=== PATIENT | female | born 1995 | race African-American/Black ===

== ENCOUNTER 2023-04-02 13:26 | Emergency (ER) | payer MEDICAID, SELFPAY ==
[2023-04-02] VITALS (15 sets, daily range): BP systolic 105–168; BP diastolic 52–101; PULSE 80–108; RESP 15–27; TEMP 36.7; O2SAT 98; BMI 42.2
--- NOTE | 2023-04-02 13:41 | ECG_ITS ---
The [facility] Test Date: 2023-04-02 Pat Name: LILIANA RHODES Department: Room: - Gender: Female Field Rep: : 1995 Requested By: Order Number: [id number] Reading MD: SHARYN JOHNSON Measurements Intervals [place] Rate: 92 P: 61 NM: 140 QRS: 85 QRSD: 90 T: 13 QT: 344 QTc: 393 Interpretive Statements 1100 Sinus rhythm 1102 Sinus arrhythmia 9110 normal ECG No previous ECG available for comparison Electronically Signed On 04-02-2023 19:01:34 EDT by SHARYN JOHNSON
--- NOTE | 2023-04-02 13:42 | XR_ITS ---
[address] [address] Patient Name: LILIANA RHODES MRN: [id number] date: 1995 Sex: F Assigned Patient Location: ER Current Patient Location: ER Accession/Order Number: [id number] Exam Date: 04/02/2023 14:11 Report Date: 04/02/2023 15:07 At the request of: CHICHI RODRIGUEZ Procedure: XR chest 1V EXAMINATION: XR chest 1V HISTORY: Hypertension and headache COMPARISON: Chest x-rays 11/18/2022 TECHNIQUE: Portable chest FINDINGS: The lung parenchyma is free of consolidation or infiltrate. No pneumothorax or pleural effusion. The cardiac, mediastinal and hilar contours are normal. The visualized osseous structures exhibit no gross abnormality. XR/XR chest 1V IMPRESSION: No acute cardiopulmonary abnormality. Electronically authenticated by: KATHARINA JOHNSON Date: 04/02/2023 15:07
--- NOTE | 2023-04-02 13:42 | CT_ITS ---
The [address] [address] Patient Name: LILIANA RHODES MRN: [id number] date: 1995 Sex: F Assigned Patient Location: ER Current Patient Location: ER Accession/Order Number: [id number] Exam Date: 04/02/2023 14:13 Report Date: 04/02/2023 15:08 At the request of: CHICHI RODRIGUEZ Procedure: CT head/brain wo con CT head/brain wo con, 04/02/2023 2:13 PM EDT INDICATION: hypertension, headache COMPARISON: CT of the head dated 07/19/2017 TECHNIQUE: Axial CT images of the brain from skull base to vertex, including portions of the face and sinuses, were obtained without contrast . Multiplanar reformatted images were generated and reviewed as needed. Dose reduction techniques were achieved by using automated exposure control and/or adjustment of mA and/or kV according to patient size and/or use of iterative reconstruction technique. FINDINGS: The cerebral sulci as well as ventricular system are appropriate for age. There is no intracranial mass, mass effect, midline shift, intra or extra-axial fluid collection or hemorrhage. The visualized portions of orbits, mastoid air cells as well as paranasal sinuses are unremarkable. There is no suspicious osteolytic or osteoblastic lesion. CT/CT head/brain wo con IMPRESSION: No acute intracranial process is noted. Electronically authenticated by: COLE GOLDEN Date: 04/02/2023 15:08
--- NOTE | 2023-04-02 13:43 | ED_ITS ---
HPI - General Adult General Chief complaint: Dizziness Stated complaint: HEADACHE/DIZZINESS Time Seen by Provider: 04/02/23 13:29 Source: patient Mode of arrival: walk-in History of Present Illness HPI narrative: [age] female presents for elevated blood pressure and dizziness and headache. Over the past week her blood pressure has been running high, she's had it checked by coworkers. 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 She's never been treated for high blood pressure Related Data Allergies Allergy/AdvReac Type Severity Reaction Status Date / Time azithromycin Allergy Severe Verified 04/02/23 13:36 [From Zithromax Z-Mayank] Sulfa (Sulfonamide Allergy Severe Verified 04/02/23 13:36 Antibiotics) eggs Allergy Severe Uncoded 04/02/23 13:36 Review of Systems ROS Narrative A ten point review of systems is negative except as noted above. Exam Narrative Exam Narrative: Nurses note and vital signs reviewed and patient is not hypoxic. General: The patient appears well and in no apparent distress. Patient is resting comfortably on cart. Skin: Warm, dry, no pallor noted. There is no rash noted. Head: Normocephalic, atraumatic Eye: Normal conjunctiva, no drainage Ears, Nose, Mouth, and Throat: oral mucosa is moist. Nares patent. Cardiovascular: Regular Rate and Rhythm Respiratory: Patient is in no distress, no accessory muscle use, lungs are clear to auscultation, no wheezing, rales or rhonchi Back: non-tender GI: obese soft and nontender Musculoskeletal: The patient has no evidence of calf tenderness, no pitting codey ma, symmetrical pulses noted bilaterally Neurological: A&O, normal speech Psychiatric: Cooperative Constitutional Vital Signs, click to edit/add: Last Vital Signs Temp 98.1 F 04/02/23 13:31 Pulse 86 04/02/23 14:40 Resp 25 H 04/02/23 14:40 BP 122/82 04/02/23 14:31 Pulse Ox 98 04/02/23 13:31 Course Vital Signs Vital signs: Vital Signs Temperature 98.1 F 04/02/23 13:31 Pulse Rate 108 H 04/02/23 13:31 Respiratory Rate 16 04/02/23 13:31 Blood Pressure 168/101 H 04/02/23 13:31 Pulse Oximetry 98 04/02/23 13:31 Temperature 98.1 F 04/02/23 13:31 Pulse Rate 86 04/02/23 14:40 Respiratory Rate 25 H 04/02/23 14:40 Blood Pressure 122/82 04/02/23 14:31 Pulse Oximetry 98 04/02/23 13:31 Medical Decision Making MDM Narrative Medical decision making narrative: her workup is negative and her blood pressure is normalized without intervention. She'll be discharged home but will call her doctor in the morning for blood pressure rechecked. Treatment diagnosis and follow-up were discussed with the patient and her mother. Differential Diagnosis Differential Diagnosis: hypertension, renal dysfunction, anxiety Lab Data Lab results reviewed: Yes I reviewed the patient's lab results Labs: Lab Results 04/02/23 Range/Units 13:45 WBC 10.5 (4.0-11.0) 10^3/uL RBC 4.21 (4.20-5.40) 10^6/uL Hgb 11.3 L (12.0-16.0) g/dL Hct 35.8 L (36.0-48.0) % MCV 85.0 (81.0-99.0) fL MCH 26.8 (26.7-34.0) pg MCHC 31.6 (29.9-35.2) g/dL RDW 14.3 (11.0-15.0) % Plt Count 348 (150-450) 10^3/uL MPV 9.6 (9.5-13.5) fL Neut % (Auto) 66.9 (43.0-75.0) % Lymph % (Auto) 24.9 (20.5-60.0) % [place] % (Auto) 5.0 (1.7-12.0) % Eos % (Auto) 2.2 (0.9-7.0) % Baso % (Auto) 0.6 (0.2-2.0) % Neut # (Auto) 7.0 H (1.4-6.5) 10^3/uL Lymph # (Auto) 2.6 (1.2-3.8) 10^3/uL [place] # (Auto) 0.5 (0.3-0.8) 10^3/uL Eos # (Auto) 0.2 (0.0-0.7) 10^3/uL Baso # (Auto) 0.1 (0.0-0.1) 10^3/uL Abs Immat Gran (auto) 0.04 H (0.00-0.03) 10^3/uL Imm/Tot Granulo (auto) 0.4 (0.0-0.5) % Sodium 140 (136-145) mmol/L Potassium 3.5 (3.5-5.1) mmol/L Chloride 105 (98-107) mmol/L Carbon Dioxide 26.7 (21.0-32.0) mmol/L Anion Gap 11.8 BUN 9.0 (7.0-18.0) mg/dL Creatinine 0.74 (0.55-1.02) mg/dL Est GFR ( Amer) >60 (>=60) Est GFR (Non-Af Amer) >60 (>=60) BUN/Creatinine Ratio 12.2 Glucose 80 (74-106) mg/dL Calcium 8.8 (8.5-10.1) mg/dL Serum HCG, Qual Negative (NEGATIVE) Imaging Data CT brain and chest x-ray: Radiologist's impression: Procedure: CT head/brain wo con CT head/brain wo con, 04/02/2023 2:13 PM EDT INDICATION: hypertension, headache COMPARISON: CT of the head dated 07/19/2017 TECHNIQUE: Axial CT images of the brain from skull base to vertex, including portions of the face and sinuses, were obtained without contrast . Multiplanar reformatted images were generated and reviewed as needed. Dose reduction techniques were achieved by using automated exposure control and/or adjustment of mA and/or kV according to patient size and/or use of iterative reconstruction technique. FINDINGS: The cerebral sulci as well as ventricular system are appropriate for age. There is no intracranial mass, mass effect, midline shift, intra or extra-axial fluid collection or hemorrhage. The visualized portions of orbits, mastoid air cells as well as paranasal sinuses are unremarkable. There is no suspicious osteolytic or osteoblastic lesion. IMPRESSION: No acute intracranial process is noted. Electronically authenticated by: COLE GOLDEN Date: 04/02/2023 15:08 Procedure: XR chest 1V EXAMINATION: XR chest 1V HISTORY: Hypertension and headache COMPARISON: Chest x-rays 11/18/2022 TECHNIQUE: Portable chest FINDINGS: The lung parenchyma is free of consolidation or infiltrate. No pneumothorax or pleural effusion. The cardiac, mediastinal and hilar contours are normal. The visualized osseous structures exhibit no gross abnormality. IMPRESSION: No acute cardiopulmonary abnormality. Electronically authenticated by: KATHARINA JOHNSON Date: 04/02/2023 15:07 ECG Data Attestation: I personally reviewed and interpreted this ECG as follows: (EKG on my interpretation shows normal sinus rhythm, no acute changes, rate of 92.) Discharge Plan Discharge Chief Complaint: Dizziness Clinical Impression: Dizziness Patient Disposition: Home, Self-Care Time of Disposition Decision: 15:18 Condition: Good Mode of Transportation: Private Vehicle Instructions: Dizziness (ED) Additional Instructions: call your PCP in the morning for follow-up appointment and blood pressure recheck Stand Alone Forms: Portal Instructions Referrals: Physician,Non-Staff, MD [Primary Care Provider] - 1 week
[2023-04-02 13:51] LABS: Basophils Absolute Auto 0.1 10^3/uL (0.0-0.1); Basophils Percent Auto 0.6 % (0.2-2.0); Eosinophils Absolute Auto 0.2 10^3/uL (0.0-0.7); Eosinophils Percent Auto 2.2 % (0.9-7.0); Hematocrit 35.8 % (36.0-48.0); Hemoglobin 11.3 g/dL (12.0-16.0); Immature Granulocytes Abs Auto 0.04 10^3/uL (0.00-0.03); Immature Granulocytes Pct Auto 0.4 % (0.0-0.5); Lymphocytes Absolute Auto 2.6 10^3/uL (1.2-3.8); Lymphocytes Percent Auto 24.9 % (20.5-60.0); Mean Corpuscular HGB Conc 31.6 g/dL (29.9-35.2); Mean Corpuscular Hemoglobin 26.8 pg (26.7-34.0); Mean Platelet Volume 9.6 fL (9.5-13.5); Monocytes Absolute Auto 0.5 10^3/uL (0.3-0.8); Neutrophils Percent Auto 66.9 % (43.0-75.0); Platelet Count 348 10^3/uL (150-450); Red Blood Count 4.21 10^6/uL (4.20-5.40); Red Cell Distribution Width 14.3 % (11.0-15.0); White Blood Count 10.5 10^3/uL (4.0-11.0)
[2023-04-02 14:02] LABS: Anion Gap 11.8; BUN Creatinine Ratio 12.2; Calcium 8.8 mg/dL (8.5-10.1); Carbon Dioxide 26.7 mmol/L (21.0-32.0); Chloride 105 mmol/L (98-107); Estimated GFR (African America >60 (>=60); Estimated GFR (Non-African Ame >60 (>=60); Glucose 80 mg/dL (74-106); HCG Qualitative NEGATIVE (NEGATIVE); Potassium 3.5 mmol/L (3.5-5.1); Sodium 140 mmol/L (136-145)
== END 2023-04-02 15:40 | disposition home or self-care (01) ==
PROVIDERS: Emergency Provider Emergency Medicine
DX: R42 Dizziness and giddiness (principal)
CPT/HCPCS: 36415; 70450; 71045; 80048; 84703; 85025; 93005; 99285

== ENCOUNTER 2023-06-30 19:19 | Emergency (ER) | payer MEDICAID, SELFPAY ==
[2023-06-30 19:24] VITALS: BP 160/95; PULSE 115; RESP 20; TEMP 37.2; O2SAT 97; BMI 45.6
--- NOTE | 2023-06-30 19:31 | CT_ITS ---
The [address] [address] Patient Name: LILIANA RHODES MRN: [id number] date: 1995 Sex: F Assigned Patient Location: ER Current Patient Location: ER Accession/Order Number: [id number] Exam Date: 06/30/2023 20:27 Report Date: 06/30/2023 21:29 At the request of: KENNY HADDAD Procedure: CT abdomen pelvis w con CT ABDOMEN AND PELVIS WITH CONTRAST: INDICATION: llq pain with diarrhea. COMPARISON: None. TECHNIQUE:Multiple thin section transaxial slices were acquired through the abdomen and pelvis with intravenous contrast. Coronal and sagittal reconstructed images were reviewed. Oral contrastWas not administered. FINDINGS: LOWER CHEST: The lower chest is unremarkable. LIVER: The liver is unremarkable. GALLBLADDER AND BILIARY SYSTEM: No obvious ductal dilation. No calcified stones. SPLEEN: The spleen is unremarkable. PANCREAS: The pancreas is unremarkable. ADRENAL GLANDS: The adrenal glands are unremarkable. KIDNEYS AND URETERS: There is no hydronephrosis of the kidneys.There is a cortical based heterogeneous high attenuation nodular density arising from the posterior medial mid right kidney measuring 1.0 cm. This is not compatible with a simple cyst. The ureters are within normal limits without obstructing urologic calcifications. VASCULATURE: Vascularity is unremarkable. PERITONEUM/RETROPERITONEUM: Peritoneum/retroperitoneum is unremarkable. LYMPH NODES: No suspicious lymphadenopathy. GASTROINTESTINAL TRACT: The bowel is normal in caliber.No acute inflammatory changes are present in the bowel.The appendix is visualized and is not inflamed. BLADDER: The urinary bladder is unremarkable. REPRODUCTIVE SYSTEM: Reproductive system is unremarkable. BODY WALL: There is a tiny fat-containing umbilical hernia. BONES: Osseous structures are unremarkable. CT/CT abdomen pelvis w con IMPRESSION: 1. No acute inflammatory process or obstructive uropathy is present in the abdomen or pelvis. 2. Heterogeneous hyperdense nodule arising from the posterior medial right kidney measuring 1.0 cm not compatible with a simple cyst. Given the size and location of this finding in the kidney, renal protocol CT would be recommended for better characterization. Electronically authenticated by: NADEEM CASTRO Date: 06/30/2023 21:29
--- NOTE | 2023-06-30 19:39 | ED_ITS ---
Documented by User: Janice Haddad 07/07/23 13:43 HPI - General Adult General Chief complaint: Abdominal Pain Stated complaint: Dizziness Abdominal Pain Time Seen by Provider: 06/30/23 19:25 Source: patient Mode of arrival: walk-in History of Present Illness HPI narrative: 28-year-old female presents to the er with chief complaint of left lower quadrant abdominal pain. She states she's had diarrhea for the last twenty-four hours. She feels dizziness and lightheaded because he's not been able to eat or drink. She states she has had dizziness on and off for last 2-3 weeks. Patient states she does have a history of vertigo but the dizziness is different. She states she also feels congested. Patient has pain to palpation the left lower quadrant. Denies any known history of . Related Data Home Medications Medication Instructions Recorded Confirmed aspirin 325 mg capsule 325 mg PO DAILY 06/30/23 06/30/23 Previous Rx's Medication Instructions Recorded hyoscyamine sulfate 0.125 mg 0.125 mg PO Q6H PRN abdominal pain 06/30/23 sublingual tablet (Levsin/SL) #20 tabs ondansetron 4 mg disintegrating 4 mg PO Q6H PRN nausea and 06/30/23 tablet vomiting #20 tabs Allergies Allergy/AdvReac Type Severity Reaction Status Date / Time azithromycin Allergy Severe Verified 06/30/23 19:31 [From Zithromax Z-Myaank] Sulfa (Sulfonamide Allergy Severe Verified 06/30/23 19:31 Antibiotics) eggs Allergy Severe Uncoded 06/30/23 19:31 Review of Systems ROS Narrative All Systems are negative except as noted/marked.All systems reviewed and otherwise negative Exam Narrative Exam Narrative: Nurses note and vital signs reviewed and patient is not hypoxic. General: The patient appears well and in no apparent distress. Patient is resting comfortably on cart. Skin: Warm, dry, no pallor noted. There is no rash noted. Head: Normocephalic, atraumatic eyes:perrl. no nystagmus Ears, Nose, Mouth, and Throat: oral mucosa is moist. Nares patent. Mouth without vesicles. Ear canals patent. Tm's without Erythema Cardiovascular: Regular Rate and Rhythm Respiratory: Patient is in no distress, no accessory muscle use, lungs are clear to auscultation, no wheezing, rales or rhonchi Back: non-tender, no CVA tenderness bilaterally to percussion. GI: LLQ pain to palpation, no rebound or guarding. Normal bowel sounds, no tenderness to palpation, no masses appreciated. No rebound, guarding, or rigidity noted. Musculoskeletal: The patient has no evidence of calf tenderness, no pitting edema, symmetrical pulses noted bilaterally Neurological: A&O x4, normal speech Psychiatric: Cooperative Constitutional Vital Signs, click to edit/add: Last Vital Signs Temp 98.9 F 06/30/23 19:24 Pulse 92 H 06/30/23 21:46 Resp 16 06/30/23 21:46 BP 143/89 H 06/30/23 21:46 Pulse Ox 98 06/30/23 21:46 O2 Del Method Room Air 06/30/23 20:44 Course Vital Signs Vital signs: Vital Signs Temperature 98.9 F 06/30/23 19:24 Pulse Rate 115 H 06/30/23 19:24 Respiratory Rate 20 06/30/23 19:24 Blood Pressure 160/95 H 06/30/23 19:24 Pulse Oximetry 97 06/30/23 19:24 Oxygen Delivery Method Room Air 06/30/23 19:24 Temperature 98.9 F 06/30/23 19:24 Pulse Rate 92 H 06/30/23 21:46 Respiratory Rate 16 06/30/23 21:46 Blood Pressure 143/89 H 06/30/23 21:46 Pulse Oximetry 98 06/30/23 21:46 Oxygen Delivery Method Room Air 06/30/23 20:44 Medical Decision Making MDM Narrative Medical decision making narrative: Patient presents emergency room chief complaint of left lower quadrant abdominal pain with mild tenderness to palpation. She also states she's had diarrhea with radiation into her back for pain as well. Patient is returned from CT scan of abdomen, pending results. Physician of care to Dr. Weiner. Patient stable IV and fluids up and establish she was also medicated with Zofran and Toradol. Medical Records Medical records reviewed: Yes I reviewed the patient's medical records Lab Data Lab results reviewed: Yes I reviewed the patient's lab results Labs: Lab Results 06/30/23 06/30/23 06/30/23 Range/Units 19:34 19:37 19:55 WBC 12.9 H (4.0-11.0) 10^3/uL RBC 4.44 (4.20-5.40) 10^6/uL Hgb 11.7 L (12.0-16.0) g/dL Hct 36.7 (36.0-48.0) % MCV 82.7 (81.0-99.0) fL MCH 26.4 L (26.7-34.0) pg MCHC 31.9 (29.9-35.2) g/dL RDW 14.3 (11.0-15.0) % Plt Count 436 (150-450) 10^3/uL MPV 9.5 (9.5-13.5) fL Neut % (Auto) 75.9 H (43.0-75.0) % Lymph % (Auto) 16.7 L (20.5-60.0) % [place] % (Auto) 6.4 (1.7-12.0) % Eos % (Auto) 0.3 L (0.9-7.0) % Baso % (Auto) 0.2 (0.2-2.0) % Neut # (Auto) 9.8 H (1.4-6.5) 10^3/uL Lymph # (Auto) 2.2 (1.2-3.8) 10^3/uL [place] # (Auto) 0.8 (0.3-0.8) 10^3/uL Eos # (Auto) 0.0 (0.0-0.7) 10^3/uL Baso # (Auto) 0.0 (0.0-0.1) 10^3/uL Abs Immat Gran (auto) 0.06 H (0.00-0.03) 10^3/uL Imm/Tot Granulo (auto) 0.5 (0.0-0.5) % Sodium 136 (136-145) mmol/L Potassium 3.2 L (3.5-5.1) mmol/L Chloride 103 (98-107) mmol/L Carbon Dioxide 25.8 (21.0-32.0) mmol/L Anion Gap 10.4 BUN 11.0 (7.0-18.0) mg/dL Creatinine 0.92 (0.55-1.02) mg/dL Est GFR ( Amer) >60 (>=60) Est GFR (Non-Af Amer) >60 (>=60) BUN/Creatinine Ratio 12.0 Glucose 94 (74-106) mg/dL Calcium 9.0 (8.5-10.1) mg/dL Total Bilirubin 0.4 (0.2-1.0) mg/dL AST 8 L (15-37) U/L ALT 15 (14-59) U/L Alkaline Phosphatase 69 (46-116) U/L Total Protein 7.2 (6.4-8.2) g/dL Albumin 3.4 (3.4-5.0) g/dL Globulin 3.8 g/dL Albumin/Globulin Ratio 0.9 Lipase 31.0 (16.0-77.0) U/L Urine Color Lt. yellow (YELLOW) Urine Clarity Clear (CLEAR) Urine pH 6.5 (5.0-9.0) Ur Specific [place] <=1.005 A (1.005-1.025) Urine Protein Negative (NEG/TRACE) mg/dL Urine Glucose (UA) Negative (NEGATIVE) mg/dL Urine Ketones Negative (NEGATIVE) mg/dL Urine Occult Blood Large A (NEGATIVE) Urine Nitrite Negative (NEGATIVE) Urine Bilirubin Negative (NEGATIVE) Urine Urobilinogen 0.2 (0.2-1.0) EU/dL Ur Leukocyte Esterase Negative (NEGATIVE) Urine RBC 2-5 A (0-2) #/HPF Urine WBC None seen (NONE SEEN) #/HPF Ur Squamous Epith Cells None seen (NONE/RARE) #/LPF Urine Crystals None seen (None Seen) #/HPF Urine Bacteria None seen (NONE SEEN) #/HPF Urine Casts None seen (NONE SEEN) #/LPF Urine Mucus None seen (NONE SEEN) Urine HCG, Qual Negative (NEGATIVE) SARS-CoV-2 (PCR) Negative (NEGATIVE) SARS-CoV-2 RNA (MARY) Not detected (NOT DETECTE) Discharge Plan Discharge Chief Complaint: Abdominal Pain Clinical Impression: Abdominal pain Patient Disposition: Home, Self-Care Time of Disposition Decision: 21:41 Prescriptions / Home Meds: New ondansetron 4 mg tablet,disintegrating 4 mg PO Q6H PRN (Reason: nausea and vomiting) Qty: 20 0RF hyoscyamine sulfate [Levsin/SL] 0.125 mg tablet, sublingual 0.125 mg PO Q6H PRN (Reason: abdominal pain) Qty: 20 0RF No Action aspirin 325 mg capsule 325 mg PO DAILY Instructions: Abdominal Pain (ED) Stand Alone Forms: Portal Instructions Referrals: Physician,Non-Staff, MD [Primary Care Provider] - 1 week Discharge Date/Time: 06/30/23 21:52 Documented by User: uEgenio Weiner 06/30/23 21:42 HPI - General Adult General Chief complaint: Abdominal Pain Stated complaint: Dizziness Abdominal Pain Time Seen by Provider: 06/30/23 19:25 Related Data Home Medications Medication Instructions Recorded Confirmed aspirin 325 mg capsule 325 mg PO DAILY 06/30/23 06/30/23 Previous Rx's Medication Instructions Recorded hyoscyamine sulfate 0.125 mg 0.125 mg PO Q6H PRN abdominal pain 06/30/23 sublingual tablet (Levsin/SL) #20 tabs ondansetron 4 mg disintegrating 4 mg PO Q6H PRN nausea and 06/30/23 tablet vomiting #20 tabs Allergies Allergy/AdvReac Type Severity Reaction Status Date / Time azithromycin Allergy Severe Verified 06/30/23 19:31 [From Zithromax Z-Mayank] Sulfa (Sulfonamide Allergy Severe Verified 06/30/23 19:31 Antibiotics) eggs Allergy Severe Uncoded 06/30/23 19:31 Exam Constitutional Vital Signs, click to edit/add: Last Vital Signs Temp 98.9 F 06/30/23 19:24 Pulse 92 H 06/30/23 21:46 Resp 16 06/30/23 21:46 BP 143/89 H 06/30/23 21:46 Pulse Ox 98 06/30/23 21:46 O2 Del Method Room Air 06/30/23 20:44 Course Vital Signs Vital signs: Vital Signs Temperature 98.9 F 06/30/23 19:24 Pulse Rate 115 H 06/30/23 19:24 Respiratory Rate 20 06/30/23 19:24 Blood Pressure 160/95 H 06/30/23 19:24 Pulse Oximetry 97 06/30/23 19:24 Oxygen Delivery Method Room Air 06/30/23 19:24 Temperature 98.9 F 06/30/23 19:24 Pulse Rate 92 H 06/30/23 21:46 Respiratory Rate 16 06/30/23 21:46 Blood Pressure 143/89 H 06/30/23 21:46 Pulse Oximetry 98 06/30/23 21:46 Oxygen Delivery Method Room Air 06/30/23 20:44 Medical Decision Making MDM Narrative Medical decision making narrative: Patient presents emergency room chief complaint of left lower quadrant abdominal pain with mild tenderness to palpation. She also states she's had diarrhea with radiation into her back for pain as well. Patient is returned from CT scan of abdomen, pending results. Physician of care to Dr. Weiner. Patient stable IV and fluids up and establish she was also medicated with Zofran and Toradol. Attending physician note - patient was examined and evaluated by the PA - see her note. I met with the patient and evaluated her. Reviewed her tests results - CT abd/pelvis did not reveal any acute pathology to account for the patient's pain/symptoms, Incidental findings of right renal cyst - patient informed and given copy of rad report to take with her for PCP follow up and non emergent renal CT. WBC slightly elevated at 12.9. Potassium slightly decreased at 3.2. Normal renal function and LFTs. Negative Lipase. UA with occult blood but no other sign of infection. She is on her menstrual period now. Covid negative. Patient given reassurance with negative ED workup. Discharged home with prescriptions for Levsin and ODT Zofran. Instructed to maintain clear liquid diet and advance as tolerated. PCP follow up recommended. ED return if she worsens. - Alexander, DO Lab Data Labs: Lab Results 06/30/23 06/30/23 06/30/23 Range/Units 19:34 19:37 19:55 WBC 12.9 H (4.0-11.0) 10^3/uL RBC 4.44 (4.20-5.40) 10^6/uL Hgb 11.7 L (12.0-16.0) g/dL Hct 36.7 (36.0-48.0) % MCV 82.7 (81.0-99.0) fL MCH 26.4 L (26.7-34.0) pg MCHC 31.9 (29.9-35.2) g/dL RDW 14.3 (11.0-15.0) % Plt Count 436 (150-450) 10^3/uL MPV 9.5 (9.5-13.5) fL Neut % (Auto) 75.9 H (43.0-75.0) % Lymph % (Auto) 16.7 L (20.5-60.0) % [place] % (Auto) 6.4 (1.7-12.0) % Eos % (Auto) 0.3 L (0.9-7.0) % Baso % (Auto) 0.2 (0.2-2.0) % Neut # (Auto) 9.8 H (1.4-6.5) 10^3/uL Lymph # (Auto) 2.2 (1.2-3.8) 10^3/uL [place] # (Auto) 0.8 (0.3-0.8) 10^3/uL Eos # (Auto) 0.0 (0.0-0.7) 10^3/uL Baso # (Auto) 0.0 (0.0-0.1) 10^3/uL Abs Immat Gran (auto) 0.06 H (0.00-0.03) 10^3/uL Imm/Tot Granulo (auto) 0.5 (0.0-0.5) % Sodium 136 (136-145) mmol/L Potassium 3.2 L (3.5-5.1) mmol/L Chloride 103 (98-107) mmol/L Carbon Dioxide 25.8 (21.0-32.0) mmol/L Anion Gap 10.4 BUN 11.0 (7.0-18.0) mg/dL Creatinine 0.92 (0.55-1.02) mg/dL Est GFR ( Amer) >60 (>=60) Est GFR (Non-Af Amer) >60 (>=60) BUN/Creatinine Ratio 12.0 Glucose 94 (74-106) mg/dL Calcium 9.0 (8.5-10.1) mg/dL Total Bilirubin 0.4 (0.2-1.0) mg/dL AST 8 L (15-37) U/L ALT 15 (14-59) U/L Alkaline Phosphatase 69 (46-116) U/L Total Protein 7.2 (6.4-8.2) g/dL Albumin 3.4 (3.4-5.0) g/dL Globulin 3.8 g/dL Albumin/Globulin Ratio 0.9 Lipase 31.0 (16.0-77.0) U/L Urine Color Lt. yellow (YELLOW) Urine Clarity Clear (CLEAR) Urine pH 6.5 (5.0-9.0) Ur Specific [place] <=1.005 A (1.005-1.025) Urine Protein Negative (NEG/TRACE) mg/dL Urine Glucose (UA) Negative (NEGATIVE) mg/dL Urine Ketones Negative (NEGATIVE) mg/dL Urine Occult Blood Large A (NEGATIVE) Urine Nitrite Negative (NEGATIVE) Urine Bilirubin Negative (NEGATIVE) Urine Urobilinogen 0.2 (0.2-1.0) EU/dL Ur Leukocyte Esterase Negative (NEGATIVE) Urine RBC 2-5 A (0-2) #/HPF Urine WBC None seen (NONE SEEN) #/HPF Ur Squamous Epith Cells None seen (NONE/RARE) #/LPF Urine Crystals None seen (None Seen) #/HPF Urine Bacteria None seen (NONE SEEN) #/HPF Urine Casts None seen (NONE SEEN) #/LPF Urine Mucus None seen (NONE SEEN) Urine HCG, Qual Negative (NEGATIVE) SARS-CoV-2 (PCR) Negative (NEGATIVE) SARS-CoV-2 RNA (MARY) Not detected (NOT DETECTE) Imaging Data CT scan - abdomen: Radiologist's impression: Patient Name: LILIANA RHODES MRN: [id number] date: 1995 Sex: F Assigned Patient Location: ER Current Patient Location: ER Accession/Order Number: [id number] Exam Date: 06/30/2023 20:27 Report Date: 06/30/2023 21:29 At the request of: JANICE HADDAD Procedure: CT abdomen pelvis w con CT ABDOMEN AND PELVIS WITH CONTRAST: INDICATION: llq pain with diarrhea. COMPARISON: None. TECHNIQUE:Multiple thin section transaxial slices were acquired through the abdomen and pelvis with intravenous contrast. Coronal and sagittal reconstructed images were reviewed. Oral contrastWas not administered. FINDINGS: LOWER CHEST: The lower chest is unremarkable. LIVER: The liver is unremarkable. GALLBLADDER AND BILIARY SYSTEM: No obvious ductal dilation. No calcified stones. SPLEEN: The spleen is unremarkable. PANCREAS: The pancreas is unremarkable. ADRENAL GLANDS: The adrenal glands are unremarkable. KIDNEYS AND URETERS: There is no hydronephrosis of the kidneys.There is a cortical based heterogeneous high attenuation nodular density arising from the posterior medial mid right kidney measuring 1.0 cm. This is not compatible with a simple cyst. The ureters are within normal limits without obstructing urologic calcifications. VASCULATURE: Vascularity is unremarkable. PERITONEUM/RETROPERITONEUM: Peritoneum/retroperitoneum is unremarkable. LYMPH NODES: No suspicious lymphadenopathy. GASTROINTESTINAL TRACT: The bowel is normal in caliber.No acute inflammatory changes are present in the bowel.The appendix is visualized and is not inflamed. BLADDER: The urinary bladder is unremarkable. REPRODUCTIVE SYSTEM: Reproductive system is unremarkable. BODY WALL: There is a tiny fat-containing umbilical hernia. BONES: Osseous structures are unremarkable. IMPRESSION: 1. No acute inflammatory process or obstructive uropathy is present in the abdomen or pelvis. 2. Heterogeneous hyperdense nodule arising from the posterior medial right kidney measuring 1.0 cm not compatible with a simple cyst. Given the size and location of this finding in the kidney, renal protocol CT would be recommended for better characterization. Electronically authenticated by: NADEEM CASTRO Date: 06/30/2023 21:29 Discharge Plan Discharge Chief Complaint: Abdominal Pain Clinical Impression: Abdominal pain Patient Disposition: Home, Self-Care Time of Disposition Decision: 21:41 Prescriptions / Home Meds: New ondansetron 4 mg tablet,disintegrating 4 mg PO Q6H PRN (Reason: nausea and vomiting) Qty: 20 0RF hyoscyamine sulfate [Levsin/SL] 0.125 mg tablet, sublingual 0.125 mg PO Q6H PRN (Reason: abdominal pain) Qty: 20 0RF No Action aspirin 325 mg capsule 325 mg PO DAILY Instructions: Abdominal Pain (ED) Stand Alone Forms: Portal Instructions Referrals: Physician,Non-Staff, MD [Primary Care Provider] - 1 week Discharge Date/Time: 06/30/23 21:52
[2023-06-30 19:43] VITALS: O2SAT 98
[2023-06-30] MEDS: ONDANSETRON PF 4 MG/2 ML VIAL IV (19:47)
[2023-06-30] MEDS: KETOROLAC TROMETHAMINE 30 MG/ML VIAL IVP (19:47)
[2023-06-30] MEDS: 0.9 % SODIUM CHLORIDE 1,000 ML 999 ML IV (19:48)
[2023-06-30 19:51] LABS: Basophils Percent Auto 0.2 % (0.2-2.0); Eosinophils Percent Auto 0.3 % (0.9-7.0); Hematocrit 36.7 % (36.0-48.0); Hemoglobin 11.7 g/dL (12.0-16.0); Immature Granulocytes Abs Auto 0.06 10^3/uL (0.00-0.03); Immature Granulocytes Pct Auto 0.5 % (0.0-0.5); Lymphocytes Absolute Auto 2.2 10^3/uL (1.2-3.8); Lymphocytes Percent Auto 16.7 % (20.5-60.0); Mean Corpuscular HGB Conc 31.9 g/dL (29.9-35.2); Mean Corpuscular Hemoglobin 26.4 pg (26.7-34.0); Mean Corpuscular Volume 82.7 fL (81.0-99.0); Mean Platelet Volume 9.5 fL (9.5-13.5); Monocytes Absolute Auto 0.8 10^3/uL (0.3-0.8); Monocytes Percent Auto 6.4 % (1.7-12.0); Neutrophils Absolute Auto 9.8 10^3/uL (1.4-6.5); Neutrophils Percent Auto 75.9 % (43.0-75.0); Platelet Count 436 10^3/uL (150-450); Red Blood Count 4.44 10^6/uL (4.20-5.40); Red Cell Distribution Width 14.3 % (11.0-15.0); White Blood Count 12.9 10^3/uL (4.0-11.0)
[2023-06-30 19:52] LABS: Bilirubin Urine NEGATIVE (NEGATIVE); Blood Urine LARGE (NEGATIVE); Clarity Urine CLEAR (CLEAR); Color Urine LT. YELLOW (YELLOW); Glucose Urine UA NEGATIVE (NEGATIVE); Ketones Urine NEGATIVE (NEGATIVE); Leukocyte Esterase Urine NEGATIVE (NEGATIVE); Nitrite Urine NEGATIVE (NEGATIVE); Protein Urine NEGATIVE (NEG/TRACE); Specific Gravity Urine <=1.005 (1.005-1.025); Urobilinogen Urine 0.2 EU/dL (0.2-1.0); pH Urine 6.5 (5.0-9.0)
[2023-06-30 19:57] LABS: HCG Qualitative Urine* NEGATIVE (NEGATIVE)
[2023-06-30 20:05] LABS: Bacteria Urine NONE SEEN #/HPF (NONE SEEN); Cast Seen? NONE SEEN #/LPF (NONE SEEN); Crystals Seen? None Seen #/HPF (None Seen); Mucus Urine NONE SEEN (NONE SEEN); Squamous Epithelial Cell Urine NONE SEEN #/LPF (NONE/RARE); WBC Urine NONE SEEN #/HPF (NONE SEEN)
[2023-06-30 20:15] LABS: Alanine Aminotransferase 15 U/L (14-59); Albumin Globulin Ratio 0.9; Albumin Level 3.4 g/dL (3.4-5.0); Alkaline Phosphatase 69 U/L (46-116); Anion Gap 10.4; Aspartate Amino Transferase 8 U/L (15-37); Bilirubin Total 0.4 mg/dL (0.2-1.0); Carbon Dioxide 25.8 mmol/L (21.0-32.0); Chloride 103 mmol/L (98-107); Estimated GFR (African America >60 (>=60); Estimated GFR (Non-African Ame >60 (>=60); Globulin 3.8 g/dL; Glucose 94 mg/dL (74-106); Potassium 3.2 mmol/L (3.5-5.1); Sodium 136 mmol/L (136-145); Total Protein 7.2 g/dL (6.4-8.2)
[2023-06-30 20:39] LABS: SARS-CoV-2 Ag NEGATIVE (NEGATIVE)
[2023-06-30 20:44] VITALS: BP 129/76; PULSE 98; RESP 16; O2SAT 97
[2023-06-30] MEDS: POTASSIUM CHLORIDE 10 MEQ ER TABLET 40 MEQ PO (21:21)
[2023-06-30 21:46] VITALS: BP 143/89; PULSE 92; RESP 16; O2SAT 98
[2023-07-01 13:17] LABS: SARS-CoV-2 NAA NOT DETECTED (NOT DETECTE)
== END 2023-06-30 21:52 | disposition home or self-care (01) ==
PROVIDERS: Physician Assistant; Emergency Provider Emergency Medicine
DX: R10.32 Left lower quadrant pain (principal); R19.7 Diarrhea, unspecified; R42 Dizziness and giddiness; Z79.82 Long term (current) use of aspirin
CPT/HCPCS: 36415; 74177; 80053; 81001; 83690; 84703; 85025; 87635; 87811; 96374; 96375; 99285; Q9967

== ENCOUNTER 2023-07-27 14:33 | Outpatient (OUT) | payer MEDICAID, SELFPAY ==
[2023-07-27 14:44] LABS: Basophils Absolute Auto 0.1 10^3/uL (0.0-0.1); Basophils Percent Auto 0.8 % (0.2-2.0); Eosinophils Absolute Auto 0.8 10^3/uL (0.0-0.7); Hematocrit 36.7 % (36.0-48.0); Hemoglobin 11.4 g/dL (12.0-16.0); Immature Granulocytes Abs Auto 0.03 10^3/uL (0.00-0.03); Immature Granulocytes Pct Auto 0.4 % (0.0-0.5); Lymphocytes Absolute Auto 1.9 10^3/uL (1.2-3.8); Mean Corpuscular HGB Conc 31.1 g/dL (29.9-35.2); Mean Corpuscular Volume 83.8 fL (81.0-99.0); Mean Platelet Volume 9.2 fL (9.5-13.5); Monocytes Absolute Auto 0.5 10^3/uL (0.3-0.8); Monocytes Percent Auto 6.4 % (1.7-12.0); Neutrophils Absolute Auto 4.2 10^3/uL (1.4-6.5); Neutrophils Percent Auto 56.4 % (43.0-75.0); Platelet Count 359 10^3/uL (150-450); Red Blood Count 4.38 10^6/uL (4.20-5.40); Red Cell Distribution Width 14.6 % (11.0-15.0); White Blood Count 7.5 10^3/uL (4.0-11.0)
--- OUTSIDE RECORDS SUMMARY | 2023-07-27 14:44 | XMS_ITS | CCD ---
Author Name Unknown Address [address] [place] [address] Organization [facility] Care Team Providers Care Retina Subspecialist Name Role Phone Zoran Flores Primary Care Provider Heather Taylor MD Unavailable Michael Wiseman MD Unavailable Heather Taylor MD Unavailable [phone] Michael Wiseman MD Unavailable Heather Taylor MD Unavailable Michael Wiseman MD Unavailable [phone] PROVIDER, UNKNOWN Attending Unavailable PROVIDER, UNKNOWN Admitting Unavailable PATIENT, SELF Referring Unavailable SANDRA, DR ZORAN Baez Consulting Unavailable EDITHEREDel, DR ZORAN Baez Primary Care Unavailable NADERER, DR ZORAN Baez Admitting Unavailable NADEREDel, DR ZORAN Baez Attending Unavailable NADEREDel, DR ZORAN Baez Primary Care Unavailable MISC, DR HOFFMAN Attending Unavailable MISC, DR HOFFMAN Consulting Unavailable MISC, DR HOFFMAN Admitting Unavailable LELEONARD Consulting Unavailable MISC, DR HOFFMAN Admitting Unavailable MISC, DR HOFFMAN Attending Unavailable NADEREDel, DR ZORAN Baez Primary Care Unavailable NADERER, DR ZORAN Baez Primary Care Unavailable PAY ., DR MELO Admitting Unavailable PAY ., DR MELO Attending Unavailable PAY ., DR MELO Consulting Unavailable MATEUS BUTCHER Consulting Unavailable LAKESHIA CAMEJO Consulting Unavailable Maribel Flanagan Unavailable MD Zoran Flores Primary Care Provider CHELY Flanagan Attending Provider ZORAN FLORES Primary Care Unavailabl e Maribel Flanagan Attending Unavailable Maribel Flanagan Admitting Unavailable Zoran Flores Primary Care Unavailable Jeremiah Chen Unavailable MARYANA AMADOR Referring Unavailable HANY ELLISON Attending Unavailable Allergies Allergy Classification Reported Allergen(s) Allergy Type Date of Onset Reaction(s) Facility Pollen (4 sources) bee pollen Substance Allergy 06-10-20 15 Itching [facility] Sulfonamides (antibiotic) (4 sources) Sulfonamides (Antibiotic) Drug Allergy 06-10-20 15 Nausea And Vomiting [facility] (3 sources) bee pollen; Translations: [POLLEN EXTRACT] Propensity to adverse reactions to drug 06-10-20 15 Itching [facility] Work Phone: (3 sources) Sulfonamides (Antibiotic); Translations: [SULFA ANTIBIOTICS] Propensity to adverse reactions to drug 06-10-20 15 Nausea And Vomiting [facility] Work Phone: (5 sources) Rowlett-Containing Products Propensity to adverse reactions to drug 06-10-20 15 Nausea And Vomiting [facility] Work Phone: (5 sources) Eggs Or Egg-Derived Products Propensity to adverse reactions to drug 06-10-20 15 Nausea And Vomiting [facility] Work Phone: (2 sources) Other Propensity to adverse reactions 06-10-20 15 Itching [facility] Work Phone: (5 sources) Yeast-Related Products Propensity to adverse reactions to drug 06-10-20 15 Other (See Comments) [facility] Work Phone: (2 sources) Bee pollen; Translations: [BEE POLLEN] Drug Allergy 12-17-19 17 Itching [facility] (7 sources) [place] Oil; Translations: [CORN OIL] Drug Allergy 12-17-19 17 [facility] (2 sources) cultivated mushroom extract; Translations: [MUSHROOM EXTRACT COMPLEX] Drug Allergy 10-24-19 19 Nausea [facility] (2 sources) Lactose; Translations: [LACTOSE] Drug Allergy 10-24-19 19 Vomiting [facility] (2 sources) sulfaSALAzine; Translations: [SULFASALAZINE] Drug Allergy 12-17-19 17 [facility] (7 sources) WHEAT DEXTRIN; Translations: [WHEAT BRAN] Drug Allergy 12-08-19 19 [facility] Work Phone: (7 sources) [employer]-Related Products; Translations: [CORN-RELATED PRODUCTS] Propensity to adverse reactions to drug 06-10-20 15 Nausea [facility] (7 sources) Egg Or Chicken-Derived Drugs; Translations: [EGG OR CHICKEN-DERIVED DRUGS] Propensity to adverse reactions to drug 11-24-19 19 [facility] (7 sources) Other (Review Comments!); Translations: [OTHER (REVIEW COMMENTS!)] Propensity to adverse reactions to drug 06-10-20 15 Itching, Hives [facility] (5 sources) Bee pollen Propensity to adverse reactions to drug 12-17-19 17 Itching [facility] (5 sources) Lactose (non-medical use) Propensity to adverse reactions to drug 10-24-19 19 Vomiting [facility] (5 sources) Mushroom Propensity to adverse reactions to drug 10-24-19 19 Nausea [facility] (5 sources) Pollen Propensity to adverse reactions to drug 06-10-20 15 Itching [facility] (5 sources) Sulfasalazine Propensity to adverse reactions to drug 12-17-19 17 [facility] (5 sources) Sulfonamides (Antibiotic) Propensity to adverse reactions to drug 06-10-20 15 [facility] (2 sources) Beatriz albicans allergenic extract Drug Allergy 01-14-20 13 [facility] (2 sources) corn extract Drug Allergy 01-14-20 13 [facility] (2 sources) egg extract Drug Allergy 02-20-20 16 sick to stomach [facility] (2 sources) Sulfonamides (Antibiotic) Drug allergy (disorder) 01-14-20 13 [facility] (2 sources) Wheat preparation Drug Allergy 01-14-20 13 [facility] (2 sources) Misc-Food; Translations: [Misc-Food] Food allergy (disorder) 01-14-20 13 [facility] (2 sources) Egg Propensity to adverse reactions Unknown [facility] Other (2 sources) Sulfacetamide / Sulfur Drug Allergy pt doesn't remember [facility] Other (2 sources) Sulfonamides (Antibiotic); Translations: [Sulfa (Sulfonamide Antibiotics)] Allergy to substance 01-18-20 Vomiting [facility] (1 source) egg extract Drug Allergy 01-18-20 [facility] NEGATED: Highlighted row has been ruled out!Unclassified (3 sources) Other Propensity to adverse reactions 06-10-20 15 Itching [facility] Medications Current Medications Medication Drug Class(es) Dates Sig (Normalized) Sig (Original) Acetaminophen / HYDROcodone (2 sources) Opioid Agonist Start: 02-18-2021 End: 02-18-2021 HYDROcodone-acetam inophen (NORCO) 5-325 MG per tablet 1 tablet Start: 02-18-2021 hydrocodone-ac etaminophen (NORCO) tablet 5-325 mg (STARTER PACK) acetaminophen 325 mg / oxyCODONE hydrochloride 5 mg oral tablet (5 sources) Opioid Agonist take 1 tablet by mouth every six hours as needed for pain oxyCODONE-acetaminophen (PERCOCET) 5-325 MG per tablet Take 1 tablet by mouth every 6 hours as needed for Pain . 0 Active [id number] actuat albuterol 0.09 mg/actuat metered dose inhaler (13 sources) beta2-Adrenerg ic Agonist Start: 021 take 2 puff(s) by mouth every four hours as needed albuterol (PROVENTIL HFA) INHALATION HFA inhaler (VENTOLIN,PROAIR,PROVENTIL) 90mcg TAKE 2 PUFFS BY MOUTH EVERY 4 HOURS NEEDED 0 01/23/2021 Active Start: 12-16-2020 albuterol (PRO VENTIL) nebulizer solution 2.5 mg Start: 09-08-2018 End: 01-18-2020 Albuterol Sulfate Discontinu ed 2 INH INHALATION Q4H 8 September 08, 2018 1:00am January 18, 2020 7:47pm administer with spacer take 2 puff(s) by in halation every six hours as needed for wheezing albuterol sulfate HFA (VENTOLIN HFA) 108 (90 Base) MCG/ACT inhaler Inhale 2 puffs into the lungs every 6 hours as needed for Wheezing 0 Active take 2 puff(s) by in halation every six hours as needed for wheezing albuterol sulfate HFA (VENTOLIN HFA) 108 (90 Base) MCG/ACT inhaler Inhale 2 puffs into the lungs every 6 hours as needed for Wheezing 0 Active albuterol sulfate HFA 108 (90 Base) MCG/ACT inhaler 2 puff (1 source) Start: 10-19-2020 albuterol sulfate HFA 108 (90 Base) MCG/ACT inhaler 2 puff amoxicillin 875 mg / clavulanate 125 mg oral tablet (1 source) Penicillin-class Antibacterial Start: 11-02-2021 End: 11-16-2021 take 1 tablet by mouth twice daily at mealtime amoxicillin-cla vulanate (Augmentin) 875-125 MG per tablet Take 1 Tablet by mouth 2 times daily for 14 days. With Food 28 Tablet 0 11/02/2021 11/16/2021 Active aspirin 325 mg oral tablet (2 sources) Platelet Aggregation Inhibitor, Nonsteroidal Anti-inflammatory Drug take 1 tablet by mouth every twenty-four hours Aspirin 325 MG 1 tablet Orally Once a day Active 60 actuat budesonide 0.16 mg/actuat / formoterol fumarate 0.0045 mg/actuat metered dose inhaler (12 sources) Corticosteroid, beta2-Adrenergic Agonist Start: 01-23-2021 take 2 puff(s) by mouth twice daily Symbicort 160-4.5 MCG/ACT inhaler TAKE 2 PUFFS BY MOUTH TWICE A DAY 0 01/23/2021 Active Start: 01-18-2020 take 1 puff(s) by in halation twice daily Budesonide-Formoterol Active 2 PUFF INHALATION Twice daily January 18, 2020 12:00am take 2 puff(s) by in halation twice daily budesonide-formoterol (SYMBICORT) 160-4.5 MCG/ACT AERO Inhale 2 puffs into the lungs 2 times daily 0 Active cephalexin 500 mg oral tablet (1 source) Cephalosporin Antibacterial Start: 01-18-2020 take 500 mg by mouth twice daily Cephalexin Active 500 MG PO Twice daily 10 January 18, 2020 12:00am cetirizine hydrochloride 10 mg oral tablet (14 sources) Histamine-1 Receptor Antagonist Start: 08-24-2021 End: 08-09-2023 take 1 tablet by mouth once daily cetirizine (ZyrTEC) 10 MG tablet TAKE 1 TABLET BY MOUTH EVERY DAY 90 Tablet 3 08/09/2022 08/09/2023 Active ZyrTEC Allergy A ctive take 1 tablet by mouth once dixon y cetirizine (ZYRTEC) 10 MG tablet Take 10 mg by mouth daily 0 Active cholecalciferol 0.05 mg oral capsule (2 sources) Vitamin D take 1 capsule by mouth every twenty-four hours Vitamin D3 50 MCG (2000 UT) 1 capsule Orally Once a day Active [id number] 0.3 ml EPINEPHrine 1 mg/ml auto-injector (8 sources) alpha-Adrenergic Agonist, beta-Adrenergic Agonist, Catecholamine Start: 019 EPINEPHrine (EPIPEN 2-AL) 0.3 MG/0.3ML injection Use as instructed for allergic reaction 2 Each 3 02/20/2019 Active EpiPen Active EPINEPHrine HCl, Anaphylaxis, (EPIPEN IM) (5 sources) EPINEPHrine HCl, Anaphylaxis, (EPIPEN IM) Inject 1 Dose into the muscle As needed for emergencies 0 Active Norethindrone-E.Estradio l-Iron (3 sources) Estrogen Start: 03-20-2017 take 1 tablet by mouth once daily Norethindrone-E.Estradi ol-Iron Active 1 TAB PO Daily March 20, 2017 12:00am Lo Loestrin Fe N ot-Taking/PRN Lo Loestrin Fe N ot-Taking ibuprofen 800 mg oral tablet (5 sources) Nonsteroidal Anti-inflammatory Drug take 1 tablet by mouth every six hours as needed for pain ibuprofen (ADVIL;MOTRIN) 800 MG tablet Take 800 mg by mouth every 6 hours as needed for Pain 0 Active loratadine 10 mg oral tablet (2 sources) Start : 03-20 End: 10-19 take 1 tablet by mouth once daily Loratadine Active 1 TAB PO Daily March 20, 2017 12:00am methylPREDNISolone 4 mg oral tablet (2 sources) Corticosteroid Start : 10-20 End: 10-26 methylPREDNISolone (MEDROL, AL,) 4 MG tablet Take by mouth. 1 kit 0 10/20/2020 10/26/2020 Active montelukast 10 mg oral tablet (16 sources) Leukotriene Receptor Antagonist Start : 03-20 End: 04-18 take 1 tablet by mouth once daily montelukast (SINGULAIR) 10 MG tablet TAKE 1 TABLET BY MOUTH EVERY DAY 90 Tablet 3 04/18/2023 Active Singulair Active mupirocin 0.02 mg/mg topical ointment (6 sources) RNA Synthetase Inhibitor Antibacterial Start: 06-23-2021 mupirocin (BACTROBAN) 2 % ointment Apply topically 2 times daily. 15 g 2 06/23/2021 Active Niacin / Simvastatin (2 sources) HMG-CoA Reductase Inhibitor, Nicotinic Acid Simcor Active Norethin-Eth Estrad-Fe Biphas (LO LOESTRIN FE PO) (5 sources) take 1 tablet by mouth once daily Norethin-Eth Estrad-Fe Biphas (LO LOESTRIN FE PO) Take 1 tablet by mouth daily 0 Active ondansetron 4 mg disintegrating oral tablet (3 sources) Serotonin-3 Receptor Antagonist Start: 10-26-2020 End: 10-31-2020 take 1 tablet by mouth every eight hours as needed for nausea ondansetron (ZOFRAN ODT) 4 MG disintegrating tablet Take 1 tablet by mouth every 8 hours as needed for Nausea or Vomiting 20 tablet 0 10/26/2020 10/31/2020 Active Start: 10-25-2020 End: 10-25-2020 ondansetron (ZOFRAN) injecti on 4 mg Start: 03-20-2017 End: 03-25-2017 take 1 tablet by mouth every eight hours Ondansetron (Zofran Odt) 4 mg tablet,disintegrating Discontinued 4 MG PO Q8H 15 5 March 20, 2017 12:00am March 25, 2017 12:02am pantoprazole 40 mg oral granules (4 sources) Proton Pump Inhibitor Start: 10-26-2020 take 1 dose by mouth once daily before breakfast pantoprazole sodium (PROTONIX) 40 MG PACK packet Take 1 packet by mouth every morning (before breakfast) 30 each 3 10/26/2020 Active phenazopyridine hydrochloride 200 mg oral tablet (1 source) Start: 01-18-2020 take 200 mg by mouth three times daily at mealtime Phenazopyridine Active 200 MG PO Three times daily 10 January 18, 2020 12:00am administer with a full glass of water after each meal predniSONE 10 mg oral tablet (4 sources) Start: 11-02-2021 End: 01-31-2022 predniSONE (DELTASONE) 10 MG tablet 6 tabs QAM x 4 days. Then, each successive morning, take 5 then 4 then 3 then 2 then 1 tablet for a total of 9 days of treatment. 39 Tablet 0 11/02/2021 01/31/2022 Active Start: 12-16-2020 End: 12-16-2020 predniSONE (DELTASONE) table t 60 mg Start: 10-19-2020 End: 10-19-2020 predniSONE (DELTASONE) table t 60 mg Start: 09-08-2018 End: 01-18-2020 take 50 mg by mouth once daily at mealtime Prednisone Discontinued 50 MG PO Daily 11 11September 08, 2018 1:00am January 18, 2020 7:47pm administer with food or milk Completed/Discontinued Medications Medication Drug Class(es) Dates Sig (Normalized) Sig (Original) acetaminophen 325 mg oral tablet (1 source) Start: 02-18-2021 End: 02-18-2021 acetaminophen (TYLENOL) tablet 650 mg albuterol 0.833 mg/ml / ipratropium bromide 0.167 mg/ml inhalation solution (1 source) Anticholinergic, beta2-Adrenergic Agonist Start: 12-16-2020 End: 12-16-2020 ipratropium-albutero l (DUONEB) nebulizer solution 1 ampule Start: 12-16-2020 End: 12-16-2020 ipratropium-albuterol (DUONE B) nebulizer solution 1 ampule aluminum & magnesium hydroxide-simethicone (MAALOX) 30 mL, lidocaine viscous hcl (XYLOCAINE) 5 mL (GI COCKTAIL) (1 source) Start: 10-26-2020 End: 10-26-2020 aluminum & magnesium hydroxide-simethicone (MAALOX) 30 mL, lidocaine viscous hcl (XYLOCAINE) 5 mL (GI COCKTAIL) amoxicillin 250 mg oral capsule (3 sources) Penicillin-class Antibacterial Start: 02-18-2021 End: 02-18-2021 amoxicillin (AMOXIL) capsule 500 mg Start: 02-18-2021 End: 02-25-2021 take 1 capsule by mouth three times daily amoxicillin (AMOXIL) 500 MG capsule Take 1 capsule by mouth 3 times daily for 7 days 21 capsule 0 02/18/2021 02/25/2021 Active End: 10-19-2020 take 1 capsule by mouth three times daily amoxicillin (AMOXIL) 500 MG capsule Take 500 mg by mouth 3 times daily 0 10/19/2020 Discontinued (Therapy completed) atropine sulfate 0.025 mg / diphenoxylate hydrochloride 2.5 mg oral tablet (1 source) Anticholinergic, Cholinergic Muscarinic Antagonist, Antidiarrheal Start: 03-20-2017 End: 07-20-2017 take 8 tablets by mouth once Diphenoxylate-Atropine (Lomotil) 2.5-0.025 mg tablet Discontinued 2 TAB PO .q 8 March 20, 2017 12:00am July 20, 2017 8:02am dicyclomine hydrochloride 10 mg oral capsule (1 source) Anticholinergic Start: 03-20-2017 End: 07-20-2017 take 2 capsules by mouth every eight hours Dicyclomine (Bentyl) 10 mg capsule Discontinued 20 MG PO Q8H March 20, 2017 6:56pm July 20, 2017 8:02am hyoscyamine sulfate 0.125 mg sublingual tablet (1 source) Start: 08-17-2016 End: 10-19-2020 hyoscyamine (LEVSIN/SL) 125 MCG sublingual tablet Dissolve one or two under tongue every four hours as needed for abdominal pain or cramps. 60 tablet 6 08/17/2016 10/19/2020 Discontinued (LIST CLEANUP) ofloxacin 3 mg/ml otic solution (1 source) Quinolone Antimicrobial Start: 08-23-2018 End: 08-30-2018 Ofloxacin Discontinued 5 DROPS EAR-LEFT Daily 5 August 23, 2018 1:00am August 30, 2018 1:01am omeprazole 40 mg delayed release oral capsule (1 source) Proton Pump Inhibitor Start: 05-19-2017 End: 07-20-2017 Omeprazole Discontinued 40 MG PO May 19, 2017 1:00am July 20, 2017 8:02am oseltamivir 75 mg oral capsule (1 source) Neuraminidase Inhibitor Start: 09-08-2018 End: 01-18-2020 take 1 capsule by mouth every twelve hours Oseltamivir (Tamiflu) 75 mg capsule Discontinued 75 MG PO Q12H 10 September 08, 2018 1:00am January 18, 2020 7:47pm 50 ml sodium chloride 9 mg/ml injection (2 sources) Start: 10-26-2020 End: 10-26-2020 0.9 % sodium chloride bolus Start: 10-25-2020 End: 10-26-2020 0.9 % sodium chloride infusi on TB Test (2 sources) Start: 08-21-2019 TB Test Aug 0.1 mL Problems Active Problems Problem Classification Problem Date Documented Da te Episodic/Chronic Abdominal pain (3 sources) Left upper quadrant pain; Translations: [Left upper quadrant pain] 03-20-2017 Episodic Acute and chronic tonsillitis (11 sources) Chronic adenotonsillitis; Translations: [Chronic tonsillitis and adenoiditis] Onset: 06-18-2015 06-18-2015 Chronic Asthma (6 sources) Exacerbation of intermittent asthma; Translations: [Mild intermittent asthma with (acute) exacerbation] Onset: 02-28-2022 Chronic Conditions associated with dizziness or vertigo (1 source) Dizziness and giddiness; Translations: [Dizziness and giddiness] Onset: 04-04-2023 Episodic Delirium, dementia, and amnestic and other cognitive disorders (1 source) Postconcussion syndrome; Translations: [Postconcussional syndrome] 07-20-2017 Chronic Gastritis and duodenitis (2 sources) Gastritis; Translations: [Unspecified chronic gastritis without bleeding] Chronic Gastrointestinal hemorrhage (2 sources) Rectal hemorrhage; Translations: [Hemorrhage of anus and rectum] Episodic Immunizations and screening for infectious disease (1 source) Contact with or exposure to other viral diseases; Translations: [Close exposure to COVID-19 virus] Episodic Nausea and vomiting (3 sources) Nausea, vomiting and diarrhea; Translations: [Nausea with vomiting, unspecified] Episodic Other disorders of stomach and duodenum (2 sources) Indigestion; Translations: [Functional dyspepsia] Episodic Other gastrointestinal disorders (13 sources) Irritable bowel syndrome with diarrhea; Translations: [Irritable bowel syndrome with diarrhea] Onset: 08-17-2016 08-17-2016 Chronic Other gastrointestinal disorders (2 sources) Constipation; Translations: [Constipation, unspecified] Episodic Other gastrointestinal disorders (2 sources) Gagging; Translations: [Other specified symptoms and signs involving the digestive system and abdomen] Episodic Other gastrointestinal disorders (3 sources) Diarrhea; Translations: [Diarrhea, unspecified] 03-20-2017 Episodic Other gastrointestinal disorders (2 sources) Urgent desire for stool; Translations: [Fecal urgency] Episodic Other gastrointestinal disorders (2 sources) Passing flatus; Translations: [Flatulence] Episodic Other gastrointestinal disorders (2 sources) Heartburn; Translations: [Heartburn] Episodic Other gastrointestinal disorders (2 sources) Abdominal distension symptom; Translations: [Other specified symptoms and signs involving the digestive system and abdomen] Episodic Other nervous system disorders (2 sources) Carpal tunnel syndrome of right wrist; Translations: [Carpal tunnel syndrome, right upper limb] Chronic Other nervous system disorders (1 source) Postoperative pain ; Translations: [Other acute postprocedural pain] Episodic Other non-traumatic joint disorders (1 source) Pain in right knee Episodic Other non-traumatic joint disorders (1 source) Effusion, right knee Episodic Other nutritional; endocrine; and metabolic disorders (6 sources) Obesity; Translations: [Obesity, unspecified] Onset: 10-08-2013 02-20-2019 Chronic Other nutritional; endocrine; and metabolic disorders (2 sources) Body mass index 40+ - severely obese; Translations: [Body mass index (BMI) 40.0-44.9, adult] Chronic Other upper respiratory disease (6 sources) Allergic rhinitis; Translations: [Allergic rhinitis, unspecified] Onset: 02-20-2019 02-20-2019 Chronic Other upper respiratory disease (2 sources) Polyp of nasal cavity and/or nasal sinus; Translations: [Nasal polyp, unspecified] Episodic Other upper respiratory disease (1 source) Nasal polyp, unspecified; Translations: [NASAL POLYP UNSPECIFIED] Onset: 11-24-2022 Episodic Other upper respiratory disease (1 source) Polypoid sinus degeneration; Translations: [POLYPOID SINUS DEGENERATION] Onset: 11-24-2022 Episodic Other upper respiratory infections (19 sources) Chronic sinusitis; Translations: [Chronic sinusitis, unspecified] Onset: 10-31-2018 Chronic Unclassified (2 sources) COUGH, UNSPECIFIED; Translations: [COUGH, UNSPECIFIED] Onset: 02-28-2022 Unclassified (1 source) CONTACT W/AND (SUSP) EXPOS COVID-19; Translations: [CONTACT W/AND (SUSP) EXPOS COVID-19] Onset: 02-28-2022 Unclassified (1 source) Pain in right knee; Translations: [Pain in right knee] Onset: 04-21-2023 Urinary tract infections (1 source) Urinary tract infectious disease; Translations: [Urinary tract infection, site not specified] 01-18-2020 Episodic Viral infection (2 sources) Other specified viral infection; Translations: [Disease caused by 2019-nCoV] Episodic Past or Other Problems Problem Classification Problem Date Documented Da te Episodic/Chronic Allergic reactions (7 sources) Allergy to food; Translations: [Allergy to other foods] Onset: 02-20-2019 02-20-2019 Episodic Other aftercare (1 source) Other [facility] (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; Translations: [OTH [facility] CURRENT DRUG THERAPY] Onset: 02-28-2022 Episodic Other ear and sense organ disorders (1 source) Impacted cerumen, right ear; Translations: [IMPACTED CERUMEN RIGHT EAR] Onset: 02-28-2022 Episodic Other nervous system disorders (7 sources) Loss of sense of smell; Translations: [Anosmia] Onset: 09-09-2020 Episodic Other upper respiratory disease (11 sources) Deviated nasal septum; Translations: [Deviated nasal septum] Onset: 06-18-2015 06-18-2015 Episodic Other upper respiratory disease (11 sources) Hypertrophy of nasal turbinates; Translations: [Hypertrophy of nasal turbinates] Onset: 06-18-2015 06-18-2015 Episodic Other upper respiratory disease (6 sources) Nasal obstruction; Translations: [Other specified disorders of nose and nasal sinuses] Onset: 10-31-2018 10-31-2018 Episodic Other upper respiratory disease (6 sources) Andrea bullosa; Translations: [Other specified disorders of nose and nasal sinuses] Onset: 10-31-2018 10-31-2018 Episodic Other upper respiratory disease (1 source) Other specified disorders of nose and nasal sinuses; Translations: [OTH SPEC D/O NOSE NASAL SINUSES] Onset: 02-28-2022 Episodic Other upper respiratory infections (1 source) Acute upper respiratory infection, unspecified; Translations: [ACUTE UP RESPIRATORY INFECTION UNS] Onset: 02-28-2022 Episodic Unclassified (1 source) COUGH, UNSPECIFIED; Translations: [COUGH, UNSPECIFIED] Onset: 02-25-2022 Results Test Name Value Interpretation Reference Range Facility MR KNEE RIGHT WO IV CONTRAST on 07-11-2023 MR KNEE RIGHT WO IV CONTRAST EXAMINATION: MR KNEE RIGHT WO IV CONTRAST HISTORY: right knee internal derangement twisting injury 3 to 4 months ago. Lateral, anterior, and posterior knee pain. Denies prior right knee surgery. Difficulty holding still. TECHNIQUE: Routine non-contrast MRI of the knee, RIGHT COMPARISON: Radiographs 07/17/2018. RESULT: Overall moderate limitations from motion. Also limitation secondary to inability to use dedicated knee coil. Within these limits: MENISCI: Medial Meniscus: Grossly intact within limits of motion. Lateral Meniscus: Grossly intact within limits of motion. LIGAMENTS: ACL, PCL, MCL, and LCL complex grossly intact within limits of motion. CARTILAGE: Not well assessed secondary to motion. No distinct full-thickness chondral defect. TENDONS: Distal quadriceps intact. Patellar tendon intact. Popliteus intact. BONES AND MARROW: No evidence of fracture or bone marrow replacing process. MUSCLES: Muscle bulk and signal intensity are normal. JOINT FLUID AND SYNOVIUM: No joint effusion. No synovitis. No Laurent's cyst. OTHER: Subcutaneous edema/bursitis anteriorly. IMPRESSION: Menisci and ligaments appear grossly intact. ELECTRONICALLY SIGNED BY: Chago Gordon MD Normal Not Available XR knee RT 4V*on 04-21-2023 XR knee RT 4V* [facility] [address] [place] [address] [place] [address] XRay Report Signed Patient: Magdalena Ennis MR#: [id number] : 1995 Acct:[id number] Age/Sex: 28 / F ADM Date: 04/21/23 Loc: XDUCLY Room: Type: [facility] Attending Dr: Maribel MO Copies to: CHELY Miranda Ordering Provider: CHELY Miranda Date of Service: 04/21/23 XR/XR knee RT 4V*: RIGHT KNEE PAIN RIGHT KNEE - 4 views COMPARISON: None CLINICAL DATA: Patient felt a pop at the right knee yesterday and the day before and has had pain at the knee since. AP, lateral and both oblique views were obtained. These no acute fracture or dislocation. There is minor squaring off of the articular margins at the posterior patella. There is a trace amount joint fluid. No focal soft tissue abnormalities are seen. XR/XR knee RT 4V* IMPRESSION: NO ACUTE BONY FINDINGS. Impression dictated by: Essie Rdz M.D.04/21/2023 12:14 PM Dictation Location: [place] [address] Transcribed By: [facility] 04/21/23 1214 Dictated By: Essie Rdz MD 04/21/233 Signed By: 04/21/23 1214 [facility] XR knee RT 4V* [facility] [employer] Other XR knee RT 4V* [facility] Main [facility] [employer] Other XR knee RT 4V* [address] [place] [address] [employer] Other XR knee RT 4V* [place] [address] No rt [employer] Other XR knee RT 4V* XRay Report [employer] Other XR knee RT 4V* Signed [employer] Other XR knee RT 4V* Patient: Apryl Ennis MR#: [id number] [employer] Other XR knee RT 4V* 8702 [employer] Other XR knee RT 4V* : 1995 Acct:[id number] [employer] Other XR knee RT 4V* Age/Sex: 28 / F ADM Date: 04/21/23 [employer] Other XR knee RT 4V* Loc: XDUCLY Room: Ty pe: REG CLI [employer] Other XR knee RT 4V* Attending Dr: Maribel MO [employer] Other XR knee RT 4V* Copies to: CHELY Miranda [employer] Other XR knee RT 4V* Ordering Provider: CHELY Salas [employer] Other XR knee RT 4V* Date of Service: 04/21/23 [employer] Other XR knee RT 4V* [id number]) XR/XR knee RT 4V*: RIGHT KNEE PAIN [employer] Other XR knee RT 4V* RIGHT KNEE - 4 views [employer] Other XR knee RT 4V* COMPARISON: None [facility] [employer] Other XR knee RT 4V* CLINICAL DATA: Jose nt felt a pop at the right knee yesterday and the day before and has had pain at [employer] Other XR knee RT 4V* the knee since. [employer] Other XR knee RT 4V* AP, lateral and both oblique views were obtained. These no acute fracture or dislocation. There is [employer] Other XR knee RT 4V* minor squaring off o f the articular margins at the posterior patella. There is a trace amount joint [employer] Other XR knee RT 4V* fluid. No focal soft tissue abnormalities are seen. [employer] Other XR knee RT 4V* X R/XR knee RT 4V* [employer] Other XR knee RT 4V* IMPRESSION: [facility] [employer] Other XR knee RT 4V* NO ACUTE BONY FINDINGS. [employer] Other XR knee RT 4V* Impression dictated by: Essie Rdz M.D.04/21/2023 12:14 PM [employer] Other XR knee RT 4V* Dictation Location: [address] [employer] Other XR knee RT 4V* Transcribed By: CHRISSIE 04/21/23 1214 [employer] Other XR knee RT 4V* Dictated By: Essie Rdz MD 04/21/23 2121 [employer] Other XR knee RT 4V* Signed By: [employer] Other XR knee RT 4V* 04/21/23 1219 [employer] Other CBC with Diffon 04-04-2023 Abs. Basophil 0.04 k/uL Normal 0.00-0.20 [facility] Comment on above: Performed By: #### SALLY Hayes CDP, CP, TROPI #### [address] [place] [address] Pipeline Technician: Michael Ordonez MD Abs.Imm.Granulocyte <0.03 Normal 0.00-0.30 [facility] Comment on above: Performed By: #### SALLY Hayes, JUAN LUIS, CP, TROPI #### [address] [place] [address] Pipeline Technician: Michael Ordonez MD Abs.Neutrophil (Seg) 5.05 k/uL Normal 1.50-8.10 [facility] Comment on above: Performed By: #### SALLY Hayes CDP, CP, TROPI #### [address] [place], [place] [id number] Pipeline Technician: Michael Ordonez MD Basophils/100 WBC (Bld) 1 % Normal 0-2 [facility] Comment on above: Performed By: #### SALLY Hayes CDP, CP, TROPI #### [address] [place] [address] Pipeline Technician: Michael Ordonez MD Eosinophils (Bld) [#/Vol] 0.32 10*3/uL Normal 0.00-0.44 [facility] Comment on above: Performed By: #### M G, DIME, CDP, CP, TROPI #### [address] [place], [place] [id number] Pipeline Technician: Michael Ordonez MD Eosinophils/100 WBC (Bld) 4 % Normal 1-4 [facility] Comment on above: Performed By: #### M G, DIME, CDP, CP, TROPI #### [address] [place], [facility] Pipeline Technician: Michael Ordonez MD Erythrocyte distribution width (RBC) [Ratio] 14.3 % Normal 11.8-14.4 [facility] Comment on above: Performed By: #### M G, DIME, CDP, CP, TROPI #### [address] [place], [facility] Pipeline Technician: Michael Ordonez MD Hematocrit (Bld) [Volume fraction] 36.1 % Low 36.3-47.1 [facility] Comment on above: Performed By: #### M G, DIME, CDP, CP, TROPI #### [address] [place], [facility] Pipeline Technician: Michael Ordonez MD Hemoglobin (Bld) [Mass/Vol] 11.6 g/dL Low 11.9-15.1 [facility] Comment on above: Performed By: #### M G, DIME, CDP, CP, TROPI #### [address] [place], [place] [id number] Pipeline Technician: Michael Ordonez MD Immature granulocytes/100 WBC (Bld) 0 % Normal 0 [facility] Comment on above: Performed By: #### M G, DIME, CDP, CP, TROPI #### [address] [place] [address] Pipeline Technician: Michael Ordonez MD Lymphocytes (Bld) [#/Vol] 1.94 10*3/uL Normal 1.10-3.70 [facility] Comment on above: Performed By: #### M G, DIME, CDP, CP, TROPI #### [facility] [address] [place], [facility] Pipeline Technician: Michael Ordonez MD Lymphocytes/100 WBC (Bld) 25 % Normal 24-43 [facility] Comment on above: Performed By: #### M G, DIME, CDP, CP, TROPI #### [facility] [address] [place], [facility] Pipeline Technician: Michael Ordonez MD MCH (RBC) [Entitic mass] 27.6 pg Normal 25.2-33.5 [facility] Comment on above: Performed By: #### M G, DIME, CDP, CP, TROPI #### [address] [place], [place] [address] Pipeline Technician: Michael Ordonez MD MCHC (RBC) [Mass/Vol] 32.1 g/dL Normal 28.4-34.8 [facility] Comment on above: Performed By: #### M G, DIME, CDP, CP, TROPI #### [address] [place], [facility] Pipeline Technician: Michael Ordonez MD MCV (RBC) [Entitic vol] 86.0 fL Normal 82.6-102.9 [facility] Comment on above: Performed By: #### M G, DIME, CDP, CP, TROPI #### [address] [place], [facility] Pipeline Technician: Michael Ordonez MD Monocytes (Bld) [#/Vol] 0.43 10*3/uL Normal 0.10-1.20 [facility] Comment on above: Performed By: #### M G, DIME, CDP, CP, TROPI #### [address] [place], [facility] Pipeline Technician: Michael Ordonez MD Monocytes/100 WBC (Bld) 6 % Normal 3-12 [facility] Comment on above: Performed By: #### M G, DIME, CDP, CP, TROPI #### [facility] [address] [place], [facility] Pipeline Technician: Michael Ordonez MD Neutrophil (Seg) 64 % Normal 36-65 [facility] Comment on above: Performed By: #### M G, DIME, CDP, CP, TROPI #### [address] [place], [facility] Pipeline Technician: Michael Ordonez MD NRBC Automated 0.0 per 100 WBC Normal 0.0 [facility] Comment on above: Performed By: #### M G, DIME, CDP, CP, TROPI #### [address] [place], [place] [address] Pipeline Technician: Michael Ordonez MD Platelet mean volume (Bld) [Entitic vol] 9.7 fL Normal 8.1-13.5 [facility] Comment on above: Performed By: #### M G, DIME, CDP, CP, TROPI #### [address] [place], [place] [address] Pipeline Technician: Michael Ordonez MD Platelets (Bld) [#/Vol] 333 10*3/uL Normal 138-453 [facility] Comment on above: Performed By: #### M G, DIME, CDP, CP, TROPI #### [address] [place], [facility]83 Pipeline Technician: Michael Ordonez MD RBC (Bld) [#/Vol] 4.20 10*6/uL Normal 3.95-5.11 [facility] Comment on above: Performed By: #### M G, DIME, CDP, CP, TROPI #### [address] [place], [place] [id number] Pipeline Technician: Michael Ordonez MD WBC (Bld) [#/Vol] 7.8 10*3/uL Normal 3.5-11.3 [facility] Comment on above: Performed By: #### M G, DIME, CDP, CP, TROPI #### [facility] [address] [place], [place] [id number] Pipeline Technician: Michael Ordonez MD Comp Metabolic Profon 2022 Albumin [Mass/Vol] 4.3 g/dL Normal 3.5-5.2 [facility] Comment on above: Performed By: #### M G, DIME, CDP, CP, TROPI #### [facility] [address] [place], [place] [address] Pipeline Technician: Michael Ordonez MD Albumin/Glob Ratio 1.5 Normal 1.0-2.5 [facility] Comment on above: Performed By: #### M G, DIME, CDP, CP, TROPI #### [address] [place], [place] [address]83 Pipeline Technician: Michael Ordonez MD Alkaline Phos 80 U/L Normal 35-104 [facility] Comment on above: Performed By: #### M G, DIME, CDP, CP, TROPI #### [address] [place], [place] [id number] Pipeline Technician: Michael Ordonez MD ALT [Catalytic activity/Vol] 13 U/L Normal 5-33 [facility] Comment on above: Performed By: #### M G, DIME, CDP, CP, TROPI #### [facility] [address] [place], [place] [id number] Pipeline Technician: Michael Ordonez MD Anion gap [Moles/Vol] 9 mmol/L Normal 9-17 [facility] Comment on above: Performed By: #### M G, DIME, CDP, CP, TROPI #### [facility] [address] [place], [place] [id number] Pipeline Technician: Michael Ordonez MD AST [Catalytic activity/Vol] 12 U/L Normal <32 [facility] Comment on above: Performed By: #### M G, DIME, CDP, CP, TROPI #### [facility] [address] [place], [place] [address] Pipeline Technician: Michael Ordonez MD Bilirubin [Mass/Vol] 0.2 mg/dL Low 0.3-1.2 [facility] Comment on above: Performed By: #### M G, DIME, CDP, CP, TROPI #### [address] [place], [place] [address] Pipeline Technician: Michael Ordonez MD BUN/CRE Ratio 8 Low 9-20 [facility] Comment on above: Performed By: #### M G, DIME, CDP, CP, TROPI #### [facility] [address] [place] [address] Dr. [place], [place] [id number] Pipeline Technician: Michael Ordonez MD Calcium [Mass/Vol] 9.5 mg/dL Normal 8.6-10.4 [facility] Comment on above: Performed By: #### M G, DIME, CDP, CP, TROPI #### [facility] [address] [place] [address] Dr[address] [place], [place] [address]83 Pipeline Technician: Michael Ordonez MD Chloride [Moles/Vol] 103 mmol/L Normal 98-107 [facility] Comment on above: Performed By: #### M G, DIME, CDP, CP, TROPI #### [address] [place] [address] Pipeline Technician: Michael Ordonez MD CO2 [Moles/Vol] 26 mmol/L Normal 20-31 [facility] Comment on above: Performed By: #### M G, DIME, CDP, CP, TROPI #### [facility] [address] [place] [address] Pipeline Technician: Michael Ordonez MD Creatinine [Mass/Vol] 0.6 mg/dL Normal 0.5-0.9 [facility] Comment on above: Performed By: #### M G, DIME, CDP, CP, TROPI #### [facility] [address] [place] [address] Pipeline Technician: Michael Ordonez MD GFR/1.73 sq M.predicted among non-blacks MDRD (S/P/Bld) [Vol rate/Area] mL/min/{1.73_m2} Normal >60 [facility] Comment on above: Result Comment: These results are not intended for use in patients <18 years of age. eGFR results are calculated without a race factor using the 2020 CKD-EPI equation. Careful clinical correlation is recommended, particularly when comparing to results calculated using previous equations. The CKD-EPI equation is less accurate in patients with extremes of muscle mass, extra-renal metabolism of creatine, excessive creatine ingestion, or following therapy that affects renal tubular secretion. Performed By: #### M G, DIME, CDP, CP, TROPI #### [address] [place] [address] Pipeline Technician: Michael Ordonez MD Glucose [Mass/Vol] 96 mg/dL Normal 70-99 [facility] Comment on above: Performed By: #### M G, DIME, CDP, CP, TROPI #### [address] [place] [address] Pipeline Technician: Michael Ordonez MD Potassium [Moles/Vol] 4.4 mmol/L Normal 3.7-5.3 [facility] Comment on above: Performed By: #### M G, DIME, CDP, CP, TROPI #### [address] [place] [address] Pipeline Technician: Michael Ordonez MD Protein [Mass/Vol] 7.1 g/dL Normal 6.4-8.3 [facility] Comment on above: Performed By: #### M G, DIME, CDP, CP, TROPI #### [facility] [address] [place] [address] Pipeline Technician: Michael Ordonez MD Sodium [Moles/Vol] 138 mmol/L Normal 135-144 [facility] Comment on above: Performed By: #### M G, DIME, CDP, CP, TROPI #### [facility] [address] [place] [address] Pipeline Technician: Michael Ordonez MD Urea nitrogen [Mass/Vol] 5 mg/dL Low 6-20 [facility] Comment on above: Performed By: #### M G, DIME, CDP, CP, TROPI #### [facility] [address] [place] [address] Pipeline Technician: Michael Ordonez MD D-Dimer Teston 04-04-2023 D-Dimer Test 0.37 ug/mL FEU Normal 0.00-0.59 [facility] Comment on above: Result Comment: When combined with a low clinical probability, a D dimer value of <0.50 ug/mL FEU is considered negative for DVT and PE (negative predictive value of 98%, sensitivity of 97%). If this test is not being used to help rule out DVT and PE, then the following reference range should be utilized: 0.00 - 0.59 ug/mL FEU. The D-Dimer assay is intended for use as an aid in the diagnosis of venous thromboembolism (DVT and PE) and the results should be interpreted in conjunction with the patient's medical history, clinical presentation, and other findings. Elevated levels of D-dimer activity can be seen in any state of coagulation activation and is not recommended in patients with therapeutic dose anticoagulant therapy for >24 hours, fibrinolytic therapy within the previous 7 days, trauma or surgery within the previous 4 weeks, disseminated malignancies, aortic aneurysm, sepsis, severe infections, pneumonia, severe skin infections, liver cirrhosis, advanced age, coronary disease, diabetes, and . A very low percentage of patients with DVT may yield D-dimer results below the cutoff of 0.5 ug/mL FEU. This is known to be more prevalent in patients with distal DVT. Performed By: #### M SALLY Steel CDP, ASHOK, TROPI #### [facility] [address] [place] [address] Pipeline Technician: Michael Ordonez MD Magnesiumon 04-04-2023 Magnesium [Mass/Vol] 1.8 mg/dL Normal 1.6-2.6 [facility] Comment on above: Performed By: #### M SALLY Steel CDP, CP, TROPI #### [facility] [address] [place] [address] Pipeline Technician: Mihcael Ordonez MD [id number] 04-04-2023 SARS-CoV-2 (COVID-19) RNA MARY+probe Ql (Unsp spec) Not detected Normal NOTDET [facility] Comment on above: Result Comment: Rapid NAAT: The specimen is NEGATIVE for SARS-CoV-2, the novel coronavirus associated with COVID-19. The ID NOW COVID-19 assay is designed to detect the virus that causes COVID-19 in patients with signs and symptoms of infection who are suspected of COVID-19. An individual without symptoms of COVID-19 and who is not shedding SARS-CoV-2 virus would expect to have a negative (not detected) result in this assay. Negative results should be treated as presumptive and, if inconsistent with clinical signs and symptoms or necessary for patient management, should be tested with an alternative molecular assay. Negative results do not preclude SARS-CoV-2 infection and should not be used as the sole basis for patient management decisions. Fact sheet for Healthcare Providers: https://www.fda.gov/media/118682/download Fact sheet for Patients: https://www.fda.gov/media/905433/download Methodology: Isothermal Nucleic Acid Amplification Performed By: #### C OVRB #### [facility] [address] [place] [address] Pipeline Technician: Michael Ordonez MD Thyroid Stim. Horm.on 2022 Thyroid Stim. Horm. 0.88 uIU/mL Normal 0.30-5.00 [facility] Comment on above: Performed By: #### T SH #### [facility] [address] [place] [address] Pipeline Technician: Michael Ordonez MD Troponinon 04-04-2023 Troponin, High Sens 6 ng/L Normal 0-14 [facility] Comment on above: Result Comment: High Sensitivity Troponin values cannot be compared with other Troponin methodologies. Performed By: #### M G, DIME, CDP, CP, TROPI #### [facility] [address] [place] [address] Pipeline Technician: Michael Ordonez MD Urinalysis, Routineon 2022 Bilirubin, SemiQt,Ur Negative Normal NEG [facility] Comment on above: Performed By: #### U MICAO, UA #### [facility] [address] [place], [place] [id number] Pipeline Technician: Michael Ordonez MD Blood, Urine 3+ Abnormal NEG [facility] Comment on above: Performed By: #### U MICAO, UA #### [facility] [address] [place] [address] Pipeline Technician: Michael Ordonez MD Clarity (U) Clear Normal CLEAR [facility] Comment on above: Performed By: #### U MICAO, UA #### [facility] [address] [place] [address] Pipeline Technician: Michael Ordonez MD Color (U) Yellow Normal YEL [facility] Comment on above: Performed By: #### U MICAO, UA #### [facility] [address] [place] [address] Pipeline Technician: Michael Ordonez MD Glucose Ql (U) Negative Normal NEG [facility] Comment on above: Performed By: #### U MICAO, UA #### [facility] [address] [place], [place] [address] Pipeline Technician: Michael Ordonez MD Ketones Ql (U) Negative Normal NEG [facility] Comment on above: Performed By: #### U MICAO, UA #### [facility] [address] [place], [place] [phone] Pipeline Technician: Michael Ordonez MD Leukocyte esterase Test strip Ql (U) Negative Normal NEG [facility] Comment on above: Performed By: #### U MICAO, UA #### [facility] [address] [place] [address] Dr[place], [place] [id number] Pipeline Technician: Michael Ordonez MD Nitrite,Ur Negative Normal NEG [facility] Comment on above: Performed By: #### U MICAO, UA #### [facility] [address] [place] [address] Dr. [place], [facility] Pipeline Technician: Michael Ordonez MD PH,Ur 7.0 Normal 5.0-9.0 [facility] Comment on above: Performed By: #### U MICAO, UA #### [facility] [address] [place] [address] Dr[address] [place], [place] 6[address]83 Pipeline Technician: Michael Ordonez MD Protein Ql (U) Negative Normal NEG [facility] Comment on above: Performed By: #### U MICAO, UA #### [facility] [address] [place] [address] Dr. [place], [facility] Pipeline Technician: Michael Ordonez MD Spec. [place],Ur 1.010 Normal 1.010-1.02 0 [facility] Comment on above: Performed By: #### U MICAO, UA #### [facility] [address] [place], [place] [address] Pipeline Technician: Michael Ordonez MD Urobilinogen,Ur Normal Normal 0.0-1.0 [facility] Comment on above: Performed By: #### U MICAO, UA #### [facility] [address] [place] [address] Pipeline Technician: Michael Ordonez MD Urinalysis,Microon 3 Bacteria TRACE Abnormal NONE [facility] Comment on above: Performed By: #### U EMILIEO, UA #### [facility] [address] [place], [place] [address] Pipeline Technician: Michael Ordonez MD Epithelial cells LM Ql (Urine sed) 0 TO 2 Normal 0-25 [facility] Comment on above: Performed By: #### U EMILIEO, UA #### [facility] [address] [place], [place] [address] Pipeline Technician: Michael Ordonez MD Urine RBC's 5 TO 10 Normal 0-2 [facility] Comment on above: Performed By: #### U JAYDE UA #### [facility] [address] [place], [facility] Pipeline Technician: Michael Ordonez MD Urine WBC's None Normal 0-5 [facility] Comment on above: Performed By: #### U JAYDE UA #### [facility] [address] [place] [address] Pipeline Technician: Michael Ordonez MD XR CHEST PORTABLEon 04-04-20 23 XR CHEST PORTABLE EXAMINATION: ONE XRAY VIEW OF THE CHEST 04/04/2023 1:16 pm COMPARISON: None. HISTORY: ORDERING SYSTEM PROVIDED HISTORY: dizziness TECHNOLOGIST PROVIDED HISTORY: dizziness FINDINGS: Normal heart size and pulmonary vasculature. No focal consolidations, pleural effusions, or pneumothorax. IMPRESSION: No evidence of acute process. Interpreted by: Rudy Jacobo MD Signed by: Rudy Jacobo MD 04/04/23 Final result Normal [facility] CBC AUTO DIFFon 11-18-2022 BASO # 0.1 103/ul Normal 0.0-0.1 [facility] Comment on above: Performed By: #### C BC #### [facility] [address] [place] [address] Dr. Laura Duarte Basophils/100 WBC (Bld) 0.8 % Normal 0.2-2.0 [facility] Comment on above: Performed By: #### C BC #### [facility] [address] [place] [address] Dr. Laura Duarte EO # 1.0 103/ul Critically high 0.0-0.7 [facility] Comment on above: Performed By: #### C BC #### [facility] [address] [place] [address] Dr. Laura Duarte Eosinophils/100 WBC (Bld) 11.5 % Critically high 0.9-7.0 [facility] Comment on above: Performed By: #### C BC #### [facility] [address] [place] [address] Dr. Laura Duarte Erythrocyte distribution width (RBC) [Ratio] 13.2 % Normal 11.0-15.0 [facility] Comment on above: Performed By: #### C BC #### [facility] [address] [place] [address] Dr. Laura Duarte Hematocrit (Bld) [Volume fraction] 37.6 % Normal 36.0-48.0 [facility] Comment on above: Performed By: #### C BC #### [facility] [facility] [address] [place] [address] Dr. Laura Duarte Hemoglobin (Bld) [Mass/Vol] 12.3 g/dL Normal 12.0-16.0 [facility] Comment on above: Performed By: #### C BC #### [facility] [address] [place] [address] Dr. Laura Duarte IG # 0.02 10e3/ul Normal 0.00-0.03 [facility] Comment on above: Performed By: #### C BC #### [facility] [address] [place] [address] Dr. Laura Duarte IG % 0.2 % Normal 0.0-0.5 [facility] Comment on above: Performed By: #### C BC #### [facility] [address] [place] [address] Dr. Laura Duarte LYMPH # 2.7 103/ul Normal 1.2-3.8 [facility] Comment on above: Performed By: #### C BC #### [facility] [address] [place] [address] Dr. Laura Duarte Lymphocytes/100 WBC (Bld) 30.3 % Normal 20.5-60.0 [facility] Comment on above: Performed By: #### C BC #### [facility] [address] [place] [address] Dr. Laura Duarte MANUAL DIFF REQ NO Normal [facility] Comment on above: Performed By: #### C BC #### [facility] [address] [place] [address] Dr. Laura Duarte MCH (RBC) [Entitic mass] 27.9 pg Normal 26.7-34.0 [facility] Comment on above: Performed By: #### C BC #### [facility] [address] [place] [address] Dr. Laura Duarte MCHC (RBC) [Mass/Vol] 32.7 g/dL Normal 29.9-35.2 [facility] Comment on above: Performed By: #### C BC #### [facility] [address] [place] [address] Dr. Laura Duarte MCV (RBC) [Entitic vol] 85.3 fL Normal 81.0-99.0 [facility] Comment on above: Performed By: #### C BC #### [facility] [address] [place] [address] Dr. Laura Duarte MONO # 0.5 103/ul Normal 0.3-0.8 [facility] Comment on above: Performed By: #### C BC #### [facility] [address] [place] [address] Dr. Laura Duarte Monocytes/100 WBC (Bld) 5.0 % Normal 1.7-12.0 [facility] Comment on above: Performed By: #### C BC #### [facility] [address] [place] [address] Dr. Laura Duarte NEUT # 4.7 103/ul Normal 1.4-6.5 [facility] Comment on above: Performed By: #### C BC #### [facility] [address] [place] [address] Dr. Laura Duarte Neutrophils/100 WBC (Bld) 52.2 % Normal 43.0-75.0 [facility] Comment on above: Performed By: #### C BC #### [facility] [address] [place] [address] Dr. Laura Duarte Platelet mean volume (Bld) [Entitic vol] 9.9 fL Normal 9.5-13.5 [facility] Comment on above: Performed By: #### C BC #### [facility] [address] [place] [address] Dr. Laura Duarte PLT 363 103/ul Normal 150-450 [facility] Comment on above: Performed By: #### C BC #### [facility] [address] [place] [address] Dr. Laura Duarte RBC 4.41 106/ul Normal 4.20-5.40 [facility] Comment on above: Performed By: #### C BC #### [facility] [address] [place] [address] Dr. Laura Duarte WBC 9.0 103/ul Normal 4.0-11.0 [facility] Comment on above: Performed By: #### C BC #### [facility] [address] [place] [address] Dr. Laura Duarte PROF 14(COMP METB)on 023 Albumin [Mass/Vol] 3.7 g/dL Normal 3.4-5.0 [facility] Comment on above: Performed By: #### P TT, PT #### [facility] [address] [place] [address] Dr. Laura Duarte Albumin/Globulin [Mass ratio] 1.0 {ratio} Normal [facility] Comment on above: Performed By: #### P TT, PT #### [facility] [address] [place] [address] Dr. Laura Duarte ALP [Catalytic activity/Vol] 89 U/L Normal 46-116 [facility] Comment on above: Performed By: #### P TT, PT #### [facility] [address] [place] [address] Dr. Laura Duarte ALT [Catalytic activity/Vol] 22 U/L Normal 14-59 [facility] Comment on above: Performed By: #### P TT, PT #### [facility] [address] [place] [address] Dr. Laura Duarte Anion gap [Moles/Vol] 13.8 mmol/L Normal [facility] Comment on above: Performed By: #### P TT, PT #### [facility] [address] [place] [address] Dr. Laura Duarte AST [Catalytic activity/Vol] 13 U/L Critically low 15-37 [facility] Comment on above: Performed By: #### P TT, PT #### [facility] [address] [place] [address] Dr. Laura Duarte Bilirubin [Mass/Vol] 0.2 mg/dL Normal 0.2-1.0 [facility] Comment on above: Performed By: #### P TT, PT #### [facility] [address] [place] [address] Dr. Laura Duarte Calcium [Mass/Vol] 9.0 mg/dL Normal 8.5-10.1 [facility] Comment on above: Performed By: #### P TT, PT #### [facility] [address] [place] [address] Dr. Laura Duarte Chloride [Moles/Vol] 106 mmol/L Normal 98-107 [facility] Comment on above: Performed By: #### P TT, PT #### [facility] [address] [place] [address] Dr. Laura Duarte CO2 [Moles/Vol] 27.3 mmol/L Normal 21.0-32.0 [facility] Comment on above: Performed By: #### P TT, PT #### [facility] [address] [address] [address] Laura Duarte Creatinine [Mass/Vol] 0.77 mg/dL Normal 0.55-1.02 [facility] Comment on above: Performed By: #### P TT, PT #### [facility] [address] [place] [address] Dr. Laura Duarte EGFR-AF GREEK >60 Normal >=60 [facility] Comment on above: Performed By: #### P TT, PT #### [facility] [address] [address] [address] Laura Duarte EGFR-NON AF GREEK >60 Normal >=60 [facility] Comment on above: Performed By: #### P TT, PT #### [facility] [address] [address] [address] Laura Duarte Globulin (S) [Mass/Vol] 3.8 g/dL Normal [facility] Comment on above: Performed By: #### P TT, PT #### [facility] [address] [place] [address] Dr. Laura uDarte Glucose [Mass/Vol] 95 mg/dL Normal 74-106 [facility] Comment on above: Performed By: #### P TT, PT #### [facility] [address] [address] [address] Laura Duarte Potassium [Moles/Vol] 4.1 mmol/L Normal 3.5-5.1 [facility] Comment on above: Performed By: #### P TT, PT #### [facility] [address] [address] [address] Laura Duarte Protein [Mass/Vol] 7.5 g/dL Normal 6.4-8.2 [facility] Comment on above: Performed By: #### P TT, PT #### [facility] [address] [address] [address] Laura Duarte Sodium [Moles/Vol] 143 mmol/L Normal 136-145 [facility] Comment on above: Performed By: #### P TT, PT #### [facility] [address] [address] [address] Laura Duarte Urea nitrogen [Mass/Vol] 6.0 mg/dL Critically low 7.0-18.0 [facility] Comment on above: Performed By: #### P TT, PT #### [facility] [address] [place] [address] Dr. Laura Duarte Urea nitrogen/Creatinine [Mass ratio] 7.8 mg/mg Normal [facility] Comment on above: Performed By: #### P TT, PT #### [facility] [address] [place] [address] Dr. Laura Duarte PROTIMEon 11-18-2022 INR Coag (PPP) [Relative time] {INR} Normal [facility] Comment on above: Performed By: #### P TT, PT #### [facility] [address] [place] [address] Dr. Laura Duarte INR GUIDELINES SEE BELOW Normal [facility] Comment on above: Result Comment: [place] RED INR: 2.0 - 3.0 CONDITIONS NOT LISTED BELOW 2.5 - 3.5 FOR PROSTHETIC HEART VALVE REPLACEMENT 2.5 - 3.5 RECURRENT THROMBOSIS Performed By: #### P TT, PT #### [facility] [address] [place] [address] Dr. Laura Duarte PT Coag (PPP) [Time] 9.8 s Normal 9.0-11.6 [facility] Comment on above: Performed By: #### P TT, PT #### [facility] [address] [place] [address] Dr. Laura Duarte PTTon 11-18-2022 aPTT Coag (Bld) [Time] 34.4 s Normal 22.3-36.2 [facility] Comment on above: Performed By: #### P TT, PT #### [facility] [address] [place] [address] Dr. Laura Duarte XR CHEST 2 Von 11-18-2022 XR CHEST 2 V EXAM: XR CHEST 2 V HISTORY: Uncomplicated asthma COMPARISON: None. TECHNIQUE: PA and lateral views of the chest. FINDINGS: The cardiomediastinal silhouette is normal. No focal consolidation is identified. There is no pneumothorax. No pleural effusion is noted. The osseous structures are intact. IMPRESSION: No acute cardiopulmonary process. Electronically authenticated by: LEONARD CERVANTES Date: 2022-11-18 12:35 Normal [facility] Telephone Encounteron 2021 Floor [employer] Authentication Interface Message Text Last visit with Ent-Otol (Michael Wiseman) was 11/02/2021. No future visit scheduled. Requested Prescriptions Pending Prescriptions Disp Refills montelukast (SINGULAIR) 10 MG tablet [Pharmacy Med Name: MONTELUKAST SOD 10 MG TABLET] 90 Tablet 3 Sig: TAKE 1 TABLET BY MOUTH EVERY DAY No PCP on file No PCP on file Normal [facility] CBC AUTO DIFFon 03-30-2022 BASO # 0.1 103/ul Normal 0.0-0.1 [facility] Comment on above: Performed By: #### P TT, PT #### [facility] [address] [place] [address] Dr. Laura Duarte Basophils/100 WBC (Bld) 0.6 % Normal 0.2-2.0 [facility] Comment on above: Performed By: #### P TT, PT #### [facility] [address] [place] [address] Dr. Laura Duarte EO # 0.7 103/ul Normal 0.0-0.7 [facility] Comment on above: Performed By: #### P TT, PT #### [facility] [address] [place] [address] Dr. Laura Duarte Eosinophils/100 WBC (Bld) 7.8 % Critically high 0.9-7.0 [facility] Comment on above: Performed By: #### P TT, PT #### [facility] [address] [place] [address] Dr. Laura Duarte Erythrocyte distribution width (RBC) [Ratio] 14.0 % Normal 11.0-15.0 [facility] Comment on above: Performed By: #### P TT, PT #### [facility] [address] [place] [address] Dr. Laura Duarte Hematocrit (Bld) [Volume fraction] 37.8 % Normal 36.0-48.0 [facility] Comment on above: Performed By: #### P TT, PT #### [facility] [address] [address] [address] Laura Duarte Hemoglobin (Bld) [Mass/Vol] 12.2 g/dL Normal 12.0-16.0 [facility] Comment on above: Performed By: #### P TT, PT #### [facility] [address] [address] [address] Laura Duarte IG # 0.02 10e3/ul Normal 0.00-0.03 [facility] Comment on above: Performed By: #### P TT, PT #### [facility] [address] [address] [address] Laura Duarte IG % 0.2 % Normal 0.0-0.5 [facility] Comment on above: Performed By: #### P TT, PT #### [facility] [address] [place] [address] Dr. Laura Duarte LYMPH # 2.4 103/ul Normal 1.2-3.8 [facility] Comment on above: Performed By: #### P TT, PT #### [facility] [address] [place] [address] Dr. Laura Duarte Lymphocytes/100 WBC (Bld) 26.2 % Normal 20.5-60.0 [facility] Comment on above: Performed By: #### P TT, PT #### [facility] [address] [place] [address] Dr. Laura Duarte MANUAL DIFF REQ NO Normal [facility] Comment on above: Performed By: #### P TT, PT #### [facility] [address] [place] [address] Dr. Laura Duarte MCH (RBC) [Entitic mass] 27.6 pg Normal 26.7-34.0 [facility] Comment on above: Performed By: #### P TT, PT #### [facility] [address] [place] [address] Dr. Laura Duarte MCHC (RBC) [Mass/Vol] 32.3 g/dL Normal 29.9-35.2 [facility] Comment on above: Performed By: #### P TT, PT #### [facility] [address] [place] [address] Dr. Laura Duarte MCV (RBC) [Entitic vol] 85.5 fL Normal 81.0-99.0 [facility] Comment on above: Performed By: #### P TT, PT #### [facility] [address] [place] [address] Dr. Laura Duarte MONO # 0.6 103/ul Normal 0.3-0.8 [facility] Comment on above: Performed By: #### P TT, PT #### [facility] [address] [place] [address] Dr. Laura Duarte Monocytes/100 WBC (Bld) 6.5 % Normal 1.7-12.0 [facility] Comment on above: Performed By: #### P TT, PT #### [facility] [address] [place] [address] Dr. Laura Duarte NEUT # 5.4 103/ul Normal 1.4-6.5 [facility] Comment on above: Performed By: #### P TT, PT #### [facility] [address] [place] [address] Dr. Laura Duarte Neutrophils/100 WBC (Bld) 58.7 % Normal 43.0-75.0 [facility] Comment on above: Performed By: #### P TT, PT #### [facility] [address] [place] [address] Dr. Laura Duarte Platelet mean volume (Bld) [Entitic vol] 11.6 fL Normal 9.5-13.5 [facility] Comment on above: Performed By: #### P TT, PT #### [facility] [address] [place] [address] Dr. Laura Duarte PLT 321 103/ul Normal 150-450 [facility] Comment on above: Performed By: #### P TT, PT #### [facility] [address] [place] [address] Dr. Laura Duarte RBC 4.42 106/ul Normal 4.20-5.40 [facility] Comment on above: Performed By: #### P TT, PT #### [facility] [address] [address] [address] Laura Duarte WBC 9.3 103/ul Normal 4.0-11.0 [facility] Comment on above: Performed By: #### P TT, PT #### [facility] [address] [address] [address] Laura Duarte GLYCOHEMOGLOBIN A1Con 2021 ADA RECOMMENDATION SEE BELOW Normal [facility] Comment on above: Result Comment: ADA RECOMMENDED LIMIT 4.0 - 6.0 ADA THERAPEUTIC TARGET < 7.0 ACTION SUGGESTED > 7.0 Performed By: #### A 1C #### [facility] [address] [address] [address] Laura Duarte Glucose [Mass/Vol] 111 mg/dL Normal [facility] Comment on above: Performed By: #### A 1C #### [facility] [address] [place] [address] Dr. Laura Duarte HbA1c (Bld) [Mass fraction] 5.5 % Normal 4.5-6.2 [facility] Comment on above: Performed By: #### A 1C #### [facility] [address] [place] [address] Dr. Laura Duarte LIPID PROFILEon 03-30-2022 CHOL-HDL RATIO NORM SEE BELOW Normal [facility] Comment on above: Result Comment: 3.3 - 4.4 LOW RISK 4.4 - 7.1 AVERAGE RISK 7.1 - 11.0 MODERATE RISK >11.0 HIGH RISK Performed By: #### T SH, LIVER, LIPID, BMP #### [facility] [address] [place] [address] Dr. Laura Duarte Cholesterol [Mass/Vol] 174 mg/dL Normal <=200 [facility] Comment on above: Performed By: #### T SH, LIVER, LIPID, BMP #### [facility] [address] [address] [address] Laura Duarte Cholesterol in HDL [Mass/Vol] 49 mg/dL Normal 40-60 [facility] Comment on above: Performed By: #### T SH, LIVER, LIPID, BMP #### [facility] [address] [address] [address] Laura Duarte Cholesterol in LDL [Mass/Vol] 113.2 mg/dL Normal [facility] Comment on above: Performed By: #### T SH, LIVER, LIPID, BMP #### [facility] [address] [address] [address] Laura Duarte Cholesterol.total/Ch olesterol in HDL [Mass ratio] 3.6 {ratio} Normal [facility] Comment on above: Performed By: #### T SH, LIVER, LIPID, BMP #### [facility] [address] [address] [address] Laura Duarte HDL NORMAL > or = 60 mg/dl - LO W CARDIOVASCULAR RISK <40 mg/dl - HIGH CARDIOVASCULAR RISK Normal [facility] Comment on above: Performed By: #### T SH, LIVER, LIPID, BMP #### [facility] [address] [address] [address] Laura Duarte LDL CALC NORMAL SEE BELOW Normal [facility] Comment on above: Result Comment: <100 mg/dl OPTIMAL 100 - 129 mg/dl NEAR OR ABOVE OPTIMAL 130 - 159 mg/dl BORDERLINE HIGH 160 - 189 mg/dl HIGH >190 mg/dl VERY HIGH Performed By: #### T SH, LIVER, LIPID, BMP #### [facility] [address] [address] [address] Laura Duarte Triglyceride [Mass/Vol] 59 mg/dL Normal <=150 [facility] Comment on above: Performed By: #### T SH, LIVER, LIPID, BMP #### [facility] [address] [place] [address] Dr. Laura Duarte VLDL CALC 11.8 mg/dL Normal [facility] Comment on above: Performed By: #### T SH, LIVER, LIPID, BMP #### [facility] [address] [address] [address] Laura Duarte LIVER PROFILEon 03-30-2022 Albumin [Mass/Vol] 3.6 g/dL Normal 3.4-5.0 [facility] Comment on above: Performed By: #### T SH, LIVER, LIPID, BMP #### [facility] [address] [address] [address] Laura Duarte Albumin/Globulin [Mass ratio] 1.0 {ratio} Normal [facility] Comment on above: Performed By: #### T SH, LIVER, LIPID, BMP #### [facility] [address] [address] [address] Larua Duarte ALP [Catalytic activity/Vol] 76 U/L Normal 46-116 [facility] Comment on above: Performed By: #### T SH, LIVER, LIPID, BMP #### [facility] [address] [address] [address] Laura Duarte ALT [Catalytic activity/Vol] 19 U/L Normal 14-59 [facility] Comment on above: Performed By: #### T SH, LIVER, LIPID, BMP #### [facility] [address] [place] [address] Dr. Laura Duarte AST [Catalytic activity/Vol] 11 U/L Critically low 15-37 [facility] Comment on above: Performed By: #### T SH, LIVER, LIPID, BMP #### [facility] [address] [address] [address] Laura Duarte BILI, CONJUGATED 0.1 mg/dL Normal 0.0-0.2 [facility] Comment on above: Performed By: #### T SH, LIVER, LIPID, BMP #### [facility] [address] [address] [address] Laura Duarte Bilirubin [Mass/Vol] 0.3 mg/dL Normal 0.2-1.0 [facility] Comment on above: Performed By: #### T SH, LIVER, LIPID, BMP #### [facility] [address] [address] [address] Laura Duarte Globulin (S) [Mass/Vol] 3.5 g/dL Normal [facility] Comment on above: Performed By: #### T SH, LIVER, LIPID, BMP #### [facility] [address] [address] [address] Laura Duarte Protein [Mass/Vol] 7.1 g/dL Normal 6.4-8.2 [facility] Comment on above: Performed By: #### T SH, LIVER, LIPID, BMP #### [facility] [address] [address] [address] Laura Duarte PROF CHEM 8 (BAS METB)on Anion gap [Moles/Vol] 12.4 mmol/L Normal [facility] Comment on above: Performed By: #### T SH, LIVER, LIPID, BMP #### [facility] [address] [address] [address] Laura Duarte Calcium [Mass/Vol] 9.1 mg/dL Normal 8.5-10.1 [facility] Comment on above: Performed By: #### T SH, LIVER, LIPID, BMP #### [facility] [address] [place] [address] Dr. Laura Duarte Chloride [Moles/Vol] 106 mmol/L Normal 98-107 [facility] Comment on above: Performed By: #### T SH, LIVER, LIPID, BMP #### [facility] [address] [place] [address] Dr. Laura Duarte CO2 [Moles/Vol] 24.5 mmol/L Normal 21.0-32.0 [facility] Comment on above: Performed By: #### T SH, LIVER, LIPID, BMP #### [facility] [address] [place] [address] Dr. Laura Duarte Creatinine [Mass/Vol] 0.70 mg/dL Normal 0.55-1.02 [facility] Comment on above: Performed By: #### T SH, LIVER, LIPID, BMP #### [facility] [address] [place] [address] Dr. Laura Duarte EGFR-AF GREEK >60 Normal >=60 [facility] Comment on above: Performed By: #### T SH, LIVER, LIPID, BMP #### [facility] [address] [place] [address] Dr. Laura Duarte EGFR-NON AF GREEK >60 Normal >=60 [facility] Comment on above: Performed By: #### T SH, LIVER, LIPID, BMP #### [facility] [address] [address] [address] Laura Duarte Glucose [Mass/Vol] 94 mg/dL Normal 74-106 [facility] Comment on above: Performed By: #### T SH, LIVER, LIPID, BMP #### [facility] [address] [address] [address] Laura Duarte Potassium [Moles/Vol] 3.9 mmol/L Normal 3.5-5.1 [facility] Comment on above: Performed By: #### T SH, LIVER, LIPID, BMP #### [facility] [address] [place] [address] Dr. Laura Duarte Sodium [Moles/Vol] 139 mmol/L Normal 136-145 [facility] Comment on above: Performed By: #### T SH, LIVER, LIPID, BMP #### [facility] [address] [place] [address] Dr. Laura Duarte Urea nitrogen [Mass/Vol] 7.0 mg/dL Normal 7.0-18.0 [facility] Comment on above: Performed By: #### T , LIVER, LIPID, BMP #### [facility] [address] [place] [address] Dr. Laura Duarte Urea nitrogen/Creatinine [Mass ratio] 10.0 mg/mg Normal [facility] Comment on above: Performed By: #### T SH, LIVER, LIPID, BMP #### [facility] [address] [place] [address] Dr. Laura Duarte TSHon 03-30-2022 TSH 1.039 uIU/mL Normal 0.358-3.74 0 [facility] Comment on above: Performed By: #### T , LIVER, LIPID, BMP #### [facility] [address] [place] [address] Dr. Laura Duarte [facility] SARS-CoV-2 (COVID-19) RNA MARY+probe Ql (Unsp spec) Not detected Normal NOT DETECTED [facility] Comment on above: Result Comment: When diagnostic testing is negative, the possibility of a false negative should be considered in the context of a patient's recent exposures and the presence of clinical signs and symptoms consistent with SARS-CoV-2. This test is not yet approved or cleared by the [place] FDA. When there are no FDA-approved or cleared tests available, and other criteria are met, FDA can make tests available under an emergency access mechanism called an Emergency Use Authorization (EUA). The EUA for this test is supported by the [employer] Clerk of Health and Human Service's declaration that circumstances exist to justify the emergency use of in vitro diagnostics for the detection and/or diagnosis of the virus that causes COVID-19. This EUA will remain in effect for the duration of the COVID-19 declaration justifying emergency of IVDs, unless it is terminated or revoked by the FDA (after which the test may no longer be used). Performed By: #### P TT, PT #### [facility] [address] [address] [address] Laura Duarte XR CHEST 1 Von 02-25-2022 XR CHEST 1 V STUDY: Chest exam TECHNIQUE:XR CHEST 1 V COMPARISON: None available HISTORY: SHORTNESS OF BREATH FINDINGS: The lungs are well expanded. No pneumothorax. No pleural effusion. No consolidation. Cardiomediastinal silhouette is normal in size and position. No acute osseous abnormality. IMPRESSION: No acute cardiopulmonary findings. Electronically authenticated by: MATEUS BUTCHER Date: 2022-02-24 23:55 Normal [facility] Progress Noteson 11-02-2021 Floor [employer] Authentication Interface Message Text CC: Nasal obstruction HPI: Magdalena Ennis is a 26 year old female who is being seen today for follow up. She had FESS for nasal polyps on 02-16-2021. She reports nasal obstruction on both sides of her nose. She is getting lots of yellow, sticky nasal secretions out both sides of her nose and down the back of her throat with occasional blood specks. She has recently started snoring. No taste or smell. She is not using Rhinocort nasal spray due to glaucoma concerns but she was also having difficulty getting her refills filled at her local pharmacy. She stopped sinus irrigations 2 months ago because it was causing left ear pressure and pain. She was not getting any debris out with irrigations. She felt she was able to clear out nose effectively just blowing. She continues taking her allergy medication and saline mist for nasal dryness. There are no significant/pertinent interval changes in history and there are no other ENT complaints/issues except as herein described. Past Medical History: Diagnosis Date * Acid reflux * Heartburn * IBS (irritable bowel syndrome) * Multiple allergies eggs,yeast,wheat,mushrooms, lactaid,milk,corn,cats,dogs ,pollen,mold * Obesity * Snoring Past Surgical History: Procedure Laterality Date * COLONOSCOPY * ESOPHAGOGASTRODUODENOSCOPY X2 * FUNCTIONAL ENDOSCOPIC SINUS SURGERY Bilateral 12/07/2018 Procedure: FUNCTIONAL ENDOSCOPIC SINUS SURGERY PER LOCALIZATION, SEPTOPLASTY (Bilateral maxillary antrostomies with removal of tissue, bilateral anterior ethmoidectomies, removal andrea bullosa, bilateral submucous resection and therapeutic outfracture of inferior turbinates); Surgeon: Michael Wiseman MD; Location: [facility]; Service: Otolaryngology * FUNCTIONAL ENDOSCOPIC SINUS SURGERY Bilateral 02/16/2021 Procedure: FUNCTIONAL ENDOSCOPIC SINUS SURGERY PER LOCALIZATION; Surgeon: Michael Wiseman MD; Location: [facility]; Service: Otolaryngology * MYRINGOTOMY WITH PRESSURE EQUALIZING TUBES age 3 * nasal turbinate surgery X 2 * TONSILLECTOMY, ADENOIDECTOMY age 20 * WISDOM TEETH Current Outpatient Medications on File Prior to Visit Medication Sig Dispense Refill * cetirizine (ZyrTEC) 10 MG tablet TAKE 1 TABLET BY MOUTH EVERY DAY 90 Tablet 3 * mupirocin (BACTROBAN) 2 % ointment Apply topically 2 times daily. 15 g 2 * montelukast (SINGULAIR) 10 MG tablet Take 1 Tablet by mouth daily. 90 Tablet 3 * albuterol (PROVENTIL HFA) INHALATION HFA inhaler (VENTOLIN,PROAIR,PROVENTIL) 90mcg TAKE 2 PUFFS BY MOUTH EVERY 4 HOURS NEEDED * Symbicort 160-4.5 MCG/ACT inhaler TAKE 2 PUFFS BY MOUTH TWICE A DAY * EPINEPHrine (EPIPEN 2-AL) 0.3 MG/0.3ML injection Use as instructed for allergic reaction 2 Each 3 No current facility-administered medications on file prior to visit. Allergies Allergen Reactions * Bee Pollen Itching * Egg Or Chicken-Derived Drugs ALLERGIC TO EGGS * Lactose Vomiting * Mushroom Extract Complex Nausea * Pollen Extract Itching * Wheat Bran diarrhea * Rowlett Oil Other reaction(s): Nausea And Vomiting * Rowlett-Related Products Nausea * Other (Review Comments!) Itching and Hives Pt states she had allergy testing done and the test showed bakers yeast allergy. Other reaction(s): Vomiting Cats and dogs Other reaction(s): Nausea And Vomiting * Sulfa Antibiotics Other reaction(s): Nausea And Vomiting * Sulfasalazine Other reaction(s): Nausea And Vomiting Family History Problem Relation Age of Onset * Other (autoimmune disorder, EOE) Mother SOCIAL HISTORY Social History Tobacco Use * Smoking status: Never Smoker * Smokeless tobacco: Never Used Substance Use Topics * Alcohol use: Yes Comment: OCC * Drug use: No PHYSICAL EXAM BP 141/96 Pulse 99 Resp 16 ########################### ########################### ################## PROCEDURE NOTE Because of an inability to get an optimal / adequate view otherwise, the fiberoptic scope was passed into the nares; the nasal cavity, nasopharynx, and if applicable, any opened sinuses were examined. Exam was normal except as otherwise indicated below. Significant development of polyps bilaterally with thick, yellow, tenacious secretions. ########################### ########################### ################## Encounter Diagnoses Name Primary? * Chronic pansinusitis Yes * Anosmia * Multiple nasal polyps Discussion/Recommendations: 60 capsules of budesonide (0.5 mg/capsule), Dissolve 2 capsules sinus rinse bottle along with the saline, and to irrigate the left and right nasal cavity with one-half of the contents of the nasal rinse once daily Prednisone + Augmentin Really needs treatment in conjunction with allergy/immunology Reassess within two months Michael Wiseman MD, FACS Documentation: Mode: In Person Time-Based Billing Justifications: Reviewing chart other clinical notes Patient visit (Including obtainin (more content not included)... Normal [facility] COVID-19, RapidOrdered By: Sonu Srinivasan on 02-13-2021 SARS-CoV-2 (COVID-19) RNA MARY+probe Ql (Unsp spec) Not detected Not Detected [facility] Phone: Comment on above: Rapid NAAT: The specimen is NEGATIVE for SARS-CoV-2, the novel coronavirus associated with COVID-19. The ID NOW COVID-19 assay is designed to detect the virus that causes COVID-19 in patients with signs and symptoms of infection who are suspected of COVID-19. An individual without symptoms of COVID-19 and who is not shedding SARS-CoV-2 virus would expect to have a negative (not detected) result in this assay. Negative results should be treated as presumptive and, if inconsistent with clinical signs and symptoms or necessary for patient management, should be tested with an alternative molecular assay. Negative results do not preclude SARS-CoV-2 infection and should not be used as the sole basis for patient management decisions. Fact sheet for Healthcare Providers: https://www.fda.gov/media/444400/download Fact sheet for Patients: https://www.fda.gov/media/177850/download Methodology: Isothermal Nucleic Acid Amplification Specimen Description .NASOPHARYNGEAL SWAB [place] Phone: [employer] Work Phone: CBC Auto DifferentialOrdered By: Avinash Kee on 10-25-2020 Absolute Eos # <0.03 [facility] Work Phone: Absolute Immature Granulocyte 0.04 [employer] Work Phone: Absolute Lymph # 2.18 [facility] Work Phone: Absolute [place] # 0.75 [facility] Work Phone: Basophils (Bld) [#/Vol] 10*3/uL [facility] Phone: Basophils/100 WBC (Bld) 0 % 0 - 2 % [facility] Phone: Differential Type NOT REPORTED [facility] Phone: Eosinophils/100 WBC (Bld) 0 % Low 1 - 4 % [facility] Phone: Hematocrit (Bld) [Volume fraction] 43.1 % 36.3 - 47.1 % [facility] Phone: Hemoglobin.gastroint estinal spec 1 Ql (Stl) 13.9 g/dL 11.9 - 15.1 g/dL [facility] Phone: Immature granulocytes/100 WBC (Bld) 1 % High 0 [facility] Phone: Interpretation and review of laboratory results Abnormal [facility] Phone: Lymphocytes/100 WBC (Bld) 29 % 24 - 43 % [facility] Phone: MCH (RBC) [Entitic mass] 27.4 pg 25.2 - 33.5 pg [facility] Phone: MCHC (RBC) [Mass/Vol] 32.3 g/dL 28.4 - 34.8 g/dL [facility] Phone: MCV (RBC) [Entitic vol] 84.8 fL 82.6 - 102.9 fL [facility] Phone: Monocytes/100 WBC (Bld) 10 % 3 - 12 % [facility] Phone: NRBC Automated 0.0 0.0 per 100 WBC [facility] Phone: Platelet distribution width (Bld) [Ratio] 13.3 % 11.8 - 14.4 % [facility] Phone: Platelet Estimate NOT REPORTED [facility] Phone: Platelet mean volume (Bld) [Entitic vol] 9.7 fL 8.1 - 13.5 fL [facility] Phone: Platelets (Bld) [#/Vol] 282 10*3/uL [facility] Phone: RBC (Bld) [#/Vol] 5.08 10*6/uL 3.95 - 5.11 m/uL [employer] Work Phone: RBC (Bld) [#/Vol] NOT REPORTED [employer] Work Phone: Segmented neutrophils/100 WBC (Bld) 60 % 36 - 65 % [employer] Work Phone: Segs Absolute 4.53 [employer] Work Phone: WBC (Bld) [#/Vol] 7.5 10*3/uL [employer] Work Phone: WBC (Bld) [#/Vol] NOT REPORTED [employer] Work Phone: Comprehensive Metabolic Pane l w/ Reflex to MGOrdered By: Avinash Kee on 10-25-2020 Albumin [Mass/Vol] 3.9 g/dL 3.5 - 5.2 g/dL [facility] Phone: Albumin/Globulin [Mass ratio] 1.2 {ratio} [facility] Phone: ALP (Bld) [Catalytic activity/Vol] 78 U/L 35 - 104 U/L [facility] Phone: ALT [Catalytic activity/Vol] 34 U/L High 5 - 33 U/L [facility] Phone: Anion gap [Moles/Vol] 13 mmol/L 9 - 17 mmol/L [facility] Phone: AST [Catalytic activity/Vol] 35 U/L High <32 [facility] Phone: Bilirubin [Mass/Vol] 0.23 mg/dL Low 0.3 - 1 .2 mg/dL [facility] Phone: Calcium [Mass/Vol] 9.2 mg/dL 8.6 - 10. 4 mg/dL [facility] Phone: Chloride [Moles/Vol] 99 mmol/L 98 - 10 7 mmol/L [facility] Phone: CO2 [Moles/Vol] 24 mmol/L 20 - 31 mmol/L [facility] Phone: Creatinine [Mass/Vol] 0.73 mg/dL 0.50 - 0.90 mg/dL [facility] Phone: Free PSA/Total PSA [Mass fraction] 7.1 g/dL 6.4 - 8.3 g/dL [facility] Phone: GFR >60 >60 mL/min [employer] ([employer]) Phone: GFR Non- >60 >60 mL/min [facility] Phone: Glucose [Mass/Vol] 119 mg/dL High 70 - 99 mg/dL [facility] Phone: Interpretation and review of laboratory results Abnormal [facility] Phone: Potassium [Moles/Vol] 3.3 mmol/L Low 3.7 - 5.3 mmol/L [facility] Phone: Sodium [Moles/Vol] 136 mmol/L 135 - 144 mmol/L [facility] Phone: Urea nitrogen (BldV) [Mass/Vol] 11 mg/dL 6 - 20 mg/dL [facility] Phone: Urea nitrogen/Creatinine (Bld) [Mass ratio] 15 [facility] Phone: Laboratory - Chemistry and C hemistry - challengeOrdered By: Avinash Kee on 10-25-2020 GFR/1.73 sq M.predicted MDRD (S/P/Bld) [Vol rate/Area] [facility] Phone: Comment on above: Average GFR for 20-2 9 years old: 116 mL/min/1.73sq m Chronic Kidney Disease: <60 mL/min/1.73sq m Kidney failure: <15 mL/min/1.73sq m eGFR calculated using average adult body mass. Additional eGFR calculator available at: http://www.Schoolfy/multiple_crcl_2012.htm Stage 1: Some kidney damage normal GFR Stage 2: Mild kidney damage GFR 60-89 Stage 3: Moderate kidney damage GFR 30-59 Stage 4: Severe kidney damage GFR 15-29 Stage 5: Severe kidney damage GFR <15 ESRD - chronic treatment by dialysis or transplant COVID-19, Rapidon 10-20-2020 Interpretation and review of laboratory results Abnormal [facility] Phone: SARS-CoV-2, Rapid DETECTED Abnormal Not Detected [facility] Phone: Comment on above: Rapid NAAT: The specimen is POSITIVE for SARS-Cov-2, the novel coronavirus associated with COVID-19. This test has been authorized by the FDA under an Emergency Use Authorization (EUA) for use by authorized laboratories. The ID NOW COVID-19 assay is designed to detect the virus that causes COVID-19 in patients with signs and symptoms of infection who are suspected of COVID-19. An individual without symptoms of COVID-19 and who is not shedding SARS-CoV-2 virus would expect to have a negative (not detected) result in this assay. Fact sheet for Healthcare Providers: https://www.fda.gov/media/766990/download Fact sheet for Patients: https://www.fda.gov/media/097149/download Methodology: Isothermal Nucleic Acid Amplification Results reported to the appropriate Health Department Specimen Description .NASOPHARYNGEAL SWAB [facility] Phone: XR CHEST PORTABLEon 10-20-19 21 No acute intrathorac ic pathology. [facility] Phone: EXAMINATION: ONE XRA Y VIEW OF THE CHEST 10/19/2020 11:23 pm COMPARISON: 06/10/2015 HISTORY: ORDERING SYSTEM PROVIDED HISTORY: shortness of breath TECHNOLOGIST PROVIDED HISTORY: shortness of breath FINDINGS: The cardiomediastinal silhouette and hilar contours are normal. The lungs are clear with no focal consolidation, pleural effusion or pneumothorax. The overlying soft tissue and osseous structures appear unremarkable. [facility] Phone: [facility]oyd, [facility] Incoming R adiant Results From [facility] - 10/19/2020 11:48 PM EDT EXAMINATION: ONE XRAY VIEW OF THE CHEST 10/19/2020 11:23 pm COMPARISON: 06/10/2015 HISTORY: ORDERING SYSTEM PROVIDED HISTORY: shortness of breath TECHNOLOGIST PROVIDED HISTORY: shortness of breath FINDINGS: The cardiomediastinal silhouette and hilar contours are normal. The lungs are clear with no focal consolidation, pleural effusion or pneumothorax. The overlying soft tissue and osseous structures appear unremarkable. IMPRESSION: No acute intrathoracic pathology. [facility] Phone: Vital Signs Date Time Vital Sign Value Performing Clinician Facility 04-21-2023 10:10-0400 Body height 171.45 cm Maribelaziza Flanagan Other [employer] Other 04-21-2023 10:10-0400 Body mass index (BMI) [Ratio] 46.29 kg/m2 Maribel Masha Other [facility] Other 04-21-2023 10:10-0400 Body temperature 97.2 [degF] Maribel Masha Other [facility] Other 04-21-2023 10:10-0400 Body weight 136.08 kg Maribel Masha Other [facility] Other 04-21-2023 10:10-0400 Diastolic blood pressure 88 mm[Hg] Maribel Masha Other [facility] Other 04-21-2023 10:10-0400 Respiratory rate 17 /min Maribel Flanagan Other [facility] Other 04-21-2023 10:10-0400 SaO2% (BldA) [Mass fraction] 98 % Maribel Flanagan Other [facility] Other 04-21-2023 10:10-0400 Systolic blood pressure 156 mm[Hg] Maribel Flanagan Other [facility] Other 11-02-2021 14:15-0400 Diastolic blood pressure 96 mm[Hg] Michael Wiseman MD Work Phone: [employer] 11-02-2021 14:15-0400 Heart rate 99 /min Michael Wiseman MD Work Phone: [employer] 11-02-2021 14:15-0400 Systolic blood pressure 141 mm[Hg] Michael Wiseman MD Work Phone: [employer] 11-02-2021 14:13-0400 Respiratory rate 16 /min Michael Wiseman MD Work Phone: [employer] 02-18-2021 20:25-0400 Body temperature 97.2 [degF] Enrique Srinivasan MD Work Phone: [employer] Work Phone: 02-18-2021 20:25-0400 Diastolic blood pressure 84 mm[Hg] Enrique Srinivasan MD Work Phone: [employer] Work Phone: 02-18-2021 20:25-0400 Heart rate 102 /min Enrique Srinivasan MD Work Phone: [employer] Work Phone: 02-18-2021 20:25-0400 Respiratory rate 16 /min Enrique Srinivasan MD Work Phone: [employer] Work Phone: 02-18-2021 20:25-0400 SaO2% (BldA) [Mass fraction] 96 % Enrique Srinivasan MD Work Phone: [employer] Work Phone: 02-18-2021 20:25-0400 Systolic blood pressure 128 mm[Hg] Enrique Srinivasan MD Work Phone: [employer] Work Phone: 02-13-2021 22:45-0400 Diastolic blood pressure 87 mm[Hg] Enrique Srinivasan MD Work Phone: [employer] Work Phone: 02-13-2021 22:45-0400 Systolic blood pressure 186 mm[Hg] Enrique Srinivasan MD Work Phone: [employer] Work Phone: 02-13-2021 21:55-0400 Body height 172.7 cm Enrique Srinivasan MD Work Phone: [employer] Work Phone: 02-13-2021 21:55-0400 Body mass index (BMI) [Ratio] 45.61 kg/m2 Enrique Srinivasan MD Work Phone: [employer] Work Phone: 02-13-2021 21:55-0400 Body weight 136.08 kg Enrique Srinivasan MD Work Phone: [employer] Work Phone: 02-13-2021 21:55-0400 Heart rate 103 /min Enrique Srinivasan MD Work Phone: [employer] Work Phone: 02-13-2021 21:55-0400 Respiratory rate 18 /min Enrique Srinivasan MD Work Phone: [employer] Work Phone: 02-13-2021 21:55-0400 SaO2% (BldA) [Mass fraction] 98 % Enrique Srinivasan MD Work Phone: [employer] Work Phone: 12-16-2020 23:20-0400 Diastolic blood pressure 89 mm[Hg] Adi Andes DO Work Phone: [employer] Work Phone: 12-16-2020 23:20-0400 SaO2% (BldA) [Mass fraction] 95 % Adi Andes DO Work Phone: [employer] Work Phone: 12-16-2020 23:20-0400 Systolic blood pressure 163 mm[Hg] Adi Andes DO Work Phone: [employer] Work Phone: 12-16-2020 22:25-0400 Body mass index (BMI) [Ratio] 46.98 kg/m2 Adi Andes DO Work Phone: [employer] Work Phone: 12-16-2020 22:25-0400 Body temperature 97.3 [degF] Adi Andes DO Work Phone: [employer] Work Phone: 12-16-2020 22:25-0400 Body weight 140.16 kg Adi Andes DO Work Phone: [employer] Work Phone: 12-16-2020 22:25-0400 Heart rate 101 /min Adi Andes DO Work Phone: [employer] Work Phone: 10-26-2020 00:30-0400 SaO2% (BldA) [Mass fraction] 97 % Avinash Kee MD Work Phone: [employer] Work Phone: 10-26-2020 00:00-0400 Diastolic blood pressure 56 mm[Hg] Avinash Kee MD Work Phone: [employer] Work Phone: 3 00:00-0400 Systolic blood pressure 145 mm[Hg] Avinash Kee MD Work Phone: [employer] Work Phone: 10-25-2020 22:11-0400 Body temperature 97.2 [degF] Avinash Kee MD Work Phone: [employer] Work Phone: 10-25-2020 22:11-0400 Heart rate 101 /min Avinash Kee MD Work Phone: [employer] Work Phone: 10-25-2020 22:11-0400 Respiratory rate 17 /min Avinash Kee MD Work Phone: [employer] Work Phone: 10-20-2020 00:40-0400 Body Temperature 97.5 [degF] [email or web address] Work Phone: 10-20-2020 00:40-0400 BP Diastolic 90 mm[Hg] [email or web address] Work Phone: 10-20-2020 00:40-0400 BP Systolic 103 mm[Hg] [email or web address] Work Phone: 10-20-2020 00:40-0400 Pulse (Heart Rate) 103 /min [employer] Phone: 10-20-2020 00:40-0400 Pulse Oximetry 95 % [email or web address] Work Phone: 10-20-2020 00:40-0400 Respiratory Rate 22 /min [email or web address] Work Phone: 10-19-2020 23:06-0400 BMI (Body Mass Index) 42.57 kg/m2 [employer] Phone: 10-19-2020 23:06-0400 Body weight 127.01 kg [employer] Phone: Encounters Encounter Date Encounter Type Care Provider Facility Start: 07-18-2023 End: 07-18-2023 ambulatory HANY ELLISON Not Available Start: 07-11-2023 End: 07-12-2023 ambulatory MARYANA AMADOR Not Available Start: 07-04-2023 End: 07-04-2023 ambulatory Jeremiah Chen Other [employer] Other Start: 07-04-2023 Telephone encounter Jeremiah Huggins ck [facility] Start: 04-21-2023 Office outpatient ne w 10 minutes Maribel Flanagan [facility] Start: 04-21-2023 End: 04-21-2023 ambulatory MD Zoran Flores Work Phone: [employer] Other Start: 04-21-2023 End: 04-21-2023 Patient encounter procedure MD Zoran Flores Work Phone: [facility] Work Phone: Start: 04-18-2023 Refill Michael dominguez MD Work Phone: [facility] (ENT) Comment on above: Refill Start: 04-04-2023 Emergency department patient visit ZORAN FLORES [facility] Start: 11-28-[address] DOCTOR OLIVIA Facility :[facility] Start: 11-18-2022 End: 11-19-[address] ZORAN FLORES Facility:[facility] Start: 10-14-2022 Orders Only Michael dominguez MD Work Phone: [facility] Ot[facility]ology (ENT) Comment on above: Referral to Special st Start: 08-07-2022 Refill Michael dominguez MD Work Phone: [facility] (ENT) Comment on above: Refill Start: 05-17-2022 Refill Michael dominguez MD Work Phone: [facility] (ENT) Comment on above: Refill Start: 04-01-2022 Encounter for genera l adult medical examination without abnormal findings DR ZORAN FLORES [facility] Start: 03-30-2022 End: 03-31-[address] ZORAN FLORES Facility:[facility] Start: 03-30-2022 End: 03-31-2022 Encounter for general adult medical examination without abnormal findings DR ZORAN FLORES Facility:[facility] Start: 02-25-2022 End: 02-25-[address] ZORAN FLORES Facility:[facility] Start: 11-02-2021 ambulatory UNKNOWN PROVIDER Facili ty:[facility] Start: 11-02-2021 End: 11-02-2021 Office outpatient visit 25 minutes Michael Wiseman MD Work Phone: [facility] (ENT) Comment on above: Chronic pansinusitis (Primary Dx); Anosmia; Multiple nasal polyps Start: 02-18-2021 End: 02-18-2021 Emergency department patient visit Enrique Srinivasan MD Work Phone: [facility] ED Comment on above: Chronic sinusitis, u nspecified location (Primary Dx); Post-op pain Start: 02-13-2021 End: 02-13-2021 Emergency department patient visit Enrique Srinivasan MD Work Phone: [facility] ED Comment on above: Close exposure to [place] VID-19 virus (Primary Dx) Start: 12-16-2020 End: 12-16-2020 Emergency department patient visit Adi Berg DO Work Phone: [facility] ED Comment on above: Mild intermittent as thma with exacerbation (Primary Dx) Start: 10-25-2020 End: 10-26-2020 Emergency department patient visit Avinash Kee MD Work Phone: [facility] ED Comment on above: Nausea vomiting and diarrhea (Primary Dx); COVID-19 virus infection Start: 10-19-2020 End: 10-20-2020 Emergency department patient visit Enrique Srinivasan Work Phone: [facility] ED Comment on above: COVID-19 (Primary Dx ) Procedures Date Procedure Procedure Detail Performing Clinician Start: 04-21-2023 X-ray of right knee MD Zoran Flores Work Phone: Start: 11-02-2021 Nasal endoscopy diagnostic uni/bi spx Michael Wiseman MD Work Phone: Start: 02-13-2021 COVID-19, RAPID Enrique Srinivasan MD Work Phone: Start: 10-25-2020 Blood count complete auto&auto difrntl wbc Avinash Kee MD Work Phone: Start: 10-19-2020 Radiologic exam ches t single view Enrique Srinivasan Work Phone: Start: 10-19-2020 COVID-19, RAPID Enrique Srinivasan Work Phone: Plan of Treatment Date Care Activity Detail Author Start: 2047 Shingles (RZV) Vaccine (1 of 2) Shingles (RZV) Vaccine (1 of 2) [facility] Start: 10-16-2031 Tetanus vaccination [facility] Start: 04-25-2023 End: 04-25-2023 Patient encounter procedure 04/25/2023 3:00 PM EDT Office Visit [facility] Otolaryngology (ENT) [address] [place] [address] Michael Wiseman MD [address] [place] [id number] [facility] (ENT) Start: 03-10-2023 Influenza vaccination Influenza Vacc ine (#1) [facility] Start: 04-09-2022 Influenza vaccination Influenza Vacc ine (#1) [facility] Start: 12-07-2021 End: 12-07-2021 Patient encounter procedure 12/07/2021 Office Visit Ent-Otolaryngology Michael Wiseman MD [address] [place] [address] [facility] Ot[facility] (ENT) Start: 03-10-2021 Influenza vaccination [facility] [employer] [employer] Phone: Start: 02-25-2020 DTaP/Tdap/Td vaccine (3 - Td or Tdap) DTaP/Tdap/Td vaccine (3 - Td or Tdap) [facility] [employer] Phone: Start: 02-25-2020 DTaP/Tdap/Td vaccine (3 - Td) DTaP/Tdap/Td vaccine (3 - Td) [facility] [employer] [employer] Phone: Start: 2018 Screening for malignant neoplasm of cervix [facility] Start: 2015 Hepatitis C screening Hepatitis C An tibody [facility] Start: 2015 Screening for Chlamydia trachomatis STI Screening (Age 18-24) [facility] Start: 2013 COVID-19 Vaccine (1) COVID-19 Vaccin e (1) [facility] [employer] Phone: Start: 2013 Screening for Chlamydia trachomatis Chlamydia screen [facility] [employer] [employer] Phone: Start: 02-23-2012 HIV screening HIV screen [facility] Work Phone: Start: 2009 COVID-19 Vaccine (1) COVID-19 Vaccin e (1) [facility] Work Phone: Start: 2002 COVID-19 Vaccine (1) COVID-19 Vaccin e (1) [facility] Start: 1998 Varicella vaccine (1 of 2 - 2-dose childhood series) Varicella vaccine (1 of 2 - 2-dose childhood series) [facility] [employer] [employer] Phone: Start: 1997 COVID-19 Vaccine (#1) COVID-19 Vacci ne (#1) [facility] Start: 1997 Hepatitis C screening Hepatitis C sc reen [facility] Work Phone: End: 10-25-2020 Magnesium [Mass/volume] in Serum or Plasma Magnesium Lab Routine Once for 1 Occurrences starting 10/25/2020 until 10/25/2020 [employer] Work Phone: Comment on above: Once for 1 Occurrenc es starting 10/25/2020 until 10/25/2020 Magnesium [Mass/volume] in Serum or Plasma Magnesium Lab Routine 10/25/2020 11:08 PM EDT [employer] Work Phone: Immunizations Immunization Date Immunization Notes Care Provider Fa cility 10-15-2021 tetanus toxoid, redu anastacio diphtheria toxoid, and acellular pertussis vaccine, adsorbed Michael Wiseman MD Work Phone: [facility] 07-19-2018 Human Papillomavirus 9-valent vaccine Michael Wiseman MD Work Phone: [facility] 03-23-2018 Human Papillomavirus 9-valent vaccine Michael Wiseman MD Work Phone: [facility] 01-16-2018 Human Papillomavirus 9-valent vaccine Michael Wiseman MD Work Phone: [facility] 02-24-2010 tetanus toxoid, redu anastacio diphtheria toxoid, and acellular pertussis vaccine, adsorbed Michael Wiseman MD Work Phone: [facility] 05-31-2005 influenza, seasonal, injectable Michael Wiseman MD Work Phone: [facility] 05-31-2005 influenza virus vacc ine, unspecified formulation Michael Wiseman MD Work Phone: [facility] 04-30-2003 influenza, seasonal, injectable Michael Wiseman MD Work Phone: [facility] 05-07-2002 influenza, seasonal, injectable Michael Wiseman MD Work Phone: [facility] 06-08-2001 diphtheria, tetanus toxoids and acellular pertussis vaccine, unspecified formulation Michael Wiseman MD Work Phone: [facility] 06-08-2001 measles, mumps and r ubella virus vaccine Michael Wiseman MD Work Phone: [facility] 06-08-2001 poliovirus vaccine, inactivated Michael Wiseman MD Work Phone: [facility] Payers Date Payer Category Payer Self-pay [id number] 2022 Medicaid [id number] 2018 Medicaid [place] [employer] [place] [employer] [id number] 2018-Present [phone] [address] [place] [address] Medicaid HMO [id number] 2016 Unknown [id number] 2013 Unknown ANTHEM - BLUE CR OSS BLUE CROSS/HMO,PPO,POS [id number] 2013-Present [address] [place] [address] PPO [id number] 1997 Unknown [id number] 1997 Unknown [id number] [id number] 1997 Unknown [id number] [id number] 1997 Unknown [id number] [id number] 1997 Unknown [id number] [id number] 1997 Unknown [id number] [id number] 1997 Unknown [id number] [id number] 1997 Unknown [id number] [id number] 1959 Unknown [id number] [id number] [id number] 1959 Unknown [id number] [id number] Unknown [id number] Unknown [id number] Social History Date Type Detail Facility Start: 01-18-2020 End: 10-19-2020 Tobacco smoking status [facility] Never smoker [facility] Phone: Start: 10-23-2018 End: 10-19-2020 Tobacco use and exposure Never used [facility]: Start: 10-19-2020 End: 02-13-2021 Alcohol intake Current non-drinker of alcohol (finding) [facility]: Start: 1995 Sex Assigned At Not on file [facility]: Exposure to SARS-CoV -2 (event) Yes [facility]: Exposure to SARS-CoV -2 (event) Not sure [facility] Start: 11-02-2021 Alcohol intake Current drinker of alcohol (finding) [facility] Start: 11-23-2018 History SDOH Alcohol Comment OCC [facility] Start: 1995 Sex Assigned At Female [facility] Start: 09-13-2021 Gender identity Identifies as female gender (finding) [facility] Start: 09-13-2021 Sexual orientation Female homosexual (finding) [facility] Sex Assigned At Sex Assigned At [facility] Other Clinical Notes 02-13-2021 to 10-13-2023 Note Date & Type Note Facility 04-21-2023 Evaluation note Encounter Date Diagnosis Assessment Notes Apr, Acute pain of right knee (ICD-10 - M25.561) Apr, Effusion, right knee (ICD-10 - M25.461) Knee effusion home care material was printed Drink plenty fluids, get plenty of rest. Continue home medications as prescribed. Wear knee sleeve for comfort. Ice and elevate your knee 2-3 times a day. Take Tylenol as needed for pain. Follow-up with your orthopedic surgeon if no improvement in 5 to 7 days [facility] Other 04-07-2023 Radha is asking if an outside referral can be sent to dr. Shankar in [place]. He specializes in Samter[place] triad but requires a referral. The fax number is [phone] and demographics will need to be sent as well. I would be happy to send the referral once it is available. Thank you, Callum [facility]04-07-2023 Telephone encounter Note* Telephone Encounter - Hansa Quiroga - 10/14/2022 3:08 PM EDT Magdalena is asking if an outside referral can be sent to dr. Shankar in [place]. He specializes in Samter [place] triad but requires a referral. The fax number is [phone] and demographics will need to be sent as well. I would be happy to send the referral once it is available. Thank you, Zoie [id number] Miscellaneous Notes* Telephone Encounter - Hansa Quiroga - 10/14/2022 3:08 PM EDT Magdalena is asking if an outside referral can be sent to dr. Shankar in [place]. He specializes in Samter [place] triad but requires a referral. The fax number is [phone] and demographics will need to be sent as well. I would be happy to send the referral once it is available. Thank you, Zoie documented in this [id number] Telephone encounter Note* Telephone Encounter - Becky Hernandez RP - 05/17/2022 2:31 PM EST Last visit with Ent-Otol (Michael Wiseman) was 11/02/2021. No future visit scheduled. Requested Prescriptions Pending Prescriptions Disp Refills montelukast (SINGULAIR) 10 MG tablet [Pharmacy Med Name: MONTELUKAST SOD 10 MG TABLET] 90 Tablet 3 Sig: TAKE 1 TABLET BY MOUTH EVERY DAY No PCP on file No PCP on file [id number] Miscellaneous Notes* Telephone Encounter - Becky Hernandez [facility] - 05/17/2022 2:31 PM EST Last visit with Ent-Otol (Michael Wiseman) was 11/02/2021. No future visit scheduled. Requested Prescriptions Pending Prescriptions Disp Refills montelukast (SINGULAIR) 10 MG tablet [Pharmacy Med Name: MONTELUKAST SOD 10 MG TABLET] 90 Tablet 3 Sig: TAKE 1 TABLET BY MOUTH EVERY DAY No PCP on file No PCP on file documented in this [id number] History of Present illness Narrative* Michael Wsieman MD - 11/02/2021 2:42 PM EDT Images from the original note were not included. CC: Nasal obstruction HPI: Magdalena Ennis is a 26 year old female who is being seen today for follow up. She had FESS for nasal polyps on 02-16-2021. She reports nasal obstruction on both sides of her nose. She is getting lots of yellow, sticky nasal secretions out both sides of her nose and down the back of her throat with occasional blood specks. She has recently started snoring. No taste or smell. She is not using Rhinocort nasal spray due to glaucoma concerns but she was also having difficulty getting her refills filled at her local pharmacy. She stopped sinus irrigations 2 months ago because it was causing left ear pressure and pain. She was not getting any debris out with irrigations. She felt she was able to clear out nose effectively just blowing. She continues taking her allergy medication and saline mist for nasal dryness. There are no significant/pertinent interval changes in history and there are no other ENT complaints/issues except as herein described. Past Medical History: Diagnosis Date Acid reflux Heartburn IBS (irritable bowel syndrome) Multiple allergies eggs,yeast,wheat,mushrooms,lactaid,milk,corn,cats,dogs,pollen,mold Obesity Snoring Past Surgical History: Procedure Laterality Date COLONOSCOPY ESOPHAGOGASTRODUODENOSCOPY X2 FUNCTIONAL ENDOSCOPIC SINUS SURGERY Bilateral 12/07/2018 Procedure: FUNCTIONAL ENDOSCOPIC SINUS SURGERY PER LOCALIZATION, SEPTOPLASTY (Bilateral maxillary antrostomies with removal of tissue, bilateral anterior ethmoidectomies, removal andrea bullosa, bilateral submucous resection and therapeutic outfracture of inferior turbinates); Surgeon: Michael Wiseman MD; Location: PERIOPERATIVE SERVICES; Service: Otolaryngology FUNCTIONAL ENDOSCOPIC SINUS SURGERY Bilateral 02/16/2021 Procedure: FUNCTIONAL ENDOSCOPIC SINUS SURGERY PER LOCALIZATION; Surgeon: Michael Wiseman MD; Location: [facility]; Service: Otolaryngology MYRINGOTOMY WITH PRESSURE EQUALIZING TUBES age 3 nasal turbinate surgery X 2 TONSILLECTOMY, ADENOIDECTOMY age 20 WISDOM TEETH Current Outpatient Medications on File Prior to Visit Medication Sig Dispense Refill cetirizine (ZyrTEC) 10 MG tablet TAKE 1 TABLET BY MOUTH EVERY DAY 90 Tablet 3 mupirocin (BACTROBAN) 2 % ointment Apply topically 2 times daily. 15 g 2 montelukast (SINGULAIR) 10 MG tablet Take 1 Tablet by mouth daily. 90 Tablet 3 albuterol (PROVENTIL HFA) INHALATION HFA inhaler (VENTOLIN,PROAIR,PROVENTIL) 90mcg TAKE 2 PUFFS BY MOUTH EVERY 4 HOURS NEEDED Symbicort 160-4.5 MCG/ACT inhaler TAKE 2 PUFFS BY MOUTH TWICE A DAY EPINEPHrine (EPIPEN 2-AL) 0.3 MG/0.3ML injection Use as instructed for allergic reaction 2 Each 3 No current facility-administered medications on file prior to visit. Allergies Allergen Reactions Bee Pollen Itching Egg Or Chicken-Derived Drugs ALLERGIC TO EGGS Lactose Vomiting Mushroom Extract Complex Nausea Pollen Extract Itching Wheat Bran diarrhea Rowlett Oil Other reaction(s): Nausea And Vomiting Rowlett-Related Products Nausea Other (Review Comments!) Itching and Hives Pt states she had allergy testing done and the test showed bakers yeast allergy. Other reaction(s): Vomiting Cats and dogs Other reaction(s): Nausea And Vomiting Sulfa Antibiotics Other reaction(s): Nausea And Vomiting Sulfasalazine Other reaction(s): Nausea And Vomiting Family History Problem Relation Age of Onset Other (autoimmune disorder, EOE) Mother SOCIAL HISTORY Social History Tobacco Use Smoking status: Never Smoker Smokeless tobacco: Never Used Substance Use Topics Alcohol use: Yes Comment: OCC Drug use: No PHYSICAL EXAM BP 141/96 Pulse 99 Resp 16 ######################################################################## PROCEDURE NOTE Because of an inability to get an optimal / adequate view otherwise, the fiberoptic scope was passed into the nares; the nasal cavity, nasopharynx, and if applicable, any opened sinuses were examined. Exam was normal except as otherwise indicated below. Significant development of polyps bilaterally with thick, yellow, tenacious secretions. ######################################################################## Encounter Diagnoses Name Primary? Chronic pansinusitis Yes Anosmia Multiple nasal polyps Discussion/Recommendations: 60 capsules of budesonide (0.5 mg/capsule), Dissolve 2 capsules sinus rinse bottle along with the saline, and to irrigate the left and right nasal cavity with one-half of the contents of the nasal rinse once daily Prednisone + Augmentin Really needs treatment in conjunction with allergy/immunology Reassess within two months Michael Wiseman MD, FACS Documentation: Mode: In Person Time-Based Billing Justifications: Reviewing chart other clinical notes Patient visit (Including obtaining history or reviewing separately obtained history & performing a medically appropriate exam) Counseling/educating : patient Charting in [facility] of which 20 minutes was spent [id number] with the patient documented in this [id number] Hospital Discharge instructions* Instructions* Enrique Srinivasan MD - 02/18/2021 Please take all medications as prescribed. If you have received narcotic medications (pain killers) while in the Emergency Room you are NOT todrive yourself home today, you need to find a ride, take the bus or call a cab. Please do not drive, operate machinery or engage in any activities that requrie concentration and where safety could be an issue while taking narcotic medications (pain killers). Please follow up with your primary care physician by calling today, or as soon as possible, for thefirst available appointment. If you do not have a primary care physician, please contact a physician or clinic listed below today to establish care. Please return to the emergency department IMMEDIATELY if you develop uncontrolled fevers, uncontrolled vomiting, change in symptoms, worsening of symptoms, or ANY other concerns. documented in this encounterDelver Phone: [phone]) 294-364208-07-2021 Hospital Discharge instructions* Instructions* Enrique Srinivasan MD - 02/13/2021 Please take all medications as prescribed. Please follow up with your primary care physician by calling today, or as soon as possible, for thefirst available appointment. If you do not have a primary care physician, please contact a physician or clinic listed below today to establish care. Please return to the emergency department IMMEDIATELY if you develop uncontrolled fevers, uncontrolled vomiting, change in symptoms, worsening of symptoms, or ANY other concerns. * Attachments The following attachments cannot be sent through Care Everywhere. * Coronavirus Disease (COVID-19): General Info (Syrian) documented in this encounterDelver Phone: evaluation note* Diagnosis Nausea vomiting and diarrhea- Primary Nausea with vomiting COVID-19 virus infection documented in this encounter [facility] Phone: evaluation note* Diagnosis Mild intermittent asthma with exacerbation- Primary Unspecified asthma, with exacerbation documented in this encounter [facility] Phone: [email or web address] note* Diagnosis Close exposure to COVID-19 virus- Primary documented in this encounter [facility] Phone: evalioxjho note* Diagnosis Chronic sinusitis, unspecified location- Primary Post-op pain Other acute postoperative pain documented in this encounter [facility] Phone: evalejwcat note* Diagnosis Chronic pansinusitis- Primary Other chronic sinusitis Anosmia Disturbances of sensation of smell and taste Multiple nasal polyps Unspecified nasal polyp [facility] Chronic pansinusitis- Primary Other chronic sinusitis Multiple nasal polyps Unspecified nasal polyp documented [facility] Work Phone: Evaluation noteNo InformationNortConemaugh [facility] Other [facility] general Narrative - Reported* Type Description Date Medical History Seasonal Allergies Medical History glaucoma Medical History IBSD Medical History Asthma Surgical History Sinus Surgery x2 Surgical History PET Placement Surgical History Endoscopy Surgical History WISDOM TEETH REMOVED-WELCH - 2015 Surgical History TONSILLECTOMY 2015 Surgical History TURBINOPLASTY x3 2015 Surgical History tonsillectomy and adenoidectomy Surgical History colonoscopy Surgical History septoplasty Surgical History polypectomy Hospitalization History See past surgical hx [facility] Other Hospital Discharge instructions* Attachments The following attachments cannot be sent through Care Everywhere. * Coronavirus Disease (COVID-19): General Info (Syrian) * COVID-19: Taking Care of Yourself If You Have It: Video (Syrian) * Nausea and Vomiting (Syrian) * Diarrhea (Syrian) [facility] Phone: Hospital Discharge instructions* Attachments The following attachments cannot be sent through Care Everywhere. * Asthma: General Info (Syrian) [facility] Phone: Discharge Instructions * Instructions* Enrique Srinivasan MD - 10/20/2020 Please take all medications as prescribed. Please follow up with your primary care physician by calling today, or as soon as possible, for thefirst available appointment. If you do not have a primary care physician, please contact a physician or clinic listed below today to establish care. Please return to the emergency department IMMEDIATELY if you develop uncontrolled fevers, uncontrolled vomiting, change in symptoms, worsening of symptoms, or ANY other concerns. * Attachments The following attachments cannot be sent through Care Everywhere. 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 Advance Directive Response Recorded Date/ Time Advance Directives No March 6:28pm Reason for Referral Specialty Diagnoses / Procedures Referred By Contac t Referred To Contact Diagnoses Chronic pansinusitis Multiple nasal polyps Michael Wiseman MD [address] [place] [address] Referral ID Status Reason Start Date Expiration Date Visits Requested Visits Authorized [id number] Authorized Patient Preference 10/14/2022 10/15/2023 3 3 Comments Chuy Shankar MD Summary Purpose Family History No Family History Records FoundNo Family History Records FoundNo Family History Records FoundNo Family History Records FoundNo Family History Records Found Chief Complaint and Reason for Visit Chief Complaint right knee pain Additional Source Comments Reason for Visit (unrecogniz ed section and content) Reason Comments Shortness of Breath states s/s started 2 days ago Other COVID exposure Concern For COVID-19 Reason Comments Emesis x4 days, pt postitiv e for COVID Diarrhea x4 days, states william e green Reason Comments Asthma Increased SOB 20 min utes prior to arrival Reason Comments Other Pt was exposed to a positive covid pt. x 1 week Reason Comments Post-op Problem sinus surgery on 02/07 0. Increased pain and reports bleeding from nose and throat. Reason Comments Monitoring/follow-up Reason Comments Refill Reason Onset Date Comments Referral to Specialist 10/14/2022 Ordered Prescriptions (unrec ognized section and content) Prescription Sig Dispensed Refills Start Date End Da te methylPREDNISolone (MEDROL, AL,) 4 MG tablet Take by mouth. 1 kit 0 10/20/2020 10/26/2020 Prescription Sig Dispensed Refills Start Date End Da te pantoprazole sodium (PROTONIX) 40 MG PACK packet Take 1 packet by mouth every morning (before breakfast) 30 each 3 10/26/2020 ondansetron (ZOFRAN ODT) 4 MG disintegrating tablet Take 1 tablet by mouth every 8 hours as needed for Nausea or Vomiting 20 tablet 0 10/26/2020 10/31/2020 Prescription Sig Dispensed Refills Start Date End Da te amoxicillin (AMOXIL) 500 MG capsule Take 1 capsule by mouth 3 times daily for 7 days 21 capsule 0 02/18/2021 02/25/2021 Scheduled Active and Recently Administ ered Medications (unrecognized section and content) Medication Order 12/14/2020 12/15/2020 12/16/2020 albuterol (PROVENTIL) nebulizer solution 2.5 mg (COMPLETED) 2.5 mg, Nebulization, ONCE, On Mon12/16/20 at 2245, For 1 dose, 5 years of Age or greater 2240 (Given - Provid er: Awilda Leon RCP) albuterol sulfate HFA 108 (90 Base) MCG/ACT inhaler 2 puff 2 puff, Inhalation, ONCE, On Mon12/16/20 at 2315, For 1 dose 2315 (Due) ipratropium-albuterol (DUONEB) nebulizer solution 1 ampule (COMPLETED) 1 ampule, Inhalation, ONCE, On Mon12/16/20 at 2245, For 1 dose 2240 (Given - Provid er: Awilda Leon RCP) predniSONE (DELTASONE) tablet 60 mg (COMPLETED) 60 mg, Oral, ONCE, On Mon12/16/20 at 2245, For 1 dose 2314 (Given - Provid er: aNncy Jones RN) Scheduled Medication Order 02/16/2021 02/17/2021 02/18/2021 acetaminophen (TYLENOL) tablet 650 mg (COMPLETED) 650 mg, Oral, ONCE, On Marti 02/18/21 at 2130, For 1 dose, Maximum dose of acetaminophen is 4000 mg from all sources in 24 hours. 2130 (Given - Provid er: Betzaida Espinal RN) amoxicillin (AMOXIL) capsule 500 mg (COMPLETED) 500 mg, Oral, ONCE, On Marti 02/18/21 at 2130, For 1 dose 0 (Given - Provid er: Betzaida Espinal RN) HYDROcodone-acetaminophen (NORCO) 5-325 MG per tablet 1 tablet (COMPLETED) 1 tablet, Oral, ONCE, On Marti 02/18/21 at 2130, For 1 dose 0 (Given - Provid er: Betzaida Espinal RN) hydrocodone-acetaminophen (NORCO) tablet 5-325 mg (STARTER PACK) This order is for a take home starter pack of medication. Please document Not Given with a reason of other on the MAR along with a comment of sent home with patient. 2132 (Not Given - Pr ovider: Betzaida Espinal RN - Reason: Patient took at home) Care Teams (unrecognized sec tion and content) Retina Subspecialist Relationship Specialty Start Date End Date Heather Taylor MD [address] [place] [id number] [phone] Physician Allergy Medicine 04/14/20 Michael Wiseman MD [address] [place] [address] [id number] Physician Otolaryngology 04/14/20 Retina Subspecialist Relationship Specialty Start Date End Date Heather Taylor MD [address] [place] [address] [phone] Physician Allergy Medicine 04/14/20 Michael Wiseman MD [address] [place] [address] [phone] Physician Otolaryngology 04/14/20 Retina Subspecialist Relationship Specialty Start Date End Date Heather Taylor MD [address] [place] [address] [phone] Physician Allergy Medicine 04/14/20 Michael Wiseman MD [address] [place] [address] [phone] Physician Otolaryngology 04/14/20 Retina Subspecialist Relationship Specialty Start Date End Date Heather Taylor MD [address] [place] [address] [phone] Physician Allergy Medicine 04/14/20 Michael Wiseman MD [address] [place] [address] [phone] Physician Otolaryngology 04/14/20 Retina Subspecialist Relationship Specialty Start Date End Date Heather Taylor MD [address] [place] [address] [id number] Physician Allergy Medicine 04/14/20 Michael Wiseman MD [address] [place] [address] [id number] Physician Otolaryngology 04/14/20 Retina Subspecialist Relationship Specialty Start Date End Date Heather Taylor MD [address] [place] [address] [phone] Physician Allergy Medicine 04/14/20 Michael Wiseman MD [address] [place] [address] [phone] Physician Otolaryngology 04/14/20 Team Status: Active Member Role Status Dates Zoran Flores MD Primary Care Provider Active Team Status: Inactive Member Role Status Dates Zoran Flores MD Primary Care Provider Active Maribel Flanagan NP-C Attending Provider Active INFORMATION SOURCE (unrecogn ized section and content) DATE CREATED AUTHOR 10/16/2022 [facility] DATE CREATED AUTHOR AUTHOR'S ORGANIZ ATION 12/16/2022 [facility] DATE CREATED AUTHOR AUTHOR'S ORGANIZ ATION 04/24/2023 [facility] DATE CREATED AUTHOR AUTHOR'S ORGANIZ ATION 04/29/2023 [facility] DATE CREATED AUTHOR AUTHOR'S SOLIS HDZ 07/19/2023 [facility] EPIC Goals (unrecognized section and content) Goals may be documented in a n alternate section FOR RECORDS PERTAINING TO PATIENTS WHO ARE OR HAVE BEEN ENROLLED IN A CHEMICAL DEPENDENCY/SUBSTANCEABUSE PROGRAM, SOME INFORMATION MAY BE OMITTED. This clinical summary was aggregated from multiple sources. Caution should be exercised in using it in the provision of clinical care. This summary normalizes information from multiple sources, and as a consequence, information in this document may materially change the coding, format and clinical context of patient data. In addition, data may be omitted in some cases. CLINICAL DECISIONS SHOULD BE BASED ON THE PRIMARY CLINICAL RECORDS. [employer] provides no warranty or guarantee of the accuracy or completeness of information in this document.
[2023-07-27 15:08] LABS: Estimated Average Glucose 117 mg/dL; Glycohemoglobin A1C 5.7 % (4.5-6.2)
[2023-07-27 15:37] LABS: Alanine Aminotransferase 18 U/L (14-59); Albumin Globulin Ratio 0.9; Albumin Level 3.6 g/dL (3.4-5.0); Alkaline Phosphatase 75 U/L (46-116); Anion Gap 13.7; Aspartate Amino Transferase 11 U/L (15-37); BUN Creatinine Ratio 11.9; Bilirubin Direct 0.1 mg/dL (0.0-0.2); Bilirubin Total 0.3 mg/dL (0.2-1.0); Calcium 9.1 mg/dL (8.5-10.1); Carbon Dioxide 26.3 mmol/L (21.0-32.0); Chloride 103 mmol/L (98-107); Chol HDL Ratio 3.8; Cholesterol 184 mg/dL (<=200); Estimated GFR (African America >60 (>=60); Estimated GFR (Non-African Ame >60 (>=60); Glucose 106 mg/dL (74-106); HDL Cholesterol 48 mg/dL (40-60); LDL Cholesterol Calculated 123.8 mg/dL; Sodium 139 mmol/L (136-145); Thyroid Stimulating Hormone 0.814 uIU/mL (0.358-3.740); Total Protein 7.6 g/dL (6.4-8.2); Triglycerides 61 mg/dL (<=150); VLDL CHOLESTEROL 12.2 mg/dL
== END 2023-07-27 14:34 | disposition home or self-care (01) ==
LOC: LAB 14:34
PROVIDERS: PCP Family Medicine; Visit Provider Family Medicine
DX: Z00.00 Encounter for general adult medical examination without abnormal findings (principal)
CPT/HCPCS: 36415; 80048; 80061; 80076; 83036; 84443; 85025

== ENCOUNTER 2023-08-22 12:26 | Outpatient (OUT) | payer MEDICAID, SELFPAY ==
--- NOTE | 2023-08-22 12:29 | CT_ITS ---
[address] [address] Patient Name: LILIANA RHODES MRN: [id number] date: 1995 Sex: F Assigned Patient Location: CT Current Patient Location: CT Accession/Order Number: [id number] Exam Date: 08/22/2023 13:33 Report Date: 08/22/2023 14:13 At the request of: MIL FLORES Procedure: CT abdomen wo/w con EXAM: CT abdomen wo/w con HISTORY: right kidney mass N28.89 COMPARISON: 06/30/2023 TECHNIQUE: Axial CT images were obtained of the abdomen without and with intravenous contrast. Multiplanar reconstructions were performed. ABDOMEN FINDINGS: Lower Chest: Unremarkable. Liver: Hepatic steatosis is present. Biliary/Gallbladder: Unremarkable. Pancreas: Unremarkable. Spleen: Unremarkable. Adrenal Glands: Unremarkable. Kidneys: There is an enhancing nodule along the posterior cortex of the right kidney measuring 1.4 x 1.3 cm. Gastrointestinal/Peritoneum: No acute abnormality. No free air or free fluid. Vascular: Unremarkable. Lymph Nodes: No enlarged lymph nodes by CT size criteria. Bones: No acute osseous abnormality. Soft tissues: Unremarkable. CT/CT abdomen wo/w con IMPRESSION: 1. Small enhancing lesion along the posterior cortex of the right kidney measuring 1.4 cm, possibly representing a benign or malignant neoplasm of the kidney. 2. Hepatic steatosis. Electronically authenticated by: SHAWN ALEJANDRE Date: 08/22/2023 14:13
--- OUTSIDE RECORDS SUMMARY | 2023-08-22 12:29 | XMS_ITS | CCD ---
Author Name Unknown Address [address] [place] [address] Organization [facility] Care Team Providers Care Sprayer Leather Name Role Phone Zoran Flores Primary Care Provider [phone] Heather Taylor MD Unavailable [phone] Michael Wiseman MD Unavailable Heather Taylor MD Unavailable Michael Wiseman MD Unavailable Heather Taylor MD Unavailable [phone] Michael Wiseman MD Unavailable DR ZORAN FLORES Consulting Unavailable NADERER, DR ZORAN Baez Primary Care Unavailable NADERER, DR ZORAN Baez Admitting Unavailable NADERER, DR ZORAN Baez Attending Unavailable NADEREDel, DR ZORAN Baez Primary Care Unavailable MISC, DR HOFFMAN Attending Unavailable MISC, DR HOFFMAN Consulting Unavailable MISC, DR HOFFMAN Admitting Unavailable LELEONARD Consulting Unavailable MISC, DR HOFFMAN Admitting Unavailable MISC, DR HOFFMAN Attending Unavailable NADERER, DR ZORAN Baez Primary Care Unavailable NADERER, DR ZORAN Baez Primary Care Unavailable PAY ., DR MELO Admitting Unavailable PAY ., DR MELO Attending Unavailable PAY ., DR MELO Consulting Unavailable MATEUS BUTCHER Consulting Unavailable LAKESHIA CAMEJO Consulting Unavailable Maribel Flanagan Unavailable MD Zoran Flores Primary Care Provider CHELY Flanagan Attending Provider ZORAN FLROES Primary Care Unavailabl e Masha, Maribel Attending Unavailable Maribel Flanagan Admitting Unavailable Zoran Flores Primary Care Unavailable Jeremiah Chen Unavailable MARYANA AMADOR Referring Unavailable HANY ELLISON Attending Unavailable ZORAN FLORES Attending Unavailable Allergies Allergy Classification Reported Allergen(s) Allergy Type Date of Onset Reaction(s) Facility Pollen (4 sources) bee pollen Substance Allergy 06-10-20 15 Itching [facility] Sulfonamides (antibiotic) (4 sources) Sulfonamides (Antibiotic) Drug Allergy 06-10-20 15 Nausea And Vomiting [facility] (2 sources) bee pollen Propensity to adverse reactions to drug 06-10-20 15 Itching [facility] Work Phone: (2 sources) Sulfonamides (Antibiotic) Propensity to adverse reactions to drug 06-10-20 15 Nausea And Vomiting [facility] Work Phone: (5 sources) [place]-Containing Products Propensity to adverse reactions to drug 06-10-20 15 Nausea And Vomiting [facility] Work Phone: (5 sources) Eggs Or Egg-Derived Products Propensity to adverse reactions to drug 06-10-20 15 Nausea And Vomiting [facility] Work Phone: (2 sources) Other Propensity to adverse reactions 06-10-20 15 Itching [facility] Work Phone: (5 sources) Yeast-Related Products Propensity to adverse reactions to drug 06-10-20 15 Other (See Comments) [facility] Work Phone: (1 source) Bee pollen Drug Allergy 12-17-19 17 Itching [facility] (6 sources) [place] Oil Drug Allergy 12-17-19 17 [facility] (1 source) cultivated mushroom extract Drug Allergy 10-24-19 19 Nausea [facility] (1 source) Lactose Drug Allergy 10-24-19 19 Vomiting [facility] (1 source) sulfaSALAzine Drug Allergy 12-17-19 17 [facility] (6 sources) WHEAT DEXTRIN Drug Allergy 12-08-19 19 [facility] Work Phone: (6 sources) [place]-Related Products Propensity to adverse reactions to drug 06-10-20 15 Nausea [facility] (6 sources) Egg Or Chicken-Derived Drugs Propensity to adverse reactions to drug 11-24-19 19 [facility] (6 sources) Other (Review Comments!) Propensity to adverse reactions to drug 06-10-20 [...] allergenic extract Drug Allergy 01-14-20 13 [facility] (2 sources) corn extract Drug Allergy 01-14-20 13 [facility] (2 sources) egg extract Drug Allergy 02-20-20 16 sick to stomach [facility] (2 sources) Sulfonamides (Antibiotic) Drug allergy (disorder) 01-14-20 13 [facility] (2 sources) Wheat preparation Drug Allergy 01-14-20 13 [facility] (2 sources) Misc-Food; Translations: [Misc-Food] Food allergy (disorder) 01-14-20 13 [facility] (2 sources) Egg Propensity to adverse reactions Unknown [facility] Other (2 sources) Sulfacetamide / Sulfur Drug Allergy pt doesn't remember [facility] Other (2 sources) Sulfonamides (Antibiotic); Translations: [Sulfa (Sulfonamide Antibiotics)] Allergy to substance 01-18-20 20 Vomiting [facility] (1 source) egg extract Drug Allergy 01-18-20 [facility] Repository NEGATED: Highlighted row has been ruled out!Unclassified (3 sources) Other Propensity to adverse reactions 06-10-20 15 Itching [facility] Medications Current Medications Medication Drug Class(es) Dates [...] as needed for Pain . 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 Please contact patient to schedule office visit. Thank you Normal [facility] MR KNEE RIGHT WO IV CONTRAST on [...] RT 4V*on 04-21-2023 XR knee RT 4V* [facility] Main [place] [address] [place] [address] XRay Report Signed Patient: Magdalena Ennis MR#: [id number] : 1995 Acct:[id number] Age/Sex: 28 / F ADM Date: 04/21/23 Loc: XDUC Room: Type: [facility] Attending Dr: Maribel MO Copies to: [...] Essie Rdz M.D.04/21/2023 12:14 PM Dictation Location: [place] [address] Transcribed By: [facility] 04/21/23 1219 Dictated By: Essie Rdz MD 04/21/23 1213 Signed By: 04/21/23 1214 Normal [facility] XR knee RT 4V* [facility] [employer] Other XR knee RT 4V* [facility] Main [facility] [employer] Other XR knee RT 4V* [address] [facility] [employer] Other XR knee RT 4V* [place] [address] No rt [employer] Other XR knee RT 4V* XRay Report [facility] Other XR knee RT 4V* Signed [facility] Other XR knee RT 4V* Patient: Magdalena Ennis MR#: [id number] [place] [employer] Other XR knee RT 4V* 8702 [facility] Other XR knee RT 4V* : 1995 Acct:[id number] [facility] Other XR knee RT 4V* Age/Sex: 28 / F ADM Date: 04/21/23 [facility] Other XR knee RT 4V* [facility] Other XR knee RT 4V* Attending Dr: Maribel MO [facility] Other XR knee RT 4V* Copies to: CHELY Miranda [facility] Other XR knee RT 4V* Ordering Provider: CHELY Miranda [facility] Other XR knee RT 4V* Date of Service: 04/21/23 [facility] Other XR knee RT 4V* XR/XR knee RT 4V*: RIGHT KNEE PAIN [facility] Other XR knee RT 4V* RIGHT KNEE - 4 views [facility] Other XR knee RT 4V* COMPARISON: None [facility] [employer] Other XR knee RT 4V* CLINICAL DATA: Patient felt a pop at the right knee yesterday and the day before and has had pain at [facility] Other XR knee RT 4V* the knee since. [facility] Other XR knee RT 4V* AP, lateral and both oblique views were obtained. These no acute fracture or dislocation. There is [facility] Other XR knee RT 4V* minor squaring off of the articular margins at the posterior patella. There is a trace amount joint [facility] Other XR knee RT 4V* fluid. No focal soft tissue abnormalities are seen. [facility] Other XR knee RT 4V* XR/XR knee RT 4V* [facility] Other XR knee RT 4V* IMPRESSION: [facility] Other XR knee RT 4V* NO ACUTE BONY FINDINGS. [facility] Other XR knee RT 4V* Impression dictated by: Essie Rdz M.D.04/21/2023 12:14 PM [facility] Other XR knee RT 4V* Dictation Location: [place] [address] [facility] Other XR knee RT 4V* Transcribed By: CHRISSIE 04/21/23 1214 [facility] Other XR knee RT 4V* Dictated By: Essie Rdz MD 04/21/23 1217 [facility] Other XR knee RT 4V* Signed By: [facility] Other XR knee RT 4V* 04/21/23 1214 [facility] Other CBC with Diffon 04-04-2023 Abs. Basophil 0.04 k/uL Normal 0.00-0.20 [facility] Comment on above: Performed By: #### M G, DIME, CDP, CP, TROPI #### [address] [place] [address] Ppa Teacher: Michael Ordonez MD Abs.Imm.Granulocyte <0.03 Normal 0.00-0.30 [facility] Comment on above: Performed By: #### M G, DIME, CDP, CP, TROPI #### [address] [place] [address] Ppa Teacher: Michael Ordonez MD Abs.Neutrophil (Seg) 5.05 k/uL Normal 1.50-8.10 [facility] Comment on above: Performed By: #### M G, DIME, CDP, CP, TROPI #### [address] [place] [address] Ppa Teacher: Michael Ordonez MD Basophils/100 WBC (Bld) 1 % Normal 0-2 [facility] Comment on above: Performed By: #### M G, DIME, CDP, CP, TROPI #### [address] [place], [place] [address] Ppa Teacher: Michael Ordonez MD Eosinophils (Bld) [#/Vol] 0.32 10*3/uL Normal 0.00-0.44 [facility] Comment on above: Performed By: #### M G, DIME, CDP, CP, TROPI #### [address] [place], [place] [id number] Ppa Teacher: Michael Ordonez MD Eosinophils/100 WBC (Bld) 4 % Normal 1-4 [facility] Comment on above: Performed By: #### M G, DIME, CDP, CP, TROPI #### [address] [place], [place] [address] Ppa Teacher: Michael Ordonez MD Erythrocyte distribution width (RBC) [Ratio] 14.3 % Normal 11.8-14.4 [facility] Comment on above: Performed By: #### M G, DIME, CDP, CP, TROPI #### [address] [place], [place] [address] Ppa Teacher: Michael Ordonez MD Hematocrit (Bld) [Volume fraction] 36.1 % Low 36.3-47.1 [facility] Comment on above: Performed By: #### M G, DIME, CDP, CP, TROPI #### [address] [place] [address] Ppa Teacher: Michael Ordonez MD Hemoglobin (Bld) [Mass/Vol] 11.6 g/dL Low 11.9-15.1 [facility] Comment on above: Performed By: #### M G, DIME, CDP, CP, TROPI #### [address] [place], [place] [address] Ppa Teacher: Michael Ordonez MD Immature granulocytes/100 WBC (Bld) 0 % Normal 0 [facility] Comment on above: Performed By: #### M G, DIME, CDP, CP, TROPI #### [address] [place], [facility] Ppa Teacher: Michael Ordonez MD Lymphocytes (Bld) [#/Vol] 1.94 10*3/uL Normal 1.10-3.70 [facility] Comment on above: Performed By: #### M G, DIME, CDP, CP, TROPI #### [address] [place], [facility] Ppa Teacher: Michael Ordonez MD Lymphocytes/100 WBC (Bld) 25 % Normal 24-43 [facility] Comment on above: Performed By: #### M G, DIME, CDP, CP, TROPI #### [address] [place] [id number] ( Ppa Teacher: Michael Ordonez MD MCH (RBC) [Entitic mass] 27.6 pg Normal 25.2-33.5 [facility] Comment on above: Performed By: #### M G, DIME, CDP, CP, TROPI #### [address] [place] [address] Ppa Teacher: Michael Ordonez MD MCHC (RBC) [Mass/Vol] 32.1 g/dL Normal 28.4-34.8 [facility] Comment on above: Performed By: #### M G, DIME, CDP, CP, TROPI #### [address] [place], [place] [address] Ppa Teacher: Michael Ordonez MD MCV (RBC) [Entitic vol] 86.0 fL Normal 82.6-102.9 [facility] Comment on above: Performed By: #### M G, DIME, CDP, CP, TROPI #### [address] [place] [address] Ppa Teacher: Michael Ordonez MD Monocytes (Bld) [#/Vol] 0.43 10*3/uL Normal 0.10-1.20 [facility] Comment on above: Performed By: #### M G, DIME, CDP, CP, TROPI #### [address] [place], [place] [address] Ppa Teacher: Michael Ordonez MD Monocytes/100 WBC (Bld) 6 % Normal 3-12 [facility] Comment on above: Performed By: #### M G, DIME, CDP, CP, TROPI #### [address] [place] [phone] Ppa Teacher: Michael Ordonez MD Neutrophil (Seg) 64 % Normal 36-[address] [facility] Comment on above: Performed By: #### M G, DIME, CDP, CP, TROPI #### [facility] [address] [place], [place] [id number] Ppa Teacher: Michael Ordonez MD NRBC Automated 0.0 per 100 WBC Normal 0.0 [facility] Comment on above: Performed By: #### M G, DIME, CDP, CP, TROPI #### [facility] [address] [place], [place] [phone] Ppa Teacher: Michael Ordonez MD Platelet mean volume (Bld) [Entitic vol] 9.7 fL Normal 8.1-13.5 [facility] Comment on above: Performed By: #### M G, DIME, CDP, CP, TROPI #### [address] [place], [facility] Ppa Teacher: Michael Ordonez MD Platelets (Bld) [#/Vol] 333 10*3/uL Normal 138-453 [facility] Comment on above: Performed By: #### M G, DIME, CDP, CP, TROPI #### [address] [place], [place] [id number] Ppa Teacher: Michael Ordonez MD RBC (Bld) [#/Vol] 4.20 10*6/uL Normal 3.95-5.11 [facility] Comment on above: Performed By: #### M G, DIME, CDP, CP, TROPI #### [facility] [address] [place], [place] [phone] Ppa Teacher: Michael Ordonez MD WBC (Bld) [#/Vol] 7.8 10*3/uL Normal 3.5-11.3 [facility] Comment on above: Performed By: #### M G, DIME, CDP, CP, TROPI #### [facility] [address] [place], [place] [id number] Ppa Teacher: Michael Ordonez MD Comp Metabolic Profon 2022 Albumin [Mass/Vol] 4.3 g/dL Normal 3.5-5.2 [facility] Comment on above: Performed By: #### M G, DIME, CDP, CP, TROPI #### [facility] [address] [place] [address] Ppa Teacher: Michael Ordonez MD Albumin/Glob Ratio 1.5 Normal 1.0-2.5 [facility] Comment on above: Performed By: #### M G, DIME, CDP, CP, TROPI #### [facility] [address] [place], [place] [phone] Ppa Teacher: Michael Ordonez MD Alkaline Phos 80 U/L Normal 35-104 [facility] Comment on above: Performed By: #### M G, DIME, CDP, CP, TROPI #### [facility] [address] [place], [place] [id number] Ppa Teacher: Michael Ordonez MD ALT [Catalytic activity/Vol] 13 U/L Normal 5-33 [facility] Comment on above: Performed By: #### M G, DIME, CDP, CP, TROPI #### [facility] [address] [place], [place] [phone] Ppa Teacher: Michael Ordonez MD Anion gap [Moles/Vol] 9 mmol/L Normal 9-17 [facility] Comment on above: Performed By: #### M G, DIME, CDP, CP, TROPI #### [facility] [address] [place], [place] [id number] Ppa Teacher: Michael Ordonez MD AST [Catalytic activity/Vol] 12 U/L Normal <32 [facility] Comment on above: Performed By: #### M G, DIME, CDP, CP, TROPI #### [facility] [address] [place], [place] [phone] Ppa Teacher: Michael Ordonez MD Bilirubin [Mass/Vol] 0.2 mg/dL Low 0.3-1.2 [facility] Comment on above: Performed By: #### M G, DIME, CDP, CP, TROPI #### [facility] [address] [place], [place] [phone] Ppa Teacher: Michael Ordonez MD BUN/CRE Ratio 8 Low 9-20 [facility] Comment on above: Performed By: #### M G, DIME, CDP, CP, TROPI #### [address] [place], [place] [phone] Ppa Teacher: Michael Ordonez MD Calcium [Mass/Vol] 9.5 mg/dL Normal 8.6-10.4 [facility] Comment on above: Performed By: #### M G, DIME, CDP, CP, TROPI #### [address] [place], [place] [id number] Ppa Teacher: Michael Ordonez MD Chloride [Moles/Vol] 103 mmol/L Normal 98-107 [facility] Comment on above: Performed By: #### M G, DIME, CDP, CP, TROPI #### [facility] [address] [place] [address] Dr. [place], [place] [phone] Ppa Teacher: Michael Ordonez MD CO2 [Moles/Vol] 26 mmol/L Normal 20-31 [facility] Comment on above: Performed By: #### M G, DIME, CDP, CP, TROPI #### [facility] [address] [place], [place] [phone] Ppa Teacher: Michael Ordonez MD Creatinine [Mass/Vol] 0.6 mg/dL Normal 0.5-0.9 [facility] Comment on above: Performed By: #### M G, DIME, CDP, CP, TROPI #### [facility] [address] [place] [address] Ppa Teacher: Michael Ordonez MD GFR/1.73 sq M.predicted among non-blacks MDRD (S/P/Bld) [Vol rate/Area] mL/min/{1.73_m2} Normal >60 [facility] Comment on above: Result Comment: These results [...] M G, DIME, CDP, CP, TROPI #### [address] [place] [address] Ppa Teacher: Michael Ordonez MD Glucose [Mass/Vol] 96 mg/dL Normal 70-99 [facility] Comment on above: Performed By: #### M G, DIME, CDP, CP, TROPI #### [address] [place] [address] Ppa Teacher: Michael Ordonez MD Potassium [Moles/Vol] 4.4 mmol/L Normal 3.7-5.3 [facility] Comment on above: Performed By: #### M G, DIME, CDP, CP, TROPI #### [facility] [address] [place] [address] [place] [address] Ppa Teacher: Michael Ordonez MD Protein [Mass/Vol] 7.1 g/dL Normal 6.4-8.3 [facility] Comment on above: Performed By: #### M G, DIME, CDP, CP, TROPI #### [address] [place] [address] Ppa Teacher: Michael Ordonez MD Sodium [Moles/Vol] 138 mmol/L Normal 135-144 [facility] Comment on above: Performed By: #### M Damián, JUAN LUIS ZAVALA, CP, TROPI #### [facility] [address] [place] [address] Ppa Teacher: Michael Ordonez MD Urea nitrogen [Mass/Vol] 5 mg/dL Low 6-20 [facility] Comment on above: Performed By: #### M SALLY Steel CDP, CP, TROPI #### [facility] [address] [place] [address] Ppa Teacher: Michael Ordonez MD D-Dimer Teston 04-04-2023 D-Dimer Test 0.37 ug/mL FEU Normal 0.00-0.[address] [facility] Comment on above: Result Comment: When combined [...] with distal DVT. Performed By: #### M Damián, SALLY, CDP, CP, TROPI #### [facility] [address] [place] [address] Ppa Teacher: Michael Ordonez MD Magnesiumon 04-04-2023 Magnesium [Mass/Vol] 1.8 mg/dL Normal 1.6-2.6 [facility] Comment on above: Performed By: #### M G, SALLY, JUAN LUIS, CP, TROPI #### [facility] [address] [place] [address] Ppa Teacher: Michael Ordonez MD [id number] 04-04-2023 SARS-CoV-2 (COVID-19) RNA MARY+probe Ql (Unsp spec) Not detected Normal NOTDET [facility] Comment on above: Result Comment: Rapid NAAT: [...] management decisions. Fact sheet for Healthcare Providers: https://www.fda.gov/media/563927/download Fact sheet for Patients: https://www.fda.gov/media/509161/download Methodology: Isothermal Nucleic Acid Amplification Performed By: #### C OVRB #### [facility] [address] [place] [address] Ppa Teacher: Michael Ordonez MD Thyroid Stim. Horm.on 2022 Thyroid Stim. Horm. 0.88 uIU/mL Normal 0.30-5.00 [facility] Comment on above: Performed By: #### T SH #### [facility] [address] [place] [address] Ppa Teacher: Michael Ordonez MD Troponinon 04-04-2023 Troponin, High Sens 6 ng/L Normal 0-14 [facility] Comment on above: Result Comment: High Sensitivity Troponin values cannot be compared with other Troponin methodologies. Performed By: #### M G, DIME, CDP, CP, TROPI #### [facility] [address] [place], [place] [id number] Ppa Teacher: Michael Ordonez MD Urinalysis, Routineon 2022 Bilirubin, SemiQt,Ur Negative Normal NEG [facility] Comment on above: Performed By: #### U MICAO, UA #### [facility] [address] [place] [address] Dr[place], [place] [phone] Ppa Teacher: Michael Ordonez MD Blood, Urine 3+ Abnormal NEG [facility] Comment on above: Performed By: #### U MICAO, UA #### [facility] [address] [place] [address] Dr. [place], [place] [phone] Ppa Teacher: Michael Ordonez MD Clarity (U) Clear Normal CLEAR [facility] Comment on above: Performed By: #### U MICAO, UA #### [address] [place], [place] [phone] Ppa Teacher: Michael Ordonez MD Color (U) Yellow Normal YEL [facility] Comment on above: Performed By: #### U MICAO, UA #### [facility] [address] [place], [place] [phone] Ppa Teacher: Michael Ordonez MD Glucose Ql (U) Negative Normal NEG [facility] Comment on above: Performed By: #### U MICAO, UA #### [facility] [address] [place] [address] Dr[place], [place] [phone] Ppa Teacher: Michael Ordonez MD Ketones Ql (U) Negative Normal NEG [facility] Comment on above: Performed By: #### U MICAO, UA #### [facility] [address] [place] [address] Dr[place], [place] [phone] Ppa Teacher: Michael Ordonez MD Leukocyte esterase Test strip Ql (U) Negative Normal NEG [facility] Comment on above: Performed By: #### U MICAO, UA #### [address] [place], [place] [phone] Ppa Teacher: Michael Ordnoez MD Nitrite,Ur Negative Normal NEG [facility] Comment on above: Performed By: #### U MICAO, UA #### [facility] [address] [place] [address] Dr[place], [place] [phone] Ppa Teacher: Michael Ordonez MD PH,Ur 7.0 Normal 5.0-9.0 [facility] Comment on above: Performed By: #### U MICAO, UA #### [address] [place], [facility] Ppa Teacher: Michael Ordonez MD Protein Ql (U) Negative Normal NEG [facility] Comment on above: Performed By: #### U MICAO, UA #### [address] [place], [facility] Ppa Teacher: Michael Ordonez MD Spec. Meta,Ur 1.010 Normal 1.010-1.020 [facility] Comment on above: Performed By: #### U MICAO, UA #### [address] [place], [facility] Ppa Teacher: Michael Ordonez MD Urobilinogen,Ur Normal Normal 0.0-1.0 [facility] Comment on above: Performed By: #### U MICAO, UA #### [address] [place], [place] [phone] Ppa Teacher: Michael Ordonez MD Urinalysis,Microon 3 Bacteria TRACE Abnormal NONE [facility] Comment on above: Performed By: #### U MICAO, UA #### [facility] [address] [place] [address] Ppa Teacher: Michael Ordonez MD Epithelial cells LM Ql (Urine sed) 0 TO 2 Normal 0-25 [facility] Comment on above: Performed By: #### U MICAO, UA #### [facility] [address] [place] [address] Ppa Teacher: Michael Ordonez MD Urine RBC's 5 TO 10 Normal 0-2 [facility] Comment on above: Performed By: #### U MICAO, UA #### [facility] [address] [place] [address] Ppa Teacher: Michael Ordonez MD Urine WBC's None Normal 0-5 [facility] Comment on above: Performed By: #### U MICAO, UA #### [facility] [address] [place] [address] Ppa Teacher: Michael Ordonez MD XR CHEST PORTABLEon 04-04-20 XR CHEST PORTABLE EXAMINATION: ONE XRAY VIEW OF THE CHEST 04/04/2023 1:16 pm COMPARISON: None. HISTORY: ORDERING SYSTEM PROVIDED HISTORY: dizziness TECHNOLOGIST PROVIDED HISTORY: dizziness FINDINGS: Normal heart size and pulmonary vasculature. No focal consolidations, pleural effusions, or pneumothorax. IMPRESSION: No evidence of acute process. Interpreted by: Rudy Jacobo MD Signed by: Rudy Jacobo MD 04/04/23 Final result Normal [facility] CBC AUTO DIFFon 11-18-2022 BASO # 0.1 103/ul Normal 0.0-0.[address] [facility] Comment on above: Performed By: #### C BC #### [facility] [address] [place] [address] Dr. Laura Duarte Basophils/100 WBC (Bld) 0.8 % Normal 0.2-2.[address] [facility] Comment on above: Performed By: #### C BC #### [facility] [address] [place] [address] Dr. Laura Duarte EO # 1.0 103/ul Critically high 0.0-0.[address] [facility] Comment on above: Performed By: #### C BC #### [facility] [address] [place] [address] Dr. Laura Duarte Eosinophils/100 WBC (Bld) 11.5 % Critically high 0.9-7.[address] [facility] Comment on above: Performed By: #### C BC #### [facility] [address] [place] [address] Dr. Laura Duarte Erythrocyte distribution width (RBC) [Ratio] 13.2 % Normal 11.0-15.[address] [facility] Comment on above: Performed By: #### C BC #### [facility] [address] [place] [address] Dr. Laura Duarte Hematocrit (Bld) [Volume fraction] 37.6 % Normal 36.0-48.[address] [facility] Comment on above: Performed By: #### C BC #### [facility] [address] [place] [address] Dr. Laura Duarte Hemoglobin (Bld) [Mass/Vol] 12.3 g/dL Normal 12.0-16.[address] [facility] Comment on above: Performed By: #### C BC #### [facility] [address] [place] [address] Dr. Laura Duarte IG # 0.02 10e3/ul Normal 0.00-0.[address] [facility] Comment on above: Performed By: #### C BC #### [facility] [address] [place] [address] Dr. Laura Duarte IG % 0.2 % Normal 0.0-0.5 [facility] Comment on above: Performed By: #### C BC #### [facility] [address] [place] [address] Dr. Laura Duarte LYMPH # 2.7 103/ul Normal 1.2-3.[address] [facility] Comment on above: Performed By: #### C BC #### [facility] [address] [place] [address] Dr. Laura Duarte Lymphocytes/100 WBC (Bld) 30.3 % Normal 20.5-60.[address] [facility] Comment on above: Performed By: #### C BC #### [facility] [address] [place] [address] Dr. Laura Duarte MANUAL DIFF REQ NO Normal [facility] Comment on above: Performed By: #### C BC #### [facility] [address] [place] [address] Dr. Laura Duarte MCH (RBC) [Entitic mass] 27.9 pg Normal 26.7-34.[address] [facility] Comment on above: Performed By: #### C BC #### [facility] [address] [place] [address] Dr. Laura Duarte MCHC (RBC) [Mass/Vol] 32.7 g/dL Normal 29.9-35.[address] [facility] Comment on above: Performed By: #### C BC #### [facility] [address] [place] [address] Dr. Laura Duarte MCV (RBC) [Entitic vol] 85.3 fL Normal 81.0-99.[address] [facility] Comment on above: Performed By: #### C BC #### [facility] [address] [place] [address] Dr. Laura Duarte MONO # 0.5 103/ul Normal 0.3-0.[address] [facility] Comment on above: Performed By: #### C BC #### [facility] [address] [place] [address] Dr. Laura Duarte Monocytes/100 WBC (Bld) 5.0 % Normal 1.7-12.[address] [facility] Comment on above: Performed By: #### C BC #### [facility] [address] [place] [address] Dr. Laura Duarte NEUT # 4.7 103/ul Normal 1.4-6.[address] [facility] Comment on above: Performed By: #### C BC #### [facility] [address] [place] [address] Dr. Laura Duarte Neutrophils/100 WBC (Bld) 52.2 % Normal 43.0-75.0 [facility] Comment on above: Performed By: #### C BC #### [facility] [address] [place] [address] Dr. Laura Duarte Platelet mean volume (Bld) [Entitic vol] 9.9 fL Normal 9.5-13.[address] [facility] Comment on above: Performed By: #### C BC #### [facility] [address] [place] [address] Dr. Laura Duarte PLT 363 103/ul Normal 150-[address] [facility] Comment on above: Performed By: #### C BC #### [facility] [address] [place] [address] Dr. Laura Duarte RBC 4.41 106/ul Normal 4.20-5.[address] [facility] Comment on above: Performed By: #### C BC #### [facility] [address] [place] [address] Dr. Laura Duarte WBC 9.0 103/ul Normal 4.0-11.[address] [facility] Comment on above: Performed By: #### C BC #### [facility] [address] [place] [address] Dr. Laura Duarte PROF 14(COMP METB)on 023 Albumin [Mass/Vol] 3.7 g/dL Normal 3.4-5.0 [facility] Comment on above: Performed By: #### P TT, PT #### [facility] [address] [place] [address] Dr. Laura Duarte Albumin/Globulin [Mass ratio] 1.0 {ratio} Normal [facility] Comment on above: Performed By: #### P TT, PT #### [facility] [address] [place] [address] Dr. Laura Duarte ALP [Catalytic activity/Vol] 89 U/L Normal 46-[address] [facility] Comment on above: Performed By: #### P TT, PT #### [facility] [address] [place] [address] Dr. Laura Duarte ALT [Catalytic activity/Vol] 22 U/L Normal 14-[address] [facility] Comment on above: Performed By: #### P TT, PT #### [facility] [address] [address] [address] Laura Duarte Anion gap [Moles/Vol] 13.8 mmol/L Normal [facility] Comment on above: Performed By: #### P TT, PT #### [facility] [address] [address] [address] Laura Duarte AST [Catalytic activity/Vol] 13 U/L Critically low 15-[address] [facility] Comment on above: Performed By: #### P TT, PT #### [facility] [address] [address] [address] Laura Duarte Bilirubin [Mass/Vol] 0.2 mg/dL Normal 0.2-1.[address] [facility] Comment on above: Performed By: #### P TT, PT #### [facility] [address] [address] [address] Laura Duarte Calcium [Mass/Vol] 9.0 mg/dL Normal 8.5-10.1 [facility] Comment on above: Performed By: #### P TT, PT #### [facility] [address] [address] [address] Laura Duarte Chloride [Moles/Vol] 106 mmol/L Normal 98-[address] [facility] Comment on above: Performed By: #### P TT, PT #### [facility] [address] [address] [address] Laura Duarte CO2 [Moles/Vol] 27.3 mmol/L Normal 21.0-32.0 [facility] Comment on above: Performed By: #### P TT, PT #### [facility] [address] [address] [address] Laura Duarte Creatinine [Mass/Vol] 0.77 mg/dL Normal 0.55-1.[address] [facility] Comment on above: Performed By: #### P TT, PT #### [facility] [address] [address] [address] Laura Duarte EGFR-AF SAMOAN >60 Normal >=60 [facility] Comment on above: Performed By: #### P TT, PT #### [facility] [address] [address] [address] Laura Duarte EGFR-NON AF SAMOAN >60 Normal >=[address] [facility] Comment on above: Performed By: #### P TT, PT #### [facility] [address] [address] [address] Laura Duarte Globulin (S) [Mass/Vol] 3.8 g/dL Normal [facility] Comment on above: Performed By: #### P TT, PT #### [facility] [address] [address] [address] Laura Duarte Glucose [Mass/Vol] 95 mg/dL Normal 74-106 [facility] Comment on above: Performed By: #### P TT, PT #### [facility] [address] [place] [address] Dr. Laura Duarte Potassium [Moles/Vol] 4.1 mmol/L Normal 3.5-5.[address] [facility] Comment on above: Performed By: #### P TT, PT #### [facility] [address] [place] [address] Dr. Laura Duarte Protein [Mass/Vol] 7.5 g/dL Normal 6.4-8.2 [facility] Comment on above: Performed By: #### P TT, PT #### [facility] [address] [place] [address] Dr. Laura Duarte Sodium [Moles/Vol] 143 mmol/L Normal 136-145 [facility] Comment on above: Performed By: #### P TT, PT #### [facility] [address] [place] [address] Dr. Laura Duarte Urea nitrogen [Mass/Vol] 6.0 mg/dL Critically low 7.0-18.[address] [facility] Comment on above: Performed By: #### P TT, PT #### [facility] [address] [place] [address] Dr. Laura Duarte Urea nitrogen/Creatinine [Mass ratio] 7.8 mg/mg Normal [facility] Comment on above: Performed By: #### P TT, PT #### [facility] [address] [place] [address] Dr. Laura Duarte PROTIMEon 11-18-2022 INR Coag (PPP) [Relative time] {INR} Normal [facility] Comment on above: Performed By: #### P TT, PT #### [facility] [address] [place] [address] Dr. Laura Duarte INR GUIDELINES SEE BELOW Normal [facility] Comment on above: Result Comment: [place] RED INR: 2.0 - 3.0 CONDITIONS NOT LISTED BELOW 2.5 - 3.5 FOR PROSTHETIC HEART VALVE REPLACEMENT 2.5 - 3.5 RECURRENT THROMBOSIS Performed By: #### P TT, PT #### [facility] [address] [place] [address] Dr. Laura Duarte PT Coag (PPP) [Time] 9.8 s Normal 9.0-11.[address] [facility] Comment on above: Performed By: #### P TT, PT #### [facility] [address] [place] [address] Dr. Laura Duarte PTTon 11-18-2022 aPTT Coag (Bld) [Time] 34.4 s Normal 22.3-36.2 [facility] Comment on above: Performed By: #### P TT, PT #### [facility] [address] [place] [address] Dr. Laura Duarte XR CHEST 2 Von [...] by: LEONARD CERVANTES Date: 2022-11-18 12:[address] [facility] CBC AUTO DIFFon 03-30-2022 BASO # 0.1 103/ul Normal 0.0-0.[address] [facility] Comment on above: Performed By: #### P TT, PT #### [facility] [address] [place] [address] Dr. Laura Duarte Basophils/100 WBC (Bld) 0.6 % Normal 0.2-2.0 [facility] Comment on above: Performed By: #### P TT, PT #### [facility] [address] [place] [address] Dr. Laura Duarte EO # 0.7 103/ul Normal 0.0-0.7 [facility] Comment on above: Performed By: #### P TT, PT #### [facility] [address] [place] [address] Dr. Laura Duarte Eosinophils/100 WBC (Bld) 7.8 % Critically high 0.9-7.0 [facility] Comment on above: Performed By: #### P TT, PT #### [facility] [address] [place] [address] Dr. Laura Duarte Erythrocyte distribution width (RBC) [Ratio] 14.0 % Normal 11.0-15.0 [facility] Comment on above: Performed By: #### P TT, PT #### [facility] [address] [place] [address] Dr. Laura Duarte Hematocrit (Bld) [Volume fraction] 37.8 % Normal 36.0-48.[address] [facility] Comment on above: Performed By: #### P TT, PT #### [facility] [address] [place] [address] Dr. Laura Duarte Hemoglobin (Bld) [Mass/Vol] 12.2 g/dL Normal 12.0-16.0 [facility] Comment on above: Performed By: #### P TT, PT #### [facility] [address] [place] [address] Dr. Laura Duarte IG # 0.02 10e3/ul Normal 0.00-0.03 [facility] Comment on above: Performed By: #### P TT, PT #### [facility] [address] [place] [address] Dr. Laura Duarte IG % 0.2 % Normal 0.0-0.5 [facility] Comment on above: Performed By: #### P TT, PT #### [facility] [address] [place] [address] Dr. Laura Duarte LYMPH # 2.4 103/ul Normal 1.2-3.[address] [facility] Comment on above: Performed By: #### P TT, PT #### [facility] [address] [place] [address] Dr. Laura Duarte Lymphocytes/100 WBC (Bld) 26.2 % Normal 20.5-60.[address] [facility] Comment on above: Performed By: #### P TT, PT #### [facility] [address] [place] [address] Dr. Laura Duarte MANUAL DIFF REQ NO Normal [facility] Comment on above: Performed By: #### P TT, PT #### [facility] [address] [place] [address] Dr. Laura Duarte MCH (RBC) [Entitic mass] 27.6 pg Normal 26.7-34.[address] [facility] Comment on above: Performed By: #### P TT, PT #### [facility] [address] [place] [address] Dr. Laura Duarte MCHC (RBC) [Mass/Vol] 32.3 g/dL Normal 29.9-35.[address] [facility] Comment on above: Performed By: #### P TT, PT #### [facility] [address] [place] [address] Dr. Laura Duarte MCV (RBC) [Entitic vol] 85.5 fL Normal 81.0-99.[address] [facility] Comment on above: Performed By: #### P TT, PT #### [facility] [address] [place] [address] Dr. Laura Duarte MONO # 0.6 103/ul Normal 0.3-0.[address] [facility] Comment on above: Performed By: #### P TT, PT #### [facility] [address] [place] [address] Dr. Laura Duarte Monocytes/100 WBC (Bld) 6.5 % Normal 1.7-12.[address] [facility] Comment on above: Performed By: #### P TT, PT #### [facility] [address] [address] [address] Laura Duarte NEUT # 5.4 103/ul Normal 1.4-6.[address] [facility] Comment on above: Performed By: #### P TT, PT #### [facility] [address] [address] [address] Laura Duarte Neutrophils/100 WBC (Bld) 58.7 % Normal 43.0-75.[address] [facility] Comment on above: Performed By: #### P TT, PT #### [facility] [address] [place] [address] Dr. Laura Duarte Platelet mean volume (Bld) [Entitic vol] 11.6 fL Normal 9.5-13.[address] [facility] Comment on above: Performed By: #### P TT, PT #### [facility] [address] [place] [address] Dr. Laura Duarte PLT 321 103/ul Normal 150-[address] [facility] Comment on above: Performed By: #### P TT, PT #### [facility] [address] [place] [address] Dr. Laura Duarte RBC 4.42 106/ul Normal 4.20-5.[address] [facility] Comment on above: Performed By: #### P TT, PT #### [facility] [address] [place] [address] Dr. Laura Duarte WBC 9.3 103/ul Normal 4.0-11.[address] [facility] Comment on above: Performed By: #### P TT, PT #### [facility] [address] [place] [address] Dr. Laura Duarte GLYCOHEMOGLOBIN A1Con 2021 ADA RECOMMENDATION SEE BELOW Normal [facility] Comment on above: Result Comment: ADA RECOMMENDED LIMIT 4.0 - 6.0 ADA THERAPEUTIC TARGET < 7.0 ACTION SUGGESTED > 7.0 Performed By: #### A 1C #### [facility] [address] [place] [address] Dr. Laura Duarte Glucose [Mass/Vol] 111 mg/dL Normal [facility] Comment on above: Performed By: #### A 1C #### [facility] [address] [address] [address] Laura Duarte HbA1c (Bld) [Mass fraction] 5.5 % Normal 4.5-6.[address] [facility] Comment on above: Performed By: #### A 1C #### [facility] [address] [address] [address] Laura Duarte LIPID PROFILEon 03-30-2022 CHOL-HDL RATIO NORM SEE BELOW Normal [facility] Comment on above: Result Comment: 3.3 - 4.4 LOW RISK 4.4 - 7.1 AVERAGE RISK 7.1 - 11.0 MODERATE RISK >11.0 HIGH RISK Performed By: #### T SH, LIVER, LIPID, BMP #### [facility] [address] [address] [address] Laura Duarte Cholesterol [Mass/Vol] 174 mg/dL Normal <=200 [facility] Comment on above: Performed By: #### T SH, LIVER, LIPID, BMP #### [facility] [address] [address] [address] Laura Duarte Cholesterol in HDL [Mass/Vol] 49 mg/dL Normal 40-[address] [facility] Comment on above: Performed By: #### T SH, LIVER, LIPID, BMP #### [facility] [address] [address] [address] Laura Duarte Cholesterol in LDL [Mass/Vol] 113.2 mg/dL Normal [facility] Comment on above: Performed By: #### T SH, LIVER, LIPID, BMP #### [facility] [address] [address] [address] Laura Duarte Cholesterol.total/Chol esterol in HDL [Mass ratio] 3.6 {ratio} Normal [facility] Comment on above: Performed By: #### T SH, LIVER, LIPID, BMP #### [facility] [address] [address] [address] Laura Duarte HDL NORMAL > or = 60 mg/dl - LOW CARDIOVASCULAR RISK <40 mg/dl - HIGH CARDIOVASCULAR RISK Normal [facility] Comment on above: Performed By: #### T SH, LIVER, LIPID, BMP #### [facility] [address] [address] [address] Laura Duarte LDL CALC NORMAL SEE BELOW Normal [facility] Comment on above: Result Comment: <100 mg/dl OPTIMAL 100 - 129 mg/dl NEAR OR ABOVE OPTIMAL 130 - 159 mg/dl BORDERLINE HIGH 160 - 189 mg/dl HIGH >190 mg/dl VERY HIGH Performed By: #### T SH, LIVER, LIPID, BMP #### [facility] [address] [address] [address] Laura Duarte Triglyceride [Mass/Vol] 59 mg/dL Normal <=150 [facility] Comment on above: Performed By: #### T SH, LIVER, LIPID, BMP #### [facility] [address] [address] [address] Laura Duarte VLDL CALC 11.8 mg/dL Normal [facility] Comment on above: Performed By: #### T SH, LIVER, LIPID, BMP #### [facility] [address] [address] [address] Laura Duarte LIVER PROFILEon 03-30-2022 Albumin [Mass/Vol] 3.6 g/dL Normal 3.4-5.0 [facility] Comment on above: Performed By: #### T SH, LIVER, LIPID, BMP #### [facility] [address] [address] [address] Laura Duarte Albumin/Globulin [Mass ratio] 1.0 {ratio} Normal [facility] Comment on above: Performed By: #### T SH, LIVER, LIPID, BMP #### [facility] [address] [address] [address] Laura Duarte ALP [Catalytic activity/Vol] 76 U/L Normal 46-116 [facility] Comment on above: Performed By: #### T SH, LIVER, LIPID, BMP #### [facility] [address] [address] [address] Laura Duarte ALT [Catalytic activity/Vol] 19 U/L Normal 14-[address] [facility] Comment on above: Performed By: #### T SH, LIVER, LIPID, BMP #### [facility] [address] [place] [address] Dr. Laura Duarte AST [Catalytic activity/Vol] 11 U/L Critically low 15-[address] [facility] Comment on above: Performed By: #### T SH, LIVER, LIPID, BMP #### [facility] [address] [place] [address] Dr. Laura Duarte BILI, CONJUGATED 0.1 mg/dL Normal 0.0-0.2 [facility] Comment on above: Performed By: #### T SH, LIVER, LIPID, BMP #### [facility] [address] [place] [address] Dr. Laura Duarte Bilirubin [Mass/Vol] 0.3 mg/dL Normal 0.2-1.[address] [facility] Comment on above: Performed By: #### T SH, LIVER, LIPID, BMP #### [facility] [address] [place] [address] Dr. Laura Duarte Globulin (S) [Mass/Vol] 3.5 g/dL Normal [facility] Comment on above: Performed By: #### T SH, LIVER, LIPID, BMP #### [facility] [address] [place] [address] Dr. Laura Duarte Protein [Mass/Vol] 7.1 g/dL Normal 6.4-8.2 [facility] Comment on above: Performed By: #### T SH, LIVER, LIPID, BMP #### [facility] [address] [place] [address] Dr. Laura Duarte PROF CHEM 8 (BAS METB)on Anion gap [Moles/Vol] 12.4 mmol/L Normal [facility] Comment on above: Performed By: #### T SH, LIVER, LIPID, BMP #### [facility] [address] [place] [address] Dr. Laura Duarte Calcium [Mass/Vol] 9.1 mg/dL Normal 8.5-10.1 [facility] Comment on above: Performed By: #### T SH, LIVER, LIPID, BMP #### [facility] [address] [address] [address] Laura Duarte Chloride [Moles/Vol] 106 mmol/L Normal 98-107 [facility] Comment on above: Performed By: #### T SH, LIVER, LIPID, BMP #### [facility] [address] [address] [address] Laura Duarte CO2 [Moles/Vol] 24.5 mmol/L Normal 21.0-32.0 [facility] Comment on above: Performed By: #### T SH, LIVER, LIPID, BMP #### [facility] [address] [address] [address] Laura Duarte Creatinine [Mass/Vol] 0.70 mg/dL Normal 0.55-1.[address] [facility] Comment on above: Performed By: #### T SH, LIVER, LIPID, BMP #### [facility] [address] [place] [address] Dr. Laura Duarte EGFR-AF SAMOAN >60 Normal >=60 [facility] Comment on above: Performed By: #### T SH, LIVER, LIPID, BMP #### [facility] [address] [place] [address] Dr. Laura Duarte EGFR-NON AF SAMOAN >60 Normal >=[address] [facility] Comment on above: Performed By: #### T SH, LIVER, LIPID, BMP #### [facility] [address] [place] [address] Dr. Laura Duarte Glucose [Mass/Vol] 94 mg/dL Normal 74-106 [facility] Comment on above: Performed By: #### T SH, LIVER, LIPID, BMP #### [facility] [address] [address] [address] Laura Duarte Potassium [Moles/Vol] 3.9 mmol/L Normal 3.5-5.[address] [facility] Comment on above: Performed By: #### T SH, LIVER, LIPID, BMP #### [facility] [address] [address] [address] Laura Duarte Sodium [Moles/Vol] 139 mmol/L Normal 136-145 [facility] Comment on above: Performed By: #### T SH, LIVER, LIPID, BMP #### [facility] [address] [address] [address] Laura Duarte Urea nitrogen [Mass/Vol] 7.0 mg/dL Normal 7.0-18.[address] [facility] Comment on above: Performed By: #### T SH, LIVER, LIPID, BMP #### [facility] [address] [address] [address] Laura Duarte Urea nitrogen/Creatinine [Mass ratio] 10.0 mg/mg Normal [facility] Comment on above: Performed By: #### T SH, LIVER, LIPID, BMP #### [facility] [address] [address] [address] Laura Duarte TSHon 03-30-2022 TSH 1.039 uIU/mL Normal 0.358-3.740 [facility] Comment on above: Performed By: #### T SH, LIVER, LIPID, BMP #### [facility] [address] [address] [address] Laura Duarte [facility] SARS-CoV-2 (COVID-19) RNA MARY+probe Ql (Unsp spec) Not detected Normal NOT DETECTED [facility] Comment on above: Result Comment: When [...] for this test is supported by the [place] of Health and Human Service's declaration that [...] Performed By: #### P TT, PT #### [facility] [address] [address] [address] Laura Duarte XR CHEST 1 Von [...] MATEUS BUTCHER Date: 2022-02-24 23:55 Normal [facility] COVID-19, RapidOrdered By: Sonu Srinivasan on 02-13-2021 SARS-CoV-2 (COVID-19) RNA MARY+probe Ql (Unsp spec) Not detected Not Detected [email or web address] Phone: Comment on above: Rapid NAAT: The [...] management decisions. Fact sheet for Healthcare Providers: https://www.fda.gov/media/208446/download Fact sheet for Patients: https://www.fda.gov/media/269008/download Methodology: Isothermal Nucleic Acid Amplification Specimen Description .NASOPHARYNGEAL SWAB [email or web address] Phone: [email or web address] Phone: CBC Auto DifferentialOrdered By: Avinash Kee on 10-25-2020 Absolute Eos # <0.03 [employer] Work Phone: Absolute Immature Granulocyte 0.04 [email or web address] Phone: Absolute Lymph # 2.18 [facility] Work Phone: Absolute [place] # 0.75 [employer] [facility] Work Phone: Basophils (Bld) [#/Vol] 10*3/uL [employer] Work Phone: Basophils/100 WBC (Bld) 0 % 0 - 2 % [employer] Work Phone: Differential Type NOT REPORTED [email or web address] Phone: Eosinophils/100 WBC (Bld) 0 % Low 1 - 4 % [email or web address] Phone: Hematocrit (Bld) [Volume fraction] 43.1 % 36.3 - 47.1 % [email or web address] Phone: Hemoglobin.gastrointes tinal spec 1 Ql (Stl) 13.9 g/dL 11.9 - 15.1 g/dL [employer] Work Phone: Immature granulocytes/100 WBC (Bld) 1 % High 0 [email or web address] Phone: Interpretation and review of laboratory results Abnormal [email or web address] Phone: Lymphocytes/100 WBC (Bld) 29 % 24 - 43 % [email or web address] Phone: MCH (RBC) [Entitic mass] 27.4 pg 25.2 - 33.5 pg [employer] Work Phone: MCHC (RBC) [Mass/Vol] 32.3 g/dL 28.4 - 34.8 g/dL [email or web address] Phone: MCV (RBC) [Entitic vol] 84.8 fL 82.6 - 102.9 fL [email or web address] Phone: Monocytes/100 WBC (Bld) 10 % 3 - 12 % [email or web address] Phone: NRBC Automated 0.0 0.0 per 100 WBC [email or web address] Phone: Platelet distribution width (Bld) [Ratio] 13.3 % 11.8 - 14.4 % [email or web address] Phone: Platelet Estimate NOT REPORTED [email or web address] Phone: Platelet mean volume (Bld) [Entitic vol] 9.7 fL 8.1 - 13.5 fL [email or web address] Phone: Platelets (Bld) [#/Vol] 282 10*3/uL [email or web address] Phone: RBC (Bld) [#/Vol] 5.08 10*6/uL 3.95 - 5.1 1 m/uL [email or web address] Phone: RBC (Bld) [#/Vol] NOT REPORTED [email or web address] Phone: Segmented neutrophils/100 WBC (Bld) 60 % 36 - 65 % [employer] Work Phone: Segs Absolute 4.53 [employer] Work Phone: WBC (Bld) [#/Vol] 7.5 10*3/uL [email or web address] Phone: WBC (Bld) [#/Vol] NOT REPORTED [email or web address] Phone: Comprehensive Metabolic Pane l w/ Reflex to MGOrdered By: Avinash Kee on 10-25-2020 Albumin [Mass/Vol] 3.9 g/dL 3.5 - 5.2 g/dL [email or web address] Phone: Albumin/Globulin [Mass ratio] 1.2 {ratio} [email or web address] Phone: ALP (Bld) [Catalytic activity/Vol] 78 U/L 35 - 104 U/L [email or web address] Phone: ALT [Catalytic activity/Vol] 34 U/L High 5 - 33 U/L [employer] Work Phone: Anion gap [Moles/Vol] 13 mmol/L 9 - 17 mmol/L [email or web address] Phone: AST [Catalytic activity/Vol] 35 U/L High <32 [email or web address] Phone: Bilirubin [Mass/Vol] 0.23 mg/dL Low 0.3 - 1 .2 mg/dL [email or web address] Phone: Calcium [Mass/Vol] 9.2 mg/dL 8.6 - 10. 4 mg/dL [email or web address] Phone: Chloride [Moles/Vol] 99 mmol/L 98 - 10 7 mmol/L [email or web address] Phone: CO2 [Moles/Vol] 24 mmol/L 20 - 31 mmol/L [email or web address] Phone: Creatinine [Mass/Vol] 0.73 mg/dL 0.50 - 0.90 mg/dL [email or web address] Phone: Free PSA/Total PSA [Mass fraction] 7.1 g/dL 6.4 - 8.3 g/dL [email or web address] Phone: GFR >60 >60 mL/min [facility] Phone: GFR Non- >60 >60 mL/min [email or web address] Phone: Glucose [Mass/Vol] 119 mg/dL High 70 - 99 mg/dL [email or web address] Phone: Interpretation and review of laboratory results Abnormal [email or web address] Phone: Potassium [Moles/Vol] 3.3 mmol/L Low 3.7 - 5.3 mmol/L [email or web address] Phone: Sodium [Moles/Vol] 136 mmol/L 135 - 144 mmol/L [email or web address] Phone: Urea nitrogen (BldV) [Mass/Vol] 11 mg/dL 6 - 20 mg/dL [email or web address] Phone: Urea nitrogen/Creatinine (Bld) [Mass ratio] 15 [email or web address] Phone: Laboratory - Chemistry and C hemistry - challengeOrdered By: Avinash Kee on 10-25-2020 GFR/1.73 sq M.predicted MDRD (S/P/Bld) [Vol rate/Area] [email or web address] Phone: Comment on above: Average GFR for 20-2 9 years old: 116 mL/min/1.73sq m Chronic Kidney Disease: <60 mL/min/1.73sq m Kidney failure: <15 mL/min/1.73sq m eGFR calculated using average adult body mass. Additional eGFR calculator available at: http://www.[employer]_crcl_2012.htm Stage 1: Some kidney damage normal GFR Stage 2: Mild kidney damage GFR 60-89 Stage 3: Moderate kidney damage GFR 30-59 Stage 4: Severe kidney damage GFR 15-29 Stage 5: Severe kidney damage GFR <15 ESRD - chronic treatment by dialysis or transplant COVID-19, Rapidon 10-20-2020 Interpretation and review of laboratory results Abnormal [email or web address] Phone: SARS-CoV-2, Rapid DETECTED Abnormal Not Detected [email or web address] Phone: Comment on above: Rapid NAAT: The [...] this assay. Fact sheet for Healthcare Providers: https://www.fda.gov/media/988321/download Fact sheet for Patients: https://www.fda.gov/media/307639/download Methodology: Isothermal Nucleic Acid Amplification Results reported to the appropriate Health Department Specimen Description .NASOPHARYNGEAL SWAB [email or web address] Phone: XR CHEST PORTABLEon 10-20-19 No acute intrathoracic pathology. [email or web address] Phone: EXAMINATION: ONE XRAY VIEW OF THE CHEST 10/19/2020 11:23 pm COMPARISON: 06/10/2015 HISTORY: ORDERING SYSTEM PROVIDED HISTORY: shortness of breath TECHNOLOGIST PROVIDED HISTORY: shortness of breath FINDINGS: The cardiomediastinal silhouette and hilar contours are normal. The lungs are clear with no focal consolidation, pleural effusion or pneumothorax. The overlying soft tissue and osseous structures appear unremarkable. [email or web address] Phone: Loyd, pn Incoming Radiant Results From [employer] - 10/19/2020 11:48 PM EDT EXAMINATION: ONE [...] appear unremarkable. IMPRESSION: No acute intrathoracic pathology. [email or web address] Phone: Vital Signs Date Time Vital Sign Value Performing Clinician Facility 04-21-2023 10:100400 Body height 171.45 cm Maribel Lewmond Other [facility] Other 04-21-2023 10:10-0400 Body mass index (BMI) [Ratio] 46.29 kg/m2 Maribel Lewmond Other [facility] Other 04-21-2023 10:10-040 Body temperature 97.2 [degF] Maribel Lewmond Other [facility] Other 04-21-2023 10:10-040 Body weight 136.08 kg Maribel Lewmond Other [facility] Other 04-21-2023 10:10-0400 Diastolic blood pressure 88 mm[Hg] Maribel Flanagan Other [facility] Other 04-21-2023 10:10-0400 Respiratory rate 17 /min Maribel Flanagan Other [facility] Other 04-21-2023 10:10-0400 SaO2% (BldA) [Mass fraction] 98 % Maribel Flanagan Other [facility] Other 04-21-2023 10:10-0400 Systolic blood pressure 156 mm[Hg] Maribel Flanagan Other [facility] Other 11-02-2021 14:15-0400 Diastolic blood pressure 96 mm[Hg] Michael Wiseman MD Work Phone: [employer] 11-02-2021 14:15-0400 Heart rate 99 /min Michael Wiseman MD Work Phone: [employer] 11-02-2021 14:15-0400 Systolic blood pressure 141 mm[Hg] Michael Wiseman MD Work Phone: [employer] 11-02-2021 14:13-0400 Respiratory rate 16 /min Michael Wiseman MD Work Phone: [employer] 02-18-2021 20:25-0400 Body temperature 97.2 [degF] Enrique Srinivasan MD Work Phone: [employer] Work Phone: 02-18-2021 20:25-0400 Diastolic blood pressure 84 mm[Hg] Enrique Srinivasan MD Work Phone: [employer] Work Phone: 02-18-2021 20:25-0400 Heart rate 102 /min Enrique Srinivasan MD Work Phone: [employer] Work Phone: 02-18-2021 20:25-0400 Respiratory rate 16 /min Enrique Srinivasan MD Work Phone: [employer] Work Phone: 02-18-2021 20:25-0400 SaO2% (BldA) [Mass fraction] 96 % Enrique Srinivasan MD Work Phone: [employer] Work Phone: 02-18-2021 20:25-0400 Systolic blood pressure 128 mm[Hg] Enrique Srinivasan MD Work Phone: [employer] Work Phone: 02-13-2021 22:45-0400 Diastolic blood pressure 87 mm[Hg] Enrique Srinivasan MD Work Phone: [employer] Work Phone: 02-13-2021 22:45-0400 Systolic blood pressure 186 mm[Hg] Enrique Srinivasan MD Work Phone: [employer] Work Phone: 02-13-2021 21:55-0400 Body height 172.7 cm Enrique Srinivasan MD Work Phone: [employer] Work Phone: 02-13-2021 21:55-0400 Body mass index (BMI) [Ratio] 45.61 kg/m2 Enrique Srinivasan MD Work Phone: [employer] Work Phone: 02-13-2021 21:55-0400 Body weight 136.08 kg Enrique Srinivasan MD Work Phone: [employer] Work Phone: 02-13-2021 21:55-0400 Heart rate 103 /min Enrique Srinivasan MD Work Phone: [employer] Work Phone: 02-13-2021 21:55-0400 Respiratory rate 18 /min Enrique Srinivasan MD Work Phone: [employer] Work Phone: 02-13-2021 21:55-0400 SaO2% (BldA) [Mass fraction] 98 % Enrique Srinivasan MD Work Phone: [employer] Work Phone: 12-16-2020 23:20-0400 Diastolic blood pressure 89 mm[Hg] Adi Andes DO Work Phone: [employer] Work Phone: 12-16-2020 23:20-0400 SaO2% (BldA) [Mass fraction] 95 % Adi Andes DO Work Phone: [employer] Work Phone: 12-16-2020 23:20-0400 Systolic blood pressure 163 mm[Hg] Adi Andes DO Work Phone: [employer] Work Phone: 12-16-2020 22:25-0400 Body mass index (BMI) [Ratio] 46.98 kg/m2 Adi Andes DO Work Phone: [employer] Work Phone: 12-16-2020 22:25-0400 Body temperature 97.3 [degF] Adi Andes DO Work Phone: [employer] Work Phone: 12-16-2020 22:25-0400 Body weight 140.16 kg Adi Andes DO Work Phone: [employer] Work Phone: 12-16-2020 22:25-0400 Heart rate 101 /min Adi Andes DO Work Phone: [employer] Work Phone: 10-26-2020 00:30-0400 SaO2% (BldA) [Mass fraction] 97 % Avinash Kee MD Work Phone: [employer] Work Phone: 10-26-2020 00:00-0400 Diastolic blood pressure 56 mm[Hg] Avinash Kee MD Work Phone: [employer] Work Phone: 10-26-2020 00:00-0400 Systolic blood pressure 145 mm[Hg] Avinash Kee MD Work Phone: [employer] Work Phone: 10-25-2020 22:11-0400 Body temperature 97.2 [degF] Avinash Kee MD Work Phone: [employer] Work Phone: 10-25-2020 22:11-0400 Heart rate 101 /min Avinash Kee MD Work Phone: [employer] Work Phone: 10-25-2020 22:11-0400 Respiratory rate 17 /min Avinash Kee MD Work Phone: [employer] Work Phone: 10-20-2020 00:40-0400 Body Temperature 97.5 [degF] [employer] Work Phone: 10-20-2020 00:40-0400 BP Diastolic 90 mm[Hg] [employer] Work Phone: 10-20-2020 00:40-0400 BP Systolic 103 mm[Hg] [employer] Work Phone: 10-20-2020 00:40-0400 Pulse (Heart Rate) 103 /min [employer] Work Phone: 10-20-2020 00:40-0400 Pulse Oximetry 95 % [employer] Work Phone: 10-20-2020 00:40-0400 Respiratory Rate 22 /min [employer] Work Phone: 10-19-2020 23:06-0400 BMI (Body Mass Index) 42.57 kg/m2 [employer] Phone: 10-19-2020 23:06-0400 Body weight 127.01 kg [employer] Work Phone: Encounters Encounter Date Encounter Type Care Provider Facility Start: 07-27-2023 End: 07-27-2023 ambulatory ZORAN FLORES Not Available Start: 07-18-2023 End: 07-18-2023 ambulatory HANY ELLISON Not Available Start: 07-11-2023 End: 07-12-2023 ambulatory MARYANA AMADOR Not Available Start: 07-04-2023 End: 07-04-2023 ambulatory Jeremiah Chen Other [facility] Other Start: 07-04-2023 Telephone encounter Jeremiah Huggins ck [facility] Start: 04-21-2023 Office outpatient ne w 10 minutes Maribel Flanagan [facility] Start: 04-21-2023 End: 04-21-2023 ambulatory MD Zoran Flores Work Phone: [facility] Other Start: 04-21-2023 End: 04-21-2023 Patient encounter procedure MD Zoran Flores Work Phone: [facility] Work Phone: Start: 04-18-2023 Refill Michael dominguez MD Work Phone: [facility] (ENT) Comment on above: Refill Start: 04-04-2023 Emergency department patient visit ZORAN FLORES [facility] Start: 11-28-[address] DOCTOR JIMENEZ Facility :[facility] Start: 11-18-2022 End: 11-19-[address] ZORAN FLORES Facility:[facility] Start: 10-14-2022 Orders Only Michael dominguez MD Work Phone: [facility] (ENT) Comment on above: Referral to Speciali st Start: 08-07-2022 Refill Michael dominguez MD Work Phone: [facility] (ENT) Comment on above: Refill Start: 05-17-2022 Refill Michael dominguez MD Work Phone: [facility] (ENT) Comment on above: Refill Start: 04-01-2022 Encounter for genera l adult medical examination without abnormal findings DR ZORAN FLORES [facility] Start: 03-30-2022 End: 03-31-[address] ZORAN FLORES Facility:[facility] Start: 03-30-2022 End: 03-31-2022 Encounter for general adult medical examination without abnormal findings DR ZORAN FLORES Facility:[facility] Start: 02-25-2022 End: 02-25-[address] ZORAN FLORES Facility:[facility] Start: 11-02-2021 End: 11-02-2021 Office outpatient visit 25 minutes Michael Wiseman MD Work Phone: [facility] (ENT) Comment on above: Chronic pansinusitis (Primary Dx); Anosmia; Multiple nasal polyps Start: 02-18-2021 End: 02-18-2021 Emergency department patient visit Enrique Srinivasan MD Work Phone: [facility] ED Comment on above: Chronic sinusitis, u nspecified location (Primary Dx); Post-op pain Start: 02-13-2021 End: 02-13-2021 Emergency department patient visit Enrique Srinivasan MD Work Phone: [facility] ED Comment on above: Close exposure to [place] VID-19 virus (Primary Dx) Start: 12-16-2020 End: 12-16-2020 Emergency department patient visit Adi Berg DO Work Phone: [facility] ED Comment on above: Mild intermittent as thma with exacerbation (Primary Dx) Start: 10-25-2020 End: 10-26-2020 Emergency department patient visit Avinash Kee MD Work Phone: [facility] ED Comment on above: Nausea vomiting and diarrhea (Primary Dx); COVID-19 virus infection Start: 10-19-2020 End: 10-20-2020 Emergency department patient visit Enrique Srinivasan Work Phone: [facility] ED Comment on above: COVID-19 (Primary Dx [...] 2) Shingles (RZV) Vaccine (1 of 2) [facility] Start: 10-16-2031 Tetanus vaccination [facility] Start: 04-25-2023 End: 04-25-2023 Patient encounter procedure 04/25/2023 3:00 PM EDT Office Visit [facility] (ENT) [address] [place] [address] Michael Wiseman MD [address] [place] [address] [facility] (ENT) Start: 03-10-2023 Influenza vaccination Influenza Vacc ine (#1) [facility] Start: 04-09-2022 Influenza vaccination Influenza Vacc ine (#1) [facility] Start: 12-07-2021 End: 12-07-2021 Patient encounter procedure 12/07/2021 Office Visit Ent-Otolaryngology Michael Wiseman MD [address] [place] [address] [facility] (ENT) Start: 03-10-2021 Influenza vaccination [facility] [employer] Phone: Start: 02-25-2020 DTaP/Tdap/Td vaccine (3 - Td or Tdap) DTaP/Tdap/Td vaccine (3 - Td or Tdap) [facility] [employer] Phone: Start: 02-25-2020 DTaP/Tdap/Td vaccine (3 - Td) DTaP/Tdap/Td vaccine (3 - Td) [facility] Phone: Start: 2018 Screening for malignant neoplasm of cervix [facility] Start: 2015 Hepatitis C screening Hepatitis C An tibody [facility] Start: 2015 Screening for Chlamydia trachomatis STI Screening (Age 18-24) [facility] Start: 2013 COVID-19 Vaccine (1) COVID-19 Vaccin e (1) [facility] Phone: Start: 2013 Screening for Chlamydia trachomatis Chlamydia screen [facility] Phone: Start: 02-23-2012 HIV screening [facility] screen [facility] Work Phone: Start: 2009 COVID-19 Vaccine (1) COVID-19 Vaccin e (1) [email or web address] Phone: Start: 2002 COVID-19 Vaccine (1) COVID-[facility]in [facility]) [facility] Start: 1998 Varicella vaccine (1 of 2 - 2-dose childhood series) Varicella vaccine (1 of 2 - 2-dose childhood series) [email or web address] Phone: Start: 1997 COVID-19 Vaccine (#1) COVID-19 Vacci ne (#1) [facility] Start: 1997 Hepatitis C screening Hepatitis C sc reen [email or web address] Phone: End: 10-25-2020 Magnesium [Mass/volume] in Serum or Plasma Magnesium Lab Routine Once for 1 Occurrences starting 10/25/2020 until 10/25/2020 [email or web address] Phone: Comment on above: Once for 1 Occurrenc es starting 10/25/2020 until 10/25/2020 Magnesium [Mass/volume] in Serum or Plasma Magnesium Lab Routine 10/25/2020 11:08 PM EDT [employer] Work Phone: Immunizations Immunization Date Immunization Notes Care Provider Fa cili 10-15-2021 tetanus toxoid, redu anastacio diphtheria toxoid, and acellular pertussis vaccine, adsorbed [facility] 07-19-2018 Human Papillomavirus 9-valent vaccine Michael Wiseman MD Work Phone: [facility] 03-23-2018 Human Papillomavirus 9-valent vaccine Michael Wiseman MD Work Phone: [facility] 01-16-2018 Human Papillomavirus 9-valent vaccine Michael Wiseman MD Work Phone: [facility] 02-24-2010 tetanus toxoid, redu anastacio diphtheria toxoid, and acellular pertussis vaccine, adsorbed Michael Wiseman MD Work Phone: [facility] 05-31-2005 influenza, seasonal, injectable Michael Wiseman MD Work Phone: [facility] 05-31-2005 influenza virus vacc ine, unspecified formulation Michael Wiseman MD Work Phone: [facility] 04-30-2003 influenza, seasonal, injectable Michael Wiseman MD Work Phone: [facility] 05-07-2002 influenza, seasonal, injectable Michael Wiseman MD Work Phone: [facility] 06-08-2001 diphtheria, tetanus toxoids and acellular pertussis vaccine, unspecified formulation Michael Wiseman MD Work Phone: [facility] 06-08-2001 measles, mumps and r ubella virus vaccine Michael Wiseman MD Work Phone: [facility] 06-08-2001 poliovirus vaccine, inactivated Michael Wiseman MD Work Phone: [facility] Payers Date Payer Category Payer Self-pay [id number] 2022 Medicaid [id number] 2018 Medicaid [place] [employer] [employer] [id number] 2018-Present [phone] [address] [place] [address] Medicaid HMO [id number] 2016 Unknown [id number] 2013 Unknown ANTHEM - BLUE CR OSS BLUE CROSS/HMO,PPO,POS [id number] 2013-Present [address] [place] [address] PPO [id number] 1997 Unknown [id number] 1997 Unknown [id number] 1997 Unknown [id number] 1997 Unknown [id number] [id number] 1997 Unknown [id number] [id number] 1997 Unknown [id number] [id number] 1997 Unknown [id number] [id number] 1997 Unknown [id number] 1997 Unknown [id number] 1959 Unknown [id number] 1959 Unknown [id number] Unknown [id number] Unknown [id number] Social History Date Type Detail Facility Start: 01-18-2020 End: 10-19-2020 Tobacco smoking status [facility] Never smoker [email or web address] Phone: Start: 10-23-2018 End: 10-19-2020 Tobacco use and exposure Never used [email or web address] Phone: Start: 10-19-2020 End: 02-13-2021 Alcohol intake Current non-drinker of alcohol (finding) [email or web address] Phone: Start: 1995 Sex Assigned At Not on file [email or web address] Phone: Exposure to SARS-CoV -2 (event) Yes [employer] Work Phone: Exposure to SARS-CoV -2 (event) Not sure [employer] Start: 11-02-2021 Alcohol intake Current drinker of alcohol (finding) [facility] Start: 11-23-2018 History SDOH Alcohol Comment OCC [facility] Start: 1995 Sex Assigned At Female [facility] Start: 09-13-2021 Gender identity Identifies as female gender (finding) [facility] Start: 09-13-2021 Sexual orientation Female homosexual (finding) [facility] Sex Assigned At Sex Assigned At Bir th [facility] Other Clinical Notes 02-13-2021 to 04-21-2023 Note Date & Type Note Facility 04-21-2023 [...] no improvement in 5 to 7 days [facility] Other 04-07-2023 Radha is asking if an outside referral can be sent to dr. Shankar in [place]. He specializes in Samter's triad but requires a referral. The fax number is [phone] and demographics will need to be sent as well. I would be happy to send the referral once it is available. Thank you, Callum [facility] [id number] Telephone encounter Note* Telephone Encounter - Hansa Quiroga - 10/14/2022 3:08 PM EDT Magdalena is asking if an outside referral can be sent to dr. Shankar in [place]. He specializes in Samter s triad but requires a referral. The fax number is [phone] and demographics will need to be sent as well. I would be happy to send the referral once it is available. Thank you, Zoie [id number] Miscellaneous Notes* Telephone Encounter - Hansa Quiroga - 10/14/2022 3:08 PM EDT Magdalena is asking if an outside referral can be sent to dr. Shankar in [place]. He specializes in Samter s triad but requires a referral. The fax number is [phone] and demographics will need to be sent as well. I would be happy to send the referral once it is available. Thank you, Zoie documented in this [id number] Telephone encounter Note* Telephone Encounter - Becky Hernandez RPh - 05/17/2022 2:31 PM EST Last visit with [facility] (Michael Wiseman) was 11/02/2021. No future visit scheduled. Requested Prescriptions Pending Prescriptions Disp Refills montelukast (SINGULAIR) 10 MG tablet [Pharmacy Med Name: MONTELUKAST SOD 10 MG TABLET] 90 Tablet 3 Sig: TAKE 1 TABLET BY MOUTH EVERY DAY No PCP on file No PCP on file [id number] Miscellaneous Notes* Telephone Encounter - Becky Hernandez RPh - 05/17/2022 2:31 PM EST Last visit with [facility] (Michael Wiseman) was 11/02/2021. No future visit scheduled. Requested Prescriptions Pending Prescriptions Disp Refills montelukast (SINGULAIR) 10 MG tablet [Pharmacy Med Name: MONTELUKAST SOD 10 MG TABLET] 90 Tablet 3 Sig: TAKE 1 TABLET BY MOUTH EVERY DAY No PCP on file No PCP on file documented in this [id number] History of Present illness Narrative* Michael Wiseman MD - 11/02/2021 2:42 PM EDT Images [...] PER LOCALIZATION; Surgeon: Michael Wiseman MD; Location: [facility]; Service: Otolaryngology MYRINGOTOMY WITH PRESSURE [...] Nausea Pollen Extract Itching Wheat Bran diarrhea [place] Oil Other reaction(s): Nausea And Vomiting [place]-Related Products Nausea Other (Review Comments!) Itching and [...] appropriate exam) Counseling/educating : patient Charting in [facility] of which 20 minutes was spent [id number] with the patient documented in this [id number] Hospital Discharge instructions* Instructions* Enrique Srinivasan MD [...] or ANY other concerns. documented in this [email or web address] Phone: [phone]) 554-781608-07-2021 Hospital Discharge instructions* Instructions* Enrique Srinivasan MD [...] Everywhere. * Coronavirus Disease (COVID-19): General Info (Stateless) documented in this [email or web address] Phone: evaluation note* Diagnosis Nausea vomiting and diarrhea- Primary Nausea with vomiting COVID-19 virus infection documented in this encounter [email or web address] Phone: evaluation note* Diagnosis Mild intermittent asthma with exacerbation- Primary Unspecified asthma, with exacerbation documented in this encounter [email or web address] Phone: evaluation note* Diagnosis Close exposure to COVID-19 virus- Primary documented in this encounter [email or web address] Phone: evaluation note* Diagnosis Chronic sinusitis, unspecified location- Primary Post-op pain Other acute postoperative pain documented in this encounter [email or web address] Phone: evaluation note* Diagnosis Chronic pansinusitis- Primary Other chronic sinusitis Anosmia Disturbances of sensation of smell and taste Multiple nasal polyps Unspecified nasal polyp [facility] Chronic pansinusitis- Primary Other chronic sinusitis Multiple nasal polyps Unspecified nasal polyp [facility] Phone: Evaluation noteNo 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 Other History general Narrative - Reported* Type Description Date Medical History Seasonal Allergies Medical History glaucoma Medical History IBSD Medical History Asthma Surgical History Sinus Surgery x2 Surgical History PET Placement Surgical History Endoscopy Surgical History WISDOM TEETH REMOVED-REBEKAH - 2015 Surgical History TONSILLECTOMY 2015 Surgical History TURBINOPLASTY x3 2015 Surgical History tonsillectomy and adenoidectomy Surgical History colonoscopy Surgical History septoplasty Surgical History polypectomy Hospitalization History See past surgical hx [facility] Other Hospital Discharge instructions* Attachments The following attachments cannot be sent through Care Everywhere. * Coronavirus Disease (COVID-19): General Info (Stateless) * COVID-19: Taking Care of Yourself If You Have It: Video (Stateless) * Nausea and Vomiting (Stateless) * Diarrhea (Stateless) documented in this [email or web address] Phone: Hospital Discharge instructions* Attachments The following attachments cannot be sent through Care Everywhere. * Asthma: General Info (Stateless) documented in this [email or web address] Phone: Discharge Instructions * Instructions* Enrique Srinivasan [...] Everywhere. * Coronavirus Disease (COVID-19): General Info (Stateless) * Coronavirus Disease (COVID-19): Isolation (Stateless) documented in this encounter Assessments Diagnosis COVID-19- Primary Advance Directives No Advanced Directives Records FoundDocuments on File Type Date Recorded Patient Cardiac Care Unit Nurse Expl anation ACP-Advance Directive ACP-Power of Credit Verification Clerk Advance Directive Response Recorded Date/ Time Advance Directives No March 6:28pm Reason for Referral Specialty Diagnoses / Procedures Referred By Conthans t Referred To Contact Diagnoses Chronic pansinusitis Multiple nasal polyps Michael Wiseman MD [address] [place] [address] Referral ID Status Reason Start Date Expiration Date Visits Requested Visits Authorized [id number] Authorized Patient Preference 10/14/2022 10/15/2023 3 3 [...] 1 dose 2314 (Given - Provid er: Nancy Jones RN) Scheduled Medication Order 02/16/2021 02/17/2021 02/18/2021 acetaminophen (TYLENOL) tablet 650 mg (COMPLETED) 650 mg, Oral, ONCE, On Marti 02/18/21 at 2130, For 1 dose, Maximum dose of acetaminophen is 4000 mg from all sources in 24 hours. 2129 (Given - Provid er: Betzaida Espinal RN) amoxicillin (AMOXIL) capsule 500 mg (COMPLETED) 500 mg, Oral, ONCE, On Marti 02/18/21 at 2130, For 1 dose 2129 (Given - Provid er: Betzaida Espinal RN) HYDROcodone-acetaminophen (NORCO) 5-325 MG per tablet 1 tablet (COMPLETED) 1 tablet, Oral, ONCE, On Marti 02/18/21 at 2130, For 1 dose 2129 (Given - Provid er: Betzaida Espinal RN) [...] Care Teams (unrecognized sec tion and content) Sprayer Leather Relationship Specialty Start Date End Date Heather Taylor MD [address] [place] [id number] Physician Allergy Medicine 04/14/20 Michael Wiseman MD [address] [place] [address] [phone] Physician Otolaryngology 04/14/20 Sprayer Leather Relationship Specialty Start Date End Date eHather Taylor MD [address] [place] [address] [phone] Physician Allergy Medicine 04/14/20 Michael Wiseman MD [address] [place] [address] [phone] Physician Otolaryngology 04/14/20 Sprayer Leather Relationship Specialty Start Date End Date Heather Taylor MD [address] [place] [address] [phone] Physician Allergy Medicine 04/14/20 Michael Wiseman MD [address] [place] [address] [phone] Physician Otolaryngology 04/14/20 Sprayer Leather Relationship Specialty Start Date End Date Heather Taylor MD [address] [place] [address] [phone] Physician Allergy Medicine 04/14/20 Michael Wiseman MD [address] [place] [address] [phone] Physician Otolaryngology 04/14/20 Sprayer Leather Relationship Specialty Start Date End Date Heather Taylor MD [address] [place] [address] [phone] Physician Allergy Medicine 04/14/20 Michael Wiseman MD [address] [place] [address] [phone] Physician Otolaryngology 04/14/20 Sprayer Leather Relationship Specialty Start Date End Date Heather Taylor MD [address] [place] [address] [phone] Physician Allergy Medicine 04/14/20 Michael Wiseman MD [address] [place] [address] [phone] Physician Otolaryngology 04/14/20 Team Status: Active Member Role Status Dates Zoran Flores MD Primary Care Provider Active Team Status: Inactive Member Role Status Dates Zoran Flores MD Primary Care Provider Active CHELY Hernandez Attending Provider Active INFORMATION SOURCE (unrecogn ized section and content) DATE CREATED AUTHOR 12/16/2022 [facility] DATE CREATED AUTHOR AUTHOR'S ORGANIZ ATION 04/24/2023 [facility] DATE CREATED AUTHOR AUTHOR'S ORGANIZ ATION 04/29/2023 [facility] DATE CREATED AUTHOR AUTHOR'S ORGANIZ ATION 07/28/2023 [facility] DATE CREATED AUTHOR AUTHOR'S ORGANIZ ATION 08/10/2023 [facility] [employer] [facility] Goals (unrecognized section and content) Goals may [...] BE BASED ON THE PRIMARY CLINICAL RECORDS. [facility] [employer] [facility]. provides no warranty or guarantee of the accuracy or completeness of information in this document.
== END 2023-08-22 12:27 | disposition home or self-care (01) ==
LOC: CT 12:26
PROVIDERS: PCP Family Medicine; Visit Provider Family Medicine
DX: N28.89 Other specified disorders of kidney and ureter (principal)
CPT/HCPCS: 74170; Q9967

== ENCOUNTER 2024-02-29 16:24 | Emergency (ER) | payer MEDICAID, SELFPAY ==
[2024-02-29 16:39] VITALS: BP 163/110; PULSE 96; TEMP 36.7; O2SAT 97; BMI 43.8
[2024-02-29] MEDS: 0.9 % SODIUM CHLORIDE 1,000 ML 999 ML IV (17:55)
--- NOTE | 2024-02-29 17:57 | ED_ITS ---
HPI - Weakness General Chief complaint: Weakness Stated complaint: Dehydration Time Seen by Provider: 02/29/24 17:34 Source: patient Mode of arrival: walk-in Limitations: no limitations History of Present Illness HPI Narrative: Patient is a 29-year-old female who presents to the emergency department with concern that she is dehydrated. She states she has felt foggy and disoriented for the last week since she went out drinking for her birthday, she states she is allergic to alcohol so she had a 2 to 3-day history of not feeling well with vomiting. She has not continued to vomit. No diarrhea or urinary symptoms. No fevers or upper respiratory symptoms. She has no pain to the abdomen. No medications taken prior to arrival. She is not concerned for . Related Data Home Medications ?Medication ?Instructions ?Recorded ?Confirmed aspirin 325 mg capsule 325 mg PO DAILY 06/30/23 06/30/23 Previous Rx's ?Medication ?Instructions ?Recorded hyoscyamine sulfate 0.125 mg 0.125 mg PO Q6H PRN abdominal pain 06/30/23 sublingual tablet (Levsin/SL) #20 tabs ondansetron 4 mg disintegrating 4 mg PO Q6H PRN nausea and 06/30/23 tablet vomiting #20 tabs cephalexin 500 mg capsule 500 mg PO Q8H 10 days #5 caps 02/29/24 ondansetron 4 mg disintegrating 4 mg PO Q6H PRN nausea and 02/29/24 tablet vomiting #12 tabs Allergies Allergy/AdvReac Type Severity Reaction Status Date / Time azithromycin Allergy Severe Verified 06/30/23 19:31 [From [employer] [facility]] Sulfa (Sulfonamide Allergy Severe Verified 06/30/23 19:31 Antibiotics) eggs Allergy Severe Uncoded 06/30/23 19:31 Review of Systems ROS Constitutional Denies: fever or chills Eyes Denies: change in vision Cardiovascular Denies: chest pain Respiratory Denies: shortness of breath Gastrointestinal Reports: nausea and vomiting; Denies: abdominal pain Musculoskeletal Denies: back pain or neck pain Integumentary/Breast Denies: rash Neurological Reports: dizziness; Denies: headache, numbness in extremities or weakness in extremities Hematologic/Lymphatic Denies: easy bruising or easy bleeding Exam Narrative Exam Narrative: Gen.: Awake, alert, in no distress Head: Normocephalic, atraumatic ENT: Moist mucous membranes Respiratory: No respiratory distress, lungs clear bilaterally Cardio: Regular rate and rhythm Gastrointestinal: Abdomen is soft, nondistended and nontender to palpation Extremities: Moves extremities equally, no injuries noted Psych: Normal mood and affect Neuro: No focal neuro deficit Skin: Warm, dry, intact Constitutional Vital Signs, click to edit/add: Last Vital Signs Temp 98.1 F 02/29/24 16:39 Pulse 87 02/29/24 18:21 Resp 18 02/29/24 18:21 BP 156/93 H 02/29/24 18:21 Pulse Ox 97 02/29/24 18:21 O2 Del Method Room Air 02/29/24 16:39 Course Vital Signs Vital signs: Vital Signs Temperature 98.1 F 02/29/24 16:39 Pulse Rate 96 H 02/29/24 16:39 Respiratory Rate 16 02/29/24 16:39 Blood Pressure 163/110 H 02/29/24 16:39 Pulse Oximetry 97 02/29/24 16:39 Oxygen Delivery Method Room Air 02/29/24 16:39 Temperature 98.1 F 02/29/24 16:39 Pulse Rate 87 02/29/24 18:21 Respiratory Rate 18 02/29/24 18:21 Blood Pressure 156/93 H 02/29/24 18:21 Pulse Oximetry 97 02/29/24 18:21 Oxygen Delivery Method Room Air 02/29/24 16:39 MDM - Weakness MDM Narrative Medical decision making narrative: Studies reviewed and noted within normal limits, she was treated with IV fluids. She has no complaints of pain or nausea in the ER. Patient is awake, alert and oriented with stable vital signs. She does have evidence of a mild urinary tract infection so she was treated with a short course of antibiotics and antiemetics for home. Continue to increase fluids and return to the emergency department if symptoms change or worsen. SHARED APC VISIT, PHYSICIAN ATTESTATION: [id number] I performed a substantive part of the MDM during the patient?s E/M visit. I personally evaluated and examined the patient. I personally made or approved the documented management plan and acknowledge its risk of complications. Medical Records Attestation: I reviewed the patient's medical records. Lab Data Attestation: I reviewed the patient's lab results. Labs: Lab Results 02/29/24 02/29/24 Range/Units 17:51 17:53 WBC 10.6 (4.0-11.0) 10^3/uL RBC 4.75 (4.20-5.40) 10^6/uL Hgb 12.3 (12.0-16.0) g/dL Hct 39.2 (36.0-48.0) % MCV 82.5 (81.0-99.0) fL MCH 25.9 L (26.7-34.0) pg MCHC 31.4 (29.9-35.2) g/dL RDW 15.1 H (11.0-15.0) % Plt Count 360 (150-450) 10^3/uL MPV 10.1 (9.5-13.5) fL Neut % (Auto) 61.2 (43.0-75.0) % Lymph % (Auto) 24.4 (20.5-60.0) % Charles % (Auto) 5.3 (1.7-12.0) % Eos % (Auto) 7.9 H (0.9-7.0) % Baso % (Auto) 0.8 (0.2-2.0) % Neut # (Auto) 6.5 (1.4-6.5) 10^3/uL Lymph # (Auto) 2.6 (1.2-3.8) 10^3/uL Charles # (Auto) 0.6 (0.3-0.8) 10^3/uL Eos # (Auto) 0.8 H (0.0-0.7) 10^3/uL Baso # (Auto) 0.1 (0.0-0.1) 10^3/uL Abs Immat Gran (auto) 0.04 H (0.00-0.03) 10^3/uL Imm/Tot Granulo (auto) 0.4 (0.0-0.5) % Sodium 139 (136-145) mmol/L Potassium 3.7 (3.5-5.1) mmol/L Chloride 104 (98-107) mmol/L Carbon Dioxide 27.4 (21.0-32.0) mmol/L Anion Gap 11.3 BUN 6.0 L (7.0-18.0) mg/dL Creatinine 0.82 (0.55-1.02) mg/dL Est GFR ( Amer) >60 (>=60) Est GFR (Non-Af Amer) >60 (>=60) BUN/Creatinine Ratio 7.3 Glucose 108 H (74-106) mg/dL Lactate 0.9 (0.4-2.0) mmol/L Calcium 9.3 (8.5-10.1) mg/dL Total Bilirubin 0.4 (0.2-1.0) mg/dL AST 24 (15-37) U/L ALT 50 (14-59) U/L Alkaline Phosphatase 88 (46-116) U/L Total Protein 7.5 (6.4-8.2) g/dL Albumin 3.8 (3.4-5.0) g/dL Globulin 3.7 g/dL Albumin/Globulin Ratio 1.0 Serum HCG, Qual Negative (NEGATIVE) Urine Color Yellow (YELLOW) Urine Clarity Clear (CLEAR) Urine pH 6.0 (5.0-9.0) Ur Specific [place] 1.025 (1.005-1.025) Urine Protein Negative (NEG/TRACE) mg/dL Urine Glucose (UA) Negative (NEGATIVE) mg/dL Urine Ketones Trace A (NEGATIVE) mg/dL Urine Occult Blood Negative (NEGATIVE) Urine Nitrite Negative (NEGATIVE) Urine Bilirubin Negative (NEGATIVE) Urine Urobilinogen 0.2 (0.2-1.0) EU/dL Ur Leukocyte Esterase Trace A (NEGATIVE) Urine RBC 0-2 (0-2) #/HPF Urine WBC 0-2 A (NONE SEEN) #/HPF Ur Squamous Epith Cells Few A (NONE/RARE) #/LPF Urine Crystals None seen (None Seen) #/HPF Urine Bacteria Moderate A (NONE SEEN) #/HPF Urine Casts None seen (NONE SEEN) #/LPF Urine Mucus Trace A (NONE SEEN) Ur Culture Indicated? Yes Discharge Plan Discharge Stand Alone Forms: Work/School Release, Portal Instructions Chief Complaint: Weakness Clinical Impression: Weakness, UTI (urinary tract infection) Patient Disposition: Home, Self-Care Time of Disposition Decision: 18:52 Condition: Good Prescriptions / Home Meds: New cephalexin 500 mg capsule 500 mg PO Q8H 10 Days Qty: 5 0RF ondansetron 4 mg tablet,disintegrating 4 mg PO Q6H PRN (Reason: nausea and vomiting) Qty: 12 0RF No Action aspirin 325 mg capsule 325 mg PO DAILY ondansetron 4 mg tablet,disintegrating 4 mg PO Q6H PRN (Reason: nausea and vomiting) Qty: 20 0RF hyoscyamine sulfate [Levsin/SL] 0.125 mg tablet, sublingual 0.125 mg PO Q6H PRN (Reason: abdominal pain) Qty: 20 0RF Print Language: Macedonian Instructions: Urinary Tract Infection in Women (ED), Weakness (ED) Referrals: Zoran Christy MD [Primary Care Provider] - 1 week
[2024-02-29 18:03] LABS: Bilirubin Urine NEGATIVE (NEGATIVE); Blood Urine NEGATIVE (NEGATIVE); Clarity Urine CLEAR (CLEAR); Color Urine YELLOW (YELLOW); Glucose Urine UA NEGATIVE (NEGATIVE); Ketones Urine TRACE mg/dL (NEGATIVE); Leukocyte Esterase Urine TRACE (NEGATIVE); Nitrite Urine NEGATIVE (NEGATIVE); Protein Urine NEGATIVE (NEG/TRACE); Specific Gravity Urine 1.025 (1.005-1.025); Urine Microscopic Indicated YES; Urobilinogen Urine 0.2 EU/dL (0.2-1.0)
[2024-02-29 18:03] LABS: Basophils Absolute Auto 0.1 10^3/uL (0.0-0.1); Basophils Percent Auto 0.8 % (0.2-2.0); Eosinophils Absolute Auto 0.8 10^3/uL (0.0-0.7); Eosinophils Percent Auto 7.9 % (0.9-7.0); Hematocrit 39.2 % (36.0-48.0); Hemoglobin 12.3 g/dL (12.0-16.0); Immature Granulocytes Abs Auto 0.04 10^3/uL (0.00-0.03); Immature Granulocytes Pct Auto 0.4 % (0.0-0.5); Lymphocytes Absolute Auto 2.6 10^3/uL (1.2-3.8); Lymphocytes Percent Auto 24.4 % (20.5-60.0); Mean Corpuscular HGB Conc 31.4 g/dL (29.9-35.2); Mean Corpuscular Hemoglobin 25.9 pg (26.7-34.0); Mean Corpuscular Volume 82.5 fL (81.0-99.0); Mean Platelet Volume 10.1 fL (9.5-13.5); Monocytes Absolute Auto 0.6 10^3/uL (0.3-0.8); Monocytes Percent Auto 5.3 % (1.7-12.0); Neutrophils Absolute Auto 6.5 10^3/uL (1.4-6.5); Neutrophils Percent Auto 61.2 % (43.0-75.0); Platelet Count 360 10^3/uL (150-450); Red Blood Count 4.75 10^6/uL (4.20-5.40); Red Cell Distribution Width 15.1 % (11.0-15.0); White Blood Count 10.6 10^3/uL (4.0-11.0)
[2024-02-29 18:14] LABS: Alanine Aminotransferase 50 U/L (14-59); Albumin Level 3.8 g/dL (3.4-5.0); Alkaline Phosphatase 88 U/L (46-116); Anion Gap 11.3; Aspartate Amino Transferase 24 U/L (15-37); BUN Creatinine Ratio 7.3; Bilirubin Total 0.4 mg/dL (0.2-1.0); Calcium 9.3 mg/dL (8.5-10.1); Carbon Dioxide 27.4 mmol/L (21.0-32.0); Chloride 104 mmol/L (98-107); Estimated GFR (African America >60 (>=60); Estimated GFR (Non-African Ame >60 (>=60); Globulin 3.7 g/dL; Glucose 108 mg/dL (74-106); Potassium 3.7 mmol/L (3.5-5.1); Sodium 139 mmol/L (136-145); Total Protein 7.5 g/dL (6.4-8.2)
[2024-02-29 18:14] LABS: Bacteria Urine MODERATE #/HPF (NONE SEEN); Crystals Seen? None Seen #/HPF (None Seen); Mucus Urine TRACE (NONE SEEN); RBC Urine 0-2 #/HPF (0-2); Squamous Epithelial Cell Urine FEW #/LPF (NONE/RARE); WBC Urine 0-2 #/HPF (NONE SEEN)
[2024-02-29 18:15] LABS: Cast Seen? NONE SEEN #/LPF (NONE SEEN); Urine Culture Indicated YES
[2024-02-29 18:17] LABS: Lactate/Lactic Acid 0.9 mmol/L (0.4-2.0)
[2024-02-29 18:21] VITALS: BP 156/93; PULSE 87; O2SAT 97
[2024-02-29 18:33] LABS: HCG Qualitative NEGATIVE (NEGATIVE); Internal Control Within Normal Limits
== END 2024-02-29 19:03 | disposition home or self-care (01) ==
PROVIDERS: Physician Assistant; Emergency Provider Emergency Medicine; PCP Family Medicine
DX: N39.0 Urinary tract infection, site not specified (principal); R53.1 Weakness; R11.2 Nausea with vomiting, unspecified
CPT/HCPCS: 36415; 80053; 81001; 83605; 84703; 85025; 87086; 96360; 99284

== ENCOUNTER 2024-03-27 10:58 | Emergency (ER) | payer MEDICAID, SELFPAY ==
[2024-03-27 11:07] VITALS: BP 160/113; PULSE 90; TEMP 37.2; O2SAT 96
--- NOTE | 2024-03-27 11:43 | CT_ITS ---
[address] [address] Patient Name: LILIANA RHODES MRN: [id number] date: 1995 Sex: F Assigned Patient Location: ER Current Patient Location: ER Accession/Order Number: [id number] Exam Date: 03/27/2024 12:40 Report Date: 03/27/2024 13:07 At the request of: DANTE ROYAL Procedure: CT abdomen pelvis w con EXAMINATION: CT abdomen pelvis w con HISTORY: pain COMPARISON: 08/22/2023, 06/30/2023 TECHNIQUE: CT images were created with IV contrast. Axial, Coronal, and Sagittal images. Dose reduction techniques were achieved by using automated exposure control and/or adjustment of mA and/or kV according to patient size and/or use of iterative reconstruction technique. FINDINGS: LUNG BASES: No visible pulmonary or pleural disease. LIVER: No enlargement, atrophy, abnormal density, or significant focal lesion. BILIARY: No visible dilatation or calcification. PANCREAS: No lesion, fluid collection, ductal dilatation, or atrophy. SPLEEN: No enlargement or focal lesion. ADRENALS: No mass or enlargement. KIDNEYS: Identified in the posterior right renal cortex is a 2 cm area of hypodensity axial image 52, increased in size from the prior exam but indeterminate. The left kidney is normal. No hydronephrosis or obstructing nephrolithiasis BOWEL/MESENTERY: No visible mass, obstruction, or bowel wall thickening. Normal appendix AORTA/VASCULAR: No aneurysm or dissection. RETROPERITONEUM: No mass or adenopathy. LYMPH NODES: No adenopathy. URINARY BLADDER: No visible focal wall thickening, lesion, or calculus. PELVIC ORGANS: Bilateral adnexal hypodensities likely cysts ABDOMINAL WALL: No mass or hernia. BONES: No bony lesion or fracture. OTHER: Negative. CT/CT abdomen pelvis w con IMPRESSION: 2 cm right renal cortical hypodensity of unknown etiology slightly increased in size from the prior exam. Malignancy should be excluded Electronically authenticated by: KATHARINA CHRISTY Date: 03/27/2024 13:07
--- OUTSIDE RECORDS SUMMARY | 2024-03-27 11:44 | XMS_ITS | CCD ---
Author Organization [facility] Care Team Providers Care Flow Coordinator Name Role Phone Zoran Flores Primary Care Provider Heather Taylor MD Unavailable [phone] Michael Wiseman MD Unavailable Heather Taylor MD Unavailable [phone] Michael Wiseman MD Unavailable Heather Taylor MD Unavailable Michael Wiseman MD Unavailable SANDRA, DR ZORAN Baez Consulting Unavailable NADEREDel, DR ZORAN Baez Primary Care [...] Flanagan Attending Unavailable Maribel Flanagan Admitting Unavailable Naderer, Zoran Primary Care Unavailable April, Jeremiah Unavailable Zoran Flores MD Primary Care Provider URSULA MCGINNIS Attending Unavailable MARYANA AMADOR Referring Unavailable HANY ELLISON Attending Unavailable NADERER, ZORAN Attending Unavailable NADERER, ZORAN Attending Unavailable SHAIKH JARAMILLO Attending Unavailable TEJAS JUARES Referring Unavail able NADERER, ZORAN Primary Care Unavailable TEJAS JUARES Attending Unavailable NADERER, ZORAN Referring Unavailable NADERER, ZORAN Primary Care Unavailable JIE SHAWA M Attending Unavailable SANDRA, ZORAN Referring Unavailable NADPJ, ZORAN Primary Care Unavailable TEJAS JUARES Referring Unavailable NADERER, ZORAN Primary Care Unavailable VALERIA LYNDSAY M Referring Unavailable NADERER, ZORAN Primary Care Unavailable Allergies Allergy Classification Reported Allergen(s) Allergy Type Date of Onset Reaction(s) Facility Pollen (4 sources) bee pollen Substance Allergy 06-10-20 15 Itching [facility] Sulfonamides (antibiotic) (4 sources) Sulfonamides (Antibiotic) Drug Allergy 06-10-20 15 Nausea And Vomiting [facility] (2 sources) bee pollen Propensity to adverse reactions to drug 06-10-20 15 Itching [facility] Work Phone: (2 sources) Sulfonamides (Antibiotic) Propensity to adverse reactions to drug 06-10-20 15 Nausea And Vomiting [facility] Work Phone: (7 sources) [place]-Containing Products Propensity to adverse reactions to drug 06-10-20 15 Nausea And Vomiting, Nausea Only [facility] Work Phone: (7 sources) Eggs Or Egg-Derived Products Propensity to adverse reactions to drug 06-10-20 15 Nausea And Vomiting, Unknown [facility] Work Phone: (5 sources) Other; Translations: [OTHER] Propensity to adverse reactions 06-10-20 15 Itching [facility] Work Phone: (5 sources) Yeast-Related Products Propensity to adverse reactions to drug 06-10-20 15 Other (See Comments) [facility] Work Phone: (4 sources) Bee pollen; Translations: [BEE POLLEN] Drug Allergy 12-17-19 17 Itching [facility] (10 sources) [place] Oil; Translations: [CORN OIL] Drug Allergy 12-17-19 17 [facility] (1 source) cultivated mushroom extract Drug Allergy 10-24-19 19 Nausea [facility] (2 sources) Lactose; Translations: [LACTOSE] Drug Allergy 10-24-19 19 Vomiting [facility] (4 sources) sulfaSALAzine; Translations: [SULFASALAZINE] Drug Allergy 12-17-19 17 [facility] (9 sources) WHEAT DEXTRIN Drug Allergy 12-08-19 19 [facility] Work Phone: (7 sources) [place]-Related Products Propensity to adverse reactions to drug 06-10-20 15 Nausea [facility] (7 sources) Egg Or Chicken-Derived Drugs Propensity to adverse reactions to drug 11-24-19 19 [facility] (7 sources) Other (Review Comments!) Propensity to adverse reactions to drug 06-10-20 15 Itching, Hives [facility] (6 sources) Bee pollen Propensity to adverse reactions to drug 12-17-19 17 Itching [facility] (6 sources) Lactose (non-medical use) Propensity to adverse reactions to drug 10-24-19 19 Vomiting [facility] (8 sources) Mushroom Propensity to adverse reactions to drug 10-24-19 19 Nausea, Nausea Only [facility] (6 sources) Pollen Propensity to adverse reactions to drug 06-10-20 15 Itching [facility] (8 sources) Sulfasalazine Propensity to adverse reactions to drug 12-17-19 17 [facility] (8 sources) Sulfonamides (Antibiotic) Propensity to adverse reactions to drug 06-10-20 15 GI intolerance, Hives, Itching, Nausea And Vomiting, Unknown [facility] (2 sources) Abdon albicans allergenic extract Drug Allergy 01-14-20 13 [facility] Repository (2 sources) corn extract Drug Allergy 01-14-20 13 [facility] (6 sources) egg extract; Translations: [EGG] Drug Allergy 02-20-20 16 sick to stomach [facility] Repository (2 sources) Sulfonamides (Antibiotic) Drug allergy (disorder) 01-14-20 13 [facility] Repository (2 sources) Wheat preparation Drug Allergy 01-14-20 13 [facility] Repository (2 sources) Misc-Food; Translations: [Misc-Food] Food allergy (disorder) 01-14-20 13 [facility] Repository (2 sources) Egg Propensity to adverse reactions Unknown [facility] Other (2 sources) Sulfacetamide / Sulfur Drug Allergy pt doesn't remember [facility] Other (9 sources) Sulfonamides (Antibiotic); Translations: [Sulfa (Sulfonamide Antibiotics)] Allergy to substance 08-29-19 14 Vomiting [facility] (1 source) egg extract Drug Allergy 01-18-20 20 [facility] Repository (2 sources) Azithromycin Drug Allergy 11-17-19 23 [facility] (2 sources) Sulfamethoxazole / Trimethoprim Drug Allergy 11-30-19 23 Unknown [facility] (4 sources) Mushroom (edible); Translations: [MUSHROOM] Propensity to adverse reactions to drug (disorder) 06-21-20 [facility] Repository (3 sources) Sulfacetamide Drug Allergy 09-21-19 24 pt doesn't remember [facility] (3 sources) Sulfur Drug Allergy 09-21-19 24 pt doesn't remember [facility] (6 sources) Egg Derived; Translations: [EGG DERIVED] Allergy to substance 12-17-19 17 Nausea [facility] (2 sources) Ketorolac Drug Allergy 10-24-19 24 Itching [facility] (3 sources) Abdon albicans allergenic extract; Translations: [YEAST EXTRACT] Drug Allergy 12-17-19 17 [facility] Repository (3 sources) Gluten; Translations: [GLUTEN] Propensity to adverse reactions to food (disorder) 06-21-20 [facility] Repository (3 sources) Lactase; Translations: [LACTASE] Drug Allergy 06-21-20 [facility] Repository NEGATED: Highlighted row has been ruled out!Unclassified (3 sources) Other Propensity to adverse reactions 06-10-20 15 Itching [facility] Medications Current Medications Medication Drug Class(es) Dates [...] as needed for Pain . 0 Active [id number] 200 actuat albuterol 0.09 mg/actuat metered dose inhaler (20 sources) beta2-Adrenerg ic Agonist Start: 024 Albuterol Sulfate Active INHALATION September 21, 2023 12:00am Start: 01-23-2021 take 2 puff(s) by mo uth every four hours as needed albuterol (PROVENTIL HFA) INHALATION HFA inhaler (VENTOLIN,PROAIR,PROVENTIL) 90mcg TAKE 2 PUFFS BY MOUTH EVERY 4 HOURS NEEDED 01/23/2021 Active Start: 12-16-2020 albuterol (PRO VENTIL) nebulizer solution 2.5 mg Start: 09-08-2018 End: 01-18-2020 Albuterol Sulfate Discontinu ed 2 INH INHALATION Q4H 8 September 08, 2018 1:00am January 18, 2020 7:47pm administer with spacer take 1 puff(s) by inhalation every four hours for wheezing albuterol HFA 90 mcg/act inhaler Inhale 1 puff every 4 (four) hours if needed for wheezing or shortness of breath. 0 Active take 2 puff(s) by inhalation every six hours as needed for wheezing albuterol sulfate HFA (VENTOLIN HFA) 108 (90 Base) MCG/ACT inhaler Inhale 2 puffs into the lungs every 6 hours as needed for Wheezing 0 Active take 2 puff(s) by inhalation every six hours as needed for wheezing [...] 11/16/2021 Active aspirin 325 mg oral tablet (7 sources) Platelet Aggregation Inhibitor, Nonsteroidal Anti-inflammatory Drug Start: 09-21-2023 take 325 mg by mouth once daily Aspirin Active 325 MG PO Daily September 21, 2023 12:00am take 1 tablet by mouth in the mo rning aspirin 325 MG tablet Take 1 tablet by mouth in the morning. 0 Active 60 actuat budesonide 0.16 mg/actuat / formoterol fumarate 0.0045 mg/actuat metered dose inhaler (18 sources) Corticosteroid, beta2-Adrenergic Agonist Start: 03-30-2023 take 2 puff(s) by mouth every twelve hours budesonide-formoterol (Symbicort) 160-4.5 MCG/ACT inhaler INHALE 2 PUFFS BY MOUTH EVERY 12 HOURS 0 03/30/2023 Active Start: 01-23-2021 take 2 puff(s) by mo uth twice daily Symbicort 160-4.5 MCG/ACT inhaler TAKE 2 PUFFS BY MOUTH TWICE A DAY 01/23/2021 Active Start: 01-18-2020 take 1 puff(s) by in halation twice daily Budesonide-Formoterol Active 2 PUFF INHALATION Twice daily January 18, 2020 12:00am take 2 puff(s) by in halation twice daily budesonide-formoterol (SYMBICORT) 160-4.5 MCG/ACT AERO Inhale 2 puffs into the lungs 2 times daily 0 Active cetirizine hydrochloride 10 mg oral capsule (20 sources) Histamine-1 Receptor Antagonist Start: 09-21-2023 take 1 capsule by mouth once daily Cetirizine (Zyrtec) 10 mg capsule Active 10 MG PO Daily September 21, 2023 12:00am Start: 08-24-2021 End: 08-09-2023 take 1 tablet by mouth once daily cetirizine (ZyrTEC) 10 MG tablet TAKE 1 TABLET BY MOUTH EVERY DAY 90 Tablet 3 08/09/2022 Active cetirizine (ZyrT EC) 5 MG chewable tablet Chew Daily. 0 Active ZyrTEC Allergy A ctive take 1 tablet by dana th once daily cetirizine (ZYRTEC) 10 MG tablet Take 10 mg by mouth daily 0 Active cholecalciferol 0.05 mg oral tablet (7 sources) Vitamin D Start: 09-21-2023 Cholecalcifero l (Vitamin D3) (Vitamin D3) 50 mcg (2,000 unit) tablet Active PO September 21, 2023 12:00am Start: 04-10-2023 take 1 tablet by dana th in the morning cholecalciferol (Vitamin D-3) 50 MCG (1999) tablet Take 50 mcg by mouth in the morning. 0 04/10/2023 Active take 1 capsule by mo uth every twenty-four hours Vitamin D3 50 MCG (1999 UT) 1 capsule Orally Once a day Active [id number] 0.3 ml EPINEPHrine 1 mg/ml auto-injector (11 sources) alpha-Adrenergic Agonist, beta-Adrenergic Agonist, Catecholamine Start: 11-25-2022 EPINEPHrine (Epip en) 0.3 MG/0.3ML injection syringe INJECT 0.3 ML INTO THE MUSCLE 1 TIME FOR 1 DOSE. IN CASE OF SEVERE ALLERGIC REACTION (ANAPHYLAXIS) 0 11/25/2022 Active Start: 02-20-2019 EPINEPHrine (E PIPEN 2-AL) 0.3 MG/0.3ML injection Use as instructed for allergic reaction 2 Each 3 02/20/2019 Active EpiPen Active EPINEPHrine HCl, Anaphylaxis, (EPIPEN IM) (5 sources) EPINEPHrine HCl, Anaphylaxis, (EPIPEN IM) Inject 1 Dose into the muscle As needed for emergencies 0 Active ibuprofen 800 mg oral tablet (5 sources) Nonsteroidal Anti-inflammatory Drug take 1 tablet by mouth every six hours as needed for pain ibuprofen (ADVIL;MOTRIN) 800 MG tablet Take 800 mg by mouth every 6 hours as needed for Pain 0 Active 24 hr metFORMIN hydrochloride 500 mg extended release oral tablet (2 sources) Biguanide Start: 2023 take 1000 mg by mouth twice daily Metformin Active 1000 MG PO Twice daily 120 October 24, 2023 12:00am methylPREDNISolone 4 mg oral tablet (2 sources) Corticosteroid Start: 2020 End: 2020 methylPREDNISolone (MEDROL, AL,) 4 MG tablet Take by mouth. 1 kit 0 10/20/2020 10/26/2020 Active montelukast 10 mg oral tablet (20 sources) Leukotriene Receptor Antagonist Start: 2016 End: 2023 take 1 tablet by mouth once daily montelukast (SINGULAIR) 10 MG tablet TAKE 1 TABLET BY MOUTH EVERY DAY 90 Tablet 3 04/18/2023 Active montelukast (Sin gulair) 4 MG chewable tablet Chew 4 mg at bedtime. 0 Active Singulair Active mupirocin 0.02 mg/mg topical ointment (7 sources) RNA Synthetase Inhibitor Antibacterial Start: 06-23-2021 [...] 1 tablet by mouth daily 0 Active omeprazole 40 mg delayed release oral capsule (11 sources) Proton Pump Inhibitor Start: 10-24-2023 take 40 mg by mouth once daily Omeprazole Active 40 MG PO Daily October 24, 2023 12:00am Start: 09-21-2023 End: 10-24-2023 Omeprazole Discontinued MG P O September 21, 2023 12:00am October 24, 2023 3:18pm Start: 02-01-2023 take 1 capsule by mo uth in the morning omeprazole (PriLOSEC) [address] capsule Take 40 mg by mouth in the morning and 40 mg before bedtime. 0 02/01/2023 Active Start: 05-19-2017 End: 07-20-2017 Omeprazole Discontinued 40 M G PO May 19, 2017 1:00am July 20, 2017 8:02am ondansetron 4 mg disintegrating oral tablet (6 sources) Serotonin-3 Receptor Antagonist Start: 10-26-2020 End: [...] (before breakfast) 30 each 3 10/26/2020 Active polyethylene glycol 3350 81526 mg powder for oral solution (2 sources) Osmotic Laxative Start: 08-07-2023 polyethylene glycol, PEG, 3350 (Glycolax) 17 GM/SCOOP powder Indications: Constipation, unspecified , Constipation TAKE 1 6- 8 OZ BY MOUTH ONCE DAILY 510 g 2 08/07/2023 Active Completed/Discontinued Medications Medication Drug Class(es) Dates Sig [...] / diphenoxylate hydrochloride 2.5 mg oral tablet (4 sources) Anticholinergic, Cholinergic Muscarinic Antagonist, Antidiarrheal Start: 03-20-2017 End: 07-20-2017 take 8 tablets by mouth once Diphenoxylate-Atropine (Lomotil) 2.5-0.025 mg tablet Discontinued 2 TAB PO .q 8 March 20, 2017 12:00am July 20, 2017 8:02am cephalexin 500 mg oral tablet (4 sources) Cephalosporin Antibacterial Start: 01-18-2020 End: 09-21-2023 take 500 mg by mouth twice daily Cephalexin Discontinued 500 MG PO Twice daily 10 January 18, 2020 12:00am September 21, 2023 9:47am dicyclomine hydrochloride 10 mg oral capsule (4 sources) Anticholinergic Start: 03-20-2017 End: 07-20-2017 take 2 capsules by mouth every eight hours Dicyclomine (Bentyl) 10 mg capsule Discontinued 20 MG PO Q8H March 20, 2017 6:56pm July 20, 2017 8:02am Norethindrone-E.E stradiol-Iron (6 sources) Estrogen Start: 03-20-2017 End: 09-21-2023 take 1 tablet by mouth once daily Norethindrone-E.Estradiol -Iron Discontinued 1 TAB PO Daily March 20, 2017 12:00am September 21, 2023 9:48am Start: 03-20-2017 take 1 tablet by dana th once daily Norethindrone-E.Estradiol-Iron Active 1 TAB PO Daily March 20, 2017 12:00am Lo Loestrin Fe N ot-Taking/PRN Lo Loestrin Fe N ot-Taking hyoscyamine sulfate 0.125 mg sublingual tablet (1 source) Start: 08-17-2016 End: 10-19-2020 hyoscyamine (LEVSIN/SL) 125 MCG sublingual tablet Dissolve one or two under tongue every four hours as needed for abdominal pain or cramps. 60 tablet 6 08/17/2016 10/19/2020 Discontinued (LIST CLEANUP) loratadine 10 mg oral tablet (5 sources) Start: 03-20-2017 End: 09-21-2023 take 1 tablet by mouth once daily Loratadine Discontinued 1 TAB PO Daily March 20, 2017 12:00am September 21, 2023 9:47am ofloxacin 3 mg/ml otic solution (4 sources) Quinolone Antimicrobial Start: 08-23-2018 End: 08-30-2018 Ofloxacin Discontinued 5 DROPS EAR-LEFT Daily 5 August 23, 2018 1:00am August 30, 2018 1:01am oseltamivir 75 mg oral capsule (4 sources) Neuraminidase Inhibitor Start: 09-08-2018 End: 01-18-2020 take 1 capsule by mouth every twelve hours Oseltamivir (Tamiflu) 75 mg capsule Discontinued 75 MG PO Q12H 10 September 08, 2018 1:00am January 18, 2020 7:47pm phenazopyridine hydrochloride 200 mg oral tablet (4 sources) Start: 01-18-2020 End: 09-21-2023 take 200 mg by mouth three times daily at mealtime Phenazopyridine Discontinued 200 MG PO Three times daily 10 January 18, 2020 12:00am September 21, 2023 9:48am administer with a full glass of water after each meal predniSONE 20 mg oral tablet (10 sources) Start: 09-21-2023 End: 10-24-2023 take 20 mg by mouth twice daily Prednisone Discontinued 20 MG PO Twice daily 10 September 21, 2023 12:00am October 24, 2023 3:18pm Start: 11-02-2021 End: 01-31-2022 predniSONE (DELTASONE) 10 [...] 2020 7:47pm administer with food or milk 50 ml sodium chloride 9 mg/m l injection (2 sources) Start: 10-26-2020 End: 10-26-2020 0.9 % sodium chloride bolus Start: 10-25-2020 End: 10-26-2020 0.9 % sodium chloride infusi on TB Test (2 sources) Start: 08-21-2019 TB Test Aug 0.1 mL Problems Active Problems Problem Classification Problem Date Documented Da te Episodic/Chronic Abdominal pain (6 sources) Left upper quadrant pain; Translations: [Left upper quadrant pain] 03-20-2017 Episodic Acute and chronic tonsillitis (12 sources) Chronic adenotonsillitis; Translations: [Chronic tonsillitis and adenoiditis] Onset: 06-18-2015 06-18-2015 Chronic Anxiety disorders (2 sources) Anxiety; Translations: [Anxiety disorder, unspecified] Onset: 06-27-2023 06-27-2023 Chronic Asthma (12 sources) Exacerbation of intermittent asthma; Translations: [Mild intermittent asthma with (acute) exacerbation] Onset: 02-28-2022 Chronic Conditions associated with dizziness or vertigo (1 source) Dizziness and giddiness; Translations: [Dizziness and giddiness] Onset: 04-04-2023 Episodic Delirium, dementia, and amnestic and other cognitive disorders (4 sources) Postconcussion syndrome; Translations: [Postconcussional syndrome] 07-20-2017 Chronic Diabetes mellitus without complication (4 sources) Prediabetes; Translations: [Prediabetes] 10-24-2023 Episodic Disorders usually diagnosed in infancy, childhood, or adolescence (2 sources) Attention deficit hyperactivity disorder, predominantly inattentive type; Translations: [Other specified behavioral and emotional disorders with onset usually occurring in childhood and adolescence] Onset: 06-27-2023 06-27-2023 Chronic Fluid and electrolyte disorders (2 sources) Hypokalemia; Translations: [Hypokalemia] Onset: 07-27-2023 07-27-2023 Episodic Gastritis and duodenitis (4 sources) Gastritis; Translations: [Unspecified chronic gastritis without bleeding] Onset: 06-27-2023 06-27-2023 Chronic Gastrointestinal hemorrhage (2 sources) Rectal hemorrhage; Translations: [Hemorrhage of anus and rectum] Episodic Genitourinary symptoms and ill-defined conditions (4 sources) Polyuria; Translations: [Polyuria] Onset: 07-27-2023 07-27-2023 Episodic Immunizations and screening for infectious disease (7 sources) Contact with or exposure to other viral diseases; Translations: [Close exposure to COVID-19 virus] Onset: 2024 Episodic Joint disorders and dislocations; trauma-related (2 sources) Derangement of right knee; Translations: [Unspecified internal derangement of right knee] Onset: 05-17-2023 05-17-2023 Chronic Nausea and vomiting (3 sources) Nausea, vomiting and diarrhea; Translations: [Nausea with vomiting, unspecified] Episodic Nutritional deficiencies (6 sources) Vitamin D deficiency; Translations: [Vitamin D deficiency, unspecified] Onset: 06-27-2023 06-27-2023 Chronic Other diseases of kidney and ureters (4 sources) Renal mass; Translations: [Other specified disorders of kidney and ureter] Onset: 07-27-2023 08-22-2023 Chronic Other diseases of kidney and ureters (1 source) Other specified disorders of kidney and ureter; Translations: [Renal mass] Onset: 09-12-2023 Chronic Other disorders of stomach and duodenum (2 sources) Indigestion; Translations: [Functional dyspepsia] Episodic Other female genital disorders (1 source) Vaginal discharge Onset: 03-21-2024 Episodic Other gastrointestinal disorders (16 sources) Irritable bowel syndrome with diarrhea; Translations: [Irritable bowel syndrome with diarrhea] Onset: 08-17-2016 08-17-2016 Chronic Other gastrointestinal disorders (2 sources) Irritable bowel syndrome; Translations: [Irritable bowel syndrome without diarrhea] 10-24-2023 Chronic Other gastrointestinal disorders (2 sources) Irritable bowel syndrome without diarrhea; Translations: [Irritable bowel syndrome] 10-24-2023 Chronic Other gastrointestinal disorders (2 sources) Constipation; Translations: [Constipation, unspecified] Episodic Other gastrointestinal disorders (2 sources) Gagging; Translations: [Other specified symptoms and signs involving the digestive system and abdomen] Episodic Other gastrointestinal disorders (6 sources) Diarrhea; Translations: [Diarrhea, unspecified] 03-20-2017 Episodic Other gastrointestinal disorders (2 sources) Urgent desire for stool; Translations: [Fecal urgency] Episodic Other gastrointestinal disorders (2 sources) Passing flatus; Translations: [Flatulence] Episodic Other gastrointestinal disorders (2 sources) Heartburn; Translations: [Heartburn] Episodic Other gastrointestinal disorders (2 sources) Abdominal distension symptom; Translations: [Other specified symptoms and signs involving the digestive system and abdomen] Episodic Other inflammatory condition of skin (2 sources) Pruritus vulvae; Translations: [Pruritus vulvae] Onset: 03-21-2024 Episodic Other nervous system disorders (2 sources) Carpal tunnel syndrome of right wrist; Translations: [Carpal tunnel syndrome, right upper limb] Chronic Other nervous system disorders (1 source) Postoperative pain ; Translations: [Other acute postprocedural pain] Episodic Other nervous system disorders (2 sources) Paresthesia; Translations: [Paresthesia of skin] Onset: 06-27-2023 06-27-2023 Episodic Other non-traumatic joint disorders (1 source) Effusion, right knee Episodic Other non-traumatic joint disorders (2 sources) Multiple joint pain; Translations: [Pain in unspecified joint] Onset: 06-27-2023 06-27-2023 Episodic Other nutritional; endocrine; and metabolic disorders (9 sources) Obesity; Translations: [Obesity, unspecified] Onset: 10-08-2013 02-20-2019 Chronic Other nutritional; endocrine; and metabolic disorders (4 sources) Body mass index 40+ - severely obese; Translations: [Body mass index (BMI) 40.0-44.9, adult] 10-24-2023 Chronic Other nutritional; endocrine; and metabolic disorders (2 sources) Morbid obesity; Translations: [Morbid (severe) obesity due to excess calories] Onset: 06-27-2023 06-27-2023 Chronic Other nutritional; endocrine; and metabolic disorders (2 sources) Body mass index (BMI) 50.0-59.9, adult; Translations: [Body Mass Index 50.0-59.9, adult] 10-24-2023 Chronic Other nutritional; endocrine; and metabolic disorders (2 sources) Obesity, unspecified; Translations: [Obesity, unspecified] 10-24-2023 Chronic Other upper respiratory disease (7 sources) Allergic rhinitis; Translations: [Allergic rhinitis, unspecified] [...] DEGENERATION] Onset: 11-24-2022 Episodic Other upper respiratory disease (2 sources) Polypoid sinus degeneration; 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] Onset: 06-27-2023 06-27-2023 Episodic Other upper respiratory infections (20 sources) Chronic sinusitis; Translations: [Chronic sinusitis, unspecified] Onset: 10-31-2018 Chronic Other upper respiratory infections (3 sources) Acute upper respiratory infection, unspecified; Translations: [Acute sinusitis, unspecified] Onset: 02-28-2022 09-21-2023 Episodic Residual codes; unclassified (2 sources) Persistent insomnia; Translations: [Insomnia, unspecified] Onset: 06-27-2023 06-27-2023 Episodic Spondylosis; intervertebral disc disorders; other back problems (2 sources) Lumbago with sciatica; Translations: [Lumbago with sciatica, left side] Onset: 06-27-2023 06-27-2023 Episodic Unclassified (2 sources) COUGH, UNSPECIFIED; Translations: [COUGH, UNSPECIFIED] Onset: 02-28-2022 Unclassified (1 source) CONTACT W/AND (SUSP) EXPOS COVID-19; Translations: [CONTACT W/AND (SUSP) EXPOS COVID-19] Onset: 02-28-2022 Unclassified (1 source) Pain in right knee; Translations: [Pain in right knee] Onset: 04-21-2023 Unclassified (1 source) Vaginal Itching Onset: 03-21-2024 Unclassified (1 source) STD Discussion Onset: 2024 Urinary tract infections (4 sources) Urinary tract infectious disease; Translations: [Urinary tract infection, site not specified] 01-18-2020 Episodic Viral infection (2 sources) Other specified viral infection; Translations: [Disease caused by 2019-nCoV] Episodic Past or Other Problems Problem Classification Problem Date Documented Da te Episodic/Chronic Allergic reactions (8 sources) Allergy to food; Translations: [Allergy to other foods] Onset: 02-20-2019 02-20-2019 Episodic Other aftercare (1 source) 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 operator (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; Translations: [OTH HALFWAY CURRENT DRUG THERAPY] Onset: 02-28-2022 Episodic Other ear and sense organ disorders (1 source) Impacted cerumen, right ear; Translations: [IMPACTED CERUMEN RIGHT EAR] Onset: 02-28-2022 Episodic Other nervous system disorders (8 sources) Loss of sense of smell; Translations: [Anosmia] Onset: 09-09-2020 Episodic Other non-traumatic joint disorders (3 sources) Pain in right knee; Translations: [Pain in joint, lower leg] Onset: 05-17-2023 Episodic Other upper respiratory disease (12 sources) Deviated nasal septum; Translations: [Deviated nasal septum] Onset: 06-18-2015 06-18-2015 Episodic Other upper respiratory disease (12 sources) Hypertrophy of nasal turbinates; Translations: [Hypertrophy of nasal turbinates] Onset: 06-18-2015 06-18-2015 Episodic Other upper respiratory disease (7 sources) Nasal obstruction; Translations: [Other specified disorders of nose and nasal sinuses] Onset: 10-31-2018 10-31-2018 Episodic Other upper respiratory disease (7 sources) Andrea bullosa; Translations: [Other specified disorders of nose and nasal sinuses] Onset: 10-31-2018 10-31-2018 Episodic Other upper respiratory disease (1 source) Other specified disorders of nose and nasal sinuses; Translations: [OTH SPEC D/O NOSE NASAL SINUSES] Onset: 02-28-2022 Episodic Unclassified (1 source) COUGH, UNSPECIFIED; Translations: [COUGH, UNSPECIFIED] Onset: 02-25-2022 Results Test Name Value Interpretation Reference Range Facility CHLAMYDIA/GC BY PCRon 2023 CHLAMYDIA/GC BY PCR SPECIMEN SOURCE CERVIX CHLAMYDIA DNA(PCR) Negative (qualifier value) Chlamydia trachomatis not detected by nucleic acid amplification. This does not exclude the possibility of infection because results are dependent on adequate specimen collection. GONORRHOEAE DNA(PCR) Negative (qualifier value) Neisseria gonorrhoeae not detected by nucleic acid amplification. This does not exclude the possibility of infection because results are dependent on adequate specimen collection. Normal [facility] Comment on above: Performed By: #### C GS #### [facility] ([id number]) [address], [address] [place] [address] URINE CULTUREon 03-21-2024 Bacteria identified Cx Nom (U) CULTURE RESULTS <10,000 ORGANISMS/ML NORMAL URO GENITAL SAMAN Normal [facility] Comment on above: Performed By: #### 6 30-4 #### [facility] ([id number]) [address], [address] [place] [address] VAGINITIS PANEL PCRon 2023 VAGINITIS PANEL PCR BACT. VAGINOSIS DNA Not detected (qualifier value) Qualitative results are reported based on detection and quantitation of targeted organism markers which include: Lactobacillus spp. (L. crispatus and L. jensenii), Gardnerella vaginalis, Atopobium vaginae, Bacterial Vaginosis Associated Bacteria-2 (BVAB-2) and Megasphaera-1 ABDON SPECIES DNA Not detected (qualifier value) Abdon species not detected include: C. albicans, C. tropicalis, C. parapsilosis or C. dubliniensis ABDON KRUSEI DNA Not detected (qualifier value) No Abdon krusei detected ABDON GLABRATA DNA Not detected (qualifier value) No Abdon glabrata detected TRICHOMONAS VAG DNA Not detected (qualifier value) No Trichomonas vaginalis detected NOTE BD MAX Vaginal Panel has not been evaluated for patients under 18 years old. Results for these patients should be reviewed and assessed in accordance with clinical presentation to determine patient diagnosis. Normal [facility] Comment on above: Performed By: #### V PPCR #### [facility] ([id number]) [address], [address] [place] [address] ACUTE HEPATITIS PANELon 02-07 ANTI HCV W/PCR REFLX Non-Reactive Normal NRCT Pr [facility] Comment on above: Result Comment: If recent infection suspected, recommend repeat testing (>2 months). Prfzvt-kg-gixgjq ratio is <0.80. Performed By: #### [place], [address]-2, HSVP, 73665-4 #### [facility] ([id number]) [address], [address] [place] [address] HEPATITIS A IGM Non-Reactive Normal NRCT ProMi [facility] Comment on above: Performed By: #### [place] HP, 23377-2, HSVP, 25625-6 #### [facility] ([id number]) [address], [address] [place] [address] HEPATITIS B CORE IGM Negative Normal NEG [facility] Comment on above: Performed By: #### A HP, 26462-1, HSVP, 82667-8 #### [facility] ([id number]) [address], [address] [place] [address] HEPATITIS B SURF AG Negative Normal NEG [facility] Comment on above: Performed By: #### A HP, 61773-2, HSVP, 37690-7 #### [facility] ([id number]) [address], [address] [place] [address] CHLAMYDIA/GC BY PCRon 2023 CHLAMYDIA/GC BY PCR SPECIMEN SOURCE CERVIX CHLAMYDIA DNA(PCR) Negative (qualifier value) Chlamydia trachomatis not detected by nucleic acid amplification. This does not exclude the possibility of infection because results are dependent on adequate specimen collection. GONORRHOEAE DNA(PCR) Negative (qualifier value) Neisseria gonorrhoeae not detected by nucleic acid amplification. This does not exclude the possibility of infection because results are dependent on adequate specimen collection. Normal [facility] Comment on above: Performed By: #### C GS #### [facility] ([id number]) [address] [place] [address], [address] [place] [address] HERPES IgG PROFILEon 024 HERPES 1 IgG 5.6 AI High <0.9 [facility] Comment on above: Result Comment: Interpretation-------- <0.9 Negative 0.9 - 1.0 Equivocal >1.0 Positive Performed By: #### [place] HP, 72842-8, HSVP, 09585-3 #### [facility] ([id number]) [address] [place] [address], [address] [place] [address] HERPES 2 IgG <0.2 Normal <0.9 [facility] Comment on above: Result Comment: Interpretation-------- <0.9 Negative 0.9 - 1.0 Equivocal >1.0 Positive Performed By: #### [place] HP, 55505-4, HSVP, 97874-4 #### [facility] ([id number]) [address] [place] [address], [address] [place] [address] HIV 1+2 Ab+HIV1 p24 Ag IA Ql on 2024 HIV 1 and 2 Ab/Ag Screen Non-Reactive Normal NRCT [facility] Comment on above: Result Comment: This information has been disclosed to you from confidential records protected from disclosure by state law. You shall make no further disclosure of this information without the specific, written and informed release of the individual to whom it pertains, or as otherwise permitted by state law. A general authorization for the release of medical or other information is not sufficient for the purpose of the release of HIV test results or diagnoses. Performed By: #### A HP, 67393-3, HSVP, 95496-9 #### [facility] ([id number]) [address] [place] [address], [address] [place] [address] T. pallidum IgG+IgM IA Ql (S )on 2024 Syphilis Total <0.2 Normal 0.0-0.8 [facility] Comment on above: Result Comment: NON REACTIVE No serologic evidence of infection to Treponema pallidum (syphilis). Repeat testing may be considered in patients with suspected acute or primary syphilis in 2 to 4 weeks. Performed By: #### A HP, 21947-9, HSVP, 98788-7 #### [facility] ([id number]) [address] [place] [address], [address] [place] [address] VAGINITIS PANEL PCRon 2023 VAGINITIS PANEL PCR BACT. VAGINOSIS DNA Not detected (qualifier value) Qualitative results are reported based on detection and quantitation of targeted organism markers which include: Lactobacillus spp. (L. crispatus and L. jensenii), Gardnerella vaginalis, Atopobium vaginae, Bacterial Vaginosis Associated Bacteria-2 (BVAB-2) and Megasphaera-1 ABDON SPECIES DNA Not detected (qualifier value) Abdon species not detected include: C. albicans, C. tropicalis, C. parapsilosis or C. dubliniensis ABDON KRUSEI DNA Not detected (qualifier value) No Abdon krusei detected ABDON GLABRATA DNA Not detected (qualifier value) No Abdon glabrata detected TRICHOMONAS VAG DNA Not detected (qualifier value) No Trichomonas vaginalis detected NOTE BD MAX Vaginal Panel has not been evaluated for patients under 18 years old. Results for these patients should be reviewed and assessed in accordance with clinical presentation to determine patient diagnosis. Normal [facility] Comment on above: Performed By: #### V PPCR #### [facility] ([id number]) [address], [address] [place] [address] COVID Cepheidon 09-21-2023 SARS-CoV-2 (COVID-19) RNA MARY+probe Ql (Unsp spec) Negative [facility] No Panel Informationon 09-20 POC Influenza A (PCR) Negative [facility] POC Influenza B (PCR) Negative [facility] CNOVon 09-12-2023 CNOV Office Visit (URFHR) MELANIE ENNIS ([id number]) 1995 F Date Time Provider Department 09/12/23 2:20 PM URSULA MCGINNIS URFHR During your visit today, we recorded the following information about you: Temperature Pulse Blood pressure 98.5 degrees 100/minute 158/86 Ursula Mcginnis MD 09/12/2023 8:11 PM Signed [facility] NEW PATIENT HISTORY AND PHYSICAL EXAM PATIENT INFO: Melanie Ennis 28 year old REFERRING M.D.: Self PCP: Deion Grant III, MD, MD Consultation requested by self for an opinion regarding renal mass and my final recommendations will be communicated back to the requesting physician by way of shared medical record or letter via US mail. HPI 28 year old female w/h/o AERD, prediabetes, fatty liver, obesity, possible KIERAN referred for evaluation of small renal mass. Reports she was having symptoms concerning for diverticulitis which prompted imaging. CT Abdomen wo/w IV contrast (OSH) - enhancing nodule along the posterior cortex of the right kidney measuring 1.4 x 1.3 cm. Reports that she has been working on weight management recently and has lost 8 pounds in the last week. No known family history of RCC. Grandfather with hx of prostate cancer. Notes she urinates about 15-20 times per day and feels she constantly has a UTI. Was given Cipro for symptoms and this did not help. Also notes she no longer has the urge to void. Drinks lots of water daily. Wakes up frequently for urination--about 4 times per night. Occasionally has enuresis. Getting worked up for KIERAN. PATHOLOGY: None LAB: No results found for: CREAT No results found for: PSA No results found for: COLOR , CLARITY , UGLUC , UBILI , UKET , SPGR , UHB , UPH , UPROT , UROBILINOGEN , NITRITES , LEUKEST IMAGING: CT Abdomen wo/w IV contrast (OSH): Kidneys: There is an enhancing nodule along the posterior cortex of the right kidney measuring 1.4 x 1.3 cm. ALLERGIES: ALLERGIES Allergen Reactions Eggs [Egg] Unknown Lactose Other: See Comments Mushroom Anaphylaxis Sulfa (Sulfonamide * Hives, Vomiting MEDICATIONS: aspirin 325 mg tablet Take 325 mg by mouth once daily. Cetirizine (ZYRTEC) 10 mg cap Take by mouth. montelukast (SINGULAIR) 10 mg tablet Take 10 mg by mouth daily at bedtime. cholecalciferol (VITAMIN D-3) 50 mcg (2,000 unit) tablet Take 2,000 Units by mouth once daily. budesonide-formotero l (SYMBICORT) 160-4.5 mcg/actuation inhaler Inhale 2 Puffs as instructed two times a day. ALBUTEROL INHALATION Inhale as instructed. epinephrine (EPIPEN INJECTION) Inject intramuscularly. HISTORIES No past medical history on file. No family history on file. No past surgical history on file. SOCIAL HISTORY Social History Tobacco Use Smoking status: Never REVIEW OF SYSTEMS General: No weight loss, malaise or fevers., SEE HPI Gastrointestinal: See HPI Genitourinary: See HPI The remainder of the ROS was reviewed and was negative. PHYSICAL EXAMINATION BP 158/86 Pulse 100 Temp 36.9 ?C (98.5 ?F) SpO2 97% Constitutional: Well appearing, alert, in no acute distress, and well-hydrated, well nourished Gastrointestinal: non-distended Genitourinary: FEMALE EXAM: Exam NOT Indicated ASSESSMENT AND PLAN: Small renal mass I reviewed the results of the patient's imaging studies, demonstrating the images to the patient during today's visit. 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 I discussed the etiology and natural history of renal neoplasms and reviewed likelihood of malignant pathology based on size criteria using data from large surgical series. I explained the role of staging scans to evaluate for metastatic disease. I described the selected role of percutaneous renal mass biopsy, which is reserved for instances in which biopsy results will talent management specialist, while explaining the risks and limitations of renal mass biopsy. We discussed management options for clinically-localized renal neoplasms including partial or radical nephrectomy, active surveillance, or percutaneous ablation. I discussed the risks and benefits of each approach. I discussed the risks and benefits of partial nephrectomy, specifically discussing risks of hemorrhage and urine leak with partial nephrectomy, risk of conversion to radical nephrectomy, risk of infection, injury to adjacent organ, risk of VTE, and risk of cardiopulmonary complication including UT, CVA, or respiratory failure. I reviewed the risks of CKD after surgery and explained the benefit of nephron-sparing surgery when feasible in renal functional preservation. With respect to active surveillance, I reviewed the risks and benefits of this approach. I reviewed the likelihood of interval growth on surveillance and the low but non-zero risk of disease progression based on data from large surveillance (more content not included)... [facility] 09-12-2023 [facility] Telephone (URFHR) MELANIE ENNIS ([id number]) 1995 F Date Time Provider Department 09/12/23 URSULA MCGINNIS [facility] During your visit today, we recorded the following information about you: Lyndsay Arango 09/12/2023 3:19 PM Signed Order for MRI KIDNEY WO/W IVCON printed and given for patient to schedule at location closer to her home, patient will have report and scans sent to our office and will call office back to schedule VV. For 3 months. Allergies As of Date: 09/12/2023 Noted Allergy Reaction EGGS (EGG) 09/12/2023 16 - Unknown LACTOSE 09/12/2023 14 - Other: See Comments MUSHROOM 09/12/2023 10 - Anaphylaxis SULFA (SULFONAMIDE ANTIBIOTICS) 08/29/2013 4 - Hives 11 - Vomiting Date Reviewed: 09/12/2023 Reviewed by: Nirmala Kingston Ma - Fully Assessed Reason for Visit: MRI and VV follow up appointments 3 months [Other] Prescriptions as of 09/12/2023 - aspirin 325 mg tablet Take 325 mg by mouth once daily. - Cetirizine (ZYRTEC) 10 mg cap Take by mouth. - montelukast (SINGULAIR) 10 mg tablet Take 10 mg by mouth daily at bedtime. - cholecalciferol (VITAMIN D-3) 50 mcg (2,000 unit) tablet Take 2,000 Units by mouth once daily. - budesonide-formotero l (SYMBICORT) 160-4.5 mcg/actuation inhaler Inhale 2 Puffs as instructed two times a day. - epinephrine (EPIPEN INJECTION) Inject intramuscularly. - ALBUTEROL INHALATION Inhale as instructed. - iv contrast (will be provided with radiology test) MRI Kidney Inject, intravenously, once for 1 dose. No IV access, insert saline lock prior to the beginning of sedation, infusion, injection of imaging exam. Discontinue saline lock post exam. If Pt. has a central line or IVAD, may access for administration according to line specific nursing protocol. Once exam is complete flush line and de-access according to line specific nursing protocol in the MR contrast administration guidelines link. - oxybutynin (DITROPAN) 5 mg tablet Take 1 tablet by mouth two times a day as needed (overactive bladder symptoms). Problem List As Of Date 09/12/2023 Noted Resolved New daily persistent headache [G44.52] 10/08/2013 Fatigue [R53.83] 10/08/2013 Obesity [E66.9] 10/08/2013 Encounter Status:Closed by LYNDSAY ARANGO [facility] Telephone (URFHR) MELANIE ENNIS ([id number]) 1995 F Date Time Provider Department 08/28/23 URSULA MCGINNIS URR During your visit today, we recorded the following information about you: Yoni Bennettjuan francisco Schmid 08/28/2023 2:03 PM Signed Left voice message to return call to schedule office visit with Dr. Mcginnis, per referral notes. Will await return call. Allergies As of Date: 08/28/2023 Noted Allergy Reaction SULFA (SULFONAMIDE ANTIBIOTICS) 08/29/2013 4 - Hives 11 - Vomiting Date Reviewed: 08/29/2013 Reviewed by: Anastasia Ricardo MA - Fully Assessed Reason for Visit: Appointment [186] Problem List As Of Date 08/28/2023 Noted Resolved New daily persistent headache [G44.52] 10/08/2013 Fatigue [R53.83] 10/08/2013 Obesity [E66.9] 10/08/2013 Encounter Status:Closed by ROSEANN BENNETT on 08/28/23 Normal [facility] Telephone Encounteron 2023 Plate Straightener Authentication Interface Message Text Patient has not been seen by this specialist in more than 1 year. Please contact patient to schedule office visit. Thank you Normal [facility] [employer] [facility] MR KNEE RIGHT WO IV CONTRAST [...] RT 4V*on 04-21-2023 XR knee RT 4V* [facility] [address] [place] [address] XRay Report Signed Patient: Melanie Ennis MR#: [id number] : 1995 Acct:[id number] Age/Sex: 28 / F ADM Date: 04/21/23 Loc: XDUCLY Room: Type: [facility] Attending Dr: Maribel [place] Copies to: CHELY [...] Essie Rdz M.D.04/21/2023 12:14 PM Dictation Location: [place] [address] Transcribed By: [facility] 04/21/23 121 Dictated By: Essie Rdz MD 04/21/231212 Signed By: 04/21/23 1214 Normal [facility] XR knee RT 4V* [facility] [employer] Other XR knee RT 4V* [facility] Main [facility] [employer] Other XR knee RT 4V* [address] [facility] [employer] Other XR knee RT 4V* [place] [address] No rt [employer] Other XR knee RT 4V* XRay Report [employer] Other XR knee RT 4V* Signed [employer] Other XR knee RT 4V* Patient: Melanie Ennis MR#: [id number] [employer] Other XR knee RT 4V* 8702 [employer] Other XR knee RT 4V* : 1995 Acct:[id number] [employer] Other XR knee RT 4V* Age/Sex: 28 / F ADM Date: 04/21/23 [employer] Other XR knee RT 4V* Loc: XDUCLY [facility]* Attending Dr: Maribel MO [employer] Other XR knee RT 4V* Copies to: CHELY Miranda [employer] Other XR knee RT 4V* Ordering Provider: CHELY Miranda [employer] Other XR knee RT 4V* Date of Service: 04/21/23 [employer] Other XR knee RT 4V* XR/XR knee RT 4V*: RIGHT KNEE PAIN [employer] Other XR knee RT 4V* RIGHT KNEE - 4 views [employer] Other XR knee RT 4V* COMPARISON: None [employer] Other XR knee RT 4V* CLINICAL DATA: Patient felt a pop at the right knee yesterday and the day before and has had pain at [employer] Other XR knee RT 4V* the knee since. [employer] Other XR knee RT 4V* AP, lateral and both oblique views were obtained. These no acute fracture or dislocation. There is [employer] Other XR knee RT 4V* minor squaring off of the articular margins at the posterior patella. There is a trace amount joint [employer] Other XR knee RT 4V* fluid. No focal soft tissue abnormalities are seen. [employer] Other XR knee RT 4V* XR/XR knee RT 4V* [employer] Other XR knee RT 4V* IMPRESSION: [employer] Other XR knee RT 4V* NO ACUTE BONY FINDINGS. [employer] Other XR knee RT 4V* Impression dictated by: Essie Rdz M.D.04/21/2023 12:14 PM [employer] Other XR knee RT 4V* Dictation Location: [place] [address] [employer] Other XR knee RT 4V* Transcribed By: PWS 04/21/23 1214 [employer] Other XR knee RT 4V* Dictated By: Essie Rdz MD 04/21/23 [facility] [employer] Other XR knee RT 4V* Signed By: [employer] Other XR knee RT 4V* 04/21/23 1214 [employer] Other CBC with Diffon 04-04-2023 Abs. Basophil 0.04 k/uL Normal 0.00-0.20 [facility] Comment on above: Performed By: #### SALLY Hayes CDP, CP, TROPI #### [facility] [address] [place] [address] Field Recorder: Michael Ordonez MD Abs.Imm.Granulocyte <0.03 Normal 0.00-0.30 [facility] Comment on above: Performed By: #### SALLY Hayes CDP, CP, TROPI #### [address] [place], [place] [address] Field Recorder: Michael Ordonez MD Abs.Neutrophil (Seg) 5.05 k/uL Normal 1.50-8.10 [facility] Comment on above: Performed By: #### M G, DIME, CDP, CP, TROPI #### [address] [place], [place] [address] Field Recorder: Michael Ordonez MD Basophils/100 WBC (Bld) 1 % Normal 0-2 [facility] Comment on above: Performed By: #### M G, DIME, CDP, CP, TROPI #### [address] [place], [place] [address] Field Recorder: Michael Ordonez MD Eosinophils (Bld) [#/Vol] 0.32 10*3/uL Normal 0.00-0.44 [facility] Comment on above: Performed By: #### M G, DIME, CDP, CP, TROPI #### [address] [place], [place] [address] Field Recorder: Michael Ordonez MD Eosinophils/100 WBC (Bld) 4 % Normal 1-4 [facility] Comment on above: Performed By: #### M G, DIME, CDP, CP, TROPI #### [address] [place], [place] [address] Field Recorder: Michael Ordonez MD Erythrocyte distribution width (RBC) [Ratio] 14.3 % Normal 11.8-14.4 [facility] Comment on above: Performed By: #### M G, DIME, CDP, CP, TROPI #### [address] [place], [facility] Field Recorder: Michael Ordonez MD Hematocrit (Bld) [Volume fraction] 36.1 % Low 36.3-47.1 [facility] Comment on above: Performed By: #### M G, DIME, CDP, CP, TROPI #### [facility] [address] [place] [address] [place] [place], [place] [id number] Field Recorder: Michael Ordonez MD Hemoglobin (Bld) [Mass/Vol] 11.6 g/dL Low 11.9-15.1 [facility] Comment on above: Performed By: #### M G, DIME, CDP, CP, TROPI #### [address] [place], [place] [address] Field Recorder: Michael Ordonez MD Immature granulocytes/100 WBC (Bld) 0 % Normal 0 [facility] Comment on above: Performed By: #### M G, DIME, CDP, CP, TROPI #### [address] [place], [facility] Field Recorder: Michael Ordonez MD Lymphocytes (Bld) [#/Vol] 1.94 10*3/uL Normal 1.10-3.70 [facility] Comment on above: Performed By: #### M G, DIME, CDP, CP, TROPI #### [address] [place], [place] [id number] Field Recorder: Michael Ordonez MD Lymphocytes/100 WBC (Bld) 25 % Normal 24-43 [facility] Comment on above: Performed By: #### M G, DIME, CDP, CP, TROPI #### [facility] [address] [place] [address] Dr[place], [facility] Field Recorder: Michael Ordonez MD MCH (RBC) [Entitic mass] 27.6 pg Normal 25.2-33.5 [facility] Comment on above: Performed By: #### M G, DIME, CDP, CP, TROPI #### [address] [place], [place] [id number] Field Recorder: Michael Ordonez MD MCHC (RBC) [Mass/Vol] 32.1 g/dL Normal 28.4-34.8 [facility] Comment on above: Performed By: #### M G, DIME, CDP, CP, TROPI #### [facility] [address] [place], [place] [id number] Field Recorder: Michael Ordonez MD MCV (RBC) [Entitic vol] 86.0 fL Normal 82.6-102.9 [facility] Comment on above: Performed By: #### M G, DIME, CDP, CP, TROPI #### [address] [place], [place] [address]83 Field Recorder: Michael Ordonez MD Monocytes (Bld) [#/Vol] 0.43 10*3/uL Normal 0.10-1.20 [facility] Comment on above: Performed By: #### M G, DIME, CDP, CP, TROPI #### [address] [place], [place] [id number] Field Recorder: Michael Ordonez MD Monocytes/100 WBC (Bld) 6 % Normal 3-12 [facility] Comment on above: Performed By: #### M G, DIME, CDP, CP, TROPI #### [address] [place] [address] Field Recorder: Michael Ordonez MD Neutrophil (Seg) 64 % Normal 36-65 [facility] Comment on above: Performed By: #### M G, DIME, CDP, CP, TROPI #### [address] [place], [place] [id number] Field Recorder: Michael Ordonez MD NRBC Automated 0.0 per 100 WBC Normal 0.0 [facility] Comment on above: Performed By: #### M G, DIME, CDP, CP, TROPI #### [address] [place] [address] Field Recorder: Michael Ordonez MD Platelet mean volume (Bld) [Entitic vol] 9.7 fL Normal 8.1-13.5 [facility] Comment on above: Performed By: #### M G, DIME, CDP, CP, TROPI #### [facility] [address] [place], [place] [id number] Field Recorder: Michael Ordonez MD Platelets (Bld) [#/Vol] 333 10*3/uL Normal 138-453 [facility] Comment on above: Performed By: #### M G, DIME, CDP, CP, TROPI #### [facility] [address] [place], [place] [id number] Field Recorder: Michael Ordonez MD RBC (Bld) [#/Vol] 4.20 10*6/uL Normal 3.95-5.11 [facility] Comment on above: Performed By: #### Raúl Steel, DIME, CDP, CP, TROPI #### [facility] [address] [place], [place] [id number] Field Recorder: Michael Ordonez MD WBC (Bld) [#/Vol] 7.8 10*3/uL Normal 3.5-11.3 [facility] Comment on above: Performed By: #### M Damián, DIME, CDP, CP, TROPI #### [facility] [address] [place], [place] [id number] Field Recorder: Michael Ordonez MD Comp Metabolic Profon 2022 Albumin [Mass/Vol] 4.3 g/dL Normal 3.5-5.2 [facility] Comment on above: Performed By: #### M G, DIME, CDP, CP, TROPI #### [facility] [address] [place] [address] Field Recorder: Michael Ordonez MD Albumin/Glob Ratio 1.5 Normal 1.0-2.5 [facility] Comment on above: Performed By: #### M G, DIME, CDP, CP, TROPI #### [facility] [address] [place], [place] [id number] Field Recorder: Michael Ordonez MD Alkaline Phos 80 U/L Normal 35-104 [facility] Comment on above: Performed By: #### M G, DIME, CDP, CP, TROPI #### [facility] [address] [place], [place] [id number] Field Recorder: Michael Ordonez MD ALT [Catalytic activity/Vol] 13 U/L Normal 5-33 [facility] Comment on above: Performed By: #### M G, DIME, CDP, CP, TROPI #### [address] [place], [place] 998[address]83 Field Recorder: Michael Ordonez MD Anion gap [Moles/Vol] 9 mmol/L Normal 9-17 [facility] Comment on above: Performed By: #### M G, DIME, CDP, CP, TROPI #### [address] [place], [place] [id number] Field Recorder: Michael Ordonez MD AST [Catalytic activity/Vol] 12 U/L Normal <32 [facility] Comment on above: Performed By: #### M G, DIME, CDP, CP, TROPI #### [facility] [address] [place] [address] [place] [address] Field Recorder: Michael Ordonez MD Bilirubin [Mass/Vol] 0.2 mg/dL Low 0.3-1.2 [facility] Comment on above: Performed By: #### M G, DIME, CDP, CP, TROPI #### [facility] [address] [place], [place] [id number] Field Recorder: Michael Ordonez MD BUN/CRE Ratio 8 Low 9-20 [facility] Comment on above: Performed By: #### M G, DIME, CDP, CP, TROPI #### [facility] [address] [place], [place] [id number] Field Recorder: Michael Ordonez MD Calcium [Mass/Vol] 9.5 mg/dL Normal 8.6-10.4 [facility] Comment on above: Performed By: #### M G, DIME, CDP, CP, TROPI #### [facility] [address] [place], [place] 947[address]83 Field Recorder: Michael Ordonez MD Chloride [Moles/Vol] 103 mmol/L Normal 98-107 [facility] Comment on above: Performed By: #### M G, DIME, CDP, CP, TROPI #### [facility] [address] [place], [place] [id number] Field Recorder: Michael Ordonez MD CO2 [Moles/Vol] 26 mmol/L Normal 20-31 [facility] Comment on above: Performed By: #### M G, DIME, CDP, CP, TROPI #### [facility] [address] [place], [place] [id number] Field Recorder: Michael Ordonez MD Creatinine [Mass/Vol] 0.6 mg/dL Normal 0.5-0.9 [facility] Comment on above: Performed By: #### M G, DIME, CDP, CP, TROPI #### [facility] [address] [place] [address] Field Recorder: Michael Ordonez MD GFR/1.73 sq M.predicted among non-blacks MDRD (S/P/Bld) [Vol rate/Area] mL/min/{1.73_m2} Normal >60 [facility] Comment on above: Result Comment: These [...] M G, DIME, CDP, CP, TROPI #### [facility] [address] [place], [place] [phone] Field Recorder: Michael Ordonez MD Glucose [Mass/Vol] 96 mg/dL Normal 70-99 [facility] Comment on above: Performed By: #### M G, DIME, CDP, CP, TROPI #### [facility] [address] [place] [address] Field Recorder: Michael Ordonez MD Potassium [Moles/Vol] 4.4 mmol/L Normal 3.7-5.3 [facility] Comment on above: Performed By: #### M G, DIME, CDP, CP, TROPI #### [address] [place] [address] Field Recorder: Michael Ordonez MD Protein [Mass/Vol] 7.1 g/dL Normal 6.4-8.3 [facility] Comment on above: Performed By: #### M G, DIME, CDP, CP, TROPI #### [address] [place], [place] 8533683 Field Recorder: Michael Ordonez MD Sodium [Moles/Vol] 138 mmol/L Normal 135-144 [facility] Comment on above: Performed By: #### M G, DIME, CDP, CP, TROPI #### [facility] [address] [place] [address] Field Recorder: Michael Ordonez MD Urea nitrogen [Mass/Vol] 5 mg/dL Low 6-20 [facility] Comment on above: Performed By: #### M G, DIME, CDP, CP, TROPI #### [facility] [address] [place], [place] 6292783 Field Recorder: Michael Ordonez MD D-Dimer Teston 09-26-2023 D-Dimer Test 0.37 ug/mL FEU Normal 0.00-0.59 [facility] Comment on above: Result Comment: When [...] M SALLY Steel CDP, CP, TROPI #### [facility] [address] [address] Field Recorder: Michael Ordonez MD Magnesiumon 04-04-2023 Magnesium [Mass/Vol] 1.8 mg/dL Normal 1.6-2.6 [facility] Comment on above: Performed By: #### M SALLY Steel CDP, CP, TROPI #### [facility] [address] [place] [address] Field Recorder: Michael Ordonez MD [id number] 04-04-2023 SARS-CoV-2 (COVID-19) RNA MARY+probe Ql (Unsp spec) Not detected Normal NOTDET [facility] Comment on above: Result Comment: Rapid [...] management decisions. Fact sheet for Healthcare Providers: https://www.fda.gov/media/180150/download Fact sheet for Patients: https://www.fda.gov/media/689537/download Methodology: Isothermal Nucleic Acid Amplification Performed By: #### C OVRB #### [address] [place] [id number] Field Recorder: Michael Ordonez MD Thyroid Stim. Horm.on 2022 Thyroid Stim. Horm. 0.88 uIU/mL Normal 0.30-5.00 [facility] Comment on above: Performed By: #### T SH #### [address] [place] [address] Field Recorder: Michael Ordonez MD Troponinon 04-04-2023 Troponin, High Sens 6 ng/L Normal 0-14 [facility] Comment on above: Result Comment: High Sensitivity Troponin values cannot be compared with other Troponin methodologies. Performed By: #### M G, DIME, CDP, CP, TROPI #### [address] [place] [address] Field Recorder: Michael Ordonez MD Urinalysis, Routineon 2022 Bilirubin, SemiQt,Ur Negative Normal NEG [facility] Comment on above: Performed By: #### U MICAO, UA #### [address] [place], [place] 3452483 Field Recorder: Michael Ordonez MD Blood, Urine 3+ Abnormal NEG [facility] Comment on above: Performed By: #### U MICAO, UA #### [facility] [address] [place] [address] Field Recorder: Michael Ordonez MD Clarity (U) Clear Normal CLEAR [facility] Comment on above: Performed By: #### U MICAO, UA #### [facility] [address] [place], [place] 5412183 Field Recorder: Michael Ordonez MD Color (U) Yellow Normal YEL [facility] Comment on above: Performed By: #### U MICAO, UA #### [facility] [address] [place], [place] 4023783 Field Recorder: Michael Ordonez MD Glucose Ql (U) Negative Normal NEG [facility] Comment on above: Performed By: #### U MICAO, UA #### [facility] [address] [place], [place] 8829283 Field Recorder: Michael Ordonez MD Ketones Ql (U) Negative Normal NEG [facility] Comment on above: Performed By: #### U MICAO, UA #### [facility] [address] [place] [address] [place], [place] 9987483 Field Recorder: Michael Ordonez MD Leukocyte esterase Test strip Ql (U) Negative Normal NEG [facility] Comment on above: Performed By: #### U MICAO, UA #### [facility] [address] [place], [place] 2094983 Field Recorder: Michael Ordonez MD Nitrite,Ur Negative Normal NEG [facility] Comment on above: Performed By: #### U MICAO, UA #### [facility] [address] [place], [place] 6188983 Field Recorder: Michael Ordonez MD PH,Ur 7.0 Normal 5.0-9.0 [facility] Comment on above: Performed By: #### U MICAO, UA #### [facility] [address] [place], [place] [phone] Field Recorder: Michael Ordonez MD Protein Ql (U) Negative Normal NEG [facility] Comment on above: Performed By: #### U MICAO, UA #### [facility] [address] [place], [facility] Field Recorder: Michael Ordonez MD Spec. [place],Ur 1.010 Normal 1.010-1.020 [facility] Comment on above: Performed By: #### U MICAO, UA #### [facility] [address] [place] [address] Field Recorder: Michael Ordonez MD Urobilinogen,Ur Normal Normal 0.0-1.0 [facility] Comment on above: Performed By: #### U MICAO, UA #### [address] [place], [place] 6674883 Field Recorder: Michael Ordonez MD Urinalysis,Microon 3 Bacteria TRACE Abnormal NONE [facility] Comment on above: Performed By: #### U MICAO, UA #### [facility] [address] [place] [address] Dr[place], [place] [address] Field Recorder: Michael Ordonez MD Epithelial cells LM Ql (Urine sed) 0 TO 2 Normal 0-25 [facility] Comment on above: Performed By: #### U MICAO, UA #### [facility] [address] [place], [place] [phone] Field Recorder: Michael Ordonez MD Urine RBC's 5 TO 10 Normal 0-2 [facility] Comment on above: Performed By: #### U MICAO, UA #### [facility] [address] [address] Field Recorder: Michael Ordonez MD Urine WBC's None Normal 0-5 [facility] Comment on above: Performed By: #### U NHUNG DONOHUE #### [facility] [address] [place] [address] Field Recorder: Michael Ordonez MD XR CHEST PORTABLEon 04-04-20 [...] Rudy Jacobo MD 04/04/23 Final result Normal [facility] CBC AUTO DIFFon 11-18-2022 BASO # 0.1 103/ul Normal 0.0-0.1 [facility] Comment on above: Performed By: #### C BC #### [facility] [address] [address] [address] Laura Duarte Basophils/100 WBC (Bld) 0.8 % Normal 0.2-2.0 [facility] Comment on above: Performed By: #### C BC #### [facility] [address] [address] [address] Laura Duarte EO # 1.0 103/ul Critically high 0.0-0.7 [facility] Comment on above: Performed By: #### C BC #### [facility] [address] [address] [address] Laura Duarte Eosinophils/100 WBC (Bld) 11.5 % Critically high 0.9-7.0 [facility] Comment on above: Performed By: #### C BC #### [facility] [address] [address] [address] Laura Duarte Erythrocyte distribution width (RBC) [Ratio] 13.2 % Normal 11.0-15.0 [facility] Comment on above: Performed By: #### C BC #### [facility] [address] [place] [address] Dr. Laura Duarte Hematocrit (Bld) [Volume fraction] 37.6 % Normal 36.0-48.0 [facility] Comment on above: Performed By: #### C BC #### [facility] [address] [place] [address] Dr. Laura Duarte Hemoglobin (Bld) [Mass/Vol] 12.3 g/dL Normal 12.0-16.0 [facility] Comment on above: Performed By: #### C BC #### [facility] [address] [place] [address] Dr. Laura Duarte IG # 0.02 10e3/ul Normal 0.00-0.03 [facility] Comment on above: Performed By: #### C BC #### [facility] [address] [place] [address] Dr. Laura Duarte IG % 0.2 % Normal 0.0-0.5 [facility] Comment on above: Performed By: #### C BC #### [facility] [address] [place] [address] Dr. Laura Duarte LYMPH # 2.7 103/ul Normal 1.2-3.8 [facility] Comment on above: Performed By: #### C BC #### [facility] [address] [place] [address] Dr. Laura Duarte Lymphocytes/100 WBC (Bld) 30.3 % Normal 20.5-60.0 [facility] Comment on above: Performed By: #### C BC #### [facility] [address] [place] [address] Dr. Laura Duarte MANUAL DIFF REQ NO Normal [facility] Comment on above: Performed By: #### C BC #### [facility] [address] [place] [address] Dr. Laura Duarte MCH (RBC) [Entitic mass] 27.9 pg Normal 26.7-34.0 [facility] Comment on above: Performed By: #### C BC #### [facility] [address] [place] [address] Dr. Laura Duarte MCHC (RBC) [Mass/Vol] 32.7 g/dL Normal 29.9-35.2 [facility] Comment on above: Performed By: #### C BC #### [facility] [address] [place] [address] Dr. Laura Duarte MCV (RBC) [Entitic vol] 85.3 fL Normal 81.0-99.0 [facility] Comment on above: Performed By: #### C BC #### [facility] [address] [place] [address] Dr. Laura Duarte MONO # 0.5 103/ul Normal 0.3-0.8 [facility] Comment on above: Performed By: #### C BC #### [facility] [address] [place] [address] Dr. Laura Duarte Monocytes/100 WBC (Bld) 5.0 % Normal 1.7-12.0 [facility] Comment on above: Performed By: #### C BC #### [facility] [address] [place] [address] Dr. Laura Duarte NEUT # 4.7 103/ul Normal 1.4-6.5 [facility] Comment on above: Performed By: #### C BC #### [facility] [address] [place] [address] Dr. Laura Duarte Neutrophils/100 WBC (Bld) 52.2 % Normal 43.0-75.0 [facility] Comment on above: Performed By: #### C BC #### [facility] [address] [place] [address] Dr. Laura Duarte Platelet mean volume (Bld) [Entitic vol] 9.9 fL Normal 9.5-13.5 [facility] Comment on above: Performed By: #### C BC #### [facility] [address] [place] [address] Dr. Laura Duarte PLT 363 103/ul Normal 150-450 [facility] Comment on above: Performed By: #### C BC #### [facility] [address] [place] [address] Dr. Laura Duarte RBC 4.41 106/ul Normal 4.20-5.40 [facility] Comment on above: Performed By: #### C BC #### [facility] [address] [place] [address] Dr. Laura Duarte WBC 9.0 103/ul Normal 4.0-11.0 [facility] Comment on above: Performed By: #### C BC #### [facility] [address] [place] [address] Dr. Larua Duarte PROF 14(COMP METB)on 023 Albumin [Mass/Vol] 3.7 g/dL Normal 3.4-5.0 [facility] Comment on above: Performed By: #### P TT, PT #### [facility] [address] [place] [address] Dr. Laura Duarte Albumin/Globulin [Mass ratio] 1.0 {ratio} Normal [facility] Comment on above: Performed By: #### P TT, PT #### [facility] [address] [place] [address] Dr. Laura Duarte ALP [Catalytic activity/Vol] 89 U/L Normal 46-116 [facility] Comment on above: Performed By: #### P TT, PT #### [facility] [address] [place] [address] Dr. Laura Duarte ALT [Catalytic activity/Vol] 22 U/L Normal 14-59 [facility] Comment on above: Performed By: #### P TT, PT #### [facility] [address] [place] [address] Dr. Laura Duarte Anion gap [Moles/Vol] 13.8 mmol/L Normal Th [facility] Comment on above: Performed By: #### P TT, PT #### [facility] [address] [place] [address] Dr. Laura Duarte AST [Catalytic activity/Vol] 13 U/L Critically low 15-37 [facility] Comment on above: Performed By: #### P TT, PT #### [facility] [address] [place] [address] Dr. Laura Duarte Bilirubin [Mass/Vol] 0.2 mg/dL Normal 0.2-1.0 [facility] Comment on above: Performed By: #### P TT, PT #### [facility] [address] [place] [address] Dr. Laura Duarte Calcium [Mass/Vol] 9.0 mg/dL Normal 8.5-10.1 [facility] Comment on above: Performed By: #### P TT, PT #### [facility] [address] [place] [address] Dr. Laura Duarte Chloride [Moles/Vol] 106 mmol/L Normal 98-107 [facility] Comment on above: Performed By: #### P TT, PT #### [facility] [address] [place] [address] Dr. Laura Duarte CO2 [Moles/Vol] 27.3 mmol/L Normal 21.0-32.0 [facility] Comment on above: Performed By: #### P TT, PT #### [facility] [address] [place] [address] Dr. Laura Duarte Creatinine [Mass/Vol] 0.77 mg/dL Normal 0.55-1.02 [facility] Comment on above: Performed By: #### P TT, PT #### [facility] [address] [place] [address] Dr. Laura Duarte EGFR-AF CITIZEN [place] >60 Normal >=60 [facility] Comment on above: Performed By: #### P TT, PT #### [facility] [address] [place] [address] Dr. Laura Duarte EGFR-NON AF CITIZEN OF [place] >60 Normal >=60 [facility] Comment on above: Performed By: #### P TT, PT #### [facility] [address] [place] [address] Dr. Laura Duarte Globulin (S) [Mass/Vol] 3.8 g/dL Normal [facility] Comment on above: Performed By: #### P TT, PT #### [facility] [address] [place] [address] Dr. Laura Duarte Glucose [Mass/Vol] 95 mg/dL Normal 74-106 [facility] Comment on above: Performed By: #### P TT, PT #### [facility] [address] [address] [address] Laura Duarte Potassium [Moles/Vol] 4.1 mmol/L Normal 3.5-5.1 [facility] Comment on above: Performed By: #### P TT, PT #### [facility] [address] [place] [address] Dr. Laura Duarte Protein [Mass/Vol] 7.5 g/dL Normal 6.4-8.2 [facility] Comment on above: Performed By: #### P TT, PT #### [facility] [address] [place] [address] Dr. Laura Duarte Sodium [Moles/Vol] 143 mmol/L Normal 136-145 [facility] Comment on above: Performed By: #### P TT, PT #### [facility] [address] [place] [address] Dr. Laura Duarte Urea nitrogen [Mass/Vol] 6.0 mg/dL Critically low 7.0-18.0 [facility] Comment on above: Performed By: #### P TT, PT #### [facility] [address] [place] [address] Dr. Laura Duarte Urea nitrogen/Creatinine [Mass ratio] 7.8 mg/mg Normal [facility] Comment on above: Performed By: #### P TT, PT #### [facility] [address] [place] [address] Dr. Laura Duarte PROTIMEon 11-18-2022 INR Coag (PPP) [Relative time] {INR} Normal [facility] Comment on above: Performed By: #### P TT, PT #### [facility] [address] [place] [address] Dr. Laura Duarte INR GUIDELINES SEE BELOW Normal [facility] Comment on above: Result Comment: [place] RED INR: 2.0 - 3.0 CONDITIONS NOT LISTED BELOW 2.5 - 3.5 FOR PROSTHETIC HEART VALVE REPLACEMENT 2.5 - 3.5 RECURRENT THROMBOSIS Performed By: #### P TT, PT #### [facility] [address] [address] [address] Laura Duarte PT Coag (PPP) [Time] 9.8 s Normal 9.0-11.6 [facility] Comment on above: Performed By: #### P TT, PT #### [facility] [address] [place] [address] Dr. Laura Duarte PTTon 11-18-2022 aPTT Coag (Bld) [Time] 34.4 s Normal 22.3-36.2 Th [facility] Comment on above: Performed By: #### P TT, PT #### [facility] [address] [place] [address] Dr. Laura Duarte XR CHEST 2 Von [...] LEONARD CERVANTES Date: 2022-11-18 12:35 Normal [facility] CBC AUTO DIFFon 03-30-2022 BASO # 0.1 103/ul Normal 0.0-0.1 [facility] Comment on above: Performed By: #### P TT, PT #### [facility] [address] [place] [address] Dr. Laura Duarte Basophils/100 WBC (Bld) 0.6 % Normal 0.2-2.0 [facility] Comment on above: Performed By: #### P TT, PT #### [facility] [address] [place] [address] Dr. Laura Duarte EO # 0.7 103/ul Normal 0.0-0.7 [facility] Comment on above: Performed By: #### P TT, PT #### [facility] [address] [place] [address] Dr. Laura Duarte Eosinophils/100 WBC (Bld) 7.8 % Critically high 0.9-7.0 [facility] Comment on above: Performed By: #### P TT, PT #### [facility] [address] [place] [address] Dr. Laura Duarte Erythrocyte distribution width (RBC) [Ratio] 14.0 % Normal 11.0-15.0 [facility] Comment on above: Performed By: #### P TT, PT #### [facility] [address] [place] [address] Dr. Laura Duarte Hematocrit (Bld) [Volume fraction] 37.8 % Normal 36.0-48.0 [facility] Comment on above: Performed By: #### P TT, PT #### [facility] [address] [place] [address] Dr. Laura Duarte Hemoglobin (Bld) [Mass/Vol] 12.2 g/dL Normal 12.0-16.0 [facility] Comment on above: Performed By: #### P TT, PT #### [facility] [address] [place] [address] Dr. Laura Duarte IG # 0.02 10e3/ul Normal 0.00-0.03 [facility] Comment on above: Performed By: #### P TT, PT #### [facility] [address] [place] [address] Dr. Laura Duarte IG % 0.2 % Normal 0.0-0.5 [facility] Comment on above: Performed By: #### P TT, PT #### [facility] [address] [place] [address] Dr. Laura Duarte LYMPH # 2.4 103/ul Normal 1.2-3.8 [facility] Comment on above: Performed By: #### P TT, PT #### [facility] [address] [place] [address] Dr. Laura Duarte Lymphocytes/100 WBC (Bld) 26.2 % Normal 20.5-60.0 [facility] Comment on above: Performed By: #### P TT, PT #### [facility] [address] [place] [address] Dr. Laura Duarte MANUAL DIFF REQ NO Normal [facility] Comment on above: Performed By: #### P TT, PT #### [facility] [address] [place] [address] Dr. Laura Duarte MCH (RBC) [Entitic mass] 27.6 pg Normal 26.7-34.0 [facility] Comment on above: Performed By: #### P TT, PT #### [facility] [address] [place] [address] Dr. Laura Duarte MCHC (RBC) [Mass/Vol] 32.3 g/dL Normal 29.9-35.2 [facility] Comment on above: Performed By: #### P TT, PT #### [facility] [address] [place] [address] Dr. Laura Duarte MCV (RBC) [Entitic vol] 85.5 fL Normal 81.0-99.0 [facility] Comment on above: Performed By: #### P TT, PT #### [facility] [address] [place] [address] Dr. Laura Duarte MONO # 0.6 103/ul Normal 0.3-0.8 [facility] Comment on above: Performed By: #### P TT, PT #### [facility] [address] [place] [address] Dr. Laura Duarte Monocytes/100 WBC (Bld) 6.5 % Normal 1.7-12.0 [facility] Comment on above: Performed By: #### P TT, PT #### [facility] [address] [place] [address] Dr. Laura Duarte NEUT # 5.4 103/ul Normal 1.4-6.5 [facility] Comment on above: Performed By: #### P TT, PT #### [facility] [address] [place] [address] Dr. Laura Duarte Neutrophils/100 WBC (Bld) 58.7 % Normal 43.0-75.0 [facility] Comment on above: Performed By: #### P TT, PT #### [facility] [address] [place] [address] Dr. Laura Duarte Platelet mean volume (Bld) [Entitic vol] 11.6 fL Normal 9.5-13.5 [facility] Comment on above: Performed By: #### P TT, PT #### [facility] [address] [place] [address] Dr. Laura Duarte PLT 321 103/ul Normal 150-450 [facility] Comment on above: Performed By: #### P TT, PT #### [facility] [address] [place] [address] Dr. Laura Duarte RBC 4.42 106/ul Normal 4.20-5.40 [facility] Comment on above: Performed By: #### P TT, PT #### [facility] [address] [place] [address] Dr. Laura Duarte WBC 9.3 103/ul Normal 4.0-11.0 [facility] Comment on above: Performed By: #### P TT, PT #### [facility] [address] [place] [address] Dr. Laura Duarte GLYCOHEMOGLOBIN A1Con 2021 ADA RECOMMENDATION SEE BELOW Normal [facility] Comment on above: Result Comment: ADA RECOMMENDED LIMIT 4.0 - 6.0 ADA THERAPEUTIC TARGET < 7.0 ACTION SUGGESTED > 7.0 Performed By: #### A 1C #### [facility] [address] [place] [address] Dr. Laura Duarte Glucose [Mass/Vol] 111 mg/dL Normal [facility] Comment on above: Performed By: #### A 1C #### [facility] [address] [place] [address] Dr. Laura Duarte HbA1c (Bld) [Mass fraction] 5.5 % Normal 4.5-6.2 [facility] Comment on above: Performed By: #### A 1C #### [facility] [address] [place] [address] Dr. Laura Duarte LIPID PROFILEon 03-30-2022 CHOL-HDL RATIO NORM SEE BELOW Normal [facility] Comment on above: Result Comment: 3.3 - 4.4 LOW RISK 4.4 - 7.1 AVERAGE RISK 7.1 - 11.0 MODERATE RISK >11.0 HIGH RISK Performed By: #### T SH, LIVER, LIPID, BMP #### [facility] [address] [address] [address] Laura Duarte Cholesterol [Mass/Vol] 174 mg/dL Normal <=200 [facility] Comment on above: Performed By: #### T SH, LIVER, LIPID, BMP #### [facility] [address] [address] [address] Laura Duarte Cholesterol in HDL [Mass/Vol] 49 mg/dL Normal 40-60 [facility] Comment on above: Performed By: #### T SH, LIVER, LIPID, BMP #### [facility] [address] [address] [address] Laura Duarte Cholesterol in LDL [Mass/Vol] 113.2 mg/dL Normal [facility] Comment on above: Performed By: #### T SH, LIVER, LIPID, BMP #### [facility] [address] [place] [address] Dr. Laura Duarte Cholesterol.total/Chol esterol in HDL [Mass ratio] 3.6 {ratio} Normal [facility] Comment on above: Performed By: #### T SH, LIVER, LIPID, BMP #### [facility] [address] [place] [address] Dr. Laura Duarte HDL NORMAL > or = 60 mg/dl - LOW CARDIOVASCULAR RISK <40 mg/dl - HIGH CARDIOVASCULAR RISK Normal [facility] Comment on above: Performed By: #### T SH, LIVER, LIPID, BMP #### [facility] [address] [place] [address] Dr. Laura Duarte LDL CALC NORMAL SEE BELOW Normal [facility] Comment on above: Result Comment: <100 mg/dl OPTIMAL 100 - 129 mg/dl NEAR OR ABOVE OPTIMAL 130 - 159 mg/dl BORDERLINE HIGH 160 - 189 mg/dl HIGH >190 mg/dl VERY HIGH Performed By: #### T SH, LIVER, LIPID, BMP #### [facility] [address] [place] [address] Dr. Laura Duarte Triglyceride [Mass/Vol] 59 mg/dL Normal <=150 [facility] Comment on above: Performed By: #### T SH, LIVER, LIPID, BMP #### [facility] [address] [address] [address] Laura Duarte VLDL CALC 11.8 mg/dL Normal [facility] Comment on above: Performed By: #### T SH, LIVER, LIPID, BMP #### [facility] [address] [place] [address] Dr. Laura Duarte LIVER PROFILEon 03-30-2022 Albumin [Mass/Vol] 3.6 g/dL Normal 3.4-5.0 [facility] Comment on above: Performed By: #### T SH, LIVER, LIPID, BMP #### [facility] [address] [place] [address] Dr. Laura Duarte Albumin/Globulin [Mass ratio] 1.0 {ratio} Normal [facility] Comment on above: Performed By: #### T SH, LIVER, LIPID, BMP #### [facility] [address] [place] [address] Dr. Laura Duarte ALP [Catalytic activity/Vol] 76 U/L Normal 46-116 [facility] Comment on above: Performed By: #### T SH, LIVER, LIPID, BMP #### [facility] [address] [place] [address] Dr. Laura Duarte ALT [Catalytic activity/Vol] 19 U/L Normal 14-59 [facility] Comment on above: Performed By: #### T SH, LIVER, LIPID, BMP #### [facility] [address] [place] [address] Dr. Laura Duarte AST [Catalytic activity/Vol] 11 U/L Critically low 15-37 [facility] Comment on above: Performed By: #### T SH, LIVER, LIPID, BMP #### [facility] [address] [place] [address] Dr. Laura Duarte BILI, CONJUGATED 0.1 mg/dL Normal 0.0-0.2 [facility] Comment on above: Performed By: #### T SH, LIVER, LIPID, BMP #### [facility] [address] [place] [address] Dr. Laura Duarte Bilirubin [Mass/Vol] 0.3 mg/dL Normal 0.2-1.0 [facility] Comment on above: Performed By: #### T SH, LIVER, LIPID, BMP #### [facility] [address] [address] [address] Laura Duarte Globulin (S) [Mass/Vol] 3.5 g/dL Normal [facility] Comment on above: Performed By: #### T SH, LIVER, LIPID, BMP #### [facility] [address] [address] [address] Laura Duarte Protein [Mass/Vol] 7.1 g/dL Normal 6.4-8.2 [facility] Comment on above: Performed By: #### T SH, LIVER, LIPID, BMP #### [facility] [address] [place] [address] Dr. Laura Duarte PROF CHEM 8 (BAS METB)on Anion gap [Moles/Vol] 12.4 mmol/L Normal [facility] Comment on above: Performed By: #### T SH, LIVER, LIPID, BMP #### [facility] [address] [address] [address] Laura Duarte Calcium [Mass/Vol] 9.1 mg/dL Normal 8.5-10.1 [facility] Comment on above: Performed By: #### T SH, LIVER, LIPID, BMP #### [facility] [address] [address] [address] Laura Duarte Chloride [Moles/Vol] 106 mmol/L Normal 98-107 [facility] Comment on above: Performed By: #### T SH, LIVER, LIPID, BMP #### [facility] [address] [address] [address] Laura Duarte CO2 [Moles/Vol] 24.5 mmol/L Normal 21.0-32.0 [facility] Comment on above: Performed By: #### T SH, LIVER, LIPID, BMP #### [facility] [address] [address] [address] Laura Duarte Creatinine [Mass/Vol] 0.70 mg/dL Normal 0.55-1.02 [facility] Comment on above: Performed By: #### T SH, LIVER, LIPID, BMP #### [facility] [address] [place] [address] Dr. Laura Duarte EGFR-AF CITIZ[place] >60 Normal >=60 [facility] Comment on above: Performed By: #### T SH, LIVER, LIPID, BMP #### [facility] [address] [address] [address] Laura Duarte EGFR-NON AF CITIZEN OF [place] >60 Normal >=60 [facility] Comment on above: Performed By: #### T SH, LIVER, LIPID, BMP #### [facility] [address] [place] [address] Dr. Laura Duarte Glucose [Mass/Vol] 94 mg/dL Normal 74-106 [facility] Comment on above: Performed By: #### T SH, LIVER, LIPID, BMP #### [facility] [address] [place] [address] Dr. Laura Duarte Potassium [Moles/Vol] 3.9 mmol/L Normal 3.5-5.1 [facility] Comment on above: Performed By: #### T SH, LIVER, LIPID, BMP #### [facility] [address] [place] [address] Dr. Laura Duarte Sodium [Moles/Vol] 139 mmol/L Normal 136-145 [facility] Comment on above: Performed By: #### T SH, LIVER, LIPID, BMP #### [facility] [address] [place] [address] Dr. Laura Duarte Urea nitrogen [Mass/Vol] 7.0 mg/dL Normal 7.0-18.0 [facility] Comment on above: Performed By: #### T SH, LIVER, LIPID, BMP #### [facility] [address] [place] [address] Dr. Laura Duarte Urea nitrogen/Creatinine [Mass ratio] 10.0 mg/mg Normal [facility] Comment on above: Performed By: #### T SH, LIVER, LIPID, BMP #### [facility] [address] [place] [address] Dr. Laura Duarte TSHon 03-30-2022 TSH 1.039 uIU/mL Normal 0.358-3.[address] [facility] Comment on above: Performed By: #### T SH, LIVER, LIPID, BMP #### [facility] [address] [address] [address] Laura Duarte [facility]07 SARS-CoV-2 (COVID-19) RNA MARY+probe Ql (Unsp spec) Not detected Normal NOT DETECTED [facility] Comment on above: Result Comment: When diagnostic [...] for this test is supported by the [place] of Health and Human Service's declaration that [...] Performed By: #### P TT, PT #### [facility] [address] [address] [address] Laura Duarte XR CHEST 1 Von [...] MATEUS BUTCHER Date: 2022-02-24 23:55 Normal [facility] COVID-19, RapidOrdered By: Sonu Srinivasan on 02-13-2021 SARS-CoV-2 (COVID-19) RNA MARY+probe Ql (Unsp spec) Not detected Not Detected [facility] Phone: Comment on above: Rapid NAAT: The [...] management decisions. Fact sheet for Healthcare Providers: https://www.fda.gov/media/797188/download Fact sheet for Patients: https://www.fda.gov/media/110944/download Methodology: Isothermal Nucleic Acid Amplification Specimen Description .NASOPHARYNGEAL SWAB [facility] Phone: [facility] Phone: CBC Auto DifferentialOrdered By: Avinash Kee on 10-25-2020 Absolute Eos # <0.03 [facility] Work Phone: Absolute Immature Granulocyte 0.04 [facility] Phone: Absolute Lymph # 2.18 [employer] [facility] Work Phone: Absolute Iosco # 0.75 [facility] Work Phone: Basophils (Bld) [#/Vol] 10*3/uL [employer] Phone: Basophils/100 WBC (Bld) 0 % 0 - 2 % [employer] Phone: Differential Type NOT REPORTED [employer] Phone: Eosinophils/100 WBC (Bld) 0 % Low 1 - 4 % [facility] Phone: Hematocrit (Bld) [Volume fraction] 43.1 % 36.3 - 47.1 % [employer] Phone: Hemoglobin.gastrointes tinal spec 1 Ql (Stl) 13.9 g/dL 11.9 - 15.1 g/dL [employer] Phone: Immature granulocytes/100 WBC (Bld) 1 % High 0 [employer] Phone: Interpretation and review of laboratory results Abnormal [employer] Phone: Lymphocytes/100 WBC (Bld) 29 % 24 - 43 % [employer] Phone: MCH (RBC) [Entitic mass] 27.4 pg 25.2 - 33.5 pg [employer] Phone: MCHC (RBC) [Mass/Vol] 32.3 g/dL 28.4 - 34.8 g/dL [employer] Phone: MCV (RBC) [Entitic vol] 84.8 fL 82.6 - 102.9 fL [employer] Phone: Monocytes/100 WBC (Bld) 10 % 3 - 12 % [employer] Phone: NRBC Automated 0.0 0.0 per 100 WBC [employer] Phone: Platelet distribution width (Bld) [Ratio] 13.3 % 11.8 - 14.4 % [facility] Phone: Platelet Estimate NOT REPORTED [facility] Phone: Platelet mean volume (Bld) [Entitic vol] 9.7 fL 8.1 - 13.5 fL [facility] Phone: Platelets (Bld) [#/Vol] 282 10*3/uL [employer] Phone: RBC (Bld) [#/Vol] 5.08 10*6/uL 3.95 - 5.1 1 m/uL [employer] Work Phone: RBC (Bld) [#/Vol] NOT REPORTED [facility] Phone: Segmented neutrophils/100 WBC (Bld) 60 % 36 - 65 % [employer] Phone: Segs Absolute [address] Work Phone: WBC (Bld) [#/Vol] 7.5 10*3/uL [employer] Work Phone: WBC (Bld) [#/Vol] NOT REPORTED [facility] Phone: Comprehensive Metabolic Pane l w/ Reflex to MGOrdered By: Avinash Kee on 10-25-2020 Albumin [Mass/Vol] 3.9 g/dL 3.5 - 5.2 g/dL [facility] Phone: Albumin/Globulin [Mass ratio] 1.2 {ratio} [facility] Phone: ALP (Bld) [Catalytic activity/Vol] 78 U/L 35 - 104 U/L [facility] Phone: ALT [Catalytic activity/Vol] 34 U/L High 5 - 33 U/L [employer] Phone: Anion gap [Moles/Vol] 13 mmol/L 9 - 17 mmol/L [employer] Phone: AST [Catalytic activity/Vol] 35 U/L High <32 [facility] Phone: Bilirubin [Mass/Vol] 0.23 mg/dL Low 0.3 - 1 .2 mg/dL [facility] Phone: Calcium [Mass/Vol] 9.2 mg/dL 8.6 - 10. 4 mg/dL [facility] Phone: Chloride [Moles/Vol] 99 mmol/L 98 - 10 7 mmol/L [facility] Phone: CO2 [Moles/Vol] 24 mmol/L 20 - 31 mmol/L [facility] Phone: Creatinine [Mass/Vol] 0.73 mg/dL 0.50 - 0.90 mg/dL [facility] Phone: Free PSA/Total PSA [Mass fraction] 7.1 g/dL 6.4 - 8.3 g/dL [facility] Phone: GFR >60 >60 mL/min [employer] Phone: GFR Non- >60 >60 mL/min [facility] Phone: Glucose [Mass/Vol] 119 mg/dL High 70 - 99 mg/dL [facility] Phone: Interpretation and review of laboratory results Abnormal [facility] Phone: Potassium [Moles/Vol] 3.3 mmol/L Low 3.7 - 5.3 mmol/L [facility] Phone: Sodium [Moles/Vol] 136 mmol/L 135 - 144 mmol/L [facility] Phone: Urea nitrogen (BldV) [Mass/Vol] 11 mg/dL 6 - 20 mg/dL [employer] Phone: Urea nitrogen/Creatinine (Bld) [Mass ratio] 15 [facility] Phone: Laboratory - Chemistry and C hemistry - challengeOrdered By: Avinash Kee on 10-25-2020 GFR/1.73 sq M.predicted MDRD (S/P/Bld) [Vol rate/Area] [facility] Phone: Comment on above: Average GFR for 20-2 9 years old: 116 mL/min/1.73sq m Chronic Kidney Disease: <60 mL/min/1.73sq m Kidney failure: <15 mL/min/1.73sq m eGFR calculated using average adult body mass. Additional eGFR calculator available at: http://www.[employer] Online/multiple_crcl_2012.htm Stage 1: Some kidney damage normal GFR Stage 2: Mild kidney damage GFR 60-89 Stage 3: Moderate kidney damage GFR 30-59 Stage 4: Severe kidney damage GFR 15-29 Stage 5: Severe kidney damage GFR <15 ESRD - chronic treatment by dialysis or transplant COVID-19, Rapidon 10-20-2020 Interpretation and review of laboratory results Abnormal [facility] Phone: SARS-CoV-2, Rapid DETECTED Abnormal Not Detected [facility] Phone: Comment on above: Rapid NAAT: The [...] this assay. Fact sheet for Healthcare Providers: https://www.fda.gov/media/650659/download Fact sheet for Patients: https://www.fda.gov/media/932383/download Methodology: Isothermal Nucleic Acid Amplification Results reported to the appropriate Health Department Specimen Description .NASOPHARYNGEAL SWAB [facility] Phone: XR CHEST PORTABLEon 10-20-19 21 No acute intrathoracic pathology. [facility] Phone: EXAMINATION: ONE XRAY VIEW OF THE CHEST 10/19/2020 11:23 pm COMPARISON: 06/10/2015 HISTORY: ORDERING SYSTEM PROVIDED HISTORY: shortness of breath TECHNOLOGIST PROVIDED HISTORY: shortness of breath FINDINGS: The cardiomediastinal silhouette and hilar contours are normal. The lungs are clear with no focal consolidation, pleural effusion or pneumothorax. The overlying soft tissue and osseous structures appear unremarkable. [facility] Phone: Loyd, Mhpn Incoming Radiant Results From [facility] - 10/19/2020 11:48 PM EDT EXAMINATION: ONE [...] appear unremarkable. IMPRESSION: No acute intrathoracic pathology. [facility] Phone: Vital Signs Date Time Vital Sign Value Performing Clinician Facility 10-24-2023 15:06-0400 Body height 168.28 cm [facility] 10-24-2023 15:06-0400 Body mass index (BMI) [Ratio] 50.2 kg/m2 [facility] 10-24-2023 15:06-0400 Body weight 142.2 kg [facility] 10-24-2023 15:06-0400 Diastolic blood pressure 91 mm[Hg] [facility] 10-24-2023 15:06-0400 Heart rate 94 /min [facility] 10-24-2023 15:06-0400 Respiratory rate 16 /min [facility] 10-24-2023 15:06-0400 SaO2% (BldA) [Mass fraction] 96 % [facility] 10-24-2023 15:06-0400 Systolic blood pressure 129 mm[Hg] [facility] 09-21-2023 09:42-0400 Body height 172.72 cm [facility] 09-21-2023 09:42-0400 Body mass index (BMI) [Ratio] 47.1 kg/m2 [facility] 09-21-2023 09:42-0400 Body temperature 98.7 [degF] [facility] 09-21-2023 09:42-0400 Body weight 140.61 kg [facility] 09-21-2023 09:42-0400 Heart rate 98 /min [facility] 09-21-2023 09:42-0400 Respiratory rate 18 /min [facility] 09-21-2023 09:42-0400 SaO2% (BldA) [Mass fraction] 97 % [facility] 04-21-2023 10:10-0400 Body height 171.45 cm Maribel Flanagan Other [facility] Other 04-21-2023 10:10-0400 Body mass index (BMI) [Ratio] 46.29 kg/m2 Maribel Flanagan Other [facility] Other 04-21-2023 10:10-0400 Body temperature 97.2 [degF] Maribel Flanagan Other [facility] Other 04-21-2023 10:10-0400 Body weight 136.08 kg Maribel Flanagan Other [facility] Other 04-21-2023 10:10-0400 Diastolic blood pressure 88 mm[Hg] Maribel Flanagan Other [facility] Other 04-21-2023 10:10-0400 Respiratory rate 17 /min Maribel Flanagan Other [employer] Other 04-21-2023 10:10-0400 SaO2% (BldA) [Mass fraction] 98 % Maribel Flanagan Other [facility] Other 04-21-2023 10:10-0400 Systolic blood pressure 156 mm[Hg] Maribel Masha Other [employer] Other 11-02-2021 14:15-0400 Diastolic blood pressure 96 mm[Hg] Michael Wiseman MD Work Phone: [facility] 11-02-2021 14:15-0400 Heart rate 99 /min Michael Wiseman MD Work Phone: [employer] 11-02-2021 14:15-0400 Systolic blood pressure 141 mm[Hg] Michael Wiseman MD Work Phone: [employer] 11-02-2021 14:13-0400 Respiratory rate 16 /min Michael Wiseman MD Work Phone: [employer] 02-18-2021 20:25-0400 Body temperature 97.2 [degF] Enrique Srinivasan MD Work Phone: [employer] Work Phone: 02-18-2021 20:25-0400 Diastolic blood pressure 84 mm[Hg] Enrique Srinivasan MD Work Phone: [employer] Work Phone: 02-18-2021 20:25-0400 Heart rate 102 /min Enrique Srinivasan MD Work Phone: [employer] Work Phone: 02-18-2021 20:25-0400 Respiratory rate 16 /min Enrique Srinivasan MD Work Phone: [employer] Work Phone: 02-18-2021 20:25-0400 SaO2% (BldA) [Mass fraction] 96 % Enrique Srinivasan MD Work Phone: [employer] Work Phone: 02-18-2021 20:25-0400 Systolic blood pressure 128 mm[Hg] Enrique Srinivasan MD Work Phone: [employer] Work Phone: 02-13-2021 22:45-0400 Diastolic blood pressure 87 mm[Hg] Enrique Srinivasan MD Work Phone: [employer] Work Phone: 02-13-2021 22:45-0400 Systolic blood pressure 186 mm[Hg] Enrique Srinivasan MD Work Phone: [employer] Work Phone: 02-13-2021 21:55-0400 Body height 172.7 cm Enrique Srinivasan MD Work Phone: [employer] Work Phone: 02-13-2021 21:55-0400 Body mass index (BMI) [Ratio] 45.61 kg/m2 Enrique Srinivasan MD Work Phone: [employer] Work Phone: 02-13-2021 21:55-0400 Body weight 136.08 kg Enrique Srinivasan MD Work Phone: [employer] Work Phone: 02-13-2021 21:55-0400 Heart rate 103 /min Enrique Srinivasan MD Work Phone: [employer] Work Phone: 02-13-2021 21:55-0400 Respiratory rate 18 /min Enrique Srinivasan MD Work Phone: [employer] Work Phone: 02-13-2021 21:55-0400 SaO2% (BldA) [Mass fraction] 98 % Enrique Srinivasan MD Work Phone: [employer] Work Phone: 12-16-2020 23:20-0400 Diastolic blood pressure 89 mm[Hg] Adi Andes DO Work Phone: [employer] Work Phone: 12-16-2020 23:20-0400 SaO2% (BldA) [Mass fraction] 95 % Adi Andes DO Work Phone: [employer] Work Phone: 12-16-2020 23:20-0400 Systolic blood pressure 163 mm[Hg] Adi Andes DO Work Phone: [employer] Work Phone: 12-16-2020 22:25-0400 Body mass index (BMI) [Ratio] 46.98 kg/m2 Adi Andes DO Work Phone: [employer] Work Phone: 12-16-2020 22:25-0400 Body temperature 97.3 [degF] Adi Andes DO Work Phone: [employer] Work Phone: 12-16-2020 22:25-0400 Body weight 140.16 kg Adi Andes DO Work Phone: [employer] Work Phone: 12-16-2020 22:25-0400 Heart rate 101 /min Adi Andes DO Work Phone: [employer] Work Phone: 10-26-2020 00:30-0400 SaO2% (BldA) [Mass fraction] 97 % Avinash Kee MD Work Phone: [employer] Work Phone: 10-26-2020 00:00-0400 Diastolic blood pressure 56 mm[Hg] Avinash Kee MD Work Phone: [employer] Work Phone: 10-26-2020 00:00-0400 Systolic blood pressure 145 mm[Hg] Avinash Kee MD Work Phone: [employer] Work Phone: 10-25-2020 22:11-0400 Body temperature 97.2 [degF] Avinash Kee MD Work Phone: [employer] Work Phone: 10-25-2020 22:11-0400 Heart rate 101 /min Avinash Kee MD Work Phone: [employer] Work Phone: 10-25-2020 22:11-0400 Respiratory rate 17 /min Avinash Kee MD Work Phone: [employer] Phone: 10-20-2020 00:40-0400 Body Temperature 97.5 [degF] [employer] Phone: 10-20-2020 00:40-0400 BP Diastolic 90 mm[Hg] [employer] Work Phone: 10-20-2020 00:40-0400 BP Systolic 103 mm[Hg] [employer] Work Phone: 10-20-2020 00:40-0400 Pulse (Heart Rate) 103 /min [employer] Phone: 10-20-2020 00:40-0400 Pulse Oximetry 95 % [employer] Phone: 10-20-2020 00:40-0400 Respiratory Rate 22 /min [employer] Phone: 10-19-2020 23:06-0400 BMI (Body Mass Index) 42.57 kg/m2 [employer] Phone: 10-19-2020 23:06-0400 Body weight 127.01 kg [employer] Phone: Encounters Encounter Date Encounter Type Care Provider Facility Start: 03-21-2024 End: 03-21-2024 ambulatory LYNDSAY SHAW [facility] Start: 03-21-2024 End: 03-21-2024 ambulatory LYNDSAY SHAW [facility] Start: 02-25-2024 End: 02-25-2024 Letter encounter Heather Taylor MD Work Phone: [facility] Start: 2024 End: 2024 ambulatory TEJAS JUARES [facility] Start: 2024 End: 2024 ambulatory TEJAS MARIE [facility] Start: 2024 End: 2024 ambulatory [facility] Ra[facility]l [facility] Start: 11-22-2023 End: 11-22-2023 ambulatory SHAIKH CLINT Not Available Start: 10-26-2023 End: 10-26-2023 ambulatory [facility] Work Phone: Start: 10-26-2023 End: 10-26-2023 Patient encounter procedure [facility] Work Phone: Start: 10-24-2023 End: 10-24-2023 ambulatory [facility] Work Phone: Start: 10-24-2023 End: 10-24-2023 Patient encounter procedure [facility] Work Phone: Start: 09-21-2023 End: 09-21-2023 ambulatory [facility] Work Phone: Start: 09-21-2023 End: 09-21-2023 Patient encounter procedure [facility] Work Phone: Start: 09-12-2023 End: 09-12-2023 ambulatory URSULA TEEI Facility:[facility] Start: 09-04-2023 End: 09-04-2023 ambulatory ZORAN FLORES Not Available Start: 08-24-2023 Orders Only Zoran Lewis Work Phone: [facility] Comment on above: Right kidney mass (P rimary Dx) Start: 08-22-2023 Orders Only Zoran Lewis Work Phone: [facility] Comment on above: Right kidney mass (P rimary Dx) Start: 07-27-2023 End: 07-27-2023 ambulatory ZORAN FLORES Not Available Start: 07-27-2023 Non-patient / Non-visit [facility] Work Phone: Start: 07-27-2023 Patient encounter procedure Zoran Flores MD Work Phone: [facility] Start: 07-18-2023 End: 07-18-2023 ambulatory HANY ELLISON Not Available Start: 07-11-2023 End: 07-12-2023 ambulatory MARYANA AMADOR Not Available Start: 07-04-2023 End: 07-04-2023 ambulatory Jeremiah Chen Other [facility] Other Start: 07-04-2023 Telephone encounter Jeremiah Huggins ck [facility] Start: 04-21-2023 Office outpatient ne w 10 minutes Maribel Flanagan [facility] Start: 04-21-2023 End: 04-21-2023 ambulatory MD Zoran Flores Work Phone: [place] [employer] Other Start: 04-21-2023 End: 04-21-2023 Patient encounter procedure MD Zoran Flores Work Phone: [facility] Work Phone: Start: 04-18-2023 Refill Michael dominguez MD Work Phone: [facility] ([facility]) Comment on above: Refill Start: 04-04-2023 Emergency department patient visit ZORAN FLORES [facility] Start: 11-28-[address] DOCTOR OLIVIA Facility :[facility] Start: 11-18-2022 End: 11-19-[address] ZORAN FLORES Facility:[facility] Start: 10-14-2022 Orders Only Michael dominguez MD Work Phone: [facility] (ENT) Comment on above: Referral to [facility] Start: 08-07-2022 Refill Michael dominguez MD Work Phone: [facility] ([facility]) Comment on above: Refill Start: 05-17-2022 Refill Michael dominguez MD Work Phone: [facility] ([facility]) Comment on above: Refill Start: 04-01-2022 Encounter for genera l adult medical examination without abnormal findings DR ZORAN FOLRES [facility] Start: 03-30-2022 End: 03-31-[address] ZORAN FLORES Facility:[facility] Start: 03-30-2022 End: 03-31-2022 Encounter for general adult medical examination without abnormal findings DR ZORAN FLORES Facility:[facility] Start: 02-25-2022 End: 02-25-[address] ZORAN FLORES Facility:[facility] Start: 11-02-2021 End: 11-02-2021 Office outpatient visit 25 minutes Michael Wiseman MD Work Phone: [facility] (ENT) Comment on above: Chronic pansinusitis (Primary Dx); Anosmia; Multiple nasal polyps Start: 02-18-2021 End: 02-18-2021 Emergency department patient visit Enrique Srinivasan MD Work Phone: [facility] ED Comment on above: Chronic sinusitis, u nspecified location (Primary Dx); Post-op pain Start: 02-13-2021 End: 02-13-2021 Emergency department patient visit Enrique Srinivasan MD Work Phone: [facility] ED Comment on above: Close exposure to [place] VID-19 virus (Primary Dx) Start: 12-16-2020 End: 12-16-2020 Emergency department patient visit Adi Otis SAMUEL Work Phone: [facility] ED Comment on above: Mild intermittent as thma with exacerbation (Primary Dx) Start: 10-25-2020 End: 10-26-2020 Emergency department patient visit Avinash Kee MD Work Phone: [facility] ED Comment on above: Nausea vomiting and diarrhea (Primary Dx); COVID-19 virus infection Start: 10-19-2020 End: 10-20-2020 Emergency department patient visit Enrique Srinivasan Work Phone: [facility] ED Comment on above: COVID-19 (Primary [...] 2) Shingles (RZV) Vaccine (1 of 2) [facility] Start: 10-16-2031 Tetanus vaccination [facility] Start: 04-09-2024 Influenza vaccination Influenza Vacc ine (#1) [facility] Start: 10-17-2023 End: 10-17-2023 Patient encounter procedure 10/17/2023 1:15 PM EDT Office Visit [facility] [address] [place] [id number] Zoran Flores MD [address] [place] [id number] MILENA RUEDA Start: 09-04-2023 End: 09-04-2023 Patient encounter procedure 09/04/2023 10:45 AM EST Office Visit [facility] [address] [place] [address] Zoran Flores MD [address] [place] [address] MILENA PEDROZA Start: 04-25-2023 End: 04-25-2023 Patient encounter procedure 04/25/2023 3:00 PM EDT Office Visit [facility]) [address] [place] [address] [address] [id number] Michael Wiseman MD [address] [place] [address] [facility]) Start: 03-10-2023 COVID-19 Vaccine ( season) COVID-19 Vaccine ( season) [facility] Start: 03-10-2023 Influenza vaccination Influenza Vacc ine (#1) [facility] Start: 04-09-2022 Influenza vaccination Influenza Vacc ine (#1) [facility] Start: 12-07-2021 End: 12-07-2021 Patient encounter procedure 12/07/2021 Office Visit [facility]Otolaryngology Michael Wiseman MD [address] [place], [place] [id number] [facility] ([facility]) Start: 03-10-2021 Influenza vaccination [facility] [employer] Phone: Start: 02-25-2020 DTaP/Tdap/Td vaccine (3 - Td or Tdap) DTaP/Tdap/Td vaccine (3 - Td or Tdap) [employer] Phone: Start: 02-25-2020 DTaP/Tdap/Td vaccine (3 - Td) DTaP/Tdap/Td vaccine (3 - Td) [employer] Phone: Start: 2018 Screening for malignant neoplasm of cervix [facility] Start: 02-23-2016 Hepatitis A (HAV) Vaccine (optional start 19+ years) Hepatitis A (HAV) Vaccine (optional start 19+ years) [facility] Start: 02-23-2016 Hepatitis B vaccination Hepatitis B (HBV) Vaccine (1 of 3 - 19+ 3-dose series) [facility] Start: 2015 Hepatitis C screening Hepatitis C An [facility] Start: 2015 Screening for Chlamydia trachomatis STI Screening (Age 18-24) [facility] Start: 2013 COVID-19 Vaccine (1) COVID-19 Vaccin e (1) [facility] [employer] Work Phone: Start: 2013 Screening for Chlamydia trachomatis Chlamydia screen [facility] Phone: Start: 02-23-2012 HIV screening HIV screen [facility] Work Phone: Start: 2009 COVID-19 Vaccine (1) COVID-19 Vaccin e (1) [employer] Work Phone: Start: 2002 COVID-19 Vaccine (1) COVID-19 Vaccin e (1) [facility] Start: 1998 Varicella vaccine (1 of 2 - 2-dose childhood series) Varicella vaccine (1 of 2 - 2-dose childhood series) [employer] Phone: Start: 1997 COVID-19 Vaccine (#1) COVID-19 Vacci ne (#1) [facility] Start: 1997 Hepatitis C screening Hepatitis C sc reen [facility] [employer] Phone: End: 10-25-2020 Magnesium [Mass/volume] in Serum or Plasma Magnesium Lab Routine Once for 1 Occurrences starting 10/25/2020 until 10/25/2020 [employer] Phone: Comment on above: Once for 1 Occurrenc es starting 10/25/2020 until 10/25/2020 Magnesium [Mass/volume] in Serum or Plasma Magnesium Lab Routine 10/25/2020 11:08 PM EDT [facility]: [facility] Immunizations Immunization Date Immunization Notes Care Provider Fa sameer 05-04-2023 Influenza, injectabl e, Madin Adrianna Canine Kidney, preservative free, quadrivalent Heather Taylor MD Work Phone: [facility] 05-04-2023 influenza virus vacc ine, unspecified formulation Heather Taylor MD Work Phone: [facility] 10-15-2021 tetanus toxoid, redu anastacio diphtheria toxoid, and acellular pertussis vaccine, adsorbed Michael Wiseman MD Work Phone: [facility] 07-19-2018 Human Papillomavirus 9-valent vaccine Michael Wiseman MD Work Phone: [facility] 03-23-2018 Human Papillomavirus 9-valent vaccine Michael Wiseman MD Work Phone: [facility] 01-16-2018 Human Papillomavirus 9-valent vaccine Michael Wiseman MD Work Phone: [facility] 02-24-2010 tetanus toxoid, redu anastacio diphtheria toxoid, and acellular pertussis vaccine, adsorbed Michael Wiseman MD Work Phone: [facility] 05-31-2005 influenza, seasonal, injectable Michael Wiseman MD Work Phone: [facility] 05-31-2005 influenza virus vacc ine, unspecified formulation Michael Wiseman MD Work Phone: [facility] 04-30-2003 influenza, seasonal, injectable Michael Wiseman MD Work Phone: [facility] 05-07-2002 influenza, seasonal, injectable Michael Wiseman MD Work Phone: [facility] 06-08-2001 diphtheria, tetanus toxoids and acellular pertussis vaccine, unspecified formulation Michael Wiseman MD Work Phone: [facility] 06-08-2001 measles, mumps and r ubella virus vaccine Michael Wiseman MD Work Phone: [facility] 06-08-2001 poliovirus vaccine, inactivated Michael Wiseman MD Work Phone: [facility] Payers Date Payer Category Payer Self-pay [id number] 2022 Medicaid [id number] 2018 Medicaid [id number] 2016 Unknown [id number] 2013 Unknown ANTHEM - BLUE CR OSS BLUE CROSS/HMO,PPO,POS [id number] 2013-Present [address] [place] [address] PPO [id number] 1997 Unknown [id number] [id number]3 1997 Unknown [id number] 2.16.840.1.231773.3.579.2.593 1997 Unknown [id number] 2.16.840.1.774849.3.579.2.593 1997 Unknown [id number] 2.16.840.1.878590.3.579.2.593 1997 Unknown [id number] 2.16.840.1.018794.3.579.2.173 1997 Unknown [id number] 2.16.840.1.365898.3.579.2.1259 1997 Unknown [id number] 2.16.840.1.623254.3.579.2.1259 1997 Unknown [id number] 2.16.840.1.141285.3.579.2.1259 1997 Unknown [id number] 2.16.840.1.856230.3.579.2.1259 1997 Unknown [id number] 2.16.840.1.662401.3.579.2.1259 1997 Unknown [id number] 2.16.840.1.572986.3.579.2.1259 1997 Unknown [id number] 2.16.840.1.946040.3.579.2.1259 1997 Unknown [id number] 2.16.840.1.948180.3.579.2.9 1997 Unknown [id number] 2.16.840.1.038272.3.579.2.1286 1997 Unknown [id number] 2.16.840.1.809566.3.579.2.1285 1997 Unknown [id number] 2.16.840.1.252346.3.579.2.1285 1997 Unknown [id number] 2.16.840.1.443784.3.579.2.1285 1997 Unknown [id number] 2.16.840.1.514695.3.579.2.1286 1959 Unknown [id number] 1.2.840.262439.1.13.239.2.7.3.67 [id number] 1959 Unknown [id number] 1.2.840.809121.1.13.239.2.7.3.67 [id number] Unknown [id number] 2.16.840.1.369038.3.579.2.531 Unknown [id number] 2.16.840.1.564076.19 Social History Date Type Detail Facility Start: 10-23-2018 End: 10-19-2020 Tobacco smoking status [facility] Never smoker [employer] Phone: Start: 10-23-2018 End: 10-19-2020 Tobacco use and exposure Never used [employer] Phone: Start: 10-19-2020 End: 02-13-2021 Alcohol intake Current non-drinker of alcohol (finding) [employer] Phone: Start: 1997 Sex Assigned At Not on file [facility] [employer] Phone: Exposure to SARS-CoV -2 (event) Yes [employer] Phone: Exposure to SARS-CoV -2 (event) Not sure [employer] Start: 11-02-2021 End: 07-27-2023 Alcohol intake Current drinker of alcohol (finding) [facility] Start: 11-23-2018 History SDOH Alcohol Comment OCC [facility] Start: 1997 [facility]igned [facility] Start: 09-13-2021 Gender identity Identifies as female gender (finding) [facility] Start: 09-13-2021 Sexual orientation Female homo sexual (finding) [facility] Start: 02-23-2021 End: 05-03-2023 Sex Assigned At [facility] Start: 02-23-2021 End: 07-27-2023 Alcohol intake [facility] How often to you hav e a drink containing alcohol? Monthly or less [facility] Average Number of Drinks Not on file [facility] Start: 05-03-2023 Alcohol Comment caffeine intak e: 1-2 cups per day [facility] Clinical Notes 02-13-2021 to 09-12-2023 Note Date & Type Note Facility 09-12-2023 Note HNO ID: [id number] Author: URSULA MCGINNIS MD Service: ? Author Type: Physician Type: Progress Notes Filed: 09/12/2023 20:11 Note Text: [facility] NEW PATIENT HISTORY AND PHYSICAL EXAM PATIENT INFO: Melanie Ennis 28 year old REFERRING M.D.: Self PCP: Deion Grant III, MD, MD Consultation requested by self for an opinion regarding renal mass and my final recommendations will be communicated back to the requesting physician by way of shared medical record or letter via US mail. HPI 28 year old female w/h/o AERD, prediabetes, fatty liver, obesity, possible KIERAN referred for evaluation of small renal mass. Reports she was having symptoms concerning for diverticulitis which prompted imaging. CT Abdomen wo/w IV contrast (OSH) - enhancing nodule along the posterior cortex of the right kidney measuring 1.4 x 1.3 cm. Reports that she has been working on weight management recently and has lost 8 pounds in the last week. No known family history of RCC. Grandfather with hx of prostate cancer. Notes she urinates about 15-20 times per day and feels she constantly has a UTI. Was given Cipro for symptoms and this did not help. Also notes she no longer has the urge to void. Drinks lots of water daily. Wakes up frequently for urination--about 4 times per night. Occasionally has enuresis. Getting worked up for KIERAN. PATHOLOGY: None LAB: No results found for: CREAT No results found for: PSA No results found for: COLOR , CLARITY , UGLUC , UBILI , UKET , SPGR , UHB , UPH , UPROT , UROBILINOGEN , NITRITES , LEUKEST IMAGING: CT Abdomen wo/w IV contrast (OSH): Kidneys: There is an enhancing nodule along the posterior cortex of the right kidney measuring 1.4 x 1.3 cm. ALLERGIES: ALLERGIES Allergen Reactions Eggs [Egg] Unknown Lactose Other: See Comments Mushroom Anaphylaxis Sulfa (Sulfonamide * Hives, Vomiting MEDICATIONS: aspirin 325 mg tablet Take 325 mg by mouth once daily. Cetirizine (ZYRTEC) 10 mg cap Take by mouth. montelukast (SINGULAIR) 10 mg tablet Take 10 mg by mouth daily at bedtime. cholecalciferol (VITAMIN D-3) 50 mcg (2,000 unit) tablet Take 2,000 Units by mouth once daily. budesonide-formoterol (SYMBICORT) 160-4.5 mcg/actuation inhaler Inhale 2 Puffs as instructed two times a day. ALBUTEROL INHALATION Inhale as instructed. epinephrine (EPIPEN INJECTION) Inject intramuscularly. HISTORIES No past medical history on file. No family history on file. No past surgical history on file. SOCIAL HISTORY Social History Tobacco Use Smoking status: Never REVIEW OF SYSTEMS General: No weight loss, malaise or fevers., SEE HPI Gastrointestinal: See HPI Genitourinary: See HPI The remainder of the ROS was reviewed and was negative. PHYSICAL EXAMINATION BP 158/86 Pulse 100 Temp 36.9 ?C (98.5 ?F) SpO2 97% Constitutional: Well appearing, alert, in no acute distress, and well-hydrated, well nourished Gastrointestinal: non-distended Genitourinary: FEMALE EXAM: Exam NOT Indicated ASSESSMENT AND PLAN: Small renal mass I reviewed the results of the patient's imaging studies, demonstrating the images to the patient during today's visit. 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 I discussed the etiology and natural history of renal neoplasms and reviewed likelihood of malignant pathology based on size criteria using data from large surgical series. I explained the role of staging scans to evaluate for metastatic disease. I described the selected role of percutaneous renal mass biopsy, which is reserved for instances in which biopsy results will talent management specialist, while explaining the risks and limitations of renal mass biopsy. We discussed management options for clinically-localized renal neoplasms including partial or radical nephrectomy, active surveillance, or percutaneous ablation. I discussed the risks and benefits of each approach. I discussed the risks and benefits of partial nephrectomy, specifically discussing risks of hemorrhage and urine leak with partial nephrectomy, risk of conversion to radical nephrectomy, risk of infection, injury to adjacent organ, risk of VTE, and risk of cardiopulmonary complication including UT, CVA, or respiratory failure. I reviewed the risks of CKD after surgery and explained the benefit of nephron-sparing surgery when feasible in renal functional preservation. With respect to active surveillance, I reviewed the risks and benefits of this approach. I reviewed the likelihood of interval growth on surveillance and the low but non-zero risk of disease progression based on data from large surveillance series. I reviewed the need for serial imaging and common triggers for progression to treatment, namely interval growth. I reviewed the likelihood of ultimately progressing to treatment based on data from large surveillance series. With repsect to pe (more content not included)... [facility] 04-21-2023 Evaluation note Encounter Date Diagnosis Assessment [...] no improvement in 5 to 7 days [employer] Other 04-07-2023 NoteLaKeya is asking if an outside referral can be sent to dr. Shankar in [place]. He specializes in Samter's triad but requires a referral. The fax number is [phone] and demographics will need to be sent as well. I would be happy to send the referral once it is available. Thank you, Callum [facility]04-07-2023 Telephone encounter Note* Telephone Encounter - Hansa Quiroga - 10/14/2022 3:08 PM EDT Melanie is asking if an outside referral can be sent to dr. Shankar in [place]. He specializes in Samter s triad but requires a referral. The fax number is [phone] and demographics will need to be sent as well. I would be happy to send the referral once it is available. Thank you, Zoie [id number] Miscellaneous Notes* Telephone Encounter - Hansa Quiroga - 10/14/2022 3:08 PM EDT Melanie is asking if an outside referral can be sent to dr. Shankar in [place]. He specializes in Samter s triad but requires a referral. The fax number is [phone] and demographics will need to be sent as well. I would be happy to send the referral once it is available. Thank you, Zoie documented in this [id number] Telephone encounter Note* Telephone Encounter - Becky Hernandez [facility] - 05/17/2022 2:31 PM EST Last visit with [facility] (Michael Wiseman) was 11/02/2021. No future visit scheduled. Requested Prescriptions Pending Prescriptions Disp Refills montelukast (SINGULAIR) 10 MG tablet [Pharmacy Med Name: MONTELUKAST SOD 10 MG TABLET] 90 Tablet 3 Sig: TAKE 1 TABLET BY MOUTH EVERY DAY No PCP on file No PCP on file [id number] Miscellaneous Notes* Telephone Encounter - Becky Hernandez [...] No PCP on file documented in this [id number] History of Present illness Narrative* Michael Wiseman MD - 11/02/2021 2:42 PM EDT Images from the original note were not included. CC: Nasal obstruction HPI: Melanie Ennis is a 26 year old female [...] PER LOCALIZATION; Surgeon: Michael Wiseman MD; Location: [facility]; Service: Otolaryngology MYRINGOTOMY WITH PRESSURE [...] Nausea Pollen Extract Itching Wheat Bran diarrhea [place] Oil Other reaction(s): Nausea And Vomiting [place]-Related Products Nausea Other (Review Comments!) Itching and [...] appropriate exam) Counseling/educating : patient Charting in [facility] of which 20 minutes was spent [id number] with the patient documented in this [id number] Hospital Discharge instructions* Instructions* Enrique Srinivasan MD [...] or ANY other concerns. documented in this encounterTurnStar Phone: 1(771) 759-400808-07-2021 Hospital Discharge instructions* Instructions* Enrique Srinivasan MD [...] Everywhere. * Coronavirus Disease (COVID-19): General Info (Ethiopian) documented in this encounterTurnStar Phone: [email or web address] note* Diagnosis Nausea vomiting and diarrhea- Primary Nausea with vomiting COVID-19 virus infection documented in this encounter [employer] Phone: evalytajzk note* Diagnosis Mild intermittent asthma with exacerbation- Primary Unspecified asthma, with exacerbation documented in this encounter [employer] Phone: evalvgyfog note* Diagnosis Close exposure to COVID-19 virus- Primary documented in this encounter [employer] Phone: evalqbzcln note* Diagnosis Chronic sinusitis, unspecified location- Primary Post-op pain Other acute postoperative pain documented in this encounter [employer] Phone: evalkmsulp note* Diagnosis Chronic pansinusitis- Primary Other chronic sinusitis Anosmia Disturbances of sensation of smell and taste Multiple nasal polyps Unspecified nasal polyp [facility] Diagnosis Chronic pansinusitis- Primary Other chronic sinusitis Multiple nasal polyps Unspecified nasal polyp [facility] Work Phone: Evaluation noteNo InformationNortGeising[facility] [employer] Other Evaluation note* Diagnosis Right kidney mass- Primary Unspecified disorder of kidney and ureter documented in this encounter [facility]* Diagnosis Onset Date Resolution Status Contact with or exposure to viral disease noneactive [facility] Work Phone: Evaluation note* Diagnosis Onset Date Resolution Status Acute viral sinusitis noneac tive Contact with or exposure to viral disease noneactive Asthma acute BMI 50.0-59.9, adult acute IBS (irritable bowel syndrome) acute Obesity acute Prediabetes acute Vitamin D deficiency, unspecified acute [facility] Work Phone: History general Narrative - Reported* Type Description [...] polypectomy Hospitalization History See past surgical hx [facility] [employer] Other Hospital Discharge instructions* Attachments The following attachments cannot be sent through Care Everywhere. * Coronavirus Disease (COVID-19): General Info (Ethiopian) * COVID-19: Taking Care of Yourself If You Have It: Video (Ethiopian) * Nausea and Vomiting (Ethiopian) * Diarrhea (Ethiopian) documented in this encounterTurnStar Phone: Hospital Discharge instructions* Attachments The following attachments cannot be sent through Care Everywhere. * Asthma: General Info (Ethiopian) documented in this encounterTurnStar Phone: reason for referral (narrative)* Consultation (Routine) - Pending Review Specialty Diagnoses / Procedures Referred By Contac t Referred To Contact Urology Diagnoses Right kidney mass Procedures IN OFFICE/OUTPATIENT NEW HIGH MDM 60 MINUTES Zoran Flores MD [address] [place] [address] Referral ID Status Reason Start Date Expiration Date Visits Requested Visits Authorized [id number] Pending Review Specialty Services Required 08/22/2023 02/18/2024 1 1 [facility] Consultation (Routine) - Pending Review Specialty Diagnoses / Procedures Referred By Contac t Referred To Contact Urology Diagnoses Right kidney mass Procedures IN OFFICE/OUTPATIENT NEW HIGH MDM 60 MINUTES Zoran Flores MD [address] [place] [address] Referral ID Status Reason Start Date Expiration Date Visits Requested Visits Authorized [id number] Pending Review Specialty Services Required 08/24/2023 02/20/2024 1 1 [facility] Discharge Instructions * Instructions* Enrique Srinivasan MD [...] Everywhere. * Coronavirus Disease (COVID-19): General Info ([place]ian) * Coronavirus Disease (COVID-19): Isolation ([place]ian) documented in this encounter Assessments Diagnosis COVID-19- Primary Advance Directives No Advanced Directives Records FoundDocuments on File Type Date Recorded Patient Manager Study Expl anation ACP-Advance Directive ACP-Power of Social Media Marketer Advance Directive Response Recorded Date/ Time Advance Directives No March 6:28pm Reason for Referral Specialty Diagnoses / Procedures Referred By Contac t Referred To Contact Diagnoses Chronic pansinusitis Multiple nasal polyps Michael Wiseman MD [address] [place] [address] Referral ID Status Reason Start Date Expiration Date Visits Requested Visits Authorized [id number] Authorized Patient Preference 10/14/2022 10/15/2023 3 3 Comments Chuy Shankar MD Summary Purpose Family History No Family History Records Found Relationship Condition Age at Onset Recorded Date/T palmer Not Specified Hepatitis Unknown Chief Complaint and Reason for Visit Chief Complaint right knee pain Chief Complaint congestion, headache Reason for Visit Contact with or expo sure to viral disease Chief Complaint congestion, headache [place] Reason for Visit Acute viral sinusiti s Contact with or exposure to viral disease Asthma BMI 50.0-59.9, adult IBS (irritable bowel syndrome) Obesity Prediabetes Vitamin D deficiency, unspecified Chief Complaint congestion, headache [place] [facility] Initial RD Reason for Visit Acute viral sinusiti s Contact with or exposure to viral disease Asthma BMI 50.0-59.9, adult IBS (irritable bowel syndrome) Obesity Prediabetes Vitamin D deficiency, unspecified Additional Source Comments Reason for Visit (unrecogniz [...] (COMPLETED) 1 tablet, Oral, ONCE, On Marti 8/12/21 at 2130, For 1 dose 2129 (Given [...] Care Teams (unrecognized sec tion and content) Team Status: Active Member Role Status Dates Zoran Flores MD Primary Care Provider Active Team Status: Inactive Member Role Status Dates Zoran Flores MD Primary Care Provider Active S tart: September 21, 2023 End: September 21, 2023 Emiliana Payan APRN Attending Provider Active Start: September 21, 2023 End: September 21, 2023 Team Status: Inactive Member Role Status Dates Zoran Flores MD Primary Care Provider Active S tart: October 24, 2023 End: October 24, 2023 Palmira Fox APRN Attending Provider Active Start: October 24, 2023 End: October 24, 2023 Team Status: Inactive Member Role Status Dates Zoran Flores MD Primary Care Provider Active S tart: October 26, 2023 End: October 26, 2023 LAWANDA Mejia Attending Provider Active Start: October 26, 2023 End: October 26, 2023 Team Status: Active Member Role Status Dates Zoran Flores MD Primary Care Provide r, Attending Provider Active Start: July 27, 2023 Flow Coordinator Relationship Specialty Start Date End Date Heather Taylor MD [address] [place] [address] Physician Allergy Medicine 04/14/20 Michael Wiseman MD [address] [place], [place] [id number] Physician Otolaryngology 04/14/20 Flow Coordinator Relationship Specialty Start Date End Date Heather Taylor MD [address] [place], [place] [id number] Physician Allergy Medicine 04/14/20 Michael Wiseman MD [address] [place] [address] Physician Otolaryngology 04/14/20 Flow Coordinator Relationship Specialty Start Date End Date Heather Taylor MD [address] [place] [address] Physician Allergy Medicine 04/14/20 Michael Wiseman MD [address] [place] [address] Physician Otolaryngology 04/14/20 Flow Coordinator Relationship Specialty Start Date End Date Heather Taylor MD [address] [place] [address] Physician Allergy Medicine 04/14/20 Michael Wiseman MD [address] [place] [address] Physician Otolaryngology 04/14/20 Flow Coordinator Relationship Specialty Start Date End Date Heather Taylor MD [address] [place] [address] Physician Allergy Medicine 04/14/20 Michael Wiseman MD [address] [place] [address] Physician Otolaryngology 04/14/20 Flow Coordinator Relationship Specialty Start Date End Date Heather Taylor MD [address] [place] [address] Physician Allergy Medicine 04/14/20 Michael Wiseman MD [address] [place] [address] Physician Otolaryngology 04/14/20 Team Status: Inactive Member Role Status Dates Zoran Flores MD Primary Care Provider Active Maribel Flanagan NP-C Attending Provider Active Flow Coordinator Relationship Specialty Start Date End Date Zoran Flores MD [address] [place] [address] PCP - General Family Medicine 07/27/23 Flow Coordinator Relationship Specialty Start Date End Date Heather Taylor MD [address] [place] [address] Physician Allergy Medicine 04/14/20 Michael Wiseman MD [address] [place] [address] Physician Otolaryngology 04/14/20 INFORMATION SOURCE (unrecogn ized section and content) DATE CREATED AUTHOR 12/16/2022 [facility] DATE CREATED AUTHOR AUTHOR'S ORGANIZ ATION 04/24/2023 [facility] DATE CREATED AUTHOR AUTHOR'S ORGANIZ ATION 04/29/2023 [facility] DATE CREATED AUTHOR AUTHOR'S ORGANIZ ATION 08/10/2023 [facility] DATE CREATED AUTHOR AUTHOR'S ORGANIZ ATION 09/12/2023 [facility] DATE CREATED AUTHOR AUTHOR'S ORGANIZ ATION 11/24/2023 [facility] DATE CREATED AUTHOR AUTHOR'S ORGANIZ ATION 02/24/2024 [facility] DATE CREATED AUTHOR AUTHOR'S ORGANIZ ATION 03/23/2024 [facility] DATE CREATED AUTHOR AUTHOR'S ORGANIZ ATION 03/24/2024 [facility] Goals (unrecognized section and content) Goals may [...] BE BASED ON THE PRIMARY CLINICAL RECORDS. [employer] [facility]. provides no warranty or guarantee of the accuracy or completeness of information in this document.
[2024-03-27 11:53] LABS: Bilirubin Urine NEGATIVE (NEGATIVE); Blood Urine NEGATIVE (NEGATIVE); Clarity Urine CLEAR (CLEAR); Color Urine LT. YELLOW (YELLOW); Glucose Urine UA NEGATIVE (NEGATIVE); Ketones Urine NEGATIVE (NEGATIVE); Leukocyte Esterase Urine NEGATIVE (NEGATIVE); Nitrite Urine NEGATIVE (NEGATIVE); Protein Urine NEGATIVE (NEG/TRACE); Urobilinogen Urine 0.2 EU/dL (0.2-1.0); pH Urine 6.5 (5.0-9.0)
[2024-03-27] MEDS: 0.9 % SODIUM CHLORIDE 1,000 ML 999 ML IV (11:53)
[2024-03-27 11:56] LABS: Urine Microscopic Indicated NO
[2024-03-27 11:56] LABS: Basophils Absolute Auto 0.1 10^3/uL (0.0-0.1); Basophils Percent Auto 0.6 % (0.2-2.0); Eosinophils Absolute Auto 1.5 10^3/uL (0.0-0.7); Eosinophils Percent Auto 12.1 % (0.9-7.0); Hemoglobin 11.9 g/dL (12.0-16.0); Immature Granulocytes Abs Auto 0.04 10^3/uL (0.00-0.03); Immature Granulocytes Pct Auto 0.3 % (0.0-0.5); Lymphocytes Absolute Auto 2.1 10^3/uL (1.2-3.8); Lymphocytes Percent Auto 16.8 % (20.5-60.0); Mean Corpuscular HGB Conc 32.2 g/dL (29.9-35.2); Mean Corpuscular Hemoglobin 26.1 pg (26.7-34.0); Mean Corpuscular Volume 81.1 fL (81.0-99.0); Mean Platelet Volume 10.2 fL (9.5-13.5); Monocytes Absolute Auto 0.9 10^3/uL (0.3-0.8); Monocytes Percent Auto 7.1 % (1.7-12.0); Neutrophils Percent Auto 63.1 % (43.0-75.0); Platelet Count 350 10^3/uL (150-450); Red Blood Count 4.56 10^6/uL (4.20-5.40); Red Cell Distribution Width 14.7 % (11.0-15.0); White Blood Count 12.7 10^3/uL (4.0-11.0)
[2024-03-27] MEDS: DICYCLOMINE HCL 10 MG CAPSULE 20 MG PO (11:59)
[2024-03-27 12:05] LABS: Internal Control Within Normal Limits; SARS-CoV-2 Ag NEGATIVE (NEGATIVE); Strep A Antigen Screen Negative
[2024-03-27 12:15] LABS: Alanine Aminotransferase 20 U/L (14-59); Albumin Globulin Ratio 0.9; Albumin Level 3.4 g/dL (3.4-5.0); Alkaline Phosphatase 86 U/L (46-116); Anion Gap 11.9; Aspartate Amino Transferase 13 U/L (15-37); BUN Creatinine Ratio 4.3; Bilirubin Total 0.3 mg/dL (0.2-1.0); Calcium 8.9 mg/dL (8.5-10.1); Carbon Dioxide 26.5 mmol/L (21.0-32.0); Chloride 105 mmol/L (98-107); Estimated GFR (African America >60 (>=60); Estimated GFR (Non-African Ame >60 (>=60); Globulin 3.7 g/dL; Glucose 96 mg/dL (74-106); Potassium 3.4 mmol/L (3.5-5.1); Sodium 140 mmol/L (136-145); Total Protein 7.1 g/dL (6.4-8.2)
--- NOTE | 2024-03-27 12:18 | ED.GENADUL1 ---
HPI HPI - General Adult General Chief complaint: Abdominal Pain Stated complaint: SORE THROAT/FEVER Time Seen by Provider: 03/27/24 11:19 Source: patient Mode of arrival: walk-in Limitations: no limitations History of Present Illness HPI narrative: Presents to ED complaining of cramping bloating and diarrhea. Patient has a history of IBS but states this is very different. About a month ago she started having some severe diarrhea and it really has not stopped and it has been continuing to worsen. She says she goes multiple times a day anytime she eats or drinks anything it just kind of goes right through her. She denies any recent antibiotic use she denies any sick contacts or travel, denies any camping or drinking out of contaminated water sources that she is aware of. Patient states there is no blood in the stool but her stool color and consistency seems different. She still has her gallbladder and appendix. She is scheduled with a GI doctor but they cannot see her until June. She updated them on what was going on and they suggested emergency room visit for further evaluation. No family history of ulcerative colitis or Crohn's disease to her knowledge. No fevers, she said the most it has been up to was 99. Denies . She said her throat did start to hurt today. She said when she has to have a bowel movement that is when her pain occurs and she gets sweaty, is in severe pain and has been having weakness in her legs. Related Data Home Medications ?Medication ?Instructions ?Recorded ?Confirmed aspirin 325 mg capsule 325 mg PO DAILY 06/30/23 06/30/23 Previous Rx's ?Medication ?Instructions ?Recorded hyoscyamine sulfate 0.125 mg 0.125 mg PO Q6H PRN abdominal pain 06/30/23 sublingual tablet (Levsin/SL) #20 tabs ondansetron 4 mg disintegrating 4 mg PO Q6H PRN nausea and 06/30/23 tablet vomiting #20 tabs cephalexin 500 mg capsule 500 mg PO Q8H 10 days #5 caps 02/29/24 ondansetron 4 mg disintegrating 4 mg PO Q6H PRN nausea and 02/29/24 tablet vomiting #12 tabs ciprofloxacin HCl 500 mg tablet 500 mg PO BID 7 days #14 tabs 03/27/24 (Cipro) Allergies Allergy/AdvReac Type Severity Reaction Status Date / Time azithromycin Allergy Severe Unknown Verified 03/27/24 11:07 [From Zithromax Z-Mayank] Sulfa (Sulfonamide Allergy Severe Unknown Verified 03/27/24 11:07 Antibiotics) egg Allergy Unknown Unknown Verified 03/27/24 11:43 ketorolac [From Toradol] Allergy Unknown Unknown Verified 03/27/24 11:43 Opioid HPI Opioid Management Most Recent Opioid Data: No Data to Display Review of Systems ROS Status of ROS 10 or more systems reviewed and unremarkable except as noted in history and below PFSH PFSH Social History Little interest or pleasure in doing things: not at all Feeling down, depressed, or hopeless: not at all Exam Narrative Exam Narrative: Time Seen: [] Vital Signs: [Per nurse's notes.] General: [Alert] Skin: [Warm, dry, no rash.] Head: [Normocephalic, atraumatic.] Neck: [Supple, trachea midline.] Eye: [Pupils are equal, round and reactive to light, extraocular movements are intact, normal conjunctiva.] Ears, nose, mouth and throat: oral mucosa moist. Mild erythema posterior pharynx Cardiovascular: [Regular rate and rhythm, no murmur.] Respiratory: [Lungs are clear to auscultation, respirations are non-labored, breath sounds are equal.] Chest wall: [No tenderness, no deformity.] Gastrointestinal: [Soft, nontender, non distended, normal bowel sounds.] MSK: 5 out of 5 muscle strength x 4 extremities no calf pain or edema Lymphatics: [No lymphadenopathy.] Psychiatric: [Cooperative, appropriate mood & affect.] Neurological: [Alert and oriented to person, place, time, and situation, no focal neurological deficit observed.] Constitutional Vital Signs, click to edit/add: Last Vital Signs Temp 98.1 F 03/27/24 14:01 Pulse 71 03/27/24 14:01 Resp 14 03/27/24 14:01 BP 156/100 H 03/27/24 14:01 Pulse Ox 98 03/27/24 14:01 O2 Del Method Room Air 03/27/24 14:01 Course Vital Signs Vital signs: Vital Signs Temperature 99.0 F 03/27/24 11:07 Pulse Rate 90 03/27/24 11:07 Respiratory Rate 18 03/27/24 11:07 Blood Pressure 160/113 H 03/27/24 11:07 Pulse Oximetry 96 03/27/24 11:07 Oxygen Delivery Method Room Air 03/27/24 11:07 Temperature 98.1 F 03/27/24 14:01 Pulse Rate 71 03/27/24 14:01 Respiratory Rate 14 03/27/24 14:01 Blood Pressure 156/100 H 03/27/24 14:01 Pulse Oximetry 98 03/27/24 14:01 Oxygen Delivery Method Room Air 03/27/24 14:01 Medical Decision Making MDM Narrative Medical decision making narrative: Patient's labs are negative for acute. Stool sample was sent down for culture. CT scan shows a cyst on the liver And patient already has outpatient follow-up for this. She is already aware of this issue. Unclear what is causing so much diarrhea for her, I will send her home on Cipro in case it is infectious in nature. Await stool cultures, Follow-up with GI and primary doctor. Return to ED if worsening symptoms. Patient is comfortable care plan for home Differential Diagnosis Differential Diagnosis: Infectious diarrhea, colitis, bowel obstruction, acute cholecystitis Lab Data Lab results reviewed: Yes I reviewed the patient's lab results Labs: Lab Results 03/27/24 03/27/24 03/27/24 Range/Units 11:25 11:30 11:40 WBC 12.7 H (4.0-11.0) 10^3/uL RBC 4.56 (4.20-5.40) 10^6/uL Hgb 11.9 L (12.0-16.0) g/dL Hct 37.0 (36.0-48.0) % MCV 81.1 (81.0-99.0) fL MCH 26.1 L (26.7-34.0) pg MCHC 32.2 (29.9-35.2) g/dL RDW 14.7 (11.0-15.0) % Plt Count 350 (150-450) 10^3/uL MPV 10.2 (9.5-13.5) fL Neut % (Auto) 63.1 (43.0-75.0) % Lymph % (Auto) 16.8 L (20.5-60.0) % [place] % (Auto) 7.1 (1.7-12.0) % Eos % (Auto) 12.1 H (0.9-7.0) % Baso % (Auto) 0.6 (0.2-2.0) % Neut # (Auto) 8.0 H (1.4-6.5) 10^3/uL Lymph # (Auto) 2.1 (1.2-3.8) 10^3/uL G[place]ard # (Auto) 0.9 H (0.3-0.8) 10^3/uL Eos # (Auto) 1.5 H (0.0-0.7) 10^3/uL Baso # (Auto) 0.1 (0.0-0.1) 10^3/uL Abs Immat Gran (auto) 0.04 H (0.00-0.03) 10^3/uL Imm/Tot Granulo (auto) 0.3 (0.0-0.5) % Sodium 140 (136-145) mmol/L Potassium 3.4 L (3.5-5.1) mmol/L Chloride 105 (98-107) mmol/L Carbon Dioxide 26.5 (21.0-32.0) mmol/L Anion Gap 11.9 BUN 3.0 L (7.0-18.0) mg/dL Creatinine 0.70 (0.55-1.02) mg/dL Est GFR ( Amer) >60 (>=60) Est GFR (Non-Af Amer) >60 (>=60) BUN/Creatinine Ratio 4.3 Glucose 96 (74-106) mg/dL Calcium 8.9 (8.5-10.1) mg/dL Total Bilirubin 0.3 (0.2-1.0) mg/dL AST 13 L (15-37) U/L ALT 20 (14-59) U/L Alkaline Phosphatase 86 (46-116) U/L Total Protein 7.1 (6.4-8.2) g/dL Albumin 3.4 (3.4-5.0) g/dL Globulin 3.7 g/dL Albumin/Globulin Ratio 0.9 Lipase 25.0 (16.0-77.0) U/L Urine Color Lt. yellow (YELLOW) Urine Clarity Clear (CLEAR) Urine pH 6.5 (5.0-9.0) Ur Specific Hines 1.010 (1.005-1.025) Urine Protein Negative (NEG/TRACE) mg/dL Urine Glucose (UA) Negative (NEGATIVE) mg/dL Urine Ketones Negative (NEGATIVE) mg/dL Urine Occult Blood Negative (NEGATIVE) Urine Nitrite Negative (NEGATIVE) Urine Bilirubin Negative (NEGATIVE) Urine Urobilinogen 0.2 (0.2-1.0) EU/dL Ur Leukocyte Esterase Negative (NEGATIVE) SARS-CoV-2 Ag (CV2AG) Negative (NEGATIVE) Streptococcus Screen Negative Imaging Data CT scan - abdomen: Radiologist's impression: ITS Impressions Abdomen/Pelvis CT 03/27/24 11:43 IMPRESSION: 2 cm right renal cortical hypodensity of unknown etiology slightly increased in size from the prior exam. Malignancy should be excluded Electronically authenticated by: KATHARINA CHRISTY Date: 03/27/2024 13:07 Discharge Plan Discharge Chief Complaint: Abdominal Pain Clinical Impression: Diarrhea Patient Disposition: Home, Self-Care Time of Disposition Decision: 13:35 Condition: Good Mode of Transportation: Private Vehicle Prescriptions / Home Meds: New ciprofloxacin HCl [Cipro] 500 mg tablet 500 mg PO BID 7 Days Qty: 14 0RF No Action aspirin 325 mg capsule 325 mg PO DAILY ondansetron 4 mg tablet,disintegrating 4 mg PO Q6H PRN (Reason: nausea and vomiting) Qty: 20 0RF hyoscyamine sulfate [Levsin/SL] 0.125 mg tablet, sublingual 0.125 mg PO Q6H PRN (Reason: abdominal pain) Qty: 20 0RF cephalexin 500 mg capsule 500 mg PO Q8H 10 Days Qty: 5 0RF ondansetron 4 mg tablet,disintegrating 4 mg PO Q6H PRN (Reason: nausea and vomiting) Qty: 12 0RF Print Language: Citizen [place] Instructions: Acute Diarrhea (ED) Referrals: Zoran Christy MD [Primary Care Provider] - 1 week Discharge Date/Time: 03/27/24 14:01
[2024-03-27 14:01] VITALS: BP 156/100; PULSE 71; TEMP 36.7; O2SAT 98
== END 2024-03-27 14:01 | disposition home or self-care (01) ==
PROVIDERS: Emergency Provider Emergency Medicine; PCP Family Medicine
DX: R19.7 Diarrhea, unspecified (principal)
CPT/HCPCS: 36415; 74177; 80053; 81003; 83690; 85025; 87045; 87046; 87070; 87150; 87427; 87811; 87880; 96360; 99285; Q9967

== ENCOUNTER 2024-08-03 23:28 | Emergency (ER) | payer MEDICAID, SELFPAY ==
[2024-08-03 23:31] VITALS: BP 146/107; PULSE 104; TEMP 37; O2SAT 98; BMI 45.3
[2024-08-03 23:32] VITALS: O2SAT 97
[2024-08-03 23:34] VITALS: BP 146/107; O2SAT 97
--- OUTSIDE RECORDS SUMMARY | 2024-08-03 23:35 | XMS_ITS | CCD ---
Author Organization [facility] Care Team Providers Care College Advisor Name Role Phone Zoran Flores Primary Care Provider Heather Taylor MD Unavailable Michael Wiseman MD Unavailable Heather Taylor MD Unavailable [phone] Michael Wiseman MD Unavailable Heather Taylor MD Unavailable [phone] Michael Wiseman MD Unavailable DR ZORAN FLORES Consulting Unavailable NADERER, DR ZORAN Baez Primary Care Unavailable NADERER, DR ZORAN Baez Admitting Unavailable NADERER, DR ZORAN Baez Attending Unavailable NADEREDel, DR ZORAN Baez Primary Care Unavailable MISC, DR HOFFMAN Attending Unavailable MISC, DR HOFFMAN Consulting Unavailable MISC, DR HOFFMAN Admitting Unavailable LE, LEONARD Consulting Unavailable MISC, DR HOFFMAN Admitting Unavailable [...] Primary Care Provider CHELY Flanagan Attending Provider [phone] ZORAN FLORES Primary Care UnavailJeremiah Bose Unavailable Zoran Flores MD Primary Care Provider [phone] URSULA MCGINNIS Attending Unavailable TEJAS JUARES Referring Unavail able NADERER, ZORAN Primary Care Unavailable TEJAS JUARES Attending Unavailable ZORAN FLORES Referring Unavailable NADPJ, ZORAN Primary Care Unavailable LYNDSAY JETT Attending Unavailable ZORAN FLORES Referring Unavailable NADEREDel, ZORAN Primary Care Unavailable TEJAS JUARES Referring Unavailable NADERER, ZORAN Primary Care Unavailable LYNDSAY JETT Referring Unavailable SANDRA, ZORAN Primary Care Unavailable MD Zoran Flores Primary Care Provider Ly, DO Radha Hartley Attending Provider Unavailable Primary Care Provider Unavailabl e Nadramsesr, Zoran Primary Care Unavailable Ly, Radha L Attending Unavailable Ly, Radha L Admitting Unavailable Ly, Radha L Attending Unavailable Ly, Radha L Admitting Unavailable Naderer, oZran Primary Care Unavailable APLINGMARYANA Referring Unavailable HANY ELLISON Attending Unavailable SANDRA, ZORAN Attending Unavailable NADEREDel, ZORAN Attending Unavailable SHAIKH JARAMILLO Attending Unavailable NADERER, ZORAN Attending Unavailable NADERER, ZORAN Attending Unavailable Nadramsesr Zoran DUENAS Primary Care Provider Ly DO, Radha Hartley Attending Provider [phone] Zoran Flores MD Primary Care Provider Allergies Allergy Classification Reported Allergen(s) Allergy Type Date of Onset Reaction(s) Facility Pollen (4 sources) bee pollen Substance Allergy 06-10-20 15 Itching [facility] Sulfonamides (antibiotic) (4 sources) Sulfonamides (Antibiotic) Drug Allergy 06-10-20 15 N[facility]a [facility]iting [facility] (2 sources) bee pollen Propensity to adverse reactions to drug 06-10-20 15 Itching [facility] Phone: (2 sources) Sulfonamides (Antibiotic) Propensity to adverse reactions to drug 06-10-20 15 Nausea And Vomiting [facility] Work Phone: (16 sources) Arcadia-Containing Products Propensity to adverse reactions to drug 06-10-20 15 Nausea And Vomiting, Nausea Only [facility] Work Phone: (7 sources) Eggs Or Egg-Derived Products Propensity to adverse reactions to drug 06-10-20 15 Nausea And Vomiting, Unknown [facility] Phone: (7 sources) Other; Translations: [OTHER] Propensity to adverse reactions 06-10-20 15 Itching [facility] Work Phone: (5 sources) Yeast-Related Products Propensity to adverse reactions to drug 06-10-20 15 Other (See Comments) [facility] Phone: (6 sources) Bee pollen; Translations: [BEE POLLEN] Drug Allergy 12-17-19 17 Itching [facility] (13 sources) [place] Oil; Translations: [CORN OIL] Drug Allergy 12-17-19 17 [facility] (3 sources) cultivated mushroom extract Drug Allergy 10-24-19 19 Nausea [facility] (2 sources) Lactose; Translations: [LACTOSE] Drug Allergy 10-24-19 19 Vomiting [facility] (6 sources) sulfaSALAzine; Translations: [SULFASALAZINE] Drug Allergy 12-17-19 17 [facility] (19 sources) WHEAT DEXTRIN Drug Allergy 12-08-19 19 [facility] Work Phone: (8 sources) [place]Related Products Propensity to adverse reactions to drug 06-10-20 15 Nausea [facility] (8 sources) Egg Or Chicken-Derived Drugs Propensity to adverse reactions to drug 11-24-19 19 [facility] (8 sources) Other (Review Comments!) Propensity to adverse reactions to drug 06-10-20 15 Itching, Hives [facility] (7 sources) Bee pollen Propensity to adverse reactions to drug 12-17-19 17 Itching [facility] (7 sources) Lactose (non-medical use) Propensity to adverse reactions to drug 10-24-19 19 Vomiting [facility] (18 sources) Mushroom Propensity to adverse reactions to drug 10-24-19 19 Nausea, Nausea Only [facility] (7 sources) Pollen Propensity to adverse reactions to drug 06-10-20 15 Itching [facility] (18 sources) Sulfasalazine Propensity to adverse reactions to drug 12-17-19 17 [facility] (20 sources) Sulfonamides (Antibiotic) Propensity to adverse reactions to drug 06-10-20 15 GI intolerance, Hives, Itching, Nausea And Vomiting, Unknown [facility] (2 sources) Abdon albicans allergenic extract Drug Allergy 01-14-20 13 [facility] (2 sources) corn extract Drug Allergy 01-14-20 13 [facility] (9 sources) egg extract; Translations: [EGG] Drug Allergy 02-20-20 16 sick to stomach [facility] (2 sources) Sulfonamides (Antibiotic) Drug allergy (disorder) 01-14-20 13 [facility] (2 sources) Wheat preparation Drug Allergy 01-14-20 13 [facility] (2 sources) Misc-Food; Translations: [Misc-Food] Food allergy (disorder) 01-14-20 13 [facility] (2 sources) Egg Propensity to adverse reactions Unknown [employer] Other (2 sources) Sulfacetamide / Sulfur Drug Allergy pt doesn't remember [employer] Other (12 sources) Sulfonamides (Antibiotic); Translations: [SULFA (SULFONAMIDE ANTIBIOTICS)] Allergy to substance 08-29-19 14 Vomiting [facility] (11 sources) Azithromycin Drug Allergy 11-17-19 23 [facility] (11 sources) Sulfamethoxazole / Trimethoprim Drug Allergy 11-30-19 23 Unknown [facility] (4 sources) Mushroom (edible); Translations: [MUSHROOM] Propensity to adverse reactions to drug (disorder) 06-21-20 [facility] Repository (4 sources) Sulfacetamide Drug Allergy 09-21-19 24 pt doesn't remember [facility] (4 sources) Sulfur Drug Allergy 09-21-19 24 pt doesn't remember [facility] (9 sources) Egg Derived; Translations: [EGG DERIVED] Allergy to substance 12-17-19 17 Nausea [facility] (6 sources) Ketorolac; Translations: [ketorolac] Drug Allergy 10-24-19 24 Itching [facility] (5 sources) Abdon albicans allergenic extract; Translations: [YEAST EXTRACT] Drug Allergy 12-17-19 17 Other (See Comments) [facility] (5 sources) Gluten; Translations: [GLUTEN] Propensity to adverse reactions to food (disorder) 06-21-20 [facility] (5 sources) Lactase; Translations: [LACTASE] Drug Allergy 06-21-20 [facility] (3 sources) NSAIDS (Non-Steroidal Anti-Inflamma; Translations: [NSAIDS (Non-Steroidal Anti-Inflamma] Allergy to substance 04-09-20 I just can't take those [facility] (9 sources) Ketorolac trometamol Propensity to adverse reactions 11-22-19 Itching [facility] (9 sources) Egg-Derived Products Drug Allergy 06-10-20 Nausea And Vomiting, Unknown [facility] (1 source) egg extract Drug Allergy 06-18-20 [facility] Repository NEGATED: Highlighted row has been ruled out!Unclassified (3 sources) Other Propensity to adverse reactions 06-10-20 15 Itching [facility] Medications Current Medications Medication Drug Class(es) Dates [...] as needed for Pain . 0 Active [id number] 200 actuat albuterol 0.09 mg/actuat metered dose inhaler (20 sources) beta2-Adrenerg ic Agonist Start: 2023 take 1 puff(s) by inhalation every four to six hours as needed for wheezing Albuterol Sulfate 90 mcg/actuation HFA aerosol inhaler Active 2 PUFF INHALATION EVERY 4-6 HOURS as needed for shortness of breath or wheezing December 11, 2023 2:14pm Start: 09-21-2023 End: 12-11-2023 Albuterol Sulfate 90 mcg/act uation HFA aerosol inhaler Discontinued INHALATION September 20, 2023 11:00pm December 11, 2023 2:16pm Start: 01-23-2021 take 2 puff(s) by mo uth every four hours as needed albuterol (PROVENTIL HFA) INHALATION HFA inhaler (VENTOLIN,PROAIR,PROVENTIL) 90mcg TAKE 2 PUFFS BY MOUTH EVERY 4 HOURS NEEDED 01/23/2021 Active Start: 12-16-2020 albuterol (PRO VENTIL) nebulizer solution 2.5 mg Start: 09-01-2019 take 2 puff(s) by in halation every four hours as needed for wheezing albuterol (PROVENTIL HFA;VENTOLIN HFA) 90 mcg/actuation inhaler Inhale 2 puffs every 4 (four) hours as needed for wheezing. 1 Inhaler 09/01/2019 Active Start: 09-08-2018 End: 01-18-2020 Albuterol Sulfate Discontinu ed 2 INH INHALATION Q4H 8 September 08, 2018 1:00am January 18, 2020 7:47pm administer with spacer take 1 puff(s) by in halation every four hours for wheezing albuterol HFA 90 mcg/act inhaler Inhale 1 puff every 4 (four) hours if needed for wheezing or shortness of breath. Active take 2 puff(s) by in halation [...] 108 (90 Base) MCG/ACT inhaler 2 puff aspirin 325 mg oral tablet (20 sources) Platelet Aggregation Inhibitor, Nonsteroidal Anti-inflammatory Drug Start: 09-21-2023 take 1 tablet by mouth once daily Aspirin 325 mg tablet Active 325 MG PO Daily September 20, 2023 11:00pm take 1 tablet by mouth in the mo rning aspirin 325 mg EC tablet Take 1 tablet (325 mg total) by mouth in the morning. Active 60 actuat budesonide 0.16 mg/actuat / formoterol fumarate 0.0045 mg/actuat metered dose inhaler (20 sources) Corticosteroid, beta2-Adrenergic Agonist Start: 12-08-2023 End: 05-06-2024 take 2 puff(s) by inhalation in the morning budesonide-formoterol (Symbicort) 160-4.5 MCG/ACT inhaler Indications: Mild persistent asthma, uncomplicated (CMS/HCC) Inhale 2 puffs in the morning and 2 puffs before bedtime. Rinse mouth with water after use to reduce aftertaste and incidence of candidiasis. Do not swallow.. 1 each 5 05/06/2024 Active Start: 03-30-2023 take 2 puff(s) by mo uth every twelve hours budesonide-formoterol (Symbicort) 160-4.5 MCG/ACT inhaler INHALE 2 PUFFS BY MOUTH EVERY 12 HOURS 0 03/30/2023 Active Start: 06-18-2020 take 2 puff(s) by mo uth twice daily SYMBICORT 160-4.5 mcg/actuation inhaler TAKE 2 PUFFS BY MOUTH TWICE A DAY 30.6 Inhaler 3 06/18/2020 Active Start: 01-18-2020 take 1 puff(s) by in halation twice daily Budesonide-Formoterol 160-4.5 mcg/actuation HFA aerosol inhaler Active 2 PUFF INHALATION Twice daily January 17, 2020 11:00pm take 2 puff(s) by in halation twice daily budesonide-formoterol (SYMBICORT) 160-4.5 MCG/ACT AERO Inhale 2 puffs into the lungs 2 times daily 0 Active cetirizine hydrochloride 10 mg oral tablet (20 sources) Histamine-1 Receptor Antagonist Start: 09-21-2023 End: 07-13-2024 take 1 capsule by mouth once daily Cetirizine (Zyrtec) 10 mg capsule Discontinued 10 MG PO Daily September 20, 2023 11:00pm July 13, 2024 11:33am Start: 10-11-2019 End: 08-09-2023 take 1 tablet by mouth once daily cetirizine (ZyrTEC) 10 MG tablet Indications: Polypoid sinus degeneration Take 1 tablet (10 mg) by mouth Daily 90 tablet 3 10/10/2023 Active cetirizine (ZyrT EC) 5 MG chewable tablet Chew Daily. 0 Active ZyrTEC Allergy A ctive cholecalciferol 0.05 mg oral tablet (20 sources) Vitamin D Start: 12-11-2023 take 1 tablet by mouth once daily cholecalciferol (Vitamin D-3) 50 MCG (1999 UT) tablet Indications: Vitamin D deficiency, unspecified , Vitamin D deficiency TAKE 1 TABLET BY MOUTH EVERY DAY 90 tablet 3 04/05/2024 Active Start: 09-21-2023 End: 12-11-2023 Cholecalciferol (Vitamin D3) (Vitamin D3) 50 mcg (2,000 unit) tablet Discontinued PO September 20, 2023 11:00pm December 11, 2023 2:16pm Start: 04-10-2023 take 1 tablet by dana in the morning cholecalciferol (Vitamin D-3) 50 MCG (1999 UT) tablet Take 50 mcg by mouth in the morning. 04/10/2023 Active take 1 capsule by mo ut in the morning cholecalciferol, vitamin D3, 2,000 units capsule Take 1 capsule (2,000 Units total) by mouth in the morning. Active take 1 capsule by mo ut every twenty-four hours Vitamin D3 50 MCG (1999 UT) 1 capsule Orally Once a day Active cholestyramine resin 4000 mg powder for oral suspension (6 sources) Bile Acid Sequestrant Start: 06-26-2024 take 4 g by mouth in the morning cholestyramine (Questran) 4 GM/DOSE powder Take 4 g by mouth in the morning and 4 g in the evening. Take with meals. 06/26/2024 Active Start: 06-26-2024 take 1 dose by mouth once daily Cholestyramine (With Sugar) 4 gram powder Active 4 GM PO Daily 378 June 26, 2024 12:00am administer w/meal; avoid other meds within 1hr before or 4-6hr after dose Start: 04-01-2024 End: 04-09-2024 take 1 dose by mouth twice daily Cholestyramine (With Sugar) 4 gram powder Discontinued 4 GM PO Twice daily 378 March 31, 2024 11:00pm April 09, 2024 12:58pm administer w/meal; avoid other meds within 1hr before or 4-6hr after dose clobetasol propionate 0.5 mg/ml topical cream (2 sources) Corticosteroid Start: 03-21-2024 clobetasoL (TE MOVATE) 0.05 % cream Indications: Vulvar itching Apply 1 Application topically in the morning and 1 Application before bedtime. 30 g 03/21/2024 Active [id number] 0.3 ml EPINEPHrine 1 mg/ml auto-injector (20 sources) alpha-Adrenergic Agonist, beta-Adrenergic Agonist, Catecholamine Start: 11-25-2022 EPINEPHrine (Epip en) 0.3 MG/0.3ML injection syringe INJECT 0.3 ML INTO THE MUSCLE 1 TIME FOR 1 DOSE. IN CASE OF SEVERE ALLERGIC REACTION (ANAPHYLAXIS) 11/25/2022 Active Start: 02-20-2019 EPINEPHrine (E PIPEN 2-AL) 0.3 MG/0.3ML injection Use as instructed for allergic reaction 2 Each 3 02/20/2019 Active EPINEPHrine (EPI PEN) 0.3 mg/0.3 mL auto-injector Inject into the appropriate muscle. 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 30 capsule 07/08/2024 08/07/2024 Active methylPREDNISolone 4 mg oral tablet (2 sources) Corticosteroid Start: 2020 End: 2020 methylPREDNISolone (MEDROL, AL,) 4 MG tablet Take by mouth. 1 kit 0 10/20/2020 10/26/2020 Active montelukast 10 mg oral tablet (20 sources) Leukotriene Receptor Antagonist Start: 2016 End: 2023 take 1 tablet by mouth once daily montelukast (SINGULAIR) 10 mg tablet Take 1 tablet (10 mg total) by mouth nightly. 30 tablet 10/11/2019 Active montelukast (Sin gulair) 4 MG chewable tablet Chew 4 mg at bedtime. Active Singulair Active mupirocin 0.02 mg/mg topical ointment (8 sources) RNA Synthetase Inhibitor Antibacterial Start: 06-23-2021 mupirocin (BACTROBAN) 2 % ointment Apply topically 2 times daily. 15 g 2 06/23/2021 Active Niacin / Simvastatin (2 sources) HMG-CoA Reductase Inhibitor, Nicotinic Acid Simcor Active NIFEdipine 30 mg osmotic 24 hr extended release oral tablet (2 sources) Dihydropyridine Calcium Channel Julian Start: 07-08-2024 take 1 tablet by mouth once daily NIFEdipine XL (Procardia XL) 30 MG 24 hr tablet Indications: Benign essential hypertension (CMS/HCC) Take 1 tablet (30 mg) by mouth Daily Do not crush, chew, or split. 30 tablet 5 07/08/2024 Active Norethin-Eth Estrad-Fe Biphas (LO LOESTRIN FE PO) (5 sources) take 1 tablet by mouth once daily Norethin-Eth Estrad-Fe Biphas (LO LOESTRIN FE PO) Take 1 tablet by mouth daily 0 Active omeprazole 40 mg delayed release oral capsule (20 sources) Proton Pump Inhibitor Start: 02-05-2024 take 1 capsule by mouth twice daily omeprazole (PriLOSEC) [address] capsule Indications: Chronic superficial gastritis without bleeding , Atrophic gastritis TAKE 1 CAPSULE BY MOUTH TWICE A DAY 180 capsule 3 02/05/2024 Active Start: 10-24-2023 take 1 capsule by [facility] once daily Omeprazole 40 mg capsule,delayed release(DR/EC) Active 40 MG PO Daily October 23, 2023 11:00pm Start: 09-21-2023 End: 10-24-2023 Omeprazole 40 mg capsule,del ayed release(DR/EC) Discontinued MG PO September 20, 2023 11:00pm October 24, 2023 2:18pm Start: 09-21-2023 End: 10-24-2023 Omeprazole Discontinued MG P O September 21, 2023 12:00am October 24, 2023 3:18pm Start: 07-26-2023 take 1 capsule by mo uth in the morning omeprazole (PriLOSEC) [address] capsule Take 40 mg by mouth in the morning and 40 mg before bedtime. 0 02/01/2023 Active Start: 05-19-2017 End: 07-20-2017 Omeprazole 40 mg capsule,del ayed release(DR/EC) Discontinued 40 MG PO May 19, 2017 12:00am July 20, 2017 7:02am take 1 capsule by mo uth in the morning omeprazole (PriLOSEC) 20 mg capsule Take 1 capsule (20 mg total) by mouth in the morning. Active ondansetron 4 mg disintegrating oral tablet (9 sources) Serotonin-3 Receptor Antagonist Start: 10-26-2020 End: [...] every eight hours as needed for nausea Ondansetron (Zofran Odt) 4 mg tablet,disintegrating Discontinued 4 MG PO Q8H as needed for nausea 15 5 March 19, 2017 11:00pm March 23, 2017 11:00pm March 24, 2017 11:02pm pantoprazole 40 mg oral granules (4 sources) Proton Pump Inhibitor Start: 10-26-2020 take 1 dose by mouth once daily before breakfast pantoprazole sodium (PROTONIX) 40 MG PACK packet Take 1 packet by mouth every morning (before breakfast) 30 each 3 10/26/2020 Active polyethylene glycol 3350 98419 mg powder for oral solution (11 sources) Osmotic Laxative Start: 02-12-2024 take 6-8 [oz_av] by mouth once daily polyethylene glycol, PEG, 3350 (Glycolax) 17 GM/SCOOP powder Indications: Constipation, unspecified , Constipation TAKE 1 DOSE IN 6-8 OZ OF LIQUID BY MOUTH ONCE DAILY 510 g 2 02/12/2024 Active Start: 08-07-2023 polyethylene g lycol, PEG, 3350 (Glycolax) 17 GM/SCOOP powder Indications: Constipation, unspecified , Constipation TAKE 1 6- 8 OZ BY MOUTH ONCE DAILY 510 g 2 08/07/2023 Active predniSONE 10 mg oral tablet (20 sources) Start: 03-30-2024 take 1 tablet by mouth once daily predniSONE (Deltasone) 10 MG tablet Take 10 mg by mouth Daily 03/30/2024 Active Start: 09-21-2023 End: 10-24-2023 take 1 tablet by mouth twice daily Prednisone 20 mg tablet Discontinued 20 MG PO Twice daily 10 September 20, 2023 11:00pm October 24, 2023 2:18pm Start: 11-02-2021 End: 01-31-2022 predniSONE (DELTASONE) 10 [...] 60 mg Start: 09-08-2018 End: 01-18-2020 take 1 tablet by mouth once daily at mealtime Prednisone 50 mg tablet Discontinued 50 MG PO Daily 5 September 08, 2018 12:00am January 18, 2020 6:47pm administer with food or milk vitamin B12 (3 sources) Vitamin B12 Start: 06-05-2024 take 1 tablet by mouth once daily cyanocobalamin (vitamin B-12) Active 1 TAB PO Daily June 05, 2024 12:00am take 1 tablet by mouth in the mo rning cyanocobalamin (vitamin B-12) 50 mcg tablet Take 1 tablet (50 mcg total) by mouth in the morning. Active Completed/Discontinued Medications Medication Drug Class(es) Dates [...] ipratropium-albuterol (DUONE B) nebulizer solution 1 ampule Albuterol Sulfate 90 mcg/actuation HFA aerosol inhaler (1 source) Start: 09-08-2018 End: 01-18-2020 Albuterol Sulfate 90 mcg/actuation HFA aerosol inhaler Discontinued 2 INH INHALATION Q4H as needed for shortness of breath or wheezing September 08, 2018 12:00am January 18, 2020 6:47pm administer with spacer aluminum & magnesium hydroxide-simethicone (MAALOX) 30 mL, [...] times daily 0 10/19/2020 Discontinued (Therapy completed) amoxicillin 875 mg / clavulanate 125 mg oral tablet (7 sources) Penicillin-class Antibacterial Start: 03-30-2024 End: 07-08-2024 take 1 tablet by mouth in the morning amoxicillin-clavulanate (Augmentin) 875-125 MG tablet Take 875 mg by mouth in the morning and 875 mg before bedtime. 03/30/2024 07/08/2024 Discontinued Start: 11-02-2021 End: 11-16-2021 take 1 tablet by mouth twice daily at mealtime amoxicillin-clavulanate (Augmentin) 875-125 MG per tablet Take 1 Tablet by mouth 2 times daily for 14 days. With Food 28 Tablet 0 11/02/2021 11/16/2021 Active atenolol 50 mg / chlorthalidone 25 mg oral tablet (8 sources) Thiazide-like Diuretic, beta-Adrenergic Julian Start: 01-02-2024 End: 07-08-2024 take 1 tablet by mouth once daily atenolol-chlorthalidone (Tenoretic 50) 50-25 MG tablet Indications: Primary hypertension (CMS/HCC) Take 1 tablet by mouth Daily 30 tablet 1 01/02/2024 07/08/2024 Discontinued atropine sulfate 0.025 mg / diphenoxylate hydrochloride 2.5 mg oral tablet (7 sources) Anticholinergic, Cholinergic Muscarinic Antagonist, Antidiarrheal Start: 03-20-2017 End: 07-20-2017 take 8 tablets by mouth once as needed for diarrhea Diphenoxylate-Atropine (Lomotil) 2.5-0.025 mg tablet Discontinued 2 TAB PO .q 8 as needed for diarrhea March 19, 2017 11:00pm July 20, 2017 7:02am cephalexin 500 mg oral tablet (7 sources) Cephalosporin Antibacterial Start: 01-18-2020 End: 09-21-2023 take 1 tablet by mouth twice daily Cephalexin 500 mg tablet Discontinued 500 MG PO Twice daily 10 January 17, 2020 11:00pm September 21, 2023 8:47am dicyclomine hydrochloride 10 mg oral capsule (7 sources) Anticholinergic Start: 03-20-2017 End: 07-20-2017 take 2 capsules by mouth every eight hours as needed Dicyclomine (Bentyl) 10 mg capsule Discontinued 20 MG PO Q8H as needed for abdominal discomfort March 20, 2017 5:56pm July 20, 2017 7:02am Norethindrone-E.E stradiol-Iron (9 sources) Estrogen Start: 03-20-2017 End: 09-21-2023 take 1 tablet by mouth once daily Norethindrone-E.Estradiol- Iron 1 mg-10 mcg (24)/10 mcg (2) tablet Discontinued 1 TAB PO Daily March 19, 2017 11:00pm September 21, 2023 8:48am Start: 03-20-2017 End: 09-21-2023 take 1 tablet by mouth once daily Norethindrone-E.Estradiol-Iron Discontin ued 1 TAB PO Daily March 20, 2017 [...] tablet 6 08/17/2016 10/19/2020 Discontinued (LIST CLEANUP) lamoTRIgine 25 mg oral tablet (6 sources) Mood Stabilizer, Anti-epilepti c Agent Start: 04-29-2024 End: 07-08-2024 take 1 tablet by mouth once daily at bedtime, then take 2 tablets by mouth once daily lamoTRIgine (LaMICtal) 25 MG tablet Indications: Mood disorder (CMS/HCC) TAKE 1 TABLET BY MOUTH EVERY DAY AT BEDTIME X 2 WEEKS, THEN INCREASE TO 2 TABLETS NIGHTLY 180 tablet 1 04/29/2024 07/08/2024 Discontinued Start: 04-05-2024 take 1 tablet by dana th once daily at bedtime, then take 2 tablets by mouth once daily at bedtime lamoTRIgine (LaMICtal) 25 MG tablet Indications: Mood disorder (CMS/HCC) 1 PO QHS x 2 weeks then 2 PO QHS 60 tablet 2 04/05/2024 Active Start: 04-05-2024 take 1 tablet by dana th once daily at bedtime, then take 2 tablets by mouth once daily at bedtime lamoTRIgine (LaMICtal) 25 MG tablet Indications: Mood disorder (CMS/HCC) 1 PO QHS x 2 weeks then 2 PO QHS 60 tablet 2 04/05/2024 Active loratadine 10 mg oral tablet (8 sources) Start: 03-20-2017 End: 09-21-2023 take 1 tablet by mouth once daily Loratadine 10 mg tablet Discontinued 1 TAB PO Daily March 19, 2017 11:00pm September 21, 2023 8:47am 24 hr metFORMIN hydrochloride 500 mg extended release oral tablet (8 sources) Biguanide Start: 11-23-2023 End: 12-11-2023 take 2 tablets by mouth twice daily Metformin 500 mg tablet extended release 24 hr Discontinued 0 .ROUTE .COMPLEX 360 November 23, 2023 3:54pm December 11, 2023 2:16pm TAKE 2 TABLETS BY MOUTH TWICE A DAY FOR 30 DAYS Start: 10-24-2023 End: 11-23-2023 Metformin 500 mg tablet exte nded release 24 hr Discontinued 1000 MG PO Twice daily 120 October 23, 2023 11:00pm November 23, 2023 3:54pm Start: 10-24-2023 End: 11-23-2023 take 1000 mg by mouth twice daily Metformin Discontinued 1000 MG PO Twice daily 120 October 24, 2023 12:00am November 23, 2023 4:54pm metroNIDAZOLE 500 mg oral tablet (1 source) Nitroimidazole Antimicrobial Start: 04-22-2024 End: 06-05-2024 take 1 tablet by mouth three times daily Metronidazole 500 mg tablet Discontinued 500 MG PO Three times daily 42 14 April 21, 2024 11:00pm June 05, 2024 12:36pm ofloxacin 3 mg/ml otic solution (7 sources) Quinolone Antimicrobial Start: 08-23-2018 End: 08-30-2018 Ofloxacin 0.3 % drops Discontinued 5 DROPS EAR-LEFT Daily 5 7 August 23, 2018 12:00am August 29, 2018 12:00am August 30, 2018 12:01am Start: 08-23-2018 End: 08-30-2018 Ofloxacin Discontinued 5 KELLIE PS EAR-LEFT Daily 5 7 August 23, 2018 1:00am August 30, 2018 1:01am oseltamivir 75 mg oral capsule (7 sources) Neuraminidase Inhibitor Start: 09-08-2018 End: 01-18-2020 take 1 capsule by mouth every twelve hours Oseltamivir (Tamiflu) 75 mg capsule Discontinued 75 MG PO Q12H 10 5 September 08, 2018 12:00am January 18, 2020 6:47pm phenazopyridine hydrochloride 200 mg oral tablet (7 sources) Start: 01-18-2020 End: 09-21-2023 take 1 tablet by mouth three times daily at mealtime Phenazopyridine 200 mg tablet Discontinued 200 MG PO Three times daily as needed for urinary retention 10 January 17, 2020 11:00pm September 21, 2023 8:48am administer with a full glass of water after each meal 50 ml sodium chloride 9 mg/ml injection (2 sources) Start: 10-26-2020 End: 10-26-2020 0.9 % sodium chloride bolus Start: 10-25-2020 End: 10-26-2020 0.9 % sodium chloride infusi on TB Test (2 sources) Start: 08-21-2019 TB Test Aug 0.1 mL vancomycin 125 mg oral capsule (1 source) Glycopeptide Antibacterial Start: 04-16-2024 End: 04-22-2024 take 1 capsule by mouth four times daily Vancomycin (Vancocin) 125 mg capsule Discontinued 125 MG PO Four times daily 56 April 15, 2024 11:00pm April 22, 2024 2:06pm Problems Active Problems Problem Classification Problem Date Documented Da te Episodic/Chronic Acute and chronic tonsillitis (13 sources) Chronic adenotonsillitis; Translations: [Chronic tonsillitis and adenoiditis] Onset: 06-18-2015 06-18-2015 Chronic Allergic reactions (10 sources) Allergy to food; Translations: [Allergy to other foods] Onset: 02-20-2019 02-20-2019 Episodic Anxiety disorders (20 sources) Anxiety; Translations: [Anxiety disorder, unspecified] Onset: 06-27-2023 Resolved: 07-08-2024 06-27-2023 Chronic Asthma (20 sources) Exacerbation of intermittent asthma; Translations: [Mild intermittent asthma with (acute) exacerbation] Onset: 02-28-2022 Chronic Comment on above: Problem List clean-u p per request of Phys. EHR Cmte Cardiac dysrhythmias (6 sources) Palpitations; Translations: [Palpitations] Onset: 07-08-2024 07-08-2024 Episodic Conditions associated with dizziness or vertigo (1 source) Dizziness and giddiness; Translations: [Dizziness and giddiness] Onset: 04-04-2023 Episodic Delirium, dementia, and amnestic and other cognitive disorders (7 sources) Postconcussion syndrome; Translations: [Postconcussional syndrome] 07-20-2017 Chronic Comment on above: Problem List clean-u p per request of Phys. EHR Cmte Disorders usually diagnosed in infancy, childhood, or adolescence (15 sources) Attention deficit hyperactivity disorder, predominantly inattentive type; Translations: [Other specified behavioral and emotional disorders with onset usually occurring in childhood and adolescence] Onset: 06-27-2023 06-27-2023 Chronic Essential hypertension (15 sources) Essential hypertension; Translations: [Essential (primary) hypertension] Onset: 11-22-2023 Resolved: 07-08-2024 11-22-2023 Chronic Gastritis and duodenitis (13 sources) Gastritis; Translations: [Unspecified chronic gastritis without bleeding] Onset: 06-27-2023 06-27-2023 Chronic Gastrointestinal hemorrhage (2 sources) Rectal hemorrhage; Translations: [Hemorrhage of anus and rectum] Episodic Glaucoma (3 sources) Glaucoma; Translations: [Unspecified glaucoma] 12-05-2023 Chronic Immunizations and screening for infectious disease (7 sources) Contact with or exposure to other viral diseases; Translations: [Close exposure to COVID-19 virus] Onset: 2024 Episodic Joint disorders and dislocations; trauma-related (11 sources) Derangement of right knee; Translations: [Unspecified internal derangement of right knee] Onset: 05-17-2023 05-17-2023 Chronic Menstrual disorders (2 sources) Irregular periods; Translations: [Irregular menstruation, unspecified] Onset: 06-21-2019 06-21-2019 Chronic Mood disorders (10 sources) Mood disorder; Translations: [Unspecified mood [affective] disorder] Onset: 04-05-2024 04-05-2024 Chronic Nausea and vomiting (8 sources) Nausea, vomiting and diarrhea; Translations: [Nausea with vomiting, unspecified] Episodic Nutritional deficiencies (20 sources) Vitamin D deficiency; Translations: [Vitamin D deficiency, unspecified] Onset: 06-27-2023 06-27-2023 Chronic Other diseases of kidney and ureters (13 sources) Renal mass; Translations: [Other specified disorders of kidney and ureter] Onset: 07-27-2023 08-22-2023 Chronic Other diseases of kidney and ureters (1 source) Other specified disorders of kidney and ureter; Translations: [Renal mass] Onset: 09-12-2023 Chronic Other disorders of stomach and duodenum (2 sources) Indigestion; Translations: [Functional dyspepsia] Episodic Other female genital disorders (1 source) Vaginal discharge Onset: 03-21-2024 Episodic Other gastrointestinal disorders (20 sources) Irritable bowel syndrome with diarrhea; Translations: [Irritable bowel syndrome with diarrhea] Onset: 08-17-2016 08-17-2016 Chronic Other gastrointestinal disorders (5 sources) Irritable bowel syndrome; Translations: [Irritable bowel syndrome without diarrhea] 10-24-2023 Chronic Comment on above: Problem List clean-u p per request of Phys. EHR Cmte Other gastrointestinal disorders (2 sources) Irritable bowel syndrome without diarrhea; Translations: [Irritable bowel syndrome] 10-24-2023 Chronic Other gastrointestinal disorders (1 source) Irritable bowel syndrome Onset: 08-17-2016 02-20-2019 Chronic Other gastrointestinal disorders (2 sources) Constipation; Translations: [Constipation, unspecified] Episodic Other gastrointestinal disorders (2 sources) Gagging; Translations: [Other specified symptoms and signs involving the digestive system and abdomen] Episodic Other gastrointestinal disorders (12 sources) Diarrhea; Translations: [Diarrhea, unspecified] 03-20-2017 Episodic [...] abdomen] Episodic Other gastrointestinal disorders (3 sources) Diarrhea, unspecified; Translations: [Diarrhea] Onset: 06-18-2024 04-01-2024 Episodic Other inflammatory condition of skin (2 sources) Pruritus vulvae; Translations: [Pruritus vulvae] Onset: 03-21-2024 Episodic Other inflammatory condition of skin (1 source) Pruritus of vulva; Translations: [Pruritus vulvae] 08-01-2024 Episodic Other liver diseases (11 sources) Fatty (change of) liver, not elsewhere classified; Translations: [Other chronic nonalcoholic liver disease] Onset: 09-04-2023 09-04-2023 Chronic Other nervous system disorders (2 sources) Carpal tunnel syndrome of right wrist; Translations: [Carpal tunnel syndrome, right upper limb] Chronic Other nervous system disorders (1 source) Postoperative pain ; Translations: [Other acute postprocedural pain] Episodic Other non-traumatic joint disorders (1 source) Effusion, right knee Episodic Other nutritional; endocrine; and metabolic disorders (12 sources) Obesity; Translations: [Obesity, unspecified] Onset: 10-08-2013 02-20-2019 Chronic Other nutritional; endocrine; and metabolic disorders (7 sources) Body mass index 40+ - severely obese; Translations: [Body mass index (BMI) 40.0-44.9, adult] 10-24-2023 Chronic Other nutritional; endocrine; and metabolic disorders (11 sources) Morbid obesity; Translations: [Morbid (severe) obesity due to excess calories] Onset: 06-27-2023 06-27-2023 Chronic Other nutritional; endocrine; and metabolic disorders (2 sources) Body mass index (BMI) 50.0-59.9, adult; Translations: [Body Mass Index 50.0-59.9, adult] 10-24-2023 Chronic Other nutritional; endocrine; and metabolic disorders (2 sources) Obesity, unspecified; Translations: [Obesity, unspecified] 10-24-2023 Chronic Other nutritional; endocrine; and metabolic disorders (1 source) Obesity, unspecified Onset: 10-08-2013 02-20-2019 Chronic Other upper respiratory disease (7 sources) Allergic rhinitis; Translations: [Allergic rhinitis, unspecified] Onset: 02-20-2019 02-20-2019 Chronic Other upper respiratory disease (5 sources) Seasonal allergy; Translations: [Other seasonal allergic rhinitis] Onset: 06-21-2019 12-05-2023 Chronic Other upper respiratory disease (1 source) Allergic rhinitis, cause unspecified Onset: 02-20-2019 02-20-2019 Chronic Other upper respiratory disease (2 sources) Polyp of nasal cavity and/or nasal sinus; Translations: [Nasal polyp, unspecified] Episodic Other upper respiratory disease (1 source) Nasal polyp, unspecified; Translations: [NASAL POLYP UNSPECIFIED] Onset: 11-24-2022 Episodic Other upper respiratory disease (1 source) Polypoid sinus degeneration; Translations: [POLYPOID SINUS DEGENERATION] Onset: 11-24-2022 Episodic Other upper respiratory infections (20 sources) Chronic sinusitis; Translations: [Chronic sinusitis, unspecified] Onset: 10-31-2018 Chronic Other upper respiratory infections (3 sources) Acute upper respiratory infection, unspecified; Translations: [Acute sinusitis, unspecified] Onset: 02-28-2022 09-21-2023 Episodic Residual codes; unclassified (9 sources) Hypersomnia; Translations: [Hypersomnia, unspecified] Onset: 09-04-2023 09-04-2023 Chronic Unclassified (2 sources) COUGH, UNSPECIFIED; Translations: [COUGH, UNSPECIFIED] Onset: 02-28-2022 Unclassified (1 source) CONTACT W/AND (SUSP) EXPOS COVID-19; Translations: [CONTACT W/AND (SUSP) EXPOS COVID-19] Onset: 02-28-2022 Unclassified (1 source) Vaginal Itching Onset: 03-21-2024 Unclassified (1 source) STD Discussion Onset: 2024 Urinary tract infections (7 sources) Urinary tract infectious disease; Translations: [Urinary tract infection, site not specified] 01-18-2020 Episodic Comment on above: Problem List clean-u p per request of Phys. EHR Cmte Past or Other Problems Problem Classification Problem Date Documented Da te Episodic/Chronic Abdominal pain (11 sources) Left upper quadrant pain; Translations: [Left upper quadrant pain] Onset: 06-21-2019 03-20-2017 Episodic Comment on above: Problem List clean-u p per request of Phys. EHR Cmte Diabetes mellitus without complication (18 sources) Prediabetes; Translations: [Prediabetes] Onset: 09-04-2023 10-24-2023 Episodic Fluid and electrolyte disorders (11 sources) Hypokalemia; Translations: [Hypokalemia] Onset: 07-27-2023 07-27-2023 Episodic Genitourinary symptoms and ill-defined conditions (13 sources) Polyuria; Translations: [Polyuria] Onset: 07-27-2023 Resolved: 07-08-2024 07-27-2023 Episodic Headache; including migraine (9 sources) Orthostatic headache ; Translations: [Orthostatic headache] Onset: 11-22-2023 11-22-2023 Episodic Other aftercare (1 source) Other intermediate designer (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; Translations: [OTH PRODUCTION TESTER CURRENT DRUG THERAPY] Onset: 02-28-2022 Episodic Other circulatory disease (6 sources) Elevated blood-pressure reading without diagnosis of hypertension; Translations: [Elevated blood-pressure reading, without diagnosis of hypertension] Onset: 04-05-2024 04-05-2024 Episodic Other ear and sense organ disorders (1 source) Impacted cerumen, right ear; Translations: [IMPACTED CERUMEN RIGHT EAR] Onset: 02-28-2022 Episodic Other nervous system disorders (8 sources) Loss of sense of smell; Translations: [Anosmia] Onset: 09-09-2020 Episodic Other nervous system disorders (11 sources) Paresthesia; Translations: [Paresthesia of skin] Onset: 06-27-2023 06-27-2023 Episodic Other nervous system disorders (1 source) Disturbances of sensation of smell and taste Onset: 09-09-2020 09-09-2020 Episodic Other non-traumatic joint disorders (12 sources) Pain in right knee; Translations: [Pain in joint, lower leg] Onset: 05-17-2023 Episodic Other non-traumatic joint disorders (11 sources) Multiple joint pain; Translations: [Pain in unspecified joint] Onset: 06-27-2023 06-27-2023 Episodic Other upper respiratory disease (12 sources) Deviated nasal septum; Translations: [Deviated nasal septum] Onset: 06-18-2015 06-18-2015 Episodic Other upper respiratory disease (14 sources) Hypertrophy of nasal turbinates; Translations: [Hypertrophy [...] SINUSES] Onset: 02-28-2022 Episodic Other upper respiratory disease (11 sources) Polypoid sinus degeneration; 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] Onset: 06-27-2023 06-27-2023 Episodic Other upper respiratory disease (2 sources) Other disease of nasal cavity and sinuses Onset: 10-31-2018 10-31-2018 Episodic Other upper respiratory disease (1 source) Deviated nasal septum Onset: 10-31-2018 10-31-2018 Episodic Other upper respiratory disease (1 source) Hypertrophy of nasal turbinates Onset: 06-18-2015 02-20-2019 Episodic Residual codes; unclassified (11 sources) Persistent insomnia; Translations: [Insomnia, unspecified] Onset: 06-27-2023 06-27-2023 Episodic Spondylosis; intervertebral disc disorders; other back problems (11 sources) Lumbago with sciatica; Translations: [Lumbago with sciatica, left side] Onset: 06-27-2023 06-27-2023 Episodic Unclassified (1 source) COUGH, UNSPECIFIED; Translations: [COUGH, UNSPECIFIED] Onset: 02-25-2022 Viral infection (4 sources) Other specified viral infection; Translations: [Disease caused by 2019-nCoV] Onset: 02-23-2024 Episodic Results Test Name Value Interpretation Reference Range Facility Clostridioides difficile tox in B tcdB gene [Presence] in Stool by MARY with probe deteOrdered By: Radha Brandon on 06-18-2024 C. difficile toxin B tcdB gene MARY+probe Ql (Stl) Clostridioides difficile toxin B tcdB gene [Presence] in Stool by MARY with probe dete Negative [facility] Comment on above: Testing performed by RT-PCR Clostridium Difficileon 06-09 Clostridium Difficile Negative Normal Negative [facility] Comment on above: Order Comment: > or = to 3 loose/watery stools in the last 24 HRS? Y Is patient on promotility agents or tube feeding? N Result Comment: Test ing performed by RT-PCR PERFORMED BY: [place] [address] PATHOLOGIST PUBLIC HEALTH ADMINISTRATOR GUANACO ROSA M.D. Performed By: #### C DT #### [address] HCG ( test) IAdamon d Ql (U)Ordered By: Radha Brandon on 06-18-2024 HCG ( test) Ql (U) Urine human chorionic gonadotropin (hCG) detection by immunoassay [facility] HCG,Urineon 06-18-2024 Beta HCG ( test) Ql (U) Negative Normal [facility] Comment on above: Result Comment: PERF ORMED BY: [facility] [place] [id number] PATHOLOGIST PUBLIC HEALTH ADMINISTRATOR GUANACO ROSA M.D. Performed By: #### U HCG #### [address] [place] [id number] [facility] 06-18-2024 L Specimen: [id number] Received: 06/18/24 Status: MILKA Sheela Num: [id number] Spec Type: Surgical Subm Dr: Radha Brandon DO Tissues: A Colon Biopsy (RANDOM RT COLON BX R/O MICRO) B Colon Biopsy (RANDOM LT COLON BX R/O MICRO) Procedures: ARLEY/Vicente Lamar/Micro L4/2 Age/ Patient Sex Location Account Attending Physician Melanie Ennis 29/ [id number] Radha Brandon DO SPEC NUM: [id number] RECD: 06/18/24 STATUS: MILKA SHEELA NUM: [id number] MONA: 06/18/24- DR: Radha Brandon DO ENTERED: 06/18/[address] [facility]: SPEC TYPE: Surgical DEPT: S ENTERED BY: [id number] RECV BY: [id number] ORDERED: HE/4, Gross/Micro L4/2 ORDERED: HE/4, Gross/Micro L4/2 Pathological Diagnosis A. Right colon, biopsy: No evidence of colitis. B. Left colon, biopsy: No evidence of colitis. Clinical Information Diarrhea. Part A rule out microscopic colitis, Part B rule out microscopic colitis Gross Description Part A is received in formalin labeled with the patients name, date of , and random right colon BX are 5 nelson-king, focally erythematous, friable, 0.3 to 0.5 cm in greatest dimension tissue bits. The specimen is entirely submitted in a single cassette. (1, ns, [id number] A) Part B is received in formalin labeled with the patients name, date of , and random left colon BX are 5 nelson-king, focally erythematous, friable, 0.2 to 0.5 cm in greatest dimension tissue bits. The specimen is entirely submitted in a single cassette. (1, ns, [id number] B) JG Specimen: [id number] Received: 06/18/24 Status: MILKA Sheela Num: [id number] Spec Type: Surgical Subm Dr: Radha Brandon DO Tissues: A Colon Biopsy (RANDOM RT COLON BX R/O MICRO) B Colon Biopsy (RANDOM LT COLON BX R/O MICRO) Procedures: Vicente AGUIAR/Micro L4/2 Patient: Melanie Ennis [id number] (Continued) Specimen: [id number] Received: 06/18/24 (Continued) Signed (signature on file) Guanaco Rosa MD 06/19/24 1623 Specimen: [id number] Received: 06/18/24 Status: MILKA Bhat Num: [id number] Spec Type: Surgical Subm Dr: Radha Brandon DO Tissues: A Colon Biopsy (RANDOM RT COLON BX R/O MICRO) B Colon Biopsy (RANDOM LT COLON BX R/O MICRO) Procedures: Vicente AGUIAR/Micro L4/2 Patient: Melanie Ennis [id number] (Continued) Specimen: [id number] Received: 06/18/24 (Continued) CPT Codes 23784d4 Specimen: [id number] Received: 06/18/24 Status: MILKA Bhat Num: [id number] Spec Type: Surgical Subm Dr: Radha Brandon DO Tissues: A Colon Biopsy (RANDOM RT COLON BX R/O MICRO) B Colon Biopsy (RANDOM LT COLON BX R/O MICRO) Procedures: HE/4, Gross/Micro L4/2 Patient: Melanie Ennis [id number] (Continued) Signed (signature on file) Guanaco Rosa MD 06/19/24 1623 Normal [facility] Celiacon 04-15-2024 Deamidated Gliadin Abs, IgA 7 Normal 0-19 [facility] Comment on above: Result Comment: Nega tive 0 - 19 Weak Positive 20 - 30 Moderate to Strong Positive >30 Performed By: #### C ELIAC #### [facility] , #### CDT #### [facility] [address] [place] [address] [place] Deamidated Gliadin Abs, IgG 2 Normal 0-19 [facility] Comment on above: Result Comment: Nega tive 0 - 19 Weak Positive 20 - 30 Moderate to Strong Positive >30 Performed By: #### C ELIAC #### [facility] , #### CDT #### [facility] [address] [place] [address] [place] Endomysial Antibody IgA Negative Normal Negative [facility] Comment on above: Performed By: #### C ELIAC #### [facility] , #### CDT #### [facility] [address] [place] [address] [place] Immunoglobulin A, Qn, Serum 185 mg/dL Normal 87-352 [facility] Comment on above: Result Comment: Perf ormed at: - [facility] [address] [id number] Staffing Analyst: De Thompson PhD, Phone: [phone] PERFORMED BY: [place] [address] PATHOLOGIST PUBLIC HEALTH ADMINISTRATOR AYDEN ZHONG M.D. Performed By: #### C ELIAC #### [facility] , #### CDT #### [address] T-Transglutaminase (tTG) IgA <2 Normal 0-3 [facility] Comment on above: Result Comment: Nega tive 0 - 3 Weak Positive 4 - 10 Positive >10 Tissue Transglutaminase (tTG) has been identified as the endomysial antigen. Studies have demonstr- ated that endomysial IgA antibodies have over 99% specificity for gluten sensitive enteropathy. Performed By: #### C ELIAC #### [facility] , #### CDT #### [facility] [address] [place] [address] T-Transglutaminase (tTG) IgG 2 Normal 0-5 [facility] Comment on above: Result Comment: Nega tive 0 - 5 Weak Positive 6 - 9 Positive >9 Performed By: #### C ELIAC #### [facility] , #### CDT #### [facility] [address] [place] [address] Clostridium Difficileon 10-0 Clostridium Difficile Positive Invalid Interpretation Code Negative [facility] Comment on above: Result Comment: Resu lts called at 1129 on 04/16/24 Testing performed by RT-PCR PERFORMED BY: [place] [address] PATHOLOGIST PUBLIC HEALTH ADMINISTRATOR AYDEN ZHONG M.D. Performed By: #### C ELIAC #### [facility] , #### CDT #### [facility] [address] E COLI SHIGA TOXIN EIAon E COLI SHIGA TOXIN EIA E coli Shiga Toxin EIA Negative [facility] E COLI SHIGA TOXIN EIA Performed at: [facility] E COLI SHIGA TOXIN EIA [address] [place], [place] [id number] [facility] E COLI SHIGA TOXIN EIA Staffing Analyst: De Thompson PhD, Phone: [phone] [facility] No Panel Informationon 03-29 [facility] SALMONELLA/SHIGELLA SCREENon 03-29-2024 SALMONELLA/SHIGELLA SCREEN Salmonella/Shigella Screen [facility] SALMONELLA/SHIGELLA SCREEN No Salmonella or Shigella recovered. [facility] CHLAMYDIA/GC BY PCRon 2023 CHLAMYDIA/GC BY PCR [...] are dependent on adequate specimen collection. Normal [facility] Comment on above: Performed By: #### C GS #### [facility] ([id number]) [address], [address] [place] [address] URINE CULTUREon 03-21-2024 Bacteria identified Cx Nom (U) CULTURE RESULTS <10,000 ORGANISMS/ML NORMAL URO GENITAL SAMAN Normal [facility] Comment on above: Performed By: #### 6 30-4 #### [facility] ([id number]) [address] [place] [address] VAGINITIS PANEL PCRon 2023 VAGINITIS PANEL PCR BACT. VAGINOSIS DNA Not detected (qualifier value) Qualitative results are reported based on detection and quantitation of targeted organism markers which include: Lactobacillus spp. (L. crispatus and L. jensenii), Gardnerella vaginalis, Atopobium vaginae, Bacterial Vaginosis Associated Bacteria-2 (BVAB-2) and Megasphaera-1 BADON SPECIES DNA Not detected (qualifier value) Abdon [...] clinical presentation to determine patient diagnosis. Normal [facility] Comment on above: Performed By: #### V PPCR #### [facility] ([id number]) [address] [place] [address], [address] [place] [address] URINE CULTURE, ROUTINEon Bacteria identified Cx Nom (U) Urine Culture, Routine [facility] Bacteria identified Cx Nom (U) Mixed urogenital saman [facility] Bacteria identified Cx Nom (U) 10,000-25,000 colony forming units per mL [facility] Bacteria identified Cx Nom (U) [facility] Bacteria identified Cx Nom (U) [address] [place], [place] [id number] [facility] Bacteria identified Cx Nom (U) Staffing Analyst: De Thompson PhD, Phone: [phone] [facility] ACUTE HEPATITIS PANELon 02-07 ANTI HCV W/PCR REFLX Non-Reactive Normal NRCT Pr [facility] Comment on above: Result Comment: If recent infection suspected, recommend repeat testing (>2 months). Pvfqra-zd-lqxyls ratio is <0.80. Performed By: #### [place], [address]-3, HSVP, 06609-4 #### [facility] ([id number]) [address] [place] [address], [address] [place] [address] HEPATITIS A IGM Non-Reactive Normal NRCT [facility] Comment on above: Performed By: #### [place] HP, [address]-6, HSVP, 51553-5 #### [facility] ([id number]) [address], [address] [place] [address] HEPATITIS B CORE IGM Negative Normal NEG [facility] Comment on above: Performed By: #### [place] HP, 794[address]-2, HSVP, 99527-0 #### [facility] ([id number]) [address], [address] [place] [address] HEPATITIS B SURF AG Negative Normal NEG [facility] Comment on above: Performed By: #### [place], [address]-8, HSVP, 26769-6 #### [facility] ([id number]) [address], [address] [address] CHLAMYDIA/GC BY PCRon 2023 CHLAMYDIA/GC BY PCR [...] are dependent on adequate specimen collection. Normal [facility] Comment on above: Performed By: #### C GS #### [facility] ([id number]) [address], [address] [place] [address] HERPES IgG PROFILEon 024 HERPES 1 IgG 5.6 AI High <0.9 [facility] Comment on above: Result Comment: Interpretation-------- <0.9 Negative 0.9 - 1.0 Equivocal >1.0 Positive Performed By: #### [place], [address]-8, HSVP, 56139-3 #### [facility] ([id number]) [address], [address] [place], [place] [address] HERPES 2 IgG <0.2 Normal <0.9 [facility] Comment on above: Result Comment: Interpretation-------- <0.9 Negative 0.9 - 1.0 Equivocal >1.0 Positive Performed By: #### [place], 00791-8, HSVP, 39417-2 #### [facility] ([id number]) [address] [place] [address], [address] [address] HIV 1+2 Ab+HIV1 p24 Ag IA Ql on 2024 HIV 1 and 2 Ab/Ag Screen Non-Reactive Normal NRCT [facility] Comment on above: Result Comment: This [...] or diagnoses. Performed By: #### [place], [address]-5, HSVP, 44672-2 #### [facility] ([id number]) [address] [place] [address], [address] [address] T. pallidum IgG+IgM IA Ql (S )on 2024 Syphilis Total <0.2 Normal 0.0-0.8 [facility] Comment on above: Result Comment: NON REACTIVE No serologic evidence of infection to Treponema pallidum (syphilis). Repeat testing may be considered in patients with suspected acute or primary syphilis in 2 to 4 weeks. Performed By: #### [place], 68389-4, HSVP, 16642-6 #### [facility] ([id number]) [address] [place] [address], [address] [place] [address] VAGINITIS PANEL PCRon 2023 VAGINITIS PANEL PCR [...] clinical presentation to determine patient diagnosis. [facility] Comment on above: Performed By: #### V PPCR #### [facility] ([id number]) [address], [address] [place] [address] COVID Cepheidon 09-21-2023 SARS-CoV-2 (COVID-19) RNA MARY+probe Ql (Unsp spec) Negative [facility] No Panel Informationon 09-20 POC Influenza A (PCR) Negative [facility] POC Influenza B (PCR) Negative [facility] CNOVon 09-12-2023 CNOV Office Visit (URFHR) MELANIE ENNIS ([id number]) 1995 F Date Time Provider Department 09/12/23 2:20 PM URSULA MCGINNIS URFHR During your visit today, we recorded the following information about you: Temperature Pulse Blood pressure 98.5 degrees 100/minute 158/86 Ursula Mcginnis MD 09/12/2023 8:11 PM Signed [facility] NEW PATIENT HISTORY [...] for instances in which biopsy results will change management manager, while explaining the risks and limitations of [...] VTE, and risk of cardiopulmonary complication including DC, CVA, or respiratory failure. I reviewed the [...] from large surveillance (more content not included)... [facility] 09-12-2023 [facility] Telephone (URR) MELANIE ENNIS ([id number]) 1995 F Date Time Provider Department 09/12/23 URSUL[facility] MCGINNIS [facility] During your visit today, we recorded the [...] Encounter Status:Closed by LYNDSAY ARANGO [facility] Telephone (URFHR) MELANIE ENNIS ([id number]) 1995 F Date Time Provider Department 08/28/23 URSULA MCGINNIS [facility] During your visit today, we recorded the following information about you: Roseann Scott 08/28/2023 2:03 PM Signed Left voice message [...] Obesity [E66.9] 10/08/2013 Encounter Status:Closed by ROSEANN SCOTT on 08/28/23 Normal [facility] Telephone Encounteron 2023 Physician Assistant Certified Authentication Interface Message Text Patient has not been seen by this specialist in more than 1 year. Please contact patient to schedule office visit. Thank you Normal [employer] MR KNEE RIGHT WO IV CONTRAST [...] RT 4V*on 04-21-2023 XR knee RT 4V* [facility] [employer] Other XR knee RT 4V* [facility] [employer] Other XR knee RT 4V* [address] [facility] [employer] Other XR knee RT 4V* [place] [address] No rt [employer] Other XR knee RT 4V* XRay Report [employer] Other XR knee RT 4V* Signed [employer] Other XR knee RT 4V* Patient: Melanie Ennis MR#: [id number] [employer] Other XR knee RT 4V* 8702 [employer] Other XR knee RT 4V* : 1995 Acct:[id number] [employer] Other XR knee RT 4V* Age/Sex: 28 / F ADM Date: 04/21/23 [employer] Other XR knee RT 4V* Loc: XDUCLY Room: Type: REG CLI [employer] Other XR knee RT 4V* Attending Dr: Maribel MO [employer] Other XR knee RT 4V* Copies to: CHELY Miranda [employer] Other XR knee RT 4V* Ordering Provider: CHELY Miranda [employer] Other XR knee RT 4V* Date of Service: 04/21/23 [employer] Other XR knee RT 4V* XR/XR knee RT 4V*: RIGHT KNEE PAIN [employer] Other XR knee RT 4V* RIGHT KNEE - 4 views [employer] Other XR knee RT 4V* COMPARISON: None [employer] Other XR knee RT 4V* CLINICAL DATA: Patient felt a pop at the right knee yesterday and the day before and has had pain at [employer] Other XR knee RT 4V* the knee since. [employer] Other XR knee RT 4V* AP, lateral and both oblique views were obtained. These no acute fracture or dislocation. There is [employer] Other XR knee RT 4V* minor squaring off of the articular margins at the posterior patella. There is a trace amount joint [employer] Other XR knee RT 4V* fluid. No focal soft tissue abnormalities are seen. [employer] Other XR knee RT 4V* XR/XR knee RT 4V* [employer] Other XR knee RT 4V* IMPRESSION: [employer] Other XR knee RT 4V* NO ACUTE BONY FINDINGS. [employer] Other XR knee RT 4V* Impression dictated by: Essie Rdz M.D.04/21/2023 12:14 PM [employer] Other XR knee RT 4V* Dictation Location: [place] [address] [employer] Other XR knee RT 4V* Transcribed By: CHRISSIE 04/21/23 1214 [employer] Other XR knee RT 4V* Dictated By: Essie Rdz MD 04/21/23 [facility] [employer] Other XR knee RT 4V* Signed By: [employer] Other XR knee RT 4V* 04/21/23 1214 [employer] Other CBC with Diffon 04-04-2023 Abs. Basophil 0.04 k/uL Normal 0.00-0.20 [facility] Comment on above: Performed By: #### SALLY Hayes CDP, CP, TROPI #### [facility] [address] [place] [address] Staffing Analyst: Michael Ordonez MD Abs.Imm.Granulocyte <0.03 Normal 0.00-0.30 [facility] Comment on above: Performed By: #### SALLY Hayes CDP, CP, TROPI #### [facility] [address] [place], [facility]83 Staffing Analyst: Michael Ordonez MD Abs.Neutrophil (Seg) 5.05 k/uL Normal 1.50-8.10 [facility] Comment on above: Performed By: #### M G, DIME, CDP, CP, TROPI #### [address] [place], [facility] Staffing Analyst: Michael Ordonez MD Basophils/100 WBC (Bld) 1 % Normal 0-2 [facility] Comment on above: Performed By: #### M G, DIME, CDP, CP, TROPI #### [address] [place], [facility] Staffing Analyst: Michael Ordonez MD Eosinophils (Bld) [#/Vol] 0.32 10*3/uL Normal 0.00-0.44 [facility] Comment on above: Performed By: #### M G, DIME, CDP, CP, TROPI #### [address] [place], [facility] Staffing Analyst: Michael Ordonez MD Eosinophils/100 WBC (Bld) 4 % Normal 1-4 [facility] Comment on above: Performed By: #### M G, DIME, CDP, CP, TROPI #### [address] [place], [facility]83 Staffing Analyst: Michael Ordonez MD Erythrocyte distribution width (RBC) [Ratio] 14.3 % Normal 11.8-14.4 [facility] Comment on above: Performed By: #### M G, DIME, CDP, CP, TROPI #### [address] [place], [facility]83 Staffing Analyst: Michael Ordonez MD Hematocrit (Bld) [Volume fraction] 36.1 % Low 36.3-47.1 [facility] Comment on above: Performed By: #### M G, DIME, CDP, CP, TROPI #### [facility] [address] [place], [place] [id number] Staffing Analyst: Michael Ordonez MD Hemoglobin (Bld) [Mass/Vol] 11.6 g/dL Low 11.9-15.1 [facility] Comment on above: Performed By: #### M G, DIME, CDP, CP, TROPI #### [facility] [address] [place], [place] [address] Staffing Analyst: Michael Ordonez MD Immature granulocytes/100 WBC (Bld) 0 % Normal 0 [facility] Comment on above: Performed By: #### M G, DIME, CDP, CP, TROPI #### [address] [place], [place] [address] Staffing Analyst: Michael Ordonez MD Lymphocytes (Bld) [#/Vol] 1.94 10*3/uL Normal 1.10-3.70 [facility] Comment on above: Performed By: #### M G, DIME, CDP, CP, TROPI #### [address] [place], [place] [address] Staffing Analyst: Michael Ordonez MD Lymphocytes/100 WBC (Bld) 25 % Normal 24-43 [facility] Comment on above: Performed By: #### M G, DIME, CDP, CP, TROPI #### [address] [place], [facility]83 Staffing Analyst: Michael Ordonez MD MCH (RBC) [Entitic mass] 27.6 pg Normal 25.2-33.5 [facility] Comment on above: Performed By: #### M G, DIME, CDP, CP, TROPI #### [facility] [address] [place], [facility]83 Staffing Analyst: Michael Ordonez MD MCHC (RBC) [Mass/Vol] 32.1 g/dL Normal 28.4-34.8 [facility] Comment on above: Performed By: #### M G, DIME, CDP, CP, TROPI #### [facility] [address] [place], [place] [address] Staffing Analyst: Michael Ordonez MD MCV (RBC) [Entitic vol] 86.0 fL Normal 82.6-102.9 [facility] Comment on above: Performed By: #### M G, DIME, CDP, CP, TROPI #### [facility] [address] [place], [facility]83 Staffing Analyst: Michael Ordonez MD Monocytes (Bld) [#/Vol] 0.43 10*3/uL Normal 0.10-1.20 [facility] Comment on above: Performed By: #### M G, DIME, CDP, CP, TROPI #### [address] [place], [place] [address] Staffing Analyst: Michael Ordonez MD Monocytes/100 WBC (Bld) 6 % Normal 3-12 [facility] Comment on above: Performed By: #### M G, DIME, CDP, CP, TROPI #### [address] [place], [facility]83 Staffing Analyst: Michael Ordonez MD Neutrophil (Seg) 64 % Normal 36-65 [facility] Comment on above: Performed By: #### M G, DIME, CDP, CP, TROPI #### [address] [place], [facility]83 Staffing Analyst: Michael Ordonez MD NRBC Automated 0.0 per 100 WBC Normal 0.0 [facility] Comment on above: Performed By: #### M G, DIME, CDP, CP, TROPI #### [address] [place], [place] 127[address]83 Staffing Analyst: Michael Ordonez MD Platelet mean volume (Bld) [Entitic vol] 9.7 fL Normal 8.1-13.5 [facility] Comment on above: Performed By: #### M G, DIME, CDP, CP, TROPI #### [facility] [address] [place], [place] [address]383 Staffing Analyst: Michael Ordonez MD Platelets (Bld) [#/Vol] 333 10*3/uL Normal 138-453 [facility] Comment on above: Performed By: #### M G, DIME, CDP, CP, TROPI #### [facility] [address] [place] [address] Staffing Analyst: Michael Ordonez MD RBC (Bld) [#/Vol] 4.20 10*6/uL Normal 3.95-5.11 [facility] Comment on above: Performed By: #### M G, DIME, CDP, CP, TROPI #### [address] [place], [place] [address] Staffing Analyst: Michael Ordonez MD WBC (Bld) [#/Vol] 7.8 10*3/uL Normal 3.5-11.3 [facility] Comment on above: Performed By: #### M G, DIME, CDP, CP, TROPI #### [address] [place], [place] 88[address]83 Staffing Analyst: Michael Ordonez MD Comp Metabolic Profon 2022 Albumin [Mass/Vol] 4.3 g/dL Normal 3.5-5.2 [facility] Comment on above: Performed By: #### M G, DIME, CDP, CP, TROPI #### [address] [place], [place] [id number] Staffing Analyst: Michael Ordonez MD Albumin/Glob Ratio 1.5 Normal 1.0-2.5 [facility] Comment on above: Performed By: #### M G, DIME, CDP, CP, TROPI #### [address] [place] 386[address]83 Staffing Analyst: Michael Ordonez MD Alkaline Phos 80 U/L Normal 35-104 [facility] Comment on above: Performed By: #### M G, DIME, CDP, CP, TROPI #### [facility] [address] [place], [place] 3768483 Staffing Analyst: Michael Ordonez MD ALT [Catalytic activity/Vol] 13 U/L Normal 5-33 [facility] Comment on above: Performed By: #### M G, DIME, CDP, CP, TROPI #### [facility] [address] [place], [place] 8556383 Staffing Analyst: Michael Ordonez MD Anion gap [Moles/Vol] 9 mmol/L Normal 9-17 [facility] Comment on above: Performed By: #### M G, DIME, CDP, CP, TROPI #### [facility] [address] [place], [place] [address]83 Staffing Analyst: Michael Ordonez MD AST [Catalytic activity/Vol] 12 U/L Normal <32 [facility] Comment on above: Performed By: #### M G, DIME, CDP, CP, TROPI #### [address] [place], [place] 368[address]83 Staffing Analyst: Michael Ordonez MD Bilirubin [Mass/Vol] 0.2 mg/dL Low 0.3-1.2 [facility] Comment on above: Performed By: #### M G, DIME, CDP, CP, TROPI #### [facility] [address] [place], [place] 1694283 Staffing Analyst: Michael Ordonez MD BUN/CRE Ratio 8 Low 9-20 [facility] Comment on above: Performed By: #### M G, DIME, CDP, CP, TROPI #### [facility] [address] [place] [address] Staffing Analyst: Michael Ordonez MD Calcium [Mass/Vol] 9.5 mg/dL Normal 8.6-10.4 [facility] Comment on above: Performed By: #### M G, DIME, CDP, CP, TROPI #### [facility] [address] [place] [address] Staffing Analyst: Michael Ordonez MD Chloride [Moles/Vol] 103 mmol/L Normal 98-107 [facility] Comment on above: Performed By: #### M G, DIME, CDP, CP, TROPI #### [facility] [address] [place] [address] Staffing Analyst: Michael Ordonez MD CO2 [Moles/Vol] 26 mmol/L Normal 20-31 [facility] Comment on above: Performed By: #### M G, DIME, CDP, CP, TROPI #### [facility] [address] [place] [address] Staffing Analyst: Michael Ordonez MD Creatinine [Mass/Vol] 0.6 mg/dL Normal 0.5-0.9 [facility] Comment on above: Performed By: #### M G, DIME, CDP, CP, TROPI #### [facility] [address] [place] [address] Staffing Analyst: Michael Ordonez MD GFR/1.73 sq M.predicted among non-blacks MDRD (S/P/Bld) [Vol rate/Area] mL/min/{1.73_m2} Normal >60 [facility] Comment on above: Result Comment: These results [...] M G, DIME, CDP, CP, TROPI #### [facility] [address] [place], [place] [address]18283 Staffing Analyst: Michael Ordonez MD Glucose [Mass/Vol] 96 mg/dL Normal 70-99 [facility] Comment on above: Performed By: #### M G, DIME, CDP, CP, TROPI #### [facility] [address] [place], [place] 5149383 Staffing Analyst: Michael Ordonez MD Potassium [Moles/Vol] 4.4 mmol/L Normal 3.7-5.3 [facility] Comment on above: Performed By: #### M G, DIME, CDP, CP, TROPI #### [address] [place], [place] 179[address]83 Staffing Analyst: Michael Ordonez MD Protein [Mass/Vol] 7.1 g/dL Normal 6.4-8.3 [facility] Comment on above: Performed By: #### M G, DIME, CDP, CP, TROPI #### [address] [place], [place] 2840783 Staffing Analyst: Michael Ordonez MD Sodium [Moles/Vol] 138 mmol/L Normal 135-144 [facility] Comment on above: Performed By: #### M G, DIME, CDP, CP, TROPI #### [facility] [address] [place] [address] [place] [place], [place] 801[address]83 Staffing Analyst: Michael Ordonez MD Urea nitrogen [Mass/Vol] 5 mg/dL Low 6-20 [facility] Comment on above: Performed By: #### M G, DIME, CDP, CP, TROPI #### [facility] [address] [place], [place] [id number] Staffing Analyst: Michael Ordonez MD D-Dimer Teston 04-04-2023 D-Dimer Test 0.37 ug/mL FEU Normal 0.00-0.59 [facility] Comment on above: Result Comment: When [...] patients with distal DVT. Performed By: #### SALLY Hayes CDP, CP, TROPI #### [facility] [address] [place] [address] [place] [address] Staffing Analyst: Michael Ordonez MD Magnesiumon 04-04-2023 Magnesium [Mass/Vol] 1.8 mg/dL Normal 1.6-2.6 [facility] Comment on above: Performed By: #### SALLY Hayes CDP, CP, TROPI #### [facility] [address] [place] [address] Staffing Analyst: Michael Ordonez MD [id number] 04-04-2023 SARS-CoV-2 (COVID-19) RNA MARY+probe Ql (Unsp spec) Not detected Normal [facility] Comment on above: Result Comment: Rapid [...] management decisions. Fact sheet for Healthcare Providers: https://www.fda.gov/media/808069/download Fact sheet for Patients: https://www.fda.gov/media/831179/download Methodology: Isothermal Nucleic Acid Amplification Performed By: #### C OVRB #### [address] [place] [address] Staffing Analyst: Michael Ordonez MD Thyroid Stim. Horm.on 2022 Thyroid Stim. Horm. 0.88 uIU/mL Normal 0.30-5.00 [facility] Comment on above: Performed By: #### T SH #### [address] [place] [address] Staffing Analyst: Michael Ordonez MD Troponinon 04-04-2023 Troponin, High Sens 6 ng/L Normal 0-14 [facility] Comment on above: Result Comment: High Sensitivity Troponin values cannot be compared with other Troponin methodologies. Performed By: #### M G, DIME, CDP, CP, TROPI #### [address] [place] [address] Staffing Analyst: Michael Ordonez MD Urinalysis, Routineon 2022 Bilirubin, SemiQt,Ur Negative Normal NEG [facility] Comment on above: Performed By: #### U MICAO, UA #### [address] [place] [address] Staffing Analyst: Michael Ordonez MD Blood, Urine 3+ Abnormal NEG [facility] Comment on above: Performed By: #### U MICAO, UA #### [facility] [address] [place], [place] [id number] Staffing Analyst: Michael Ordonez MD Clarity (U) Clear Normal CLEAR [facility] Comment on above: Performed By: #### U MICAO, UA #### [facility] [address] [place], [place] 279[address]183 Staffing Analyst: Michael Ordonez MD Color (U) Yellow Normal YEL [facility] Comment on above: Performed By: #### U MICAO, UA #### [facility] [address] [place], [place] 0598183 Staffing Analyst: Michael Ordonez MD Glucose Ql (U) Negative Normal NEG [facility] Comment on above: Performed By: #### U MICAO, UA #### [facility] [address] [place], [place] [id number] Staffing Analyst: Michael Ordonez MD Ketones Ql (U) Negative Normal NEG [facility] Comment on above: Performed By: #### U MICAO, UA #### [facility] [address] [place] [address] Dr[address] [place], [place] 1604583 Staffing Analyst: Michael Ordonez MD Leukocyte esterase Test strip Ql (U) Negative Normal NEG [facility] Comment on above: Performed By: #### U MICAO, UA #### [facility] [address] [place], [place] 3074883 Staffing Analyst: Michael Ordonez MD Nitrite,Ur Negative Normal [facility] Comment on above: Performed By: #### U MICAO, UA #### [facility] [address] [place], [place] [address]182183 Staffing Analyst: Michael Ordonez MD PH,Ur 7.0 Normal 5.0-9.0 [facility] Comment on above: Performed By: #### U MICAO, UA #### [facility] [address] [place], [place] [address] Staffing Analyst: Michael Ordonez MD Protein Ql (U) Negative Normal NEG [facility] Comment on above: Performed By: #### U MICAO, UA #### [facility] [address] [place], [place] 3052083 Staffing Analyst: Michael Ordonez MD Spec. [place],Ur 1.010 Normal 1.010-1.020 [facility] Comment on above: Performed By: #### U MICAO, UA #### [facility] [address] [place] [address] [place] [place], [place] 5612383 Staffing Analyst: Michael Ordonez MD Urobilinogen,Ur Normal Normal 0.0-1.0 [facility] Comment on above: Performed By: #### U EMILIEO, UA #### [address] [place] [address] Staffing Analyst: Michael Ordonez MD Urinalysis,Microon 3 Bacteria TRACE Abnormal NONE [facility] Comment on above: Performed By: #### U MICAO, UA #### [address] [place], [place] 328[address]83 Staffing Analyst: Michael Ordonez MD Epithelial cells LM Ql (Urine sed) 0 TO 2 Normal 0-25 [facility] Comment on above: Performed By: #### U MICAO, UA #### [facility] [address] [place] [address] [place] [place], [place] [id number] Staffing Analyst: Michael Ordonez MD Urine RBC's 5 TO 10 Normal 0-2 [facility] Comment on above: Performed By: #### U MICAO, UA #### [facility] [address] [place] [address] [place] [place], [place] [id number] Staffing Analyst: Michael Ordonez MD Urine WBC's None Normal 0-5 [facility] Comment on above: Performed By: #### U MICAO, UA #### [facility] [address] [place] [address] Staffing Analyst: Michael Ordonez MD XR CHEST PORTABLEon 04-04-20 [...] Rudy Jacobo MD 04/04/23 Final result Normal [facility] CBC AUTO DIFFon 11-18-2022 BASO # 0.1 103/ul Normal 0.0-0.1 [facility] Comment on above: Performed By: #### C BC #### [facility] [address] [place] [address] Dr. Laura Duarte Basophils/100 WBC (Bld) 0.8 % Normal 0.2-2.0 [facility] Comment on above: Performed By: #### C BC #### [facility] [address] [place] [address] Dr. Laura Duarte EO # 1.0 103/ul Critically high 0.0-0.7 [facility] Comment on above: Performed By: #### C BC #### [facility] [address] [place] [address] [address] Laura Duarte Eosinophils/100 WBC (Bld) 11.5 % Critically high 0.9-7.0 [facility] Comment on above: Performed By: #### C BC #### [facility] [address] [place] [address] Dr. Laura Duarte Erythrocyte distribution width (RBC) [Ratio] 13.2 % Normal 11.0-15.0 [facility] Comment on above: Performed By: #### C BC #### [facility] [address] [place] [address] Dr. Laura Duarte Hematocrit (Bld) [Volume fraction] 37.6 % Normal 36.0-48.0 [facility] Comment on above: Performed By: #### C BC #### [facility] [address] [place] [address] Dr. Laura Duarte Hemoglobin (Bld) [Mass/Vol] 12.3 g/dL Normal 12.0-16.0 [facility] Comment on above: Performed By: #### C BC #### [facility] [address] [place] [address] Dr. Laura Duarte IG # 0.02 10e3/ul Normal 0.00-0.03 [facility] Comment on above: Performed By: #### C BC #### [facility] [address] [place] [address] Dr. Laura Duarte IG % 0.2 % Normal 0.0-0.5 [facility] Comment on above: Performed By: #### C BC #### [facility] [address] [place] [address] Dr. Laura Duarte LYMPH # 2.7 103/ul Normal 1.2-3.8 [facility] Comment on above: Performed By: #### C BC #### [facility] [address] [place] [address] Dr. Laura Duarte Lymphocytes/100 WBC (Bld) 30.3 % Normal 20.5-60.0 [facility] Comment on above: Performed By: #### C BC #### [facility] [address] [place] [address] Dr. Laura Duarte MANUAL DIFF REQ NO Normal [facility] Comment on above: Performed By: #### C BC #### [facility] [address] [place] [address] Dr. Laura Duarte MCH (RBC) [Entitic mass] 27.9 pg Normal 26.7-34.0 [facility] Comment on above: Performed By: #### C BC #### [facility] [address] [place] [address] Dr. Laura Duarte MCHC (RBC) [Mass/Vol] 32.7 g/dL Normal 29.9-35.2 [facility] Comment on above: Performed By: #### C BC #### [facility] [address] [address] [address] Laura Duarte MCV (RBC) [Entitic vol] 85.3 fL Normal 81.0-99.0 [facility] Comment on above: Performed By: #### C BC #### [facility] [address] [address] [address] Laura Duarte MONO # 0.5 103/ul Normal 0.3-0.8 [facility] Comment on above: Performed By: #### C BC #### [facility] [address] [address] [address] Laura Duarte Monocytes/100 WBC (Bld) 5.0 % Normal 1.7-12.0 [facility] Comment on above: Performed By: #### C BC #### [facility] [address] [place] [address] Dr. Laura Duarte NEUT # 4.7 103/ul Normal 1.4-6.5 [facility] Comment on above: Performed By: #### C BC #### [facility] [address] [place] [address] Dr. Laura Duarte Neutrophils/100 WBC (Bld) 52.2 % Normal 43.0-75.0 [facility] Comment on above: Performed By: #### C BC #### [facility] [address] [address] [address] Laura Duarte Platelet mean volume (Bld) [Entitic vol] 9.9 fL Normal 9.5-13.5 [facility] Comment on above: Performed By: #### C BC #### [facility] [address] [address] [address] Laura Duarte PLT 363 103/ul Normal 150-450 [facility] Comment on above: Performed By: #### C BC #### [facility] [address] [address] [address] Laura Duarte RBC 4.41 106/ul Normal 4.20-5.40 [facility] Comment on above: Performed By: #### C BC #### [facility] [address] [place] [address] Dr. Laura Duarte WBC 9.0 103/ul Normal 4.0-11.0 [facility] Comment on above: Performed By: #### C BC #### [facility] [address] [place] [address] Dr. Laura Duarte PROF 14(COMP METB)on 023 Albumin [Mass/Vol] 3.7 g/dL Normal 3.4-5.0 [facility] Comment on above: Performed By: #### P TT, PT #### [facility] [address] [place] [address] Dr. Laura Duarte Albumin/Globulin [Mass ratio] 1.0 {ratio} Normal [facility] Comment on above: Performed By: #### P TT, PT #### [facility] [address] [place] [address] Dr. Laura Duarte ALP [Catalytic activity/Vol] 89 U/L Normal 46-116 [facility] Comment on above: Performed By: #### P TT, PT #### [facility] [address] [place] [address] Dr. Laura Duarte ALT [Catalytic activity/Vol] 22 U/L Normal 14-59 [facility] Comment on above: Performed By: #### P TT, PT #### [facility] [address] [place] [address] Dr. Laura Duarte Anion gap [Moles/Vol] 13.8 mmol/L Normal [facility] Comment on above: Performed By: #### P TT, PT #### [facility] [address] [place] [address] Dr. Laura Duarte AST [Catalytic activity/Vol] 13 U/L Critically low 15-37 [facility] Comment on above: Performed By: #### P TT, PT #### [facility] [address] [place] [address] Dr. Laura Duarte Bilirubin [Mass/Vol] 0.2 mg/dL Normal 0.2-1.0 [facility] Comment on above: Performed By: #### P TT, PT #### [facility] [address] [address] [address] Laura Duarte Calcium [Mass/Vol] 9.0 mg/dL Normal 8.5-10.1 [facility] Comment on above: Performed By: #### P TT, PT #### [facility] [address] [address] [address] Laura uDarte Chloride [Moles/Vol] 106 mmol/L Normal 98-107 [facility] Comment on above: Performed By: #### P TT, PT #### [facility] [address] [place] [address] Dr. Laura Duarte CO2 [Moles/Vol] 27.3 mmol/L Normal 21.0-32.0 [facility] Comment on above: Performed By: #### P TT, PT #### [facility] [address] [place] [address] Dr. Laura Duarte Creatinine [Mass/Vol] 0.77 mg/dL Normal 0.55-1.02 [facility] Comment on above: Performed By: #### P TT, PT #### [facility] [address] [place] [address] Dr. Laura Duarte EGFR-AF DANISH >60 Normal >=60 [facility] Comment on above: Performed By: #### P TT, PT #### [facility] [address] [place] [address] Dr. Laura Duarte EGFR-NON AF DANISH >60 Normal >=60 [facility] Comment on above: Performed By: #### P TT, PT #### [facility] [address] [address] [address] Laura Duarte Globulin (S) [Mass/Vol] 3.8 g/dL Normal [facility] Comment on above: Performed By: #### P TT, PT #### [facility] [address] [place] [address] Dr. Laura Duarte Glucose [Mass/Vol] 95 mg/dL Normal 74-106 [facility] Comment on above: Performed By: #### P TT, PT #### [facility] [address] [address] [address] Laura Duarte Potassium [Moles/Vol] 4.1 mmol/L Normal 3.5-5.1 [facility] Comment on above: Performed By: #### P TT, PT #### [facility] [address] [place] [address] Dr. Laura Duarte Protein [Mass/Vol] 7.5 g/dL Normal 6.4-8.2 [facility] Comment on above: Performed By: #### P TT, PT #### [facility] [address] [place] [address] Dr. Laura Duarte Sodium [Moles/Vol] 143 mmol/L Normal 136-145 [facility] Comment on above: Performed By: #### P TT, PT #### [facility] [address] [place] [address] Dr. Laura Duarte Urea nitrogen [Mass/Vol] 6.0 mg/dL Critically low 7.0-18.0 [facility] Comment on above: Performed By: #### P TT, PT #### [facility] [address] [place] [address] Dr. Laura Duarte Urea nitrogen/Creatinine [Mass ratio] 7.8 mg/mg Normal [facility] Comment on above: Performed By: #### P TT, PT #### [facility] [address] [place] [address] Dr. Laura Duarte PROTIMEon 11-18-2022 INR Coag (PPP) [Relative time] {INR} Normal [facility] Comment on above: Performed By: #### P TT, PT #### [facility] [address] [place] [address] Dr. Laura Duarte INR GUIDELINES SEE BELOW Normal [facility] Comment on above: Result Comment: [place] RED INR: 2.0 - 3.0 CONDITIONS NOT LISTED BELOW 2.5 - 3.5 FOR PROSTHETIC HEART VALVE REPLACEMENT 2.5 - 3.5 RECURRENT THROMBOSIS Performed By: #### P TT, PT #### [facility] [address] [place] [address] Dr. Laura Duarte PT Coag (PPP) [Time] 9.8 s Normal 9.0-11.6 [facility] Comment on above: Performed By: #### P TT, PT #### [facility] [address] [place] [address] Dr. Laura Duarte PTTon 11-18-2022 aPTT Coag (Bld) [Time] 34.4 s Normal 22.3-36.2 [facility] Comment on above: Performed By: #### P TT, PT #### [facility] [address] [place] [address] Dr. Laura Duarte XR CHEST 2 Von [...] by: LEONARD CERVANTES Date: 2022-11-18 12:35 Normal [facility] CBC AUTO DIFFon 03-30-2022 BASO # 0.1 103/ul Normal 0.0-0.1 [facility] Comment on above: Performed By: #### P TT, PT #### [facility] [address] [place] [address] Dr. Laura Duarte Basophils/100 WBC (Bld) 0.6 % Normal 0.2-2.0 [facility] Comment on above: Performed By: #### P TT, PT #### [facility] [address] [place] [address] Dr. Laura Duarte EO # 0.7 103/ul Normal 0.0-0.7 [facility] Comment on above: Performed By: #### P TT, PT #### [facility] [address] [place] [address] Dr. Laura Duarte Eosinophils/100 WBC (Bld) 7.8 % Critically high 0.9-7.0 [facility] Comment on above: Performed By: #### P TT, PT #### [facility] [address] [place] [address] Dr. Laura Duatre Erythrocyte distribution width (RBC) [Ratio] 14.0 % Normal 11.0-15.0 [facility] Comment on above: Performed By: #### P TT, PT #### [facility] [address] [place] [address] Dr. Laura Duarte Hematocrit (Bld) [Volume fraction] 37.8 % Normal 36.0-48.0 [facility] Comment on above: Performed By: #### P TT, PT #### [facility] [address] [place] [address] Dr. Laura Duarte Hemoglobin (Bld) [Mass/Vol] 12.2 g/dL Normal 12.0-16.0 [facility] Comment on above: Performed By: #### P TT, PT #### [facility] [address] [place] [address] Dr. Laura Duarte IG # 0.02 10e3/ul Normal 0.00-0.03 [facility] Comment on above: Performed By: #### P TT, PT #### [facility] [address] [place] [address] Dr. Laura Duarte IG % 0.2 % Normal 0.0-0.5 [facility] Comment on above: Performed By: #### P TT, PT #### [facility] [address] [place] [address] Dr. Laura Duarte LYMPH # 2.4 103/ul Normal 1.2-3.8 [facility] Comment on above: Performed By: #### P TT, PT #### [facility] [address] [place] [address] Dr. Laura Duarte Lymphocytes/100 WBC (Bld) 26.2 % Normal 20.5-60.0 [facility] Comment on above: Performed By: #### P TT, PT #### [facility] [address] [place] [address] Dr. Laura Duarte MANUAL DIFF REQ NO Normal [facility] Comment on above: Performed By: #### P TT, PT #### [facility] [address] [place] [address] Dr. Laura Duarte MCH (RBC) [Entitic mass] 27.6 pg Normal 26.7-34.0 [facility] Comment on above: Performed By: #### P TT, PT #### [facility] [address] [place] [address] Dr. Laura Duarte MCHC (RBC) [Mass/Vol] 32.3 g/dL Normal 29.9-35.2 [facility] Comment on above: Performed By: #### P TT, PT #### [facility] [address] [place] [address] Dr. Laura Duarte MCV (RBC) [Entitic vol] 85.5 fL Normal 81.0-99.0 [facility] Comment on above: Performed By: #### P TT, PT #### [facility] [address] [place] [address] Dr. Laura Duarte MONO # 0.6 103/ul Normal 0.3-0.8 [facility] Comment on above: Performed By: #### P TT, PT #### [facility] [address] [place] [address] Dr. Laura Duarte Monocytes/100 WBC (Bld) 6.5 % Normal 1.7-12.0 [facility] Comment on above: Performed By: #### P TT, PT #### [facility] [address] [place] [address] Dr. Laura Duarte NEUT # 5.4 103/ul Normal 1.4-6.5 [facility] Comment on above: Performed By: #### P TT, PT #### [facility] [address] [place] [address] Dr. Laura Duarte Neutrophils/100 WBC (Bld) 58.7 % Normal 43.0-75.0 [facility] Comment on above: Performed By: #### P TT, PT #### [facility] [address] [place] [address] Dr. Laura Duarte Platelet mean volume (Bld) [Entitic vol] 11.6 fL Normal 9.5-13.5 [facility] Comment on above: Performed By: #### P TT, PT #### [facility] [address] [address] [address] Laura Duarte PLT 321 103/ul Normal 150-450 [facility] Comment on above: Performed By: #### P TT, PT #### [facility] [address] [address] [address] Laura Duarte RBC 4.42 106/ul Normal 4.20-5.40 [facility] Comment on above: Performed By: #### P TT, PT #### [facility] [address] [address] [address] Laura Duarte WBC 9.3 103/ul Normal 4.0-11.0 [facility] Comment on above: Performed By: #### P TT, PT #### [facility] [address] [place] [address] Dr. Laura Duarte GLYCOHEMOGLOBIN A1Con 2021 ADA RECOMMENDATION SEE BELOW Normal [facility] Comment on above: Result Comment: ADA RECOMMENDED LIMIT 4.0 - 6.0 ADA THERAPEUTIC TARGET < 7.0 ACTION SUGGESTED > 7.0 Performed By: #### A 1C #### [facility] [address] [place] [address] Dr. Laura Duarte Glucose [Mass/Vol] 111 mg/dL Normal [facility] Comment on above: Performed By: #### A 1C #### [facility] [address] [place] [address] Dr. Laura Duarte HbA1c (Bld) [Mass fraction] 5.5 % Normal 4.5-6.2 [facility] Comment on above: Performed By: #### A 1C #### [facility] [address] [place] [address] Dr. Laura Duarte LIPID PROFILEon 03-30-2022 CHOL-HDL RATIO NORM SEE BELOW Normal [facility] Comment on above: Result Comment: 3.3 - 4.4 LOW RISK 4.4 - 7.1 AVERAGE RISK 7.1 - 11.0 MODERATE RISK >11.0 HIGH RISK Performed By: #### T SH, LIVER, LIPID, BMP #### [facility] [address] [address] [address] Laura Duarte Cholesterol [Mass/Vol] 174 mg/dL Normal <=200 [facility] Comment on above: Performed By: #### T SH, LIVER, LIPID, BMP #### [facility] [address] [address] [address] Laura Duarte Cholesterol in HDL [Mass/Vol] 49 mg/dL Normal 40-60 [facility] Comment on above: Performed By: #### T SH, LIVER, LIPID, BMP #### [facility] [address] [address] [address] Laura Duarte Cholesterol in LDL [Mass/Vol] 113.2 mg/dL Normal [facility] Comment on above: Performed By: #### T SH, LIVER, LIPID, BMP #### [facility] [address] [address] [address] Laura Duarte Cholesterol.total/Chol esterol in HDL [Mass ratio] 3.6 {ratio} Normal [facility] Comment on above: Performed By: #### T SH, LIVER, LIPID, BMP #### [facility] [address] [address] [address] Laura Duarte HDL NORMAL > or = 60 mg/dl - LOW CARDIOVASCULAR RISK <40 mg/dl - HIGH CARDIOVASCULAR RISK Normal [facility] Comment on above: Performed By: #### T SH, LIVER, LIPID, BMP #### [facility] [address] [address] [address] Laura Duarte LDL CALC NORMAL SEE BELOW Normal [facility] Comment on above: Result Comment: <100 mg/dl OPTIMAL 100 - 129 mg/dl NEAR OR ABOVE OPTIMAL 130 - 159 mg/dl BORDERLINE HIGH 160 - 189 mg/dl HIGH >190 mg/dl VERY HIGH Performed By: #### T SH, LIVER, LIPID, BMP #### [facility] [address] [address] [address] Laura Duarte Triglyceride [Mass/Vol] 59 mg/dL Normal <=150 [facility] Comment on above: Performed By: #### T SH, LIVER, LIPID, BMP #### [facility] [address] [address] [address] Laura Duarte VLDL CALC 11.8 mg/dL Normal [facility] Comment on above: Performed By: #### T SH, LIVER, LIPID, BMP #### [facility] [address] [address] [address] Laura Duarte LIVER PROFILEon 03-30-2022 Albumin [Mass/Vol] 3.6 g/dL Normal 3.4-5.0 [facility] Comment on above: Performed By: #### T SH, LIVER, LIPID, BMP #### [facility] [address] [address] [address] Laura Duarte Albumin/Globulin [Mass ratio] 1.0 {ratio} Normal [facility] Comment on above: Performed By: #### T SH, LIVER, LIPID, BMP #### [facility] [address] [address] [address] Laura Duarte ALP [Catalytic activity/Vol] 76 U/L Normal 46-116 [facility] Comment on above: Performed By: #### T SH, LIVER, LIPID, BMP #### [facility] [address] [place] [address] Dr. Laura Duarte ALT [Catalytic activity/Vol] 19 U/L Normal 14-59 [facility] Comment on above: Performed By: #### T SH, LIVER, LIPID, BMP #### [facility] [address] [place] [address] Dr. Laura Duarte AST [Catalytic activity/Vol] 11 U/L Critically low 15-37 [facility] Comment on above: Performed By: #### T SH, LIVER, LIPID, BMP #### [facility] [address] [address] [address] Laura Duarte BILI, CONJUGATED 0.1 mg/dL Normal 0.0-0.2 [facility] Comment on above: Performed By: #### T SH, LIVER, LIPID, BMP #### [facility] [address] [address] [address] Laura Duarte Bilirubin [Mass/Vol] 0.3 mg/dL Normal 0.2-1.0 [facility] Comment on above: Performed By: #### T SH, LIVER, LIPID, BMP #### [facility] [address] [place] [address] Dr. Laura Duarte Globulin (S) [Mass/Vol] 3.5 g/dL Normal [facility] Comment on above: Performed By: #### T SH, LIVER, LIPID, BMP #### [facility] [address] [place] [address] Dr. Laura Duarte Protein [Mass/Vol] 7.1 g/dL Normal 6.4-8.2 [facility] Comment on above: Performed By: #### T SH, LIVER, LIPID, BMP #### [facility] [address] [place] [address] Dr. Laura Duarte PROF CHEM 8 (BAS METB)on Anion gap [Moles/Vol] 12.4 mmol/L Normal [facility] Comment on above: Performed By: #### T SH, LIVER, LIPID, BMP #### [facility] [address] [place] [address] Dr. Laura Duarte Calcium [Mass/Vol] 9.1 mg/dL Normal 8.5-10.1 [facility] Comment on above: Performed By: #### T SH, LIVER, LIPID, BMP #### [facility] [address] [place] [address] Dr. Laura Duarte Chloride [Moles/Vol] 106 mmol/L Normal 98-107 [facility] Comment on above: Performed By: #### T SH, LIVER, LIPID, BMP #### [facility] [address] [place] [address] Dr. Laura Duarte CO2 [Moles/Vol] 24.5 mmol/L Normal 21.0-32.0 [facility] Comment on above: Performed By: #### T SH, LIVER, LIPID, BMP #### [facility] [address] [place] [address] Dr. Laura Duarte Creatinine [Mass/Vol] 0.70 mg/dL Normal 0.55-1.02 [facility] Comment on above: Performed By: #### T SH, LIVER, LIPID, BMP #### [facility] [address] [address] [address] Laura Duarte EGFR-AF DANISH >60 Normal >=60 [facility] Comment on above: Performed By: #### T SH, LIVER, LIPID, BMP #### [facility] [address] [address] [address] Laura Duarte EGFR-NON AF DANISH >60 Normal >=60 [facility] Comment on above: Performed By: #### T SH, LIVER, LIPID, BMP #### [facility] [address] [address] [address] Laura Duarte Glucose [Mass/Vol] 94 mg/dL Normal 74-106 [facility] Comment on above: Performed By: #### T SH, LIVER, LIPID, BMP #### [facility] [address] [address] [address] Laura Duarte Potassium [Moles/Vol] 3.9 mmol/L Normal 3.5-5.1 [facility] Comment on above: Performed By: #### T SH, LIVER, LIPID, BMP #### [facility] [address] [address] [address] Laura Duarte Sodium [Moles/Vol] 139 mmol/L Normal 136-145 [facility] Comment on above: Performed By: #### T SH, LIVER, LIPID, BMP #### [facility] [address] [address] [address] Laura Duarte Urea nitrogen [Mass/Vol] 7.0 mg/dL Normal 7.0-18.0 [facility] Comment on above: Performed By: #### T SH, LIVER, LIPID, BMP #### [facility] [address] [address] [address] Laura Duarte Urea nitrogen/Creatinine [Mass ratio] 10.0 mg/mg Normal [facility] Comment on above: Performed By: #### T SH, LIVER, LIPID, BMP #### [facility] [address] [address] [address] Laura Duarte TSHon 03-30-2022 TSH 1.039 uIU/mL Normal 0.358-3.740 [facility] Comment on above: Performed By: #### T SH, LIVER, LIPID, BMP #### [facility] [address] [place], [place] [address] Dr. Laura Duarte Covid-19 PCR (CVDTB)on 02-07 SARS-CoV-2 (COVID-19) RNA MARY+probe Ql (Unsp spec) Not detected Normal NOT DETECTED [facility] Comment on above: Result Comment: When [...] for this test is supported by the [place] of Health and Human Service's declaration that [...] Performed By: #### P TT, PT #### [facility] [address] [place] [address] [id number] [address] Laura Duarte XR CHEST 1 Von [...] MATEUS BUTCHER Date: 2022-02-24 23:55 Normal [facility] COVID-19, RapidOrdered By: Sonu Srinivasan on 02-13-2021 SARS-CoV-2 (COVID-19) RNA MARY+probe Ql (Unsp spec) Not detected Not Detected [facility] Phone: Comment on above: Rapid NAAT: The [...] management decisions. Fact sheet for Healthcare Providers: https://www.fda.gov/media/468892/download Fact sheet for Patients: https://www.fda.gov/media/370218/download Methodology: Isothermal Nucleic Acid Amplification Specimen Description .NASOPHARYNGEAL SWAB [facility] Phone: [facility] Phone: CBC Auto DifferentialOrdered By: Avinash Kee on 10-25-2020 Absolute Eos # <0.03 [facility] Work Phone: Absolute Immature Granulocyte 0.04 [place] Work Phone: Absolute Lymph # 2.18 [facility] [place] Work Phone: Absolute [place] # 0.75 [facility] Work Phone: Basophils (Bld) [#/Vol] 10*3/uL [facility] Phone: Basophils/100 WBC (Bld) 0 % 0 - 2 % [facility] Phone: Differential Type NOT REPORTED [facility] Phone: Eosinophils/100 WBC (Bld) 0 % Low 1 - 4 % [facility] Phone: Hematocrit (Bld) [Volume fraction] 43.1 % 36.3 - 47.1 % [facility] Phone: Hemoglobin.gastrointes tinal spec 1 Ql (Stl) 13.9 g/dL 11.9 - 15.1 g/dL [facility] Phone: Immature granulocytes/100 WBC (Bld) 1 % High 0 [facility] Phone: Interpretation and review of laboratory results Abnormal [facility] Phone: Lymphocytes/100 WBC (Bld) 29 % 24 - 43 % [facility] Phone: MCH (RBC) [Entitic mass] 27.4 pg 25.2 - 33.5 pg [facility] Phone: MCHC (RBC) [Mass/Vol] 32.3 g/dL 28.4 - 34.8 g/dL [facility] Phone: MCV (RBC) [Entitic vol] 84.8 fL 82.6 - 102.9 fL [facility] Phone: Monocytes/100 WBC (Bld) 10 % 3 - 12 % [facility] Phone: NRBC Automated 0.0 0.0 per 100 WBC [facility] Phone: Platelet distribution width (Bld) [Ratio] 13.3 % 11.8 - 14.4 % [facility] Phone: Platelet Estimate NOT REPORTED [facility] Phone: Platelet mean volume (Bld) [Entitic vol] 9.7 fL 8.1 - 13.5 fL [facility] Phone: Platelets (Bld) [#/Vol] 282 10*3/uL [facility] Phone: RBC (Bld) [#/Vol] 5.08 10*6/uL 3.95 - 5.1 1 m/uL [facility] Phone: RBC (Bld) [#/Vol] NOT REPORTED [facility] Phone: Segmented neutrophils/100 WBC (Bld) 60 % 36 - 65 % [facility] Work Phone: Segs Absolute 4.53 [employer] Work Phone: WBC (Bld) [#/Vol] 7.5 10*3/uL [facility] Work Phone: WBC (Bld) [#/Vol] NOT REPORTED [facility] Work Phone: Comprehensive Metabolic Pane l w/ Reflex to MGOrdered By: Avinash Kee on 10-25-2020 Albumin [Mass/Vol] 3.9 g/dL 3.5 - 5.2 g/dL [facility] Phone: Albumin/Globulin [Mass ratio] 1.2 {ratio} [facility] Phone: ALP (Bld) [Catalytic activity/Vol] 78 U/L 35 - 104 U/L [facility] Phone: ALT [Catalytic activity/Vol] 34 U/L High 5 - 33 U/L [facility] Phone: Anion gap [Moles/Vol] 13 mmol/L 9 - 17 mmol/L [facility] Phone: AST [Catalytic activity/Vol] 35 U/L High <32 [facility] Phone: Bilirubin [Mass/Vol] 0.23 mg/dL Low 0.3 - 1 .2 mg/dL [facility] Phone: Calcium [Mass/Vol] 9.2 mg/dL 8.6 - 10. 4 mg/dL [facility] Phone: Chloride [Moles/Vol] 99 mmol/L 98 - 10 7 mmol/L [facility] Phone: CO2 [Moles/Vol] 24 mmol/L 20 - 31 mmol/L [facility] Work Phone: Creatinine [Mass/Vol] 0.73 mg/dL 0.50 - 0.90 mg/dL [facility] Phone: Free PSA/Total PSA [Mass fraction] 7.1 g/dL 6.4 - 8.3 g/dL [facility] Phone: GFR >60 >60 mL/min [employer] [employer] Phone: GFR Non- >60 >60 mL/min [facility] Phone: Glucose [Mass/Vol] 119 mg/dL High 70 - 99 mg/dL [facility] Phone: Interpretation and review of laboratory results Abnormal [facility] Phone: Potassium [Moles/Vol] 3.3 mmol/L Low 3.7 - 5.3 mmol/L [facility] Phone: Sodium [Moles/Vol] 136 mmol/L 135 - 144 mmol/L [facility] Phone: Urea nitrogen (BldV) [Mass/Vol] 11 mg/dL 6 - 20 mg/dL [facility] Phone: Urea nitrogen/Creatinine (Bld) [Mass ratio] 15 [facility] Phone: Laboratory - Chemistry and C hemistry - challengeOrdered By: Avinash Kee on 10-25-2020 GFR/1.73 sq M.predicted MDRD (S/P/Bld) [Vol rate/Area] [facility] Phone: Comment on above: Average GFR for 20-2 9 years old: 116 mL/min/1.73sq m Chronic Kidney Disease: <60 mL/min/1.73sq m Kidney failure: <15 mL/min/1.73sq m eGFR calculated using average adult body mass. Additional eGFR calculator available at: http://www.[employer]/multiple_crcl_2011.htm Stage 1: Some kidney damage normal GFR Stage 2: Mild kidney damage GFR 60-89 Stage 3: Moderate kidney damage GFR 30-59 Stage 4: Severe kidney damage GFR 15-29 Stage 5: Severe kidney damage GFR <15 ESRD - chronic treatment by dialysis or transplant COVID-19, Rapidon 10-20-2020 Interpretation and review of laboratory results Abnormal [facility] Phone: SARS-CoV-2, Rapid DETECTED Abnormal Not Detected [facility] Phone: Comment on above: Rapid NAAT: The [...] this assay. Fact sheet for Healthcare Providers: https://www.fda.gov/media/165232/download Fact sheet for Patients: https://www.fda.gov/media/205188/download Methodology: Isothermal Nucleic Acid Amplification Results reported to the appropriate Health Department Specimen Description .NASOPHARYNGEAL SWAB [facility] Phone: XR CHEST PORTABLEon 10-20-19 No acute intrathoracic pathology. [facility] Phone: EXAMINATION: ONE XRAY VIEW OF THE CHEST 10/19/2020 11:23 pm COMPARISON: 06/10/2015 HISTORY: ORDERING SYSTEM PROVIDED HISTORY: shortness of breath TECHNOLOGIST PROVIDED HISTORY: shortness of breath FINDINGS: The cardiomediastinal silhouette and hilar contours are normal. The lungs are clear with no focal consolidation, pleural effusion or pneumothorax. The overlying soft tissue and osseous structures appear unremarkable. [facility] Phone: Loyd, pn Incoming Radiant Results From [employer] - 10/19/2020 11:48 PM EDT EXAMINATION: ONE [...] appear unremarkable. IMPRESSION: No acute intrathoracic pathology. [facility] Work Phone: Vital Signs Date Time Vital Sign Value Performing Clinician Facility 07-13-2024 11:45-0500 Body height 172.72 cm Zoran Flores MD Work Phone: [facility] 07-13-2024 11:45-0500 Body mass index (BMI) [Ratio] 46.2 kg/m2 Zoran Flores MD Work Phone: [facility] 07-13-2024 11:45-0500 Body temperature 98.4 [degF] Zoran Flores MD Work Phone: [facility] 07-13-2024 11:45-0500 Body weight 137.89 kg Zoran Flores MD Work Phone: [facility] 07-13-2024 11:45-0500 Diastolic blood pressure 91 mm[Hg] Zoran Flores MD Work Phone: [facility] 07-13-2024 11:45-0500 Heart rate 99 /min Zoran Flores MD Work Phone: [facility] 07-13-2024 11:45-0500 Respiratory rate 18 /min Zoran Flores MD Work Phone: [facility] 07-13-2024 11:45-0500 SaO2% (BldA) [Mass fraction] 97 % Zoran Flores MD Work Phone: [facility] 07-13-2024 11:45-0500 Systolic blood pressure 142 mm[Hg] Zoran Flores MD Work Phone: [facility] 07-08-2024 14:19-0500 Body height 172.7 cm Zoran Flores MD Work Phone: [facility] 07-08-2024 14:19-0500 Body mass index (BMI) [Ratio] 46.38 kg/m2 Zoran Flores MD Work Phone: [facility] 07-08-2024 14:19-0500 Body temperature 96.6 [degF] Zoran Flores MD Work Phone: [facility] 07-08-2024 14:19-0500 Body weight 138.35 kg Zoran Flores MD Work Phone: [facility] 07-08-2024 14:19-0500 Diastolic blood pressure 90 mm[Hg] Zoran Flores MD Work Phone: [facility] 07-08-2024 14:19-0500 Heart rate 108 /min Zoran Flores MD Work Phone: [facility] 07-08-2024 14:19-0500 Respiratory rate 22 /min Zoran Flores MD Work Phone: [facility] 07-08-2024 14:19-0500 SaO2% (BldA) [Mass fraction] 95 % Zoran Flores MD Work Phone: [facility] 07-08-2024 14:19-0500 Systolic blood pressure 148 mm[Hg] Zoran Flores MD Work Phone: [facility] 06-18-2024 14:30-0500 Diastolic blood pressure 94 mm[Hg] Zoran Flores MD Work Phone: [facility] 06-18-2024 14:30-0500 Heart rate 81 /min Zoran Flores MD Work Phone: [facility] 06-18-2024 14:30-0500 Respiratory rate 16 /min Zoran Flores MD Work Phone: [facility] 06-18-2024 14:30-0500 SaO2% (BldA) [Mass fraction] 100 % Zoran Flores MD Work Phone: [facility] 06-18-2024 14:30-0500 Systolic blood pressure 147 mm[Hg] Zoran Flores MD Work Phone: [facility] 06-18-2024 12:14-0500 Body height 172.72 cm Zoran Flores MD Work Phone: [facility] 06-18-2024 12:14-0500 Body weight 130.63 kg Zoran Flores MD Work Phone: [facility] 04-05-2024 10:23-0400 Body height 172.7 cm Zoran Flores MD Work Phone: [facility] 04-05-2024 10:23-0400 Body mass index (BMI) [Ratio] 44.85 kg/m2 Zoran Flores MD Work Phone: [facility] 04-05-2024 10:23-0400 Body temperature 97.11 [degF] Zoran Flores MD Work Phone: [facility] 04-05-2024 10:23-0400 Body weight 133.81 kg Zoran Flores MD Work Phone: [facility] 04-05-2024 10:23-0400 Diastolic blood pressure 84 mm[Hg] Zoran Flores MD Work Phone: [facility] 04-05-2024 10:23-0400 Heart rate 106 /min Zoran Flores MD Work Phone: [facility] 04-05-2024 10:23-0400 Respiratory rate 20 /min Zoran Flores MD Work Phone: [facility] 04-05-2024 10:23-0400 SaO2% (BldA) [Mass fraction] 98 % Zoran Flores MD Work Phone: [facility] 04-05-2024 10:23-0400 Systolic blood pressure 160 mm[Hg] Zoran Flores MD Work Phone: [facility] 04-01-2024 15:08-0400 Body height 167.64 cm [facility] 04-01-2024 15:08-0400 Body mass index (BMI) [Ratio] 50.5 kg/m2 [facility] 04-01-2024 15:08-0400 Body weight 141.97 kg [facility] 10-24-2023 15:06-0400 Body height 168.28 cm [facility] 10-24-2023 15:06-0400 Body mass index (BMI) [Ratio] 50.2 kg/m2 [facility] 10-24-2023 15:06-0400 Body weight 142.2 kg [facility] 10-24-2023 15:06-0400 Diastolic blood pressure 91 mm[Hg] [facility] 10-24-2023 15:06-0400 Heart rate 94 /min [facility] 10-24-2023 15:06-0400 Respiratory rate 16 /min [facility] 10-24-2023 15:06-0400 SaO2% (BldA) [Mass fraction] 96 % [facility] 10-24-2023 15:06-0400 Systolic blood pressure 129 mm[Hg] [facility] 09-21-2023 09:42-0400 Body height 172.72 cm [facility] 09-21-2023 09:42-0400 Body mass index (BMI) [Ratio] 47.1 kg/m2 [facility] 09-21-2023 09:42-0400 Body temperature 98.7 [degF] [facility] 09-21-2023 09:42-0400 Body weight 140.61 kg [facility] 09-21-2023 09:42-0400 Heart rate 98 /min [facility] 09-21-2023 09:42-0400 Respiratory rate 18 /min [facility] 09-21-2023 09:42-0400 SaO2% (BldA) [Mass fraction] 97 % [facility] 04-21-2023 10:10-0400 Body height 171.45 cm Maribel Ricketts [employer] Other 04-21-2023 10:10-0400 Body mass index (BMI) [Ratio] 46.29 kg/m2 Maribel Flanagan Other [employer] Other 04-21-2023 10:10-0400 Body temperature 97.2 [degF] Maribel Flanagan Other [employer] Other 04-21-2023 10:10-0400 Body weight 136.08 kg Maribel Flaangan Other [employer] Other 04-21-2023 10:10-0400 Diastolic blood pressure 88 mm[Hg] Maribel Flanagan Other [employer] Other 04-21-2023 10:10-0400 Respiratory rate 17 /min Maribel Flanagan Other [employer] Other 04-21-2023 10:10-0400 SaO2% (BldA) [Mass fraction] 98 % Maribel Flanagan Other [employer] Other 04-21-2023 10:10-0400 Systolic blood pressure 156 mm[Hg] Maribel Flanagan Other [employer] Other 11-02-2021 14:15-0400 Diastolic blood pressure 96 mm[Hg] Michael Wiseman MD Work Phone: [employer] 11-02-2021 14:15-0400 Heart rate 99 /min Michael Wiseman MD Work Phone: [employer] 11-02-2021 14:15-0400 Systolic blood pressure 141 mm[Hg] Michael Wiseman MD Work Phone: [employer] 11-02-2021 14:13-0400 Respiratory rate 16 /min Michael Wiseman MD Work Phone: [employer] 02-18-2021 20:25-0400 Body temperature 97.2 [degF] Enrique Srinivasan MD Work Phone: [employer] Work Phone: 02-18-2021 20:25-0400 Diastolic blood pressure 84 mm[Hg] Enrique Srinivasan MD Work Phone: [employer] Work Phone: 02-18-2021 20:25-0400 Heart rate 102 /min Enrique Srinivasan MD Work Phone: [employer] Work Phone: 02-18-2021 20:25-0400 Respiratory rate 16 /min Enrique Srinivasan MD Work Phone: [employer] Work Phone: 02-18-2021 20:25-0400 SaO2% (BldA) [Mass fraction] 96 % Enrique Srinivasan MD Work Phone: [facility] Work Phone: 02-18-2021 20:25-0400 Systolic blood pressure 128 mm[Hg] Enrique Srinivasan MD Work Phone: [facility] Work Phone: 02-13-2021 22:45-0400 Diastolic blood pressure 87 mm[Hg] Enrique Srinivasan MD Work Phone: [facility] Work Phone: 02-13-2021 22:45-0400 Systolic blood pressure 186 mm[Hg] Enrique Srinivasan MD Work Phone: [employer] Work Phone: 02-13-2021 21:55-0400 Body height 172.7 cm Enrique Srinivasan MD Work Phone: [employer] Work Phone: 02-13-2021 21:55-0400 Body mass index (BMI) [Ratio] 45.61 kg/m2 Enrique Srinivasan MD Work Phone: [facility] Work Phone: 02-13-2021 21:55-0400 Body weight 136.08 kg Enrique Srinivasan MD Work Phone: [facility] Work Phone: 02-13-2021 21:55-0400 Heart rate 103 /min Enrique Srinivasan MD Work Phone: [facility] Work Phone: 02-13-2021 21:55-0400 Respiratory rate 18 /min Enrique Srinivasan MD Work Phone: [facility] Work Phone: 02-13-2021 21:55-0400 SaO2% (BldA) [Mass fraction] 98 % Enrique Srinivasan MD Work Phone: [facility] Work Phone: 12-16-2020 23:20-0400 Diastolic blood pressure 89 mm[Hg] Adi Andes DO Work Phone: [facility] Work Phone: 12-16-2020 23:20-0400 SaO2% (BldA) [Mass fraction] 95 % Adi Andes DO Work Phone: [facility] Work Phone: 12-16-2020 23:20-0400 Systolic blood pressure 163 mm[Hg] Adi Andes DO Work Phone: [facility] Work Phone: 12-16-2020 22:25-0400 Body mass index (BMI) [Ratio] 46.98 kg/m2 Adi Andes DO Work Phone: [facility] Work Phone: 12-16-2020 22:25-0400 Body temperature 97.3 [degF] Adi Andes DO Work Phone: [facility] Work Phone: 12-16-2020 22:25-0400 Body weight 140.16 kg Adi Andes DO Work Phone: [facility] Work Phone: 12-16-2020 22:25-0400 Heart rate 101 /min Adi Andes DO Work Phone: [facility] Work Phone: 10-26-2020 00:30-0400 SaO2% (BldA) [Mass fraction] 97 % Avinash Kee MD Work Phone: [facility] Work Phone: 10-26-2020 00:00-0400 Diastolic blood pressure 56 mm[Hg] Avinash Kee MD Work Phone: [facility] Work Phone: 10-26-2020 00:00-0400 Systolic blood pressure 145 mm[Hg] Avinash Kee MD Work Phone: [facility] Work Phone: 10-25-2020 22:11-0400 Body temperature 97.2 [degF] Avinash Kee MD Work Phone: [facility] Work Phone: 10-25-2020 22:11-0400 Heart rate 101 /min Avinash Kee MD Work Phone: [facility] Work Phone: 10-25-2020 22:11-0400 Respiratory rate 17 /min Avinash Kee MD Work Phone: [facility] Work Phone: 10-20-2020 00:40-0400 Body Temperature 97.5 [degF] Enrique Craig [facility] Work Phone: 10-20-2020 00:40-0400 BP Diastolic 90 mm[Hg] [employer] Work Phone: 10-20-2020 00:40-0400 BP Systolic 103 mm[Hg] [employer] Work Phone: 10-20-2020 00:40-0400 Pulse (Heart Rate) 103 /min [employer] Work Phone: 10-20-2020 00:40-0400 Pulse Oximetry 95 % [facility] Phone: 10-20-2020 00:40-0400 Respiratory Rate 22 /min [facility] Phone: 10-19-2020 23:06-0400 BMI (Body Mass Index) 42.57 kg/m2 [employer] Work Phone: 10-19-2020 23:06-0400 Body weight 127.01 kg [facility] Phone: Encounters Encounter Date Encounter Type Care Provider Facility Start: 08-01-2024 End: 08-01-2024 Refill Lyndsay Jett DATA MANAGEMENT ANALYST-[employer] DIRECTOR Work Phone: [facility] Comment on above: Vulvar itching Irritant contact jose matitis due to other chemical products Start: 07-13-2024 End: 07-13-2024 ambulatory Zoran Flores MD Work Phone: [facility] Work Phone: Start: 07-13-2024 End: 07-13-2024 Patient encounter procedure Zoran Flores MD Work Phone: [facility] Work Phone: Start: 07-08-2024 End: 07-08-2024 Office outpatient visit 25 minutes Zoran Flores MD Work Phone: [facility] Comment on above: Benign essential hyp ertension (CMS/HCC) (Primary Dx); Palpitation; Attention deficit disorder (ADD) without hyperactivity; Mood disorder (CMS/HCC); LAMIN (generalized anxiety disorder) (CMS/HCC); Annual physical exam Start: 07-08-2024 End: 07-08-2024 Patient encounter procedure Zoran Flores MD Work Phone: [facility] Start: 07-08-2024 End: 07-08-2024 ambulatory ZORAN FLORES Not Available Start: 07-08-2024 End: 07-08-2024 Bamboo flowsheet Zoran Flores MD Work Phone: [facility] Start: 07-08-2024 End: 07-08-2024 Bamboo flowsheet Zoran Flores MD Work Phone: [facility] Start: 06-18-2024 Non-patient / Non-visit Zoran benoit MD Work Phone: [facility] Work Phone: Start: 06-18-2024 End: 06-18-2024 Admission to same day surgery center Zoran Flores MD Work Phone: [facility] Work Phone: Start: 06-18-2024 End: 06-18-2024 ambulatory Zoran Flores Facility:[facility] Start: 05-06-2024 End: 05-06-2024 Refill Zoran Flores MD Work Phone: [facility] Comment on above: Mild persistent asth ma, uncomplicated (CMS/HCC) Start: 04-15-2024 End: 04-15-2024 Patient encounter procedure MD Zoran Flores Work Phone: [facility] [place] Work Phone: Start: 04-15-2024 End: 04-15-2024 ambulatory MD Zoran Flores Work Phone: [facility] Work Phone: Start: 04-05-2024 End: 04-05-2024 Bamboo flowsheet Zoran Flores MD Work Phone: [facility] Start: 04-05-2024 End: 04-05-2024 Bamboo flowsheet Zoran Flores MD Work Phone: [facility] Start: 04-05-2024 End: 04-05-2024 ambulatory ZORAN FLORES Not Available Start: 04-05-2024 End: 04-05-2024 Office outpatient visit 25 minutes Zoran Flores MD Work Phone: [facility] Comment on above: Mood disorder (CMS/H CC) (Primary Dx); LAMIN (generalized anxiety disorder) (CMS/HCC); Blood pressure elevated without history of HTN Start: 04-01-2024 End: 04-01-2024 ambulatory [facility] Work Phone: Start: 04-01-2024 End: 04-01-2024 Patient encounter procedure [facility] Work Phone: Start: 03-27-2024 End: 03-29-2024 Clinisync Result Encounter Generic External Data Provider [facility] External Department Unsolicited Start: 03-27-2024 End: 03-29-2024 Clinisync Result Encounter Generic External Data Provider [facility] External Department Unsolicited Start: 03-21-2024 End: 03-21-2024 ambulatory LYNDSAY JETT [facility] Start: 03-21-2024 End: 03-21-2024 ambulatory LYNDSAY JETT [facility] Start: 02-29-2024 End: 03-03-2024 Clinisync Result Encounter Generic External Data Provider [facility] External Department Unsolicited Start: 02-29-2024 End: 03-03-2024 Clinisync Result Encounter Generic External Data Provider [facility] External Department Unsolicited Start: 02-25-2024 End: 02-25-2024 Letter encounter Heather Taylor MD Work Phone: [facility] Start: 2024 End: [facility] Start: [facility]24 End: 2024 ambulatory TEJASCALIN MA [facility] Start: 2024 End: 2024 ambulatory TEJAS M [facility] Start: 11-22-2023 End: 11-22-2023 ambulatory SHAIKH CLINT Not Available Start: 10-26-2023 End: 10-26-2023 ambulatory [facility] Work Phone: Start: 10-26-2023 End: 10-26-2023 Patient encounter procedure [facility] Work Phone: Start: 10-24-2023 End: 10-24-2023 ambulatory [facility] Work Phone: Start: 10-24-2023 End: 10-24-2023 Patient encounter procedure [facility] Work Phone: Start: 09-21-2023 End: 09-21-2023 ambulatory [facility] Work Phone: Start: 09-21-2023 End: 09-21-2023 Patient encounter procedure [facility] Work Phone: Start: 09-12-2023 End: 09-12-2023 ambulatory URSULA ALMASSI Facility:[facility] Start: 09-04-2023 End: 09-04-2023 ambulatory ZORAN FLORES Not Available Start: 08-31-2023 Refill Michael dominguez MD Other Phone: [facility] Otolaryng[facility] (ENT) Comment on above: Refill Start: 08-24-2023 Orders Only Zoran Lewis Work Phone: [facility] Comment on above: Right kidney mass (P rimary Dx) Start: 08-22-2023 Orders Only Zoran Lewis Work Phone: [facility] Comment on above: Right kidney mass (P rimary Dx) Start: 07-27-2023 Non-patient / Non-visit [facility] Professional [employer] Work Phone: Start: 07-27-2023 Patient encounter procedure Zoran Flores MD Work Phone: [facility] Start: 07-27-2023 End: 07-27-2023 ambulatory ZORAN FLORES Not Available Start: 07-18-2023 End: 07-18-2023 ambulatory HANY ELLISON Not Available Start: 07-11-2023 End: 07-11-2023 ambulatory MARYANA Rios AMADOR Not Available Start: 07-04-2023 End: 07-04-2023 ambulatory Jeremiah Chen Other [employer] Other Start: 07-04-2023 Telephone encounter Jeremiah Huggins ck [facility] Start: 04-21-2023 Office outpatient ne w 10 minutes Maribel Flanagan [facility] Start: 04-21-2023 End: 04-21-2023 ambulatory MD Zoran Flores Work Phone: [facility] [employer] Other Start: 04-21-2023 End: 04-21-2023 Patient encounter procedure MD Zoran Flores Work Phone: [facility] Work Phone: Start: 04-18-2023 Refill Michael dominguez MD Work Phone: [facility] Otolaryngology (ENT) Comment on above: Refill Start: 04-04-2023 Emergency department patient visit ZORAN FLORES [facility] Start: 11-28-[address] DOCTOR JIMENEZ Facility : Start: 11-18-2022 End: 11-19-[address] ZORAN FLORES Facility:[facility] Start: 10-14-2022 Orders Only Michael dominguez MD Work Phone: [facility] Otolaryngology (ENT) Comment on above: Referral to Speciali st Start: 08-07-2022 Refill Michael dominguez MD Work Phone: [facility] Otolaryngology (ENT) Comment on above: Refill Start: 05-17-2022 Refill Michael dominguez MD Work Phone: [facility] Otol[facility]ology (ENT) Comment on above: Refill Start: 04-01-2022 Encounter for genera l adult medical examination without abnormal findings DR ZORAN FLORES [facility] Start: 03-30-2022 End: 03-31-[address] ZORAN FLORES Facility:[facility] Start: 03-30-2022 End: 03-31-2022 Encounter for general adult medical examination without abnormal findings DR ZORAN FLORES Facility:[facility] Start: 02-25-2022 End: 02-25-[address] ZORAN FLORES Facility:[facility] Start: 11-02-2021 End: 11-02-2021 Office outpatient visit 25 minutes Michael Wiseman MD Work Phone: [facility] Otolaryngology (ENT) Comment on above: Chronic pansinusitis (Primary Dx); Anosmia; Multiple nasal polyps Start: 02-18-2021 End: 02-18-2021 Emergency department patient visit Enrique Srinivasan MD Work Phone: [facility] ED Comment on above: Chronic sinusitis, u nspecified location (Primary Dx); Post-op pain Start: 02-13-2021 End: 02-13-2021 Emergency department patient visit Enrique Srinivasan MD Work Phone: [facility] ED Comment on above: Close exposure to CO VID-19 virus (Primary Dx) Start: 12-16-2020 End: 12-16-2020 Emergency department patient visit Adi Berg DO Work Phone: [facility] Comment on above: Mild intermittent as thma with exacerbation (Primary Dx) Start: 10-25-2020 End: 10-26-2020 Emergency department patient visit Avinash Kee MD Work Phone: [facility] ED Comment on above: Nausea vomiting and diarrhea (Primary Dx); COVID-19 virus infection Start: 10-19-2020 End: 10-20-2020 Emergency department patient visit Enrique Srinivasan Work Phone: [facility] ED Comment on above: COVID-19 (Primary Dx ) Procedures Date Procedure Procedure Detail Performing Clinician Start: 06-18-2024 Colonoscopy Zoran bose MD Work Phone: Start: 03-27-2024 E COLI SHIGA TOXIN EIA Generic External Data Provider Start: 03-27-2024 SALMONELLA/SHIGELLA SCREEN Generic External Data Provider Start: 02-29-2024 Bacteria identified in Urine by Culture Generic External Data Provider Start: 04-21-2023 X-ray of right knee MD Zoran Flores Work Phone: Start: 11-02-2021 Nasal endoscopy diag nostic uni/bi spx Michael Wiseman MD Work Phone: Start: 02-13-2021 ABIMBOLA-Ender, RAPID Enrique Srinivasan MD Work Phone: Start: 10-25-2020 Blood count complete auto&auto difrntl wbc Avinash Kee MD Work Phone: Start: 10-19-2020 Radiologic exam ches t single view Enrique Srinivasan Work Phone: Start: 10-19-2020 COVID-19, RAPID Enrique Srinivasan Work Phone: Start: 06-21-2019 Microscopic observat ion [Identifier] in Cervix by Cyto stain Lyndsay Jett DATA MANAGEMENT ANALYST-[employer]DR[employer] DIRECTOR Work Phone: Plan of Treatment Date Care Activity Detail Author Start: 2047 Shingles (RZV) Vaccine (1 of 2) Shingles (RZV) Vaccine (1 of 2) [facility] Start: 10-16-2031 DTaP,Tdap and Td Vaccines (4 - Td or Tdap) DTaP,Tdap and Td Vaccines (4 - Td or Tdap) [facility] Start: 10-16-2031 Tetanus vaccination [facility] Start: 03-21-2025 Adult BMI Screening Adult [facility] Start: 03-21-2025 Tobacco Screening Tobacco Screening [facility] Start: 08-09-2024 End: 08-09-2024 Patient encounter procedure 08/09/2024 9:45 AM EST Office Visit [facility] [address] [place] [phone] Zoran Flores MD [address] [place] [phone] [facility] Start: 07-08-2024 End: 07-08-2024 Patient encounter procedure 07/08/2024 2:15 PM EST Office Visit [facility] [address] [place] [phone] Zoran Flores MD [address] [place] [phone] Arrived [facility] Comment on above: Arrived Start: 07-08-2024 End: 07-08-2025 Basic metabolic 1998 panel - Serum or Plasma Basic metabolic panel Lab Routine Annual physical exam Expected: 07/08/2024 (Approximate), Expires: 07/08/2025 [facility] Comment on above: Expected: 07/08/2024 (Approximate), Expi res: 07/08/2025 Start: 07-08-2024 End: 07-08-2025 CBC W Auto Differential panel - Blood CBC and differential Lab Routine Annual physical exam Expected: 07/08/2024 (Approximate), Expires: 07/08/2025 [facility] Comment on above: Expected: 07/08/2024 (Approximate), Expi res: 07/08/2025 Start: 07-08-2024 End: 07-08-2025 Hemoglobin A1c/Hemoglobin.total in Blood Hemoglobin A1c Lab Routine Annual physical exam Expected: 07/08/2024 (Approximate), Expires: 07/08/2025 [facility] Comment on above: Expected: 07/08/2024 (Approximate), Expi res: 07/08/2025 Start: 07-08-2024 End: 07-08-2025 Hepatic function 2000 panel - Serum or Plasma Hepatic function panel Lab Routine Annual physical exam Expected: 07/08/2024 (Approximate), Expires: 07/08/2025 [facility] Comment on above: Expected: 07/08/2024 (Approximate), Expi res: 07/08/2025 Start: 07-08-2024 End: 07-08-2025 Holter monitor study Holter monitor Imaging Routine Palpitation Expected: 07/08/2024 (Approximate), Expires: 07/08/2025 [facility] Work Phone: Comment on above: Expected: 07/08/2024 (Approximate), Expi res: 07/08/2025 Start: 07-08-2024 End: 07-08-2025 Lipid 1996 panel - Serum or Plasma Lipid panel Lab Routine Annual physical exam Expected: 07/08/2024 (Approximate), Expires: 07/08/2025 [facility] Comment on above: Expected: 07/08/2024 (Approximate), Expi res: 07/08/2025 Start: 07-08-2024 End: 07-08-2025 TSH W/REFLEX TO FT4 TSH W/REFLEX TO FT4 Lab Routine Annual physical exam Expected: 07/08/2024 (Approximate), Expires: 07/08/2025 [facility] Comment on above: Expected: 07/08/2024 (Approximate), Expi res: 07/08/2025 Start: 06-18-2024 [facility] Start: 05-09-2024 End: 05-09-2024 Patient encounter procedure 05/09/2024 11:00 AM EDT Office Visit [facility] [address] [place] [address] Zoran Flores MD [address] [place] [phone] [facility] Start: 04-15-2024 [facility] Start: 04-15-2024 [facility] Start: 04-09-2024 Influenza vaccination Influenza Vaccine (#1) [facility] Start: 04-05-2024 End: 04-05-2024 Patient encounter procedure 04/05/2024 10:15 AM EDT Office Visit [facility] [address] [place] [address] Zoran Flores MD [address] [place] [phone] [facility] Start: 03-10-2024 Influenza vaccination [facility] Start: 10-17-2023 End: 10-17-2023 Patient encounter procedure 10/17/2023 1:15 PM EDT Office Visit [facility] [address] [place] [address] Zoran Flores MD [address] [place] [phone] [facility] Start: 09-04-2023 End: 09-04-2023 Patient encounter procedure 09/04/2023 10:45 AM EST Office Visit [facility] [address] [place] [address] Zoran Flores MD [address] [place] [phone] [facility] Start: 04-25-2023 End: 04-25-2023 Patient encounter procedure 04/25/2023 3:00 PM EDT Office Visit [facility] Otolaryngology (ENT) [address] [place], [place] [phone] Michael Wiseman MD [address] [place] [address] [facility] Otolaryngology (ENT) Start: 03-10-2023 COVID-19 Vaccine ( season) COVID-19 Vaccine ( season) [facility] Start: 03-10-2023 Influenza vaccination Influenza Vaccine (#1) [facility] Start: 06-21-2022 Screening for malignant neoplasm of cervix [facility] Start: 04-09-2022 Influenza vaccination Influenza Vaccine (#1) [facility] Start: 12-07-2021 End: 12-07-2021 Patient encounter procedure 12/07/2021 Office Visit [facility]-Otolaryngology Michael Wiseman MD [address] [place] [address] [facility] Otolaryngology (ENT) Start: 03-10-2021 Influenza vaccination [facility] Phone: Start: 02-25-2020 DTaP/Tdap/Td vaccine (3 - Td or Tdap) DTaP/Tdap/Td vaccine (3 - Td or Tdap) [facility] Phone: Start: 02-25-2020 DTaP/Tdap/Td vaccine (3 - Td) DTaP/Tdap/Td vaccine (3 - Td) [facility] Phone: Start: 2018 Screening for malignant neoplasm of cervix [facility] Start: 02-23-2016 Hepatitis A (HAV) Vaccine (optional start 19+ years) Hepatitis A (HAV) Vaccine (optional start 19+ years) [facility] Start: 02-23-2016 Hepatitis B vaccination Hepatitis B (HBV) Vaccine (1 of 3 - 19+ 3-dose series) [facility] Start: 2015 Adult BMI Follow Up Plan Adult BMI Follow Up Plan [facility] Start: 2015 Hepatitis C screening Hepatitis C Antibody [facility] Start: 2015 Screening for Chlamydia trachomatis STI Screening (Age 18-24) [facility] Start: 2013 COVID-19 Vaccine (1) COVID-19 Vaccine (1) [facility] Phone: Start: 2013 Screening for Chlamydia trachomatis Chlamydia screen [facility] Phone: Start: 02-23-2012 HIV screening HIV screen [facility] Phone: Start: 2009 COVID-19 Vaccine (1) COVID-19 Vaccine (1) [facility] Phone: Start: 2009 Depression Screening Depression Screening [facility] Start: 2002 COVID-19 Vaccine (1) COVID-19 Vaccine (1) [facility] Start: 1998 Varicella vaccine (1 of 2 - 2-dose childhood series) Varicella vaccine (1 of 2 - 2-dose childhood series) [facility] Phone: Start: 1997 COVID-19 Vaccine (#1) [facility]-19 [facility] Start: 1997 Hepatitis B vaccination Hepatitis B (HBV) Vaccine (1 of 3 - 3-dose series) [facility] Start: 1997 Hepatitis C screening Hepatitis C screen [facility] Phone: Bacterial cytolethal distending toxin cdt gene [Presence] in Unspecified specimen by MARY with probe detection [facility] Endomysial antibody IgA level [facility] Gliadin peptide IgA Ab [Units/volume] in Serum [facility] Gliadin peptide IgG Ab [Units/volume] in Serum [facility] IgA [Mass/volume] in Serum or Plasma [facility] End: 10-25-2020 Magnesium [Mass/volume] in Serum or Plasma Magnesium Lab Routine Once for 1 Occurrences starting 10/25/2020 until 10/25/2020 [facility] Phone: Comment on above: Once for 1 Occurrences starting 10/26/19 until 10/25/2020 Magnesium [Mass/volu me] in Serum or Plasma Magnesium Lab Routine 10/25/2020 11:08 PM EDT [facility] Work Phone: Patient Education Hemorrhoids Diverticulosis Know your Meds [facility] Work Phone: Tissue transglutamin ase IgA Ab [Units/volume] in Serum [facility] Tissue transglutamin ase IgG Ab [Units/volume] in Serum [facility] Immunizations Immunization Date Immunization Notes Care Provider Fa cili 05-04-2023 Influenza, injectabl e, [place] Canine Kidney, preservative free, quadrivalent Michael Wiseman MD Other Phone: [email or web address] Work Phone: 05-04-2023 influenza virus vacc ine, unspecified formulation Heather Taylor MD Work Phone: [facility] 10-15-2021 tetanus toxoid, redu anastacio diphtheria toxoid, and acellular pertussis vaccine, adsorbed Michael Wiseman MD Work Phone: [facility] 07-19-2018 Human Papillomavirus 9-valent vaccine Michael Wiseman MD Work Phone: [facility] 03-23-2018 Human Papillomavirus 9-valent vaccine Michael Wiseman MD Work Phone: [facility] 01-16-2018 Human Papillomavirus 9-valent vaccine Michael Wiseman MD Work Phone: [facility] 02-24-2010 tetanus toxoid, redu anastacio diphtheria toxoid, and acellular pertussis vaccine, adsorbed Michael Wiseman MD Work Phone: [facility] 05-31-2005 influenza, seasonal, injectable Michael Wiseman MD Work Phone: [facility] 05-31-2005 influenza virus vacc ine, unspecified formulation Michael Wiseman MD Work Phone: [facility] 04-30-2003 influenza, seasonal, injectable Michael Wiseman MD Work Phone: [facility] 05-07-2002 influenza, seasonal, injectable Michael Wiseman MD Work Phone: [facility] 06-08-2001 diphtheria, tetanus toxoids and acellular pertussis vaccine, unspecified formulation Michael Wiseman MD Work Phone: [facility] 06-08-2001 measles, mumps and rubella virus vaccine Michael Wiseman MD Work Phone: [facility] 06-08-2001 poliovirus vaccine, inactivated Michael Wiseman MD Work Phone: [facility] Payers Date Payer Category Payer Self-pay [id number] 2022 Medicaid [id number] 2018 Medicaid [id number] 2016 Unknown [id number] [id number] 2013 Unknown ANTHEM - BLUE CR OSS BLUE CROSS/HMO,PPO,POS [id number] 2013-Present [address] [place] [address] PPO [id number] 1997 Unknown [id number] 2.16.840.1.672422.3.579.2.593 1997 Unknown [id number] 2.16.840.1.888068.3.579.2.593 1997 Unknown [id number] 2.16.840.1.153788.3.579.2.593 1997 Unknown [id number] 2.16.840.1.371790.3.579.2.593 1997 Unknown [id number] 2.16.840.1.759591.3.579.2.173 1997 Unknown [id number] 2.16.840.1.513296.3.579.2.6 1997 Unknown [id number] 2.16.840.1.917514.3.579.2.1285 1997 Unknown [id number] 2.16.840.1.879044.3.579.2.1285 1997 Unknown [id number] 2.16.840.1.230709.3.579.2.1285 1997 Unknown [id number] 2.16.840.1.030246.3.579.2.1285 1997 Unknown [id number] 2.16.840.1.000016.3.579.2.1258 1997 Unknown [id number] 2.16.840.1.632223.3.579.2.1258 1997 Unknown [id number] 2.16.840.1.010807.3.579.2.1258 1997 Unknown [id number] 2.16.840.1.360476.3.579.2.1258 1997 Unknown [id number] 2.16.840.1.263104.3.579.2.1258 1997 Unknown [id number] 2.16.840.1.809233.3.579.2.1258 1997 Unknown [id number] 2.16.840.1.961106.3.579.2.1258 1997 Unknown [id number] 2.16.840.1.675590.3.579.2.1258 1997 Unknown [id number] 2.16.840.1.804285.3.579.2.1258 1997 Unknown [id number] 2.16.840.1.100890.3.579.2.1258 1997 Unknown [id number] 2.16.840.1.541644.3.579.2.1258 1997 Unknown [id number] 2.16.840.1.158966.3.579.2.1259 1959 Unknown [id number] 1.2.840.242437.1.13.239.2.7.3.67 [id number] 1959 Unknown [id number] 1.2.840.886538.1.13.239.2.7.3.67 [id number] Unknown [id number] 2.16.840.1.164533.19 Unknown [id number] 2.16.840.1.292177.3.579.2.531 Unknown [id number] 2.16.840.1.195466.3.579.2.531 Social History Date Type Detail Facility Start: 10-19-2020 End: 2024 Tobacco smoking status NHIS Never smoker [facility] Phone: Start: 10-19-2020 End: 2024 Tobacco use and exposure Never used [facility] Phone: Start: 10-19-2020 End: 03-21-2024 Alcohol intake Current non-drinker of alcohol (finding) [facility] Phone: Start: 1997 Sex Assigned At Not on file [facility] [employer] Phone: Exposure to SARS-CoV -2 (event) Yes [facility] Phone: Exposure to SARS-CoV -2 (event) Not sure [facility] Start: 11-02-2021 End: 07-27-2023 Alcohol intake Current drinker of alcohol (finding) [facility] Start: 11-23-2018 History SDOH Alcohol Comment OCC [facility] Start: 1997 [facility]igned [facility] Start: 09-13-2021 Gender identity Identifies as female gender (finding) [facility] Start: 09-13-2021 Sexual orientation Female homo sexual (finding) [facility] Start: 08-20-2020 End: 10-25-2023 Sex Assigned At [facility] Start: 08-20-2020 End: 07-27-2023 Alcohol intake [facility] How often to you hav e a drink containing alcohol? Monthly or less [facility] Average Number of Drinks Not on file [facility] Start: 05-03-2023 Alcohol Comment caffeine intak e: 1-2 cups per day [facility] Start: 04-05-2024 End: 07-08-2024 Alcoholic beverage intake Lifetime non-drinker (finding) [facility] Start: 02-12-2015 End: 07-13-2024 Sex Female (finding) [facility] NEGATED: Highlighted rowStart: NINF History of tobacco use Passive smoker [facility] Goals Date Patient Goal Desired Activity /State Clinical Notes 02-13-2021 to 08-01-2024 Telephone Encounter - SHELLY Cohen - 08/01/2024 12:30 AM ESTTelephone Encounter - SHELLY Lord - 08/01/2024 12:30 AM Perlita Flores MD - 07/08/2024 2:48 PM EST Note Date & Type Note Facility 08-01-2024 Miscellaneous Notes Formattin g of this note might be different from the original. Patient needs annual / pap. No refills sent. documented in this encounter [facility] 08-01-2024 Miscellaneous Notes Formattin g of this note might be different from the original. Refill declined, steroid cream was short term rx for due to contact dermatitis 02/2024. - SHELLY Cornell 08/01/24 8:28 AM documented in this encounter [facility] 08-01-2024 Telephone encount er Note Patient needs annual / pap. No refills sent. [facility] 08-01-2024 Telephone encount er Note Refill declined, steroid cream was short term rx for due to contact dermatitis 02/2024. - SHELLY Cornell 08/01/24 8:28 AM [employer] 07-08-2024 History of Presen t illness Narrative Associated Problem(s): LAMIN (generalized anxiety disorder) (CMS/HCC) Doing well without medication and monitor. Associated Problem(s): Mood disorder (CMS/HCC) Doing well without medication and monitor. Associated Problem(s): Palpitation Frequent symptoms and check Holter. Associated Problem(s): Benign essential hypertension (CMS/HCC) BP elevated over past few months and start procardia. Monitor BP PRN. Associated Problem(s): Attention deficit disorder (ADD) without hyperactivity Worsening symptoms and try vyvanse. Images from the original note were not included. Subjective Patient ID: Melanie Ennis is a 29 y.o. female who presents for Hypertension (Bp and heart rate running high, heart palpitations. ). Concerned of elevated blood pressure. Patient goes to other specialists and notice BP elevated each visit. Recent colonoscopy and elevated. Last visit BP elevated and today 148/90. C/o palpitations and heart racing. Feels like beating fast and at times lightheaded. Smart watch tells her pulse 140-150 often at rest. Mentally feels like doing well without medication. Not down or sad and feels happier. Denies anxiety and not stressed out or overwhelmed. Concerned of ADD. Problems for years and prior ritalin as child but didn't tolerate. Not focused and hard to complete tasks. Not organized and easily distracted. Starts multiple projects without completing and frequently misplaces things. Affecting work and wants to try medication. Review of Systems Respiratory: Negative for cough, shortness of breath and wheezing. Cardiovascular: Negative for chest pain and palpitations. Gastrointestinal: Negative for abdominal pain, diarrhea, nausea and vomiting. Genitourinary: Negative for dysuria. Objective Physical Exam Constitutional: General: She is not in acute distress. Appearance: Normal appearance. HENT: Head: Normocephalic. Right Ear: Tympanic membrane normal. Left Ear: Tympanic membrane normal. Eyes: Extraocular Movements: Extraocular movements intact. Pupils: Pupils are equal, round, and reactive to light. Cardiovascular: Rate and Rhythm: Normal rate and regular rhythm. Heart sounds: No murmur heard. No friction rub. No gallop. Pulmonary: Effort: Pulmonary effort is normal. Breath sounds: Normal breath sounds. No wheezing, rhonchi or rales. Abdominal: General: Bowel sounds are normal. There is no distension. Palpations: Abdomen is soft. Tenderness: There is no abdominal tenderness. There is no guarding or rebound. Musculoskeletal: Cervical back: Neck supple. Right lower leg: No edema. Left lower leg: No edema. Neurological: Mental Status: She is alert. Assessment/Plan Problem List Items Addressed This Visit Attention deficit disorder (ADD) without hyperactivity Worsening symptoms and try vyvanse. Relevant Medications lisdexamfetamine (Vyvanse) 10 MG capsule Annual physical exam Relevant Orders Hemoglobin A1c Basic metabolic panel CBC and differential Lipid panel TSH W/REFLEX TO FT4 Hepatic function panel Mood disorder (CMS/HCC) Doing well without medication and monitor. LAMIN (generalized anxiety disorder) (CMS/HCC) Doing well without medication and monitor. Benign essential hypertension (CMS/HCC) - Primary BP elevated over past few months and start procardia. Monitor BP PRN. Relevant Medications NIFEdipine XL (Procardia XL) 30 MG 24 hr tablet Palpitation Frequent symptoms and check Holter. Relevant Orders Holter monitor documented in this encounter [facility] 04-05-2024 History of Presen t illness Narrative Associated Problem(s): LAMIN (generalized anxiety disorder) (CMS/HCC) Severe symptoms and not functioning well. Start lamictal. Associated Problem(s): Mood disorder (CMS/HCC) Severe symptoms and not functioning well. Start lamictal. Associated Problem(s): Blood pressure elevated without history of HTN BP elevated but no history of HTN. Monitor PRN. If remains elevated will need to treat. Discussed DASH diet. Images from the original note were not included. Subjective Patient ID: Melanie Ennis is a 29 y.o. female who presents for Follow-up (Psychological issues.) and Hypertension. Concerned of mental health issues. Patient has felt off for years. Severe anxiety and worries about everything. At times down, sad, and no motivation. Starts to hallucinate and sees things that aren't there. Always worried something is wrong. In past tried SSRI and felt worse. Had to drop out of school because wasn't focused. Not able to concentrate or stay on task. BP elevated today but no history HTN. BP recently elevated in ER. Not monitoring away from office. Review of Systems Respiratory: Negative for cough, shortness of breath and wheezing. Cardiovascular: Negative for chest pain and palpitations. Gastrointestinal: Negative for abdominal pain, diarrhea, nausea and vomiting. Genitourinary: Negative for dysuria. Objective Physical Exam Constitutional: General: She is not in acute distress. Appearance: Normal appearance. HENT: Head: Normocephalic. Right Ear: Tympanic membrane normal. Left Ear: Tympanic membrane normal. Eyes: Extraocular Movements: Extraocular movements intact. Pupils: Pupils are equal, round, and reactive to light. Cardiovascular: Rate and Rhythm: Normal rate and regular rhythm. Heart sounds: No murmur heard. No friction rub. No gallop. Pulmonary: Effort: Pulmonary effort is normal. Breath sounds: Normal breath sounds. No wheezing, rhonchi or rales. Abdominal: General: Bowel sounds are normal. There is no distension. Palpations: Abdomen is soft. Tenderness: There is no abdominal tenderness. There is no guarding or rebound. Musculoskeletal: Cervical back: Neck supple. Right lower leg: No edema. Left lower leg: No edema. Neurological: Mental Status: She is alert. Assessment/Plan Problem List Items Addressed This Visit Mood disorder (CMS/HCC) - Primary Severe symptoms and not functioning well. Start lamictal. Relevant Medications lamoTRIgine (LaMICtal) 25 MG tablet LAMIN (generalized anxiety disorder) (CMS/HCC) Severe symptoms and not functioning well. Start lamictal. Blood pressure elevated without history of HTN BP elevated but no history of HTN. Monitor PRN. If remains elevated will need to treat. Discussed DASH diet. documented in this encounter [facility] 09-12-2023 Note HNO ID: [id number] Author: URSULA MCGINNIS MD Service: ? Author Type: Physician Type: Progress Notes Filed: 09/12/2023 20:11 Note Text: [facility] NEW PATIENT HISTORY [...] for instances in which biopsy results will change management manager, while explaining the risks and limitations of [...] VTE, and risk of cardiopulmonary complication including DC, CVA, or respiratory failure. I reviewed the [...] repsect to pe (more content not included)... [facility] 04-21-2023 Evaluation note Encounter Date Diagnosis [...] no improvement in 5 to 7 days [employer] Other 04-07-2023 Radha is asking if an outside referral can be sent to dr. Shankar in [place]. He specializes in Samter's triad but requires a referral. The fax number is [phone] and demographics will need to be sent as well. I would be happy to send the referral once it is available. Thank you, [facility]04-07-2023 Telephone encounter Note* Telephone Encounter - Hansa Quiroga - 10/14/2022 3:08 PM EDT Melanie is asking if an outside referral can be sent to dr. Shankar in [place]. He specializes in Samter s triad but requires a referral. The fax number is [phone] and demographics will need to be sent as well. I would be happy to send the referral once it is available. Thank you, Zoie [id number] Miscellaneous Notes* Telephone Encounter - Hansa Quiroga - 10/14/2022 3:08 PM EDT Melanie is asking if an outside referral can be sent to dr. Shankar in [place]. He specializes in Samter s triad but requires a referral. The fax number is [phone] and demographics will need to be sent as well. I would be happy to send the referral once it is available. Thank you, Zoie documented in this [id number] Telephone encounter Note* Telephone Encounter - Becky [...] PCP on file No PCP on file [id number] Miscellaneous Notes* Telephone Encounter - Becky Hernandez [...] No PCP on file documented in this [id number] History of Present illness Narrative* Michael Wiseman [...] PER LOCALIZATION; Surgeon: Michael Wiseman MD; Location: [facility]; Service: Otolaryngology MYRINGOTOMY WITH PRESSURE [...] Nausea Pollen Extract Itching Wheat Bran diarrhea [employer] Other reaction(s): Nausea And Vomiting Arcadia-Related Products Nausea Other (Review Comments!) Itching and [...] appropriate exam) Counseling/educating : patient Charting in [facility] of which 20 minutes was spent [id number] with the patient documented in this [id number] Hospital Discharge instructions* Instructions* Enrique Srinivasan MD [...] or ANY other concerns. [phone] 326-786708-07-2021 Hospital Discharge instructions* Instructions* Enrique Srinivasan MD [...] Everywhere. * Coronavirus Disease (COVID-19): General Info (Citizen [place]) [facility] evaluwobyk note* Diagnosis Nausea vomiting and diarrhea- Primary Nausea with vomiting COVID-19 virus infection documented in this encounter [facility] Phone: evalklsosf note* Diagnosis Mild intermittent asthma with exacerbation- Primary Unspecified asthma, with exacerbation documented in this encounter [facility] Phone: evaluation note* Diagnosis Close exposure to COVID-19 virus- Primary documented in this encounter [facility] Phone: evaluation note* Diagnosis Chronic sinusitis, unspecified location- Primary Post-op pain Other acute postoperative pain documented in this encounter [facility] Phone: evalmekekc note* Diagnosis Chronic pansinusitis- Primary Other chronic sinusitis Anosmia Disturbances of sensation of smell and taste Multiple nasal polyps Unspecified nasal polyp [facility] Diagnosis Chronic pansinusitis- Primary Other chronic sinusitis Multiple nasal polyps Unspecified nasal polyp [facility] Phone: Evaluation noteNo [facility] [employer] Other Evaluation note* Diagnosis Right kidney mass- Primary Unspecified disorder of kidney and ureter [facility]* Diagnosis Onset Date Resolution Status Contact with or exposure to viral disease noneactive [facility] Work Phone: evaluation note* Diagnosis Onset Date Resolution Status Acute viral sinusitis noneac tive Contact with or exposure to viral disease noneactive Asthma acute BMI 50.0-59.9, adult acute IBS (irritable bowel syndrome) acute Obesity acute Prediabetes acute Vitamin D deficiency, unspecified acute [facility] Work Phone: evaluation note* Diagnosis Onset Date Resolution Status Diarrhea acute Nausea alone acute [facility] Work Phone: Evaluation note* Diagnosis Right kidney mass- Primary Unspecified disorder of kidney and ureter Polyuria Hypokalemia Hypopotassemia Annual physical exam Routine general medical examination at a health care facility Hypersomnia- Primary Hypersomnia, unspecified Prediabetes Other abnormal glucose Fatty liver disease, nonalcoholic Right kidney mass Unspecified disorder of kidney and ureter Aspirin-exacerbated respiratory disease (AERD) ([facility]) Morbid obesity ([facility]) Morbid obesity Body mass index [BMI] 45.0-49.9, adult (Z68.42) Mood disorder ([facility])- Primary Unspecified episodic mood disorder LAMIN (generalized anxiety disorder) ([facility]) Generalized anxiety disorder Blood pressure elevated without history of HTN Mild persistent asthma, uncomplicated ([facility]) documented in this encounter [facility]* Diagnosis Mood disorder ([facility])- Primary Unspecified episodic mood disorder LAMIN (generalized anxiety disorder) ([facility]) Generalized anxiety disorder Blood pressure elevated without history of HTN [facility]* Diagnosis Right kidney mass- Primary Unspecified disorder of kidney and ureter Polyuria Hypokalemia Hypopotassemia Annual physical exam Routine general medical examination at a health care facility Hypersomnia- Primary Hypersomnia, unspecified Prediabetes Other abnormal glucose Fatty liver disease, nonalcoholic Right kidney mass Unspecified disorder of kidney and ureter Aspirin-exacerbated respiratory disease (AERD) ([facility]) Morbid obesity ([facility]) Morbid obesity Body mass index [BMI] 45.0-49.9, adult (Z68.42) Mood disorder ([facility])- Primary Unspecified episodic mood disorder LAMIN (generalized anxiety disorder) ([facility]) Generalized anxiety disorder Blood pressure elevated without history of HTN Benign essential hypertension ([facility])- Primary Essential hypertension, benign Palpitation Palpitations Attention deficit disorder (ADD) without hyperactivity Mood disorder ([facility]) Unspecified episodic mood disorder LAMIN (generalized anxiety disorder) ([facility]) Generalized anxiety disorder Annual physical exam Routine general medical examination at a health care facility [facility]* Diagnosis Vulvar itching [facility]* Diagnosis Irritant contact dermatitis due to other chemical products [facility] general Narrative - Reported* Type Description Date Medical History Seasonal Allergies Medical History glaucoma Medical History IBSD Medical History Asthma Surgical History Sinus Surgery x2 Surgical History PET Placement Surgical History Endoscopy Surgical History WISDOM TEETH REMOVED-REBEKAH 2015 Surgical History TONSILLECTOMY 2015 Surgical History TURBINOPLASTY x3 2015 Surgical History tonsillectomy and adenoidectomy Surgical History colonoscopy Surgical History septoplasty Surgical History polypectomy Hospitalization History See past surgical hx [employer] Other Hospital Discharge instructions* Attachments The following attachments cannot be sent through Care Everywhere. * Coronavirus Disease (COVID-19): General Info ([place]) * COVID-19: Taking Care of Yourself If You Have It: Video ([place]) * Nausea and Vomiting ([place]) * Diarrhea ([place]) [facility]charge [facility]* Attachments The following attachments cannot be sent through Care Everywhere. * Asthma: General Info ([place]) [facility] Phone: InstructionsNot on filedocumented in this encounter [facility] for referral (narrative)* Consultation (Routine) - Pending Review Specialty Diagnoses / Procedures Referred By Conthans wolf Referred To Contact Urology Diagnoses Right kidney mass Procedures DC OFFICE/OUTPATIENT NEW HIGH [facility] 60 MINUTES Zoran Flores MD [address] [place] [address] Referral ID Status Reason Start Date Expiration Date Visits Requested Visits Authorized [id number] Pending Review Specialty Services Required 08/22/2023 02/18/2024 1 1 [facility] (narrative)* Consultation (Routine) - Pending Review Specialty Diagnoses / Procedures Referred By Contac t Referred To Contact Urology Diagnoses Right kidney mass Procedures DC OFFICE/OUTPATIENT NEW HIGH [facility] 60 MINUTES Zoran Flores MD [address] [place] [address] Referral ID Status Reason Start Date Expiration Date Visits Requested Visits Authorized [id number] Pending Review Specialty Services Required 08/24/2023 02/20/2024 [...] Everywhere. * Coronavirus Disease (COVID-19): General Info ([place]) * Coronavirus Disease (COVID-19): Isolation ([place]) documented in this encounter Assessments Diagnosis COVID-19- Primary Advance Directives Documents on File Type Date Recorded Patient Alcoholism Worker Expl anation ACP-Advance Directive ACP-Power of Auto Wash Buffer Advance Directive Response Recorded Date/ Time Advance Directives No March 6:28pm Advance Directive Response Recorded Date/ Time Advance Directives No March 5:28pm Reason for Referral Specialty Diagnoses / Procedures Referred By Contac t Referred To Contact Diagnoses Chronic pansinusitis Multiple nasal polyps Michael Wiseman MD [address] [place] [address] Referral ID Status Reason Start Date Expiration Date Visits Requested Visits Authorized [id number] Authorized Patient Preference 10/14/2022 10/15/2023 3 3 Comments Chuy Shankar MD Summary Purpose Family History Relationship Condition Age at Onset Recorded Date/T palmer Not Specified Hepatitis Unknown Relationship Condition Age at Onset Recorded Date/T palmer mother Hepatitis Unknown Disorder of kidney Unknown father Cerebrovascular accident (CVA) Unknown brother Hypertension Unknown sister Malignant neoplasm Unknown Hypertension Unknown Relationship Condition Age at Onset Recorded Date/T palmer Not Specified Malignant neoplasm Unknown mother Hepatitis Unknown Disorder of kidney Unknown father Cerebrovascular accident (CVA) Unknown brother Hypertension Unknown sister Hypertension Unknown paternal grandfather Malignant neoplasm of prostate Un known Chief Complaint and Reason for Visit Chief Complaint right knee pain Chief Complaint congestion, headache Reason for Visit Contact with or expo sure to viral disease Chief Complaint congestion, headache [place] Reason for Visit Acute viral sinusiti s Contact with or exposure to viral disease Asthma BMI 50.0-59.9, adult IBS (irritable bowel syndrome) Obesity Prediabetes Vitamin D deficiency, unspecified Chief Complaint congestion, headache [place] WM[facility] Initial RD Reason for Visit Acute viral sinusiti s Contact with or exposure to viral disease Asthma BMI 50.0-59.9, adult IBS (irritable bowel syndrome) Obesity Prediabetes Vitamin D deficiency, unspecified Chief Complaint DIARRHEA ANYTHING SH E EATS GOES RIGHT THROUGH HER. Reason for Visit Diarrhea Nausea alone Chief Complaint DIARRHEA ANYTHING SH E EATS GOES RIGHT THROUGH HER. R19.5 Reason for Visit Diarrhea Nausea alone Chief Complaint Admit Date Diarrhea June 18, 2024 11:52am Diarrhea June 18, 2024 1:01pm Headaches July 13, 2024 11 :30am Additional Source Comments Reason for Visit (unrecogniz [...] Onset Date Comments Referral to Specialist 10/14/2022 Reason Onset Date Comments Med Refill 05/06/2024 Reason Comments Follow-up Psychological issues . Hypertension Reason Comments Hypertension Bp and heart rate ru nning high, heart palpitations. Reason Comments Med Refill Ordered Prescriptions (unrec ognized section and content) [...] dose, 5 years of Age or greater 0 (Given - Provid er: Awilda Leon RCP) [...] On Mon12/16/20 at 2245, For 1 dose 2313 (Given - Provid er: Nancy Jones RN) [...] Status: Inactive Member Role Status Dates Zoran Florse MD Primary Care Provider Active S tart: [...] Attending Provider Active Start: July 27, 2023 College Advisor Relationship Specialty Start Date End Date Heather Taylor MD [address] [place] [address]14 Physician Allergy Medicine 04/14/20 Michael Wiseman MD [address] [place] [address]30 Physician Otolaryngology 04/14/20 College Advisor Relationship Specialty Start Date End Date Heather Taylor MD [address] [place] [address] 81308 Physician Allergy Medicine 04/14/20 Michael Wiseman MD [address] [place] [address] 06593 Physician Otolaryngology 04/14/20 College Advisor Relationship Specialty Start Date End Date Heather Taylor MD [address] [place] [address] 51506 Physician Allergy Medicine 04/14/20 Michael Wiseman MD [address] [place] [address] 71036 Physician Otolaryngology 04/14/20 College Advisor Relationship Specialty Start Date End Date Heather Taylor MD [address] [place] [address] 23350 Physician Allergy Medicine 04/14/20 Michael Wiseman MD [address] [place] [address] 31463 Physician Otolaryngology 04/14/20 College Advisor Relationship Specialty Start Date End Date Heather Taylor MD [address] [place] [address] 45112 Physician Allergy Medicine 04/14/20 Michael Wiseman MD [address] [place] [address] 45782 Physician Otolaryngology 04/14/20 College Advisor Relationship Specialty Start Date End Date Heather Taylor MD [address] [place] [address] 63272 Physician Allergy Medicine 04/14/20 Michael Wiseman MD [address] [place] [address] 24046 Physician Otolaryngology 04/14/20 Team Status: Inactive Member Role Status Dates Zoran Flores MD Primary Care Provider Active Maribel Flanagan [employer] Attending Provider Active College Advisor Relationship Specialty Start Date End Date Zoran Flores MD [address] [phone] PCP - General Family Medicine 07/27/23 College Advisor Relationship Specialty Start Date End Date Heather Taylor MD [address] [place] [address]2548 Physician Allergy Medicine 04/14/20 Michael Wiseman MD [address] [place] [address] 26002 Physician Otolaryngology 04/14/20 Team Status: Inactive Member Role Status Dates Zoran Flores MD Primary Care Provider Active S tart: April 01, 2024 End: April 01, 2024 Radha Brandon DO Attending Provider Active St art: April 01, 2024 End: April 01, 2024 Team Status: Inactive Member Role Status Dates Zoran Flores MD Primary Care Provider Active S tart: April 15, 2024 End: April 15, 2024 Radha Brandon DO Attending Provider Active St art: April 15, 2024 End: April 15, 2024 College Advisor Relationship Specialty Start Date End Date Zoran Flores MD [address] [place] [phone] PCP - General Family Medicine 07/27/23 College Advisor Relationship Specialty Start Date End Date Zoran Flores MD [address] [place] [address] PCP - [facility] Family Medicine 07/27/23 College Advisor Relationship Specialty Start Date End Date Zoran Flores MD [address] [place] [phone] PCP - General Family Medicine 07/27/23 College Advisor Relationship Specialty Start Date End Date Zoran Flores MD [address] [place] [phone] PCP - General Family Medicine 07/27/23 College Advisor Relationship Specialty Start Date End Date Zoran Flores MD [address] [place] [phone] PCP - General Family Medicine 07/27/23 College Advisor Relationship Specialty Start Date End Date Zoran Flores MD [address] [place] [phone] PCP - General Family Medicine 07/27/23 Team Status: Inactive Member Role Status Dates Zoran Flores MD Primary Care Provider Active S tart: June 18, 2024 End: June 18, 2024 Radha Brandon DO Attending Provider Active St art: June 18, 2024 End: June 18, 2024 Team Status: Active Member Role Status Dates Zoran Flores MD Primary Care Provider Active S tart: June 18, 2024 Radha Brandon DO Attending Provider, Other Provider Active Start: June 18, 2024 Team Status: Inactive Member Role Status Dates Zoran Flores MD Primary Care Provider Active S tart: July 13, 2024 End: July 13, 2024 AVANI Pardo RN [employer] Attending Provider Active Start: July 13, 2024 End: July 13, 2024 College Advisor Relationship Specialty Start Date End Date Zoran Flores MD [address] [place] [address] PCP - General Family Medicine 02/22/24 INFORMATION SOURCE (unrecogn ized section and content) DATE CREATED AUTHOR 12/16/2022 [facility] DATE CREATED AUTHOR AUTHOR'S ORGANIZ ATION 04/24/2023 [facility] DATE CREATED AUTHOR AUTHOR'S ORGANIZ ATION 08/10/2023 [facility] DATE CREATED AUTHOR AUTHOR'S ORGANIZ ATION 09/12/2023 [facility] DATE CREATED AUTHOR AUTHOR'S ORGANIZ ATION 02/24/2024 [facility] DATE CREATED AUTHOR AUTHOR'S ORGANIZ ATION 03/23/2024 [facility] DATE CREATED AUTHOR AUTHOR'S ORGANIZ ATION 03/24/2024 [facility] DATE CREATED AUTHOR AUTHOR'S ORGANIZ ATION 06/25/2024 [facility] DATE CREATED AUTHOR AUTHOR'S ORGANIZ ATION 07/09/2024 [facility] EPIC Goals (unrecognized section and [...] BE BASED ON THE PRIMARY CLINICAL RECORDS. [facility] [employer] [facility]. provides no warranty or guarantee of the accuracy or completeness of information in this document.
--- NOTE | 2024-08-03 23:39 | ECG_ITS ---
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
[2024-08-03 23:40] VITALS: PULSE 108; O2SAT 97
[2024-08-03 23:42] VITALS: BP 127/97; PULSE 105; O2SAT 97
[2024-08-03 23:50] VITALS: PULSE 109; O2SAT 98
[2024-08-04] VITALS: PULSE 101; O2SAT 98
--- NOTE | 2024-08-04 00:32 | ED.CHESTPAI1 ---
HPI - Chest Pain General Chief Complaint: Chest Pain Stated Complaint: CHEST PAIN Time Seen by Provider: 08/03/24 23:35 Source: patient Mode of arrival: walk-in Limitations: no limitations History of Present Illness HPI narrative: This 29-year-old female with a history of tachycardia and asthma that was recently placed on Procardia presents for evaluation of vague chest pain that she has trouble describing as well as vague abdominal pain that she has trouble describing. Symptoms started yesterday. She has some nausea but no vomiting. She denies the possibility of . She does not smoke or vape. She denies any alcohol use. She states tonight at work she started feeling worse with tingling in her chest and had her friend bring her to the emergency department. She states her pulse has been all over the place running in the 140s to 160s. She states she is supposed to get a monitor technician but has not made the appointment to get it placed yet. She is allergic to NSAIDs but is taking a daily baby aspirin regimen. Earlier in the evening she was feeling dizzy and sweaty and took her glucose at work, she works at [employer], her glucose was in the 70s and she ate something and it went up into the 90s. She explained to the nurse putting in her IV that she also fell and had a closed head injury a week ago and is wondering if her symptoms may be related to that. Related Data Home Medications ?Medication ?Instructions ?Recorded ?Confirmed aspirin 325 mg capsule 325 mg PO DAILY 06/30/23 08/03/24 budesonide-formoterol HFA 160 2 inh inhalation Q12H 08/03/24 08/03/24 mcg-4.5 mcg/actuation aerosol inhaler (Symbicort) cetirizine 10 mg tablet 10 mg PO QDAY 08/03/24 08/03/24 cholecalciferol (vitamin D3) 50 2,000 unit PO QDAY 08/03/24 08/03/24 mcg (2,000 unit) tablet cholestyramine (with sugar) 4 gram 1 ea PO DAILY 08/03/24 08/03/24 oral powder epinephrine 0.3 mg/0.3 mL 0.3 ml subcut Q1H PRN anaphylaxis 08/03/24 08/03/24 injection, auto-injector lisdexamfetamine 20 mg capsule 20 mg PO DAILY 08/03/24 08/03/24 (Vyvanse) montelukast 10 mg tablet 10 mg PO DAILY 08/03/24 08/03/24 nifedipine 30 mg tablet,extended 30 mg PO DAILY 08/03/24 08/03/24 release 24 hr omeprazole 40 mg capsule,delayed 40 mg PO QDAY 08/03/24 08/03/24 release polyethylene glycol 3350 17 17 g PO DAILY PRN constipation 08/03/24 08/03/24 gram/dose oral powder Allergies Allergy/AdvReac Type Severity Reaction Status Date / Time azithromycin (From Zithromax Allergy Severe Unknown Verified 08/03/24 23:31 Z-Mayank) Sulfa (Sulfonamide Allergy Severe Unknown Verified 08/03/24 23:31 Antibiotics) egg Allergy Unknown Unknown Verified 08/03/24 23:31 ketorolac (From Toradol) Allergy Unknown Unknown Verified 08/03/24 23:31 Review of Systems ROS Status of ROS 10 or more systems reviewed and unremarkable except as noted in history and below PFSH PFS Social History Little interest or pleasure in doing things: not at all Feeling down, depressed, or hopeless: not at all Exam Narrative Exam Narrative: Vital signs and Nursing Notes reviewed: Patient is afebrile with a normal respiratory rate, she is mildly tachycardic with a pulse of 101, blood pressure is mildly elevated 127/97, she is not hypoxic with pulse ox of 98% on room air General: Overweight adult female, she is awake, alert, oriented, no acute distress, lying comfortably on the stretcher HEENT: Normocephalic atraumatic, mucous membranes are moist and pink, eyes are clear, normal conjunctiva, vision is grossly intact, posterior pharynx is normal in appearance. Chest: Lungs are clear to auscultation with good air entry, there is no wheezing rhonchi or rales appreciated no accessory muscle use, patient is speaking in complete sentences-no chest wall tenderness to palpation CVS: Regular rate and rhythm S1-S2, no murmurs rubs or gallops, pulses are brisk and equal bilaterally ABD: Soft, nondistended, nontender, no rebound guarding or rigidity, bowel sounds are normal, no pulsatile masses appreciated Extremities: Moving all extremities, no lower extremity tenderness or swelling noted, negative Homans' sign, pulses are brisk and equal bilaterally Skin: Normal in appearance without rash,pallor, petechiae or purpura Neuro: No focal deficits Constitutional Vital Signs, click to edit/add: Last Vital Signs Temp 98.6 F 08/03/24 23:31 Pulse 101 H 08/04/24 00:00 Resp 16 08/04/24 00:00 BP 127/97 H 08/03/24 23:42 Pulse Ox 98 08/04/24 00:00 O2 Del Method Room Air 08/03/24 23:31 Course Vital Signs Vital signs: Vital Signs Temperature 98.6 F 08/03/24 23:31 Pulse Rate 104 H 08/03/24 23:31 Respiratory Rate 16 08/03/24 23:31 Blood Pressure 146/107 H 08/03/24 23:31 Pulse Oximetry 98 08/03/24 23:31 Oxygen Delivery Method Room Air 08/03/24 23:31 Temperature 98.6 F 08/03/24 23:31 Pulse Rate 101 H 08/04/24 00:00 Respiratory Rate 16 08/04/24 00:00 Blood Pressure 127/97 H 08/03/24 23:42 Pulse Oximetry 98 08/04/24 00:00 Oxygen Delivery Method Room Air 08/03/24 23:31 MDM - Chest Pain MDM Narrative Medical decision making narrative: This 29 female, non-smoker who is on Procardia for tachycardia and is supposed to have a cardiac monitoring device placed presents for evaluation of elevated pulse and intermittent chest pain that is vague in nature also abdominal pain that is vague in nature associated with some mild nausea. She denies any dizziness or syncope. She did admit to the nurse doing her triage that she had fallen last week and struck her head. Her symptoms do not appear to be neuro and nature as she states for the past month she has been having change in her pulse and blood pressure with positional changes. I discussed POTS with her which she may have which will be better off evaluated after she has her cardiac monitoring device and is seen by cardiology. Her EKG today was a sinus tachycardia at 106 bpm. An IV was placed and she was medicated with IV fluids and Zofran. Her pulse was come down to 80. Her blood pressure is 127/87. Pulse ox is normal at 97% on room air. She has a normal white count and hemoglobin. Her electrolytes are normal. Her D-dimer and troponin are both normal. TSH is normal. 1 view chest x-ray was ordered and does not show any acute findings with a normal mediastinum, no pulmonary infiltrate or signs of failure. Lab Data Attestation: I reviewed the patient's lab results. Labs: Lab Results 08/03/24 Range/Units 23:50 WBC 8.2 (4.0-11.0) 10^3/uL RBC 4.70 (4.20-5.40) 10^6/uL Hgb 11.8 L (12.0-16.0) g/dL Hct 37.1 (36.0-48.0) % MCV 78.9 L (81.0-99.0) fL MCH 25.1 L (26.7-34.0) pg MCHC 31.8 (29.9-35.2) g/dL RDW 15.0 (11.0-15.0) % Plt Count 425 (150-450) 10^3/uL MPV 9.7 (9.5-13.5) fL Neut % (Auto) 62.5 (43.0-75.0) % Lymph % (Auto) 27.8 (20.5-60.0) % [place] % (Auto) 6.0 (1.7-12.0) % Eos % (Auto) 2.9 (0.9-7.0) % Baso % (Auto) 0.6 (0.2-2.0) % Neut # (Auto) 5.1 (1.4-6.5) 10^3/uL Lymph # (Auto) 2.3 (1.2-3.8) 10^3/uL [place] # (Auto) 0.5 (0.3-0.8) 10^3/uL Eos # (Auto) 0.2 (0.0-0.7) 10^3/uL Baso # (Auto) 0.1 (0.0-0.1) 10^3/uL Abs Immat Gran (auto) 0.02 (0.00-0.03) 10^3/uL Imm/Tot Granulo (auto) 0.2 (0.0-0.5) % D-Dimer 0.40 (<=0.59) mg/L FEU Sodium 138 (136-145) mmol/L Potassium 3.3 L (3.5-5.1) mmol/L Chloride 101 (98-107) mmol/L Carbon Dioxide 26.1 (21.0-32.0) mmol/L Anion Gap 14.2 BUN 8.0 (7.0-18.0) mg/dL Creatinine 0.96 (0.55-1.02) mg/dL Est GFR ( Amer) >60 (>=60 mL/min/1.73m^2) Est GFR (Non-Af Amer) >60 (>=60 mL/min/1.73m^2) BUN/Creatinine Ratio 8.3 Glucose 97 (74-106) mg/dL Calcium 9.1 (8.5-10.1) mg/dL Total Bilirubin 0.3 (0.2-1.0) mg/dL AST 26 (15-37) U/L ALT 43 (14-59) U/L Alkaline Phosphatase 100 (46-116) U/L Troponin I High Sens 4.9 (4.0-51.3) pg/mL Total Protein 7.9 (6.4-8.2) g/dL Albumin 3.8 (3.4-5.0) g/dL Globulin 4.1 g/dL Albumin/Globulin Ratio 0.9 Lipase 29.0 (16.0-77.0) U/L TSH 1.967 (0.358-3.740) uIU/mL ECG Data Attestation: I personally reviewed and interpreted this ECG as follows: (Sinus tachycardia at 106 bpm, normal axis, normal intervals, no acute ST segment elevation or T wave inversion) Heart Score History: Slightly/Non-Suspicious ECG: Normal Age: <45 years Risk Factors: No Risk Factors Troponin: <Normal Limit Total Heart Score Recommendations & Risks:: 0 Discharge Plan Discharge Chief Complaint: Chest Pain Clinical Impression: Atypical chest pain, Sinus tachycardia Prescriptions / Home Meds: No Action aspirin 325 mg capsule 325 mg PO DAILY budesonide-formoterol [Symbicort] 160-4.5 mcg/actuation HFA aerosol inhaler 2 inh INHALATION Q12H cetirizine 10 mg tablet 10 mg PO QDAY cholecalciferol (vitamin D3) 50 mcg (2,000 unit) tablet 2,000 unit PO QDAY cholestyramine (with sugar) 4 gram powder 1 ea PO DAILY epinephrine 0.3 mg/0.3 mL auto-injector 0.3 ml subcut Q1H PRN (Reason: anaphylaxis) lisdexamfetamine [Vyvanse] 20 mg capsule 20 mg PO DAILY montelukast 10 mg tablet 10 mg PO DAILY nifedipine 30 mg tablet extended release 24hr 30 mg PO DAILY omeprazole 40 mg capsule,delayed release(DR/EC) 40 mg PO QDAY polyethylene glycol 3350 17 gram/dose powder 17 g PO DAILY PRN (Reason: constipation) Print Language: [place] Island[place] Referrals: Zoran Christy MD [Primary Care Provider] - 1 week
[2024-08-04 00:36] LABS: Basophils Absolute Auto 0.1 10^3/uL (0.0-0.1); Basophils Percent Auto 0.6 % (0.2-2.0); Eosinophils Absolute Auto 0.2 10^3/uL (0.0-0.7); Eosinophils Percent Auto 2.9 % (0.9-7.0); Hematocrit 37.1 % (36.0-48.0); Hemoglobin 11.8 g/dL (12.0-16.0); Immature Granulocytes Abs Auto 0.02 10^3/uL (0.00-0.03); Immature Granulocytes Pct Auto 0.2 % (0.0-0.5); Lymphocytes Absolute Auto 2.3 10^3/uL (1.2-3.8); Lymphocytes Percent Auto 27.8 % (20.5-60.0); Mean Corpuscular HGB Conc 31.8 g/dL (29.9-35.2); Mean Corpuscular Hemoglobin 25.1 pg (26.7-34.0); Mean Corpuscular Volume 78.9 fL (81.0-99.0); Mean Platelet Volume 9.7 fL (9.5-13.5); Monocytes Absolute Auto 0.5 10^3/uL (0.3-0.8); Neutrophils Absolute Auto 5.1 10^3/uL (1.4-6.5); Neutrophils Percent Auto 62.5 % (43.0-75.0); Platelet Count 425 10^3/uL (150-450); White Blood Count 8.2 10^3/uL (4.0-11.0)
[2024-08-04] MEDS: 0.9 % SODIUM CHLORIDE 1,000 ML 1000 ML IV (00:36)
[2024-08-04 01:01] LABS: Alanine Aminotransferase 43 U/L (14-59); Albumin Globulin Ratio 0.9; Albumin Level 3.8 g/dL (3.4-5.0); Alkaline Phosphatase 100 U/L (46-116); Anion Gap 14.2; Aspartate Amino Transferase 26 U/L (15-37); BUN Creatinine Ratio 8.3; Bilirubin Total 0.3 mg/dL (0.2-1.0); Calcium 9.1 mg/dL (8.5-10.1); Carbon Dioxide 26.1 mmol/L (21.0-32.0); Chloride 101 mmol/L (98-107); Estimated GFR (African America >60 (>=60 mL/min/1.73m^2); Estimated GFR (Non-African Ame >60 (>=60 mL/min/1.73m^2); Globulin 4.1 g/dL; Glucose 97 mg/dL (74-106); Potassium 3.3 mmol/L (3.5-5.1); Sodium 138 mmol/L (136-145); Thyroid Stimulating Hormone 1.967 uIU/mL (0.358-3.740); Total Protein 7.9 g/dL (6.4-8.2); Troponin I High Sensitivity 4.9 pg/mL (4.0-51.3)
--- NOTE | 2024-08-04 01:09 | XR_ITS ---
The [address] [address] Patient Name: LILIANA RHODES MRN: [id number] date: 1995 Sex: F Assigned Patient Location: ER Current Patient Location: Accession/Order Number: [id number] Exam Date: 08/04/2024 01:12 Report Date: 08/04/2024 05:39 At the request of: BRAYDON MARKER Procedure: XR chest 1V EXAM: XR chest 1V HISTORY: CP tachycardia. COMPARISON: 04/02/2023. TECHNIQUE: AP chest x-ray. FINDINGS: Cardiac size appears within normal limits. Trachea is midline. No mediastinal widening. Lungs appear clear. No pneumothorax or effusion is identified. Osseous structures appear intact. XR/XR chest 1V IMPRESSION: No acute cardiopulmonary process is identified. Electronically authenticated by: MATEUS CARUSO Date: 08/04/2024 05:39
[2024-08-04 01:38] VITALS: BP 153/95; PULSE 87; O2SAT 98
== END 2024-08-04 01:40 | disposition home or self-care (01) ==
PROVIDERS: Emergency Provider Emergency Medicine; PCP Family Medicine
DX: R07.89 Other chest pain (principal); R00.0 Tachycardia, unspecified; J45.909 Unspecified asthma, uncomplicated
CPT/HCPCS: 36415; 71045; 80053; 83690; 84443; 84484; 85025; 85378; 93005; 96360; 99285

== ENCOUNTER 2024-09-27 11:44 | Outpatient (OUT) | payer MEDICAID, SELFPAY ==
[2024-09-27 12:38] LABS: Basophils Absolute Auto 0.1 10^3/uL (0.0-0.1); Basophils Percent Auto 0.8 % (0.2-2.0); Eosinophils Absolute Auto 0.4 10^3/uL (0.0-0.7); Eosinophils Percent Auto 4.1 % (0.9-7.0); Hematocrit 36.3 % (36.0-48.0); Hemoglobin 11.4 g/dL (12.0-16.0); Immature Granulocytes Abs Auto 0.03 10^3/uL (0.00-0.03); Immature Granulocytes Pct Auto 0.3 % (0.0-0.5); Lymphocytes Absolute Auto 2.3 10^3/uL (1.2-3.8); Mean Corpuscular HGB Conc 31.4 g/dL (29.9-35.2); Mean Corpuscular Hemoglobin 25.1 pg (26.7-34.0); Mean Corpuscular Volume 79.8 fL (81.0-99.0); Mean Platelet Volume 9.5 fL (9.5-13.5); Monocytes Absolute Auto 0.7 10^3/uL (0.3-0.8); Neutrophils Absolute Auto 6.4 10^3/uL (1.4-6.5); Neutrophils Percent Auto 64.8 % (43.0-75.0); Platelet Count 437 10^3/uL (150-450); Red Blood Count 4.55 10^6/uL (4.20-5.40); Red Cell Distribution Width 15.9 % (11.0-15.0); White Blood Count 9.9 10^3/uL (4.0-11.0)
[2024-09-27 12:47] LABS: Estimated Average Glucose 111 mg/dL; Glycohemoglobin A1C 5.5 % (4.5-6.2)
[2024-09-27 12:49] LABS: Alanine Aminotransferase 15 U/L (14-59); Albumin Globulin Ratio 0.9; Albumin Level 3.7 g/dL (3.4-5.0); Alkaline Phosphatase 102 U/L (46-116); Anion Gap 10.3; Aspartate Amino Transferase 13 U/L (15-37); BUN Creatinine Ratio 14.7; Bilirubin Direct 0.1 mg/dL (0.0-0.2); Bilirubin Total 0.2 mg/dL (0.2-1.0); Calcium 9.6 mg/dL (8.5-10.1); Carbon Dioxide 27.6 mmol/L (21.0-32.0); Chloride 105 mmol/L (98-107); Chol HDL Ratio 3.4; Cholesterol 179 mg/dL (<=200); Estimated GFR (African America >60 (>=60 mL/min/1.73m^2); Estimated GFR (Non-African Ame >60 (>=60 mL/min/1.73m^2); Globulin 3.9 g/dL; Glucose 110 mg/dL (74-106); HDL Cholesterol 53 mg/dL (40-60); LDL Cholesterol Calculated 112.4 mg/dL; Potassium 3.9 mmol/L (3.5-5.1); Sodium 139 mmol/L (136-145); TSH W/ REFLEX FT4 1.025 uIU/mL (0.358-3.740); Total Protein 7.6 g/dL (6.4-8.2); Triglycerides 68 mg/dL (<=150); VLDL CHOLESTEROL 13.6 mg/dL
== END 2024-09-27 11:45 | disposition home or self-care (01) ==
PROVIDERS: PCP Family Medicine; Visit Provider Family Medicine
DX: Z00.00 Encounter for general adult medical examination without abnormal findings (principal)
CPT/HCPCS: 36415; 80048; 80061; 80076; 83036; 84443; 85025

== ENCOUNTER 2024-10-13 20:51 | Emergency (ER) | payer MEDICAID, SELFPAY ==
[2024-10-13 20:55] VITALS: BP 170/106; PULSE 106; O2SAT 100; BMI 44.1
--- NOTE | 2024-10-13 20:55 | ECG_ITS ---
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 Measurements Intervals [place] Rate: 98 P: 26 [place]: 136 QRS: 51 QRSD: 90 T: 11 QT: 330 QTc: 386 Interpretive Statements 1100 Sinus rhythm 4068 Nonspecific [place] abnormality Abnormal ECG Compared to ECG 08/03/2024 23:39:15 No significant change Electronically Signed On 10-14-2024 7:14:09 EDT by HOLLIE RAY M.D.
--- OUTSIDE RECORDS SUMMARY | 2024-10-13 20:57 | XMS_ITS | CCD ---
Author Organization [facility] Care Team Providers Care Rod Mill Tender Name Role Phone Zoran Flores Primary Care Provider [phone] Heather Taylor MD Unavailable [phone] Michael Wiseman MD Unavailable Heather Taylor MD Unavailable Michael Wiseman MD Unavailable Heather Taylor MD Unavailable Michael Wiseman MD Unavailable SANDRA, DR ZORAN Baez Consulting Unavailable NADERER, DR ZORAN Baez Primary Care Unavailable NADERER, DR ZORAN Baez Admitting Unavailable NADERER, DR ZORAN Baez Attending Unavailable NADERER, DR ZORAN Baez Primary Care Unavailable MISC, [...] Consulting Unavailable Maribel Flanagan Unavailable MD Zoran Folres Primary Care Provider [phone] CHELY Flanagan Attending Provider ZORAN FLORES Primary Care UnavailJeremiah Bose Unavailable Zoran Flores MD Primary Care Provider URSULA MCGINNIS Attending Unavailable CASSIE JUARES Referring Unavail able SANDRA, ZORAN Primary Care Unavailable CASSIE JUARES Attending Unavailable ZORAN FLORES Referring Unavailable NADEREDel, ZORAN Primary Care Unavailable LYNDSAY JETT Attending Unavailable ZORAN FLORES Referring Unavailable ZORAN FLORES Primary Care Unavailable CASSIE JUARES Referring Unavailable SANDRA, ZORAN Primary Care Unavailable LYNDSAY JETT Referring Unavailable SANDRA, ZORAN Primary Care Unavailable MD Zoran Flores Primary Care Provider [phone] Ly, DO Radha L Attending Provider [phone] Unavailable Primary Care Provider Unavailabl e Zoran Flores Primary Care Unavailable Ly, Radha L Attending Unavailable Ly, Radha L Admitting Unavailable Ly, Radah L Attending Unavailable Ly, Radha L Admitting Unavailable Naddemetri, Zoran Primary Care Unavailable Zoran Flores MD Primary Care Provider [phone] Ly DO, Radha Odilia Attending Provider Zoran Flores MD Primary Care Provider Zoran Flores MD Primary Care Provider [phone] ZORAN FLORES Attending Unavailable ZORAN FLORES Attending Unavailable ZORAN FLORES Attending Unavailable SHAIKH JARAMILLO Attending Unavailable NADEREDel, ZORAN Attending Unavailable SANDRA, ZORAN Attending Unavailable Allergies Allergy Classification Reported Allergen(s) Allergy Type Date of Onset Reaction(s) Facility Pollen (4 sources) bee pollen Substance Allergy 06-10-20 15 Itching [facility] Sulfonamides (antibiotic) (4 sources) Sulfonamides (Antibiotic) Drug Allergy 06-10-20 15 Nausea And Vomiting [facility] (2 sources) bee pollen Propensity to adverse reactions to drug 06-10-20 15 Itching [facility] Work Phone: (2 sources) Sulfonamides (Antibiotic) Propensity to adverse reactions to drug 06-10-20 15 Nausea And Vomiting [facility] Work Phone: (20 sources) [place]-Containing Products Propensity to adverse reactions to drug 06-10-20 15 Nausea And Vomiting, Nausea Only [employer] Phone: (7 sources) Eggs Or Egg-Derived Products Propensity to adverse reactions to drug 06-10-20 15 Nausea And Vomiting, Unknown [employer] Phone: (9 sources) Other; Translations: [OTHER] Propensity to adverse reactions 06-10-20 15 Itching [employer] [employer] Phone: (5 sources) Yeast-Related Products Propensity to adverse reactions to drug 06-10-20 15 Other (See Comments) [employer] Phone: (8 sources) Bee pollen; Translations: [BEE POLLEN] Drug Allergy 12-17-19 17 Itching [facility] (15 sources) [place] Oil; Translations: [CORN OIL] Drug Allergy 12-17-19 17 [facility] (5 sources) cultivated mushroom extract Drug Allergy 10-24-19 19 Nausea [facility] (2 sources) Lactose; Translations: [LACTOSE] Drug Allergy 10-24-19 19 Vomiting [facility] (8 sources) sulfaSALAzine; Translations: [SULFASALAZINE] Drug Allergy 12-17-19 17 [facility] (20 sources) WHEAT DEXTRIN Drug Allergy 12-08-19 19 [facility] Work Phone: (8 sources) [place]-Related Products Propensity to adverse reactions to drug [...] reactions to drug 10-24-19 19 Vomiting [facility] (20 sources) Mushroom Propensity to adverse reactions to drug 10-24-19 19 Nausea, Nausea Only [facility] (7 sources) Pollen Propensity to adverse reactions to drug 06-10-20 15 Itching [facility] (20 sources) Sulfasalazine Propensity to adverse reactions to drug 12-17-19 17 [facility] (20 sources) Sulfonamides (Antibiotic) Propensity to adverse reactions to drug 06-10-20 15 GI intolerance, Hives, Itching, Nausea And Vomiting, Unknown [facility] (2 sources) Abdon albicans allergenic extract Drug Allergy 01-14-20 13 [facility] (2 sources) corn extract Drug Allergy 01-14-20 13 [facility] (10 sources) egg extract; Translations: [EGG] Drug Allergy 02-20-20 16 sick to stomach [facility] (2 sources) Sulfonamides (Antibiotic) Drug allergy (disorder) 01-14-20 13 [facility] (2 sources) Wheat preparation Drug Allergy 01-14-20 13 [facility] (2 sources) Misc-Food; Translations: [Misc-Food] Food allergy (disorder) 01-14-20 13 [facility] (2 sources) Egg Propensity to adverse reactions Unknown [employer] Other (2 sources) Sulfacetamide / Sulfur Drug Allergy pt doesn't remember [employer] Other (13 sources) Sulfonamides (Antibiotic); Translations: [SULFA (SULFONAMIDE ANTIBIOTICS)] Allergy to substance 08-29-19 14 Vomiting [facility] (15 sources) Azithromycin Drug Allergy 11-17-19 23 [facility] (15 sources) Sulfamethoxazole / Trimethoprim Drug Allergy 11-30-19 23 Unknown [facility] (4 sources) Mushroom (edible); Translations: [MUSHROOM] Propensity to adverse reactions to drug (disorder) 06-21-20 19 [facility] Other [place] [facility] (4 sources) Sulfacetamide Drug Allergy 09-21-19 24 pt doesn't remember [facility] (4 sources) Sulfur Drug Allergy 09-21-19 24 pt doesn't remember [facility] (11 sources) Egg Derived; Translations: [EGG DERIVED] Allergy to substance 12-17-19 17 Nausea [facility] (7 sources) Ketorolac; Translations: [ketorolac] Drug Allergy 10-24-19 24 Itching [facility] (7 sources) Abdon albicans allergenic extract; Translations: [YEAST EXTRACT] Drug Allergy 12-17-19 17 Other (See Comments) [facility] (7 sources) Gluten; Translations: [GLUTEN] Propensity to adverse reactions to food (disorder) 06-21-20 [facility] (7 sources) Lactase; Translations: [LACTASE] Drug Allergy 06-21-20 [facility] (4 sources) NSAIDS (Non-Steroidal Anti-Inflamma; Translations: [NSAIDS (Non-Steroidal Anti-Inflamma] Allergy to substance 04-09-20 I just can't take those [facility] (13 sources) Ketorolac trometamol Propensity to adverse reactions 11-22-19 Itching [facility] (13 sources) Egg-Derived Products Drug Allergy 06-10-20 Nausea And Vomiting, Unknown [facility] (1 source) egg extract Drug Allergy 06-18-20 [facility] Repository NEGATED: Highlighted row has been ruled out!Unclassified (3 sources) Other Propensity to adverse reactions 06-10-20 15 Itching [facility] Medications Current Medications Medication Drug Class(es) [...] as needed for Pain . 0 Active albuterol sulfate HFA 108 (90 Base) MCG/ACT inhaler 2 puff (1 source) Start: 2020 albuterol sulfate HFA 108 (9 0 Base) MCG/ACT inhaler 2 puff aspirin 325 mg oral tablet (20 sources) Platelet Aggregation Inhibitor, Nonsteroidal Anti-inflammatory Drug Start: 2023 take 1 tablet by mouth once daily Aspirin 325 mg tablet Active 325 MG PO Daily September 21, [...] 30.6 Inhaler 3 06/18/2020 Active Start: 01-18-2020 End: 09-22-2024 take 1 puff(s) by inhalation twice daily Budesonide-Formoterol 160-4.5 mcg/actuation HFA aerosol inhaler Discontinued 2 PUFF INHALATION Twice daily January 18, 2020 12:00am September 22, 2024 12:54pm take 2 puff(s) by in halation twice daily budesonide-formoterol (SYMBICORT) 160-4.5 MCG/ACT AERO Inhale 2 puffs into the lungs 2 times daily 0 Active cetirizine hydrochloride 10 mg oral tablet (20 sources) Histamine-1 Receptor Antagonist Start: 09-22-2024 Cetirizine 10 mg tablet Active MG PO September 22, 2024 12:00am Start: 10-10-2023 take 1 tablet by dana once daily cetirizine (ZyrTEC) 10 MG tablet Indications: Polypoid sinus degeneration Take 1 tablet (10 mg) by mouth Daily 90 tablet 3 10/10/2023 Active Start: 09-21-2023 End: 07-13-2024 take 1 capsule by mouth once daily Cetirizine (Zyrtec) 10 mg capsule Discontinued 10 MG PO Daily September 21, 2023 12:00am July 13, 2024 12:33pm Start: 10-11-2019 End: 08-09-2023 take 1 tablet [...] take 1 tablet by mouth once daily Cholecalciferol (Vitamin D3) (Vitamin D3) 50 mcg (2,000 unit) tablet Active 2000 UNIT PO Daily December 11, 2023 3:15pm Start: 09-21-2023 End: 12-11-2023 Cholecalciferol (Vitamin D3) (Vitamin D3) 50 mcg (2,000 unit) tablet Discontinued PO September 21, 2023 12:00am December 11, 2023 3:16pm Start: 04-10-2023 take 1 tablet by dana in the morning cholecalciferol (Vitamin D-3) 50 MCG (1999 UT) tablet Take 50 mcg by mouth in the morning. 04/10/2023 Active take 1 capsule by mo ut in the morning cholecalciferol, vitamin D3, 2,000 units capsule Take 1 capsule (2,000 Units total) by mouth in the morning. Active take 1 capsule by mo uth every twenty-four hours Vitamin D3 50 MCG (1999 UT) 1 capsule Orally Once a day Active cholestyramine resin 4000 mg powder for oral suspension (12 sources) Bile Acid Sequestrant Start: 06-26-2024 End: 09-06-2024 take 4 g by mouth in the morning cholestyramine (Questran) 4 GM/DOSE powder Take 4 g by mouth in the morning and 4 g in the evening. Take with meals. 06/26/2024 09/06/2024 Discontinued Start: 06-26-2024 End: 09-22-2024 take 1 dose by mouth once daily Cholestyramine (With Sugar) 4 gram powder Discontinued 4 GM PO Daily 378 June 26, 2024 1:00am September 22, 2024 12:54pm administer w/meal; avoid other meds within 1hr before or 4-6hr after dose Start: 06-26-2024 take 1 dose by mouth once daily Cholestyramine (With Sugar) 4 gram powder Active 4 GM PO Daily 378 June 26, 2024 12:00am administer w/meal; avoid other meds within 1hr before or 4-6hr after dose Start: 04-01-2024 End: 04-09-2024 take 1 dose by mouth twice daily Cholestyramine (With Sugar) 4 gram powder Discontinued 4 GM PO Twice daily 378 April 01, 2024 12:00am April 09, 2024 1:58pm administer w/meal; avoid other meds within 1hr before or 4-6hr after dose clobetasol propionate 0.5 mg/ml topical cream (3 sources) Corticosteroid Start: 03-21-2024 clobetasoL (TE MOVATE) 0.05 % cream Indications: Vulvar itching Apply 1 Application topically in the morning and 1 Application before bedtime. 30 g 03/21/2024 Active [id number] 0.3 ml EPINEPHrine 1 mg/ml auto-injector (20 [...] muscle As needed for emergencies 0 Active lisdexamfetamine dimesylate 30 mg oral capsule (7 sources) Central Nervous System Stimulant Start: 08-26-2024 End: 09-25-2024 Lisdexamfetamine (Vyvanse) 30 mg capsule Active MG PO September 22, 2024 12:00am Start: 07-23-2024 End: 08-22-2024 take 1 capsule by mouth in the morning lisdexamfetamine (Vyvanse) 20 MG capsule Indications: Attention deficit disorder (ADD) without hyperactivity Take 1 capsule (20 mg) by mouth in the morning. 30 capsule 07/23/2024 08/22/2024 Active Start: 07-08-2024 End: 08-07-2024 take 1 capsule by mouth in the morning lisdexamfetamine (Vyvanse) 10 MG capsule Indications: Attention deficit disorder (ADD) without hyperactivity Take 1 capsule (10 mg) by mouth in the morning. 30 capsule 07/08/2024 08/07/2024 Active meclizine hydrochloride 25 mg oral tablet (3 sources) Antiemetic Start: 08-07-2024 take 1 tablet by mouth four times daily as needed for dizziness meclizine (Antivert) 25 MG tablet Indications: Lightheaded Take 1 tablet (25 mg) by mouth 4 (four) times a day as needed for dizziness 30 tablet 2 08/07/2024 Active methylPREDNISolone 4 mg oral tablet (2 sources) Corticosteroid Start: 10-20-2020 End: 10-26-2020 methylPREDNISolone (MEDROL, AL,) 4 MG tablet Take by mouth. 1 kit 0 10/20/2020 10/26/2020 Active montelukast 10 mg oral tablet (20 sources) Leukotriene Receptor Antagonist Start: 03-20-2017 End: 10-24-2023 take 1 tablet by mouth at bedtime montelukast (Singulair) 10 MG tablet Indications: Mild persistent asthma, uncomplicated (CMS/HCC) Take 1 tablet (10 mg) by mouth at bedtime 30 tablet 5 05/06/2024 Active End: 09-06-2024 montelukast (Singulair) 4 MG chewable tablet Chew 4 mg at bedtime. 09/06/2024 Discontinued Singulair Active mupirocin 0.02 mg/mg topical ointment (8 sources) RNA Synthetase Inhibitor Antibacterial Start: 06-23-2021 mupirocin (BACTROBAN) 2 % ointment Apply topically 2 times daily. 15 g 2 06/23/2021 Active Niacin / Simvastatin (2 sources) HMG-CoA Reductase Inhibitor, Nicotinic Acid Simcor Active NIFEdipine 30 mg osmotic 24 hr extended release oral tablet (7 sources) Dihydropyridine Calcium Channel Bessy Start: 09-22-2024 take 1 tablet by mouth every twenty-four hours Nifedipine 30 mg tablet extended release 24hr Active MG PO September 22, 2024 12:00am Start: 07-08-2024 take 1 tablet by dana once daily NIFEdipine XL (Procardia XL) 30 [...] capsule (20 sources) Proton Pump Inhibitor Start: take 1 capsule by mouth twice daily omeprazole (PriLOSEC) [address] capsule Indications: Chronic superficial gastritis without bleeding , Atrophic gastritis TAKE 1 CAPSULE BY MOUTH TWICE A DAY 180 capsule 3 02/05/2024 Active Start: 10-24-2023 take 1 capsule by mo [facility] once daily Omeprazole 40 mg capsule,delayed release(DR/EC) Active 40 MG PO Daily October 24, 2023 12:00am Start: 09-21-2023 End: 10-24-2023 Omeprazole 40 mg capsule,del ayed release(DR/EC) Discontinued MG PO September 21, 2023 12:00am October 24, 2023 3:18pm Start: 09-21-2023 End: 10-24-2023 Omeprazole Discontinued MG P O September 21, 2023 12:00am October 24, 2023 3:18pm Start: 02-01-2023 take 1 capsule by mo [facility] in the morning omeprazole (PriLOSEC) [address] capsule Take 40 mg by mouth in the morning and 40 mg before bedtime. 0 02/01/2023 Active Start: 05-19-2017 End: 07-20-2017 Omeprazole 40 mg capsule,del ayed release(DR/EC) Discontinued 40 MG PO May 19, 2017 1:00am July 20, 2017 8:02am take 1 capsule by mo uth in the morning omeprazole (PriLOSEC) 20 mg capsule Take 1 capsule (20 mg total) by mouth in the morning. Active ondansetron 4 mg disintegrating oral tablet (10 sources) Serotonin-3 Receptor Antagonist Start: 10-26-2020 End: [...] as needed for nausea 15 5 March 20, 2017 12:00am March 24, 2017 12:00am March 25, 2017 12:02am OXcarbazepine 150 mg oral tablet (3 sources) Anti-epileptic Agent Start: 09-22-2024 Oxcarbaze pine 150 mg tablet Active MG PO September 22, 2024 12:00am Start: 09-06-2024 take 1 tablet by dana th in the morning OXcarbazepine (Trileptal) 150 MG tablet Indications: Mood disorder (CMS/HCC) Take 1 tablet (150 mg) by mouth in the morning and 1 tablet (150 mg) before bedtime. 60 tablet 5 09/06/2024 Active Start: 09-06-2024 take 1 tablet by dana th in the morning OXcarbazepine (Trileptal) 150 MG tablet Indications: Mood disorder (CMS/HCC) Take 1 tablet (150 mg) by mouth in the morning and 1 tablet (150 mg) before bedtime. 60 tablet 5 09/06/2024 Active pantoprazole 40 mg oral granules (4 sources) Proton Pump Inhibitor Start: 10-26-2020 take 1 dose by mouth once daily before breakfast pantoprazole sodium (PROTONIX) 40 MG PACK packet Take 1 packet by mouth every morning (before breakfast) 30 each 3 10/26/2020 Active predniSONE 10 mg oral tablet (20 sources) Start: 03-30-2024 End: 08-07-2024 take 1 tablet by mouth once daily predniSONE (Deltasone) 10 MG tablet Take 10 mg by mouth Daily 03/30/2024 08/07/2024 Discontinued Start: 09-21-2023 End: 10-24-2023 take 1 tablet by mouth twice daily Prednisone 20 mg tablet Discontinued 20 MG PO Twice daily 10 5 September 21, 2023 12:00am October 24, 2023 [...] 2020 7:47pm administer with food or milk triamcinolone acetonide 1 mg/ml topical cream (1 source) Corticosteroid Start: 2024 End: 02-29-2024 triamcinolone (KENALOG) 0.1 % cream Indications: Irritant contact dermatitis due to other chemical products Apply 1 Application topically once daily for 7 days. Thin layer to affected area daily for one week 30 g 2024 02/29/2024 Active vitamin B12 (6 sources) Vitamin B12 Start: 06-05-2024 take 1 tablet by mouth once daily cyanocobalamin (vitamin B-12) Active 1 TAB PO Daily June 05, 2024 1:00am Start: 06-05-2024 take 1 tablet by dana th once daily cyanocobalamin (vitamin B-12) Active 1 TAB PO Daily June 05, 2024 12:00am take 1 tablet by dana th in the morning cyanocobalamin (vitamin B-12) 50 mcg tablet Take 1 tablet (50 mcg total) by mouth in the morning. Active Completed/Discontinued Medications Medication Drug Class(es) Dates Sig (Normalized) Sig (Original) acetaminophen 325 mg oral tablet (1 source) Start: 02-18-2021 End: 02-18-2021 acetaminophen (TYLENOL) tablet 650 mg [id number] 200 actuat albuterol 0.09 mg/actuat metered dose inhaler (20 sources) beta2-Adrenergic Agonist Start: 12-11-2023 End: 09-22-2024 take 1 puff(s) by inhalation every four to six hours as needed for wheezing Albuterol Sulfate 90 mcg/actuation HFA aerosol inhaler Discontinued 2 PUFF INHALATION EVERY 4-6 HOURS as needed for shortness of breath or wheezing December 11, 2023 3:14pm September 22, 2024 12:54pm Start: 09-21-2023 End: 12-11-2023 Albuterol Sulfate 90 mcg/act uation HFA aerosol inhaler Discontinued INHALATION September 21, 2023 12:00am December 11, 2023 3:16pm Start: 01-23-2021 take 2 puff(s) by mo uth every four hours as needed albuterol (PROVENTIL HFA) INHALATION HFA inhaler (VENTOLIN,PROAIR,PROVENTIL) 90mcg TAKE 2 PUFFS BY MOUTH EVERY 4 HOURS NEEDED 01/23/2021 Active Start: 12-16-2020 albuterol (PRO VENTIL) nebulizer solution 2.5 mg Start: 11-26-2019 End: 2024 take 2 puff(s) by mouth every four hours as needed for wheezing albuterol (PROVENTIL HFA;VENTOLIN HFA) 90 mcg/actuation inhaler TAKE 2 PUFFS BY MOUTH EVERY 4 HOURS NEEDED FOR WHEEZING 18 Inhaler 5 11/26/2019 2024 Discontinued (Duplicate order) Start: 09-01-2019 take 2 puff(s) by in [...] as needed for Wheezing 0 Active albuterol 0.833 mg/ml / ipratropium bromide 0.167 mg/ml inhalation solution (1 source) Anticholinergic, beta2-Adrenergic Agonist Start: 12-16-2020 End: 12-16-2020 ipratropium-albuterol (DUONEB) nebulizer solution 1 ampule Start: 12-16-2020 End: 12-16-2020 ipratropium-albuterol (DUONE B) nebulizer solution 1 ampule Albuterol Sulfate 90 mcg/actuation HFA aerosol inhaler (2 sources) Start: 09-08-2018 End: 01-18-2020 Albuterol Sulfate 90 mcg/actuation HFA aerosol inhaler Discontinued 2 INH INHALATION Q4H as needed for shortness of breath or wheezing September 08, 2018 1:00am January 18, 2020 7:47pm administer with spacer Start: 09-08-2018 End: 01-18-2020 Albuterol Sulfate 90 mcg/act uation HFA aerosol inhaler Discontinued 2 INH INHALATION [...] oral tablet (8 sources) Thiazide-like Diuretic, beta-Adrenergic Bessy Start: 01-02-2024 End: 07-08-2024 take 1 tablet by mouth once daily atenolol-chlorthalidone (Tenoretic 50) 50-25 MG tablet Indications: Primary hypertension (CMS/HCC) Take 1 tablet by mouth Daily 30 tablet 1 01/02/2024 07/08/2024 Discontinued atropine sulfate 0.025 mg / diphenoxylate hydrochloride 2.5 mg oral tablet (8 sources) Anticholinergic, Cholinergic Muscarinic Antagonist, Antidiarrheal Start: 03-20-2017 End: 07-20-2017 take 8 tablets by mouth once as needed for diarrhea Diphenoxylate-Atropine (Lomotil) 2.5-0.025 mg tablet Discontinued 2 TAB PO .q 8 as needed for diarrhea March 20, 2017 12:00am July 20, 2017 8:02am cephalexin 500 mg oral tablet (8 sources) Cephalosporin Antibacterial Start: 01-18-2020 End: 09-21-2023 take 1 tablet by mouth twice daily Cephalexin 500 mg tablet Discontinued 500 MG PO Twice daily 04 13January 18, 2020 12:00am September 21, 2023 9:47am dicyclomine hydrochloride 10 mg oral capsule (8 sources) Anticholinergic Start: 03-20-2017 End: 07-20-2017 take 2 capsules by mouth every eight hours as needed Dicyclomine (Bentyl) 10 mg capsule Discontinued 20 MG PO Q8H as needed for abdominal discomfort March 20, 2017 6:56pm July 20, 2017 8:02am Norethindrone-E.E stradiol-Iron (10 sources) Estrogen Start: 03-20-2017 End: 09-21-2023 take 1 tablet by mouth once daily Norethindrone-E.Estradiol- Iron 1 mg-10 mcg (24)/10 mcg (2) tablet Discontinued 1 TAB PO Daily March 20, 2017 12:00am September 21, 2023 9:48am Start: 03-20-2017 End: 09-21-2023 take 1 tablet by mouth once daily Norethindrone-E.Estradiol-Iron 1 mg-10 m cg (24)/10 mcg (2) tablet Discontinued 1 TAB [...] tablet 6 08/17/2016 10/19/2020 Discontinued (LIST CLEANUP) ibuprofen 800 mg oral tablet (6 sources) Nonsteroidal Anti-inflammatory Drug Start: 07-13-2024 End: 09-22-2024 take 1 tablet by mouth every eight hours as needed for pain Ibuprofen 800 mg tablet Discontinued 800 MG PO Every 8 hours as needed for pain July 13, 2024 1:00am September 22, 2024 12:40pm take 1 tablet by dana th every six hours as needed for pain ibuprofen (ADVIL;MOTRIN) 800 MG tablet T ismael 800 mg by mouth every 6 hours as needed for Pain 0 Active lamoTRIgine 25 mg oral tablet (6 sources) Mood Stabilizer, Anti-epileptic Agent Start: 04-29-2024 End: 07-08-2024 take 1 [...] 04/05/2024 Active loratadine 10 mg oral tablet (9 sources) Start: 03-20-2017 End: 09-21-2023 take 1 tablet by mouth once daily Loratadine 10 mg tablet Discontinued 1 TAB PO Daily March 20, 2017 12:00am September 21, 2023 9:47am 24 hr metFORMIN hydrochloride 500 mg extended release oral tablet (10 sources) Biguanide Start: 11-23-2023 End: 12-11-2023 take 2 tablets by mouth twice daily Metformin 500 mg tablet extended release 24 hr Discontinued 0 .ROUTE .COMPLEX 360 November 23, 2023 4:54pm December 11, 2023 3:16pm TAKE 2 TABLETS BY MOUTH TWICE A DAY FOR 30 DAYS Start: 10-24-2023 End: 11-23-2023 Metformin 500 mg tablet exte nded release 24 hr Discontinued 1000 MG PO Twice daily 120 October 24, 2023 12:00am November 23, 2023 4:54pm Start: 10-24-2023 End: 11-23-2023 take 1000 mg by mouth twice daily Metformin Discontinued 1000 MG PO Twice daily 120 October 24, 2023 12:00am November 23, 2023 4:54pm metroNIDAZOLE 500 mg oral tablet (2 sources) Nitroimidazole Antimicrobial Start: 04-22-2024 End: 06-05-2024 take 1 tablet by mouth three times daily Metronidazole 500 mg tablet Discontinued 500 MG PO Three times daily 42 14 April 22, 2024 12:00am June 05, 2024 1:36pm ofloxacin 3 mg/ml otic solution (8 sources) Quinolone Antimicrobial Start: 08-23-2018 End: 08-30-2018 Ofloxacin 0.3 % drops Discontinued 5 DROPS EAR-LEFT Daily 5 7 August 23, 2018 1:00am August 29, 2018 1:00am August 30, 2018 1:01am Start: 08-23-2018 End: 08-30-2018 Ofloxacin Discontinued 5 KELLIE PS EAR-LEFT Daily 5 7 August 23, 2018 1:00am August 30, 2018 1:01am oseltamivir 75 mg oral capsule (8 sources) Neuraminidase Inhibitor Start: 09-08-2018 End: 01-18-2020 take 1 capsule by mouth every twelve hours Oseltamivir (Tamiflu) 75 mg capsule Discontinued 75 MG PO Q12H 10 September 08, 2018 1:00am January 18, 2020 7:47pm phenazopyridine hydrochloride 200 mg oral tablet (8 sources) Start: 01-18-2020 End: 09-21-2023 take 1 tablet by mouth three times daily at mealtime Phenazopyridine 200 mg tablet Discontinued 200 MG PO Three times daily as needed for urinary retention 10 January 18, 2020 12:00am September 21, 2023 9:48am administer with a full glass of water after each meal polyethylene glycol 3350 96855 mg powder for oral solution (16 sources) Osmotic Laxative Start: 09-22-2024 End: 09-22-2024 Polyethylene Glycol 3350 17 gram/dose powder Discontinued GM PO September 22, 2024 12:00am September 22, 2024 12:54pm Start: 08-01-2024 take 6-8 [oz_av] by mouth once daily polyethylene glycol, PEG, 3350 (Glycolax) 17 GM/SCOOP powder Indications: Constipation, unspecified , Constipation TAKE 1 DOSE IN 6-8 OZ OF LIQUID BY MOUTH ONCE DAILY 510 g 2 08/01/2024 Active Start: 02-12-2024 take 6-8 [oz_av] by mouth [...] ONCE DAILY 510 g 2 08/07/2023 Active 50 ml sodium chloride 9 mg/m l injection (2 sources) Start: 10-26-2020 End: 10-26-2020 0.9 % sodium chloride bolus Start: 10-25-2020 End: 10-26-2020 0.9 % sodium chloride infusi on sulfamethoxazole 800 mg / trimethoprim 160 mg oral tablet (1 source) Dihydrofolate Reductase Inhibitor Antibacterial, Sulfonamide Antimicrobial Start: 07-13-2024 End: 09-22-2024 take 1 tablet by mouth twice daily Sulfamethoxazole-Trimethoprim (Bactrim Ds) 800-160 mg tablet Discontinued 1 TAB PO Twice daily 14 July 13, 2024 1:00am September 22, 2024 12:40pm TB Test (2 sources) Start: 08-21-2019 TB Test Aug, 0.1 mL vancomycin 125 mg oral capsule (2 sources) Glycopeptide Antibacterial Start: 04-16-2024 End: 04-22-2024 take 1 capsule by mouth four times daily Vancomycin (Vancocin) 125 mg capsule Discontinued 125 MG PO Four times daily 56 14 April 16, 2024 12:00am April 22, 2024 3:06pm Problems Active Problems Problem Classification Problem Date Documented Da te Episodic/Chronic Abdominal pain (15 sources) Left upper quadrant pain; Translations: [Left upper quadrant pain] Onset: 06-21-2019 03-20-2017 Episodic Comment on above: Problem List clean-u p per request of Phys. EHR Cmte Acute and chronic tonsillitis (13 sources) Chronic adenotonsillitis; Translations: [Chronic tonsillitis and adenoiditis] Onset: 06-18-2015 06-18-2015 Chronic Allergic reactions (11 sources) Allergy to food; Translations: [Allergy to other foods] Onset: 02-20-2019 02-20-2019 Episodic Anxiety disorders (20 sources) Anxiety; Translations: [Anxiety disorder, unspecified] Onset: 06-27-2023 Resolved: 07-08-2024 06-27-2023 Chronic Asthma (20 sources) Exacerbation of intermittent asthma; Translations: [Mild intermittent asthma with (acute) exacerbation] Onset: 02-28-2022 Chronic Comment on above: Problem List clean-u p per request of Phys. EHR Cmte Cardiac dysrhythmias (13 sources) Palpitations; Translations: [Palpitations] Onset: 07-08-2024 07-08-2024 Episodic Conditions associated with dizziness or vertigo (5 sources) Dizziness and giddiness; Translations: [Lightheadedness] Onset: 04-04-2023 08-07-2024 Episodic Delirium, dementia, and amnestic and other cognitive disorders (8 sources) Postconcussion syndrome; Translations: [Postconcussional syndrome] 07-20-2017 Chronic Comment on above: Problem List clean-u p per request of Phys. EHR Cmte Diabetes mellitus without complication (20 sources) Prediabetes; Translations: [Prediabetes] Onset: 09-04-2023 10-24-2023 Episodic Disorders usually diagnosed in infancy, childhood, or adolescence (20 sources) Attention deficit hyperactivity disorder, predominantly inattentive type; Translations: [Other specified behavioral and emotional disorders with onset usually occurring in childhood and adolescence] Onset: 06-27-2023 06-27-2023 Chronic Essential hypertension (20 sources) Essential hypertension; Translations: [Essential (primary) hypertension] Onset: 11-22-2023 Resolved: 07-08-2024 11-22-2023 Chronic Gastritis and duodenitis (17 sources) Gastritis; Translations: [Unspecified chronic gastritis without bleeding] Onset: 06-27-2023 06-27-2023 Chronic Gastrointestinal hemorrhage (2 sources) Rectal hemorrhage; Translations: [Hemorrhage of anus and rectum] Episodic Glaucoma (4 sources) Glaucoma; Translations: [Unspecified glaucoma] 12-05-2023 Chronic Headache; including migraine (15 sources) Orthostatic headache ; Translations: [Orthostatic headache] Onset: 11-22-2023 Resolved: 08-07-2024 11-22-2023 Episodic Immunizations and screening for infectious disease (9 sources) Contact with or exposure to other viral diseases; Translations: [Close exposure to COVID-19 virus] Onset: 2024 Episodic Joint disorders and dislocations; trauma-related (15 sources) Derangement of right knee; Translations: [Unspecified internal derangement of right knee] Onset: 05-17-2023 05-17-2023 Chronic Menstrual disorders (4 sources) Irregular periods; Translations: [Irregular menstruation, unspecified] Onset: 06-21-2019 06-21-2019 Chronic Mood disorders (16 sources) Mood disorder; Translations: [Unspecified mood [affective] disorder] Onset: 04-05-2024 04-05-2024 Chronic Nausea and vomiting (9 sources) Nausea, vomiting and diarrhea; Translations: [Nausea with vomiting, unspecified] Episodic Nutritional deficiencies (20 sources) Vitamin D deficiency; Translations: [Vitamin D deficiency, unspecified] Onset: 06-27-2023 06-27-2023 Chronic Other diseases of kidney and ureters (17 sources) Renal mass; Translations: [Other specified disorders [...] Onset: 08-17-2016 08-17-2016 Chronic Other gastrointestinal disorders (6 sources) Irritable bowel syndrome; Translations: [Irritable bowel syndrome without diarrhea] 10-24-2023 Chronic Comment on above: Problem List clean-u p per request of Phys. EHR Cmte Other gastrointestinal disorders (2 sources) Irritable bowel syndrome without diarrhea; Translations: [Irritable bowel syndrome] 10-24-2023 Chronic Other gastrointestinal disorders (1 source) Irritable bowel syndrome Onset: 08-17-2016 02-20-2019 Chronic Other gastrointestinal disorders (3 sources) Constipation; Translations: [Constipation, unspecified] 08-19-2024 Episodic Other gastrointestinal disorders (2 sources) Gagging; Translations: [Other specified symptoms and signs involving the digestive system and abdomen] Episodic Other gastrointestinal disorders (14 sources) Diarrhea; Translations: [Diarrhea, unspecified] 03-20-2017 Episodic [...] 03-21-2024 Episodic Other inflammatory condition of skin (2 sources) Pruritus of vulva; Translations: [Pruritus vulvae] 08-01-2024 Episodic Other liver diseases (16 sources) Fatty (change of) liver, not elsewhere [...] Episodic Other nutritional; endocrine; and metabolic disorders (13 sources) Obesity; Translations: [Obesity, unspecified] Onset: 10-08-2013 02-20-2019 Chronic Other nutritional; endocrine; and metabolic disorders (8 sources) Body mass index 40+ - severely obese; Translations: [Body mass index (BMI) 40.0-44.9, adult] 10-24-2023 Chronic Other nutritional; endocrine; and metabolic disorders (12 sources) Morbid obesity; Translations: [Morbid (severe) obesity [...] Obesity, unspecified Onset: 10-08-2013 02-20-2019 Chronic Other nutritional; endocrine; and metabolic disorders (6 sources) Severe obesity; Translations: [Class 3 severe obesity due to excess calories with serious comorbidity and body mass index (BMI) of 45.0 to 49.9 in adult ([facility])] Onset: 06-27-2023 08-07-2024 Chronic Other upper respiratory disease (7 sources) Allergic rhinitis; Translations: [Allergic rhinitis, unspecified] Onset: 02-20-2019 02-20-2019 Chronic Other upper respiratory disease (8 sources) Seasonal allergy; Translations: [Other seasonal allergic [...] Onset: 02-28-2022 09-21-2023 Episodic Residual codes; unclassified (13 sources) Hypersomnia; Translations: [Hypersomnia, unspecified] Onset: 09-04-2023 09-04-2023 Chronic Unclassified (2 sources) COUGH, UNSPECIFIED; Translations: [COUGH, UNSPECIFIED] Onset: 02-28-2022 Unclassified (1 source) CONTACT W/AND (SUSP) EXPOS COVID-19; Translations: [CONTACT W/AND (SUSP) EXPOS COVID-19] Onset: 02-28-2022 Unclassified (1 source) Vaginal Itching Onset: 03-21-2024 Unclassified (1 source) STD Discussion Onset: 2024 Urinary tract infections (8 sources) Urinary tract infectious disease; Translations: [Urinary tract infection, site not specified] 01-18-2020 Episodic Comment on above: Problem List clean-u p per request of Phys. EHR Cmte Past or Other Problems Problem Classification Problem Date Documented Da te Episodic/Chronic Fluid and electrolyte disorders (15 sources) Hypokalemia; Translations: [Hypokalemia] Onset: 07-27-2023 07-27-2023 Episodic Genitourinary symptoms and ill-defined conditions (18 sources) Polyuria; Translations: [Polyuria] Onset: 07-27-2023 Resolved: 07-08-2024 07-27-2023 Episodic Other aftercare (1 source) Other care home (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; Translations: [OTH SHELTER CURRENT DRUG THERAPY] Onset: 02-28-2022 Episodic Other [...] Onset: 09-09-2020 Episodic Other nervous system disorders (15 sources) Paresthesia; Translations: [Paresthesia of skin] Onset: 06-27-2023 06-27-2023 Episodic Other nervous system disorders (1 source) Disturbances of sensation of smell and taste Onset: 09-09-2020 09-09-2020 Episodic Other non-traumatic joint disorders (16 sources) Pain in right knee; Translations: [Pain in joint, lower leg] Onset: 05-17-2023 Episodic Other non-traumatic joint disorders (15 sources) Multiple joint pain; Translations: [Pain in unspecified joint] Onset: 06-27-2023 06-27-2023 Episodic Other upper respiratory disease (12 sources) Deviated nasal septum; Translations: [Deviated nasal septum] Onset: 06-18-2015 06-18-2015 Episodic Other upper respiratory disease (15 sources) Hypertrophy of nasal turbinates; Translations: [Hypertrophy [...] Onset: 02-28-2022 Episodic Other upper respiratory disease (15 sources) Polypoid sinus degeneration; 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] Onset: 06-27-2023 06-27-2023 Episodic Other upper respiratory disease (2 sources) Other disease of nasal cavity and sinuses Onset: 10-31-2018 10-31-2018 Episodic Other upper respiratory disease (1 source) Deviated nasal septum Onset: 10-31-2018 10-31-2018 Episodic Other upper respiratory disease (1 source) Hypertrophy of nasal turbinates Onset: 06-18-2015 02-20-2019 Episodic Residual codes; unclassified (15 sources) Persistent insomnia; Translations: [Insomnia, unspecified] Onset: 06-27-2023 06-27-2023 Episodic Spondylosis; intervertebral disc disorders; other back problems (15 sources) Lumbago with sciatica; Translations: [Lumbago with sciatica, left side] Onset: 06-27-2023 06-27-2023 Episodic Unclassified (1 source) COUGH, UNSPECIFIED; Translations: [COUGH, UNSPECIFIED] Onset: 02-25-2022 Viral infection (5 sources) Other specified viral infection; Translations: [Disease [...] Stool by MARY with probe dete Negative [facility] Comment on above: Testing performed by RT-PCR Clostridium Difficileon 06-09 Clostridium Difficile Negative Normal Negative [facility] Comment on above: Order Comment: > or = to 3 loose/watery stools in the last 24 HRS? Y Is patient on promotility agents or tube feeding? N Result Comment: Test ing performed by RT-PCR PERFORMED BY: [place] [address] PATHOLOGIST PRODUCTION TEAM ADVISOR GUANACO ROSA M.D. Performed By: #### C DT #### [address] HCG ( test) IA.rapi d Ql (U)Ordered By: Radha Brandon on 06-18-2024 HCG ( test) Ql (U) Urine human chorionic gonadotropin (hCG) detection by immunoassay [facility] HCG,Urineon 06-18-2024 Beta HCG ( test) Ql (U) Negative Normal [facility] Comment on above: Result Comment: PERF ORMED BY: [place] [address] PATHOLOGIST PRODUCTION TEAM ADVISOR GUANACO ROSA M.D. Performed By: #### U [facility] #### [facility] [address] 06-18-2024 L Specimen: [id number] Received: 06/18/24 Status: MILKA Coker Num: [id number] Spec Type: Surgical Subm Dr: Radha Brandon DO Tissues: A Colon Biopsy (RANDOM RT COLON BX R/O MICRO) B Colon Biopsy (RANDOM LT COLON BX R/O MICRO) Procedures: Vicente AGUIAR/Micro L4/2 Age/ Patient Sex Location Account Attending Physician Melanie Ennis 29/F [id number] Radha Brandon DO SPEC NUM: [id number] RECD: 06/18/24 STATUS: MILKA COKER NUM: [id number] MONA: 06/18/24- SUBM DR: Radha Brandon DO ENTERED: 06/18/[address]: SPEC TYPE: Surgical DEPT: S ENTERED BY: [id number] RECV BY: [id number] ORDERED: HE/4, Gross/Micro L4/2 ORDERED: HE/4, Gross/Micro [...] submitted in a single cassette. (1, ns, [id number] A) J Part B is received in formalin labeled with the patients name, date of , and random left colon BX are 5 nelson-king, focally erythematous, friable, 0.2 to 0.5 cm in greatest dimension tissue bits. The specimen is entirely submitted in a single cassette. (1, ns, [id number] B) JG Specimen: [id number] Received: 06/18/24 Status: MILKA Coker Num: [id number] Spec Type: Surgical Subm Dr: Radha Brandon DO Tissues: A Colon Biopsy (RANDOM RT COLON BX R/O MICRO) B Colon Biopsy (RANDOM LT COLON BX R/O MICRO) Procedures: HE/4, Gross/Micro L4/2 Patient: Melanie Ennis [id number] (Continued) Specimen: [id number] Received: 06/18/24 (Continued) Signed (signature on file) Guanaco Rosa MD 06/19/24 1623 Specimen: [id number] Received: 06/18/24 Status: MILKA Coker Num: [id number] Spec Type: Surgical Subm Dr: Radha Brandon DO Tissues: A Colon Biopsy (RANDOM RT COLON BX R/O MICRO) B Colon Biopsy (RANDOM LT COLON BX R/O MICRO) Procedures: ARLEY/Vicente Lamar/Norma L4/2 Patient: Melanie Ennis [id number] (Continued) Specimen: [id number] Received: 06/18/24 (Continued) CPT Codes 10260w4 Specimen: [id number] Received: 06/18/24 Status: MILKA Coker Num: [id number] Spec Type: Surgical Subm Dr: Radha Brandon DO Tissues: A Colon Biopsy (RANDOM RT COLON BX R/O MICRO) B Colon Biopsy (RANDOM LT COLON BX R/O MICRO) Procedures: HE/Willard, Gross/Micro L4/2 Patient: Melanie Ennis [id number] (Continued) Signed (signature on file) Guanaco Rosa MD 06/19/24 1623 Normal [facility] Celiacon 04-15-2024 Deamidated Gliadin Abs, IgA 7 Normal 0-19 [facility] Comment on above: Result Comment: Nega tive 0 - 19 Weak Positive 20 - 30 Moderate to Strong Positive >30 Performed By: #### C ELIAC #### [facility] , #### CDT #### [facility] [address] [place] [address] [place] Deamidated Gliadin Abs, IgG 2 Normal 0-19 [facility] Comment on above: Result Comment: Nega tive 0 - 19 Weak Positive 20 - 30 Moderate to Strong Positive >30 Performed By: #### C ELIAC #### [facility] , #### CDT #### [facility] [address] [place] [address] [place] Endomysial Antibody IgA Negative Normal Negative [facility] Comment on above: Performed By: #### C ELIAC #### [facility] , #### CDT #### [facility] [address] [place] [address] [place] Immunoglobulin A, Qn, Serum 185 mg/dL Normal 87-352 [facility] Comment on above: Result Comment: Perf ormed at: - [facility] [address] [id number] [employer] Production Technician: De Thompson PhD, Phone: [phone] PERFORMED BY: [place] [address] PATHOLOGIST PRODUCTION TEAM ADVISOR AYDEN ZHONG M.D. Performed By: #### C ELIAC #### [facility] , #### CDT #### [address] T-Transglutaminase (tTG) IgA <2 Normal 0-3 [facility] Comment on above: Result Comment: Nega tive 0 - 3 Weak Positive 4 - 10 Positive >10 Tissue Transglutaminase (tTG) has been identified as the endomysial antigen. Studies have demonstr- ated that endomysial IgA antibodies have over 99% specificity for gluten sensitive enteropathy. Performed By: #### C ELIAC #### [facility] , #### CDT #### [address] T-Transglutaminase (tTG) IgG 2 Normal 0-5 [facility] Comment on above: Result Comment: Nega tive 0 - 5 Weak Positive 6 - 9 Positive >9 Performed By: #### C ELIAC #### [facility] , #### CDT #### [address] Clostridium Difficileon 10-0 Clostridium Difficile Positive Invalid Interpretation Code Negative [facility] Comment on above: Result Comment: Resu lts called at 1129 on 04/16/24 Testing performed by RT-PCR PERFORMED BY: [place] [address] PATHOLOGIST PRODUCTION TEAM ADVISOR AYDEN ZHONG M.D. Performed By: #### C ELIAC #### [facility] , #### CDT #### [address] E COLI SHIGA TOXIN EIAon E COLI SHIGA TOXIN EIA E coli Shiga Toxin EIA Negative [facility] E COLI SHIGA TOXIN EIA Performed at: [facility] E COLI SHIGA TOXIN EIA [address] [place], [place] [id number] [facility] E COLI SHIGA TOXIN EIA [employer] Production Technician: De Thompson PhD, Phone: [phone] [facility] No Panel Informationon 03-29 [facility] SALMONELLA/SHIGELLA SCREENon 03-29-2024 SALMONELLA/SHIGELLA SCREEN Salmonella/Shigella Screen [facility] SALMONELLA/SHIGELLA SCREEN No Salmonella or Shigella recovered. [facility] CHLAMYDIA/GC BY PCRon 2023 CHLAMYDIA/GC BY [...] are dependent on adequate specimen collection. Normal [facility] Comment on above: Performed By: #### C GS #### [facility] ([id number]) [address] [place] [address], [address] [place] [address] URINE CULTUREon 03-21-2024 Bacteria identified Cx Nom (U) CULTURE RESULTS <10,000 ORGANISMS/ML NORMAL URO GENITAL SAMAN Normal [facility] Comment on above: Performed By: #### 6 30-4 #### [facility] ([id number]) [address] [place] [address], [address] [place] [address] VAGINITIS PANEL PCRon 2023 VAGINITIS PANEL PCR [...] clinical presentation to determine patient diagnosis. Normal [facility] Comment on above: Performed By: #### V PPCR #### [facility] ([id number]) [address], [address] [place] [address] URINE CULTURE, ROUTINEon Bacteria identified Cx Nom (U) Urine Culture, Routine [facility] Bacteria identified Cx Nom (U) Mixed urogenital saman [facility] Bacteria identified Cx Nom (U) 10,000-25,000 colony forming units per mL [facility] Bacteria identified Cx Nom (U) Performed at: [facility] Bacteria identified Cx Nom (U) [address] [place], [place] [id number] [facility] Bacteria identified Cx Nom (U) [employer]fu[employer] Production Technician: De Thompson PhD, Phone: [phone] [facility] CLINISYNC [facility] ACUTE HEPATITIS PANELon 02-07 ANTI HCV W/PCR REFLX Non-Reactive Normal NRCT Pr [facility] Comment on above: Result Comment: If recent infection suspected, recommend repeat testing (>2 months). Wtzksh-vl-rzkflz ratio is <0.80. Performed By: #### [place], [address]-8, HSVP, 31428-6 #### [facility] ([id number]) [address], [address] [place] [address] HEPATITIS A IGM Non-Reactive Normal NRCT [facility] Comment on above: Performed By: #### A HP, 06783-0, HSVP, 31919-3 #### [facility] ([id number]) [address], [address] [place] [address] HEPATITIS B CORE IGM Negative Normal NEG [facility] Comment on above: Performed By: #### [place] HP, [address]-1, HSVP, 70978-0 #### [facility] ([id number]) [address] [facility] [place] [address] HEPATITIS B SURF AG Negative Normal NEG [facility] Comment on above: Performed By: #### A HP, 07582-9, HSVP, 67249-9 #### [facility] ([id number]) [address], [address] [address] CHLAMYDIA/GC BY PCRon 2023 CHLAMYDIA/GC BY PCR [...] are dependent on adequate specimen collection. Normal [facility] Comment on above: Performed By: #### C GS #### [facility] ([id number]) [address], [address] [place] [address] HERPES IgG PROFILEon 024 HERPES 1 IgG 5.6 AI High <0.9 [facility] Comment on above: Result Comment: Interpretation-------- <0.9 Negative 0.9 - 1.0 Equivocal >1.0 Positive Performed By: #### [place], [address]-3, HSVP, 24050-1 #### [facility] ([id number]) [address] [facility], [address] [address] HERPES 2 IgG <0.2 Normal <0.9 [facility] Comment on above: Result Comment: Interpretation-------- <0.9 Negative 0.9 - 1.0 Equivocal >1.0 Positive Performed By: #### [place] HP, 94707-3, HSVP, 97727-4 #### [facility] ([id number]) [address], [address] [place] [address] HIV 1&2 AB/AG Screen (P24 AG )on 2024 HIV 1+2 Ab+HIV1 p24 Ag IA Ql Non-Reactive Non-Reactive ^Non-Reactiv e [facility] Comment on above: This information has been disclosed to you [...] release of HIV test results or diagnoses. HIV 1+2 Ab+HIV1 p24 Ag IA Ql on 2024 HIV 1 and 2 Ab/Ag Screen Non-Reactive Normal NRCT [facility] Comment on above: Result Comment: This information [...] or diagnoses. Performed By: #### [place], [address]-6, HSVP, 31201-1 #### [facility] ([id number]) [address], [address] [place] [address] Hepatitis panel, acuteon HAV IgM IA Ql Non-Reactive Non-Reactive ^Non-Reactiv e [facility] HBV core IgM IA Ql Negative Negative^ Neg ative [facility] HBV surface Ag IA Ql Negative Negativ e^Neg ative [facility] HCV Ab IA Ql Non-Reactive Non-Reactive ^Non-Reactiv e [facility] Comment on above: If recent infection suspected, recommend repeat testing (>2 months). Mjqhti-uo-kummlf ratio is <0.80. No Panel Informationon 02-21 [facility] T. pallidum IgG+IgM IA Ql (S )on 2024 Syphilis Total <0.2 Normal 0.0-0.8 [facility] Comment on above: Result Comment: NON REACTIVE No serologic evidence of infection to Treponema pallidum (syphilis). Repeat testing may be considered in patients with suspected acute or primary syphilis in 2 to 4 weeks. Performed By: #### A HP, 04022-8, HSVP, 05241-8 #### [facility] ([id number]) [address] [place] [address] [address] [place] [address] VAGINITIS PANEL PCRon 2023 VAGINITIS PANEL PCR [...] clinical presentation to determine patient diagnosis. Normal [facility] Comment on above: Performed By: #### V PPCR #### [facility] ([id number]) [address] [facility] [facility] [facility], [address] [place] [address] COVID Cepheidon 09-21-2023 SARS-CoV-2 (COVID-19) RNA MARY+probe Ql (Unsp spec) Negative [facility] No Panel Informationon 09-20 POC Influenza A (PCR) Negative [facility] POC Influenza B (PCR) Negative [facility] CNOVon 09-12-2023 CNOV Office Visit (URFHR) RAYMON,MELANIE K ([id number]) 1995 F Date Time Provider Department 09/12/23 2:20 PM URSULA MCGINNIS URFHR During your visit today, we recorded the following information about you: Temperature Pulse Blood pressure 98.5 degrees 100/minute 158/86 Ursula Mcginnis MD 09/12/2023 8:11 PM Signed [facility] NEW PATIENT HISTORY AND PHYSICAL EXAM PATIENT INFO: Melanie Rashid Raymon 28 year old REFERRING M.D.: Self PCP: [...] for instances in which biopsy results will interchange agent, while explaining the risks and limitations of [...] from large surveillance (more content not included)... [facility] 09-12-2023 [facility] Telephone (URFHR) MELANIE ENNIS ([id number]) 1995 F Date Time Provider Department 09/12/23 URSULA MCGINNIS URR During your visit today, [...] Encounter Status:Closed by LYNDSAY ARANGO on 09/12/23 [facility] 08-28-2023 [facility] Telephone ([facility]) MELANIE ENNIS ([id number]) 1995 F Date Time Provider Department 08/28/23 URSULA MCGINNIS During your visit today, we recorded the [...] Status:Closed by ROSEANN SCOTT on 08/28/23 Normal [facility] Telephone Encounteron 2023 [employer] Sales Specialist Authentication Interface Message Text Patient has not been seen by this specialist in more than 1 year. Please contact patient to schedule office visit. Thank you Normal [employer] XR knee RT 4V*on 04-21-2023 XR knee RT 4V* [facility] [email or web address] Other XR knee RT 4V* [facility] [email or web address] Other XR knee RT 4V* [address] [place] [address] [email or web address] Other XR knee RT 4V* [place] [address] No rt [email or web address] Other XR knee RT 4V* XRay Report [employer] Other XR knee RT 4V* Signed [employer] Other XR knee RT 4V* Patient: Melanie Ennis MR#: [id number] [employer] Other XR knee RT 4V* 8702 [employer] Other XR knee RT 4V* : 1995 Acct:[id number] [employer] Other XR knee RT 4V* Age/Sex: 28 / F ADM Date: 04/21/23 [employer] Other XR knee RT 4V* Loc: [facility] Room: Type: REG CLI [employer] Other XR knee RT 4V* Attending Dr: Maribel MO [employer] Other XR knee RT 4V* Copies to: CHELY Miranda [employer] Other XR knee RT 4V* Ordering Provider: CHELY Miranda [employer] Other XR knee RT 4V* Date of Service: 04/21/23 [employer] Other XR knee RT 4V* XR/XR knee RT 4V*: RIGHT KNEE PAIN [employer] Other XR knee RT 4V* RIGHT KNEE - 4 views [employer] Other XR knee RT 4V* COMPARISON: None Nort [employer] Other XR knee RT 4V* CLINICAL DATA: Patient felt a pop at the right knee yesterday and the day before and has had pain at [employer] Other XR knee RT 4V* the knee since. [employer] Other XR knee RT 4V* AP, lateral and both oblique views were obtained. These no acute fracture or dislocation. There is [employer] Other XR knee RT 4V* minor squaring off of the articular margins at the posterior patella. There is a trace amount joint [employer] Other XR knee RT 4V* fluid. No focal soft tissue abnormalities are seen. [employer] Other XR knee RT 4V* XR/XR knee RT 4V* [employer] Other XR knee RT 4V* IMPRESSION: [employer] Other XR knee RT 4V* NO ACUTE BONY FINDINGS. [employer] Other XR knee RT 4V* Impression dictated by: Essie Rdz M.D.04/21/2023 12:14 PM [employer] Other XR knee RT 4V* Dictation Location: [place] [address] [employer] Other XR knee RT 4V* Transcribed By: [facility] 04/21/23 1214 [employer] Other XR knee RT 4V* Dictated By: Essie Rdz MD 04/21/23 [facility]3 [employer] Other XR knee RT 4V* Signed By: [employer] Other XR knee RT 4V* 04/21/23 1214 [employer] Other CBC with Diffon 04-04-2023 Abs. Basophil 0.04 k/uL Normal 0.00-0.20 [facility] [place] Comment on above: Performed By: #### SALLY Hayes CDP, CP, TROPI #### [facility] [address] [place] [id number] [employer]: Michael Ordonez MD Abs.Imm.Granulocyte <0.03 Normal 0.00-0.30 [facility] Comment on above: Performed By: #### SALLY Hayes, CDP, CP, TROPI #### [facility] [address] [place] [id number] [employer]: Michael Ordonez MD Abs.Neutrophil (Seg) 5.05 k/uL Normal 1.50-8.10 [facility] Comment on above: Performed By: #### M G, DIME, CDP, CP, TROPI #### [facility] [address] [place], [place] [id number] [employer]: Michael Ordonez MD Basophils/100 WBC (Bld) 1 % Normal 0-2 [facility] Comment on above: Performed By: #### M G, DIME, CDP, CP, TROPI #### [address] [place] [address] [employer]: Michael Ordonez MD Eosinophils (Bld) [#/Vol] 0.32 10*3/uL Normal 0.00-0.44 [facility] Comment on above: Performed By: #### M G, DIME, CDP, CP, TROPI #### [address] [place], [facility]83 [employer]: Michael Ordonez MD Eosinophils/100 WBC (Bld) 4 % Normal 1-4 [facility] Comment on above: Performed By: #### M G, DIME, CDP, CP, TROPI #### [address] [place], [facility]83 [employer]: Michael Ordonez MD Erythrocyte distribution width (RBC) [Ratio] 14.3 % Normal 11.8-14.4 [facility] Comment on above: Performed By: #### M G, DIME, CDP, CP, TROPI #### [address] [place], [facility]83 [employer]: Michael Ordonez MD Hematocrit (Bld) [Volume fraction] 36.1 % Low 36.3-47.1 [facility] Comment on above: Performed By: #### M G, DIME, CDP, CP, TROPI #### [address] [place], [place] [id number] [employer]: Michael Ordonez MD Hemoglobin (Bld) [Mass/Vol] 11.6 g/dL Low 11.9-15.1 [facility] Comment on above: Performed By: #### M G, DIME, CDP, CP, TROPI #### [address] [place], [facility]83 [employer]: Michael Ordonez MD Immature granulocytes/100 WBC (Bld) 0 % Normal 0 [facility] Comment on above: Performed By: #### M G, DIME, CDP, CP, TROPI #### [address] [place], [facility]83 [employer]: Michael Ordonez MD Lymphocytes (Bld) [#/Vol] 1.94 10*3/uL Normal 1.10-3.70 [facility] Comment on above: Performed By: #### M G, DIME, CDP, CP, TROPI #### [address] [place], [facility]83 [employer]: Michael Ordonez MD Lymphocytes/100 WBC (Bld) 25 % Normal 24-43 [facility] Comment on above: Performed By: #### M G, DIME, CDP, CP, TROPI #### [address] [place], [place] [address] [employer]: Michael Ordonez MD MCH (RBC) [Entitic mass] 27.6 pg Normal 25.2-33.5 [facility] Comment on above: Performed By: #### M G, DIME, CDP, CP, TROPI #### [address] [place], [facility]83 [employer]: Michael Ordonez MD MCHC (RBC) [Mass/Vol] 32.1 g/dL Normal 28.4-34.8 [facility] Comment on above: Performed By: #### M G, DIME, CDP, CP, TROPI #### [facility] [address] [place] [id number] [employer]: Michael Ordonez MD MCV (RBC) [Entitic vol] 86.0 fL Normal 82.6-102.9 [facility] Comment on above: Performed By: #### M G, DIME, CDP, CP, TROPI #### [address] [place], [facility]83 [employer]: Michael Ordonez MD Monocytes (Bld) [#/Vol] 0.43 10*3/uL Normal 0.10-1.20 [facility] Comment on above: Performed By: #### M G, DIME, CDP, CP, TROPI #### [address] [place], [place] [address] [employer]: Michael Ordonez MD Monocytes/100 WBC (Bld) 6 % Normal 3-12 [facility] Comment on above: Performed By: #### M G, DIME, CDP, CP, TROPI #### [address] [place], [place] [address] [employer]: Michael Ordonez MD Neutrophil (Seg) 64 % Normal 36-65 [facility] Comment on above: Performed By: #### M G, DIME, CDP, CP, TROPI #### [address] [place], [facility]83 [employer]: Michael Ordonez MD NRBC Automated 0.0 per 100 WBC Normal 0.0 [facility] Comment on above: Performed By: #### M G, DIME, CDP, CP, TROPI #### [address] [place], [facility]83 [employer]: Michael Ordonez MD Platelet mean volume (Bld) [Entitic vol] 9.7 fL Normal 8.1-13.5 [facility] Comment on above: Performed By: #### M G, DIME, CDP, CP, TROPI #### [facility] [address] [place] [id number] [employer]: Michael Ordonez MD Platelets (Bld) [#/Vol] 333 10*3/uL Normal 138-453 [facility] Comment on above: Performed By: #### M G, DIME, CDP, CP, TROPI #### [facility] [address] [place] [id number] [employer]: Michael Ordonez MD RBC (Bld) [#/Vol] 4.20 10*6/uL Normal 3.95-5.11 [facility] Comment on above: Performed By: #### M G, DIME, CDP, CP, TROPI #### [facility] [address] [place], [place] [address] [employer]: Michael Ordonez MD WBC (Bld) [#/Vol] 7.8 10*3/uL Normal 3.5-11.3 [facility] Comment on above: Performed By: #### M G, DIME, CDP, CP, TROPI #### [facility] [address] [place], [place] [id number] [employer]: Michael Ordonez MD Comp Metabolic Profon 2022 Albumin [Mass/Vol] 4.3 g/dL Normal 3.5-5.2 [facility] Comment on above: Performed By: #### M G, DIME, CDP, CP, TROPI #### [facility] [address] [place], [place] [id number] [employer]: Michael Ordonez MD Albumin/Glob Ratio 1.5 Normal 1.0-2.5 [facility] Comment on above: Performed By: #### M G, DIME, CDP, CP, TROPI #### [facility] [address] [place] [id number] [employer]: Michael Ordonez MD Alkaline Phos 80 U/L Normal 35-104 [facility] Comment on above: Performed By: #### M G, DIME, CDP, CP, TROPI #### [facility] [address] [place], [place] [id number] [employer]: Michael Ordonez MD ALT [Catalytic activity/Vol] 13 U/L Normal 5-33 [facility] Comment on above: Performed By: #### M G, DIME, CDP, CP, TROPI #### [facility] [address] [place] [id number] [employer]: Michael Ordonez MD Anion gap [Moles/Vol] 9 mmol/L Normal 9-17 [facility] Comment on above: Performed By: #### M G, DIME, CDP, CP, TROPI #### [facility] [address] [place], [place] [id number] [employer]: Michael Ordonez MD AST [Catalytic activity/Vol] 12 U/L Normal <32 [facility] Comment on above: Performed By: #### M G, DIME, CDP, CP, TROPI #### [facility] [address] [place] [address] [employer]: Michael Ordonez MD Bilirubin [Mass/Vol] 0.2 mg/dL Low 0.3-1.2 [facility] Comment on above: Performed By: #### M G, DIME, CDP, CP, TROPI #### [facility] [address] [place], [place] [id number] [employer]: Michael Ordonez MD BUN/CRE Ratio 8 Low 9-20 [facility] Comment on above: Performed By: #### M G, DIME, CDP, CP, TROPI #### [facility] [address] [place] [id number] [employer]: Michael Ordonez MD Calcium [Mass/Vol] 9.5 mg/dL Normal 8.6-10.4 [facility] Comment on above: Performed By: #### M Damián, DIME, CDP, CP, TROPI #### [facility] [address] [place], [place] [id number] [employer]: Michael Ordonez MD Chloride [Moles/Vol] 103 mmol/L Normal 98-107 [facility] Comment on above: Performed By: #### M G, DIME, CDP, CP, TROPI #### [facility] [address] [place], [place] [id number] [employer]: Michael Ordonez MD CO2 [Moles/Vol] 26 mmol/L Normal 20-31 [facility] Comment on above: Performed By: #### M Damián, DIME, CDP, CP, TROPI #### [facility] [address] [place], [place] [id number] [employer]: Michael Ordonez MD Creatinine [Mass/Vol] 0.6 mg/dL Normal 0.5-0.9 [facility] Comment on above: Performed By: #### M Damián, DIME, CDP, CP, TROPI #### [facility] [address] [place] [id number] [employer]: Michael Ordonez MD GFR/1.73 sq M.predicted among non-blacks MDRD (S/P/Bld) [Vol rate/Area] mL/min/{1.73_m2} Normal >60 [facility] Comment on above: Result Comment: These [...] M G, DIME, CDP, CP, TROPI #### [facility] [address] [place], [place] [id number] [employer]: Michael Ordonez MD Glucose [Mass/Vol] 96 mg/dL Normal 70-99 [facility] Comment on above: Performed By: #### M G, DIME, CDP, CP, TROPI #### [facility] [address] [place], [place] [id number] [employer]: Michael Ordonez MD Potassium [Moles/Vol] 4.4 mmol/L Normal 3.7-5.3 [facility] Comment on above: Performed By: #### M G, DIME, CDP, CP, TROPI #### [facility] [address] [place], [place] [id number] [employer]: Michael Ordonez MD Protein [Mass/Vol] 7.1 g/dL Normal 6.4-8.3 [facility] Comment on above: Performed By: #### M G, DIME, CDP, CP, TROPI #### [facility] [address] [place], [place] [id number] [employer]: Michael Ordonez MD Sodium [Moles/Vol] 138 mmol/L Normal 135-144 [facility] Comment on above: Performed By: #### M G, DIME, CDP, CP, TROPI #### [facility] [address] [place], [place] [id number] [employer]ician: Michael Ordonez MD Urea nitrogen [Mass/Vol] 5 mg/dL Low 6-20 [facility] Comment on above: Performed By: #### M G, DIME, CDP, CP, TROPI #### [facility] [address] [place], [place] [id number] [employer]: Michael Ordonez MD D-Dimer Teston 04-04-2023 D-Dimer Test 0.37 ug/mL FEU Normal 0.00-0.59 [facility] Comment on above: Result Comment: When [...] M SALLY Steel CDP, CP, TROPI #### [facility] [address] [place] [address] [place] [id number] [employer]: Michael Ordonez MD Magnesiumon 04-04-2023 Magnesium [Mass/Vol] 1.8 mg/dL Normal 1.6-2.6 [facility] Comment on above: Performed By: #### SALLY Hayes CDP, CP, TROPI #### [facility] [address] [place] [id number] [employer]: Michael Ordonez MD [id number] 04-04-2023 SARS-CoV-2 (COVID-19) RNA MARY+probe Ql (Unsp spec) Not detected [facility] Comment on above: Result Comment: Rapid [...] management decisions. Fact sheet for Healthcare Providers: https://www.fda.gov/media/571552/download Fact sheet for Patients: https://www.fda.gov/media/172906/download Methodology: Isothermal Nucleic Acid Amplification Performed By: #### C OVRB #### [address] [place] [address] [employer]ician: Michael Ordonez MD Thyroid Stim. Horm.on 2022 Thyroid Stim. Horm. 0.88 uIU/mL Normal 0.30-5.00 [facility] Comment on above: Performed By: #### T SH #### [address] [place] [address] [employer]: Michael Ordonez MD Troponinon 04-04-2023 Troponin, High Sens 6 ng/L Normal 0-14 [facility] Comment on above: Result Comment: High Sensitivity Troponin values cannot be compared with other Troponin methodologies. Performed By: #### M G, DIME, CDP, CP, TROPI #### [address] [place], [facility]83 [employer]: Michael Ordonez MD Urinalysis, Routineon 2022 Bilirubin, SemiQt,Ur Negative Normal NEG [facility] Comment on above: Performed By: #### U JAYDE, UA #### [address] [place] [address] [employer]ician: Michael Ordonez MD Blood, Urine 3+ Abnormal NEG [facility] Comment on above: Performed By: #### U JAYDE, UA #### [facility] [address] [place] [address] [place], [place] [id number] [employer]: Michael Ordonez MD Clarity (U) Clear Normal CLEAR [facility] Comment on above: Performed By: #### U MICAO, UA #### [facility] [address] [place] [address] [place] [place], [place] [id number] [employer]ician: Michael Ordonez MD Color (U) Yellow Normal YEL [facility] Comment on above: Performed By: #### U MICAO, UA #### [address] [place], [place] [id number] [employer]ician: Michael Ordonez MD Glucose Ql (U) Negative Normal NEG [facility] Comment on above: Performed By: #### U MICAO, UA #### [facility] [address] [place] [address] [place], [place] [id number] [employer]ician: Michael Ordonez MD Ketones Ql (U) Negative Normal NEG [facility] Comment on above: Performed By: #### U MICAO, UA #### [address] [place], [place] [id number] [employer]ician: Michael Ordonez MD Leukocyte esterase Test strip Ql (U) Negative Normal NEG [facility] Comment on above: Performed By: #### U MICAO, UA #### [facility] [address] [place] [address] [place] [place], [place] [id number] [employer]ician: Michael Ordonez MD Nitrite,Ur Negative Normal NEG [facility] Comment on above: Performed By: #### U MICAO, UA #### [address] [place] [id number] [employer]ician: Michael Ordonez MD PH,Ur 7.0 Normal 5.0-9.0 [facility] Comment on above: Performed By: #### U MICAO, UA #### [facility] [address] [place], [place] [id number] [employer]ician: Michael Ordonez MD Protein Ql (U) Negative Normal NEG [facility] Comment on above: Performed By: #### U MICAO, UA #### [facility] [address] [place], [place] [id number] [employer]ician: Michael Ordonez MD Spec. Gamaliel,Ur 1.010 Normal 1.010-1.020 [facility] Comment on above: Performed By: #### U MICAO, UA #### [address] [place], [place] [id number] [employer]ician: Michael Ordonez MD Urobilinogen,Ur Normal Normal 0.0-1.0 [facility] Comment on above: Performed By: #### U EMILIEO, UA #### [address] [place], [place] [id number] [employer]ician: Michael Ordonez MD Urinalysis,Microon 3 Bacteria TRACE Abnormal NONE [facility] Comment on above: Performed By: #### U EMILIEO, UA #### [address] [place], [place] [id number] [employer]ician: Michael Ordonez MD Epithelial cells LM Ql (Urine sed) 0 TO 2 Normal 0-25 [facility] Comment on above: Performed By: #### U MICAO, UA #### [facility] [address] [place], [place] [id number] [employer]ician: Michael Ordonez MD Urine RBC's 5 TO 10 Normal 0-2 [facility] Comment on above: Performed By: #### U MICAO, UA #### [facility] [address] [place], [place] [id number] [employer]ician: Michael Ordonez MD Urine WBC's None Normal 0-5 [facility] Comment on above: Performed By: #### U MICAO, UA #### [facility] [address] [place] [id number] [employer]ician: Michael Ordonez MD XR CHEST PORTABLEon [...] Rudy Jacobo MD 04/04/23 Final result Normal [facility] CBC AUTO DIFFon 11-18-2022 BASO # 0.1 103/ul Normal 0.0-0.[address] [facility] Comment on above: Performed By: #### C BC #### [facility] [address] [place] [address] [address] Laura Duarte Basophils/100 WBC (Bld) 0.8 % Normal 0.2-2.[address] [facility] Comment on above: Performed By: #### C BC #### [facility] [address] [place] [address] [address] Laura Duarte EO # 1.0 103/ul Critically high 0.0-0.7 [place] Comment on above: Performed By: #### C BC #### [facility] [address] [address] [address] Laura Duarte Eosinophils/100 WBC (Bld) 11.5 % Critically high 0.9-7.[address] [facility] Comment on above: Performed By: #### C BC #### [facility] [address] [place] [address] [address] Laura Duarte Erythrocyte distribution width (RBC) [Ratio] 13.2 % Normal 11.0-15.[address] [facility] Comment on above: Performed By: #### C BC #### [facility] [address] [address] [address] Laura Duarte Hematocrit (Bld) [Volume fraction] 37.6 % Normal 36.0-48.[address] [facility] Comment on above: Performed By: #### C BC #### [facility] [address] [address] [address] Laura Duarte Hemoglobin (Bld) [Mass/Vol] 12.3 g/dL Normal 12.0-16.[address] [facility] Comment on above: Performed By: #### C BC #### [facility] [address] [address] [address] Laura Duarte IG # 0.02 10e3/ul Normal 0.00-0.[address] [facility] Comment on above: Performed By: #### C BC #### [facility] [address] [place] [address] Dr. Laura Duarte IG % 0.2 % Normal 0.0-0.[address] [facility] Comment on above: Performed By: #### C BC #### [facility] [address] [place] [address] Dr. Laura Duarte LYMPH # 2.7 103/ul Normal 1.2-3.[address] [facility] Comment on above: Performed By: #### C BC #### [facility] [address] [place] [address] Dr. Laura Duarte Lymphocytes/100 WBC (Bld) 30.3 % Normal 20.5-60.[address] [facility] Comment on above: Performed By: #### C BC #### [facility] [address] [place] [address] Dr. Laura Duarte MANUAL DIFF REQ NO Normal [place] Comment on above: Performed By: #### C BC #### [facility] [address] [place] [address] Dr. Laura Duarte MCH (RBC) [Entitic mass] 27.9 pg Normal 26.7-34.0 [facility] Comment on above: Performed By: #### C BC #### [facility] [address] [place] [address] Dr. Laura Duarte MCHC (RBC) [Mass/Vol] 32.7 g/dL Normal 29.9-35.2 [facility] Comment on above: Performed By: #### C BC #### [facility] [address] [address] [address] Laura Duarte MCV (RBC) [Entitic vol] 85.3 fL Normal 81.0-99.[address] [facility] Comment on above: Performed By: #### C BC #### [facility] [address] [address] [address] Laura Duarte MONO # 0.5 103/ul Normal 0.3-0.8 [facility] Comment on above: Performed By: #### C BC #### [facility] [address] [place] [address] Dr. Laura Duarte Monocytes/100 WBC (Bld) 5.0 % Normal 1.7-12.[address] [facility] Comment on above: Performed By: #### C BC #### [facility] [address] [place] [address] Dr. Laura Duarte NEUT # 4.7 103/ul Normal 1.4-6.[address] [facility] Comment on above: Performed By: #### C BC #### [facility] [address] [place] [address] Dr. Laura Duarte Neutrophils/100 WBC (Bld) 52.2 % Normal 43.0-75.[address] [facility] Comment on above: Performed By: #### C BC #### [facility] [address] [place] [address] Dr. Laura Duarte Platelet mean volume (Bld) [Entitic vol] 9.9 fL Normal 9.5-13.5 [facility] Comment on above: Performed By: #### C BC #### [facility] [address] [place] [address] Dr. Laura Duarte PLT 363 103/ul Normal 150-450 [facility] Comment on above: Performed By: #### C BC #### [facility] [address] [place] [address] Dr. Laura Duarte RBC 4.41 106/ul Normal 4.20-5.40 [facility] Comment on above: Performed By: #### C BC #### [facility] [address] [place] [address] Dr. Laura Duarte WBC 9.0 103/ul Normal 4.0-11.[address] [facility] Comment on above: Performed By: #### C BC #### [facility] [address] [place] [address] Dr. Laura Duarte PROF 14(COMP METB)on 023 Albumin [Mass/Vol] 3.7 g/dL Normal 3.4-5.0 [facility] Comment on above: Performed By: #### P TT, PT #### [facility] [address] [place] [address] Dr. Laura Duarte Albumin/Globulin [Mass ratio] 1.0 {ratio} Normal [facility] Comment on above: Performed By: #### P TT, PT #### [facility] [address] [place] [address] Dr. Laura Duarte ALP [Catalytic activity/Vol] 89 U/L Normal 46-[address] [facility] Comment on above: Performed By: #### P TT, PT #### [facility] [address] [place] [address] Dr. Laura Duarte ALT [Catalytic activity/Vol] 22 U/L Normal 14-[address] [facility] Comment on above: Performed By: #### P TT, PT #### [facility] [address] [place] [address] Dr. Laura Duarte Anion gap [Moles/Vol] 13.8 mmol/L Normal [facility] Comment on above: Performed By: #### P TT, PT #### [facility] [address] [place] [address] Dr. Laura Duarte AST [Catalytic activity/Vol] 13 U/L Critically low 15-[address] [facility] Comment on above: Performed By: #### P TT, PT #### [facility] [address] [place] [address] Dr. Laura Duarte Bilirubin [Mass/Vol] 0.2 mg/dL Normal 0.2-1.[address] [facility] Comment on above: Performed By: #### P TT, PT #### [facility] [address] [address] [address] Laura Duarte Calcium [Mass/Vol] 9.0 mg/dL Normal 8.5-10.[address] [facility] Comment on above: Performed By: #### P TT, PT #### [facility] [address] [address] [address] Laura Duarte Chloride [Moles/Vol] 106 mmol/L Normal 98-107 [facility] Comment on above: Performed By: #### P TT, PT #### [facility] [address] [place] [address] Dr. Laura Duarte CO2 [Moles/Vol] 27.3 mmol/L Normal 21.0-32.0 [facility] Comment on above: Performed By: #### P TT, PT #### [facility] [address] [place] [address] Dr. Laura Duarte Creatinine [Mass/Vol] 0.77 mg/dL Normal 0.55-1.02 [facility] Comment on above: Performed By: #### P TT, PT #### [facility] [address] [place] [address] Dr. Laura Duarte EGFR-AF JORDANIAN >60 Normal >=60 [facility] Comment on above: Performed By: #### P TT, PT #### [facility] [address] [place] [address] Dr. Laura Duarte EGFR-NON AF JORDANIAN >60 Normal >=60 [facility] Comment on above: Performed By: #### P TT, PT #### [facility] [address] [place] [address] Dr. Laura Duarte Globulin (S) [Mass/Vol] 3.8 g/dL Normal [facility] Comment on above: Performed By: #### P TT, PT #### [facility] [address] [place] [address] Dr. Laura Duarte Glucose [Mass/Vol] 95 mg/dL Normal 74-[address] [facility] Comment on above: Performed By: #### P TT, PT #### [facility] [address] [place] [address] Dr. Laura Duarte Potassium [Moles/Vol] 4.1 mmol/L Normal 3.5-5.1 [facility] Comment on above: Performed By: #### P TT, PT #### [facility] [address] [address] [address] Laura Duarte Protein [Mass/Vol] 7.5 g/dL Normal 6.4-8.[address] [facility] Comment on above: Performed By: #### P TT, PT #### [facility] [address] [place] [address] Dr. Laura Duarte Sodium [Moles/Vol] 143 mmol/L Normal 136-[address] [facility] Comment on above: Performed By: #### P TT, PT #### [facility] [address] [place] [address] Dr. Laura Duarte Urea nitrogen [Mass/Vol] 6.0 mg/dL Critically low 7.0-18.[address] [facility] Comment on above: Performed By: #### P TT, PT #### [facility] [address] [place] [address] Dr. Laura Duarte Urea nitrogen/Creatinine [Mass ratio] 7.8 mg/mg Normal [facility] Comment on above: Performed By: #### P TT, PT #### [facility] [address] [place] [address] Dr. Laura Duarte PROTIMEon 11-18-2022 INR Coag (PPP) [Relative time] {INR} Normal [facility] Comment on above: Performed By: #### P TT, PT #### [facility] [address] [place] [address] Dr. Laura Duarte INR GUIDELINES SEE BELOW Normal [facility] Comment on above: Result Comment: [place] RED INR: 2.0 - 3.0 CONDITIONS NOT LISTED BELOW 2.5 - 3.5 FOR PROSTHETIC HEART VALVE REPLACEMENT 2.5 - 3.5 RECURRENT THROMBOSIS Performed By: #### P TT, PT #### [facility] [address] [place] [address] Dr. Laura Duarte PT Coag (PPP) [Time] 9.8 s Normal 9.0-11.[address] [facility] Comment on above: Performed By: #### P TT, PT #### [facility] [address] [place] [address] Dr. Laura Duarte PTTon 11-18-2022 aPTT Coag (Bld) [Time] 34.4 s Normal 22.3-36.2 Th e [facility] Comment on above: Performed By: #### P TT, PT #### [facility] [address] [place] [address] Dr. Laura Duarte XR CHEST 2 Von [...] LEONARD CERVANTES Date: 2022-11-18 12:35 Normal [facility] CBC AUTO DIFFon 03-30-2022 BASO # 0.1 103/ul Normal 0.0-0.[address] [facility] Comment on above: Performed By: #### P TT, PT #### [facility] [address] [place] [address] Dr. Laura Duarte Basophils/100 WBC (Bld) 0.6 % Normal 0.2-2.0 [facility] Comment on above: Performed By: #### P TT, PT #### [facility] [address] [place] [address] Dr. Laura Duarte EO # 0.7 103/ul Normal 0.0-0.[address] [facility] Comment on above: Performed By: #### P TT, PT #### [facility] [address] [place] [address] Dr. Laura Duarte Eosinophils/100 WBC (Bld) 7.8 % Critically high 0.9-7.[address] [facility] Comment on above: Performed By: #### P TT, PT #### [facility] [address] [place] [address] Dr. Laura Duarte Erythrocyte distribution width (RBC) [Ratio] 14.0 % Normal 11.0-15.[address] [facility] Comment on above: Performed By: #### P TT, PT #### [facility] [address] [place] [address] Dr. Laura Duarte Hematocrit (Bld) [Volume fraction] 37.8 % Normal 36.0-48.[address] [facility] Comment on above: Performed By: #### P TT, PT #### [facility] [address] [place] [address] Dr. Laura Duarte Hemoglobin (Bld) [Mass/Vol] 12.2 g/dL Normal 12.0-16.[address] [facility] Comment on above: Performed By: #### P TT, PT #### [facility] [address] [place] [address] Dr. Laura Duarte IG # 0.02 10e3/ul Normal 0.00-0.[address] [facility] Comment on above: Performed By: #### P TT, PT #### [facility] [address] [place] [address] Dr. Laura Duarte IG % 0.2 % Normal 0.0-0.[address] [facility] Comment on above: Performed By: #### P TT, PT #### [facility] [address] [place] [address] Dr. Laura Duarte LYMPH # 2.4 103/ul Normal 1.2-3.8 [facility] Comment on above: Performed By: #### P TT, PT #### [facility] [address] [place] [address] Dr. Laura Duarte Lymphocytes/100 WBC (Bld) 26.2 % Normal 20.5-60.0 [facility] Comment on above: Performed By: #### P TT, PT #### [facility] [address] [place] [address] Dr. Laura Duarte MANUAL DIFF REQ NO Normal [facility] Comment on above: Performed By: #### P TT, PT #### [facility] [address] [place] [address] Dr. Laura Duarte MCH (RBC) [Entitic mass] 27.6 pg Normal 26.7-34.0 [facility] Comment on above: Performed By: #### P TT, PT #### [facility] [address] [place] [address] Dr. Laura Duarte MCHC (RBC) [Mass/Vol] 32.3 g/dL Normal 29.9-35.2 [facility] Comment on above: Performed By: #### P TT, PT #### [facility] [address] [place] [address] Dr. Laura Duarte MCV (RBC) [Entitic vol] 85.5 fL Normal 81.0-99.0 [facility] Comment on above: Performed By: #### P TT, PT #### [facility] [address] [place] [address] Dr. Laura Duarte MONO # 0.6 103/ul Normal 0.3-0.8 [facility] Comment on above: Performed By: #### P TT, PT #### [facility] [address] [place] [address] Dr. Laura Duarte Monocytes/100 WBC (Bld) 6.5 % Normal 1.7-12.0 [facility] Comment on above: Performed By: #### P TT, PT #### [facility] [address] [place] [address] Dr. Laura Duarte NEUT # 5.4 103/ul Normal 1.4-6.5 [facility] Comment on above: Performed By: #### P TT, PT #### [facility] [address] [place] [address] Dr. Laura Duarte Neutrophils/100 WBC (Bld) 58.7 % Normal 43.0-75.0 [facility] Comment on above: Performed By: #### P TT, PT #### [facility] [address] [place] [address] Dr. Laura Duarte Platelet mean volume (Bld) [Entitic vol] 11.6 fL Normal 9.5-13.5 [facility] Comment on above: Performed By: #### P TT, PT #### [facility] [address] [place] [address] Dr. Laura Duarte PLT 321 103/ul Normal 150-[address] [facility] Comment on above: Performed By: #### P TT, PT #### [facility] [address] [place] [address] Dr. Laura Duatre RBC 4.42 106/ul Normal 4.20-5.[address] [facility] Comment on above: Performed By: #### P TT, PT #### [facility] [address] [place] [address] Dr. Laura Duarte WBC 9.3 103/ul Normal 4.0-11.[address] [facility] Comment on above: Performed By: #### P TT, PT #### [facility] [address] [place] [address] Dr. Laura Duarte GLYCOHEMOGLOBIN A1Con 2021 ADA RECOMMENDATION SEE BELOW Normal [facility] Comment on above: Result Comment: ADA RECOMMENDED LIMIT 4.0 - 6.0 ADA THERAPEUTIC TARGET < 7.0 ACTION SUGGESTED > 7.0 Performed By: #### A 1C #### [facility] [address] [place] [address] Dr. Laura Duarte Glucose [Mass/Vol] 111 mg/dL Normal [facility] Comment on above: Performed By: #### A 1C #### [facility] [address] [place] [address] Dr. Laura Duarte HbA1c (Bld) [Mass fraction] 5.5 % Normal 4.5-6.[address] [facility] Comment on above: Performed By: #### A 1C #### [facility] [address] [place] [address] Dr. Laura Duarte LIPID PROFILEon 03-30-2022 CHOL-HDL RATIO NORM SEE BELOW Normal [facility] Comment on above: Result Comment: 3.3 - 4.4 LOW RISK 4.4 - 7.1 AVERAGE RISK 7.1 - 11.0 MODERATE RISK >11.0 HIGH RISK Performed By: #### T SH, LIVER, LIPID, BMP #### [facility] [address] [place] [address] Dr. Laura Duarte Cholesterol [Mass/Vol] 174 mg/dL Normal <=200 [facility] Comment on above: Performed By: #### T SH, LIVER, LIPID, BMP #### [facility] [address] [address] [address] Laura Duarte Cholesterol in HDL [Mass/Vol] 49 mg/dL Normal 40-[address] [facility] Comment on above: Performed By: #### T SH, LIVER, LIPID, BMP #### [facility] [address] [address] [address] Laura Duarte Cholesterol in LDL [Mass/Vol] 113.2 mg/dL Normal [facility] Comment on above: Performed By: #### T SH, LIVER, LIPID, BMP #### [facility] [address] [place] [address] Dr. Laura Duarte Cholesterol.total/Chol esterol in HDL [Mass ratio] 3.6 {ratio} Normal [facility] Comment on above: Performed By: #### T SH, LIVER, LIPID, BMP #### [facility] [address] [place] [address] Dr. Laura Duarte HDL NORMAL > or = 60 mg/dl - LOW CARDIOVASCULAR RISK <40 mg/dl - HIGH CARDIOVASCULAR RISK Normal [facility] Comment on above: Performed By: #### T SH, LIVER, LIPID, BMP #### [facility] [address] [place] [address] Dr. Laura Duarte LDL CALC NORMAL SEE BELOW Normal [place] Comment on above: Result Comment: <100 mg/dl OPTIMAL 100 - 129 mg/dl NEAR OR ABOVE OPTIMAL 130 - 159 mg/dl BORDERLINE HIGH 160 - 189 mg/dl HIGH >190 mg/dl VERY HIGH Performed By: #### T SH, LIVER, LIPID, BMP #### [facility] [address] [place] [address] Dr. Laura Duarte Triglyceride [Mass/Vol] 59 mg/dL Normal <=[address] [facility] Comment on above: Performed By: #### T SH, LIVER, LIPID, BMP #### [facility] [address] [place] [address] Dr. Laura Duarte VLDL CALC 11.8 mg/dL Normal [facility] Comment on above: Performed By: #### T SH, LIVER, LIPID, BMP #### [facility] [address] [address] [address] Laura Duarte LIVER PROFILEon 03-30-2022 Albumin [Mass/Vol] 3.6 g/dL Normal 3.4-5.0 [facility] Comment on above: Performed By: #### T SH, LIVER, LIPID, BMP #### [facility] [address] [place] [address] Dr. Laura Duarte Albumin/Globulin [Mass ratio] 1.0 {ratio} Normal [facility] Comment on above: Performed By: #### T SH, LIVER, LIPID, BMP #### [facility] [address] [place] [address] Dr. Laura Duarte ALP [Catalytic activity/Vol] 76 U/L Normal 46-116 [facility] Comment on above: Performed By: #### T SH, LIVER, LIPID, BMP #### [facility] [address] [place] [address] Dr. Laura Duarte ALT [Catalytic activity/Vol] 19 U/L Normal 14-[address] [facility] Comment on above: Performed By: #### T SH, LIVER, LIPID, BMP #### [facility] [address] [place] [address] Dr. Laura Duarte AST [Catalytic activity/Vol] 11 U/L Critically low 15-[address] [facility] Comment on above: Performed By: #### T SH, LIVER, LIPID, BMP #### [facility] [address] [place] [address] Dr. Laura Duarte BILI, CONJUGATED 0.1 mg/dL Normal 0.0-0.2 [facility] Comment on above: Performed By: #### T SH, LIVER, LIPID, BMP #### [facility] [address] [place] [address] Dr. Laura Duarte Bilirubin [Mass/Vol] 0.3 mg/dL Normal 0.2-1.[address] [facility] Comment on above: Performed By: #### T SH, LIVER, LIPID, BMP #### [facility] [address] [address] [address] Laura Duarte Globulin (S) [Mass/Vol] 3.5 g/dL Normal [facility] Comment on above: Performed By: #### T SH, LIVER, LIPID, BMP #### [facility] [address] [address] [address] Laura Duarte Protein [Mass/Vol] 7.1 g/dL Normal 6.4-8.2 [facility] Comment on above: Performed By: #### T SH, LIVER, LIPID, BMP #### [facility] [address] [place] [address] Dr. Laura Duarte PROF CHEM 8 (BAS METB)on Anion gap [Moles/Vol] 12.4 mmol/L Normal [facility] Comment on above: Performed By: #### T SH, LIVER, LIPID, BMP #### [facility] [address] [place] [address] Dr. Laura Duarte Calcium [Mass/Vol] 9.1 mg/dL Normal 8.5-10.1 [facility] Comment on above: Performed By: #### T SH, LIVER, LIPID, BMP #### [facility] [address] [place] [address] Dr. Laura Duarte Chloride [Moles/Vol] 106 mmol/L Normal 98-[address] [facility] Comment on above: Performed By: #### T SH, LIVER, LIPID, BMP #### [facility] [address] [place] [address] Dr. Laura Duarte CO2 [Moles/Vol] 24.5 mmol/L Normal 21.0-32.0 [facility] Comment on above: Performed By: #### T SH, LIVER, LIPID, BMP #### [facility] [address] [place] [address] Dr. Laura Duarte Creatinine [Mass/Vol] 0.70 mg/dL Normal 0.55-1.[address] [facility] Comment on above: Performed By: #### T SH, LIVER, LIPID, BMP #### [facility] [address] [address] [address] Laura Duarte EGFR-AF JORDANIAN >60 Normal >=60 [facility] Comment on above: Performed By: #### T SH, LIVER, LIPID, BMP #### [facility] [address] [address] [address] Laura Duarte EGFR-NON AF JORDANIAN >60 Normal >=[address] [facility] Comment on above: Performed By: #### T SH, LIVER, LIPID, BMP #### [facility] [address] [address] [address] Laura Duarte Glucose [Mass/Vol] 94 mg/dL Normal 74-106 [facility] Comment on above: Performed By: #### T SH, LIVER, LIPID, BMP #### [facility] [address] [place] [address] Dr. Laura Duarte Potassium [Moles/Vol] 3.9 mmol/L Normal 3.5-5.[address] [facility] Comment on above: Performed By: #### T SH, LIVER, LIPID, BMP #### [facility] [address] [address] [address] Laura Duarte Sodium [Moles/Vol] 139 mmol/L Normal 136-145 [facility] Comment on above: Performed By: #### T SH, LIVER, LIPID, BMP #### [facility] [address] [address] [address] Laura Duarte Urea nitrogen [Mass/Vol] 7.0 mg/dL Normal 7.0-18.[address] [facility] Comment on above: Performed By: #### T SH, LIVER, LIPID, BMP #### [facility] [address] [place] [address] Dr. Laura Duarte Urea nitrogen/Creatinine [Mass ratio] 10.0 mg/mg Normal [facility] Comment on above: Performed By: #### T SH, LIVER, LIPID, BMP #### [facility] [address] [address] [address] Laura Duarte TSHon 03-30-2022 TSH 1.039 uIU/mL Normal 0.358-3.740 [facility] Comment on above: Performed By: #### T SH, LIVER, LIPID, BMP #### [facility] [address] [place], [place] [address] Dr. Laura Duarte Covid-19 PCR ([facility])on 02-07 SARS-CoV-2 (COVID-19) RNA MARY+probe Ql (Unsp spec) Not detected Normal NOT DETECTED [facility] Comment on above: Result Comment: [...] for this test is supported by the Police Lieutenant Patrol of Health and Human Service's declaration that [...] Performed By: #### P TT, PT #### [facility] [address] [place], [place] [address] Dr. Laura Duarte XR CHEST 1 Von [...] MATEUS BUTCHER Date: 2022-02-24 23:55 Normal [facility] COVID-19, RapidOrdered By: Sonu Srinivasan on 02-13-2021 SARS-CoV-2 (COVID-19) RNA MARY+probe Ql (Unsp spec) Not detected Not Detected [employer] Phone: Comment on above: Rapid NAAT: The [...] management decisions. Fact sheet for Healthcare Providers: https://www.fda.gov/media/642811/download Fact sheet for Patients: https://www.fda.gov/media/539736/download Methodology: Isothermal Nucleic Acid Amplification Specimen Description .NASOPHARYNGEAL SWAB [employer] Phone: [employer] Phone: CBC Auto DifferentialOrdered By: Avinash Kee on 10-25-2020 Absolute Eos # <0.03 [employer] [facility] Work Phone: Absolute Immature Granulocyte 0.04 [employer] Work Phone: Absolute Lymph # 2.18 [employer] [facility] Work Phone: Absolute [place] # 0.75 [facility] Work Phone: Basophils (Bld) [#/Vol] 10*3/uL [employer] Work Phone: Basophils/100 WBC (Bld) 0 % 0 - 2 % [employer] Phone: Differential Type NOT REPORTED [employer] Phone: Eosinophils/100 WBC (Bld) 0 % Low 1 - 4 % [employer] Phone: Hematocrit (Bld) [Volume fraction] 43.1 % 36.3 - 47.1 % [employer] Phone: Hemoglobin.gastrointes tinal spec 1 Ql (Stl) 13.9 g/dL 11.9 - 15.1 g/dL [employer] Phone: Immature granulocytes/100 WBC (Bld) 1 % High 0 [employer] Phone: Interpretation and review of laboratory results Abnormal [employer] Phone: Lymphocytes/100 WBC (Bld) 29 % 24 - 43 % [employer] Phone: MCH (RBC) [Entitic mass] 27.4 pg 25.2 - 33.5 pg [employer] Phone: MCHC (RBC) [Mass/Vol] 32.3 g/dL 28.4 - 34.8 g/dL [employer] Phone: MCV (RBC) [Entitic vol] 84.8 fL 82.6 - 102.9 fL [employer] Phone: Monocytes/100 WBC (Bld) 10 % 3 - 12 % [employer] Phone: NRBC Automated 0.0 0.0 per 100 WBC [employer] Phone: Platelet distribution width (Bld) [Ratio] 13.3 % 11.8 - 14.4 % [employer] Phone: Platelet Estimate NOT REPORTED [employer] Phone: Platelet mean volume (Bld) [Entitic vol] 9.7 fL 8.1 - 13.5 fL [employer] Phone: Platelets (Bld) [#/Vol] 282 10*3/uL [employer] Phone: RBC (Bld) [#/Vol] 5.08 10*6/uL 3.95 - 5.1 1 m/uL [employer] Phone: RBC (Bld) [#/Vol] NOT REPORTED [employer] Phone: Segmented neutrophils/100 WBC (Bld) 60 % 36 - 65 % [employer] Work Phone: Segs [employer] Work Phone: WBC (Bld) [#/Vol] 7.5 10*3/uL [employer] Work Phone: WBC (Bld) [#/Vol] NOT REPORTED [employer] Work Phone: Comprehensive Metabolic Pane l w/ Reflex to MGOrdered By: Avinash Kee on 10-25-2020 Albumin [Mass/Vol] 3.9 g/dL 3.5 - 5.2 g/dL [employer] Phone: Albumin/Globulin [Mass ratio] 1.2 {ratio} [employer] Phone: ALP (Bld) [Catalytic activity/Vol] 78 U/L 35 - 104 U/L [employer] Phone: ALT [Catalytic activity/Vol] 34 U/L High 5 - 33 U/L [employer] Phone: Anion gap [Moles/Vol] 13 mmol/L 9 - 17 mmol/L [employer] Phone: AST [Catalytic activity/Vol] 35 U/L High <32 [employer] Phone: Bilirubin [Mass/Vol] 0.23 mg/dL Low 0.3 - 1 .2 mg/dL [employer] Phone: Calcium [Mass/Vol] 9.2 mg/dL 8.6 - 10. 4 mg/dL [employer] Phone: Chloride [Moles/Vol] 99 mmol/L 98 - 10 7 mmol/L [employer] Phone: CO2 [Moles/Vol] 24 mmol/L 20 - 31 mmol/L [employer] Phone: Creatinine [Mass/Vol] 0.73 mg/dL 0.50 - 0.90 mg/dL [employer] Phone: Free PSA/Total PSA [Mass fraction] 7.1 g/dL 6.4 - 8.3 g/dL [employer] Phone: GFR >60 >60 mL/min [employer] Phone: GFR Non- >60 >60 mL/min [employer] Phone: Glucose [Mass/Vol] 119 mg/dL High 70 - 99 mg/dL [employer] Phone: Interpretation and review of laboratory results Abnormal [employer] Phone: Potassium [Moles/Vol] 3.3 mmol/L Low 3.7 - 5.3 mmol/L [employer] Phone: Sodium [Moles/Vol] 136 mmol/L 135 - 144 mmol/L [employer] Phone: Urea nitrogen (BldV) [Mass/Vol] 11 mg/dL 6 - 20 mg/dL [employer] Phone: Urea nitrogen/Creatinine (Bld) [Mass ratio] 15 [employer] Phone: Laboratory - Chemistry and C hemistry - challengeOrdered By: Avinash Kee on 10-25-2020 GFR/1.73 sq M.predicted MDRD (S/P/Bld) [Vol rate/Area] [employer] Phone: Comment on above: Average GFR for 20-2 9 years old: 116 mL/min/1.73sq m Chronic Kidney Disease: <60 mL/min/1.73sq m Kidney failure: <15 mL/min/1.73sq m eGFR calculated using average adult body mass. Additional eGFR calculator available at: http://www.everyArt.Wefunder/multiple_crcl_2012.htm Stage 1: Some kidney damage normal GFR Stage 2: Mild kidney damage GFR 60-89 Stage 3: Moderate kidney damage GFR 30-59 Stage 4: Severe kidney damage GFR 15-29 Stage 5: Severe kidney damage GFR <15 ESRD - chronic treatment by dialysis or transplant COVID-19, Rapidon 10-20-2020 Interpretation and review of laboratory results Abnormal [employer] Phone: SARS-CoV-2, Rapid DETECTED Abnormal Not Detected [employer] Phone: Comment on above: Rapid NAAT: The [...] this assay. Fact sheet for Healthcare Providers: https://www.fda.gov/media/904664/download Fact sheet for Patients: https://www.fda.gov/media/341756/download Methodology: Isothermal Nucleic Acid Amplification Results reported to the appropriate Health Department Specimen Description .NASOPHARYNGEAL SWAB [employer] Phone: XR CHEST PORTABLEon 10-20-19 No acute intrathoracic pathology. [employer] Phone: EXAMINATION: ONE XRAY VIEW OF THE CHEST 10/19/2020 11:23 pm COMPARISON: 06/10/2015 HISTORY: ORDERING SYSTEM PROVIDED HISTORY: shortness of breath TECHNOLOGIST PROVIDED HISTORY: shortness of breath FINDINGS: The cardiomediastinal silhouette and hilar contours are normal. The lungs are clear with no focal consolidation, pleural effusion or pneumothorax. The overlying soft tissue and osseous structures appear unremarkable. [employer] Phone: [place], pn Incoming Radiant Results From [employer] - 10/19/2020 11:48 PM EDT EXAMINATION: ONE [...] appear unremarkable. IMPRESSION: No acute intrathoracic pathology. [facility] Work Phone: Vital Signs Date Time Vital Sign Value Performing Clinician Facility 09-22-2024 12:55-0400 Body temperature 98.5 [degF] [facility] 09-22-2024 12:55-0400 Diastolic blood pressure 82 mm[Hg] [facility] 09-22-2024 12:55-0400 Heart rate 104 /min [facility] 09-22-2024 12:55-0400 SaO2% (BldA) [Mass fraction] 96 % [facility] 09-22-2024 12:55-0400 Systolic blood pressure 127 mm[Hg] [facility] 09-06-2024 10:30-0500 Body height 172.7 cm Zoran Flores MD Work Phone: [facility] 09-06-2024 10:30-0500 Body mass index (BMI) [Ratio] 44.85 kg/m2 Zoran Flores MD Work Phone: [facility] 09-06-2024 10:30-0500 Body temperature 98.4 [degF] Zoran Flores MD Work Phone: [facility] 09-06-2024 10:30-0500 Body weight 133.81 kg Zoran Flores MD Work Phone: [facility] 09-06-2024 10:30-0500 Diastolic blood pressure 92 mm[Hg] Zoran Flores MD Work Phone: [facility] 09-06-2024 10:30-0500 Heart rate 64 /min Zoran Flores MD Work Phone: [facility] 09-06-2024 10:30-0500 Respiratory rate 22 /min Zoran Flores MD Work Phone: [facility] 09-06-2024 10:30-0500 SaO2% (BldA) [Mass fraction] 98 % Zoran Flores MD Work Phone: [facility] 09-06-2024 10:30-0500 Systolic blood pressure 134 mm[Hg] Zoran Flores MD Work Phone: [facility] 08-07-2024 08:07-0500 Body height 172.7 cm Zoran Flores MD Work Phone: [facility] 08-07-2024 08:07-0500 Body mass index (BMI) [Ratio] 46.22 kg/m2 Zoran Flores MD Work Phone: [facility] 08-07-2024 08:07-0500 Body temperature 97.81 [degF] Zoran Flores MD Work Phone: [facility] 08-07-2024 08:07-0500 Body weight 137.89 kg Zoran Flores MD Work Phone: [facility] 08-07-2024 08:07-0500 Diastolic blood pressure 64 mm[Hg] Zoran Flores MD Work Phone: [facility] 08-07-2024 08:07-0500 Heart rate 88 /min Zoran Flores MD Work Phone: [facility] 08-07-2024 08:07-0500 Respiratory rate 22 /min Zoran Flores MD Work Phone: [facility] 08-07-2024 08:07-0500 SaO2% (BldA) [Mass fraction] 98 % Zoran Flores MD Work Phone: [facility] 08-07-2024 08:07-0500 Systolic blood pressure 128 mm[Hg] Zoran Flores MD Work Phone: [facility] 07-13-2024 11:45-0500 Body height 172.72 cm Zoran Flores MD Work Phone: [facility] 07-13-2024 11:45-0500 Body mass index (BMI) [Ratio] 46.2 kg/m2 Zoran Flores MD Work Phone: [facility] 07-13-2024 11:45-0500 Body temperature 98.4 [degF] Zoran Flores MD Work Phone: [facility] 07-13-2024 11:45-0500 Body weight 137.89 kg Zoran Flores MD Work Phone: [facility] 07-13-2024 11:45-0500 Diastolic blood pressure 91 mm[Hg] Zoran Flores MD Work Phone: [facility] 07-13-2024 11:45-0500 Heart rate 99 /min Zoran Flores MD Work Phone: [facility] 07-13-2024 11:45-0500 Respiratory rate 18 /min Zoran Flores MD Work Phone: [facility] 07-13-2024 11:45-0500 SaO2% (BldA) [Mass fraction] 97 % Zoran Flores MD Work Phone: [facility] 07-13-2024 11:45-0500 Systolic blood pressure 142 mm[Hg] Zoran Flores MD Work Phone: [facility] 07-08-2024 14:19-0500 Body height 172.7 cm Zoran Flores MD Work Phone: [facility] 07-08-2024 14:19-0500 Body mass index (BMI) [Ratio] 46.38 kg/m2 Zoran Flores MD Work Phone: [facility] 07-08-2024 14:19-0500 Body temperature 96.6 [degF] Zoran Flores MD Work Phone: [facility] 07-08-2024 14:19-0500 Body weight 138.35 kg Zoran Flores MD Work Phone: [facility] 07-08-2024 14:19-0500 Diastolic blood pressure 90 mm[Hg] Zoran Flores MD Work Phone: [facility] 07-08-2024 14:19-0500 Heart rate 108 /min Zoran Flores MD Work Phone: [facility] 07-08-2024 14:19-0500 Respiratory rate 22 /min Zoran Flores MD Work Phone: [facility] 07-08-2024 14:19-0500 SaO2% (BldA) [Mass fraction] 95 % Zoran Flores MD Work Phone: [facility] 07-08-2024 14:19-0500 Systolic blood pressure 148 mm[Hg] Zoran Flores MD Work Phone: [facility] 06-18-2024 14:30-0500 Diastolic blood pressure 94 mm[Hg] Zoran Flores MD Work Phone: [facility] 06-18-2024 14:30-0500 Heart rate 81 /min Zoran Flores MD Work Phone: [facility] 06-18-2024 14:30-0500 Respiratory rate 16 /min Zoran Flores MD Work Phone: [facility] 06-18-2024 14:30-0500 SaO2% (BldA) [Mass fraction] 100 % Zoran Flores MD Work Phone: [facility] 06-18-2024 14:30-0500 Systolic blood pressure 147 mm[Hg] Zoran Flores MD Work Phone: [facility] 06-18-2024 12:14-0500 Body height 172.72 cm Zoran Flores MD Work Phone: [facility] 06-18-2024 12:14-0500 Body weight 130.63 kg Zoran Flores MD Work Phone: [facility] 04-05-2024 10:23-0400 Body height 172.7 cm Zoran Flores MD Work Phone: [facility] 04-05-2024 10:23-0400 Body mass index (BMI) [Ratio] 44.85 kg/m2 Zoran Flores MD Work Phone: [facility] 04-05-2024 10:23-0400 Body temperature 97.11 [degF] Zoran Flores MD Work Phone: [facility] 04-05-2024 10:23-0400 Body weight 133.81 kg Zoran Flores MD Work Phone: [facility] 04-05-2024 10:23-0400 Diastolic blood pressure 84 mm[Hg] Zoran Flores MD Work Phone: [facility] 04-05-2024 10:23-0400 Heart rate 106 /min Zoran Flores MD Work Phone: [facility] 04-05-2024 10:23-0400 Respiratory rate 20 /min Zoran Flores MD Work Phone: [facility] 04-05-2024 10:23-0400 SaO2% (BldA) [Mass fraction] 98 % Zoran Flores MD Work Phone: [facility] 04-05-2024 10:23-0400 Systolic blood pressure 160 mm[Hg] Zoran Flores MD Work Phone: [facility] 04-01-2024 15:08-0400 Body height 167.64 cm [facility] 04-01-2024 15:08-0400 Body mass index (BMI) [Ratio] 50.5 kg/m2 [facility] 04-01-2024 15:08-0400 Body weight 141.97 kg [facility] 03-21-2024 14:42-0400 Body height 174 cm Lyndsay Jett [employer] Work Phone: [facility] 03-21-2024 14:42-0400 Body mass index (BMI) [Ratio] 43.3 kg/m2 Lyndsay Krotzer [employer] Work Phone: [facility] 03-21-2024 14:42-0400 Body weight 131.09 kg Lyndsay Hardeepotzer [employer] Work Phone: [facility] 03-21-2024 14:42-0400 Diastolic blood pressure 98 mm[Hg] Lyndsay Hardeepotzer [employer] Work Phone: [facility] 03-21-2024 14:42-0400 Systolic blood pressure 142 mm[Hg] Lyndsay Hardeepotzer [employer] Work Phone: [facility] 2024 09:39-0400 Body height 174 cm Cassie Greenin [employer] Work Phone: [facility] 2024 09:39-0400 Body mass index (BMI) [Ratio] 43.21 kg/m2 Cassie Greenin [employer] Work Phone: [facility] 2024 09:39-0400 Body weight 130.82 kg Cassie Greenin [employer] Work Phone: [facility] 2024 09:39-0400 Diastolic blood pressure 96 mm[Hg] Cassie Greenin [employer] Work Phone: [facility] 2024 09:39-0400 Systolic blood pressure 144 mm[Hg] Cassie Greenin [employer] Work Phone: [facility] 10-24-2023 15:06-0400 Body height 168.28 cm [facility] 10-24-2023 15:06-0400 Body mass index (BMI) [Ratio] 50.2 kg/m2 [facility] 10-24-2023 15:06-0400 Body weight 142.2 kg [facility] 10-24-2023 15:06-0400 Diastolic blood pressure 91 mm[Hg] [facility] 10-24-2023 15:06-0400 Heart rate 94 /min [facility] 10-24-2023 15:06-0400 Respiratory rate 16 /min [facility] 10-24-2023 15:06-0400 SaO2% (BldA) [Mass fraction] 96 % [facility] 10-24-2023 15:06-0400 Systolic blood pressure 129 mm[Hg] [facility] 09-21-2023 09:42-0400 Body height 172.72 cm [facility] 09-21-2023 09:42-0400 Body mass index (BMI) [Ratio] 47.1 kg/m2 [facility] 09-21-2023 09:42-0400 Body temperature 98.7 [degF] [facility] 09-21-2023 09:42-0400 Body weight 140.61 kg [facility] 09-21-2023 09:42-0400 Heart rate 98 /min [facility] 09-21-2023 09:42-0400 Respiratory rate 18 /min [facility] 09-21-2023 09:42-0400 SaO2% (BldA) [Mass fraction] 97 % [facility] 04-21-2023 10:10-0400 Body height 171.45 cm Maribel Lewmond Other [employer] [facility] [employer] Other 04-21-2023 10:10-0400 Body mass index (BMI) [Ratio] 46.29 kg/m2 Maribel Masha Other [employer] Other 04-21-2023 10:10-0400 Body temperature 97.2 [degF] Maribel Masha Other [employer] Other 04-21-2023 10:10-0400 Body weight 136.08 kg Maribel Masha Other [employer] Other 04-21-2023 10:10-0400 Diastolic blood pressure 88 mm[Hg] Maribel Flanagan Other [employer] Other 04-21-2023 10:10-0400 Respiratory rate 17 /min Maribel Flanagan Other [employer] Other 04-21-2023 10:10-0400 SaO2% (BldA) [Mass fraction] 98 % Maribel Flanagan Other [employer] Other 04-21-2023 10:10-0400 Systolic blood pressure 156 mm[Hg] Maribel Flanagan Other [employer] Other 11-02-2021 14:15-0400 Diastolic blood pressure 96 mm[Hg] Michael Wiseman MD Work Phone: [employer] 11-02-2021 14:15-0400 Heart rate 99 /min Michael Wiseman MD Work Phone: [employer] 11-02-2021 14:15-0400 Systolic blood pressure 141 mm[Hg] Michael Wiseman MD Work Phone: [employer] 11-02-2021 14:13-0400 Respiratory rate 16 /min Michael Wiseman MD Work Phone: [employer] 02-18-2021 20:25-0400 Body temperature 97.2 [degF] Enrique Srinivasan MD Work Phone: [employer] Work Phone: 02-18-2021 20:25-0400 Diastolic blood pressure 84 mm[Hg] Enrique Srinivasan MD Work Phone: [employer] Work Phone: 02-18-2021 20:25-0400 Heart rate 102 /min Enrique Srinivasan MD Work Phone: [employer] Work Phone: 02-18-2021 20:25-0400 Respiratory rate 16 /min Enrique Srinivasan MD Work Phone: [employer] Work Phone: 02-18-2021 20:25-0400 SaO2% (BldA) [Mass fraction] 96 % Enrique Srinivasan MD Work Phone: [employer] Work Phone: 02-18-2021 20:25-0400 Systolic blood pressure 128 mm[Hg] Enrique Srinivasan MD Work Phone: [employer] Work Phone: 02-13-2021 22:45-0400 Diastolic blood pressure 87 mm[Hg] Enrique Srinivasan MD Work Phone: [employer] Work Phone: 02-13-2021 22:45-0400 Systolic blood pressure 186 mm[Hg] Enrique Srinivasan MD Work Phone: [employer] Work Phone: 02-13-2021 21:55-0400 Body height 172.7 cm Enrique Srinivasan MD Work Phone: [employer] Work Phone: 02-13-2021 21:55-0400 Body mass index (BMI) [Ratio] 45.61 kg/m2 Enrique Srinivasan MD Work Phone: [employer] Work Phone: 02-13-2021 21:55-0400 Body weight 136.08 kg Enrique Srinivasan MD Work Phone: [employer] Work Phone: 02-13-2021 21:55-0400 Heart rate 103 /min Enrique Srinivasan MD Work Phone: [employer] Work Phone: 02-13-2021 21:55-0400 Respiratory rate 18 /min Enrique Srinivasan MD Work Phone: [employer] Work Phone: 02-13-2021 21:55-0400 SaO2% (BldA) [Mass fraction] 98 % Enrique Srinivasan MD Work Phone: [employer] Work Phone: 12-16-2020 23:20-0400 Diastolic blood pressure 89 mm[Hg] Adi Andes DO Work Phone: [employer] Work Phone: 12-16-2020 23:20-0400 SaO2% (BldA) [Mass fraction] 95 % Adi Andes Consignd Work Phone: [employer] Work Phone: 12-16-2020 23:20-0400 Systolic blood pressure 163 mm[Hg] Adi Andes Consignd Work Phone: [employer] Work Phone: 12-16-2020 22:25-0400 Body mass index (BMI) [Ratio] 46.98 kg/m2 Adi Andes Consignd Work Phone: [employer] Work Phone: 12-16-2020 22:25-0400 Body temperature 97.3 [degF] Adi Andes DO Work Phone: [employer] Work Phone: 12-16-2020 22:25-0400 Body weight 140.16 kg Adi Andes DO Work Phone: [employer] Work Phone: 12-16-2020 22:25-0400 Heart rate 101 /min Adi Andes DO Work Phone: [employer] Phone: 10-26-2020 00:30-0400 SaO2% (BldA) [Mass fraction] 97 % Avinash Kee MD Work Phone: [employer] Phone: 10-26-2020 00:00-0400 Diastolic blood pressure 56 mm[Hg] Avinash Kee MD Work Phone: [employer] Work Phone: 10-26-2020 00:00-0400 Systolic blood pressure 145 mm[Hg] Avinash Kee MD Work Phone: [employer] Work Phone: 10-25-2020 22:11-0400 Body temperature 97.2 [degF] Avinash Kee MD Work Phone: [employer] Work Phone: 10-25-2020 22:11-0400 Heart rate 101 /min Avinash Kee MD Work Phone: [employer] Work Phone: 10-25-2020 22:11-0400 Respiratory rate 17 /min Avinash Kee MD Work Phone: [employer] Work Phone: 10-20-2020 00:40-0400 Body Temperature 97.5 [degF] [employer] Work Phone: 10-20-2020 00:40-0400 BP Diastolic 90 mm[Hg] [employer] Work Phone: 10-20-2020 00:40-0400 BP Systolic 103 mm[Hg] [employer] Work Phone: 10-20-2020 00:40-0400 Pulse (Heart Rate) 103 /min [employer] Work Phone: 10-20-2020 00:40-0400 Pulse Oximetry 95 % [employer] Work Phone: 10-20-2020 00:40-0400 Respiratory Rate 22 /min [employer] Work Phone: 10-19-2020 23:06-0400 BMI (Body Mass Index) 42.57 kg/m2 [employer] Work Phone: 10-19-2020 23:06-0400 Body weight 127.01 kg [employer] Work Phone: Encounters Encounter Date Encounter Type Care Provider Facility Start: 09-27-2024 End: 09-27-2024 ambulatory ZORAN FLORES Not Available Start: 09-22-2024 End: 09-22-2024 ambulatory [facility] Work Phone: Start: 09-22-2024 End: 09-22-2024 Patient encounter procedure [facility] Work Phone: Start: 09-06-2024 End: 09-06-2024 ambulatory ZORAN FLORES Not Available Start: 09-06-2024 End: 09-06-2024 Office outpatient visit 25 minutes Zoran Flores MD Work Phone: [facility] Comment on above: 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); Palpitation; Benign essential hypertension (CMS/HCC); Mood disorder (CMS/HCC); LAMIN (generalized anxiety disorder) (CMS/HCC); Class 3 severe obesity due to excess calories with serious comorbidity and body mass index (BMI) of 45.0 to 49.9 in adult (CMS/HCC) Start: 08-07-2024 End: 08-07-2024 Bamboo flowsheet Zoran Flores MD Work Phone: [facility] Start: 08-07-2024 End: 08-07-2024 Connor flowssom Flores MD Work Phone: [facility] Start: 08-07-2024 End: 08-07-2024 ambulatory ZORAN FLORES Not Available Start: 08-07-2024 End: 08-07-2024 Office outpatient visit 25 minutes Zoran Flores MD Work Phone: [facility] Comment on above: Benign essential hyp ertension (CMS/HCC) (Primary Dx); Palpitation; Lightheaded; Attention deficit disorder (ADD) without hyperactivity; Class 3 severe obesity due to excess calories with serious comorbidity and body mass index (BMI) of 45.0 to 49.9 in adult (CMS/HCC); Prediabetes Start: 08-04-2024 Non-patient / Non-visit [facility] Work Phone: Start: 08-01-2024 End: 08-01-2024 Refill Lyndsay Jett [employer] Work Phone: [facility] Comment on above: Vulvar itching Irritant contact jose matitis due to other chemical products Start: 07-13-2024 End: 07-13-2024 ambulatory Zoran Flores MD Work Phone: [facility] Work Phone: Start: 07-13-2024 End: 07-13-2024 Patient encounter procedure Zoran Flores MD Work Phone: [facility] [place] Work Phone: Start: 07-08-2024 End: 07-08-2024 Office outpatient visit 25 minutes Zoran Flores MD Work Phone: [facility] Comment on above: Benign essential hyp ertension (CMS/HCC) (Primary Dx); Palpitation; Attention deficit disorder (ADD) without hyperactivity; Mood disorder (CMS/HCC); LAMIN (generalized anxiety disorder) ([facility]/HCC); Annual physical exam Start: 07-08-2024 End: 07-08-2024 Patient encounter procedure Zoran Flores MD Work Phone: [facility] Start: 07-08-2024 End: 07-08-2024 ambulatory ZORAN FLORES Not Available Start: 07-08-2024 End: 07-08-2024 Bamboo flowsheet Zoran Flores MD Work Phone: [facility] Start: 07-08-2024 End: 07-08-2024 Bamboo flowssom Flores MD Work Phone: [facility] Start: 06-18-2024 Non-patient / Non-visit Zoran benoit MD Work Phone: [facility] Work Phone: Start: 06-18-2024 End: 06-18-2024 Admission to same day surgery center Zoran Flores MD Work Phone: [facility] Work Phone: Start: 06-18-2024 End: 06-18-2024 ambulatory Zoran Flores Facility:[facility] Start: 05-06-2024 End: 05-06-2024 Refill Zoran Flores MD Work Phone: [facility] Comment on above: Mild persistent asth ma, uncomplicated (CMS/HCC) Start: 04-15-2024 End: 04-15-2024 Patient encounter procedure MD Zoran Flores Work Phone: [facility] [place] Work Phone: Start: 04-15-2024 End: 04-15-2024 ambulatory MD Zoran Flores Work Phone: [facility] Work Phone: Start: 04-05-2024 End: 04-05-2024 Bamboo flowsheet Zoran Flores MD Work Phone: [facility] Start: 04-05-2024 End: 04-05-2024 Bamboo flowssom Flores MD Work Phone: [facility] Start: 04-05-2024 End: 04-05-2024 ambulatory ZORAN FLORES Not Available Start: 04-05-2024 End: 04-05-2024 Office outpatient visit 25 minutes Zoran Flores MD Work Phone: [facility] Comment on above: Mood disorder (CMS/H CC) (Primary Dx); LAMIN (generalized anxiety disorder) (CMS/HCC); Blood pressure elevated without history of HTN Start: 04-01-2024 End: 04-01-2024 ambulatory [facility] Work Phone: Start: 04-01-2024 End: 04-01-2024 Patient encounter procedure [facility] Work Phone: Start: 03-27-2024 End: 03-29-2024 Clinisync Result Encounter Generic External Data Provider [facility] External Department Unsolicited Start: 03-27-2024 End: 03-29-2024 Clinisync Result Encounter Generic External Data Provider [facility] External Department Unsolicited Start: 03-21-2024 End: 03-21-2024 ambulatory LYNDSAY Olsen VALERIA [facility] Start: 03-21-2024 End: 03-21-2024 [facility] Start: 03-21-2024 End: 03-21-2024 Office outpatient visit 15 minutes Lyndsaynestor Jett [employer] Work Phone: [facility] Comment on above: Screening for STD (s exually transmitted disease) (Primary Dx); Vulvar itching; Urinary frequency Start: 02-29-2024 End: 03-03-2024 Clinisync Result Encounter Generic External Data Provider [facility] External Department Unsolicited Start: 02-29-2024 End: 03-03-2024 Clinisync Result Encounter Generic External Data Provider [facility] External Department Unsolicited Start: 02-25-2024 End: 02-25-2024 Letter encounter Heather Taylor MD Work Phone: [facility] Start: 2024 End: 2024 ambulatory CASSIE JUARES [facility] Start: 2024 End: [address] [facility] Start: 2024 End: 2024 [facility] Start: 2024 End: 2024 Office outpatient new 30 minutes Cassie Raúl Trent [employer] Work Phone: [facility] Comment on above: Screening for STD (s exually transmitted disease) (Primary Dx); Irritant contact dermatitis due to other chemical products Start: 11-22-2023 End: 11-22-2023 ambulatory SHAIKH CLINT Not Available Start: 10-26-2023 End: 10-26-2023 ambulatory [facility] Work Phone: Start: 10-26-2023 End: 10-26-2023 Patient encounter procedure [facility] Work Phone: Start: 10-24-2023 End: 10-24-2023 ambulatory [facility] Work Phone: Start: 10-24-2023 End: 10-24-2023 Patient encounter procedure [facility] Work Phone: Start: 09-21-2023 End: 09-21-2023 ambulatory [facility] Work Phone: Start: 09-21-2023 End: 09-21-2023 Patient encounter procedure [facility] [place] Work Phone: Start: 09-12-2023 End: 09-12-2023 ambulatory [facility] Facility:[facility] Start: 08-31-2023 Refill Michael dominguez MD Other Phone: [facility] (ENT) Comment on above: Refill Start: 08-24-2023 Orders Only Zoran Lewis Work Phone: [facility] Comment on above: Right kidney mass (P rimary Dx) Start: 08-22-2023 Orders Only Zoran Lewis Work Phone: [facility] Comment on above: Right kidney mass (P rimary Dx) Start: 07-27-2023 Non-patient / Non-visit [facility] [employer] Work Phone: Start: 07-27-2023 Patient encounter procedure Zoran Flores MD Work Phone: [facility] Start: 07-04-2023 End: 07-04-2023 ambulatory Jeremiah Chen Other [facility] [employer] Other Start: 07-04-2023 Telephone encounter Jeremiah Huggins ck [facility] Start: 04-21-2023 Office outpatient ne w 10 minutes Maribel Flanagan [facility] Start: 04-21-2023 End: 04-21-2023 ambulatory MD Zoran Flores Work Phone: [facility] [employer] Other Start: 04-21-2023 End: 04-21-2023 Patient encounter procedure MD Zoran Flores Work Phone: [facility] Work Phone: Start: 04-18-2023 Refill Michael dominguez MD Work Phone: [facility] (ENT) Comment on above: Refill Start: 04-04-2023 Emergency department patient visit ZORAN FLORES [facility] Start: 11-28-[address] DOCTOR OLIVIA Facility :[facility] Start: 11-18-2022 End: 11-19-[address] ZORAN FLORES Facility:[facility] Start: 10-14-2022 Orders Only Michael dominguez MD Work Phone: [facility] Ot[facility] (ENT) Comment on above: Referral to [facility] Start: 08-07-2022 Refill Michael dominguez MD Work Phone: [facility] (ENT) Comment on above: Refill Start: 05-17-2022 Refill Michael dominguez MD Work Phone: [facility] (ENT) Comment on above: Refill Start: 04-01-2022 Encounter for genera l adult medical examination without abnormal findings DR ZORAN FLORES [facility] Start: 03-30-2022 End: 03-31-[address] ZORAN FLORES Facility:[facility] Start: 03-30-2022 End: 03-31-2022 Encounter for general adult medical examination without abnormal findings DR ZORAN FLORES Facility:[facility] Start: 02-25-2022 End: 02-25-[address] ZORAN FLORES Facility:[facility] Start: 11-02-2021 End: 11-02-2021 Office outpatient visit 25 minutes Michael Wiseman MD Work Phone: [facility] (ENT) Comment on above: Chronic pansinusitis (Primary Dx); Anosmia; Multiple nasal polyps Start: 02-18-2021 End: 02-18-2021 Emergency department patient visit Enrique Srinivasan MD Work Phone: [facility] Comment on above: Chronic sinusitis, u nspecified location (Primary Dx); Post-op pain Start: 02-13-2021 End: 02-13-2021 Emergency department patient visit Enrique Srinivasan MD Work Phone: [facility] Comment on above: Close exposure to [place] VID-19 virus (Primary Dx) Start: 12-16-2020 End: 12-16-2020 Emergency department patient visit Adi Berg DO Work Phone: [facility] Comment on above: Mild intermittent as thma with exacerbation (Primary Dx) Start: 10-25-2020 End: 10-26-2020 Emergency department patient visit Avinash Kee MD Work Phone: [facility] Comment on above: Nausea vomiting and diarrhea (Primary Dx); COVID-19 virus infection Start: 10-19-2020 End: 10-20-2020 Emergency department patient visit Enrique Srinivasan Work Phone: [facility] Comment on above: COVID-19 (Primary [...] ion [Identifier] in Cervix by Cyto stain Cassie Juares [employer]SUMER [employer] Work Phone: Plan of Treatment Date Care Activity Detail Author Start: 2047 Shingles (RZV) Vaccine (1 of 2) Shingles (RZV) Vaccine (1 of 2) [facility] Start: 10-16-2031 DTaP,Tdap and Td Vaccines (4 - Td or Tdap) DTaP,Tdap and Td Vaccines (4 - Td or Tdap) [facility] Start: 10-16-2031 Tetanus vaccination [facility] Start: 03-21-2025 Adult BMI Screening Adult BMI Screening [facility] Start: 03-21-2025 Tobacco Screening Tobacco Screening [facility] Start: 02-21-2025 Adult BMI Screening Adult BMI Screening [facility] Start: 02-21-2025 Tobacco Screening Tobacco Screening [facility] Start: 09-27-2024 End: 09-27-2024 Patient encounter procedure 09/27/2024 10:45 AM EDT Office Visit [facility] [address] [place] [address] Zoran Flores MD [address] [place] [phone] [facility] Start: 09-05-2024 End: 09-05-2024 Patient encounter procedure 09/05/2024 10:45 AM EST Office Visit [facility] [address] [place] [address] Zoran Flores MD [address] [place] [phone] [facility] Start: 08-09-2024 End: 08-09-2024 Patient encounter procedure 08/09/2024 9:45 AM EST Office Visit [facility] [address] [place] [address] Zoran Flores MD [address] [place] [phone] [facility] Start: 07-08-2024 End: 07-08-2024 Patient encounter procedure 07/08/2024 2:15 PM EST Office Visit [facility] [address] [place] [address] Zoran Flores MD [address] [place] [phone] Arrived [facility] Comment on above: Arrived Start: 07-08-2024 End: 07-08-2025 Basic metabolic 1998 panel - Serum or Plasma Basic metabolic panel Lab Routine Annual physical exam Expected: 07/08/2024 (Approximate), Expires: 07/08/2025 [facility] Comment on above: Expected: 07/08/2024 (Approximate), Expi res: 07/08/2025 Start: 07-08-2024 End: 07-08-2025 CBC W Auto Differential panel - Blood CBC and differential Lab Routine Annual physical exam Expected: 07/08/2024 (Approximate), Expires: 07/08/2025 [facility] Comment on above: Expected: 07/08/2024 (Approximate), Expi res: 07/08/2025 Start: 07-08-2024 End: 07-08-2025 Hemoglobin A1c/Hemoglobin.total in Blood Hemoglobin A1c Lab Routine Annual physical exam Expected: 07/08/2024 (Approximate), Expires: 07/08/2025 [facility] Comment on above: Expected: 07/08/2024 (Approximate), Expi res: 07/08/2025 Start: 07-08-2024 End: 07-08-2025 Hepatic function 2000 panel - Serum or Plasma Hepatic function panel Lab Routine Annual physical exam Expected: 07/08/2024 (Approximate), Expires: 07/08/2025 [facility] Comment on above: Expected: 07/08/2024 (Approximate), Expi res: 07/08/2025 Start: 07-08-2024 End: 07-08-2025 Holter monitor study Holter monitor Imaging Routine Palpitation Expected: 07/08/2024 (Approximate), Expires: 07/08/2025 [facility] Work Phone: Comment on above: Expected: 07/08/2024 (Approximate), Expi res: 07/08/2025 Start: 07-08-2024 End: 07-08-2025 Lipid 1996 panel - Serum or Plasma Lipid panel Lab Routine Annual physical exam Expected: 07/08/2024 (Approximate), Expires: 07/08/2025 [facility] Comment on above: Expected: 07/08/2024 (Approximate), Expi res: 07/08/2025 Start: 07-08-2024 End: 07-08-2025 TSH W/REFLEX TO FT4 TSH W/REFLEX TO FT4 Lab Routine Annual physical exam Expected: 07/08/2024 (Approximate), Expires: 07/08/2025 [facility] Comment on above: Expected: 07/08/2024 (Approximate), Expi res: 07/08/2025 Start: 06-18-2024 [facility] Start: 05-09-2024 End: 05-09-2024 Patient encounter procedure 05/09/2024 11:00 AM EDT Office [facility] [address] [place] [address] Zoran Flores MD [address] [place] [phone] [facility] Start: 04-22-2024 End: 04-22-2024 Patient encounter procedure 04/22/2024 3:30 PM EDT Office Visit [facility] [address] [place] [address] Lyndsay Jett, CONSUMER [employer] [address] [place] [address] [facility] Start: 04-15-2024 [facility] Start: 04-15-2024 [facility] Start: 04-09-2024 Influenza vaccination Influenza Vaccine (#1) [facility] Start: 04-05-2024 End: 04-05-2024 Patient encounter procedure 04/05/2024 10:15 AM EDT Office Visit [facility] [address] [place] [address] Zoran Flores MD [address] [place] [phone] [facility] Start: 03-21-2024 End: 03-21-2025 Bacteria identified in Urine by Culture [facility] Comment on above: Expected: 03/21/2024 (Approximate), Expi res: 03/21/2025 Start: 03-21-2024 End: 03-21-2025 Chlamydia/GC by PCR [facility] Comment on above: Expected: 03/21/2024 (Approximate), Expi res: 03/21/2025 Start: 03-21-2024 End: 03-21-2025 Urinalysis Urinalysis Lab Routine Urinary frequency Expected: 03/21/2024 (Approximate), Expires: 03/21/2025 [employer] Work Phone: Comment on above: Expected: 03/21/2024 (Approximate), Expi res: 03/21/2025 Start: 03-21-2024 End: 03-21-2025 [facility] Comment on above: Expected: 03/21/2024 (Approximate), Expi res: 03/21/2025 Start: 03-10-2024 Influenza vaccination [facility] Start: 2024 End: 02-21-2025 Chlamydia/GC by PCR Jacoby Swab Chlamydia/GC by PCR Jacoby Swab Microbiology Routine Screening for STD (sexually transmitted disease) Expected: 2024 (Approximate), Expires: 02/21/2025 [employer] Work Phone: Comment on above: Expected: 2024 (Approximate), Expi res: 02/21/2025 Start: 2024 End: 02-21-2025 Vaginitis Panel PCR Vaginitis Panel PCR Microbiology Routine Screening for STD (sexually transmitted disease) Expected: 2024 (Approximate), Expires: 02/21/2025 [employer] Comment on above: Expected: 2024 (Approximate), Expi res: 02/21/2025 Start: 10-17-2023 End: 10-17-2023 Patient encounter procedure 10/17/2023 1:15 PM EDT Office Visit [facility] [address] [place] [address] Zoran Flores MD [address] [place] [address] [facility] Start: 09-04-2023 End: 09-04-2023 Patient encounter procedure 09/04/2023 10:45 AM EST Office Visit [facility] [address] [place] [address] Zoran Flores MD [address] [place] [address] [facility] Start: 04-25-2023 End: 04-25-2023 Patient encounter procedure 04/25/2023 3:00 PM EDT Office Visit [facility]) [address] [place] [id number] Michael Wiseman MD [address] [place] [address] [facility] Start: 03-10-2023 COVID-19 Vaccine ( season) COVID-19 Vaccine ( season) [facility] Start: 03-10-2023 Influenza vaccination Influenza Vaccine (#1) [facility] Start: 06-21-2022 Screening for malignant neoplasm of cervix Pap Smear [facility] Start: 04-09-2022 Influenza vaccination Influenza Vaccine (#1) [facility] Start: 12-07-2021 End: 12-07-2021 Patient encounter procedure 12/07/2021 Office Visit [facility] Michael Wiseman MD [address] [place], [place] [phone] [facility] ([facility]) Start: 03-10-2021 [email or web address] Start: 02-25-2020 DTaP/Tdap/Td vaccine (3 - Td or Tdap) DTaP/Tdap/Td vaccine (3 - Td or Tdap) [employer] Phone: Start: 02-25-2020 DTaP/Tdap/Td vaccine (3 - Td) DTaP/Tdap/Td vaccine (3 - Td) [employer] Phone: Start: 2018 Screening for malignant neoplasm of cervix [facility] Start: 02-23-2016 Hepatitis A (HAV) Vaccine (optional start 19+ years) Hepatitis A (HAV) Vaccine (optional start 19+ years) [facility] Start: 02-23-2016 Hepatitis B vaccination Hepatitis B (HBV) Vaccine (1 of 3 - 19+ 3-dose series) [facility] Start: 2015 Adult BMI Follow Up Plan Adult BMI Follow Up Plan [facility] Start: 2015 Hepatitis C screening Hepatitis C Antibody [facility] Start: 2015 Screening for Chlamydia trachomatis STI Screening (Age 18-24) [facility] Start: 2013 COVID-19 Vaccine (1) COVID-19 Vaccine (1) [employer] Phone: Start: 2013 Screening for Chlamydia trachomatis Chlamydia screen [employer] Phone: Start: 02-23-2012 HIV screening HIV screen [employer] Phone: Start: 2009 COVID-19 Vaccine (1) COVID-19 Vaccine (1) [employer] Phone: Start: 2009 Depression Screening Depression Screening [facility] [employer] [facility] Start: 2002 COVID-19 Vaccine (1) COVID-19 Vaccine (1) [facility] Start: 1998 Varicella vaccine (1 of 2 - 2-dose childhood series) Varicella vaccine (1 of 2 - 2-dose childhood series) [employer] Phone: Start: 1997 COVID-19 Vaccine (#1) COVID-19 Vaccine (#1) [facility] Start: 1997 Hepatitis B vaccination Hepatitis B (HBV) Vaccine (1 of 3 - 3-dose series) [facility] Start: 1997 Hepatitis C screening Hepatitis C screen [employer] Phone: Bacterial cytolethal distending toxin cdt gene [Presence] in Unspecified specimen by MARY with probe detection [facility] Endomysial antibody IgA level [facility] Gliadin peptide IgA Ab [Units/volume] in Serum [facility] Gliadin peptide IgG Ab [Units/volume] in Serum [facility] End: 02-21-2025 Herpes IgG profile Herpes IgG profile Lab Routine Screening for STD (sexually transmitted disease) 1 Occurrences starting 2024 until 02/21/2025 [employer] Comment on above: 1 Occurrences starting 2024 until 02/21/2025 Herpes IgG profile Herpes IgG pr ofile Lab Routine Screening for STD (sexually transmitted disease) 2024 10:38 AM EDT [employer] IgA [Mass/volume] in Serum or Plasma [facility] End: 10-25-2020 Magnesium [Mass/volume] in Serum or Plasma Magnesium Lab Routine Once for 1 Occurrences starting 10/25/2020 until 10/25/2020 [employer] Phone: Comment on above: Once for 1 Occurrences starting 10/26/19 until 10/25/2020 Magnesium [Mass/volu me] in Serum or Plasma Magnesium Lab Routine 10/25/2020 11:08 PM EDT [employer] Phone: Patient Education Hemorrhoids Diverticulosis Know your Meds [facility] Work Phone: End: 02-21-2025 Syphilis Total(Unknown Syphilis Status) Syphilis Total(Unknown Syphilis Status) Lab Routine Screening for STD (sexually transmitted disease) 1 Occurrences starting 2024 until 02/21/2025 [employer] Comment on above: 1 Occurrences starting 2024 until 02/21/2025 Tissue transglutamin ase IgA Ab [Units/volume] in Serum [facility] Tissue transglutamin ase IgG Ab [Units/volume] in Serum [facility] Treponema pallidum IgG+IgM Ab [Presence] in Serum by Immunoassay Syphilis Total(Unknown Syphilis Status) Lab Routine Screening for STD (sexually transmitted disease) 2024 10:38 AM EDT [facility] Immunizations Immunization Date Immunization Notes Care Provider Fa sameer 05-04-2023 Influenza, injectabl e, Madin Adrianna Canine Kidney, preservative free, quadrivalent Michael Wiseman MD Other Phone: [facility] Work Phone: 05-04-2023 influenza virus vaccine, unspecified formulation Cassie Juares CONSUMER [employer] Work Phone: [facility] 10-15-2021 tetanus toxoid, redu anastacio diphtheria toxoid, and acellular pertussis vaccine, adsorbed Michael Wiseman MD Work Phone: [facility] 07-19-2018 Human Papillomavirus 9-valent vaccine Michael Wiseman MD Work Phone: [facility] 03-23-2018 Human Papillomavirus 9-valent vaccine Michael Wiseman MD Work Phone: [facility] 01-16-2018 Human Papillomavirus 9-valent vaccine Michael Wiseman MD Work Phone: [facility] 02-24-2010 tetanus toxoid, redu anastacio diphtheria toxoid, and acellular pertussis vaccine, adsorbed Michael Wiseman MD Work Phone: [facility] 05-31-2005 influenza, seasonal, injectable Michael Wiseman MD Work Phone: [facility] 05-31-2005 influenza virus vaccine, unspecified formulation Michael Wiseman MD Work Phone: [facility] 04-30-2003 influenza, seasonal, injectable Michael Wiseman MD Work Phone: [facility] 05-07-2002 influenza, seasonal, injectable Michael Wiseman MD Work Phone: [facility] 06-08-2001 diphtheria, tetanus toxoids and acellular pertussis vaccine, unspecified formulation Michael Wiseman MD Work Phone: [facility] 06-08-2001 measles, mumps and rubella virus vaccine Michael Wiseman MD Work Phone: [facility] 06-08-2001 poliovirus vaccine, inactivated Michael Wiseman MD Work Phone: [facility] Payers Date Payer Category Payer Self-pay [id number] 2022 Medicaid [id number] 2018 Medicaid [id number] 2016 Unknown [id number] 2013 Unknown ANTHEM - BLUE CR OSS BLUE CROSS/HMO,PPO,POS [id number] 2013-Present [address] [place] [address] PPO [id number] 1997 Unknown [id number] 2.16.840.1.979452.3.579.2.593 1997 Unknown [id number] 2.16.840.1.532521.3.579.2.593 1997 Unknown [id number] 2.16.840.1.393659.3.579.2.593 1997 Unknown [id number] 2.16.840.1.025626.3.579.2.593 1997 Unknown [id number] 2.16.840.1.159618.3.579.2.173 1997 Unknown [id number] 2.16.840.1.453635.3.579.2.1286 1997 Unknown [id number] 2.16.840.1.654507.3.579.2.1286 1997 Unknown [id number] 2.16.840.1.214534.3.579.2.1286 1997 Unknown [id number] 2.16.840.1.705353.3.579.2.1285 1997 Unknown [id number] 2.16.840.1.298182.3.579.2.1285 1997 Unknown [id number] 2.16.840.1.684730.3.579.2.1258 1997 Unknown [id number] 2.16.840.1.586415.3.579.2.1258 1997 Unknown [id number] 2.16.840.1.175694.3.579.2.1258 1997 Unknown [id number] 2.16.840.1.821026.3.579.2.1258 1997 Unknown [id number] 2.16.840.1.161083.3.579.2.1258 1997 Unknown [id number] 2.16.840.1.524105.3.579.2.1258 1997 Unknown [id number] 2.16.840.1.625470.3.579.2.1258 1997 Unknown [id number] 2.16.840.1.605307.3.579.2.1258 1997 Unknown [id number] 2.16.840.1.284841.3.579.2.1258 1997 Unknown [id number] 2.16.840.1.320155.3.579.2.1258 1997 Unknown [id number] 2.16.840.1.063000.3.579.2.1258 1997 Unknown [id number] 2.16.840.1.650759.3.579.2.9 1959 Unknown [id number] 1.2.840.446772.1.13.239.2.7.3.67 [id number] 1959 Unknown [id number] 1.2.840.268384.1.13.239.2.7.3.67 [id number] Unknown [id number] 2.16.840.1.011344.19 Unknown [id number] 2.16.840.1.021538.3.579.2.531 Unknown [id number] 2.16.840.1.037273.3.579.2.531 Social History Date Type Detail Facility Start: 10-19-2020 End: 06-18-2024 Tobacco smoking status IDIS Never smoker [employer] Phone: Start: 10-19-2020 End: 11-22-2023 Tobacco use and exposure Never used [employer] Phone: Start: 10-19-2020 End: 03-21-2024 Alcohol intake Current non-drinker of alcohol (finding) [employer] Phone: Start: 1997 Sex Assigned At Not on file [facility] Phone: Exposure to SARS-CoV -2 (event) Yes [employer] Phone: Exposure to SARS-CoV -2 (event) Not sure [facility] Start: 11-02-2021 End: 07-27-2023 Alcohol intake Current drinker of alcohol (finding) [facility] Start: 11-23-2018 History SDOH Alcohol Comment OCC [facility] Start: 1997 [facility] Start: 09-13-2021 Gender identity Identifies as female gender (finding) [facility] Start: 09-13-2021 Sexual orientation Female homo sexual (finding) [facility] Start: 05-03-2023 End: 11-22-2023 Sex Assigned At [facility] Start: 07-27-2023 End: 11-22-2023 Alcohol intake [facility] How often to you hav e a drink containing alcohol? Monthly or less [facility] Average Number of Drinks Not on file [facility] Start: 05-03-2023 Alcohol Comment caffeine intak e: 1-2 cups per day [facility] Start: 04-05-2024 End: 09-06-2024 Alcoholic beverage intake Lifetime non-drinker (finding) [facility] Start: 07-13-2024 End: 09-22-2024 Sex Female (finding) [facility] NEGATED: Highlighted rowStart: CHERY History of tobacco use Passive smoker [facility] Goals Date Patient Goal Desired Activity /State Clinical Notes 02-13-2021 to 09-06-2024 Zoran Flores MD - 09/06/2024 11:04 AM Perlita Flores MD - 09/06/2024 11:04 AM Perlita Flores MD - 09/06/2024 11:04 AM Perlita Flores MD - 09/06/2024 11:04 AM EST Note Date & Type Note Facility 09-06-2024 History of Presen t illness Narrative Associated Problem(s): Palpitation Continued symptoms and likely POTS. Check Holter. Likely will need beta bessy. Associated Problem(s): Mood disorder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 [facility]* Diagnosis Mood disorder ([facility]/HCC)- Primary Unspecified episodic mood disorder LAMIN (generalized anxiety disorder) ([facility]) Generalized anxiety disorder Blood pressure elevated without history of HTN documented in this encounter [facility] HealthcareEvaluation note* Diagnosis Right kidney mass- Primary Unspecified disorder of kidney and ureter Polyuria Hypokalemia Hypopotassemia Annual physical exam Routine general medical examination at a health care facility Hypersomnia- Primary Hypersomnia, unspecified Prediabetes Other abnormal glucose Fatty liver disease, nonalcoholic Right kidney mass Unspecified disorder of kidney and ureter Aspirin-exacerbated respiratory disease (AERD) ([facility]) Morbid obesity ([facility]) Morbid obesity Body mass index [BMI] 45.0-49.9, adult (Z68.42) Mood disorder ([facility])- Primary Unspecified episodic mood disorder LAMIN (generalized anxiety disorder) ([facility]) Generalized anxiety disorder Blood pressure elevated without history of HTN Benign essential hypertension ([facility])- Primary Essential hypertension, benign Palpitation Palpitations Attention deficit disorder (ADD) without hyperactivity Mood disorder ([facility]) Unspecified episodic mood disorder LAMIN (generalized anxiety disorder) ([facility]) Generalized anxiety disorder Annual physical exam Routine general medical examination at a health care facility documented in this encounter [facility] HealthcareEvaluation note* Diagnosis Vulvar itching [facility] Diagnosis Irritant contact dermatitis due to other chemical products [facility] Diagnosis Right kidney mass- Primary Unspecified disorder of kidney and ureter Polyuria Hypokalemia Hypopotassemia Annual physical exam Routine general medical examination at a health care facility Hypersomnia- Primary Hypersomnia, unspecified Prediabetes Other abnormal glucose Fatty liver disease, nonalcoholic Right kidney mass Unspecified disorder of kidney and ureter Aspirin-exacerbated respiratory disease (AERD) ([facility]) Morbid obesity ([facility]) Morbid obesity Body mass index [BMI] 45.0-49.9, adult (Z68.42) Mood disorder ([facility])- Primary Unspecified episodic mood disorder LAMIN (generalized anxiety disorder) ([facility]) Generalized anxiety disorder Blood pressure elevated without history of HTN Benign essential hypertension ([facility])- Primary Essential hypertension, benign Palpitation Palpitations Attention deficit disorder (ADD) without hyperactivity Mood disorder ([facility]) Unspecified episodic mood disorder LAMIN (generalized anxiety disorder) ([facility]) Generalized anxiety disorder Annual physical exam Routine general medical examination at a health care facility Benign essential hypertension ([facility])- Primary Essential hypertension, benign Palpitation Palpitations Lightheaded Dizziness and giddiness Attention deficit disorder (ADD) without hyperactivity Class 3 severe obesity due to excess calories with serious comorbidity and body mass index (BMI) of 45.0 to 49.9 in adult ([facility]) Prediabetes Other abnormal glucose documented in this encounter [facility] HealthcareEvaluation note* Diagnosis Screening for STD (sexually transmitted disease)- Primary Irritant contact dermatitis due to other chemical products [facility] Diagnosis Screening for STD (sexually transmitted disease)- Primary Vulvar itching Urinary frequency documented [facility]* Diagnosis Right kidney mass- Primary Unspecified disorder of kidney and ureter Polyuria Hypokalemia Hypopotassemia Annual physical exam Routine general medical examination at a health care facility Hypersomnia- Primary Hypersomnia, unspecified Prediabetes Other abnormal glucose Fatty liver disease, nonalcoholic Right kidney mass Unspecified disorder of kidney and ureter Aspirin-exacerbated respiratory disease (AERD) ([facility]) Morbid obesity ([facility]) Morbid obesity Body mass index [BMI] 45.0-49.9, adult (Z68.42) Mood disorder ([facility])- Primary Unspecified episodic mood disorder LAMIN (generalized anxiety disorder) ([facility]) Generalized anxiety disorder Blood pressure elevated without history of HTN Benign essential hypertension ([facility])- Primary Essential hypertension, benign Palpitation Palpitations Attention deficit disorder (ADD) without hyperactivity Mood disorder ([facility]) Unspecified episodic mood disorder LAMIN (generalized anxiety disorder) ([facility]) Generalized anxiety disorder Annual physical exam Routine general medical examination at a health care facility Benign essential hypertension ([facility])- Primary Essential hypertension, benign Palpitation Palpitations Lightheaded Dizziness and giddiness Attention deficit disorder (ADD) without hyperactivity Class 3 severe obesity due to excess calories with serious comorbidity and body mass index (BMI) of 45.0 to 49.9 in adult ([facility]) Prediabetes Other abnormal glucose Attention deficit disorder (ADD) without hyperactivity- Primary Palpitation Palpitations Benign essential hypertension ([facility]) Essential hypertension, benign Mood disorder ([facility]) Unspecified episodic mood disorder LAMIN (generalized anxiety disorder) ([facility]) Generalized anxiety disorder Class 3 severe obesity due to excess calories with serious comorbidity and body mass index (BMI) of 45.0 to 49.9 in adult ([facility]) documented in this encounter [facility] Narrative - Reported* Type Description Date Medical History Seasonal Allergies Medical History glaucoma Medical History IBSD Medical History Asthma Surgical History Sinus Surgery x2 Surgical History PET Placement Surgical History Endoscopy Surgical History WISDOM TEETH REMOVED-WELCH 2015 Surgical History TONSILLECTOMY 2015 Surgical History TURBINOPLASTY x3 2014 Surgical History tonsillectomy and adenoidectomy Surgical History colonoscopy Surgical History septoplasty Surgical History polypectomy Hospitalization History See past surgical hx [employer] Other Hospital Discharge instructions* Attachments The following attachments cannot be sent through Care Everywhere. * Coronavirus Disease (COVID-19): General Info (Lebanese) * COVID-19: Taking Care of Yourself If You Have It: Video (Lebanese) * Nausea and Vomiting (Lebanese) * Diarrhea (Lebanese) [facility] Phone: Hospital Discharge instructions* Attachments The following attachments cannot be sent through Care Everywhere. * Asthma: General Info (Lebanese) documented in [facility] Phone: InstructionsNot on filedocumented in this encounter [facility] [employer] SystemInstructions* Attachments The following attachments cannot be sent through Care Everywhere. * Genital herpes (Lebanese) documented in [facility] encounterMay[facility]Original[facility]* Attachments The following attachments cannot be sent through Care Everywhere. * Vulvar itching (Lebanese) * Vaginitis (Lebanese) [facility] (narrative)* Consultation (Routine) - Pending Review Specialty Diagnoses / Procedures Referred By Corona wolf Referred To Contact Urology Diagnoses Right kidney mass Procedures MI OFFICE/OUTPATIENT NEW HIGH MDM 60 MINUTES Zoran Flores MD [address] [place] [address] Referral ID Status Reason Start Date Expiration Date Visits Requested Visits Authorized [id number] Pending Review Specialty Services Required 08/22/2023 02/18/2024 1 1 [facility]Reason for referral (narrative)* Consultation (Routine) - Pending Review Specialty Diagnoses / Procedures Referred By Conthans t Referred To Contact Urology Diagnoses Right kidney mass Procedures MI OFFICE/OUTPATIENT NEW HIGH MDM 60 MINUTES Zoran Flores MD [address] [place] [address] Referral ID Status Reason Start Date Expiration Date Visits Requested Visits Authorized [id number] Pending Review Specialty Services Required 08/24/2023 02/20/2024 [...] Everywhere. 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 Advance Directive Response Recorded Date/ Time Advance Directives No March 6:28pm Advance Directive Response Recorded Date/ Time Advance Directives No March 5:28pm Reason for Referral Specialty Diagnoses / Procedures Referred By Corona wolf Referred To Contact Diagnoses Chronic pansinusitis Multiple nasal polyps Michael Wiseman MD [address] [place] [address] Referral ID Status Reason Start Date Expiration Date Visits Requested Visits Authorized [id number] Authorized Patient Preference 10/14/2022 10/15/2023 3 3 [...] D deficiency, unspecified Chief Complaint congestion, headache [place] WM[facility] Initial RD Reason for Visit Acute [...] 1:01pm Headaches July 13, 2024 11 :30am Chief Complaint Admit Date Headaches July 13, 2024 11 :30am sore throat, stuffy head, cough September 222024 12:36pm Reason for Visit Admit Date Generalized headaches July 13, 2024 11:30am Sinusitis July 13, 2024 11 :30am Additional Source [...] high, heart palpitations. Reason Comments Med Refill Reason Comments Follow-up 1m Tbh ER f/u Reason Comments STD Discussion Reason Comments Vaginal Itching Vaginal Burning Vaginal Discharge Reason Comments Follow-up 1 m GI Problem Ordered Prescriptions (unrec ognized section and content) [...] On Mon12/16/20 at 2245, For 1 dose 0 (Given - Provid er: Awilda Leon RCP) predniSONE (DELTASONE) tablet 60 mg (COMPLETED) 60 mg, Oral, ONCE, On Mon12/16/20 at 2245, For 1 dose 231 (Given - Provid er: Nancy Jones RN) [...] Attending Provider Active Start: July 27, 2023 Rod Mill Tender Relationship Specialty Start Date End Date Heather Taylor MD [address] [place] [address] 86496 Physician Allergy Medicine 04/14/20 Michael Wiseman MD [address] [place] [address] 27696 Physician Otolaryngology 04/14/20 Rod Mill Tender Relationship Specialty Start Date End Date Heather Taylor MD [address] [place] [address] 71367 Physician Allergy Medicine 04/14/20 Michael Wiseman MD [address] [place] [address] 30912 Physician Otolaryngology 04/14/20 Rod Mill Tender Relationship Specialty Start Date End Date Heather Taylor MD [address] [place] [address] 92468 Physician Allergy Medicine 04/14/20 Michael Wiseman MD [address] [place] [address] 73017 Physician Otolaryngology 04/14/20 Rod Mill Tender Relationship Specialty Start Date End Date Heather Taylor MD [address] [place] [address] 34292 Physician Allergy Medicine 04/14/20 Michael Wiseman MD [address] [place] [address] 21456 Physician Otolaryngology 04/14/20 Rod Mill Tender Relationship Specialty Start Date End Date Heather Taylor MD [address] [place] [address] 16547 Physician Allergy Medicine 04/14/20 Michael Wiseman MD [address] [place] [address] 01576 Physician Otolaryngology 04/14/20 Rod Mill Tender Relationship Specialty Start Date End Date Heather Taylor MD [address] [place] [address] 04099 Physician Allergy Medicine 04/14/20 Michael Wiseman MD [address] [place] [address] 98943 Physician Otolaryngology 04/14/20 Team Status: Inactive Member Role Status Dates Zoran Flores MD Primary Care Provider Active Maribel Flanagan NP-C Attending Provider Active Rod Mill Tender Relationship Specialty Start Date End Date Zoran Flores MD [address] [place] [phone] PCP - General Family Medicine 07/27/23 Rod Mill Tender Relationship Specialty Start Date End Date Heather Taylor MD [address] [place] [address] 81878 Physician Allergy Medicine 04/14/20 Michael Wiseman MD [address] [place] [address] 20367 Physician Otolaryngology 04/14/20 Team Status: Inactive Member [...] April 15, 2024 End: April 15, 2024 Rod Mill Tender Relationship Specialty Start Date End Date Zoran Flores MD [address] [place] [phone] PCP - General Family Medicine 07/27/23 Rod Mill Tender Relationship Specialty Start Date End Date Zoran Flores MD [address] [place] [phone] PCP - General Family Medicine 07/27/23 Rod Mill Tender Relationship Specialty Start Date End Date Zoran Flores MD [address] [place] [phone] PCP - General Family Medicine 07/27/23 Rod Mill Tender Relationship Specialty Start Date End Date Zoran Flores MD [address] [place] [phone] PCP - General Family Medicine 07/27/23 Rod Mill Tender Relationship Specialty Start Date End Date Zoran Flores MD [address] [place] [phone] PCP - General Family Medicine 07/27/23 Rod Mill Tender Relationship Specialty Start Date End Date Zoran Floers MD [address] [place] [phone] PCP - General Family Medicine 07/27/23 Team Status: Inactive Member Role Status Dates Zoran Flores MD Primary Care Provider Active S tart: June 18, 2024 End: June 18, 2024 Radha Brandon , DO Attending Provider Active St art: June 18, 2024 End: June 18, 2024 Team Status: Active Member Role Status Dates Zoran Flores MD Primary Care Provider Active S tart: June 18, 2024 Radha Brandon , DO Attending Provider, Other Provider Active Start: June 18, 2024 Team Status: Inactive Member Role Status Dates Zoran Flores MD Primary Care Provider Active S tart: July 13, 2024 End: July 13, 2024 AVANI Pardo RN CANVAS MARKER-C Attending Provider Active Start: July 13, 2024 End: July 13, 2024 Rod Mill Tender Relationship Specialty Start Date End Date Zoran Flores MD [address] [place] [phone] PCP - General Family Medicine 02/22/24 Rod Mill Tender Relationship Specialty Start Date End Date Zoran Flores MD [address] [place] [phone] PCP - General Family Medicine 07/27/23 Rod Mill Tender Relationship Specialty Start Date End Date Zoran Flores MD [address] [place] [phone] PCP - General Family Medicine 07/27/23 Rod Mill Tender Relationship Specialty Start Date End Date Zoran Flores MD [address] [place] [phone] PCP - General Family Medicine 02/22/24 Rod Mill Tender Relationship Specialty Start Date End Date Zoran Flores MD [address] [place] [address] PCP - General Family Medicine 02/22/24 Rod Mill Tender Relationship Specialty Start Date End Date Zoran Flores MD [address] [place] [phone] PCP - General Family Medicine 07/27/23 Team Status: Active Member Role Status Dates Zoran Floers MD Primary Care Provider Active S tart: August 04, 2024 Onesimo Ny DO Attending Provider Active Sta rt: August 04, 2024 Team Status: Inactive Member Role Status Dates Zoran Flores MD Primary Care Provider Active S tart: September 22, 2024 End: September 22, 2024 Kathy Rizvi APRN Attending Provider Active Start: September 22, 2024 End: September 22, 2024 INFORMATION SOURCE (unrecogn ized section and content) DATE CREATED AUTHOR 12/16/2022 [facility] DATE CREATED AUTHOR AUTHOR'S ORGANIZ ATION 04/24/2023 [facility] DATE CREATED AUTHOR AUTHOR'S ORGANIZ ATION 08/10/2023 [facility] DATE CREATED AUTHOR AUTHOR'S ORGANIZ ATION 09/12/2023 [facility] DATE CREATED AUTHOR AUTHOR'S ORGANIZ ATION 02/24/2024 [facility] DATE CREATED AUTHOR AUTHOR'S ORGANIZ ATION 03/23/2024 [facility] DATE CREATED AUTHOR AUTHOR'S ORGANIZ ATION 03/24/2024 [facility] [place] DATE CREATED AUTHOR AUTHOR'S ORGANIZ ATION 06/25/2024 [facility] DATE CREATED AUTHOR AUTHOR'S ORGANIZ ATION 09/29/2024 [facility] EPIC Goals (unrecognized section and content) [...] BE BASED ON THE PRIMARY CLINICAL RECORDS. [employer] [facility]. provides no warranty or guarantee of the accuracy or completeness of information in this document.
[2024-10-13 20:58] VITALS: PULSE 98
--- NOTE | 2024-10-13 21:15 | ED_ITS ---
HPI - Chest Pain General Chief Complaint: Chest Pain Stated Complaint: chest pain Time Seen by Provider: 10/13/24 21:01 Source: patient Mode of arrival: walk-in Limitations: no limitations History of Present Illness HPI narrative: history of HTN. states around 3:30AM describes heart racing around 153. Describes muffled hearing of her ears and tunnel vision. Symptoms lasted about 20 minutes. At the end of the symptoms she felt nauseated. Squad checked her out. States they checked her blood pressure. She now presents this evening complaining she does not feel right. Has left sided chest pain and still feels she has palpitations. Takes procardia for her BP. States she usually takes it in the AM Related Data Home Medications ?Medication ?Instructions ?Recorded ?Confirmed aspirin 325 mg capsule 325 mg PO DAILY 06/30/23 10/13/24 budesonide-formoterol HFA 160 2 inh inhalation Q12H 08/03/24 10/13/24 mcg-4.5 mcg/actuation aerosol inhaler (Symbicort) cetirizine 10 mg tablet 10 mg PO QDAY 08/03/24 10/13/24 cholecalciferol (vitamin D3) 50 2,000 unit PO QDAY 08/03/24 10/13/24 mcg (2,000 unit) tablet cholestyramine (with sugar) 4 gram 1 ea PO DAILY 08/03/24 08/03/24 oral powder epinephrine 0.3 mg/0.3 mL 0.3 ml subcut Q1H PRN anaphylaxis 08/03/24 10/13/24 injection, auto-injector lisdexamfetamine 20 mg capsule 20 mg PO DAILY 08/03/24 08/03/24 (Vyvanse) montelukast 10 mg tablet 10 mg PO DAILY 08/03/24 10/13/24 nifedipine 30 mg tablet,extended 30 mg PO DAILY 08/03/24 10/13/24 release 24 hr omeprazole 40 mg capsule,delayed 40 mg PO QDAY 08/03/24 10/13/24 release polyethylene glycol 3350 17 17 g PO DAILY PRN constipation 08/03/24 08/03/24 gram/dose oral powder Allergies Allergy/AdvReac Type Severity Reaction Status Date / Time azithromycin (From Zithromax Allergy Severe Unknown Verified 10/13/24 21:00 Z-Mayank) Sulfa (Sulfonamide Allergy Severe Unknown Verified 10/13/24 21:00 Antibiotics) egg Allergy Unknown Unknown Verified 10/13/24 21:00 ketorolac (From Toradol) Allergy Unknown Unknown Verified 10/13/24 21:00 Review of Systems ROS Status of ROS 10 or more systems reviewed and unremark able except as noted in history and below [facility] Social History Little interest or pleasure in doing things: not at all Feeling down, depressed, or hopeless: not at all Exam Constitutional Vital Signs, click to edit/add: Last Vital Signs Pulse 106 H 10/13/24 20:55 Resp 18 10/13/24 20:55 BP 170/106 H 10/13/24 20:55 Pulse Ox 100 10/13/24 20:55 O2 Del Method Room Air 10/13/24 20:55 Common normals: no apparent distress, average body habitus, oriented x3, no limitations, healthy appearing, alert and well nourished [facility] Common normals: normocephalic and head/scalp atraumatic Eye Common normals: EOMs intact bilaterally and conjunctivae normal Chest Other: left chest wall tenderness Respiratory Common normals: normal respiratory effort, no retractions, no use of accessory muscles and clear to auscultation bilaterally Cardio Common normals: S1 normal heart sound and S2 normal heart sound Rate: tachycardic GI Common normals: Normal to inspection, nondistended, normoactive bowel sounds present, soft to palpation and non-tender Extremity Common normals: normal to inspection and full ROM Neuro Common normals: oriented x3, CN's II-XII intact bilaterally and moves all extremities Psych Appearance: grossly normal Course Vital Signs Vital signs: Vital Signs Pulse Rate 106 H 10/13/24 20:55 Respiratory Rate 18 10/13/24 20:55 Blood Pressure 170/106 H 10/13/24 20:55 Pulse Oximetry 100 10/13/24 20:55 Oxygen Delivery Method Room Air 10/13/24 20:55 Pulse Rate 106 H 10/13/24 20:55 Respiratory Rate 18 10/13/24 20:55 Blood Pressure 170/106 H 10/13/24 20:55 Pulse Oximetry 100 10/13/24 20:55 Oxygen Delivery Method Room Air 10/13/24 20:55 MDM - Chest Pain MDM Narrative Medical decision making narrative: patient presents complaining of an episode of her heart racing last PM that lasted about 30 minutes and associated with tunnel vision. She takes Vyvanse and recently dose was increased. She did not take it today. Found to have left sided chest wall pain in the ED. Normal EKG and cxray. neg serial troponin and neg d-dimer. Advised to hold taking Vyvanse until she is re evaluated by her PCP as this could be the cause of her tachycardia Lab Data Labs: Lab Results 10/13/24 10/13/24 10/13/24 Range/Units 21:04 21:35 22:40 WBC 11.6 H (4.0-11.0) 10^3/uL RBC 4.53 (4.20-5.40) 10^6/uL Hgb 11.5 L (12.0-16.0) g/dL Hct 36.3 (36.0-48.0) % MCV 80.1 L (81.0-99.0) fL MCH 25.4 L (26.7-34.0) pg MCHC 31.7 (29.9-35.2) g/dL RDW 15.3 H (11.0-15.0) % Plt Count 448 (150-450) 10^3/uL MPV 9.5 (9.5-13.5) fL Neut % (Auto) 56.1 (43.0-75.0) % Lymph % (Auto) 31.3 (20.5-60.0) % Wood % (Auto) 6.8 (1.7-12.0) % Eos % (Auto) 4.9 (0.9-7.0) % Baso % (Auto) 0.6 (0.2-2.0) % Neut # (Auto) 6.5 (1.4-6.5) 10^3/uL Lymph # (Auto) 3.6 (1.2-3.8) 10^3/uL Wood # (Auto) 0.8 (0.3-0.8) 10^3/uL Eos # (Auto) 0.6 (0.0-0.7) 10^3/uL Baso # (Auto) 0.1 (0.0-0.1) 10^3/uL Abs Immat Gran (auto) 0.03 (0.00-0.03) 10^3/uL Imm/Tot Granulo (auto) 0.3 (0.0-0.5) % D-Dimer 0.45 (<=0.59) mg/L FEU Sodium 141 (136-145) mmol/L Potassium 3.6 (3.5-5.1) mmol/L Chloride 104 (98-107) mmol/L Carbon Dioxide 26.1 (21.0-32.0) mmol/L Anion Gap 14.5 BUN 9.0 (7.0-18.0) mg/dL Creatinine 0.82 (0.55-1.02) mg/dL Est GFR ( Amer) >60 (>=60 mL/min/1.73m^2) Est GFR (Non-Af Amer) >60 (>=60 mL/min/1.73m^2) BUN/Creatinine Ratio 11.0 Glucose 81 (74-106) mg/dL Calcium 9.2 (8.5-10.1) mg/dL Troponin I High Sens <4.0 L <4.0 L (4.0-51.3) pg/mL Urine Opiates Screen Negative (NEGATIVE) Ur Buprenorphine Scrn Negative (NEGATIVE) Ur Oxycodone Screen Negative (NEGATIVE) Urine Methadone Screen Negative (NEGATIVE) Ur Barbiturates Screen Negative (NEGATIVE) U Tricyclic Antidepress Negative (NEGATIVE) Ur Phencyclidine Scrn Negative (NEGATIVE) Ur Amphetamines Screen Positive A (NEGATIVE) U Methamphetamines Scrn Negative (NEGATIVE) U Benzodiazepines Scrn Negative (NEGATIVE) Urine Cocaine Screen Negative (NEGATIVE) U Cannabinoids Screen Negative (NEGATIVE) Discharge Plan Discharge Chief Complaint: Chest Pain Clinical Impression: Atypical chest pain, Tachycardia Patient Disposition: Home, Self-Care Prescriptions / Home Meds: No Action aspirin 325 mg capsule 325 mg PO DAILY budesonide-formoterol [Symbicort] 160-4.5 mcg/actuation HFA aerosol inhaler 2 inh INHALATION Q12H cetirizine 10 mg tablet 10 mg PO QDAY cholecalciferol (vitamin D3) 50 mcg (2,000 unit) tablet 2,000 unit PO QDAY cholestyramine (with sugar) 4 gram powder 1 ea PO DAILY epinephrine 0.3 mg/0.3 mL auto-injector 0.3 ml subcut Q1H PRN (Reason: anaphylaxis) lisdexamfetamine [Vyvanse] 20 mg capsule 20 mg PO DAILY montelukast 10 mg tablet 10 mg PO DAILY nifedipine 30 mg tablet extended release 24hr 30 mg PO DAILY omeprazole 40 mg capsule,delayed release(DR/EC) 40 mg PO QDAY polyethylene glycol 3350 17 gram/dose powder 17 g PO DAILY PRN (Reason: constipation) Print Language: Jordanian Instructions: Thoracic Pain (ED), Chest Wall Pain (ED) Additional Instructions: Hold Vyvanse until re evaluated by Dr Christy this week Referrals: Zoran Christy MD [Primary Care Provider] - 1 week
[2024-10-13 21:27] LABS: Basophils Absolute Auto 0.1 10^3/uL (0.0-0.1); Basophils Percent Auto 0.6 % (0.2-2.0); Eosinophils Absolute Auto 0.6 10^3/uL (0.0-0.7); Eosinophils Percent Auto 4.9 % (0.9-7.0); Hematocrit 36.3 % (36.0-48.0); Hemoglobin 11.5 g/dL (12.0-16.0); Immature Granulocytes Abs Auto 0.03 10^3/uL (0.00-0.03); Immature Granulocytes Pct Auto 0.3 % (0.0-0.5); Lymphocytes Absolute Auto 3.6 10^3/uL (1.2-3.8); Lymphocytes Percent Auto 31.3 % (20.5-60.0); Mean Corpuscular HGB Conc 31.7 g/dL (29.9-35.2); Mean Corpuscular Hemoglobin 25.4 pg (26.7-34.0); Mean Corpuscular Volume 80.1 fL (81.0-99.0); Mean Platelet Volume 9.5 fL (9.5-13.5); Monocytes Absolute Auto 0.8 10^3/uL (0.3-0.8); Monocytes Percent Auto 6.8 % (1.7-12.0); Neutrophils Absolute Auto 6.5 10^3/uL (1.4-6.5); Neutrophils Percent Auto 56.1 % (43.0-75.0); Platelet Count 448 10^3/uL (150-450); Red Blood Count 4.53 10^6/uL (4.20-5.40); Red Cell Distribution Width 15.3 % (11.0-15.0); White Blood Count 11.6 10^3/uL (4.0-11.0)
[2024-10-13 21:34] LABS: D Dimer 0.45 mg/L FEU (<=0.59)
[2024-10-13 21:41] LABS: Anion Gap 14.5; Calcium 9.2 mg/dL (8.5-10.1); Carbon Dioxide 26.1 mmol/L (21.0-32.0); Chloride 104 mmol/L (98-107); Estimated GFR (African America >60 (>=60 mL/min/1.73m^2); Estimated GFR (Non-African Ame >60 (>=60 mL/min/1.73m^2); Glucose 81 mg/dL (74-106); Potassium 3.6 mmol/L (3.5-5.1); Sodium 141 mmol/L (136-145); Troponin I High Sensitivity <4.0 pg/mL (4.0-51.3)
[2024-10-13 21:52] LABS: Amphetamine Screen Urine POSITIVE (NEGATIVE); Barbiturates Screen Urine NEGATIVE (NEGATIVE); Benzodiazepines Screen Urine NEGATIVE (NEGATIVE); Cannabinoid Screen Urine NEGATIVE (NEGATIVE); Cocaine Screen Urine NEGATIVE (NEGATIVE); Methadone Screen Urine NEGATIVE (NEGATIVE); Methamphetamines Screen Urine NEGATIVE (NEGATIVE); Opiate Screen Urine NEGATIVE (NEGATIVE); Oxycodone Screen Urine NEGATIVE (NEGATIVE); Phencyclidine Screen Urine NEGATIVE (NEGATIVE); Tricyclic Antidepressant Urine NEGATIVE (NEGATIVE)
[2024-10-13 21:53] LABS: Buprenorphine Screen Urine NEGATIVE (NEGATIVE)
[2024-10-13 23:04] LABS: Troponin I High Sensitivity <4.0 pg/mL (4.0-51.3)
[2024-10-13 23:51] VITALS: BP 143/96; PULSE 95; O2SAT 97
== END 2024-10-13 23:54 | disposition home or self-care (01) ==
PROVIDERS: Emergency Provider Internal Medicine; PCP Family Medicine
DX: R07.89 Other chest pain (principal); R00.0 Tachycardia, unspecified; I10 Essential (primary) hypertension; Z79.899 Other long term (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
CPT/HCPCS: 36415; 71045; 80048; 80307; 84484; 85025; 85378; 93005; 99285

== ENCOUNTER 2025-01-08 17:10 | Emergency (ER) | payer MEDICAID, SELFPAY ==
--- OUTSIDE RECORDS SUMMARY | 2025-01-08 17:17 | XMS_ITS | Clinical Summary ---
Author Organization [employer] Address [id number] [address] [place] [address] Care Team Providers Care Credit Reference Clerk Name Role Phone Zoran Christy MD Primary Care Provider Allergies Active Allergy Reactions Criticality Noted Date Comments Bee Pollen Itching 12/16/2016 [place] Oil Low 12/16/2016 Other reaction(s): Nausea And Vomiting Lactase 06/21/2019 Egg Derived Low 12/16/2016 Other reaction(s): Nausea And Vomiting Gluten 06/21/2019 Mushroom 06/21/2019 Other Itching 12/16/2016 Cats and dogs Sulfa (Sulfonamide Antibiotics) Hives 12/16/2016 Other reaction(s): Vomiting Sulfasalazine Low 12/16/2016 Other reaction(s): Nausea And Vomiting Yeast Extract Other (See Comments) 12/16/2016 Pt states she had allergy testing done and the test showed bakers yeast allergy. Medications EPINEPHrine (EPIPEN) 0.3 mg/0.3 mL auto-injector Inject into the appropriate muscle. Current Epi-pen has Active albuterol (PROVENTIL HFA;VENTOLIN HFA) 90 mcg/actuation inhaler Inhale 2 puffs every 4 (four) hours as needed for wheezing. 1 Inhaler 0 Active cetirizine (ZyrTEC) 10 mg tablet Take 1 tablet (10 mg total) by mouth daily. 30 tablet 0 Active montelukast (SINGULAIR) 10 mg tablet Take 1 tablet (10 mg total) by mouth nightly. 30 tablet 0 Active SYMBICORT 160-4.5 mcg/actuation inhaler TAKE 2 PUFFS BY MOUTH TWICE A DAY 30.6 Inhaler 3 0 Active aspirin 325 mg EC tablet Take 1 tablet (325 mg total) by mouth in the morning. Active omeprazole (PriLOSEC) 20 mg capsule Take 1 capsule (20 mg total) by mouth in the morning. Active cyanocobalamin (vitamin B-12) 50 mcg tablet Take 1 tablet (50 mcg total) by mouth in the morning. Active cholecalciferol , vitamin D3, 2,000 units capsule Take 1 capsule (2,000 Units total) by mouth in the morning. Active clobetasoL (TEMOVATE) 0.05 % creamIndication s:Vulvar itching Apply 1 Application topically in the morning and 1 Application before bedtime. 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 Discussed proper diet. Patient plans on increasing exercise and losing weight. Prediabetes 09/04/2023 Overview (02/23/2024): Last Assessment & Plan: Labs show prediabetes and at risk for developing diabetes. Discussed low carb diet. Mild persistent asthma, uncomplicated 06/27/2023 Vitamin D insufficiency 06/27/2023 Seasonal allergies 06/21/2019 Pelvic pain 06/21/2019 Irregular menses 06/21/2019 Irritable bowel syndrome with diarrhea 7 Nasal turbinate hypertrophy 06/18/2015 Asthma Immunizations Immunization Administration Dates Next Due Tdap 10/15/2021 Family History Medical History Relation Name Comments Heart disease Maternal Grandfather Heart failure Maternal Grandfather Melanoma Maternal Grandfather Autoimmune disease Mother Hepatitis Mother Ovarian cysts Mother Relation Name Status Comments Maternal Grandfather Mother Social History Tobacco Use Types Packs/Day Years Used Date Smoking Tobacco: Never Smokeless Tobacco: Never Tobacco Cessation:Counseling Given: Not Answered Alcohol Use Standard Drinks/Week Comments No 0 (1 standard drink = 0.6 oz pur e alcohol) Childcare Answer Date Recorded Childcare Unknown 12/19/2018 Employment Answer Date Recorded Employment Unknown 12/19/2018 Purpose - Life Answer Date Recorded Purpose and direction in life Unknown Comments No Sex and Gender Information Value Date Recorded Sex Assigned at Not on file Legal Sex Female 11:53 AM EDT Gender Identity Not on file Sexual Orientation Not on file Last Filed Vital Signs Vital Sign Reading Time Taken Comments Blood Pressure 142/98 03/21/2024 2:42 PM EDT Pulse 96 12/12/2021 1:33 AM EDT Temperature 36.9 C (98.4 F) 12/12/2021 1:33 AM EDT Respiratory Rate 18 12/12/2021 1:33 AM EDT Oxygen Saturation 98% 12/12/2021 1:33 AM EDT Inhaled Oxygen Concentration - - Weight 131.1 kg (289 lb) 03/21/2024 2:42 PM EDT Height 174 cm (5' 8.5 ) 03/21/2024 2:42 PM EDT Body Mass Index 43.3 03/21/2024 2:42 PM EDT Plan of Treatment Health Maintenance Due Date Last Done Comments Depression Screening 2009 Adult BMI Follow Up Plan 2015 Pap Smear 06/21/2022 06/21/2019 Influenza Vaccine 03/10/2025 05/04/2023, , 04/30/2003, Additional history exists Adult BMI Screening 03/21/2025 03/21/2024 Tobacco Screening 03/21/2025 03/21/2024 DTaP,Tdap and Td Vaccines (4 - Td or Tdap) 10/16/2031 10/15/2021, 02/24/2010, 06/08/2001 Medical Devices Not on file Procedures Procedure Name Priority Date/Time Associated Diagnosis Comments PAP SMEAR Routine 06/21/2019 12:49 PM EST Cervical smear, as part of routine gynecological examination from Last 3 Months or Most Recently Relevant to Health Maintenance Results * Pap Smear (06/21/2019 12:49 PM EST) 06/21/2019 12:4 9 PM EST 06/24/2019 12:50 PM EST Narrative COPATH - 06/25/2019 2:33 PM EST [facility] [address] [place] [address] Gynecologic Cytology Consultation Patient Name: MAGDALENA ENNIS : 1995 (Age: 24) Gender: F Taken: 06/21/2019 Reported: 06/25/2019 Physician(s): LYNDSAY CHAMBERS [phone]) Copy To: [facility]. Rec. #: [id number] Acct: # [id number] Final Cytologic Interpretation ThinPrep Pap Test (Cervical): Satisfactory for evaluation. A transformation zone component is present. NEGATIVE FOR INTRAEPITHELIAL LESION OR MALIGNANCY. Shift in nellie suggestive of bacterial vaginosis. [facility]/06/25/2019 Interpretation performed at [facility], [address] [place] [address], License number: [id number]. Electronically Signed Out By STEPHANIE Sanon(ASCP) Date of Last Menstrual Period: 06/03/2019 Other Clinical Conditions: Z01.419 Certified Tower Climber exam wo/abn findings Source of Specimen ThinPrep Pap Test (Cervical) Thin Prep Pap (SENIOR ADVISORY) Fee Code(s): G0145 The Pap test is a screening test with an inherent, but low, probability of error. The Pap test is primarily effective for the diagnosis and prevention of squamous cell carcinoma. Regular screening is critical for prevention. ThinPrep liquid-based slides, which meet the Community Relations Specialist criteria for automated screening, have been screened by the [facility] (as of 03/26/07) along with an additional manual rescreening by a mold filler plastic dolls and, if indicated, by a pathologist. us Lyndsay Chambers MD PATHOLOGY/CYTOLOGY ORDERABLES Fi nal Result COPATH from Last 3 Months or Most Recently Relevant to Health Maintenance Insurance AUTO INSURANCE [employer] Care Teams Credit Reference Clerk Relationship Specialty Start Date End Date Zoran Christy MD PCP - General Family Medicine 02/22/24
--- OUTSIDE RECORDS SUMMARY | 2025-01-08 17:17 | XMS_ITS | Encounter Summary ---
Author Organization [facility] Address [address] [place] [address] Care Team Providers Care Quality Control Head Name Role Phone Zoran Christy MD Primary Care Provider [phone] Encounter Details Date Type Department Care Team ([facility] Contact Info) Description 03/27/2024 Orders Only [facility] [address] [place] [phone] Becky Worthington MD [address] [place] [address] Social History Tobacco Use Types Packs/Day Years Used Date Smoking Tobacco: Never Passive Smoke Exposure: Never Smokeless Tobacco: Never Alcohol Use Standard Drinks/Week Comments Never 1 (1 standard drink = 0.6 oz pure alcohol) caffeine intake: 1-2 cups per day AUDIT-C Answer Date Recorded Q1: How often do you have a drink containing alc ohol? Monthly or less 05/03/2023 Average Number of Drinks Not on file 023 Frequency of Binge Drinking Not on file 04/10 PHQ-2 Answer Date Recorded Patient Health Questionnaire-2 Score 0 07/27/2023 Comments Unknown Sex and Gender Information Value Date Recorded Sex Assigned at Not on file Legal Sex Female 7:01 PM EDT Gender Identity Not on file Sexual Orientation Not on file documented as of this encounter Plan of Treatment Upcoming Encounters Date Type Department Care Team ([facility] Contact Info) Description 01/14/2025 10:00 AM EDT Office Visit [facility] [address] [place] [phone] Zoran Christy MD [address] [place] [phone] documented as of this encounter Procedures Procedure Name Priority Date/Time Associated Diagnosis Comments CT ABDOMEN & PELVIS W Routine 03/27/2024 1:15 PM EDT documented in this encounter Results * CT ABDOMEN & PELVIS W (03/27/2024 1:15 PM EDT) Anatomical Region Laterality Modality Radiographic Lisha ging Becky Worthington MD IMG XR PROCEDURES Final Result documented in this encounter Visit Diagnoses Not on filedocumented in this encounter Care Teams Quality Control Head Relationship Specialty Start Date End Date Zoran Christy MD [address] [place] [phone] PCP - General Family Medicine 07/27/23 documented as of this encounter
--- OUTSIDE RECORDS SUMMARY | 2025-01-08 17:17 | XMS_ITS | Encounter Summary ---
Author Organization [facility] Address [address] [place] [address] Care Team Providers Care Cloth Checker Name Role Phone Zoran Christy MD Primary Care Provider [phone] Encounter Details Date Type Department Care Team ([facility] Contact Info) Description 08/05/2024 Orders Only [facility] [address] [place] [address] Francesca Amaya MD [address] [place], [place] [id number] Social History Tobacco Use Types Packs/Day Years [...] Upcoming Encounters Date Type Department Care Team ([facility] Contact Info) Description 01/14/2025 10:00 AM EDT Office Visit [facility] [address] [place] [address] Zoran Christy MD [address] [place] [address] documented as of this encounter Procedures Procedure Name Priority Date/Time Associated Diagnosis Comments XR CHEST 1 VIEW Routine 08/05/2024 11:42 AM EST documented in this encounter Results * XR chest 1 view (08/05/2024 11:42 AM EST) Anatomical Region Laterality Modality Chest Radiographic Lisha ging Francesca Amaya MD IMG XR PROCEDURES Final Result documented in this encounter Visit Diagnoses Not on filedocumented in this encounter Care Teams Cloth Checker Relationship Specialty Start Date End Date Zoran Christy MD [address] [place] [phone] PCP - General Family Medicine 07/27/23 documented as of this encounter
--- OUTSIDE RECORDS SUMMARY | 2025-01-08 17:17 | XMS_ITS | Encounter Summary ---
Author Organization [facility] Address [address] [place] [address] Care Team Providers Care Glass Glazier Name Role Phone Zoran Christy MD Primary Care Provider [phone] Encounter Details Date Type Department Care Team (Latest Contact Info) Description 01/01/2025 Travel Social History Tobacco Use Types Packs/Day Years [...] Upcoming Encounters Date Type Department Care Team (Late st Contact Info) Description 01/14/2025 10:00 AM EDT Office Visit [facility] [address] [place] [phone] Zoran Christy MD [address] [place] [address] documented as of this encounter Visit Diagnoses Not on filedocumented in this encounter Care Teams Glass Glazier Relationship Specialty Start Date End Date Zoran Christy MD [address] [place] [phone] PCP - General Family Medicine 07/27/23 documented as of this encounter
--- OUTSIDE RECORDS SUMMARY | 2025-01-08 17:17 | XMS_ITS | Encounter Summary ---
Author Organization [facility] Address [address] [place] [address] Care Team Providers Care Film Recordist Name Role Phone Mil Flores MD Primary Care Provider [phone] Encounter Details Date Type Department Care Team ([facility] Contact Info) Description 08/22/2023 Clinisync Result Encounter [facility] External Department Unsolicited Mil Flores MD [address] [place] [phone] Social History Tobacco Use Types Packs/Day Years Used Date Smoking Tobacco: Never Smokeless Tobacco: Never Alcohol Use Standard Drinks/Week Comments Yes 1 (1 standard drink = 0.6 oz [...] Upcoming Encounters Date Type Department Care Team ([facility] Contact Info) Description 01/14/2025 10:00 AM EDT Office Visit [facility] [address] [place] [address] Mil Flores MD [address] [place] [address] documented as of this encounter Procedures Procedure Name Priority Date/Time Associated Diagnosis Comments CT ABDOMEN WO/W CON 08/22/2023 2 :13 PM EST documented in this encounter Results * CT ABDOMEN WO/W CON (08/22/2023 2:13 PM EST) Anatomical Region Laterality Modality Radiographic Lisha ging 08/22/2023 2:13 PM EST Narrative 08/22/2023 2:16 PM EST [address] [address] [address] Scan Report Signed Patient: MAGDALENA ENNIS MR#: [id number] : 1995 Acct:[id number] Age/Sex: 28 / F ADM Date: 08/22/23 Loc: CT Attending Dr: Mil Flores M.D. Ordering Physician: Mil Flores M.D. Date of Service: 08/22/23 Procedure(s): CT abdomen wo/w con Accession Number(s): [id number] cc: Mil Flores M.D. [address] [address] Patient Name: MAGDALENA ENNIS MRN: [id number] date: 1995 Sex: F Assigned Patient Location: CT Current Patient Location: CT Accession/Order Number: [id number] Exam Date: 08/22/2023 13:33 Report Date: 08/22/2023 14:13 At the request of: MIL FLORES Procedure: CT abdomen wo/w con EXAM: CT abdomen wo/w con HISTORY: right kidney mass N28.89 COMPARISON: 06/30/2023 TECHNIQUE: Axial CT images were obtained of the abdomen without and with intravenous contrast. Multiplanar reconstructions were performed. ABDOMEN FINDINGS: Lower Chest: Unremarkable. Liver: Hepatic steatosis is present. Biliary/Gallbladder: Unremarkable. Pancreas: Unremarkable. Spleen: Unremarkable. Adrenal Glands: Unremarkable. Kidneys: There is an enhancing nodule along the posterior cortex of the right kidney measuring 1.4 x 1.3 cm. Gastrointestinal/Peritoneum: No acute abnormality. No free air or free fluid. Vascular: Unremarkable. Lymph Nodes: No enlarged lymph nodes by CT size criteria. Bones: No acute osseous abnormality. Soft tissues: Unremarkable. CT/CT abdomen wo/w con IMPRESSION: 1. Small enhancing lesion along the posterior cortex of the right kidney measuring 1.4 cm, possibly representing a benign or malignant neoplasm of the kidney. 2. Hepatic steatosis. Electronically authenticated by: SHAWN CALHOUN Date: 08/22/2023 14:13 Dictated By: Shawn Calhoun M.D. Signed By: 08/22/23 1416 DD/ 12 TD/TT: Quebracho Tanner: Procedure Note Radiology, Radiologist, - 08/22/2023 [place] [address] CT Scan Report Signed Patient: MAGDALENA ENNIS KMR#: [id number] : 1995Acct:[id number] Age/Sex: 28 / FADM Date: 08/22/23 Loc: CT Attending Dr: Mil Flores M.D. Ordering Physician: Mil Flores M.D. Date of Service: 08/22/23 Procedure(s): CT abdomen wo/w con Accession Number(s): [id number] cc: Mil Flores M.D. [address] [place] [address] Patient Name: MAGDALENA ENNIS MRN: [id number] date: 1995 Sex: F Assigned Patient Location: CT Current Patient Location: CT Accession/Order Number: [id number] Exam Date: 08/22/2023 13:33 Report Date: 08/22/2023 14:13 At the request of: MIL FLORES Procedure: CT abdomen wo/w con EXAM: CT abdomen wo/w con HISTORY: right kidney mass N28.89 COMPARISON: 06/30/2023 TECHNIQUE: Axial CT images were obtained of the abdomen without and with intravenous contrast. Multiplanar reconstructions were performed. ABDOMEN FINDINGS: Lower Chest: Unremarkable. Liver: Hepatic steatosis is present. Biliary/Gallbladder: Unremarkable. Pancreas: Unremarkable. Spleen: Unremarkable. Adrenal Glands: Unremarkable. Kidneys: There is an enhancing nodule along the posterior cortex of theright kidney measuring 1.4 x 1.3 cm. Gastrointestinal/Peritoneum: No acute abnormality. No free air or freefluid. Vascular: Unremarkable. Lymph Nodes: No enlarged lymph nodes by CT size criteria. Bones: No acute osseous abnormality. Soft tissues: Unremarkable. CT/CT abdomen wo/w con IMPRESSION: 1. Small enhancing lesion along the posterior cortex of the right kidney measuring 1.4 cm, possibly representing a benign or malignant neoplasm ofthe kidney. 2. Hepatic steatosis. Electronically authenticated by: SHAWN CALHOUN Date: 08/22/2023 14:13 Dictated By: Shawn Calhoun M.D. Signed By:08/22/23 1416 DD/ 1413 TD/TT: Quebracho Tanner: Mil Flores MD IMG XR PROCEDURES Final Result documented in this encounter Visit Diagnoses Not on filedocumented in this encounter Care Teams Film Recordist Relationship Specialty Start Date End Date Mil Flores MD [address] [place] [address] PCP - General Family Medicine 07/27/23 documented as of this encounter
--- OUTSIDE RECORDS SUMMARY | 2025-01-08 17:17 | XMS_ITS | Encounter Summary ---
Author Organization [facility] Address [address] [place] [address] Care Team Providers Care Dynamic Balancer Name Role Phone Zoran Christy MD Primary Care Provider + Reason for Referral * Specialty Diagnoses / Procedures Referred By Corona wolf Referred To Contact [facility] [address] [place] [phone] Referral ID Status Reason Start Date Expiration Date Visits Re quested Visits Authorized Comments This order was created through External Result Entry Encounter Details Date Type Department Care Team (Late st Contact Info) Description 08/24/2023 Orders Only [facility] Part of [address] [place] [phone] Alcira Ordaz MD Social History Tobacco Use Types Packs/Day Years Used Date Smoking Tobacco: Never Smokeless Tobacco: Never Alcohol Use Standard Drinks/Week Comments No 0 (1 standard drink = 0.6 oz pur e alcohol) AUDIT-C Answer Date Recorded Q1: How often do you have a drink containing alc ohol? Never 04/04/2023 Average Number of Drinks Not on file 023 Frequency of Binge Drinking Not on file 03/11 PHQ-2 Answer Date Recorded PHQ-9 Total Score 0 04/04/2023 Comments No Sex and Gender Information Value Date Recorded Sex Assigned at Not on file Legal Sex Female 9:14 AM EST Gender Identity Not on file Sexual Orientation Not on file documented as of this encounter Plan of Treatment Not on file documented as of this encounter Procedures Procedure Name Priority Date/Time Associated Diagnosis Comments AMB EXTERNAL REFERRAL TO UROLOGY Routine 08/23/2023 2:27 PM EST documented in this encounter Results * Amb External Referral To Urology (08/23/2023 2:27 PM EST) Historical Provider MD KEE AMB EXT REFERRALS Fin al Result documented in this encounter Visit Diagnoses Not on filedocumented in this encounter Care Teams Dynamic Balancer Relationship Specialty Start Date End Date Zoran Christy MD PCP - General 06/09/15 documented as of this encounter
--- OUTSIDE RECORDS SUMMARY | 2025-01-08 17:17 | XMS_ITS | Clinical Summary ---
Author Organization [facility] Healthcare Address [address] [place] [address] Care Team Providers Care Warranty Coordinator Name Role Phone Zoran Christy MD Primary Care Provider [phone] Allergies Active Allergy Reactions Criticality Noted Date Comments Azithromycin 11/16/2022 [place]-Containing Products Nausea And Vomiting,Nausea Only Low 06/10/2015 Egg-Derived Products Nausea And Vomiting,Unknown Low 06/10/2015 Other reaction(s): Nausea And Vomiting ALLERGIC TO EGGS Mushroom Extract Complex (Obsolete) Nausea Only 10/23/2018 Sulfa Antibiotics GI intolerance,Hives,It trevon,Nausea And Vomiting,Unknown Low 06/10/2015 Other reaction(s): Vomiting Other reaction(s): Nausea And Vomiting Sulfamethoxazole-Trimeth oprim Unknown 11/29/2022 Sulfasalazine Low 12/16/2016 Other Reaction(s): Unknown Other reaction(s): Nausea And Vomiting Other reaction(s): Nausea And Vomiting Ketorolac Tromethamine Itching 11/22/2023 Wheat 12/07/2018 diarrhea Medications EPINEPHrine (Epipen) 0.3 MG/0.3ML injection syringe INJECT 0.3 ML INTO THE MUSCLE 1 TIME FOR 1 DOSE. IN CASE OF SEVERE ALLERGIC REACTION (ANAPHYLAXIS) 023 Active aspirin 325 MG tablet Take 1 tablet by mouth in the morning. Active omeprazole (PriLOSEC) [address] capsuleIndicatio ns:Chronic superficial gastritis without bleeding,Atrophi c gastritis TAKE 1 CAPSULE BY MOUTH TWICE A DAY 180 capsule 3 024 Active cholecalciferol (Vitamin D-3) 50 MCG (1999) tabletIndication s:Vitamin D deficiency, unspecified,Lyn min D deficiency TAKE 1 TABLET BY MOUTH EVERY DAY 90 tablet 3 024 Active meclizine (Antivert) 25 MG tabletIndication s:Lightheaded Take 1 tablet (25 mg) by mouth 4 (four) times a day as needed for dizziness 30 tablet 2 025 Active lisdexamfetamine (Vyvanse) 40 MG capsuleIndicatio ns:Attention deficit disorder (ADD) without hyperactivity Take 1 capsule (40 mg) by mouth in the morning. 30 capsule 025 Active Nirmatrelvir&Rit onavir 300/100 (Paxlovid, 300/100,) 20 x 150 MG & 10 x 100MG tablet therapy packIndications: COVID-19 Take 1 each by mouth See administration instructions 1 each 025 Active NIFEdipine XL (Procardia XL) 30 MG 24 hr tabletIndication s:Benign essential hypertension TAKE 1 TABLET BY MOUTH DAILY DO NOT CRUSH, CHEW, OR SPLIT. 90 tablet 1 025 Active montelukast (Singulair) 10 MG tabletIndication s:Mild persistent asthma, uncomplicated (HCC) TAKE 1 TABLET BY MOUTH EVERYDAY AT BEDTIME 90 tablet 1 025 Active cetirizine (ZyrTEC) 10 MG tabletIndication s:Polypoid sinus degeneration TAKE 1 TABLET (10 MG) BY MOUTH DAILY. 90 tablet 3 025 Active polyethylene glycol, PEG, 3350 (Glycolax) 17 GM/SCOOP powderIndication s:Constipation, unspecified,Cons tipation TAKE 1 DOSE IN 6-8 OZ OF LIQUID BY MOUTH ONCE DAILY 510 g 2 025 Active Symbicort 160-4.5 MCG/ACT inhalerIndicatio ns:Mild persistent asthma, uncomplicated (HCC) INHALE 2 PUFFS IN THE MORNING AND 2 PUFFS BEFORE BEDTIME. RINSE MOUTH WITH WATER AFTER USE. 10.2 each 5 025 Active albuterol HFA 90 mcg/act inhalerIndicatio ns:Unspecified asthma, uncomplicated (HCC) INHALE 2 PUFFS BY MOUTH EVERY 4 HOURS NEEDED FOR SHORTNESS OF BREATH 18 g 2 025 Active albuterol HFA 90 mcg/act inhaler Inhale 1 puff every 4 (four) hours if needed for wheezing or shortness of breath. 2024 Discontinued ciprofloxacin (Cipro) 500 MG tabletIndication s:Acute cystitis with hematuria Take 1 tablet (500 mg) by mouth in the morning and 1 tablet (500 mg) before bedtime. Do all this for 7 days. 14 tablet 025 2024 Active Problems Problem Noted Date Diagnosed Date Lightheaded 08/07/2024 Assessment & Plan (08/07/2024 8:39 AM EST): Frequent symptoms and likely POTS. Increase fluid and salt intake. May need florinef. Palpitation 07/08/2024 Assessment & Plan (09/06/2024 11:04 AM EST): Continued symptoms and likely POTS. Check Holter. Likely will need beta bessy. Assessment & Plan (08/07/2024 8:39 AM EST): Continued symptoms and likely POTS. Check Holter. Likely will need beta bessy. Assessment & Plan (07/08/2024 2:48 PM EST): Frequent symptoms and check Holter. Mood disorder 04/05/2024 Assessment & Plan (09/27/2024 11:28 AM EDT): Symptoms unchanged but did not try trileptal. Adjust ADD medication first and may need to try medication in future. Assessment & Plan (09/06/2024 11:04 AM EST): Symptoms worse and add trileptal. Assessment & Plan (07/08/2024 2:48 PM EST): Doing well without medication and monitor. Assessment & Plan (04/05/2024 11:05 AM EDT): Severe symptoms and not functioning well. Start lamictal. LAMIN (generalized anxiety disorder) 04/05/2024 Assessment & Plan (09/27/2024 11:28 AM EDT): Symptoms unchanged but did not try trileptal. Adjust ADD medication first and may need to try medication in future. Assessment & Plan (09/06/2024 11:04 AM EST): Symptoms worse and add trileptal. Assessment & Plan (07/08/2024 2:48 PM EST): Doing well without medication and monitor. Assessment & Plan (04/05/2024 11:05 AM EDT): Severe symptoms and not functioning well. Start lamictal. Benign essential hypertension 04/05/2024 Assessment & Plan (09/27/2024 11:28 AM EDT): BP controlled and monitor PRN. Assessment & Plan (09/06/2024 11:03 AM EST): BP controlled and monitor PRN. Assessment & Plan (08/07/2024 8:39 AM EST): BP controlled and monitor PRN. Assessment & Plan (07/08/2024 2:47 PM EST): BP elevated over past few months and start procardia. Monitor BP PRN. Assessment & Plan (04/05/2024 11:05 AM EDT): BP elevated but no history of HTN. Monitor PRN. If remains elevated will need to treat. Discussed DASH diet. Fatty liver disease, nonalcoholic 09/04/2023 Assessment & Plan (09/04/2023 2:23 PM EST): Liver with fatty liver disease but normal labs. Discussed proper diet. Patient plans on increasing exercise and losing weight. Aspirin-exacerbated respiratory disease (AERD) 0 09/04/2023 Assessment & Plan (09/04/2023 2:23 PM EST): Doing well after surgery and refer to closer ENT. Hypersomnia 09/04/2023 Assessment & Plan (09/04/2023 2:24 PM EST): Signs of KIERAN and check sleep study. Prediabetes 09/04/2023 Assessment & Plan (08/07/2024 8:38 AM EST): Check labs Assessment & Plan (09/04/2023 2:24 PM EST): Labs show prediabetes and at risk for developing diabetes. Discussed low carb diet. Right kidney mass 07/27/2023 Assessment & Plan (09/04/2023 2:24 PM EST): Mass on CT and follow up with urology. Assessment & Plan (07/27/2023 2:15 PM EST): Mass on CT and need to repeat CT with renal protocol. 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 Assessment & Plan (09/06/2024 11:03 AM EST): Symptoms controlled with vyvanse and continue. Assessment & Plan (08/07/2024 8:38 AM EST): Symptoms improved with vyvanse and continue. Assessment & Plan (07/08/2024 2:47 PM EST): Worsening symptoms and try vyvanse. Low back pain with left-sided sciatica 3 Chronic superficial gastritis without bleeding 1 08/28/2022 Persistent disorder of initiating or maintaining sleep 06/27/2023 Irritable bowel syndrome with diarrhea 3 Mild persistent asthma, uncomplicated 06/27/2023 Class 3 severe obesity due t o excess calories with serious comorbidity and body mass index (BMI) of 45.0 to 49.9 in adult 06/27/2023 Assessment & Plan (09/06/2024 11:04 AM EST): Discussed proper diet and regular aerobic exercise. Recommend Weight Watchers and need to limit calories and smaller portions. Need to increase activity and regular aerobic exercise several days a week for 30 minutes at a time. Assessment & Plan (08/07/2024 8:38 AM EST): Discussed proper diet and regular aerobic exercise. Recommend Weight Watchers and need to limit calories and smaller portions. Need to increase activity and regular aerobic exercise several days a week for 30 minutes at a time. Assessment & Plan (09/04/2023 2:26 PM EST): Discussed proper diet and regular aerobic exercise. Recommend Weight Watchers and need to limit calories and smaller portions. Need to increase activity and regular aerobic exercise several days a week for 30 minutes at a time. Paresthesia 06/27/2023 Polypoid sinus degeneration 06/27/2023 Vitamin D insufficiency 06/27/2023 Right knee pain 05/17/2023 Acute internal derangement of right knee 023 Resolved Problems Problem Noted Date Diagnosed Date Resolved Date Primary hypertension 11/22/2023 024 Orthostatic headache 11/22/2023 025 Polyuria 07/27/2023 07/08/2024 Assessment & Plan (07/27/2023 2:16 PM EST): Increased frequency and UA normal. Check culture and increase fluids. Anxiety 06/27/2023 07/08/2024 Encounters Date Type Department Care Team Description 01/01/2025 Travel 12/17/2024 Refill [facility] [address] [place] [phone] Zoran Christy MD Unspecified asthma, uncomplicated (HCC) 12/04/2024 Telephone [facility] [address] [place] [phone] Zoran Christy MD 11/19/2024 Refill [facility] [address] [place] [phone] Zoran Christy MD Constipation, unspecified; Constipation; Mild persistent asthma, uncomplicated (HCC) 11/11/2024 Telephone [facility] [address] [place] [address] Zoran Christy MD Referral 10/23/2024 Refill [facility] [address] [place] [address] Zoran Christy MD Benign essential hypertension ; Mild persistent asthma, uncomplicated (HCC); Polypoid sinus degeneration 10/16/2024 Telephone [facility] [address] [place] [address] Zoran Christy MD from Last 3 Months Immunizations Immunization Administration Dates Next Due DTaP, Unspecified 06/08/2001 HPV 9-Valent 07/19/2018,03/23/2018,01/16/2018 IPV 06/08/2001 Influenza, injectable, MDCK, preservative free, quadrivalent 05/04/2023 Influenza, seasonal, injectable 05/31/2005,04/30,05/07/2002 MMR 06/08/2001 Tdap 10/15/2021,02/24/2010 Family History Medical History Relation Name Comments Diabetes Maternal Grandfather Heart disease Maternal Grandfather Hypertension Maternal Grandfather Hypertension Maternal Grandmother Irritable bowel syndrome Maternal Grandmother Asthma Mother Relation Name Status Comments Father Alive Maternal Grandfather Maternal Grandmother Alive Mother Alive Paternal Grandfather Paternal Grandmother Social History Tobacco Use Types Packs/Day Years Used Date Smoking Tobacco: Never Passive Smoke Exposure: Never Smokeless Tobacco: Never Tobacco Cessation:Counseling Given: No Alcohol Use Standard Drinks/Week Comments Never 1 [...] Sign Reading Time Taken Comments Blood Pressure 140/74 09/27/2024 11:00 AM EDT Pulse 108 09/27/2024 11:00 AM EDT Temperature 36.6 C (97.8 F) 09/27/2024 11:00 AM EDT Respiratory Rate 20 09/27/2024 11:00 AM EDT Oxygen Saturation 97% 09/27/2024 11:00 AM EDT Inhaled Oxygen Concentration - - Weight 135 kg (298 lb) 09/27/2024 11:00 AM EDT Height 172.7 cm (5' 8 ) 09/27/2024 11:00 AM EDT Body Mass Index 45.31 09/27/2024 11:00 AM EDT Plan of Treatment Upcoming Encounters Date Type Department Care Team (Late st Contact Info) Description 01/14/2025 10:00 AM EDT Office Visit [facility] [address] [place] [address] Zoran Christy MD [address] [place] [address] Health Maintenance Due Date Last Done Comments Influenza Vaccine (#1) 2025 3, 05/31/2005, 04/30/2003, Additional history exists Insurance [facility] [place]ICA[place] Care Teams Warranty Coordinator Relationship Specialty Start Date End Date Zoran Christy MD [address] [place] [address] PCP - General Family Medicine 07/27/23
--- OUTSIDE RECORDS SUMMARY | 2025-01-08 17:17 | XMS_ITS | Encounter Summary ---
Author Organization [employer] Address [id number] [address] [place] [address] Care Team Providers Care Water Resource Engineering Specialist Name Role Phone Zoran Christy MD Primary Care Provider [phone] Encounter Details Date Type Department Care Team (Late st Contact Info) Description 02/27/2020 Telephone [facility] [address] [place] [address] Veronika Hoyt, OIL HOUSE ATTENDANT-[facility] [address] [address] Social History Tobacco Use Types Packs/Day Years Used Date Smoking Tobacco: Never Smokeless Tobacco: Never Alcohol Use Standard Drinks/Week Comments No 0 (1 standard drink = 0.6 oz pur e alcohol) Childcare Answer Date Recorded Childcare Unknown 12/19/2018 Employment Answer Date Recorded Employment Unknown 12/19/2018 Comments No Sex and Gender Information Value Date Recorded Sex Assigned at Not on file Legal Sex Female 11:53 AM EDT Gender Identity Not on file Sexual Orientation Not on file COVID-19 Exposure Response Date Recorded In the last month, have you been in contact with someone who was confirmed or suspected to have Coronavirus / COVID-19? No / Unsure 02/08/2020 6:24 PM EDT documented as of this encounter Miscellaneous Notes * Telephone Encounter - Nisreen Mcdowell - 02/27/2020 1:35 PM EDT Patient called complaining of UTI symptoms. Went to the ED on 01/23 in [place], received an antibiotic and pyridium. She finished her antibiotic and is complaining of the same symptoms again. She hadleftover pyridium and started taking it again yesterday. Was hoping we could send over an antibiotic. Spoke with Veronika in regards to this and she said that we cannot test her urine now because she started taking the pyridium and it will alter the results. Advised patient to be told to call PCP as we do not have open spots today and the office is closed tomorrow. Tried to call patient back to relay the message and was unable to leave a voicemail. documented in this encounter Plan of Treatment Not on file documented as of this encounter Visit Diagnoses Not on filedocumented in this encounter Care Teams Water Resource Engineering Specialist Relationship Specialty Start Date End Date Zoran Christy MD PCP - General Family Medicine 02/22/24 documented as of this encounter
--- OUTSIDE RECORDS SUMMARY | 2025-01-08 17:17 | XMS_ITS | Encounter Summary ---
Author Organization [facility] Address [address] [place] [address] Care Team Providers Care Commercial Escrow Assistant Name Role Phone Zoran Christy MD Primary Care Provider [phone] Zoran Christy MD Primary Care Provider [phone] Encounter Details Date Type Department Care Team ([facility] Contact Info) Description 05/17/2023 Orders Only [facility] [address] [place] [address] Anay Welsh Social History Tobacco Use Types Packs/Day Years [...] of Binge Drinking Not on file 04/10 Comments Unknown Sex and Gender Information Value Date Recorded Sex Assigned at Not on file Legal Sex Female 7:01 PM EDT Gender Identity Not on file Sexual Orientation Not on file documented as of this encounter Plan of Treatment Upcoming Encounters Date Type Department Care Team ([facility] Contact Info) Description 01/14/2025 10:00 AM EDT Office Visit [facility] [address] [place] [phone] Zoran Christy MD [address] [place] [phone] documented as of this encounter Visit Diagnoses Not on filedocumented in this encounter Care Teams Commercial Escrow Assistant Relationship Specialty Start Date End Date Zoran Christy MD PCP - General Cardiology 11/29/22 07/26/23 Zoran Christy MD [address] [place] [address] PCP - General Family Medicine 07/27/23 documented as of this encounter
--- OUTSIDE RECORDS SUMMARY | 2025-01-08 17:17 | XMS_ITS | Clinical Summary ---
Author Organization [facility] Address [address] [place] [address] Care Team Providers Care Bath Steward/Stewardess Name Role Phone Zoran Christy MD Primary Care Provider + Allergies Active Allergy Reactions Criticality Noted Date Comments [place]-Containing Products Nausea And Vomiting Low 06/10/2015 Egg-Derived Products Nausea And Vomiting Low 2014 Other Itching 06/10/2015 Cats and dogs Pollen Extract Itching 06/10/2015 Sulfa Antibiotics Nausea And Vomiting Low 5 Yeast-Derived Drug Products Other (See Comments) 06/10/2015 Pt states she had allergy testing done and the test showed bakers yeast allergy. Medications Norethin-Eth Estrad-Fe Biphas (LO LOESTRIN FE PO) Take 1 tablet by mouth daily Active montelukast (SINGULAIR) 10 MG tablet Take 1 tablet by mouth daily Active EPINEPHrine HCl, Anaphylaxis, (EPIPEN IM) Inject 1 Dose into the muscle As needed for emergencies Active oxyCODONE-aceta minophen (PERCOCET) 5-325 MG per tablet Take 1 tablet by mouth every 6 hours as needed for Pain . Active ibuprofen (ADVIL;MOTRIN) 800 MG tablet Take 800 mg by mouth every 6 hours as needed for Pain Active cetirizine (ZYRTEC) 10 MG tablet Take 1 tablet by mouth daily Active budesonide-form oterol (SYMBICORT) 160-4.5 MCG/ACT AERO Inhale 2 puffs into the lungs 2 times daily Active albuterol sulfate HFA (VENTOLIN HFA) 108 (90 Base) MCG/ACT inhaler Inhale 2 puffs into the lungs every 6 hours as needed for Wheezing Active pantoprazole sodium (PROTONIX) 40 MG PACK packet Take 1 packet by mouth every morning (before breakfast) 30 each 3 Active aspirin 325 MG tablet Take 1 tablet by mouth daily Active Active Problems Problem Noted Date Diagnosed Date Irritable bowel syndrome with diarrhea 7 Chronic adenotonsillitis 06/18/2015 DNS (deviated nasal septum) 06/18/2015 Nasal turbinate hypertrophy 06/18/2015 Family History Medical History Relation Name Comments Irritable Bowel Syndrome Maternal Grandmother Asthma Mother Relation Name Status Comments Father Alive Maternal Grandmother Mother Alive Social History Tobacco Use Types Packs/Day Years [...] Sign Reading Time Taken Comments Blood Pressure 143/81 04/04/2023 2:40 PM EDT Pulse 90 04/04/2023 2:40 PM EDT Temperature 36.9 C (98.5 F) 04/04/2023 1:06 PM EDT Respiratory Rate 18 04/04/2023 2:40 PM EDT Oxygen Saturation 99% 04/04/2023 2:40 PM EDT Inhaled Oxygen Concentration - - Weight 136.1 kg (300 lb) 02/13/2021 9:55 PM EDT Height 172.7 cm (5' 8 ) 02/13/2021 9:55 PM EDT Body Mass Index 45.61 02/13/2021 9:55 PM EDT Plan of Treatment Health Maintenance Due Date Last Done Comments Polio vaccine (2 of 3 - 4-dose series) 07/06/2001 06/08/2001 Varicella vaccine (1 of 2 - 13+ 2-dose series) 2010 HIV screen 02/23/2012 Hepatitis C screen 2015 Hepatitis B vaccine (1 of 3 - 19+ 3-dose series) 02/23/2016 Pap smear 2018 COVID-19 Vaccine (1 - 2023- season) 2024 Depression Screen 04/04/2024 04/04/2023 Flu vaccine (#1) 02/07/2025 05/04/2023, , 04/30/2003, Additional history exists DTaP/Tdap/Td vaccine (4 - Td or Tdap) 10/16/2031 10/15/2021, 02/24/2010, 06/08/2001 HPV vaccine Completed 07/19/2018, 03/10, 01/16/2018 Hepatitis A vaccine Aged Out No longe r eligible based on patient's age to complete this topic Hib vaccine Aged Out No longer eligi ble based on patient's age to complete this topic Meningococcal (ACWY) vaccine Aged Out No longer eligible based on patient's age to complete this topic Meningococcal B vaccine Aged Out No l onger eligible based on patient's age to complete this topic Pneumococcal 0-49 years Vaccine Aged Out No longer eligible based on patient's age to complete this topic Insurance MEDICAID Care Teams Bath Steward/Stewardess Relationship Specialty Start Date End Date Zoran Christy MD PCP - General 06/09/15
--- OUTSIDE RECORDS SUMMARY | 2025-01-08 17:17 | XMS_ITS | Encounter Summary ---
Author Organization [facility] Address [address] [place] [address] Care Team Providers Care Fuel Dock Attendant Name Role Phone Zoran Christy MD Primary Care Provider [phone] Encounter Details Date Type Department Care Team ([facility] Contact Info) Description 06/18/2024 Orders Only [facility] [address] [place] [address] Radha Brandon DO [address] [place] [address] Social History Tobacco Use Types Packs/Day Years [...] Upcoming Encounters Date Type Department Care Team ([facility] Contact Info) Description 01/14/2025 10:00 AM EDT Office Visit [facility] [address] [place] [address] Zoran Christy MD [address] [place] [address] documented as of this encounter Procedures Procedure Name Priority Date/Time Associated Diagnosis Comments COLONOSCOPY Routine 06/18/2024 4:24 PM EST SCANNED LABS Routine 06/18/2024 2:11 PM EST documented in this encounter Results * Colonoscopy (06/18/2024 4:24 PM EST) Anatomical Region Laterality Modality Endoscopy us Radha Ly DO ENDOSCOPY PROCEDURE ORDERABLES F inal Result * SCANNED LABS (06/18/2024 2:11 PM EST) us Radha Ly DO LAB CHG PERFORMABLES Final Resul t documented in this encounter Visit Diagnoses Not on filedocumented in this encounter Care Teams Fuel Dock Attendant Relationship Specialty Start Date End Date Zoran Christy MD [address] [place] [address] PCP - General Family Medicine 07/27/23 documented as of this encounter
--- OUTSIDE RECORDS SUMMARY | 2025-01-08 17:17 | XMS_ITS | Encounter Summary ---
Author Organization [facility] Address [address] [place] [address] Care Team Providers Care Assistant City Attorney Name Role Phone Zoran Christy MD Primary Care Provider [phone] Encounter Details Date Type Department Care Team ([facility] Contact Info) Description 06/19/2024 Orders Only [facility] [address] [place] [address] Radha Brandon DO [address] [place] [address] Social History Tobacco Use Types Packs/Day Years [...] Upcoming Encounters Date Type Department Care Team ([facility] Contact Info) Description 01/14/2025 10:00 AM EDT Office Visit [facility] [address] [place] [address] Zoran Christy MD [address] [place] [address] documented as of this encounter Procedures Procedure Name Priority Date/Time Associated Diagnosis Comments SCANNED LABS Routine 06/19/2024 7:52 AM EST documented in this encounter Results * SCANNED LABS (06/19/2024 7:52 AM EST) Radha Brandon DO LAB CHG PERFORMABLES Final Resul t documented in this encounter Visit Diagnoses Not on filedocumented in this encounter Care Teams Assistant City Attorney Relationship Specialty Start Date End Date Zoran Christy MD [address] [place] [address] PCP - General Family Medicine 07/27/23 documented as of this encounter
--- OUTSIDE RECORDS SUMMARY | 2025-01-08 17:17 | XMS_ITS | Encounter Summary ---
Author Organization [facility] Address [address] [place] [address] Care Team Providers Care Lead Enterprise Architect Name Role Phone Zoran Christy MD Primary Care Provider [phone] Zoran Christy MD Primary Care Provider [phone] Encounter Details Date Type Department Care Team ([facility] Contact Info) Description 06/04/2023 Abstract [facility] [address] [place] [id number] Ava Colmenares NP Social History Tobacco Use Types Packs/Day Years Used Date Smoking Tobacco: Never Smokeless Tobacco: Never Tobacco Cessation:Counseling Given: Not Answered Alcohol Use Standard Drinks/Week Comments Yes 1 [...] Upcoming Encounters Date Type Department Care Team ([facility] Contact Info) Description 01/14/2025 10:00 AM EDT Office Visit [facility] [address] [place] [address] Zoran Christy MD [address] [place] [address] documented as of this encounter Visit Diagnoses Not on filedocumented in this encounter Care Teams Lead Enterprise Architect Relationship Specialty Start Date End Date Zoran Christy MD PCP - General Cardiology 11/29/22 07/26/23 Zoran Christy MD [address] [place] [address] PCP - General Family Medicine 07/27/23 documented as of this encounter
[2025-01-08 17:26] VITALS: BP 167/107; PULSE 99; TEMP 36.9; O2SAT 97; BMI 45.3
--- NOTE | 2025-01-08 17:27 | ED.GENADUL1 ---
HPI HPI - General Adult General Chief complaint: Fall Stated complaint: fall Time Seen by Provider: 01/08/25 17:12 History of Present Illness HPI narrative: 29-year-old female presents for evaluation of a head injury. 3 days ago she fell in her shower and hit the back of her head. No LOC. Her vision has been off and she saw an eye doctor yesterday. She complains of some stiffness in her neck and pain throughout her head and states that just does not feel right. No vomiting or localized weakness no other injury was sustained. Related Data Home Medications ?Medication ?Instructions ?Recorded ?Confirmed aspirin 325 mg capsule 325 mg PO DAILY 06/30/23 01/08/25 budesonide-formoterol HFA 160 2 inh inhalation Q12H 08/03/24 01/08/25 mcg-4.5 mcg/actuation aerosol inhaler (Symbicort) cetirizine 10 mg tablet 10 mg PO QDAY 08/03/24 01/08/25 cholecalciferol (vitamin D3) 50 2,000 unit PO QDAY 08/03/24 01/08/25 mcg (2,000 unit) tablet cholestyramine (with sugar) 4 gram 1 ea PO DAILY 08/03/24 01/08/25 oral powder epinephrine 0.3 mg/0.3 mL 0.3 ml subcut Q1H PRN anaphylaxis 08/03/24 01/08/25 injection, auto-injector montelukast 10 mg tablet 10 mg PO DAILY 08/03/24 01/08/25 nifedipine 30 mg tablet,extended 30 mg PO DAILY 08/03/24 01/08/25 release 24 hr omeprazole 40 mg capsule,delayed 40 mg PO QDAY 08/03/24 01/08/25 release albuterol sulfate 90 mcg/actuation 2 inh inhalation Q4H PRN shortness 01/08/25 01/08/25 aerosol inhaler of breath or wheezing meclizine 25 mg tablet 25 mg PO QID PRN dizziness 01/08/25 01/08/25 Allergies Allergy/AdvReac Type Severity Reaction Status Date / Time Sulfa (Sulfonamide Allergy Severe Unknown Verified 10/13/24 21:00 Antibiotics) azithromycin (From Zithromax Allergy Unknown Unknown Verified 01/08/25 17:26 Z-Mayank) egg Allergy Unknown Unknown Verified 10/13/24 21:00 ketorolac (From Toradol) AdvReac Intermediate hallucinati Verified 01/08/25 17:26 ons Opioid HPI Opioid Management Most Recent Opioid Data: Last Pain Scale 7 10/13/24, 21:42 Ur Phencyclidine Scrn, (NEGATIVE) Negative 10/13/24, 21:35 Review of Systems ROS Narrative A ten point review of systems is negative except as noted above. PFSH PFS Social History Little interest or pleasure in doing things: not at all Feeling down, depressed, or hopeless: not at all Exam Narrative Exam Narrative: Nurses note and vital signs reviewed and patient is not hypoxic. General: The patient appears well and in no apparent distress. Patient is resting comfortably on cart. Skin: Warm, dry, no pallor noted. There is no rash noted. Head: Normocephalic, atraumatic; no hematomas palpable. She does not have any focal area of C-spine tenderness. Eye: Normal conjunctiva, no drainage Ears, Nose, Mouth, and Throat: oral mucosa is moist. Nares patent. Cardiovascular: Regular Rate and Rhythm Respiratory: Patient is in no distress, no accessory muscle use, lungs are clear to auscultation, no wheezing, rales or rhonchi Back: non-tender, no CVA tenderness bilaterally to percussion. GI: Soft and nontender Musculoskeletal: All joints have full range of motion. No tenderness in her extremities Neurological: A&O, normal speech Psychiatric: Cooperative Constitutional Vital Signs, click to edit/add: Last Vital Signs Temp 98.4 F 01/08/25 17: Pulse 99 H 01/08/25 17:26 Resp 16 01/08/25 17:26 BP 167/107 H 01/08/25 17:26 Pulse Ox 97 01/08/25 17:26 O2 Del Method Room Air 01/08/25 17:26 Course Vital Signs Vital signs: Vital Signs Temperature 98.4 F 01/08/25 17:26 Pulse Rate 99 H 01/08/25 17:26 Respiratory Rate 16 01/08/25 17:26 Blood Pressure 167/107 H 01/08/25 17:26 Pulse Oximetry 97 01/08/25 17:26 Oxygen Delivery Method Room Air 01/08/25 17:26 Temperature 98.4 F 01/08/25 17:26 Pulse Rate 99 H 01/08/25 17:26 Respiratory Rate 16 01/08/25 17:26 Blood Pressure 167/107 H 01/08/25 17:26 Pulse Oximetry 97 01/08/25 17:26 Oxygen Delivery Method Room Air 01/08/25 17:26 Medical Decision Making MDM Narrative Medical decision making narrative: CT brain and CT C-spine are negative. The patient was concerned about dehydration and requested a urine test. There is no evidence of dehydration and she is able to be discharged home. Treatment diagnosis and follow-up were discussed with the patient. Differential Diagnosis Differential Diagnosis: Head contusion, intracranial hemorrhage, C-spine fracture Lab Data Lab results reviewed: Yes I reviewed the patient's lab results Labs: Lab Results 01/08/25 Range/Units 18:36 Urine Color Lt. yellow (YELLOW) Urine Clarity Clear (CLEAR) Urine pH 6.0 (5.0-9.0) Ur Specific [place] 1.010 (1.005-1.025) Urine Protein Negative (NEG/TRACE) mg/dL Urine Glucose (UA) Negative (NEGATIVE) mg/dL Urine Ketones Negative (NEGATIVE) mg/dL Urine Occult Blood Small A (NEGATIVE) Urine Nitrite Negative (NEGATIVE) Urine Bilirubin Negative (NEGATIVE) Urine Urobilinogen 0.2 (0.2-1.0) EU/dL Ur Leukocyte Esterase Trace A (NEGATIVE) Imaging Data CT scan - head: Radiologist's impression: ITS Impressions Cervical Spine CT 01/08/25 17:42 IMPRESSION: No acute process Impression dictated by: Marlon Bond M.D. 01/08/2025 6:03 PM Dictation Location: [place] [address] Electronically authenticated by: [id number] Y Date: 01/08/2025 18:03 Discharge Plan Discharge Chief Complaint: Fall Clinical Impression: Head injury Patient Disposition: Home, Self-Care Time of Disposition Decision: 18:45 Condition: Good Mode of Transportation: Private Vehicle Prescriptions / Home Meds: No Action aspirin 325 mg capsule 325 mg PO DAILY albuterol sulfate 90 mcg/actuation HFA aerosol inhaler 2 inh INHALATION Q4H PRN (Reason: shortness of breath or wheezing) meclizine 25 mg tablet 25 mg PO QID PRN (Reason: dizziness) budesonide-formoterol [Symbicort] 160-4.5 mcg/actuation HFA aerosol inhaler 2 inh INHALATION Q12H cetirizine 10 mg tablet 10 mg PO QDAY cholecalciferol (vitamin D3) 50 mcg (2,000 unit) tablet 2,000 unit PO QDAY cholestyramine (with sugar) 4 gram powder 1 ea PO DAILY epinephrine 0.3 mg/0.3 mL auto-injector 0.3 ml subcut Q1H PRN (Reason: anaphylaxis) montelukast 10 mg tablet 10 mg PO DAILY nifedipine 30 mg tablet extended release 24hr 30 mg PO DAILY omeprazole 40 mg capsule,delayed release(DR/EC) 40 mg PO QDAY Print Language: Chilean Instructions: Head Injury (ED) Referrals: Zoran Christy MD [Primary Care Provider, Family Practice] - 1 week
--- NOTE | 2025-01-08 17:42 | CT_ITS ---
[address] [address] Patient Name: LILIANA RHODES MRN: [id number] date: 1995 Sex: F Assigned Patient Location: ER Current Patient Location: [facility] Accession/Order Number: [id number] Exam Date: 01/08/2025 17:58 Report Date: 01/08/2025 19:08 At the request of: CHICHI RODRIGUEZ MD Procedure: CT head/brain wo con Unenhanced head CT TECHNIQUE: Contiguous axial imaging of the head. The CT exam was performed using one or more the following dose reduction techniques: Automated exposure control, adjustment of the MA and/or Kv according to patient size, or use of the iterative reconstruction technique. COMPARISON: None HISTORY: VENTRICLES: Within normal limits ATROPHY: None BRAIN PARENCHYMA: Adequate king-white matter differentiation identified. HEMORRHAGE: None HERNIATION: No mass effect or herniation INFARCTION: No recent vascular distribution infarction is seen. EXTRA-AXIAL FLUID COLLECTIONS None MIDBRAIN: Unremarkable MEETA: Unremarkable MEDULLA: Unremarkable SINUSES: Opacification of ethmoid air cells. Mucosal thickening of sphenoid sinus. ORBITS: Grossly unremarkable MASTOIDS: Unremarkable BONY STRUCTURES Intact ADDITIONAL FINDINGS: CT/CT head/brain wo con IMPRESSION: No acute findings. CT Cervical Spine withoutcontrast TECHNIQUE: Axial imaging with 2-D and 3-D reconstruction. The CT exam was performed using one or more the following dose reduction techniques: Automated exposure control, adjustment of the MA and/or Kv according to patient size, or use of the iterative reconstruction technique. COMPARISON: None HISTORY: POST SURGERY CHANGES: None BONY ALIGNMENT: Adequate BONY SPINAL CANAL: Patent central bony canal FRACTURE: None BONY LESIONS: None SOFT TISSUES: Unremarkable DEGENERATIVE CHANGES: None LUNG APICES: Unremarkable ADDITIONAL FINDINGS: IMPRESSION: No acute process Impression dictated by: Marlon Bond M.D. 01/08/2025 7:08 PM Dictation Location: [employer] [facility] [employer] Electronically authenticated by: [id number] Y Date: 01/08/2025 19:08
--- NOTE | 2025-01-08 17:42 | CT_ITS ---
The [address] [address] Patient Name: LILIANA RHODES MRN: [id number] date: 1995 Sex: F Assigned Patient Location: ER Current Patient Location: ED.MAIN Accession/Order Number: [id number] Exam Date: 01/08/2025 18:01 Report Date: 01/08/2025 18:03 At the request of: CHICHI RODRIGUEZ MD Procedure: CT cervical spine wo con CT Cervical Spine withoutcontrast TECHNIQUE: Axial imaging with 2-D and 3-D reconstruction. The CT exam was performed using one or more the following dose reduction techniques: Automated exposure control, adjustment of the MA and/or Kv according to patient size, or use of the iterative reconstruction technique. COMPARISON: None HISTORY: Fell. Head injury. POST SURGERY CHANGES: None BONY ALIGNMENT: Straightening BONY SPINAL CANAL: Patent central bony canal FRACTURE: None BONY LESIONS: None SOFT TISSUES: Unremarkable DEGENERATIVE CHANGES: None LUNG APICES: Unremarkable ADDITIONAL FINDINGS: CT/CT cervical spine wo con IMPRESSION: No acute process Impression dictated by: Marlon Bond M.D. 01/08/2025 6:03 PM Dictation Location: [email or web address] Electronically authenticated by: [id number] Y Date: 01/08/2025 18:03
[2025-01-08 18:42] LABS: Glucose Urine UA NEGATIVE (NEGATIVE)
[2025-01-08 18:50] LABS: Cast Seen? NONE SEEN #/LPF (NONE SEEN); Crystals Seen? None Seen #/HPF (None Seen)
[2025-01-08 19:16] VITALS: BP 159/99; PULSE 97; O2SAT 98
== END 2025-01-08 19:08 | disposition home or self-care (01) ==
PROVIDERS: Emergency Provider Emergency Medicine; PCP Family Medicine
DX: S09.90XA Unspecified injury of head, initial encounter (principal); W18.2XXA Fall in (into) shower or empty bathtub, initial encounter
CPT/HCPCS: 70450; 72125; 81001; 99284

== ENCOUNTER 2025-01-14 11:21 | Outpatient (OUT) | payer MEDICAID, SELFPAY ==
--- OUTSIDE RECORDS SUMMARY | 2025-01-14 11:23 | XMS_ITS ---
Author Name Auto Generated Organization OHIP Support Name Relationship Address Phone Marisela Ennis Next of Kin [address] [place] [phone] + MARISELA ENNIS Next of Kin Unknown [phone] MARISELA ENNIS Next of Kin Unknown [phone] MARISELA ENNIS Next of Kin Unknown [phone] MARISELA ENNIS Next of Kin Unknown [phone] MARISELA ENNIS Next of Kin Unknown [phone] Marisela Ennis Next of Kin [address] [place] [phone] + Marisela Ennis Next of Kin [address] [place] [phone] + MARISELA ENNIS Next of Kin Unknown [phone] RAYMONELIZABETH SHARPELL Next of Kin [address] [facility] [place] [address] + RAYMONMARISELA OGLESBY Next of Kin [address] [facility] [place] [address] + RAYMON MARISELA Next of Kin [address] [place] [address] + RAYMONELIZABETHLL Next of Kin [address] [place] [address] + RAYMON, MARISELA Next of Kin [address] [facility] [place] [address] + MARISELA ENNIS Next of Kin [address] [facility] [place] [address] + MARISELA ENNIS Next of Hong [address] [facility] [place] [address] + MARISELA ENNIS Next of Hong [address] [facility] [place] [address] + MARISELA ENNIS Next of Hong [address] [facility] [place] [address] + MARISELA ENNIS Next of Hong [address] [facility] [address] + Care Team Providers Care Coding Machine Operator Name Role Phone SANDRA, ZORAN Attending Unavailable NADERER, ZORAN Attending Unavailable NADERER, ZORAN Attending Unavailable NADERER, ZORAN Attending Unavailable NADERER, ZORAN Attending Unavailable NADERER, ZORAN Attending Unavailable MACMAINTEJAS Attending Unavailable NADERER, ZORAN Referring Unavailable NADERER, ZORAN Primary Care Unavailable MACMAIN, TEJAS Olsen Referring Unavailable NADERER, ZORAN Primary Care Unavailable MACMAINTEJAS Referring Unavail able NADERER, ZORAN Primary Care Unavailable KROTNADEEM HERNANDEZ Attending Unavailable NADERER, ZORAN Referring Unavailable NADERER, ZORAN Primary Care Unavailable KROTZERNADEEM Referring Unavailable NADERER, ZORAN Primary Care Unavailable Naderer, Zoran Primary Care Unavailable Ly, Radha L Admitting Unavailable Ly, Radha L Attending Unavailable Naderer, Zoran Admitting Unavailable Naderer, Zoran Attending Unavailable Naderer, Zoran Primary Care Unavailable Ly, Radha L Admitting Unavailable Ly, Radha L Attending Unavailable PROBLEMS DATE TYPE CONDITION / CODE ATTENDING STATUS [facility] 06/18/2024 Unknown Diarrhea, unspec ified / R19.7(ICD-10) Ly, Radha L Active [facility] 03/21/2024 Unknown Pruritus vulvae / L29.2(ICD-10) NADEEM SHAW Active [facility] 03/21/2024 Unknown Frequency of micturition / R35.0(ICD-10) NADEEM SHAW Active [facility] 03/21/2024 Unknown Vaginal Itching / FREETEXT(AOF) NADEEM SHAW Active [facility] 03/21/2024 Unknown Vaginal Discharg e / FREETEXT(AOF) NADEEM SHAW [facility] 2024 Unknown Encounter for screening for infections with a predominantly sexual mode of transmission / Z11.3(ICD-10) TEJAS JUARES [facility] 2024 Unknown STD Discussion / UNK(Unknown) TEJAS JUARES [facility] PROCEDURES No Procedure Records Found RESULTS CLOSTRIDIUM DIFFICILE Collected: 06/18/2024 1:44 PM Status: F Source: [facility] Order Comment: > or = to 3 l oose/watery stools in the last 24 HRS? Y Is patient on promotility agents or tube feeding? N TYPE CODE TESTS RESULT OUT OF RANGE REFERENCE UNITS LAB CDTRES Clostridium Difficile Negative Negative Result Comment: Testing perf ormed by RT-PCR PERFORMED BY: [place] [address] PATHOLOGIST BOILER ROOM HELPER GUANACO ROSA M.D. Performed By: #### CDT #### [facility] [address] [place], [place] [address] [facility] HCG,URINE Collected: 12:15 PM Status: F Source: [facility] TYPE CODE TESTS RESULT OUT OF RANGE REFERENCE UNITS LAB UHCGQ HCG Qualitative,U rine Negative Result Comment: PERFORMED BY : [place] [address] PATHOLOGIST BOILER ROOM HELPER GUANACO ROSA M.D. Performed By: #### UHCG #### [facility] [address] [place], [place] [address] [place] L Observed: 06/18/2024 12:00 AM Status: F Source: [facility] ----- ------- Specimen: [id number] Received: 06/18/24 Status: MILKA Perlita Num: [id number] Spec Type: Surgical Subm Dr: Radha Brandon DO Tissues: A Colon Biopsy (RANDOM RT COLON BX R/O MICRO) B Colon Biopsy (RANDOM LT COLON BX R/O MICRO) Procedures: HE/4, Gross/Micro L4/2 ----- ------- Age/ Patient Sex Location Account Attending Physician ----- ------- Magdalena Ennis / [id number] Radha Brandon DO ----- ------- SPEC NUM: [id number] RECD: 06/18/24 STATUS: MILKA PERLITA NUM: [id number] MONA: 06/18/24- SUBM DR: Radha Brandon DO ENTERED: 06/18/[address]: SPEC TYPE: Surgical DEPT: S ENTERED BY: [id number] RECV BY: [id number] ORDERED: HE/4, Gross/Micro L4/2 ORDERED: HE/4, Gross/Micro [...] submitted in a single cassette. (1, ns, [id number] A) Part B is received in formalin labeled with the patients name, date of , and random left colon BX are 5 nelson-king, focally erythematous, friable, 0.2 to 0.5 cm in greatest dimension tissue bits. The specimen is entirely submitted in a single cassette. (1, ns, [id number] B) ----- ------- Specimen: [id number] Received: 06/18/24 Status: MILKA Perlita Num: [id number] Spec Type: Surgical Subm Dr: Radha Brandon DO Tissues: A Colon Biopsy (RANDOM RT COLON BX R/O MICRO) B Colon Biopsy (RANDOM LT COLON BX R/O MICRO) Procedures: STEFANIA, Gross/Micro L4/2 ----- ------- Patient: RaymonMagdalena Rashid [id number] (Continued) ----- ------- Specimen: [id number] Received: 06/18/24 (Continued) Signed (signature on file) Guanaco Rosa MD 06/19/24 1623 ----- ------- Specimen: [id number] Received: 06/18/24 Status: MILKA Bhat Num: [id number] Spec Type: Surgical Subm Dr: Radha Brandon DO Tissues: A Colon Biopsy (RANDOM RT COLON BX R/O MICRO) B Colon Biopsy (RANDOM LT COLON BX R/O MICRO) Procedures: Vicente AGUIAR/Micro L4/2 ----- ------- Patient: Magdalena Ennis [id number] (Continued) ----- ------- Specimen: [id number] Received: 06/18/24 (Continued) CPT Codes 77776y8 ----- ------- ----- ------- Specimen: [id number] Received: 06/18/24 Status: LAXMIJose Antonio Perlita Num: [id number] Spec Type: Surgical Subm Dr: Radha Brandon DO Tissues: A Colon Biopsy (RANDOM RT COLON BX R/O MICRO) B Colon Biopsy (RANDOM LT COLON BX R/O MICRO) Procedures: ARLEY/Vicente Lamar/Norma L4/2 ----- ------- Patient: Magdalena Ennis [id number] (Continued) ----- ------- Signed (signature on file) Guanaco Rosa MD 06/19/24 1623 CELIAC Collected: 04/15/2024 10:13 AM Status: F Source: [facility] TYPE CODE TESTS RESULT OUT OF RANGE REFERENCE UNITS LAB DGA IGA Deamidated Gliadin Abs, IgA 7 0-19 Result Comment: Negative 0 - 19 Weak Positive 20 - 30 Moderate to Strong Positive >30 LAB DGA IGG Deamidated Gliadin Abs, IgG 2 0-19 Result Comment: Negative 0 - 19 Weak Positive 20 - 30 Moderate to Strong Positive >30 LAB TTG IGA T-Transglutamina s e (tTG) IgA <2 0-3 Result Comment: Negative 0 - 3 Weak Positive 4 - 10 Positive >10 Tissue Transglutaminase (tTG) has been identified as the endomysial antigen. Studies have demonstr- ated that endomysial IgA antibodies have over 99% specificity for gluten sensitive enteropathy. LAB TTG IGG T-Transglutamina s e (tTG) IgG 2 0-5 Result Comment: Negative 0 - 5 Weak Positive 6 - 9 Positive >9 LAB ENDOMYS IGA Endomysial Antibody IgA Negative Negative LAB CELIAC IGA Immunoglobulin A , Qn, Serum 185 87-352 mg/dL Result Comment: Performed at : [address] [id number] Packing Tractor Machine Operator: De Thompson PhD, Phone: [phone] PERFORMED BY: [place] [address] PATHOLOGIST BOILER ROOM HELPER AYDEN ZHONG M.D. Performed By: #### CDT #### [address] #### CELIAC #### [facility] , CLOSTRIDIUM DIFFICILE Collected: 04/15/2024 8:17 AM Status: C Source: [facility] TYPE CODE TESTS RESULT OUT OF RANGE REFERENCE UNITS LAB CDTRES Clostridium Difficile Positive Unknown Negative Result Comment: Results call ed at 1129 on 04/16/24 Testing performed by RT-PCR PERFORMED BY: [place] [id number] PATHOLOGIST BOILER ROOM HELPER AYDEN ZHONG M.D. Performed By: #### CDT #### [facility] [address] #### CELIAC #### [facility] , URINE CULTURE Observed: 03/21/2024 2:53 PM Status: COMPLETED Source: [facility] CULTURE RESULTS <10,000 ORGANISMS/ML NORMAL URO GENITAL SAMAN Performed By: #### 630-4 ### # [facility] ([id number]) [address] [place] [address], [address] [place] [address] VAGINITIS PANEL PCR Observed: 03/21/2024 2:35 PM Status: COMPLETED Source: [facility] BACT. VAGINOSIS DNA Not detected (qualifier value) Qualitative results are reported based on detection and quantitation of targeted organism markers which include: Lactobacillus spp. (L. crispatus and L. jensenii), Gardnerella vaginalis, Atopobium vaginae, Bacterial Vaginosis Associated Bacteria-2 (BVAB-2) and Megasphaera-1 BEATRIZ SPECIES DNA Not detected (qualifier value) Beatriz species not detected include: C. albicans, C. tropicalis, C. parapsilosis or C. dubliniensis BEATRIZ KRUSEI DNA Not detected (qualifier value) No Beatriz krusei detected BEATRIZ GLABRATA DNA Not detected (qualifier value) No Beatriz glabrata detected TRICHOMONAS VAG DNA Not detected (qualifier value) No Trichomonas vaginalis detected NOTE BD MAX Vaginal Panel has not been evaluated for patients under 18 years old. Results for these patients should be reviewed and assessed in accordance with clinical presentation to determine patient diagnosis. Performed By: #### VPPCR ### # [facility] ([id number]) [address] [place] [address], [address] [place] [address] CHLAMYDIA/GC BY PCR Observed: 03/21/2024 2:35 PM Status: COMPLETED Source: [facility] SPECIMEN SOURCE CERVIX CHLAMYDIA DNA(PCR) Negative (qualifier value) Chlamydia trachomatis not detected by nucleic acid amplification. This does not exclude the possibility of infection because results are dependent on adequate specimen collection. GONORRHOEAE DNA(PCR) Negative (qualifier value) Neisseria gonorrhoeae not detected by nucleic acid amplification. This does not exclude the possibility of infection because results are dependent on adequate specimen collection. Performed By: #### CGS #### [facility] ([id number]) [address] [place] [address], [address] [place] [address] ACUTE HEPATITIS PANEL Collected: 2023 10:36 AM Status: COMPLETED Source: [facility] TYPE CODE TESTS RESULT OUT OF RANGE REFERENCE UNITS LAB HBAG(LOINC) HEPATITIS B SURF AG Negative (qualifier value) NEG LAB HBCM(LOINC) HEPATITIS B CORE IGM Negative (qualifier value) NEG LAB HAVM(LOINC) HEPATITIS A IGM Nonreactive (qualifier value) NRCT LAB HCV(LOINC) ANTI HCV W/PCR REFLX Nonreactive (qualifier value) NRCT Result Comment: If recent infection suspected, recommend repeat testing (>2 months). Qrtyjq-le-xfvznc ratio is <0.80. Performed By: #### DONNELL, 5688 8-1, HSVP, 80220-5 #### [facility] ([id number]) [address] [place] [address], [facility] [address] [place] [address] HIV 1 AND 2 AB/AG SCREEN Collected: 10:36 AM Status: COMPLETED Source: [facility] TYPE CODE TESTS RESULT OUT OF RANGE REFERENCE UNITS LAB HIV4(LOINC) HIV 1 and 2 Ab/Ag Screen Nonreactive (qualifier value) NRCT Result Comment: This information has been disclosed [...] HIV test results or diagnoses. Performed By: ###Yonny JACOBO, 5688 8-1, HSVP, 67472-7 #### [facility] ([id number]) [address] [place] [address], [address] [place] [address] HERPES IGG PROFILE Collected: 2024 10:36 AM Status: COMPLETED Source: [facility] TYPE CODE TESTS RESULT OUT OF RANGE REFERENCE UNITS LAB HV1G([facility]) HERPES 1 IgG 5.6 High <0.9 AI Result Comment: Interpretation-------- <0.9 Negative 0.9 - 1.0 Equivocal >1.0 Positive LAB HV2G(LOINC) HERPES 2 IgG <0.2 <0.9 AI Result Comment: Interpretation-------- <0.9 Negative 0.9 - 1.0 Equivocal >1.0 Positive Performed By: #### DONNELL, 5688 8-1, HSVP, 97581-1 #### [facility] ([id number]) [address] [place] [address] SYPHILIS TOTAL Collected: 10:36 AM Status: COMPLETED Source: [facility] TYPE CODE TESTS RESULT OUT OF RANGE REFERENCE UNITS LAB SYPHT([facility]) Syphilis Total <0.2 0.0-0.8 AI Result Comment: NON REACTIVE No serologic evidence of infection to Treponema pallidum (syphilis). Repeat testing may be considered in patients with suspected acute or primary syphilis in 2 to 4 weeks. Performed By: #### DONNELL, 5688 8-1, HSVP, 32337-6 #### [facility] ([id number]) [address] [place] [address], [address] [address] VAGINITIS PANEL PCR Observed: 2024 10:03 AM Status: COMPLETED Source: [facility] BACT. VAGINOSIS DNA Not detected (qualifier value) Qualitative results are reported based on detection and quantitation of targeted organism markers which include: Lactobacillus spp. (L. crispatus and L. jensenii), Gardnerella vaginalis, Atopobium vaginae, Bacterial Vaginosis Associated Bacteria-2 (BVAB-2) and Megasphaera-1 BEATRIZ SPECIES DNA Not detected (qualifier value) Beatriz species not detected include: C. albicans, C. tropicalis, C. parapsilosis or C. dubliniensis BEATRIZ KRUSEI DNA Not detected (qualifier value) No Beatriz krusei detected BEATRIZ GLABRATA DNA Not detected (qualifier value) No Beatriz glabrata detected TRICHOMONAS VAG DNA Not detected (qualifier value) No Trichomonas vaginalis detected NOTE BD MAX Vaginal Panel has not been evaluated for patients under 18 years old. Results for these patients should be reviewed and assessed in accordance with clinical presentation to determine patient diagnosis. Performed By: #### VPPCR ### # [facility] ([id number]) [address] [place] [address], [address] [place] [address] CHLAMYDIA/GC BY PCR Observed: 2024 10:03 AM Status: COMPLETED Source: [facility] SPECIMEN SOURCE CERVIX CHLAMYDIA DNA(PCR) Negative (qualifier value) Chlamydia trachomatis not detected by nucleic acid amplification. This does not exclude the possibility of infection because results are dependent on adequate specimen collection. GONORRHOEAE DNA(PCR) Negative (qualifier value) Neisseria gonorrhoeae not detected by nucleic acid amplification. This does not exclude the possibility of infection because results are dependent on adequate specimen collection. Performed By: #### CGS #### [facility] ([id number]) [address] [place] [address], [address] [place] [address] ALLERGIES DATE TYPE / CODE NAME / CODE REACTION SEVERITY SOURCE 09/22/2024 Drug Allergy/416 745219(SNOM ED CT) NSAIDS (Non-Steroidal Anti-Inflamma/S3842 26492(RXNORM) I just can't take those Unknown [facility] 09/22/2024 Drug Allergy/416 918797(SNOM ED CT) ketorolac/M36450436 2(RXNORM) Itching Moderate (Severity Modifier) (Qualifier Value) [facility] 06/21/2019 DRUG INGREDI~NON -CBORD/4195 72140(SNOME D CT) LACTASE [facility] 06/21/2019 DRUG INGREDI~Caprice d/326828606 (SNOMED CT) GLUTEN [facility] 06/21/2019 DRUG INGREDI~Caprice d/121828579 (SNOMED CT) MUSHROOM [facility] 12/16/2016 DRUG INGREDI~Env iron~NON-CB ORD/3402878 03(SNOMED CT) BEE POLLEN Itching [facility] 12/16/2016 SYSTEMIC~Fo od/99803876 0(SNOMED CT) OTHER Itching [facility] 12/16/2016 Drug Class~NON-C BORD/518867 003(SNOMED CT) SULFA (SULFONAMIDE ANTIBIOTICS) Hives [facility] 12/16/2016 DRUG INGREDI~Caprice d/354684673 (SNOMED CT) YEAST EXTRACT Other ( See Comments) [facility] 12/16/2016 DRUG INGREDI~Caprice d/555170136 (SNOMED CT) CORN OIL Low [facility] 12/16/2016 Drug Class~Food/ 442072547(S NOMED CT) EGG DERIVED Low [facility] 12/16/2016 DRUG INGREDI~NON -CBORD/4195 38695(SNOME D CT) SULFASALAZINE Low [facility] ENCOUNTERS ADMIT/DISCHARGE ACCOUNT NUMBER ADMITTING ENCOUNTER CLASS LOCATION SOURCE 01/14/2025/01/15/20 [id number] [facility]/14/2025/01/15/20 [id number] Ambulatory Building:[facility] 09/27/2024/09/28/19 25 [id number] Ambulatory Building:[facility] 09/06/2024/09/06/19 [id number] Ambulatory Building:[facility] 08/07/2024/08/07/19 25 [id number] Ambulatory Building:[facility] 07/08/2024/07/08/20 24 [id number] Ambulatory Building:[facility] 06/18/2024/06/18/20 24 [id number] Radha Brandon L [facility] 04/15/2024/04/15/20 24 [id number] LyVaishalie L [facility] 04/05/2024/04/05/20 24 [id number] Ambulatory Building:[facility] 03/21/2024/03/21/20 24 [id number] Ambulatory Building:PTH _PML [facility] 03/21/2024/03/21/20 24 [id number] Ambulatory Buildin 18 [facility] 02/22/2024/02/22/20 24 [id number] Ambulatory Building:PTH _PML [facility] 02/22/2024/02/22/20 24 [id number] Ambulatory Building:PFM _LAB [facility] 02/22/2024/02/22/20 24 [id number] Ambulatory Buildin 18 [facility] PAYERS ENCOUNTER GUARANTOR PAYER SUBSCRIBER SOURCE 01/14/2025 Magdalena Ennis[address] [place] [phone]: (HP) Primary Insurance:Self PayPolicy Number: Effective Date:2025-01-14 [facility]2025 MAGDALENA DALLAS: [address] [place] [phone]: (HP)MAGDALENA DALLAS: [address] [place] [phone]: ~[phone] (HP) Primary Insurance:[employer] BCBS MEDICAID [place] Number: [id number] Date:2023-07-10 MAGDALENA DALLAS: [id number] [address] [place] [phone] [facility] 09/27/2024 MAGDALENA LEEB: [facility] [place] [address]Ozk: (HP)MAGDALENA LEEB: [address] [place] [address], [place] [address]Ulj: ~([phone] (HP) Primary Insurance:[facility] MEDICAID CALIFORNIAPolicy Number: [id number] Date:2024-08-10 MAGDALENA LEEB: [id number] [address] [place] [address], [place] [address] [facility] 09/06/2024 MAGDALENA LEEB: [address] [place] [phone]: (HP)MAGDALENA LEEB: [address] [place] [address]Kks: ~([phone] (HP) Primary Insurance:[facility] MEDICAID Mercy Healthicy Number: [id number] Date:2024-08-10 MAGDALENA LEEB: [id number] [address] [place] [address], [place] [address] [facility] 08/07/2024 MAGDALENA LEEB: [address] [place] [address], [place] [address]Xpg: (HP)MAGDALENA LEEB: [address] [place] [address], [place] [address]Peu: (HP) Primary Insurance:[facility] MEDICAID Mercy Healthicy Number: [id number] Date:2022-08-10 MAGDALENA LEEB: [id number] [address] [place] [address], [place] [address] [facility] 07/08/2024 MAGDALENA LEEB: [address] [place] [address], [place] [address]Wre: (HP)MAGDALENA LEERios: [address] [place] [address]Ryk: (HP) Primary Insurance:[employer] BCBS MEDICAID O[place]OPolicy Number: [id number] Date:2022-08-10 MAGDALENA ENNISB: [id number] [address] [place] [address] [facility] 06/18/2024 Magdalena Ennis[address] [place] [address]Idz: (HP) Primary Insurance:Anthem [place] MedicaidPolicy Number: [id number] Date:[id number] [address] [place] [address]EK: Magdalena Rashid HiwotrukhsanaKYLE: [id number] [address] [place] [address]Ner: (HP) [facility] 06/18/2024 Secondary Insurance:Self PayPolicy Number: Effective Date:2024-05-23 [facility] 04/15/2024 Magdalena Ennis[address] [place] [address]Ykb: (HP) Primary Insurance:[place] MedicaidPolicy Number: [id number] Date:8875-25-99US [address] [place] [address]WV: Magdalena EnnisB: [id number] [address] [place] [address]Iir: (HP) [facility] 04/15/2024 Secondary Insurance:Self PayPolicy Number: Effective Date:2024-04-15 [facility] 04/05/2024 MAGDALENA Rashid HIWOTRUKHSANAB: [address] [place] [address]Vly: (HP)MAGDALENARICH ENNISB: [address] [place] [address]Rks: (HP) Primary Insurance:[place] BCBS MEDICAID [place]OPolicy Number: [id number] Date:2022-08-10 MAGDALENARICH [facility]: [id number] [address] [place] [address] [facility] 03/21/2024 MAGDALENARICH [facility] [facility] [place] [address]Jbd: (HP) Primary Insurance:[employer] MEDICAIDPolicy Number: [id number] Date:2022-08-10 [facility] JESUS [facility]: [id number] [place] [address] [facility] 03/21/2024 [facility] [place] [address]Tuc: (HP) Primary Insurance:[employer] MEDICAIDPolicy Number: [id number] Date:2022-08-10 [facility]: [id number] [place] [address] [facility] 2024 [facility] [place], [place] [address]Lcj: (HP) Primary Insurance:[employer] MEDICAIDPolicy Number: [id number] Date:2022-08-10 [facility]: [id number] [place] [address] [facility] 2024 [facility], [place] [address]Odi: (HP) Primary Insurance:[employer] MEDICAIDPolicy Number: [id number] Date:2022-08-10 [facility]: [id number] [place] [address] [facility] 2024 [facility] [place], [place] [address]Omd: (HP) Primary Insurance:[employer] MEDICAIDPolicy Number: [id number] Date:2022-08-10 [facility]: [id number] [place], [place] [address]Obg: (HP) [facility]
[2025-01-14 11:46] LABS: Hematocrit 34.9 % (36.0-48.0); Hemoglobin 11.0 g/dL (12.0-16.0); Immature Granulocytes Abs Auto 0.03 10^3/uL (0.00-0.03); Immature Granulocytes Pct Auto 0.2 % (0.0-0.5); Lymphocytes Absolute Auto 3.2 10^3/uL (1.2-3.8); Mean Corpuscular HGB Conc 31.5 g/dL (29.9-35.2); Mean Corpuscular Hemoglobin 24.6 pg (26.7-34.0); Mean Corpuscular Volume 77.9 fL (81.0-99.0); Platelet Count 456 10^3/uL (150-450); Red Blood Count 4.48 10^6/uL (4.20-5.40); White Blood Count 12.9 10^3/uL (4.0-11.0)
[2025-01-14 11:53] LABS: Glucose Urine UA NEGATIVE (NEGATIVE)
[2025-01-14 12:12] LABS: Anion Gap 11.7; Blood Urea Nitrogen 12.0 mg/dL (7.0-18.0); Calcium 9.2 mg/dL (8.5-10.1); Carbon Dioxide 29.1 mmol/L (21.0-32.0); Chloride 103 mmol/L (98-107); Estimated GFR (African America >60 (>=60 mL/min/1.73m^2); Estimated GFR (Non-African Ame >60 (>=60 mL/min/1.73m^2); Glucose 114 mg/dL (74-106); Potassium 3.8 mmol/L (3.5-5.1); Sodium 140 mmol/L (136-145); Uric Acid 5.5 mg/dL (2.6-6.0)
[2025-01-14 13:51] LABS: Cast Seen? NONE SEEN #/LPF (NONE SEEN); Crystals Seen? None Seen #/HPF (None Seen)
[2025-01-16 18:08] LABS: Antinuclear Antibodies, IFA Positive (.)
== END 2025-01-14 11:22 | disposition home or self-care (01) ==
LOC: LAB 11:22
PROVIDERS: PCP Family Medicine; Visit Provider Family Medicine
DX: M25.50 Pain in unspecified joint (principal); R73.03 Prediabetes; R00.2 Palpitations; R30.0 Dysuria
CPT/HCPCS: 36415; 80048; 81001; 83036; 84550; 85025; 85652; 86038; 86140; 87086

== ENCOUNTER 2025-02-27 19:45 | Emergency (ER) | payer MEDICAID, SELFPAY ==
[2025-02-27 20:02] VITALS: BP 159/103; PULSE 123; TEMP 36.7; O2SAT 98; BMI 46.8
[2025-02-27] MEDS: 0.9 % SODIUM CHLORIDE 1,000 ML 1000 ML IV (21:31)
[2025-02-27 21:32] LABS: Hematocrit 34.5 % (36.0-48.0); Hemoglobin 11.1 g/dL (12.0-16.0); Immature Granulocytes Abs Auto 0.03 10^3/uL (0.00-0.03); Immature Granulocytes Pct Auto 0.3 % (0.0-0.5); Lymphocytes Absolute Auto 2.0 10^3/uL (1.2-3.8); Mean Corpuscular HGB Conc 32.2 g/dL (29.9-35.2); Mean Corpuscular Hemoglobin 24.9 pg (26.7-34.0); Mean Corpuscular Volume 77.4 fL (81.0-99.0); Platelet Count 462 10^3/uL (150-450); Red Blood Count 4.46 10^6/uL (4.20-5.40); White Blood Count 10.4 10^3/uL (4.0-11.0)
--- NOTE | 2025-02-27 21:46 | ED.GENADUL1 ---
HPI HPI - General Adult General Chief complaint: Upper Respiratory Infection Stated complaint: Upper Respiratory Infection Time Seen by Provider: 02/27/25 20:27 Source: patient Mode of arrival: walk-in Limitations: no limitations History of Present Illness HPI narrative: This 30-year-old female presents for evaluation of multiple complaints. She states she has been extremely fatigued for the past 3 days. She has been sleeping nonstop. She has a cough with green-brown phlegm. She has not had any notable fever. She states she feels like she is breathing through a straw. She does have a history of vaping. She denies any abdominal pain but has been having diarrhea. She states she had approximately 4 episodes of diarrhea today. Her mouth feels dry and she has been urinating excessively for the past several days. She was seen in urgent care and told that she had pneumonia but no x-ray was done. Her mother is a nurse and told her to come to this emergency department for further evaluation. She was told that she could take doxycycline if she wanted to. She denies the possibility of . She has no specific abdominal pain. She denies any dizziness or syncope. She does not have any headache but states her throat feels dry. She states the symptoms started after she celebrated her birthday at [employer] where they were many people around and her girlfriend thinks that she caught something there. Related Data Home Medications ?Medication ?Instructions ?Recorded ?Confirmed aspirin 325 mg capsule 325 mg PO DAILY 06/30/23 02/27/25 cetirizine 10 mg tablet 10 mg PO QDAY 08/03/24 02/27/25 cholecalciferol (vitamin D3) 50 2,000 unit PO QDAY 08/03/24 02/27/25 mcg (2,000 unit) tablet cholestyramine (with sugar) 4 gram 1 ea PO DAILY 08/03/24 02/27/25 oral powder epinephrine 0.3 mg/0.3 mL 0.3 ml subcut Q1H PRN anaphylaxis 08/03/24 02/27/25 injection, auto-injector montelukast 10 mg tablet 10 mg PO DAILY 08/03/24 02/27/25 nifedipine 30 mg tablet,extended 60 mg PO DAILY 08/03/24 02/27/25 release 24 hr omeprazole 40 mg capsule,delayed 40 mg PO QDAY 08/03/24 02/27/25 release albuterol sulfate 90 mcg/actuation 2 inh inhalation Q4H PRN shortness 01/08/25 02/27/25 aerosol inhaler of breath or wheezing meclizine 25 mg tablet 25 mg PO QID PRN dizziness 01/08/25 02/27/25 Allergies Allergy/AdvReac Type Severity Reaction Status Date / Time Sulfa (Sulfonamide Allergy Severe Unknown Verified 02/27/25 20:01 Antibiotics) azithromycin (From Zithromax Allergy Unknown Unknown Verified 02/27/25 20:01 Z-Mayank) egg Allergy Unknown Unknown Verified 02/27/25 20:01 ketorolac (From Toradol) AdvReac Intermediate hallucinati Verified 01/08/25 17:26 ons Opioid HPI Opioid Management Most Recent Opioid Data: Last Pain Scale 7 10/13/24, 21:42 Ur Phencyclidine Scrn, (NEGATIVE) Negative 10/13/24, 21:35 Review of Systems ROS Narrative Vital signs and Nursing Notes reviewed: Patient is afebrile, she is tachycardic with a pulse of 123 and blood pressure is elevated 159/103, she is not hypoxic with pulse ox of 98% on room air General: Awake, alert, oriented, overweight adult female, no acute distress, lying comfortably on the stretcher HEENT: Normocephalic atraumatic, mucous membranes are moist and pink, eyes are clear, normal conjunctiva, vision is grossly intact, posterior pharynx is normal in appearance. Neck: Supple, no meningeal signs, no anterior or posterior cervical lymphadenopathy Chest: Lungs are clear with occasional expiratory wheezing most notable in the right lower lobe, patient is speaking in complete sentences, no accessory muscle use noted, she is not hypoxic with pulse ox of 98% on room air CVS: Regular rate and rhythm S1-S2, no murmurs rubs or gallops, pulses are brisk and equal bilaterally ABD: Soft, nondistended, nontender, no rebound guarding or rigidity, bowel sounds are normal, no pulsatile masses appreciated Extremities: Moving all extremities, no lower extremity tenderness or swelling noted, negative Homans' sign, pulses are brisk and equal bilaterally Skin: Normal in appearance without rash,pallor, petechiae or purpura Neuro: No focal deficits PFSH PFSH Social History Little interest or pleasure in doing things: not at all Feeling down, depressed, or hopeless: not at all Exam Constitutional Vital Signs, click to edit/add: Last Vital Signs Temp 98.0 F 02/27/25 20:02 Pulse 123 H 02/27/25 20:02 Resp 20 02/27/25 20:02 BP 159/103 H 02/27/25 20:02 Pulse Ox 98 02/27/25 20:02 Course Vital Signs Vital signs: Vital Signs Temperature 98.0 F 02/27/25 20:02 Pulse Rate 123 H 02/27/25 20:02 Respiratory Rate 20 02/27/25 20:02 Blood Pressure 159/103 H 02/27/25 20:02 Pulse Oximetry 98 02/27/25 20:02 Temperature 98.0 F 02/27/25 20:02 Pulse Rate 123 H 02/27/25 20:02 Respiratory Rate 20 02/27/25 20:02 Blood Pressure 159/103 H 02/27/25 20:02 Pulse Oximetry 98 02/27/25 20:02 Medical Decision Making [facility] Narrative Medical decision making narrative: This 30-year-old female who vapes but does not smoke cigarettes and has a history of some form of lupus presents for evaluation of 3 days of generalized fatigue, cough with productive phlegm, diarrhea. Symptoms started after being at [employer] for her birthday several days ago. She is not having any chest pain. Her vital signs are stable but she was tachycardic. She does have a history of sinus tachycardia. Patient's lungs are clear with some mild expiratory wheezing at the right base. She was noted to be tachycardic and an IV was placed. She was tested for COVID-19 and influenza which were negative. Routine labs were ordered. She has normal white count and hemoglobin. Electrolytes are normal. D-dimer is normal. Two-view chest x-ray was reviewed by myself and does not show any acute findings. The patient had been recently seen by her ENT and has a prescription for doxycycline. I explained to her that she likely has a viral syndrome with a cough. She can take the doxycycline if she wants to however I explained to her that this is likely viral in nature and antibiotics may be not indicated. I did order a breathing treatment for her but she declined this stating that she will give herself a breathing treatment when she gets home but needs the Nebules. She has been hemodynamically stable in the emergency department. She will be discharged home at this time with recommendation to quit vaping, drink plenty of fluids, follow-up closely with her family physician and return to the emergency department as needed for ongoing or worsening symptoms. Lab Data Labs: Lab Results 02/27/25 02/27/25 Range/Units 21:10 21:15 WBC 10.4 (4.0-11.0) 10^3/uL RBC 4.46 (4.20-5.40) 10^6/uL Hgb 11.1 L (12.0-16.0) g/dL Hct 34.5 L (36.0-48.0) % MCV 77.4 L (81.0-99.0) fL MCH 24.9 L (26.7-34.0) pg MCHC 32.2 (29.9-35.2) g/dL RDW 16.7 H (11.0-15.0) % Plt Count 462 H (150-450) 10^3/uL MPV 9.7 (9.5-13.5) fL Neut % (Auto) 60.0 (43.0-75.0) % Lymph % (Auto) 19.2 L (20.5-60.0) % [place] % (Auto) 6.7 (1.7-12.0) % Eos % (Auto) 13.2 H (0.9-7.0) % Baso % (Auto) 0.6 (0.2-2.0) % Neut # (Auto) 6.2 (1.4-6.5) 10^3/uL Lymph # (Auto) 2.0 (1.2-3.8) 10^3/uL [place] # (Auto) 0.7 (0.3-0.8) 10^3/uL Eos # (Auto) 1.4 H (0.0-0.7) 10^3/uL Baso # (Auto) 0.1 (0.0-0.1) 10^3/uL Abs Immat Gran (auto) 0.03 (0.00-0.03) 10^3/uL Imm/Tot Granulo (auto) 0.3 (0.0-0.5) % D-Dimer 0.46 (<=0.59) mg/L FEU Sodium 140 (136-145) mmol/L Potassium 3.7 (3.5-5.1) mmol/L Chloride 106 (98-107) mmol/L Carbon Dioxide 25.9 (21.0-32.0) mmol/L Anion Gap 11.8 BUN 9.0 (7.0-18.0) mg/dL Creatinine 0.78 (0.55-1.02) mg/dL Est GFR ( Amer) >60 (>=60 mL/min/1.73m^2) Est GFR (Non-Af Amer) >60 (>=60 mL/min/1.73m^2) BUN/Creatinine Ratio 11.5 Glucose 95 (74-106) mg/dL Lactate 1.3 (0.4-2.0) mmol/L Calcium 9.2 (8.5-10.1) mg/dL Total Bilirubin 0.2 (0.2-1.0) mg/dL AST 17 (15-37) U/L ALT 25 (14-59) U/L Alkaline Phosphatase 97 (46-116) U/L Total Protein 7.5 (6.4-8.2) g/dL Albumin 3.5 (3.4-5.0) g/dL Globulin 4.0 g/dL Albumin/Globulin Ratio 0.9 Influenza Type A Ag Negative Influenza Type B Ag Negative SARS-CoV-2 Ag (CV2AG) Negative (NEGATIVE) Discharge Plan Discharge Chief Complaint: Upper Respiratory Infection Clinical Impression: Viral upper respiratory tract infection with cough Patient Disposition: Home, Self-Care Time of Disposition Decision: 22:38 Condition: Good Prescriptions / Home Meds: No Action aspirin 325 mg capsule 325 mg PO DAILY albuterol sulfate 90 mcg/actuation HFA aerosol inhaler 2 inh INHALATION Q4H PRN (Reason: shortness of breath or wheezing) meclizine 25 mg tablet 25 mg PO QID PRN (Reason: dizziness) cetirizine 10 mg tablet 10 mg PO QDAY cholecalciferol (vitamin D3) 50 mcg (2,000 unit) tablet 2,000 unit PO QDAY cholestyramine (with sugar) 4 gram powder 1 ea PO DAILY epinephrine 0.3 mg/0.3 mL auto-injector 0.3 ml subcut Q1H PRN (Reason: anaphylaxis) montelukast 10 mg tablet 10 mg PO DAILY nifedipine 30 mg tablet extended release 24hr 60 mg PO DAILY omeprazole 40 mg capsule,delayed release(DR/EC) 40 mg PO QDAY Print Language: Spanish Instructions: Upper Respiratory Infection (ED), Viral Syndrome (ED) Referrals: Zoran Christy MD [Primary Care Provider, Family Practice] - 1 week
[2025-02-27 21:51] LABS: Lactate/Lactic Acid 1.3 mmol/L (0.4-2.0)
[2025-02-27 21:53] LABS: SARS-CoV-2 Ag NEGATIVE (NEGATIVE)
[2025-02-27 21:58] LABS: Alanine Aminotransferase 25 U/L (14-59); Albumin Globulin Ratio 0.9; Albumin Level 3.5 g/dL (3.4-5.0); Alkaline Phosphatase 97 U/L (46-116); Anion Gap 11.8; Aspartate Amino Transferase 17 U/L (15-37); Blood Urea Nitrogen 9.0 mg/dL (7.0-18.0); Calcium 9.2 mg/dL (8.5-10.1); Carbon Dioxide 25.9 mmol/L (21.0-32.0); Chloride 106 mmol/L (98-107); Estimated GFR (African America >60 (>=60 mL/min/1.73m^2); Estimated GFR (Non-African Ame >60 (>=60 mL/min/1.73m^2); Globulin 4.0 g/dL; Glucose 95 mg/dL (74-106); Potassium 3.7 mmol/L (3.5-5.1); Sodium 140 mmol/L (136-145); Total Protein 7.5 g/dL (6.4-8.2)
--- NOTE | 2025-02-27 22:03 | XR_ITS ---
The [address] [address] Patient Name: LILIANA RHODES MRN: [id number] date: 1995 Sex: F Assigned Patient Location: ER Current Patient Location: ER Accession/Order Number: [id number] Exam Date: 02/27/2025 22:17 Report Date: 02/27/2025 22:35 At the request of: BRAYDON BECKWITH MD Procedure: XR chest 2V Plain film chest Single view HISTORY: Cough and fever COMPARISON: 10/13/2024 FINDINGS: SUPPORT DEVICES: None POSTSURGICAL CHANGES: None HEART: Within normal limits PULMONARY AUGUSTO: Within normal limits MEDIASTINUM: Unremarkable LUNGS AND PLEURA: No acute lung process, pleural effusion or pneumothorax identified. BONY STRUCTURES: Intact ADDITIONAL FINDINGS None XR/XR chest 2V IMPRESSION: No acute process. Impression dictated by: Marlon Bond M.D. 02/27/2025 10:35 PM Dictation Location: [place] [address] Electronically authenticated by: [id number] Y Date: 02/27/2025 22:35
[2025-02-27] MEDS: IPRATROPIUM/ALBUTEROL SULFATE 3 ML AMPUL.NEB IH (22:41)
[2025-02-27 22:46] VITALS: BP 149/91; PULSE 104; O2SAT 97
== END 2025-02-27 22:55 | disposition home or self-care (01) ==
PROVIDERS: Emergency Provider Emergency Medicine; PCP Family Medicine
DX: J06.9 Acute upper respiratory infection, unspecified (principal); R05.9 Cough, unspecified; F17.290 Nicotine dependence, other tobacco product, uncomplicated
CPT/HCPCS: 36415; 71046; 80053; 81001; 83605; 85025; 85378; 87804; 87811; 96360; 99285

== ENCOUNTER 2025-06-23 12:48 | Emergency (ER) | payer MEDICAID, SELFPAY ==
[2025-06-23 12:54] VITALS: BP 171/94; PULSE 102; TEMP 37.1; O2SAT 97; BMI 44.1
--- NOTE | 2025-06-23 13:11 | ED_ITS ---
HPI HPI - General Adult General Chief complaint: Abdominal Pain Stated complaint: ABDOMINAL PAIN, VOMITING Time Seen by Provider: 06/23/25 12:59 Source: patient Mode of arrival: walk-in Limitations: no limitations History of Present Illness HPI narrative: Patient is a 30-year-old female with a few week history of right upper quadrant abdominal pain, nausea, and vomiting. She states that is been intermittent in nature and worsened in the past 24 to 48 hours and this morning she states that she vomited a large amount of emesis. She denies any fever, night sweats, or chills. She denies any previous abdominal surgery or history of gallstones or kidney stones. She is having her period currently. She denies any urinary symptoms. She did take a Zofran at home that somewhat helped with her nausea. Related Data Home Medications ?Medication ?Instructions ?Recorded ?Confirmed aspirin 325 mg capsule 325 mg PO DAILY 06/30/23 cetirizine 10 mg tablet 10 mg PO QDAY 08/03/2402/27 cholecalciferol (vitamin D3) 50 2,000 unit PO QDAY 02/27/25 mcg (2,000 unit) tablet cholestyramine (with sugar) 4 gram 1 ea PO DAILY 08/0302/27/25 oral powder epinephrine 0.3 mg/0.3 mL 0.3 ml subcut Q1H PRN anaphy laxis 08/03/24 02/27/25 injection, auto-injector montelukast 10 mg tablet 10 mg PO DAILY 08/03/2402/08 nifedipine 30 mg tablet,extended 60 mg PO DAILY 02/27/25 release 24 hr omeprazole 40 mg capsule,delayed 40 mg PO QDAY 5 02/27/25 release albuterol sulfate 90 mcg/actuation 2 inh inhalation Q4 H PRN shortness 01/08/25 02/27/25 aerosol inhaler of breath or wheezing meclizine 25 mg tablet 25 mg PO QID PRN dizziness 0 01/08/25 02/27/25 Allergies Allergy/AdvReac Type Severity Reaction Status Date / Time Sulfa (Sulfonamide Allergy Severe Unknown Verified 06/23/25 12:57 Antibiotics) azithromycin (From Zithromax Allergy Unknown Unknown Verified 06/23/25 12:57 Z-Mayank) egg Allergy Unknown Unknown Verified 06/23/25 12:57 ketorolac (From Toradol) AdvReac Intermediate hallucinati Verified 06/23/25 12:57 ons Opioid HPI Opioid Management Most Recent Opioid Data: Last Pain Scale 1 Today, 12:54 Ur Phencyclidine Scrn, (NEGATIVE) Negative , 21:35 Review of Systems ROS Status of ROS 10 or more systems reviewed and unremark able except as noted in history and below PFSH PFSH Social History Little interest or pleasure in doing things: not at all Feeling down, depressed, or hopeless: not at all Exam Narrative Exam Narrative: General: No distress, obese, age-appropriate Skin: Warm, dry, no pallor. No rash. Head: Normocephalic, atraumatic. Neck: Supple, non-tender. Eye: Pupils are equal, round and EOMI. No scleral icterus. Ears, Nose, Mouth, and Throat: No nasal mucosal hypertrophy. Oral mucosa is moist, no posterior oropharynx erythema, uvula is mid-line Cardiovascular: Regular Rate and Rhythm without murmur, gallop or rub. Respiratory: No accessory muscle use or respiratory distress. Lungs are clear to auscultation, no wheezing, rales or rhonchi Chest Wall: no tenderness Back: No midline thoracic or lumbar vertebral tenderness. Musculoskeletal: Full ROM of all extremities, no calf or popliteal tenderness GI: Abdomen is soft, obese, mildly tender to palpation mid right abdomen. No masses appreciated. No rebound, guarding, or rigidity noted. Neurological: A&O x4. No cranial nerve dysfunction observed. No truncal ataxia. Moves all extremities. Sensation intact. Psychiatric: Cooperative and interactive. Normal mood and affect. Constitutional Vital Signs, click to edit/add: Last Vital Signs Temp 98.8 F 06/23/25 12:54 Pulse 102 H 06/23/25 12:54 Resp 18 06/23/25 12:54 BP 171/94 H 06/23/25 12:54 Pulse Ox 97 06/23/25 12:54 Documenting provider has reviewed patient's vital signs: yes Course Vital Signs Vital signs: Vital Signs Temperature 98.8 F 06/23/25 12:54 Pulse Rate 102 H 06/23/25 12:54 Respiratory Rate 18 06/23/25 12:54 Blood Pressure 171/94 H 06/23/25 12:54 Pulse Oximetry 97 06/23/25 12:54 Temperature 98.8 F 06/23/25 12:54 Pulse Rate 102 H 06/23/25 12:54 Respiratory Rate 18 06/23/25 12:54 Blood Pressure 171/94 H 06/23/25 12:54 Pulse Oximetry 97 06/23/25 12:54 Medical Decision Making [facility] Narrative Medical decision making narrative: 30-year-old female presenting with intermittent right upper quadrant abdominal pain, nausea, and vomiting that started last week, acutely worsened over the past 24?48 hours. On arrival she is hemodynamically stable, afebrile, and denies urinary symptoms. She is currently on her period. She denies need for nausea medication or pain medication. RUQ Abdominal pain, N/V - Labs reveal WBC 9.5, CMP and lipase within normal limits, urinalysis with mild bacteriuria but asymptomatic, and negative test. - RUQ ultrasound shows no gallbladder pathology, with findings suggestive of fatty liver. - CT abdomen/pelvis without contrast demonstrates no acute pathology, effectively ruling out nephrolithiasis. Given normal labs and imaging, acute surgical, biliary, pancreatic, or renal pathology has been excluded. Differential includes functional gastrointestinal pain and gynecologic causes (e.g., ovarian cyst, endometriosis), particularly given current menses. I discussed lab and imaging results with patient and her mother at bedside. Patient is asymptomatic from a urinary standpoint and wishes to await urine culture results before considering antibiotics due to prior C.diff infection; no antibiotics indicated at this time. Patient tolerated oral intake in the ED with antiemetic therapy and is hem odynamically stable. She denies need for nausea medication at discharge. She was discharged with symptomatic management, return precautions for worsening pain, vomiting, fever, and follow-up recommendations with primary care. Differential Diagnosis Differential Diagnosis: Biliary colic, acute cholecystitis, gallstone pancreatitis Lab Data Lab results reviewed: Yes I reviewed the patient's lab results Labs: Lab Results 06/23/25 06/23/25 Range/Units 13:05 13:13 WBC 9.5 (4.0-11.0) 10^3/uL RBC 4.67 (4.20-5.40) 10^6/uL Hgb 11.2 L (12.0-16.0) g/dL Hct 35.7 L (36.0-48.0) % MCV 76.4 L (81.0-99.0) fL MCH 24.0 L (26.7-34.0) pg MCHC 31.4 (29.9-35.2) g/dL RDW 17.1 H (11.0-15.0) % Plt Count 456 H (150-450) 10^3/uL MPV 9.2 L (9.5-13.5) fL Neut % (Auto) 77.3 H (43.0-75.0) % Lymph % (Auto) 14.1 L (20.5-60.0) % [place] % (Auto) 4.4 (1.7-12.0) % Eos % (Auto) 3.7 (0.9-7.0) % Baso % (Auto) 0.2 (0.2-2.0) % Neut # (Auto) 7.3 H (1.4-6.5) 10^3/uL Lymph # (Auto) 1.3 (1.2-3.8) 10^3/uL [place] # (Auto) 0.4 (0.3-0.8) 10^3/uL Eos # (Auto) 0.4 (0.0-0.7) 10^3/uL Baso # (Auto) 0.0 (0.0-0.1) 10^3/uL Abs Immat Gran (auto) 0.03 (0.00-0.03) 10^3/uL Imm/Tot Granulo (auto) 0.3 (0.0-0.5) % Sodium 142 (136-145) mmol/L Potassium 4.0 (3.5-5.1) mmol/L Chloride 104 (98-107) mmol/L Carbon Dioxide 28.8 (21.0-32.0) mmol/L Anion Gap 13.2 BUN 9.0 (7.0-18.0) mg/dL Creatinine 0.83 (0.55-1.02) mg/dL Est GFR ( Amer) >60 (>=60 mL/min/1.73m^2) Est GFR (Non-Af Amer) >60 (>=60 mL/min/1.73m^2) BUN/Creatinine Ratio 10.8 Glucose 99 (74-106) mg/dL Calcium 9.0 (8.5-10.1) mg/dL Total Bilirubin 0.6 (0.2-1.0) mg/dL AST 22 (15-37) U/L ALT 20 (14-59) U/L Alkaline Phosphatase 91 (46-116) U/L Total Protein 7.5 (6.4-8.2) g/dL Albumin 3.7 (3.4-5.0) g/dL Globulin 3.8 g/dL Albumin/Globulin Ratio 1.0 Lipase 31.0 (16.0-77.0) U/L Serum HCG, Qual Negative (NEGATIVE) Urine Color Yellow (YELLOW) Urine Clarity Clear (CLEAR) Urine pH 6.0 (5.0-9.0) Ur Specific [place] 1.025 (1.005-1.025) Urine Protein 30 A (NEG/TRACE) mg/dL Urine Glucose (UA) Negative (NEGATIVE) mg/dL Urine Ketones Trace A (NEGATIVE) mg/dL Urine Occult Blood Large A (NEGATIVE) Urine Nitrite Negative (NEGATIVE) Urine Bilirubin Negative (NEGATIVE) Urine Urobilinogen 0.2 (0.2-1.0) EU/dL Ur Leukocyte Esterase Negative (NEGATIVE) Urine RBC 20-50 A (0-2) #/HPF Urine WBC 2-5 A (NONE SEEN) #/HPF Ur Squamous Epith Cells Moderate A (NONE/RARE) #/LPF Urine Crystals None seen (None Seen) #/HPF Urine Bacteria Moderate A (NONE SEEN) #/HPF Urine Casts None seen (NONE SEEN) #/LPF Urine Mucus Large A (NONE SEEN) Ur Culture Indicated? [place] [place] scan - abdomen: Attestation: I have reviewed the pertinent imaging results. Radiologist's impression: ITS Impressions Upper Quadrant Ultrasound 06/23/25 13:19 IMPRESSION: NO GALLBLADDER PATHOLOGY. SUSPECTED FATTY LIVER. Impression dictated by: Essie Rdz M.D. 06/23/2025 2:00 PM Dictation Location: [place] [address] Electronically authenticated by: [id number] Y Date: 06/23/2025 14:00 Abdomen/Pelvis CT 06/23/25 14:17 IMPRESSION: No acute findings. Impression dictated by: Nima Portillo Jr., D.O. 06/23/2025 2:46 PM Dictation Location: [place] [address] Electronically authenticated by: [id number] Y Date: 06/23/2025 14:46 Discharge Plan Discharge Chief Complaint: Abdominal Pain Clinical Impression: Abdominal pain, Nausea & vomiting Patient Disposition: Home, Self-Care Time of Disposition Decision: 15:25 Condition: Good Mode of Transportation: Private Vehicle Prescriptions / Home Meds: No Action aspirin 325 mg capsule 325 mg PO DAILY albuterol sulfate 90 mcg/actuation HFA aerosol inhaler 2 inh INHALATION Q4H PRN (Reason: shortness of breath or wheezing) meclizine 25 mg tablet 25 mg PO QID PRN (Reason: dizziness) cetirizine 10 mg tablet 10 mg PO QDAY cholecalciferol (vitamin D3) 50 mcg (2,000 unit) tablet 2,000 unit PO QDAY cholestyramine (with sugar) 4 gram powder 1 ea PO DAILY epinephrine 0.3 mg/0.3 mL auto-injector 0.3 ml subcut Q1H PRN (Reason: anaphylaxis) montelukast 10 mg tablet 10 mg PO DAILY nifedipine 30 mg tablet extended release 24hr 60 mg PO DAILY omeprazole 40 mg capsule,delayed release(DR/EC) 40 mg PO QDAY Print Language: Setswana Instructions: Acute Nausea and Vomiting (ED), Abdominal Pain (ED) Additional Instructions: Symptoms to Monitor / Return to ED Immediately Call 911 or return to the ED if you develop any of the following: * Fever or chills * Persistent or worsening abdominal pain * Persistent vomiting or inability to tolerate fluids * Yellowing of the skin or eyes (jaundice) * Blood in stool or vomit * Severe lower abdominal/pelvic pain Medications / Symptom Relief * Pain: Use acetaminophen or NSAIDs as directed (avoid NSAIDs if stomach upset occurs). * Nausea: You may take [id number] anti-nausea medication (e.g., meclizine) if needed, unless contraindicated. * Hydration: Drink small amounts of fluids frequently; avoid dehydration. * Diet: Start with bland foods (toast, rice, bananas, applesauce) and avoid greasy or heavy meals until symptoms improve. Follow-Up * Primary care provider: Within 1?2 weeks for ongoing evaluation Lifestyle / Preventive Advice * Maintain healthy diet and hydration. * Keep a symptom diary (timing, triggers, meals, medications, menstrual cycle) to assist with follow-up. Referrals: Zoran Christy MD [Primary Care Provider, Family Practice] - 1 week
--- NOTE | 2025-06-23 13:19 | US_ITS ---
The [address] [address] Patient Name: LILIANA RHODES MRN: [id number] date: 1995 Sex: F Assigned Patient Location: ER Current Patient Location: ED.[facility] Accession/Order Number: [id number] Exam Date: 06/23/2025 13:25 Report Date: 06/23/2025 14:00 At the request of: LUX YBARRA Procedure: US right upper quadrant LIMITED RIGHT UPPER QUADRANT ABDOMINAL ULTRASOUND CLINICAL HISTORY: Intermittent RUQ pain, N/V COMPARISON: CT 03/27/2024 The gallbladder is physiologically distended without shadowing calculi, wall thickening or pericholecystic fluid. No intra- or extrahepatic biliary dilatation is evident. The common duct measures 2 mm. The liver is is slightly echogenic with respect to the right kidney and this may be fatty infiltration. No focal intrahepatic masses are seen. There is appropriate hepatopetal flow within the main portal vein. The pancreas shows no significant sonographic abnormality. Evaluation of the right kidney reveals no hydronephrosis or fluid within Justice's pouch. US/US right upper quadrant IMPRESSION: NO GALLBLADDER PATHOLOGY. SUSPECTED FATTY LIVER. Impression dictated by: Essie Rdz M.D. 06/23/2025 2:00 PM Dictation Location: [place] [address] Electronically authenticated by: [id number] Y Date: 06/23/2025 14:00
[2025-06-23 13:21] LABS: Glucose Urine UA NEGATIVE (NEGATIVE)
[2025-06-23 13:23] LABS: Hematocrit 35.7 % (36.0-48.0); Hemoglobin 11.2 g/dL (12.0-16.0); Immature Granulocytes Abs Auto 0.03 10^3/uL (0.00-0.03); Immature Granulocytes Pct Auto 0.3 % (0.0-0.5); Lymphocytes Absolute Auto 1.3 10^3/uL (1.2-3.8); Mean Corpuscular HGB Conc 31.4 g/dL (29.9-35.2); Mean Corpuscular Hemoglobin 24.0 pg (26.7-34.0); Mean Corpuscular Volume 76.4 fL (81.0-99.0); Platelet Count 456 10^3/uL (150-450); Red Blood Count 4.67 10^6/uL (4.20-5.40); White Blood Count 9.5 10^3/uL (4.0-11.0)
[2025-06-23 13:28] LABS: Cast Seen? NONE SEEN #/LPF (NONE SEEN); Crystals Seen? None Seen #/HPF (None Seen); Urine Culture Indicated YES-FRMC
[2025-06-23 13:36] LABS: Alanine Aminotransferase 20 U/L (14-59); Albumin Globulin Ratio 1.0; Albumin Level 3.7 g/dL (3.4-5.0); Alkaline Phosphatase 91 U/L (46-116); Anion Gap 13.2; Aspartate Amino Transferase 22 U/L (15-37); Blood Urea Nitrogen 9.0 mg/dL (7.0-18.0); Calcium 9.0 mg/dL (8.5-10.1); Carbon Dioxide 28.8 mmol/L (21.0-32.0); Chloride 104 mmol/L (98-107); Estimated GFR (African America >60 (>=60 mL/min/1.73m^2); Estimated GFR (Non-African Ame >60 (>=60 mL/min/1.73m^2); Globulin 3.8 g/dL; Glucose 99 mg/dL (74-106); Lipase 31.0 U/L (16.0-77.0); Potassium 4.0 mmol/L (3.5-5.1); Sodium 142 mmol/L (136-145); Total Protein 7.5 g/dL (6.4-8.2)
--- NOTE | 2025-06-23 14:17 | CT_ITS ---
The [address] [address] Patient Name: LILIANA RHODES MRN: [id number] date: 1995 Sex: F Assigned Patient Location: ER Current Patient Location: ER Accession/Order Number: [id number] Exam Date: 06/23/2025 14:28 Report Date: 06/23/2025 14:46 At the request of: LUX YBARRA Procedure: CT abdomen pelvis wo con CT ABDOMEN AND PELVIS WITHOUT INTRAVENOUS CONTRAST: CLINICAL HISTORY: Radiating R Flank pain, N/V, r/o Kidney stone COMPARISON: CT abdomen and pelvis 03/27/2024 TECHNIQUE: Spiral images were obtained through the abdomen and pelvis without intravenous contrast. This CT exam was performed using one or more following dose reduction techniques: Automated exposure control, adjustment of the mA and/or kV according to patient size, or use of iterative reconstruction technique. FINDINGS: Lung Bases: [No acute findings] Organs:Suboptimal evaluation due to lack of IV contrast. Liver spleen gallbladder pancreas adrenal glands left kidney and aorta all appear unremarkable.[Small cyst right kidney. GI: Stomach is grossly unremarkable. Small bowel appears nondilated. Appendix appears normal. No acute colonic abnormality. Left colon diverticulosis.[ Pelvis:[Urinary bladder and uterus appear unremarkable.] Peritoneum/Retroperitoneum:No free air or free fluid or lymphadenopathy.[ Abd wall/Bones:Abdominal wall demonstrates no acute findings. Osseous structures demonstrate degenerative change.[ CT/CT abdomen pelvis wo con IMPRESSION: No acute findings. Impression dictated by: Nima Portillo Jr., D.O. 06/23/2025 2:46 PM Dictation Location: [place] [address] Electronically authenticated by: [id number] Y Date: 06/23/2025 14:46
== END 2025-06-23 15:48 | disposition home or self-care (01) ==
PROVIDERS: Physician Assistant; Emergency Provider Emergency Medicine; PCP Family Medicine
DX: R10.11 Right upper quadrant pain (principal); R11.2 Nausea with vomiting, unspecified
CPT/HCPCS: 36415; 74176; 76705; 80053; 81001; 83690; 84703; 85025; 87086; 99284